=== PATIENT | female | born 1940 | race Caucasian/White ===

== ENCOUNTER 2016-03-08 14:50 | Inpatient (IN) ==
[2016-03-08] MEDS ORDERED: Vancomycin 1,000 MG in D5% in Water 250 ML IVPB ONE (15:57)
--- NOTE | 2016-03-08 16:32 | Emergency Department Note ---
START Narrative - START START: I examined this patient and my medical decision-making was reviewed with the CHANNEL LIP WETTER/PA/Advanced Practice Nurse/Resident Physician. I agree with the documented findings, disposition and treatment plan as described except to the extent set forth below. ED attending note: Patient seen with emergency medicine resident Dr. Pizano. Please see a copy of his note for details of the H&P, evaluation, management and disposition of this patient. We independently had [id number] contact with the patient Briefly: 75-year-old patient advanced peripheral vascular disease, had multiple toe amputations on the left foot including the great toe and second third toes. Has been appears to be cellulitis swelling and pain of the foot. Lab work and imaging are pending. We will exclude the possibility of osteomyelitis. Disposition pending. Patient stable.
[2016-03-08 16:37] LABS: Basophils # 0.1 K/mcL (0.0-0.2); Basophils % 0.6 %; Eosinophils # 0.2 K/mcL (0.0-0.6); Eosinophils % 1.8 %; Hematocrit 35.5 % (35.3-44.9); Hemoglobin 10.8 g/dL (11.5-15.4); Immature Granulocytes % 0.6 % (0-4); Lymphocytes # 1.1 K/mcL (0.6-4.6); Lymphocytes % 7.8 %; Mean Corpuscular HGB Conc 30.4 g/dL (31.6-35.5); Mean Corpuscular Hemoglobin 24.9 pg (28.0-33.3); Mean Corpuscular Volume 81.8 fL (83.0-100.0); Mean Platelet Volume 9.8 fL (9.4-12.4); Monocytes % 7.6 %; Neutrophils # 11.1 K/mcL (1.6-8.9); Platelet Count 415 K/mcL (140-400); Red Blood Count 4.34 M/mcL (3.82-4.97); Red Cell Distribution Width 16.6 % (11.5-14.5); Segmented Neutrophils % 81.6 %
[2016-03-08 16:45] LABS: INR 3.6; Prothrombin Time 40.2 Seconds (9.4-12.1)
[2016-03-08 16:49] LABS: Calcium 9.6 mg/dL (8.6-10.8); Potassium 4.2 mEq/L (3.5-4.5)
[2016-03-08] MEDS ORDERED: 0.9 % Sodium Chloride 1,000 ML IV ONE (17:36)
--- NOTE | 2016-03-08 17:54 | Emergency Department Note ---
Disposition Clinical Impression: Cellulitis Qualifiers: Site of cellulitis: extremity Site of cellulitis of extremity: lower extremity Laterality: left Qualified Code(s): L03.116 - Cellulitis of left lower limb Osteomyelitis Qualifiers: Osteomyelitis location: foot Laterality: left Chronicity: acute Qualified Code( s): M86.172 - Other acute osteomyelitis, left ankle and foot Disposition: Admitted As Inpatient Condition: Good Referrals: Hermes Page DO [Primary Care Provider] - Forms: ED Satisfaction Letter Time of Disposition: 18:26 Extremity Problem HPI - General Chief complaint: ED Extremity Problem,Nontraumatic Stated complaint: L foot blister/wound Time Seen by Provider: 03/08/16 15:36 Source: patient Limitations: no limitations Nursing Notes Reviewed: Yes Vital Signs Reviewed: Yes - History of Present Illness HPI Narrative: Patient presents with personal vehicle to be evaluated for left lower extremity swelling redness and drainage. She had a blister on insulin but that ruptured a day or 2 ago. She denies any fevers or chills nausea vomiting diarrhea. No other issues according to her. She is just concerned because she completed a course of treatment for sinusitis the left foot and wanted to have it evaluated. She is cared for by Dr. Mendez at this facility [facility] Subjective Complaint: extremity pain Injury Location: left, lower extremity Pain Scale: 0 Quality: aching Radiation: distal Improves with: nothing Worsens with: nothing Associated symptoms: Reports: swelling, redness Context: history of peripheral vascular disease - Related Data Home Medications Medication Instructions Recorded Confirmed Amlodipine [Norvasc] 5 mg PO DAILY 06/25/15 03/02/16 Clopidogrel [Plavix] 75 mg PO DAILY 06/25/15 03/02/16 Furosemide [Lasix] 40 mg PO BID 06/25/15 03/02/16 Hydrocodone/Acetaminophen [Vicodin 1 each PO Q6H PRN 06/25/15 03/02/16 Es 7.5-300 mg Tablet] Isosorbide DInitrate [Isochron] 30 mg PO QDPC 06/25/15 03/02/16 LORazepam [Lorazepam] 0.5 mg PO BID PRN 06/25/15 03/02/16 Levothyroxine [Synthroid] 175 mcg PO 0630 06/25/15 03/02/16 Meclizine [Antivert] 25 mg PO Q8H PRN MDD nauea 06/25/15 03/02/16 Metoprolol Tartrate [Lopressor] 50 mg PO BID 06/25/15 03/02/16 Mirtazapine [Remeron] 15 mg PO HS PRN 06/25/15 03/02/16 Multivit-Min/FA/Lycopen/Lutein [A 1 each PO QDPC 06/25/15 03/02/16 Thru Z Select Multivit Tab] Omeprazole [PriLOSEC] 20 mg PO DAILY 06/25/15 03/02/16 Paricalcitol [Zemplar] 1 mcg PO DAILY 06/25/15 03/02/16 TraMADol [Ultram] 50 mg PO Q6H PRN 06/25/15 03/02/16 Fluconazole [Diflucan] 150 mg PO DAILY 03/02/16 03/02/16 Sulfamethoxazole/Trimeth SS 1 each PO BID 03/02/16 03/02/16 [Bactrim] Previous Rx's Medication Instructions Recorded Acetaminophen [Tylenol] 650 mg PO Q6HR PRN #0 tablet 06/28/15 Docusate [Colace] 100 mg PO BID PRN #0 capsule 06/28/15 MOM Conc [MILK OF MAGNESIA conc] 10 ml PO DAILY PRN #0 ud.liq 06/28/15 Simvastatin [Zocor] 20 mg PO HS tablet 06/28/15 Warfarin [Coumadin] 3 mg PO 1800 #30 tablet 07/03/15 Oxycodone HCl/Acetaminophen 1 - 2 each PO Q6H PRN #24 tablet 07/06/15 [Percocet 5-325 mg Tablet] CloNIDine HCl 0.1 mg PO BID #60 tablet 07/16/15 Insulin NPH/REG 70/30 (HUMAN) 28 unit SQ BIDAC #2 vial 07/16/15 [Humulin 70/30 Vial] Zinc Sulfate 220 mg PO DAILY #30 capsule 07/16/15 Allergies Allergy/AdvReac Type Severity Reaction Status Date / Time codeine Allergy Hives Verified 03/02/16 10:31 Penicillins [PCN] Allergy Hives Verified 03/02/16 10:31 All systems ED: reviewed and negative except as stated. Constitutional: Denies: fever, chills Cardiovascular: Denies: chest pain, palpitations Respiratory: Denies: cough, dyspnea, wheezes, hemoptysis Gastrointestinal: Denies: abdominal pain, nausea, vomiting Genitourinary: Denies: frequency Musculoskeletal: Denies: back pain, neck pain Neurological: Denies: headache Past Medical History - Past Medical History Attestation: Yes The following information was validated with the patient. Source: patient Medical history: Reports: arthritis, asthma, DVT, diabetes, hyperlipidemia, hypertension, myocardial infarction, peripheral artery disease, other Surgical history: Reports: carotid endarterectomy, cholecystectomy, orthopedic, other, other (She has had amputation of the left big toe.) Psychiatric history: Reports: anxiety, depression - Social History Smoking Status: Former smoker Smokeless Tobacco Status: No Alcohol use: Reports: none Drug use: Reports: none Physical Exam - General Limitations: no limitations General appearance: alert, in no apparent distress - Head Head exam: atraumatic, normocephalic, normal inspection - Eye Eye exam: Present: normal appearance, PERRL, EOMI - Respiratory Respiratory exam: Present: normal lung sounds bilaterally - Cardiovascular Cardiovascular exam: Present: regular rate, normal rhythm, normal heart sounds - Extremities Exam Extremities exam: Present: normal inspection, full ROM. Absent: tenderness, pedal edema - Neurological Exam Neurological exam: Present: alert, oriented X3, CN II-XII intact. Absent: normal gait (Patient is wheelchair bound) - Psychiatric Psychiatric exam: Present: normal affect, normal mood - Skin Skin exam: Present: warm, dry, intact, normal color Course Course Narrative: Patient seen and examined the time of arrival. See history of present illness. 75-year-old female presents for personal vehicle for evaluation of redness swelling and blister to the left foot. She was seen by her voice network engineer several weeks ago and has been on antibiotics for the last several days for cellulitis and infection. She has no blood clots in the left lower extremity. Presents here today with a large blister that ruptured on the medial aspect of her left foot. There is redness swelling and warmth to the foot radiating all the way up to the proximal tibia. There is no crepitus to the skin and evaluation. Vital signs are stable she is afebrile. Right lower extremity does have drainage from the catheter no signs of cellulitis or infection. Patient has tenderness over the dorsum of the foot and she has difficulty with movement of the toes. Showed he has what appears to be in a dictation of the great toe of the left foot secondary to diabetes. Patient is concerning for diabetic foot related infection and osteomyelitis based on exam and presentation. Basic labs ESR first dose IV antibiotics as well as imaging ordered on initial triage. Patient stable a syncopal event. Disposition pending workup and treatment course - Reevaluation(s) Reevaluation #1: Patient found to have mild elevated white blood cell count and ESR greater than 130. Patient is a x-ray of the foot that shows what appears to be bony deterioration of the calcaneus and medial malleolus. CT imaging warranted at this time. Patient started on IV vancomycin. She at this point was discussed with the on-call voice network engineer Dr. thompson. He recommended admission to the hospital for further evaluation by podiatry. Rest of her laboratory workup including anemia and elevated creatinine appear to be within baseline limits at this point. Patient will be discussed with the hospitalist for admission process and what appears to be osteomyelitis and cellulitis of left lower extremity. Patient stable form to this plan. IV antibiotics provided this time. Time: 18:25 Reevaluation #2: Patient discussed with the hospitalist Dr. land. Recommended Zosyn for IV treatment of osteomyelitis. Patient stable a significant bed. Patient will be admitted to hospitals for definitive management. Other recommendations at this time. Time: 18:50 Vital Signs Temperature 97.7 F 03/08/16 14:51 Pulse Rate 64 03/08/16 14:51 Respiratory Rate 16 03/08/16 14:51 Blood Pressure 153/59 03/08/16 14:51 O2 Sat by Pulse Oximetry 100 03/08/16 14:51 Temperature 97.7 F 03/08/16 14:51 Pulse Rate 65 03/08/16 16:48 Respiratory Rate 17 03/08/16 16:48 Blood Pressure 151/59 03/08/16 16:48 O2 Sat by Pulse Oximetry 100 03/08/16 16:48 Oxygen Delivery Oxygen Delivery Room Air Extremity Problem, Nontraumati - MDM Narrative Medical decision making narrative: Synovitis, osteomyelitis - Medical Records Medical records reviewed: Yes I reviewed the patient's medical records. - Lab Data Lab results reviewed: Yes I reviewed the patient's lab results. Result diagrams: 03/08/16 16:25 03/08/16 16:25 Lab Results 03/08/16 03/08/16 03/08/16 Range/Units 16:25 16:25 16:25 WBC 13.5 H (4.3-11.1) K/mcL RBC 4.34 (3.82-4.97) M/mcL Hgb 10.8 L (11.5-15.4) g/dL Hct 35.5 (35.3-44.9) % MCV 81.8 L (83.0-100.0) fL MCH 24.9 L (28.0-33.3) pg MCHC 30.4 L (31.6-35.5) g/dL RDW 16.6 H (11.5-14.5) % Plt Count 415 H (140-400) K/mcL MPV 9.8 (9.4-12.4) fL Immature Gran % 0.6 (0-4) % Seg Neutrophils % 81.6 % Lymphocytes % 7.8 % Monocytes % 7.6 % Eosinophils % 1.8 % Basophils % 0.6 % Neutrophils # 11.1 H (1.6-8.9) K/mcL Lymphocytes # 1.1 (0.6-4.6) K/mcL Monocytes # 1.0 (0.0-1.3) K/mcL Eosinophils # 0.2 (0.0-0.6) K/mcL Basophils # 0.1 (0.0-0.2) K/mcL ESR >= 130 H (0-15) mm/hr PT (9.4-12.1) Seconds INR Sodium 137 (136-145) mEq/L Potassium 4.2 (3.5-4.5) mEq/L Chloride 97 L (98-109) mEq/L Carbon Dioxide 27 (19-29) mEq/L BUN 33 H (7-20) mg/dL Creatinine 2.44 H (0.57-1.11) mg/dL Est GFR ( Amer) 23 L (> 60) Est GFR (Non-Af Amer) 19 L (> 60) BUN/Creatinine Ratio 14 (6-26) Glucose 58 L (70-99) mg/dL Calculated Osmolality 289 (280-300) Calcium 9.6 (8.6-10.8) mg/dL 03/08/16 Range/Units 16:25 WBC (4.3-11.1) K/mcL RBC (3.82-4.97) M/mcL Hgb (11.5-15.4) g/dL Hct (35.3-44.9) % MCV (83.0-100.0) fL MCH (28.0-33.3) pg MCHC (31.6-35.5) g/dL RDW (11.5-14.5) % Plt Count (140-400) K/mcL MPV (9.4-12.4) fL Immature Gran % (0-4) % Seg Neutrophils % % Lymphocytes % % Monocytes % % Eosinophils % % Basophils % % Neutrophils # (1.6-8.9) K/mcL Lymphocytes # (0.6-4.6) K/mcL Monocytes # (0.0-1.3) K/mcL Eosinophils # (0.0-0.6) K/mcL Basophils # (0.0-0.2) K/mcL ESR (0-15) mm/hr PT 40.2 H (9.4-12.1) Seconds INR 3.6 Sodium (136-145) mEq/L Potassium (3.5-4.5) mEq/L Chloride (98-109) mEq/L Carbon Dioxide (19-29) mEq/L BUN (7-20) mg/dL Creatinine (0.57-1.11) mg/dL Est GFR ( Amer) (> 60) Est GFR (Non-Af Amer) (> 60) BUN/Creatinine Ratio (6-26) Glucose (70-99) mg/dL Calculated Osmolality (280-300) Calcium (8.6-10.8) mg/dL - Radiology Data Radiology results reviewed: Yes I reviewed the patient's radiology results. X-rays consistent with deterioration of the bony anatomy of the left foot. CT imaging pending
[2016-03-08] MEDS ORDERED: Piperacillin/Tazobactam 3.375 GM in D5% in Water (Mini-Bag+) 100 ML IVPB ONE (18:48)
[2016-03-08] MEDS ORDERED: Cefepime HCl 1,000 MG in D5% in Water (Mini-Bag+) 100 ML IVPB ONE (19:23)
--- NOTE | 2016-03-08 21:01 | Internal Med History&Physical ---
<FedericoKiesha Rodriguez Uma - Last Filed: 03/09/16 05:39> Date of Encounter: 03/08/16 Time of Encounter: 20:00 Assessment and Plan (1) Diabetic ulcer of left heel Current visit: No Status: Acute Concern for osteomyelitis WBC elevated CT not suggestive of osteomyelitis, 5th phalanx with soft tissue defect with diffuse fat stranding Cefipime, Zosyn and Vanc given in ED Will begin Vanc and Levoquin Podiatry consult-Dr. Marshall or Dr. Mendez to see patient in am Continue to follow blood cultures (2) Peripheral vascular disease Current visit: Yes Status: Chronic Arterial doppler to assess vascular disease Patient with history of vascular stent to left popliteal (3) Hypertension Current visit: No Status: Chronic Continue home medication as verified on 03/02/16 Patient unable to verify home medications Unable to contact Will verify home medications in am Qualifiers: Hypertension type: essential hypertension Qualified Code(s): I10 - Essential (primary) hypertension (4) CKD (chronic kidney disease) stage 4, GFR 15-29 ml/min Current visit: No Status: Chronic Renal function currently at baseline Continue to follow Abx per renal dosing by pharmacy (5) Femoral vein thrombosis, 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 Patient continues with coumadin clinic US doppler to left lower extremity INR supratherapuetic at 3.6 Will hold coumadin x1 Serial INR (6) DM2 (diabetes mellitus, type 2) Current visit: No Status: Chronic Continue home medication-Humalin 70/30 28u SQ BID Low-dose correction ACHS Patient unable to verify home medications Unable to contact Will verify home medications in am Qualifiers: Diabetes mellitus complication status: with kidney complications Diabetes mellitus complication detail: with chronic kidney disease Diabetes mellitus termite treater helper insulin use: unspecified termite treater helper insulin use status Chronic kidney disease stage: stage 4 (severe) Qualified Code(s): E11.22 - Type 2 diabetes mellitus with diabetic chronic kidney disease; N18.4 - Chronic kidney disease, stage 4 (severe) (7) CHF (congestive heart failure) Current visit: Yes Status: Acute Not an acute exacerbation Continue home medication as verified in ED 03/02/16 Qualifiers: Congestive heart failure type: unspecified congestive heart failure type Congestive heart failure chronicity: unspecified congestive heart failure chronicity Qualified Code(s): I50.9 - Heart failure, unspecified (8) Hypothyroidism Current visit: No Status: Chronic Continue home levothyroxine Patient unable to verify home medications Unable to contact Will verify home medications in am Qualifiers: Hypothyroidism type: unspecified Qualified Code(s): E03.9 - Hypothyroidism , unspecified Internal Medicine - H&P: HPI Chief complaint: wound on left foot Admitted From: Emergency Dept Plans for Post Hospital Care: Home History of present illness: Ms. Olivia is a 75 year old female who presents with multiple soft tissue wounds to left foot. Most concerning is a large wound located on the medial left heel. Patient states that a few days ago, her home health nurse was dressing the chronic wounds on her feet and noticed that a blister had burst open on the medial left heel. She states that wound was draining onto her socks. Patient admits to painful redness and swelling in the left foot and leg. She rates this pain as 8/10. Patient presented to the ED 6 days ago (03/02/16) for the left heel wound. Dr. Mendez, was contact by ED and recommended that the blister be cleaned and dressed with Adaptic and a bulky dressing. Patient also has a wound on the lateral left foot near the 5th toe, a wound on top of left second toe, a wound on the top of the left third toe, and a wound on the posterior right leg. She states that she has had multiple episodes of cellulitis. She also has had a DVT in left extremity, which caused her to be placed on coumadin. She presented to the ED after urging of staff at coumadin clinic today. Admits headache. Denies dizziness, fever, chills. Past Med Surg Social Fam HX - Past Medical History Medical history: arthritis, asthma, DVT, diabetes, hyperlipidemia, hypertension , myocardial infarction, peripheral artery disease, other Psychiatric history: anxiety, depression - Past Surgical History Surgical History: carotid endarterectomy, cholecystectomy, orthopedic, other, other (She has had amputation of the left big toe.) - Social History Smoking Status: Former smoker Smokeless Tobacco Status: No Alcohol use: none Drug use: none - Family History Mother Family Member Ethnicity: Non- Living Status: Hx Family Cardiac Disorders: No Hx Family Respiratory Disorders: No Hx Family Cancer: Yes Hx Family GI Disorders: No Hx Family Endocrine Disorder: No Hx Family Neuromuscular Disorders: No Hx Family Neurologic Disorders: No Hx Family HEENT Disorders: No Hx Family Autoimmune Disorders: No Internal Medicine - H&P: Meds Amlodipine [Norvasc] 5 mg PO DAILY 06/25/15 [History] Furosemide [Lasix] 40 mg PO BID 06/25/15 [History] Hydrocodone/Acetaminophen [Vicodin Es 7.5-300 mg Tablet] 1 each PO Q6H PRN 06/24 [History] Isosorbide DInitrate [Isochron] 30 mg PO QDPC 06/25/15 [History] LORazepam [Lorazepam] 0.5 mg PO BID PRN 06/25/15 [History] Levothyroxine [Synthroid] 175 mcg PO 0630 06/25/15 [History] Meclizine [Antivert] 25 mg PO Q8H PRN MDD nauea 06/25/15 [History] Metoprolol Tartrate [Lopressor] 50 mg PO BID 06/25/15 [History] Mirtazapine [Remeron] 15 mg PO HS PRN 06/25/15 [History] Multivit-Min/FA/Lycopen/Lutein [A Thru Z Select Multivit Tab] 1 each PO QDPC [History] Omeprazole [PriLOSEC] 20 mg PO DAILY 06/25/15 [History] Paricalcitol [Zemplar] 1 mcg PO DAILY 06/25/15 [History] TraMADol [Ultram] 50 mg PO Q6H PRN 06/25/15 [History] Docusate [Colace] 100 mg PO BID PRN #0 capsule 06/28/15 [Rx] MOM Conc [MILK OF MAGNESIA conc] 10 ml PO DAILY PRN #0 ud.liq 06/28/15 [Rx] Warfarin [Coumadin] 3 mg PO 1800 #30 tablet 07/03/15 [Rx] Oxycodone HCl/Acetaminophen [Percocet 5-325 mg Tablet] 1 - 2 each PO Q6H PRN # 24 tablet 07/06/15 [Rx] Insulin NPH/REG 70/30 (HUMAN) [Humulin 70/30 Vial] 28 unit SQ BIDAC #2 vial 10/22 [Rx] Fluconazole [Diflucan] 150 mg PO DAILY 03/02/16 [History] Sulfamethoxazole/Trimeth SS [Bactrim] 1 each PO BID 03/02/16 [History] Amlodipine [Norvasc] 5 mg PO DAILY 03/09/16 [History] Becaplermin [Regranex] 0.01 gm TP BID 03/09/16 [History] Benzonatate [Tessalon] 100 mg PO TID PRN 03/09/16 [History] Gabapentin [Neurontin] 100 mg PO HS 03/09/16 [History] LORazepam [Ativan] 0.5 mg PO BID PRN 03/09/16 [History] Lisinopril [Zestril] 20 mg PO DAILY 03/09/16 [History] Nystatin Cream [Mycostatin Cream] 1 appl TP BID 03/09/16 [History] Nystatin POWDER [Nystop] 1 appl TP BID 03/09/16 [History] Sulfamethoxazole/Trimeth DS [Bactrim DS] 1 each PO BID 03/09/16 [History] Tramadol HCl [Ultram] 50 mg PO Q6HR PRN 03/09/16 [History] Allergies codeine Allergy (Verified 03/02/16 10:31) Hives Penicillins [PCN] Allergy (Verified 03/02/16 10:31) Hives All Systems PM: A 10-system review of systems was performed and is negative for pertinent findings except as documented above in the HPI. 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 Erythema is associated with pain.), new lesions, non-healing lesions, skin ulcer - Psychiatric Psychiatric: anxiety - Constitutional Vitals: Temp Pulse Resp BP Pulse Ox 97.7 F 69 16 161/72 99 03/08/16 14:51 03/08/16 19:48 03/08/16 19:48 03/08/16 19:48 03/08/16 19:48 General appearance: Present: A&O X 3, pleasant, obese, answers questions appropriately - Head Head exam: Present: atraumatic, normal inspection, normocephalic - ENT Additional comments: Posterior periauricular area with silvery scale - Neck Neck exam general surgery: Present: full ROM Additional comments: Face and neck with coarse black and silver hairs to chin, upper lip, cheeks - Respiratory Respiratory exam: Present: decreased breath sounds, CTAB. Absent: rales, wheezes - Cardiovascular Cardiovascular exam: Present: RRR, +S1, +S2 - GI/Abdominal GI/Abdominal exam: Present: diminished bowel sounds (difficult to appreciate due to protuberant nature of abdomen) Additional comments: obese, non-distended - Additional comments: Inguinal folds with white areas of crusting and surrounding erythema - Extremities Exam Additional comments: Left lower extremity, ankle, and foot with 1+ edema, erythema and warmth to mid- calf, tenderness to palpation. Left posterior medial malleolus with [id number] open ulcer draining serosanguinous fluid. Left lateral 5th phalanx with 1 cm ulcer. Left 2nd distal phalanx and Left 3rd distal phalanx with erythematous draining areas of denuded skin. S/p amputation of left great toe. DP 1+ bilaterally with doppler. TP left unable to appreciate due to ulcer located at TP. Right lower extremity with [id number] ulcer with pink borders with surrounding desquamation. No warmth, erythema, or swelling. DP right 1+ with doppler. TP right 1+ with doppler. Bilateral lower extremities with thickened, leathery skin with thick brown flakes. - Psychiatric Psychiatric exam: Present: normal affect, normal mood Internal Med - H&P Results - Labs CBC & Chem 7: 03/08/16 16:25 03/08/16 16:25 - Attending Attestation I examined this patient and my medical decision-making was reviewed with the COLD MILL SUPERVISOR/PA/Advanced Practice Nurse/Resident Physician. I agree with the documented findings, disposition and treatment plan as described except to the extent set forth below. <Winnie Hart - Last Filed: 03/09/16 10:46> Date of Encounter: 03/08/16 Time of Encounter: 21:30 Internal Medicine - H&P: HPI History of present illness: Ms. Olivia is a 75 year old female All Systems PM: A 10-system review of systems was performed and is negative for pertinent findings except as documented above in the HPI. - Constitutional Vitals: Temp Pulse Resp BP Pulse Ox 98.3 F 65 16 121/70 90 L 03/09/16 07:27 03/09/16 07:27 03/09/16 07:27 03/09/16 07:27 03/09/16 07:27 Internal Med - H&P Results - Labs CBC & Chem 7: 03/09/16 05:12 03/09/16 05:12 Labs: Short CBC 03/09/16 Range/Units 05:12 WBC 10.6 (4.3-11.1) K/mcL Hgb 9.8 L (11.5-15.4) g/dL Hct 32.4 L (35.3-44.9) % Plt Count 370 (140-400) K/mcL Neutrophils # 8.1 (1.6-8.9) K/mcL BMP 03/09/16 05:12 Sodium 138 Potassium 4.3 Chloride 99 Carbon Dioxide 27 BUN 29 H Creatinine 2.22 H Glucose 60 L Calcium 9.0 - Attending Attestation Patient documented to have PCN allergy however no adverse reaction reported after receiving Zosyn in the ER. Podiatry to follow. Alter abx therapy depending on culture results.
[2016-03-08] MEDS ORDERED: *HR* LORazepam 0.5 MG TABLET PO PRN (21:40)
[2016-03-08] MEDS ORDERED: Mirtazapine 15 MG TABLET PO PRN (21:40)
[2016-03-08] MEDS ORDERED: Dextrose Gel 15 GM PO PRN ×2 (21:58)
[2016-03-08] MEDS ORDERED: *HR* Dextrose 50 % in Water (Syg) 50 ML SYRINGE IVP PRN (21:58)
[2016-03-08] MEDS ORDERED: D5% in Water 1,000 ML IV PRN (21:58)
[2016-03-08] MEDS: Insulin LISPRO 300 UNITS/3 ML VIAL SQ SCH (22:10)
[2016-03-08] MEDS: Insulin NPH/REG 70/30 100 UNIT/ML (x5UNIT) SQ SCH (22:11)
[2016-03-08] MEDS: traMADol 50 MG TABLET PO PRN (22:20)
[2016-03-09] MEDS: traMADol 50 MG TABLET PO PRN ×2 (04:55→18:29)
[2016-03-09 05:54] LABS: Basophils # 0.1 K/mcL (0.0-0.2); Basophils % 0.8 %; Eosinophils # 0.3 K/mcL (0.0-0.6); Eosinophils % 2.5 %; Hematocrit 32.4 % (35.3-44.9); Hemoglobin 9.8 g/dL (11.5-15.4); Immature Granulocytes % 0.6 % (0-4); Lymphocytes # 1.2 K/mcL (0.6-4.6); Lymphocytes % 11.7 %; Mean Corpuscular HGB Conc 30.2 g/dL (31.6-35.5); Mean Corpuscular Hemoglobin 24.9 pg (28.0-33.3); Mean Corpuscular Volume 82.4 fL (83.0-100.0); Mean Platelet Volume 9.9 fL (9.4-12.4); Monocytes # 0.9 K/mcL (0.0-1.3); Monocytes % 8.4 %; Neutrophils # 8.1 K/mcL (1.6-8.9); Platelet Count 370 K/mcL (140-400); Red Blood Count 3.93 M/mcL (3.82-4.97); Red Cell Distribution Width 16.7 % (11.5-14.5)
[2016-03-09 05:58] LABS: INR 3.4; Prothrombin Time 37.9 Seconds (9.4-12.1)
[2016-03-09] MEDS ORDERED: Vancomycin 1,000 MG in D5% in Water 250 ML IVPB SCH (06:00)
[2016-03-09] MEDS ORDERED: Levofloxacin 750 MG/150 ML 750 MG/150 ML BAG IVPB ONE (06:00)
[2016-03-09 06:21] LABS: Potassium 4.3 mEq/L (3.5-4.5)
[2016-03-09] MEDS ORDERED: Furosemide 40 MG TABLET PO SCH (08:00)
[2016-03-09] MEDS ORDERED: Aminoglycoside Consult 1 EACH MC ONE (08:28)
[2016-03-09] MEDS ORDERED: Levofloxacin 750 MG/150 ML 750 MG/150 ML BAG IVPB SCH (09:00)
[2016-03-09] MEDS ORDERED: Nystatin Cream 15 GM TUBE TP SCH (09:00)
[2016-03-09] MEDS: Insulin LISPRO 300 UNITS/3 ML VIAL SQ SCH ×3 (09:01→17:13)
[2016-03-09] MEDS: Insulin NPH/REG 70/30 100 UNIT/ML (x5UNIT) SQ SCH (09:02)
[2016-03-09] MEDS: Zinc Sulfate 220 MG CAPSULE PO SCH (09:20)
[2016-03-09] MEDS: amLODIPine 5 MG TABLET PO SCH (09:20)
[2016-03-09] MEDS: Desitin (Zinc Oxide) 56 GM TUBE TP SCH ×2 (09:21→21:09)
[2016-03-09] MEDS: Isosorbide MONOnitrate (24 HR) 30 MG TAB.ER.24H PO SCH (09:21)
[2016-03-09] MEDS: Multivit/Ca/Min/Fe/FA 1 TAB TABLET PO SCH (09:21)
[2016-03-09] MEDS ORDERED: Vancomycin 1,000 MG in D5% in Water 250 ML IVPB ONE (10:00)
--- NOTE | 2016-03-09 11:33 | Internal Med Progress Note ---
<Dimitri Napier - Last Filed: 03/09/16 18:15> Date of Encounter: 03/09/16 Time of Encounter: 11:33 - Assessment and plan (1) Cellulitis of left lower extremity Current Visit: No Status: Acute Assessment and plan: Lymphedema vs cellulitis, she told me she has this pain and slight edema/skin changes for last three yrs and no significant change recently, plus she was on bactrim as outpt for cellulitis, no purulent, no SIRS, will switch from vanco/ levaquin to doxycycline, could be venous stasis, she is diabetic and hx of peripheral vascular disease, will f/u in AM. 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 (3) CKD (chronic kidney disease) stage 4, GFR 15-29 ml/min Current Visit: Yes Status: Acute Assessment and plan: Somewhat worse than baseline, will stop vanco/levaquin, hold lasix po BID, recheck in AM. (4) Hypothyroidism Current Visit: Yes Status: Acute Assessment and plan: Con't synthroid. Qualifiers: Qualified Code(s): E03.9 - Hypothyroidism, unspecified (5) Diabetic ulcer of both feet Current Visit: Yes Status: Acute Assessment and plan: Podietry consulted, appreciated their bedside debridement, will follow their wound care instructions and f/u as outpt. Qualifiers: Qualified Code(s): E11.621 - Type 2 diabetes mellitus with foot ulcer; L97.519 - Non-pressure chronic ulcer of other part of right foot with unspecified severity; L97.529 - Non-pressure chronic ulcer of other part of left foot with unspecified severity (6) DVT prophylaxis Current Visit: Yes Status: Acute Assessment and plan: Supratherapeutic INR. - Subjective Interval history: Pt seen and examined, she states that her left leg has been painful since three yrs ago and the appearance of skin has not changed much since then, weeping from wound in left foot has stopped. - Constitutional Vitals: Temp Pulse Resp BP Pulse Ox 98.1 F 64 18 114/50 89 L 03/09/16 11:09 03/09/16 11:09 03/09/16 11:09 03/09/16 11:09 03/09/16 11:09 General appearance: Present: cooperative, A&O X 3, obese, answers questions appropriately - Head Head exam: Present: atraumatic, normocephalic - Eye Eye exam: Present: PERRL, conjuntiva pink, sclera anicteric Pupils: Present: PERRL - Neck Neck exam general surgery: Present: supple, trachea midline. Absent: lymphadenopathy - Respiratory Respiratory exam: Present: CTAB. Absent: accessory muscle use, rales, rhonchi, wheezes - Cardiovascular Cardiovascular exam: Present: RRR, +S1, +S2. Absent: diastolic murmur, gallop, rubs, systolic murmur - GI/Abdominal GI/Abdominal exam: Present: normal bowel sounds, soft, no peritoneal signs. Absent: distended, tenderness - Extremities Exam Extremities exam: Present: tenderness (to palpation of left foot), warm, radial pulses palpable and symetrical. Absent: calf tenderness, cyanotic, pedal edema Additional comments: multiple dressing on both feet for wounds and ulcers - Neurological Exam Neurological exam: Present: CN II-XII intact, oriented X3, no focal deficits. Absent: pronater drift, facial droop, speech deficit - Skin Skin exam: Present: dry, intact Internal Medicine: Result - Labs CBC & Chem 7: 03/09/16 05:12 03/09/16 05:12 Labs: Short CBC 03/09/16 Range/Units 05:12 WBC 10.6 (4.3-11.1) K/mcL Hgb 9.8 L (11.5-15.4) g/dL Hct 32.4 L (35.3-44.9) % Plt Count 370 (140-400) K/mcL Neutrophils # 8.1 (1.6-8.9) K/mcL BMP 03/09/16 05:12 Sodium 138 Potassium 4.3 Chloride 99 Carbon Dioxide 27 BUN 29 H Creatinine 2.22 H Glucose 60 L Calcium 9.0 - ABG Interpretation ABG results: PT/INR, D-dimer PT 37.9 Seconds (9.4-12.1) H 03/09/16 05:12 Consult Discharge Plan - Plan Referrals: Hermes Page DO [Primary Care Provider] - <Puneet Sims - Last Filed: 03/09/16 19:05> Date of Encounter: 03/09/16 - Constitutional Vitals: Temp Pulse Resp BP Pulse Ox 98.8 F 64 16 135/64 94 L 03/09/16 16:01 03/09/16 16:01 03/09/16 16:01 03/09/16 16:01 03/09/16 16:01 Internal Medicine: Result - Labs CBC & Chem 7: 03/09/16 05:12 03/09/16 05:12 Labs: Short CBC 03/09/16 Range/Units 05:12 WBC 10.6 (4.3-11.1) K/mcL Hgb 9.8 L (11.5-15.4) g/dL Hct 32.4 L (35.3-44.9) % Plt Count 370 (140-400) K/mcL Neutrophils # 8.1 (1.6-8.9) K/mcL BMP 03/09/16 05:12 Sodium 138 Potassium 4.3 Chloride 99 Carbon Dioxide 27 BUN 29 H Creatinine 2.22 H Glucose 60 L Calcium 9.0 - ABG Interpretation ABG results: PT/INR, D-dimer PT 37.9 Seconds (9.4-12.1) H 03/09/16 05:12 - Attending Attestation I examined this patient and my medical decision-making was reviewed with the PIPE CLEANER/PA/Advanced Practice Nurse/Resident Physician. I agree with the documented findings, disposition and treatment plan as described except to the extent set forth below. Switch to doxy. Monitor coags.
[2016-03-09] MEDS: Doxycycline 100 MG in 0.9 % Sodium Chloride Mini Bag 100 ML IVPB SCH ×2 (12:26→18:30)
--- NOTE | 2016-03-09 14:57 | Podiatry Consult Note ---
Date of Encounter: 03/09/16 Time of Encounter: 11:30 Assessment and Plan (1) Cellulitis of left lower extremity Current visit: No Status: Acute Xray and CT scan complete- negative for osteomyelitis or abscess formation Clinical picture concurrent with CT appearance Continue current antibiotic therapy per internal med for treatment of cellulitis (2) Diabetic ulcer of left heel Current visit: No Status: Inactive Diabetic ulcers assessed at bedside Wounds cleansed with saline Debridement of all loose macerated tissue and sloughing skin surrounding wound to medial aspect of left foot Patient tolerated well Cleansed wounds with saline Serous drainage to medial foot wound- Maxsorb applied, 4x4 Adaptic to lateral foot wound and 4x4 Kerlex and coban to surround 4x4 and kerlex applied to right venous ulcer Mepilex previous to right heel for protection- to remain No need for I&D at this time Continue to treat medically for cellulitis Please elevate and float heels off of bed for protection Will order prevalon boots If not done will complete urine culture- was question of possible UTI at patients last wound clinic visit due to reports of AMS Will follow up after discharge in wound care. Will ordered bilateral LE arterial waveforms to assess blood flow due to decreased palpable pulses History of Present Illness HPI: Ms. Olivia is a 75 year old female who has been consulted to podiatry services per internal medicine. Patient is seen per Dr. Mendez in wound care clinic. She is treated for multiple non healing diabetic wounds and venous ulceration. Patient was seen in ED on 03/02 for newly erupted blister to medial aspect of right foot. Patient was discharged and to follow up in wound care. She was brought back to ED on 03/08 with cellulitis like symptoms and admitted thereafter. Patient states that blister appeared about 3 days before she came to ED the first time. States she is unsure if she injured the area prior to the blister. Patient states area is painful, dull ache in nature 5/10 at rest. Patient denies any fevers, chills, n/v, flu like symptoms or calf pain. Patient denies any drainage or odor but states her home health nurse takes care of the dressings. Past Med Surg Social Fam HX - Past Medical History Medical history: arthritis, asthma, DVT, diabetes, hyperlipidemia, hypertension , myocardial infarction, peripheral artery disease, other Psychiatric history: anxiety, depression - Past Surgical History Surgical History: carotid endarterectomy, cholecystectomy, orthopedic, other, other (She has had amputation of the left big toe.) - Social History Smoking Status: Former smoker Smokeless Tobacco Status: No Alcohol use: none Drug use: none - Family History Mother Family Member Ethnicity: Non- Living Status: Hx Family Cardiac Disorders: No Hx Family Respiratory Disorders: No Hx Family Cancer: Yes Hx Family GI Disorders: No Hx Family Endocrine Disorder: No Hx Family Neuromuscular Disorders: No Hx Family Neurologic Disorders: No Hx Family HEENT Disorders: No Hx Family Autoimmune Disorders: No Medications and Allergies Furosemide [Lasix] 40 mg PO BID 06/25/15 [History] Isosorbide DInitrate [Isochron] 30 mg PO DAILY 06/25/15 [History] LORazepam [Lorazepam] 0.5 mg PO BID PRN 06/25/15 [History] Metoprolol Tartrate [Lopressor] 50 mg PO BID 06/25/15 [History] Mirtazapine [Remeron] 15 mg PO HS PRN 06/25/15 [History] Multivit-Min/FA/Lycopen/Lutein [A Thru Z Select Multivit Tab] 1 tab PO DAILY [History] Omeprazole [PriLOSEC] 20 mg PO DAILY 06/25/15 [History] Paricalcitol [Zemplar] 1 mcg PO DAILY 06/25/15 [History] Oxycodone HCl/Acetaminophen [Percocet 5-325 mg Tablet] 1 - 2 each PO Q6H PRN # 24 tablet 07/06/15 [Rx] Fluconazole [Diflucan] 150 mg PO DAILY 03/02/16 [History] Amlodipine [Norvasc] 5 mg PO DAILY 03/09/16 [History] Becaplermin [Regranex] 0.01 gm TP BID 03/09/16 [History] Gabapentin [Neurontin] 100 - 200 mg PO HS 03/09/16 [History] Insulin NPH Hum/Reg Insulin Hm [Humulin 70/30 Kwikpen] 25 unit SQ HS 03/09/16 [ History] Insulin NPH Hum/Reg Insulin Hm [Humulin 70/30 Kwikpen] 50 unit SQ QAM 03/09/16 [ History] Levothyroxine Sodium [Levoxyl] 200 mcg PO DAILY 03/09/16 [History] Lisinopril [Zestril] 20 mg PO DAILY 03/09/16 [History] Nystatin Cream [Mycostatin Cream] 1 appl TP BID 03/09/16 [History] Nystatin POWDER [Nystop] 1 appl TP BID 03/09/16 [History] Tramadol HCl [Ultram] 50 - 100 mg PO TID PRN 03/09/16 [History] Warfarin [Coumadin] 1.5 mg PO WETH 03/09/16 [History] Allergies codeine Allergy (Verified 03/02/16 10:31) Hives Penicillins [PCN] Allergy (Verified 03/02/16 10:31) Hives All Systems Reviewed: A 10-system review of systems was performed and is negative for pertinent findings except as documented above in the HPI. Physical Exam - Constitutional Vitals: Temp Pulse Resp BP Pulse Ox 98.1 F 64 18 114/50 89 L 03/09/16 11:09 03/09/16 11:09 03/09/16 11:09 03/09/16 11:09 03/09/16 11:09 Exam: General Examination: CONSTITUTIONAL: Alert, oriented, in no acute distress, non-toxic. Poor historian. Unclear of history of current wound, stated she came in for blister but is unsure of where the blister is located or how it started. EXTREMITIES: CFT 3 seconds all toes. Edema +2 stasis dermatitis noted to BLE and pedal pulses only faintly palpable. Skin temperature warm toes to tibia. SKIN: Skin with decreased turgor, decreased subcutaneous tissue, skin thin and shiny with trophic changes associated with comorbidities as described in history.. NEUROLOGIC: Grossly diminished sensation to touch. Loss of protective sensation Wounds: Venous stasis wound posterior right le.8x2.3x0.1 appears to be healing without issue- skin viable, no slough, drainage or necrotic tissue Left foot medial border: open wound [id number] with macerated skin surrounding wound measuring in total 6.5cm x 7cm Debridement of macerated skin and slough, wound measuring [id number] 1.7cmx1.7cm area of eschar noted to center surrounded by healthy viable tissue. Slight amount of serous drainage noted. No areas of purulent drainage. No tunneling, sinus tracts or undermining. No appearance of abscess. No odor. Mild warmth. No fluctuance. Pain with palpation Left foot distal aspect toe #2 1.2cmx1.2cm- healing viable tissue. No drainage or warmth Left foot lateral border: [id number] in depth, appears to be healing and unchanged. Dry. No areas of drainage. no warmth. No odor. No sinus tracts, tunneling or undermining. No pain with palpation Results - Labs Result Diagrams: 03/09/16 05:12 03/10/16 04:43 Labs: Abnormal lab results Hgb 9.8 g/dL (11.5-15.4) L 03/09/16 05:12 Hct 32.4 % (35.3-44.9) L 03/09/16 05:12 MCV 82.4 fL (83.0-100.0) L 03/09/16 05:12 MCH 24.9 pg (28.0-33.3) L 03/09/16 05:12 MCHC 30.2 g/dL (31.6-35.5) L 03/09/16 05:12 RDW 16.7 % (11.5-14.5) H 03/09/16 05:12 ESR >= 130 mm/hr (0-15) H 03/08/16 16:25 PT 37.9 Seconds (9.4-12.1) H 03/09/16 05:12 BUN 29 mg/dL (7-20) H 03/09/16 05:12 Creatinine 2.22 mg/dL (0.57-1.11) H 03/09/16 05:12 Est GFR ( Amer) 26 (> 60) L 03/09/16 05:12 Est GFR (Non-Af Amer) 22 (> 60) L 03/09/16 05:12 Glucose 60 mg/dL (70-99) L 03/09/16 05:12 POC Glucose 146 (58-89) H 03/08/16 21:05 H & H 03/09/16 Range/Units 05:12 Hgb 9.8 L (11.5-15.4) g/dL Hct 32.4 L (35.3-44.9) % All other labs normal. Consult Discharge Plan - Plan Referrals: Hermes Page DO [Primary Care Provider] -
[2016-03-09] MEDS: Nystatin Cream 15 GM TUBE TP SCH (21:10)
[2016-03-10] MEDS: traMADol 50 MG TABLET PO PRN ×3 (01:10→18:19)
[2016-03-10 05:05] LABS: Prothrombin Time 33.2 Seconds (9.4-12.1)
[2016-03-10 05:18] LABS: Calcium 8.9 mg/dL (8.6-10.8); Potassium 4.6 mEq/L (3.5-4.5)
[2016-03-10] MEDS: Doxycycline 100 MG in 0.9 % Sodium Chloride Mini Bag 100 ML IVPB SCH ×2 (06:16→18:16)
[2016-03-10] MEDS: Insulin LISPRO 300 UNITS/3 ML VIAL SQ SCH ×3 (10:46→18:15)
[2016-03-10] MEDS: Zinc Sulfate 220 MG CAPSULE PO SCH (10:53)
[2016-03-10] MEDS: Desitin (Zinc Oxide) 56 GM TUBE TP SCH (10:53)
[2016-03-10] MEDS: amLODIPine 5 MG TABLET PO SCH (10:53)
[2016-03-10] MEDS: Isosorbide MONOnitrate (24 HR) 30 MG TAB.ER.24H PO SCH (10:53)
[2016-03-10] MEDS: Nystatin Cream 15 GM TUBE TP SCH (10:53)
[2016-03-10] MEDS: Multivit/Ca/Min/Fe/FA 1 TAB TABLET PO SCH (10:53)
--- NOTE | 2016-03-10 11:26 | Discharge Summary ---
<Dimitri Napier - Last Filed: 03/10/16 15:40> Date of Encounter: 03/10/16 Time of Encounter: 11:25 - Discharge Diagnosis (1) Cellulitis of left lower extremity Priority: Primary Status: Acute (2) Supratherapeutic INR Priority: Secondary Status: Acute (3) CKD (chronic kidney disease) stage 4, GFR 15-29 ml/min Priority: Secondary Status: Acute (4) Hypothyroidism Priority: Secondary Status: Acute Qualifiers: Qualified Code(s): E03.9 - Hypothyroidism, unspecified (5) Diabetic ulcer of both feet Priority: Secondary Status: Acute Qualifiers: Qualified Code(s): E11.621 - Type 2 diabetes mellitus with foot ulcer; L97.519 - Non-pressure chronic ulcer of other part of right foot with unspecified severity; L97.529 - Non-pressure chronic ulcer of other part of left foot with unspecified severity (6) DVT prophylaxis Priority: Secondary Status: Acute - Discharge Medications Prescriptions: Doxycycline 100 mg PO BID 5 Days LORazepam [Lorazepam] 0.5 mg PO BID PRN #10 tablet PRN Reason: Anxiety Levothyroxine [Synthroid] 175 mcg PO 0630 #5 tablet Simvastatin [Zocor] 20 mg PO HS #5 tablet Tramadol HCl [Ultram] 50 - 100 mg PO TID PRN #15 tablet PRN Reason: Pain Home Medications: Furosemide [Lasix] 40 mg PO BID 06/25/15 [History] Isosorbide DInitrate [Isochron] 30 mg PO DAILY 06/25/15 [History] Metoprolol Tartrate [Lopressor] 50 mg PO BID 06/25/15 [History] Mirtazapine [Remeron] 15 mg PO HS PRN 06/25/15 [History] Multivit-Min/FA/Lycopen/Lutein [A Thru Z Select Multivit Tab] 1 tab PO DAILY [History] Omeprazole [PriLOSEC] 20 mg PO DAILY 06/25/15 [History] Paricalcitol [Zemplar] 1 mcg PO DAILY 06/25/15 [History] Amlodipine [Norvasc] 5 mg PO DAILY 03/09/16 [History] Becaplermin [Regranex] 0.01 gm TP BID 03/09/16 [History] Gabapentin [Neurontin] 100 - 200 mg PO HS 03/09/16 [History] Insulin NPH Hum/Reg Insulin Hm [Humulin 70/30 Kwikpen] 25 unit SQ HS 03/09/16 [ History] Insulin NPH Hum/Reg Insulin Hm [Humulin 70/30 Kwikpen] 50 unit SQ QAM 03/09/16 [ History] Levothyroxine Sodium [Levoxyl] 200 mcg PO DAILY 03/09/16 [History] Lisinopril [Zestril] 20 mg PO DAILY 03/09/16 [History] Nystatin Cream [Mycostatin Cream] 1 appl TP BID 03/09/16 [History] Nystatin POWDER [Nystop] 1 appl TP BID 03/09/16 [History] Warfarin [Coumadin] 1.5 mg PO WETH 03/09/16 [History] Doxycycline 100 mg PO BID 5 Days 03/10/16 [Rx] LORazepam [Lorazepam] 0.5 mg PO BID PRN #10 tablet 03/10/16 [Rx] Levothyroxine [Synthroid] 175 mcg PO 0630 #5 tablet 03/10/16 [Rx] Simvastatin [Zocor] 20 mg PO HS #5 tablet 03/10/16 [Rx] Tramadol HCl [Ultram] 50 - 100 mg PO TID PRN #15 tablet 03/10/16 [Rx] Allergies/Adverse Reactions: Allergies codeine Allergy (Verified 03/02/16 10:31) Hives Penicillins [PCN] Allergy (Verified 03/02/16 10:31) Hives Procedures/tests Complete & Pending: Procedures Performed prior 72 hours Category Date Time Status EV ankle brachial index Stat Y 03/10/16 15:46 Completed Date of admission: 03/08/16 23:29 Primary care physician: Matheus Nagy Consults: 03/09/16 09:11 Consult to Occupational Therapy [CONS] Routine Comment: Evaluate, develop and implement POC Consult to Physical Therapy [CONS] Routine Comment: Evaluate, develop and implement POC 03/09/16 11:02 Consult to Wound Care [CONS] Routine Reason for Consult: multile wounds in left foot and right Call Completed: No Discharging clinician: Dimitri Napier Anticipated date of discharge: 03/10/16 - Patient Status Disposition: Home Health Service Condition: Fair Functional capacity at discharge: uses cane/walker (fall precaution, up with assistance) Overall status at discharge: patient is progressing back to baseline - Discharge Instructions Follow Up With: Hermes Page DO [Primary Care Provider] - (F/u in a week for hospital d/ c f/u) Patricio Olsen MD [Partnered Physician] - (Please set up an appointment to see vascular surgery for recent SRAVANTHI study showing severe arterial disease b/l) - Diet and Activity Activity: as per physical therapy, resume usual activities as tolerated Diet: diabetic diet, low fat, low cholesterol, low salt diet Hospital course: Ms. Olivia is a 75 year old female with hx of DM II who came to the ER with cc of left foot's diabetic wounds/ulcers blister broke open and it was weeping, admitted for cellulitis of left foot and multiple wounds, podiatry was consulted , bedtime debridement and cleansing was done by podiatry team, initially she was on levaquin IV, she states that she has chronic pain in her left foot, questionable lymphedema vs cellulitis, her leukocytosis improved, medically stable therefore she will be d/c to home today, pt refused to go to rehab but instead, she would like to have pt/ot coming at home as home health. SRAVANTHI was done and it showed severe arterial disease b/l, pt will see vascular surgery team as outpt. - Time Spent with Patient Total time spent providing and/or coordinating discharge services: - Constitutional Vitals: Temp Pulse Resp BP Pulse Ox 98.4 F 67 14 167/71 95 03/10/16 09:03 03/10/16 09:03 03/10/16 09:03 03/10/16 09:03 03/10/16 09:03 General appearance: Present: cooperative, A&O X 3, obese, answers questions appropriately - Head Head exam: Present: atraumatic, normocephalic - Eye Eye exam: Present: PERRL, conjuntiva pink, sclera anicteric Pupils: Present: PERRL - Neck Neck exam general surgery: Present: supple, trachea midline. Absent: lymphadenopathy - Respiratory Respiratory exam: Present: CTAB. Absent: accessory muscle use, rales, rhonchi, wheezes - Cardiovascular Cardiovascular exam: Present: RRR, +S1, +S2. Absent: diastolic murmur, gallop, rubs, systolic murmur - GI/Abdominal GI/Abdominal exam: Present: normal bowel sounds, soft, no peritoneal signs. Absent: distended, tenderness - Extremities Exam Extremities exam: Present: tenderness (left foot wounds, dressing on both feet) , warm, radial pulses palpable and symetrical. Absent: calf tenderness, cyanotic, pedal edema - Neurological Exam Neurological exam: Present: CN II-XII intact, oriented X3, no focal deficits. Absent: pronater drift, facial droop, speech deficit - Skin Skin exam: Present: dry, intact <Puneet Sims R - Last Filed: 03/10/16 16:39> Date of Encounter: 03/10/16 Procedures/tests Complete & Pending: Procedures Performed prior 72 hours Category Date Time Status EV ankle brachial index Stat Y 03/10/16 15:46 Completed Date of admission: 03/08/16 23:29 Primary care physician: Matheus Nagy Consults: 03/09/16 09:11 Consult to Occupational Therapy [CONS] Routine Comment: Evaluate, develop and implement POC Consult to Physical Therapy [CONS] Routine Comment: Evaluate, develop and implement POC 03/09/16 11:02 Consult to Wound Care [CONS] Routine Reason for Consult: multile wounds in left foot and right Call Completed: No Hospital course: Ms. Olivia is a 75 year old female - Time Spent with Patient Total time spent providing and/or coordinating discharge services: - Constitutional Vitals: Temp Pulse Resp BP Pulse Ox 98.1 F 56 14 134/68 93 L 03/10/16 15:40 03/10/16 15:40 03/10/16 15:40 03/10/16 15:40 03/10/16 15:40 - Attending Attestation I examined this patient and my medical decision-making was reviewed with the Resident Physician, Dr. Dimitri Napier. I agree with the documented findings, disposition and treatment plan as described except to the extent set forth below. Patient stable for discharge, follow up with vascular surgery as outpatient for PVD.
--- NOTE | 2016-03-10 15:16 | Podiatry Progress Note ---
Date of Encounter: 03/10/16 Time of Encounter: 12:00 - Assessment and Plan (1) Cellulitis of left lower extremity Current Visit: No Status: Acute Xray and CT scan complete- negative for osteomyelitis or abscess formation Clinical picture concurrent with CT appearance Continue current antibiotic therapy per internal med for treatment of cellulitis - Discharge with antibiotics per internal medicine recommendations (2) Diabetic ulcer of left heel Current Visit: No Status: Inactive Continue Maxsorb , 4x4 kerlex to medial wound Adaptic to lateral foot wound and 4x4 Kerlex and coban to surround Continue to treat medically for cellulitis Ok to discharge with outpatient vascular follow up for severe disease reported in prelim of SRAVANTHI PT/OT to evaluate for ECF placement Protective weight bearing with walker Please elevate and float heels off of bed for protection Will order prevalon boots Will follow up after discharge in wound care. - 1 week - please make appointment Send with post op shoe at discharge Subjective Interval history: Patient resting comfortably at this time. Dressings intact to LLE. Patient awaiting decision to ECF placement. PT/OT to evaluate today. Patient denies any fevers, chills, n/v, flu like symptoms or calf pain. Pain 5/10 to LLE. Nurse denies any changes to LLE wound overnight. Internal medicine at bedside, discussed plan. Objective - Vital Signs Vital Signs: Vital Signs Temp Pulse Resp BP Pulse Ox 03/10/16 12:10 98.1 F 62 12 152/62 93 L 03/10/16 09:03 98.4 F 67 14 167/71 95 03/10/16 04:18 98.4 F 60 16 130/68 96 03/10/16 00:03 98.6 F 57 16 136/68 93 L 03/09/16 20:09 98.8 F 67 16 124/61 93 L 03/09/16 16:01 98.8 F 64 16 135/64 94 L Intake and Output 03/09/16 03/10/16 03/10/16 23:59 07:59 15:59 Intake Total 220 / 220 340 / 340 Output Total 0 / 0 Balance 220 / 220 340 / 340 Intake: IV Fluids 100 / 100 100 / 100 Doxycycline 100 MG In 0.9 100 / 100 100 / 100 % Sodium Chloride (Mini- Bag +) 100 ML @ 100 mls/ hr IVPB Q12HR [facility] Rx#: [id number] Oral 120 / 120 240 / 240 Output: Urine 0 / 0 Other: Meal Dinner Breakfast Percent of Meal Consumed 50% 25% # Voids 1 1 Blood Glucose* 158 190 - Exam Exam: General Examination: CONSTITUTIONAL: Alert, oriented, in no acute distress, non-toxic. EXTREMITIES: CFT 3 seconds all toes. Edema +2 and pedal pulses faint SKIN: Skin with decreased turgor, decreased subcutaneous tissue, skin thin and shiny with trophic changes associated with comorbidities as described in history.. NEUROLOGIC: Loss of sensation to moderate touch LLE wound- Dressing intact- no changes reported per nurse. Mild erythema and edema remains- unchanged from 03/09 assessment - Lab Result Diagrams: 03/09/16 05:12 03/10/16 04:43 Labs: Abnormal lab results Hgb 9.8 g/dL (11.5-15.4) L 03/09/16 05:12 Hct 32.4 % (35.3-44.9) L 03/09/16 05:12 MCV 82.4 fL (83.0-100.0) L 03/09/16 05:12 MCH 24.9 pg (28.0-33.3) L 03/09/16 05:12 MCHC 30.2 g/dL (31.6-35.5) L 03/09/16 05:12 RDW 16.7 % (11.5-14.5) H 03/09/16 05:12 ESR >= 130 mm/hr (0-15) H 03/08/16 16:25 PT 33.2 Seconds (9.4-12.1) H 03/10/16 04:43 Sodium 135 mEq/L (136-145) L 03/10/16 04:43 Potassium 4.6 mEq/L (3.5-4.5) H 03/10/16 04:43 Chloride 97 mEq/L (98-109) L 03/10/16 04:43 BUN 30 mg/dL (7-20) H 03/10/16 04:43 Creatinine 2.42 mg/dL (0.57-1.11) H 03/10/16 04:43 Est GFR ( Amer) 24 (> 60) L 03/10/16 04:43 Est GFR (Non-Af Amer) 19 (> 60) L 03/10/16 04:43 Glucose 132 mg/dL (70-99) H 03/10/16 04:43 POC Glucose 190 (58-89) H 03/10/16 12:05 Consult Discharge Plan - Plan Referrals: Hermes Page DO [Primary Care Provider] - Prescriptions: Doxycycline 100 mg PO BID 5 Days LORazepam [Lorazepam] 0.5 mg PO BID PRN #10 tablet PRN Reason: Anxiety Levothyroxine [Synthroid] 175 mcg PO 0630 #5 tablet Simvastatin [Zocor] 20 mg PO HS #5 tablet Tramadol HCl [Ultram] 50 - 100 mg PO TID PRN #15 tablet PRN Reason: Pain
[2016-03-10 15:42] VITALS: BP 134/68
--- NOTE | 2016-03-10 15:56 | Physician Discharge Referral ---
Home Health/Hosp Referral Info Transfer to: Home Health Attending Provider: Dr. Sims Provider in Charge Post Discharge: PCP - Diagnosis (1) Cellulitis of left lower extremity Priority: Primary Status: Acute (2) Supratherapeutic INR Status: Acute (3) CKD (chronic kidney disease) stage 4, GFR 15-29 ml/min Status: Acute (4) Hypothyroidism Status: Acute (5) Diabetic ulcer of both feet Status: Acute (6) DVT prophylaxis Status: Acute - Respiratory Orders Oxygen / L per min (2) Smoking Cessation: Smoking cessation has been advised. For more information, call the [employer] Quit Line at 5-587-TTZJ-NOW. - Dressing/Wound Care Type of Dressing/Treatments w/Frequency: Cleansed wounds with saline Serous drainage to medial foot wound- Maxsorb applied, 4x4 Adaptic to lateral foot wound and 4x4 Kerlex and coban to surround 4x4 and kerlex applied to right venous ulcer Mepilex previous to right heel for protection - Diet/Nutrition Diet/Nutrition Orders: Renal, Cardiac - Activity Activity Orders: Walker (fall precaution, up with assistance) - Services Needed Following services are medically necessary services: Nursing, Home Health Aide, Physical Therapy, Occupational Therapy - Transfer Medications Prescriptions: Doxycycline 100 mg PO BID 5 Days LORazepam [Lorazepam] 0.5 mg PO BID PRN #10 tablet PRN Reason: Anxiety Levothyroxine [Synthroid] 175 mcg PO 0630 #5 tablet Simvastatin [Zocor] 20 mg PO HS #5 tablet Tramadol HCl [Ultram] 50 - 100 mg PO TID PRN #15 tablet PRN Reason: Pain Home Medications: Furosemide [Lasix] 40 mg PO BID 06/25/15 [History] Isosorbide DInitrate [Isochron] 30 mg PO DAILY 06/25/15 [History] Metoprolol Tartrate [Lopressor] 50 mg PO BID 06/25/15 [History] Mirtazapine [Remeron] 15 mg PO HS PRN 06/25/15 [History] Multivit-Min/FA/Lycopen/Lutein [A Thru Z Select Multivit Tab] 1 tab PO DAILY [History] Omeprazole [PriLOSEC] 20 mg PO DAILY 06/25/15 [History] Paricalcitol [Zemplar] 1 mcg PO DAILY 06/25/15 [History] Amlodipine [Norvasc] 5 mg PO DAILY 03/09/16 [History] Becaplermin [Regranex] 0.01 gm TP BID 03/09/16 [History] Gabapentin [Neurontin] 100 - 200 mg PO HS 03/09/16 [History] Insulin NPH Hum/Reg Insulin Hm [Humulin 70/30 Kwikpen] 25 unit SQ HS 03/09/16 [ History] Insulin NPH Hum/Reg Insulin Hm [Humulin 70/30 Kwikpen] 50 unit SQ QAM 03/09/16 [ History] Levothyroxine Sodium [Levoxyl] 200 mcg PO DAILY 03/09/16 [History] Lisinopril [Zestril] 20 mg PO DAILY 03/09/16 [History] Nystatin Cream [Mycostatin Cream] 1 appl TP BID 03/09/16 [History] Nystatin POWDER [Nystop] 1 appl TP BID 03/09/16 [History] Warfarin [Coumadin] 1.5 mg PO WETH 03/09/16 [History] Doxycycline 100 mg PO BID 5 Days 03/10/16 [Rx] LORazepam [Lorazepam] 0.5 mg PO BID PRN #10 tablet 03/10/16 [Rx] Levothyroxine [Synthroid] 175 mcg PO 0630 #5 tablet 03/10/16 [Rx] Simvastatin [Zocor] 20 mg PO HS #5 tablet 03/10/16 [Rx] Tramadol HCl [Ultram] 50 - 100 mg PO TID PRN #15 tablet 03/10/16 [Rx] Allergies/Adverse Reactions: Allergies codeine Allergy (Verified 03/02/16 10:31) Hives Penicillins [PCN] Allergy (Verified 03/02/16 10:31) Hives Certification: Further, I certify that my clinical findings support that this patient is homebound (i.e. absences from home require considerable and taxing effort and are for medical reasons or yazidism services or infrequently or short duration when for other reasons) because: she is having difficulty getting in/out of vehicle. Homebound Reason: Leaving home requires considerable and taxing effort due to condition Attestation: My signature below is to certify that this patient is under my care and that I, or nurse practitioner, or a physician's assistant baseball coach working with me, has a face-to -face encounter with this patient.
[2016-03-10] MEDS ORDERED: FLU VACC QS2016-17 36MOS UP/PF 0.5 ML SYRINGE IM ONE (17:29)
[2016-03-10] MEDS ORDERED: Warfarin perPT PO PRN (18:00)
[2016-03-10] MEDS ORDERED: *HR* Warfarin 3 MG TABLET PO ONE (18:00)
[2016-03-11] MEDS ORDERED: Levofloxacin 500 MG/100 ML 500 MG/100 ML BAG IVPB SCH (06:00)
--- NOTE | 2016-03-11 07:22 | Venous Imaging Report ---
LE Venous Duplex Patient Name:An Olivia Order Number:[id number] Procedure Date:03/09/2016 Date:1Age:75 yrs Gender:Female Location:[facility] Room #: 3A25 Spider Assembler:Renee Britt Referring MD:Kiesha Caballero DO relationship advisor:None Reading MD:eDacon Solorzano MD Primary Indications:History DVT LE LT, swelling Secondary Indications: Risk Factors Yes/No Anticoagulants Yes Hx of DVT Yes Impressions: Left lower extremity: normal superficial and deep exam. Findings Venous Duplex Results: Right: Venous imaging of the lower extremity reveals full patency and normal vessel compressibility of the right common femoral. Doppler signals in the evaluated veins were normal. Left: Venous imaging of the lower extremity reveals full patency and normal vessel compressibility of the left distal iliac, left common femoral, left superficial femoral, left popliteal, left posterior tibial, left peroneal, left great saphenous and left lesser saphenous. Doppler signals in the evaluated veins were normal. Lower Extremity Venous Duplex Side Vein Compress Spontaneous Flow Augment Diameter (cm) Depth (cm) Left Distal Iliac Normal Yes Phasic Yes Left Common Femoral Normal Yes Phasic Yes Left Superficial Femoral Normal Yes Phasic Yes Left Popliteal Normal Yes Phasic Yes Left Posterior Tibial Normal Yes Phasic Yes Left Peroneal Normal Yes Phasic Yes Left Great Saphenous Normal Yes Phasic Yes Left Lesser Saphenous Normal Yes Phasic Yes Right Common Femoral Normal Yes Phasic Yes Updated by Deacon Solorzano MD on 03/11/2016 7:17:16 AM electronically signed on 03/11/2016 7:17:27 AM with status of Final
--- NOTE | 2016-03-12 12:42 | Arterial Study Report ---
LE Arterial Physiologic Study Patient Name:An Olivia Order Number:[id number] Procedure Date:03/10/2016 Date:1940ge:75 yrs Gender:Female Lt BP:161 / mmHg Rt.BP:163 / mmHgHeart Rate: Location:[facility] Room #: 3A25 Programmer:Phan Head, RDLAURA Referring MD:Vanesa [place] [employer] CLERK strainer tender:Hermes Page DO Reading MD:Deacon Solorzano MD Primary Indications:Diminished pulses, bilateral ulcers Risk Factors Yes/No Hypertension Yes Diabetes Yes Hypercholesterolemia Yes Anticoagulants Yes Impressions: Bilateral severe disease by Index and waveform Recommendations: After imaging the patient returned to their room. Pt unable to withstand more cuff pressure d/t pain tolerance. Findings LE Arterial Physiologic Exam: Segmental Pressures: Right: The right posterior tibial pressure is 69 mmHg with an index of 0.42. Left: The left dorsalis pedis pressure is 53 mmHg with an index of 0.33. PVR: Right: The PVR waveforms are severely diminished in the right ankle. Left: The PVR waveforms are severely diminished in the left ankle. Prior Study: No prior study available for comparison. Segmental Pressures Side Location Pressure Index Result Right Posterior Tibial 69 0.42 Right Dorsalis Pedis noncompressible Left Posterior Tibial noncompressible Left Dorsalis Pedis 53 0.33 Ankle Brachial Index Right Systolic Diastolic SRAVANTHI Brachial 163 0.42 Posterior Tibial 69 0.42 Left Systolic Diastolic SRAVANTHI Brachial 161 0.33 Dorsalis Pedis 53 0.33 Updated by Deacon Solorzano MD on 03/12/2016 12:36:52 PM with Status of Final electronically signed on 03/12/2016 12:37:03 PM with status of Final
== END 2016-03-10 21:00 | disposition home health service (06) | DRG 603 ==
LOC: EMEROO 14:50 → 3ANU 14:50
PROVIDERS: ADMIT Internal Medicine; ATTEND Internal Medicine

== ENCOUNTER 2016-04-19 22:10 | Inpatient (IN) ==
[2016-04-20] MEDS ORDERED: Nitroglycerin 0.4 MG TAB.SUBL SL PRN ×2 (00:15→00:33)
[2016-04-20] MEDS ORDERED: Naloxone 0.4 MG/ML INJ IVP PRN (00:15)
[2016-04-20] MEDS ORDERED: *HR* Metoprolol 5 MG/5 ML VIAL IVP PRN (00:15)
[2016-04-20] MEDS ORDERED: 0.9 % Sodium Chloride 1,000 ML IVC SCH ×2 (00:15→04:21)
[2016-04-20] MEDS ORDERED: *HR* Heparin 5,000 UNIT/ML VIAL IVP ONE (00:26)
[2016-04-20] MEDS ORDERED: *HR* Heparin 5,000 UNIT/ML VIAL IVP PRN ×2 (00:26)
[2016-04-20] MEDS ORDERED: Heparin 25,000 UNIT/500 ML D5W 25,000 UNIT/500 ML MLS IVC SCH (00:30)
[2016-04-20] MEDS ORDERED: traMADol 50 MG TABLET PO PRN (00:33)
[2016-04-20 01:49] LABS: INR 2.7; Prothrombin Time 30.2 Seconds (9.4-12.1)
[2016-04-20 01:53] LABS: Basophils # 0.1 K/mcL (0.0-0.2); Basophils % 0.6 %; Eosinophils % 0.3 %; Hematocrit 35.4 % (35.3-44.9); Hemoglobin 10.3 g/dL (11.5-15.4); Immature Granulocytes % 0.4 % (0-4); Lymphocytes # 0.4 K/mcL (0.6-4.6); Mean Corpuscular HGB Conc 29.1 g/dL (31.6-35.5); Mean Corpuscular Hemoglobin 24.3 pg (28.0-33.3); Mean Corpuscular Volume 83.5 fL (83.0-100.0); Mean Platelet Volume 11.2 fL (9.4-12.4); Monocytes # 0.6 K/mcL (0.0-1.3); Monocytes % 8.1 %; Neutrophils # 6.8 K/mcL (1.6-8.9); Platelet Count 137 K/mcL (140-400); Red Blood Count 4.24 M/mcL (3.82-4.97); Red Cell Distribution Width 20.5 % (11.5-14.5); Segmented Neutrophils % 85.6 %
[2016-04-20 02:01] LABS: Albumin 2.1 g/dL (3.5-5.0); Albumin/Globulin Ratio 0.5 (1.1-2.2); Bilirubin,Total 0.7 mg/dL (0.2-1.2); Calcium 8.9 mg/dL (8.6-10.8); Chol/HDL Ratio 3.4 (0-4.9); Globulin 3.9 g/dL (2.4-3.5); Magnesium 1.5 mg/dL (1.6-2.6); Phosphorous 3.8 mg/dL (2.3-4.7); Potassium 3.9 mEq/L (3.5-4.5)
[2016-04-20 02:19] LABS: Hemoglobin A1C 6.2 %
[2016-04-20 02:40] LABS: Thyroid Stimulating Hormone 2.463 mcIU/mL (0.350-4.840)
[2016-04-20 03:08] LABS: Activated Partial Thrombo Time 245.2 Seconds (26.0-36.0)
[2016-04-20 03:12] LABS: Heparin anti-factor XA UFH 0.61 IU/mL (0.30-0.70)
[2016-04-20] MEDS ORDERED: D5% in Water 1,000 ML IV PRN (04:16)
[2016-04-20] MEDS ORDERED: *HR* Dextrose 50 % in Water (Syg) 50 ML SYRINGE IVP PRN (04:16)
[2016-04-20] MEDS ORDERED: Dextrose Gel 15 GM PO PRN ×2 (04:16)
[2016-04-20] MEDS ORDERED: Magnesium Sulfate 2 GM in D5% in Water 100 ML IVPB ONE (04:21)
--- NOTE | 2016-04-20 04:37 | Internal Med History&Physical ---
Date of Encounter: 04/20/16 Time of Encounter: 01:00 Assessment and Plan (1) Toxic metabolic encephalopathy Status: Acute . (2) Delirium due to conditions classified elsewhere Status: Acute . (3) UTI (urinary tract infection), bacterial Status: Acute . (4) Cellulitis of both lower extremities Status: Acute . (5) Diabetic foot ulcer associated with type 2 diabetes mellitus, with fat layer exposed Status: Chronic . Qualifiers: Diabetic foot ulcer location: unspecified part of foot Laterality: left Qualified Code(s): E11.621 - Type 2 diabetes mellitus with foot ulcer; L97.522 - Non-pressure chronic ulcer of other part of left foot with fat layer exposed (6) Diabetic foot infection Status: Chronic . (7) Microcytic hypochromic anemia Status: Chronic . (8) Non-ST elevation myocardial infarction (NSTEMI) due to mismatch of myocardial oxygen supply and demand Status: Acute . (9) Ischemic cardiomyopathy Status: Chronic . (10) Acute on chronic respiratory failure with hypoxia and hypercapnia Status: Acute . (11) Demand ischemia of myocardium Status: Chronic . (12) Ischemia due to increased oxygen demand Status: Chronic . (13) Elevated troponin I measurement Status: Chronic . (14) Diabetic nephropathy with proteinuria Status: Chronic . (15) CKD (chronic kidney disease) stage 4, GFR 15-29 ml/min Status: Chronic . (16) Congestive heart failure Status: Chronic . Qualifiers: Congestive heart failure type: combined Congestive heart failure chronicity : acute on chronic Qualified Code(s): I50.43 - Acute on chronic combined systolic (congestive) and diastolic (congestive) heart failure (17) DM2 (diabetes mellitus, type 2) Status: Chronic . Qualifiers: Diabetes mellitus complication status: with kidney complications Diabetes mellitus complication detail: with chronic kidney disease Diabetes mellitus skilled nursing insulin use: without skilled nursing use Chronic kidney disease stage: stage 3 (moderate) Qualified Code(s): E11.22 - Type 2 diabetes mellitus with diabetic chronic kidney disease; N18.3 - Chronic kidney disease, stage 3 ( moderate) (18) Hyperlipidemia Status: Chronic . Qualifiers: Hyperlipidemia type: unspecified Qualified Code(s): E78.5 - Hyperlipidemia , unspecified (19) Hypertension Status: Chronic . Qualifiers: Hypertension type: unspecified secondary hypertension Qualified Code(s): I15.9 - Secondary hypertension, unspecified; I15 - Secondary hypertension (20) Hypothyroidism Status: Chronic . Qualifiers: Hypothyroidism type: unspecified Qualified Code(s): E03.9 - Hypothyroidism , unspecified (21) Peripheral vascular disease Status: Chronic . (22) Acute metabolic encephalopathy due to hypoglycemia Status: Acute . Internal Medicine - H&P: HPI Chief complaint: Confusion. Lethargy. Admitted From: Hospital [facility] Plans for Post Hospital Care: Home History of present illness: Ms. Olivia is a 75 year old female [place] resident with history significant of hypertension, dyslipidemia, GERD, CKD III, type II DM, DM nephropathy with proteinuria, DM periph neuropathy, h/o LLE DVT (chr warfarin tx), DM foot infection/ulceration, CAD/AMIx2, PAD/L-CEA/LLE fem art stent, osteoarthritis, osteoporosis, morbid obesity/deconditioning, former smoker The patient was visited and interviewed and examined. The patient was received as a hospital transfer to [facility] from [facility] ED by EMS services from longterm with a complaint of acute alteration in mental status associated with spiking fever, confusion and lethargy with precipitous decline in patient's completion of activityies of daily living dependently. Patient found prior to transfer present UTI and demand ischemia myocardium with associated non-ST elevation myocardial infarction. Metabolic electrolyte derangements were also associated symptoms were described as waxing and waning in severity. Associated with fever or generalized weakness and foul-smelling urine. There was no report from the longterm of any knowledge chest pain of her lower respiratory complaints chills sweats headache and loss of appetite abdominal pain nausea vomiting diarrhea urinary incontinence witnessed seizure or syncope or focal neurologic deficit. Findings in the ED: Temperature 99.9 pulse 65 respirations 16 BP 138/42 O2 saturation 99% arterial blood gas pH 7.45 PCO2 52 PO2 107 bicarbonate 35.9 O2 saturation 99% 2 L per nasal cannula. APTT 40.1. Urinalysis large protein and trace ketones moderate blood and moderate bilirubin and small esterase. 15 RBC. 50 WBC. Few squamous epithelial cells. Many bacteria. Few yeast. WBC 7.5 hemoglobin 10.6. Platelets 152,000. Differential normal. PT 28.4 INR 2.6. Ammonia 28. Lactic acid 1.1. Metabolic panel noted BUN 26 creatinine 2.11. GFR 23. Glucose 39. Osmolality 301. Troponin 2.25. Hepatic function satisfactory. Albumin 2.3 total 6.1. TSH 3.17. Lipase 7. BNP 2871. Digoxin 1.6. Chest x-ray demonstrated small bilateral pleural effusions. Mild pulmonary vascular congestion. No pneumothorax. Cardiomediastinal silhouette stable. No acute osseous abnormalities. Cumulative laboratory and radiographic database was reviewed, considered and discussed. Pertinent ancillary medical records including ECW and PCI documentation was reviewed and considered. Given the patient's presenting concerns, past medical history, clinical findings and symptoms, she is admitted at this time will undergo further evaluation and disposition. Orders were written as per the computerized physician enrobing machine corder system.......................................................................... .................... Consultative opinions will be sought as clinical circumstances justify. Pain management needs will be addressed. Laboratory and radiographic data base will be updated as appropriate. Studies include: Cultures blood urine sputum, CPK, prolactin, pt/inr, aptt, cardiac injury panel, BNP,ammonia, metabolic and hematologic panel, magnesium, phosphorus, ionized calcium, thyroid panel, lipid profile, A1c, C-peptide, CRP, sed rate, respiratory infection profile, respiratory virus panel, UA, UDS, blood gas, lactic acid, serologies, etc. Precautions: Aspiration, fall, delirium protocol/surveillance initiated. Telemetry with continuous hemodynamic monitoring and pulse oximetry initiated. Orthostatic vital signs. Empiric antibioticcoverage: Intravenous vancomycin and Invanz pending culture data. Special studies: CT chest, CT head, CT b/l LEs, chest x-ray, telemetry, EKG, echocardiogram. Pulmonary toilet: Incentive spirometry, aerosol bronchodilator, mucolytic, antitussive, supplemental oxygen. Corticosteroid therapyPRN. CPAP/BiPAP supplemental oxygen deliveryPRN. Aerosol Mucomyst therapyPRN. Fluid and electrolyte repletion efforts will proceed. Careful attention to fluid balance and renal recovery will be emphasized. Avoidance of nephrotoxic exposure and adverse drug drug interaction in the setting of impaired renal function will be monitored closely. Acute coronary syndrome protocol/surveillance initiated. Aspirin, statin, beta cely. PRN nitrates, morphine. Supplemental oxygen. JODEE inhibitor/ARB w/ held due to LINDA. Reinstate when status permits. Intravenous heparin drip (low dose) ACS protocol. Acute heart failure protocol/surveillance initiated. DVT and PUD prophylaxis initiated: PPI therapy, intermittent pneumatic cuffs. Early ambulation will be encouraged. Immunization updates recommended. Influenza and pneumococcal vaccinations as part of ongoing preventative healthcare recommendations strongly recommended. Smoking cessation counseling will be addressed patient's status permits. . Patient is reported to be a former smoker. Advanced care directive discussion will be addressed. Patient does possess any declared healthcare restrictions at this time. Cardiovascular risk appraisal and cardiovascular risk reduction efforts will be emphasized. Physical /occupational therapy may be asked to evaluate patient's functional capacity and progress mobility if her circumstances justify. Sliding scale insulin coverage, ADA dietary restraint and schedule an as-needed basis fingerstick glucose assessments were initiated. Nutrition/diabetes education counseling may be considered as circumstances justify. Outpatient medication schedules will be reviewed, confirmed and facilitated as appropriate. Reconciliation of home treatments including adjustments, substitutions and reintroduction into the treatment regimen as necessary maintenance therapies for chronic pre-existing medical conditions. Plan of care has been reviewed and discussed in with the patient's attending staff. Questions addressed. Hospital course dictated by clinical findings, treatment response and potential consultative interventions. Patient is at risk for further acute clinical declineand morbidity due to her advanced age, presenting chief complaints and comorbid conditions. Condition is serious. Prognosis is guarded. CODE STATUS is reported as full. Past Med Surg Social Fam HX - Past Medical History Medical history: arthritis (Cervical spine osteomyelitis 2010. Chronic low back pain. Amputation left great toe. Left lateral foot diabetic ulcer.), asthma, cardiomyopathy (LVEF A-35% 2011 echo. Mild MR. Grade 1 diastolic dysfunction.), CHF, COPD, coronary artery disease (Heart catheterization 2010 demonstrated mild LMCA disease 15% stenosis LAD 60% stenosis in midportion 60-70 % stenosis and proximal to mid left circumflex. Proximal RCA occluded. Collaterals from first obtuse marginal to the distal right posterolateral artery. LVEF 45-50%.), DVT (Left leg DVT. Chronic Coumadin therapy.), diabetes (Right eye blindness.), GERD, GI bleed (hemorrhoids.), hyperlipidemia, hypertension, myocardial infarction (x2), osteoporosis, peripheral artery disease (Left carotid artery endarterectomy. Left leg femoral artery stent.), renal disease, thyroid disease, venous stasis, other (Psoriatic arthritis. Psoriasis. Diabetic peripheral neuropathy.) Psychiatric history: anxiety, depression - Past Surgical History Surgical History: carotid endarterectomy, cataract (Bilateral cataracts.), cholecystectomy, orthopedic, other, other (Left great toe amputation 2009.), vascular surgery, LE stent (s) - Social History Smoking Status: Former smoker Packs per day: 1ppd x44yrs Smokeless Tobacco Status: No Alcohol use: none Drug use: none Occupational status: retired Current living situation: With Family Activity Level: Mostly sedentary Recent Out of Country Travel Within the Last 8 Weeks: No Exposure or Possible Exposure to Illness During Travel: No - Family History Son Adopted: [place]: MELBA Age: 32 Family Member Ethnicity: Non- Living Status: Age at : 32 Cause of : CHF Hx Family Cardiac Disorders: Yes Hx Family Respiratory Disorders: No Hx Family Cancer: Yes (MOTHER, GRANDDAUGHTERS X 2) Hx Family GI Disorders: No Hx Family Genitourinary Disorders: Yes Hx Family Endocrine Disorder: Yes Hx Family Musculoskeletal Disorders: No Hx Family Neuromuscular Disorders: No Hx Family Neurologic Disorders: No Hx Family HEENT Disorders: No Hx Family Autoimmune Disorders: Yes Hx Family Reproductive Disorders: No Hx Family Psychosocial Disorders: Yes Hx Family Medical Disorders: Yes Mother Family Member Ethnicity: Non- Living Status: Hx Family Cardiac Disorders: No Hx Family Respiratory Disorders: No Hx Family Cancer: Yes Hx Family GI Disorders: No Hx Family Endocrine Disorder: No Hx Family Neuromuscular Disorders: No Hx Family Neurologic Disorders: No Hx Family HEENT Disorders: No Hx Family Autoimmune Disorders: No Internal Medicine - H&P: Meds Furosemide [Lasix] 40 mg PO BID 06/25/15 [History] Metoprolol Tartrate [Lopressor] 50 mg PO BID 06/25/15 [History] Multivit-Min/FA/Lycopen/Lutein [A Thru Z Select Multivit Tab] 1 tab PO DAILY [History] Omeprazole [PriLOSEC] 20 mg PO DAILY 06/25/15 [History] Paricalcitol [Zemplar] 1 mcg PO DAILY 06/25/15 [History] Amlodipine [Norvasc] 5 mg PO DAILY 03/09/16 [History] Gabapentin [Neurontin] 100 mg PO HS 03/09/16 [History] Insulin NPH Hum/Reg Insulin Hm [Humulin 70/30 Kwikpen] 28 unit SQ HS 03/09/16 [ History] Insulin NPH Hum/Reg Insulin Hm [Humulin 70/30 Kwikpen] 30 unit SQ QAM 03/09/16 [ History] Levothyroxine Sodium [Levoxyl] 200 mcg PO DAILY 03/09/16 [History] Warfarin [Coumadin] 1.5 mg PO QPM 03/09/16 [History] Mirtazapine [Remeron] 15 mg PO HS 03/30/16 [History] HYDROcodone/Acet 5/325 mg [Zuni 5-325 mg] 1 tab PO Q8H PRN 04/01/16 [History] Digoxin [Lanoxin] 0.125 mg PO DAILY #30 tablet 04/02/16 [Rx] Isosorbide MONOnitrate (24 HR) [Imdur] 60 mg PO DAILY #30 tab.er.24h 04/02/16 [ Rx] Acetaminophen [Tylenol] 650 mg PO Q6HR PRN #0 tablet 04/29/16 [Rx] Docusate [Colace] 100 mg PO BID PRN #0 capsule 04/29/16 [Rx] Insulin LISPRO [HumaLOG] 0 units SQ HS vial 04/29/16 [Rx] Insulin LISPRO [HumaLOG] 0 units SQ TIDAC vial 04/29/16 [Rx] LORazepam [Ativan] 0.5 mg PO Q4HR PRN #10 tablet 04/29/16 [Rx] LORazepam [Lorazepam] 0.5 mg PO BID PRN #10 tablet 04/29/16 [Rx] OxyCODONE Oral Soln [OxyCODONE ORAL SOLN] 5 mg PO Q3H PRN #1 mls 04/29/16 [Rx] Quetiapine Fumarate [Seroquel] 12.5 mg PO HS tablet 04/29/16 [Rx] Allergies codeine Allergy (Verified 03/02/16 10:31) Hives Penicillins [PCN] Allergy (Verified 03/02/16 10:31) Hives ROS unobtainable: due to mental status All Systems PM: A 10-system review of systems was performed and is negative for pertinent findings except as documented above in the HPI. Patient presents status unknown historian of current circumstances of events due to her current illness and associated delirium. Details collected from the medical records, staff elicited the comments and ER/EMS triage. - Constitutional Constitutional: as per HPI - EENT Eyes: as per HPI Ears: as per HPI Nose, mouth and throat: as per HPI - Cardiovascular Cardiovascular ROS IM: as per HPI - Respiratory Respiratory: as per HPI - Gastrointestinal Gastrointestinal: as per HPI - Genitourinary Genitourinary: as per HPI - Musculoskeletal Musculoskeletal ROS IM: as per HPI - Integumentary Integumentary IM: as per HPI - Neurological Neurological ROS: as per HPI - Psychiatric Psychiatric: as per HPI - Endocrine Endocrine IM: as per HPI - Hematologic/Lymphatic Hematologic/Lymphatic: as per HPI - Allergic/Immunologic Allergic/Immunologic: as per HPI - Constitutional Vitals: Temp Pulse Resp BP Pulse Ox 97.8 F 77 19 177/69 100 04/20/16 03:49 04/20/16 03:49 04/20/16 03:49 04/20/16 03:49 04/20/16 03:49 General appearance: Present: A&O X 0, disheveled, morbidly obese. Absent: cooperative, answers questions appropriately Exam: Lethargic. Stuporous. Arousable only to noxious stimuli. - Head Head exam: Present: atraumatic, normocephalic - Eye Eye exam: Present: EOMI, PERRL, conjuntiva pink, sclera anicteric Pupils: Present: normal accommodation, PERRL - ENT ENT exam: Present: mucous membranes dry, normal external ear exam, normal oropharynx - Neck Neck exam general surgery: Present: full ROM, supple, trachea midline. Absent: lymphadenopathy - Respiratory Respiratory exam: Present: decreased breath sounds, CTAB, rales. Absent: accessory muscle use, rhonchi, wheezes - Cardiovascular Cardiovascular exam: Present: distant heart sounds, RRR, +S1, +S2. Absent: diastolic murmur, gallop, rubs, systolic murmur - GI/Abdominal GI/Abdominal exam: Present: diminished bowel sounds, distended, soft, no peritoneal signs. Absent: tenderness - Extremities Exam Extremities exam: Present: tenderness (Tenderness of both lower extremities), warm, radial pulses palpable and symetrical. Absent: calf tenderness, cyanotic , pedal edema - Expanded Lower Extremities Exam Lower Leg exam: Present: erythema, swelling, tenderness Ankle exam: Present: swelling, tenderness. Absent: normal inspection Foot/Toe exam: Present: amputation, deformity, erythema, swelling, tenderness Gait: Present: not tested/not observed - Neurological Exam Neurological exam: Present: alert, altered, CN II-XII intact, motor sensory deficit, oriented X3. Absent: pronater drift, facial droop, speech deficit - Psychiatric Psychiatric exam: Present: flat affect - Skin Skin exam: Present: abrasion, dry, erythema, excoriation, intact, rash, warm - Expanded Skin Exam Distribution of rash: Present: RLE, LLE Description of rash: Present: crusting, erythematous, macular, purpura, swelling , tenderness Internal Med - H&P Results - Labs CBC & Chem 7: 04/29/16 04:40 04/29/16 04:40 Labs: Short CBC 04/20/16 Range/Units 01:31 WBC 8.0 (4.3-11.1) K/mcL Hgb 10.3 L (11.5-15.4) g/dL Hct 35.4 (35.3-44.9) % Plt Count 137 L (140-400) K/mcL Neutrophils # 6.8 (1.6-8.9) K/mcL BMP 04/20/16 01:31 Sodium 143 Potassium 3.9 Chloride 103 Carbon Dioxide 32 H BUN 27 H Creatinine 2.24 H Glucose 95 Calcium 8.9 Cardiac Enzymes 04/20/16 Range/Units 01:31 Troponin I 2.24 H* (0-0.03) ng/mL Liver Function 04/20/16 Range/Units 01:31 Total Bilirubin 0.7 (0.2-1.2) mg/dL AST 23 (5-34) Units/L ALT 12 (0-55) Units/L Alkaline Phosphatase 101 (38-126) Units/L Albumin 2.1 L (3.5-5.0) g/dL Vital Signs Temp Pulse Resp BP Pulse Ox 04/20/16 03:49 97.8 F 77 19 177/69 100 04/20/16 00:02 98.8 F 53 16 125/60 93 L 04/19/16 23:58 97 Intake and Output 04/19/16 04/19/16 04/20/16 15:59 23:59 07:59 Intake Total 80 / 80 Balance 80 / 80 Intake: IV Fluids 80 / 80 Heparin 25,000 UNIT/500 80 / 80 ML D5W 25,000 unit In 500 ml @ 11.6 UNIT/KG/HR 19. 889 mls/hr IVC .Q24H ENE Rx#:[id number] Other: Weight 85.729 kg Patient Weight 04/20/16 23:59 Weight 85.729 kg Allergies codeine Allergy (Verified 03/02/16 10:31) Hives Penicillins [PCN] Allergy (Verified 03/02/16 10:31) Hives - Impressions ITS Impressions Head CT 04/20/16 03:48 IMPRESSION: No acute intracranial abnormality. D/ / Mike Fox MD / Mike Fox MD Interpreting Provider: Mike Fox MD Abnormal lab results Hgb 10.3 g/dL (11.5-15.4) L 04/20/16 01:31 MCH 24.3 pg (28.0-33.3) L 04/20/16 01:31 MCHC 29.1 g/dL (31.6-35.5) L 04/20/16 01:31 RDW 20.5 % (11.5-14.5) H 04/20/16 01:31 Plt Count 137 K/mcL (140-400) L 04/20/16 01:31 Lymphocytes # 0.4 K/mcL (0.6-4.6) L 04/20/16 01:31 PT 30.2 Seconds (9.4-12.1) H 04/20/16 01:31 APTT 245.2 Seconds (26.0-36.0) H* D 04/20/16 02:34 Carbon Dioxide 32 mEq/L (19-29) H 04/20/16 01:31 BUN 27 mg/dL (7-20) H 04/20/16 01:31 Creatinine 2.24 mg/dL (0.57-1.11) H 04/20/16 01:31 Est GFR ( Amer) 26 (> 60) L 04/20/16 01:31 Est GFR (Non-Af Amer) 21 (> 60) L 04/20/16 01:31 Hemoglobin A1c 6.2 % (-5.6) H 04/20/16 01:31 Calculated Osmolality 301 (280-300) H 04/20/16 01:31 Magnesium 1.5 mg/dL (1.6-2.6) L 04/20/16 01:31 Troponin I 2.24 ng/mL (0-0.03) H* 04/20/16 01:31 B-Natriuretic Peptide 2623 pg/mL (0-100) H 04/20/16 01:31 Albumin 2.1 g/dL (3.5-5.0) L 04/20/16 01:31 Globulin 3.9 g/dL (2.4-3.5) H 04/20/16 01:31 Albumin/Globulin Ratio 0.5 (1.1-2.2) L 04/20/16 01:31 HDL Cholesterol 31 mg/dL (40-59) L 04/20/16 01:31 Laboratory Last Values WBC 8.0 K/mcL (4.3-11.1) 04/20/16 01:31 RBC 4.24 M/mcL (3.82-4.97) 04/20/16 01:31 Hgb 10.3 g/dL (11.5-15.4) L 04/20/16 01:31 Hct 35.4 % (35.3-44.9) 04/20/16 01:31 MCV 83.5 fL (83.0-100.0) 04/20/16 01:31 MCH 24.3 pg (28.0-33.3) L 04/20/16 01:31 MCHC 29.1 g/dL (31.6-35.5) L 04/20/16 01:31 RDW 20.5 % (11.5-14.5) H 04/20/16 01:31 Plt Count 137 K/mcL (140-400) L 04/20/16 01:31 MPV 11.2 fL (9.4-12.4) 04/20/16 01:31 Immature Gran % 0.4 % (0-4) 04/20/16 01:31 Seg Neutrophils % 85.6 % 04/20/16 01:31 Lymphocytes % 5.0 % 04/20/16 01:31 Monocytes % 8.1 % 04/20/16 01:31 Eosinophils % 0.3 % 04/20/16 01:31 Basophils % 0.6 % 04/20/16 01:31 Neutrophils # 6.8 K/mcL (1.6-8.9) 04/20/16 01:31 Lymphocytes # 0.4 K/mcL (0.6-4.6) L 04/20/16 01:31 Monocytes # 0.6 K/mcL (0.0-1.3) 04/20/16 01:31 Eosinophils # 0.0 K/mcL (0.0-0.6) 04/20/16 01:31 Basophils # 0.1 K/mcL (0.0-0.2) 04/20/16 01:31 PT 30.2 Seconds (9.4-12.1) H 04/20/16 01:31 INR 2.7 04/20/16 01:31 APTT 245.2 Seconds (26.0-36.0) H* D 04/20/16 02:34 Heparin Anti-Xa, Unfract 0.61 IU/mL (0.30-0.70) 04/20/16 02:34 Sodium 143 mEq/L (136-145) 04/20/16 01:31 Potassium 3.9 mEq/L (3.5-4.5) 04/20/16 01:31 Chloride 103 mEq/L (98-109) 04/20/16 01:31 Carbon Dioxide 32 mEq/L (19-29) H 04/20/16 01:31 BUN 27 mg/dL (7-20) H 04/20/16 01:31 Creatinine 2.24 mg/dL (0.57-1.11) H 04/20/16 01:31 Est GFR ( Amer) 26 (> 60) L 04/20/16 01:31 Est GFR (Non-Af Amer) 21 (> 60) L 04/20/16 01:31 BUN/Creatinine Ratio 12 (6-26) 04/20/16 01:31 Glucose 95 mg/dL (70-99) 04/20/16 01:31 Est Mean Plasma Glucose 131 mg/dl 04/20/16 01:31 Hemoglobin A1c 6.2 % (-5.6) H 04/20/16 01:31 Calculated Osmolality 301 (280-300) H 04/20/16 01:31 Calcium 8.9 mg/dL (8.6-10.8) 04/20/16 01:31 Phosphorus 3.8 mg/dL (2.3-4.7) 04/20/16 01:31 Magnesium 1.5 mg/dL (1.6-2.6) L 04/20/16 01:31 Total Bilirubin 0.7 mg/dL (0.2-1.2) 04/20/16 01:31 AST 23 Units/L (5-34) 04/20/16 01:31 ALT 12 Units/L (0-55) 04/20/16 01:31 Alkaline Phosphatase 101 Units/L (38-126) 04/20/16 01:31 Troponin I 2.24 ng/mL (0-0.03) H* 04/20/16 01:31 B-Natriuretic Peptide 2623 pg/mL (0-100) H 04/20/16 01:31 Serum Total Protein 6.0 g/dL (6.0-8.3) 04/20/16 01:31 Albumin 2.1 g/dL (3.5-5.0) L 04/20/16 01:31 Globulin 3.9 g/dL (2.4-3.5) H 04/20/16 01:31 Albumin/Globulin Ratio 0.5 (1.1-2.2) L 04/20/16 01:31 Triglycerides 81 mg/dL (< 150) 04/20/16 01:31 Cholesterol 105 mg/dL (< 200) 04/20/16 01:31 LDL Cholesterol, Calc 58 mg/dL (0-99) 04/20/16 01:31 VLDL Cholesterol, Calc 16 mg/dL (< 31) 04/20/16 01:31 HDL Cholesterol 31 mg/dL (40-59) L 04/20/16 01:31 Cholesterol/HDL Ratio 3.4 (0-4.9) 04/20/16 01:31 TSH 2.463 mcIU/mL (0.350-4.840) 04/20/16 01:31 - Attending Attestation Allergies codeine Allergy (Verified 03/02/16 10:31) Hives Penicillins [PCN] Allergy (Verified 03/02/16 10:31) Hives Home Medications Medication Instructions Recorded Confirmed Type Furosemide [Lasix] 40 mg PO BID 06/25/15 04/20/16 History Metoprolol Tartrate [Lopressor] 50 mg PO BID 06/25/15 04/20/16 History Multivit-Min/FA/Lycopen/Lutein [A 1 tab PO DAILY 06/25/15 04/20/16 History Thru Z Select Multivit Tab] Omeprazole [PriLOSEC] 20 mg PO DAILY 06/25/15 04/20/16 History Paricalcitol [Zemplar] 1 mcg PO DAILY 06/25/15 04/20/16 History Amlodipine [Norvasc] 5 mg PO DAILY 03/09/16 04/20/16 History Gabapentin [Neurontin] 100 mg PO HS 03/09/16 04/20/16 History Insulin NPH Hum/Reg Insulin Hm 28 unit SQ HS 03/09/16 04/20/16 History [Humulin 70/30 Kwikpen] Insulin NPH Hum/Reg Insulin Hm 30 unit SQ QA 03/09/16 04/20/16 History [Humulin 70/30 Kwikpen] Levothyroxine Sodium [Levoxyl] 200 mcg PO DAILY 03/09/16 04/20/16 History Warfarin [Coumadin] 1.5 mg PO QPM 03/09/16 04/20/16 History Mirtazapine [Remeron] 15 mg PO HS 03/30/16 04/20/16 History HYDROcodone/Acet 5/325 mg [Zuni 1 tab PO Q8H PRN 04/01/16 04/20/16 History 5-325 mg] Prescriptions Medication Instructions Recorded Type Acetaminophen [Tylenol] 650 mg PO Q6HR PRN #0 tablet 04/29/16 Rx Docusate [Colace] 100 mg PO BID PRN #0 capsule 04/29/16 Rx Insulin LISPRO [HumaLOG] 0 units SQ HS vial 04/29/16 Rx Insulin LISPRO [HumaLOG] 0 units SQ TIDAC vial 04/29/16 Rx LORazepam [Ativan] 0.5 mg PO Q4HR PRN #10 tablet 04/29/16 Rx LORazepam [Lorazepam] 0.5 mg PO BID PRN #10 tablet 04/29/16 Rx OxyCODONE Oral Soln [OxyCODONE 5 mg PO Q3H PRN #1 mls 04/29/16 Rx ORAL SOLN] Quetiapine Fumarate [Seroquel] 12.5 mg PO HS tablet 04/29/16 Rx Medications Discontinued Medications Acetaminophen (Tylenol) 650 mg PO Q6HR PRN PRN Reason: Mild Pain (1-3) Stop: 10/20/16 00:16 Last Admin: 04/22/16 08:23 Dose: 650 mg Re-Assess: [facility] Pain Assessment Document 04/22/16 09:08 LJS (Rec: 04/22/16 09:18 [id number]) Patient's Stated Pain Level Pain Intensity 0 Acetaminophen (Tylenol 650mg Supp) 650 mg RC Q6HR PRN PRN Reason: Fever Stop: 10/21/16 06:41 Last Admin: 04/21/16 10:14 Dose: 650 mg Acetaminophen (Tylenol) 650 mg PO Q6HR PRN PRN Reason: Mild Pain (1-3) Stop: 10/20/16 00:16 Acetaminophen (Tylenol 650mg Supp) 650 mg RC Q6HR PRN PRN Reason: Fever Stop: 10/21/16 06:41 Albuterol Sulfate (Proventil Neb) 2.5 mg IH ONCE ONE PRN Reason: Protocol Stop: 04/24/16 08:02 Last Admin: 04/24/16 08:43 Dose: Not Given Non-Admin Reason: Not In Room Amlodipine Besylate (Norvasc) 5 mg PO DAILY ENE PRN Reason: Protocol Stop: 10/20/16 09:01 Last Admin: 04/23/16 07:42 Dose: 5 mg Amlodipine Besylate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 Freq: Status: Active Document 04/28/16 11:30 MDS (Rec: 04/28/16 11:31 MDS [id number]) Missed Visit Reason Missed Visit Reason In Dialysis Preliminary Draft Until Electronically Signed by Supervising Therapist Initialized on 04/28/16 11:31 - END OF NOTE 04/28/16 09:27 Nurse Note by Stacey Wilson All Lab Results (24 Hours) 04/26/16 04/27/16 04/27/16 Range/Units 11:00 06:59 10:15 WBC (4.3-11.1) K/mcL RBC (3.82-4.97) M/mcL Hgb (11.5-15.4) g/dL Hct (35.3-44.9) % MCV (83.0-100.0) fL MCH (28.0-33.3) pg MCHC (31.6-35.5) g/dL RDW (11.5-14.5) % Plt Count (140-400) K/mcL MPV (9.4-12.4) fL Immature Gran % (0-4) % Seg Neutrophils % % Lymphocytes % % Monocytes % % Eosinophils % % Basophils % % Neutrophils # (1.6-8.9) K/mcL Lymphocytes # (0.6-4.6) K/mcL Monocytes # (0.0-1.3) K/mcL Eosinophils # (0.0-0.6) K/mcL Basophils # (0.0-0.2) K/mcL PT (9.4-12.1) Seconds INR Sodium (136-145) mEq/L Potassium (3.5-4.5) mEq/L Chloride (98-109) mEq/L Carbon Dioxide (19-29) mEq/L BUN (7-20) mg/dL Creatinine (0.57-1.11) mg/dL Est GFR ( Amer) (> 60) Est GFR (Non-Af Amer) (> 60) BUN/Creatinine Ratio (6-26) Glucose (70-99) mg/dL POC Glucose 119 H (58-89) Calculated Osmolality (280-300) Calcium (8.6-10.8) mg/dL Complement C3 67 L (88-201) mg/dL Complement C4 20 (10-40) mg/dL Hep Bs Antigen Nonreactive (Nonreactive) Hep Bs Antibody 0.34 mIU/mL 04/27/16 04/27/16 04/27/16 Range/Units 11:20 17:02 21:14 WBC (4.3-11.1) K/mcL RBC (3.82-4.97) M/mcL Hgb (11.5-15.4) g/dL Hct (35.3-44.9) % MCV (83.0-100.0) fL MCH (28.0-33.3) pg MCHC (31.6-35.5) g/dL RDW (11.5-14.5) % Plt Count (140-400) K/mcL MPV (9.4-12.4) fL Immature Gran % (0-4) % Seg Neutrophils % % Lymphocytes % % Monocytes % % Eosinophils % % Basophils % % Neutrophils # (1.6-8.9) K/mcL Lymphocytes # (0.6-4.6) K/mcL Monocytes # (0.0-1.3) K/mcL Eosinophils # (0.0-0.6) K/mcL Basophils # (0.0-0.2) K/mcL PT (9.4-12.1) Seconds INR Sodium (136-145) mEq/L Potassium (3.5-4.5) mEq/L Chloride (98-109) mEq/L Carbon Dioxide (19-29) mEq/L BUN (7-20) mg/dL Creatinine (0.57-1.11) mg/dL Est GFR ( Amer) (> 60) Est GFR (Non-Af Amer) (> 60) BUN/Creatinine Ratio (6-26) Glucose (70-99) mg/dL POC Glucose 123 H 100 H 102 H (58-89) Calculated Osmolality (280-300) Calcium (8.6-10.8) mg/dL Complement C3 (88-201) mg/dL Complement C4 (10-40) mg/dL Hep Bs Antigen (Nonreactive) Hep Bs Antibody mIU/mL 04/28/16 04/28/16 04/28/16 Range/Units 05:00 05:00 05:00 WBC 5.0 (4.3-11.1) K/mcL RBC 3.51 L (3.82-4.97) M/mcL Hgb 8.4 L (11.5-15.4) g/dL Hct 27.9 L (35.3-44.9) % MCV 79.5 L (83.0-100.0) fL MCH 23.9 L (28.0-33.3) pg MCHC 30.1 L (31.6-35.5) g/dL RDW 19.0 H (11.5-14.5) % Plt Count 174 (140-400) K/mcL MPV 12.1 (9.4-12.4) fL Immature Gran % 1.8 (0-4) % Seg Neutrophils % 70.2 % Lymphocytes % 17.3 % Monocytes % 8.5 % Eosinophils % 2.0 % Basophils % 0.2 % Neutrophils # 3.5 (1.6-8.9) K/mcL Lymphocytes # 0.9 (0.6-4.6) K/mcL Monocytes # 0.4 (0.0-1.3) K/mcL Eosinophils # 0.1 (0.0-0.6) K/mcL Basophils # 0.0 (0.0-0.2) K/mcL PT 20.7 H (9.4-12.1) Seconds INR 1.9 Sodium 140 (136-145) mEq/L Potassium 3.7 (3.5-4.5) mEq/L Chloride 106 (98-109) mEq/L Carbon Dioxide 26 (19-29) mEq/L BUN 34 H D (7-20) mg/dL Creatinine 2.55 H (0.57-1.11) mg/dL Est GFR ( Amer) 22 L (> 60) Est GFR (Non-Af Amer) 18 L (> 60) BUN/Creatinine Ratio 13 (6-26) Glucose 95 (70-99) mg/dL POC Glucose (58-89) Calculated Osmolality 297 (280-300) Calcium 7.6 L (8.6-10.8) mg/dL Complement C3 (88-201) mg/dL Complement C4 (10-40) mg/dL Hep Bs Antigen (Nonreactive) Hep Bs Antibody mIU/mL Initialized on 04/28/16 09:27 - END OF NOTE 04/28/16 09:01 Nurse Note by Kiesha Atkins Patient to dialysis this morning. On 2A monitor and Genie in tele room notified. Initialized on 04/28/16 09:01 - END OF NOTE 04/28/16 08:19 Transport Report by Merari Larios Date: 04/28/16 Transport Method: Portable codeine Allergy (Verified 03/02/16 10:31) Hives Penicillins [PCN] Allergy (Verified 03/02/16 10:31) Hives Resuscitation Status Oxygen: Nasal Cannula 0 Mental Status: Alert Fall Risk: Isolation: Nurse Required for Transport: No ___ Yes Limb Restrictions: No ___ Yes Behavioral issue/Risk for Elopement: No ___ Yes Telemetry Room Notification: Destination: MRI XRAY STRESS ULTRASOUND CT DIALYSIS ENDO OTHER: Depart Time: Nurse: Transporter: Arrive Time: Received by: ___ Return Time: Nurse: Transporter: ] Initialized on 04/28/16 08:19 - END OF NOTE 04/27/16 14:17 Nurse Note by Praful Chisholm Notified IR about placement and per IR and Dr Ball cvc is in place and can be used Initialized on 04/27/16 14:17 - END OF NOTE 04/27/16 13:57 Transport Report by Jason Hannon Date: 04/27/16 Transport Method: Portable codeine Allergy (Verified 03/02/16 10:31) Hives Penicillins [PCN] Allergy (Verified 03/02/16 10:31) Hives Resuscitation Status 04/27/16 IR cvc insert non tunnel [IR] Routine Mode Of Transportation: Portable Reason For Exam: PERM Order Doctor: Trina Lobo IR us guide needle place [IR] Routine Mode Of Transportation: Portable Reason For Exam: PERM Order Doctor: Trina Lobo Oxygen: Nasal Cannula 1 Mental Status: Agitation/Confusion Fall Risk: Isolation: Nurse Required for Transport: No ___ Yes Limb Restrictions: No ___ Yes Behavioral issue/Risk for Elopement: No ___ Yes Telemetry Room Notification: Destination: MRI XRAY STRESS ULTRASOUND CT DIALYSIS ENDO OTHER: Depart Time: Nurse: Transporter: Arrive Time: Received by: ___ Return Time: Nurse: Transporter: ] Initialized on 04/27/16 13:57 - END OF NOTE 04/27/16 12:44 PT Evaluation by Suzette Kingsley (Please sign and return this section for non-electronic signatures) I have reviewed, and agree with, the below stated plan of care: Referring Provider Signature/Printed Name Date Assessment PT evaluation is completed this date. Pt demonstrate the need for skilled PT to address the followinga areas: bed mobility- let-right roll, supine to sit transfers,AROM,strength of LEs and trunk and sensatization of the left residual limb PT Treatment Diagnosis Other abnormalities of gait and mobility Rehab Potential Fair Planned Interventions Therapeutic Exercise,Therapeutic Activity,Gait Training,Neuromuscular Reeducation Physical Therapy STG's Pt to be (I) in Left residual limb densentization Physical Therapy LTG's Pt to score a 12 on the AM-PAc demonstratine improved safe functional mobility. PT Treatment Frequency Once a Day, Mon-Fri Duration of Treatment 10 Estimated PT Needs at SNF/ECF Discharge Pt. will perform all bed max x 2 left right roll mobility Pt. will perform all transfers max x 2 supine to sit Pt. will demonstrate fair- trunk control for to EOB mobility static/dynamic balance Pt. will participate in of 15 minutes continuous activity Pt. will perform therapeutic Verbal/Tactile Cues exercise Physical Therapy PT Acute Eval Start: 04/27/16 11: 32 Freq: Status: Active Document 04/27/16 12:32 RLM (Rec: 04/27/16 12:44 RLM [id number]) Inpatient Rehab Intake History Date of Admission 04/21/16 Chief Complaint s/p AKA PMH/Surgical History Relevant to Rehab CHF, HTN, hyperlipidemia, arrhythmia, cardio myopathy, asthma, dementia, CRD stage IV , DM, GERD, microcytosis, constipation, toxic metabolic encephalopathy, delirium, UTI, diabetic foot infection, ischemic cardiomyopathy, acute respiratory failure, elevated troponin, demand ischemic mycardian, CAD, anemia, acute renal tackie, Medical Diagnosis Diagnosis Peripheral vascular disease, unspecified Reason for Referral/Orders PT evaluation Safety/Limitations History of falls in past 6 months No History Home/PLOF History Provided By Patient Lives With: Spouse Number of Floors (Floors) 1 Are there handrails? Ramp Entry Bathing Environment Tub/Shower Current DME Power Wheelchair/Scooter Sliding Board Shower Chair Prior Level Of Function Patient required assistance for bathing, LE dressing. Has HH 7 days a week, 4 hours per day to assist with cleaning, cooking, laundry. Prior Mobility Level Patient transfers independently but has been non -ambulatory for years Driving Patient does not drives uses [employer] for transportation. Patient/Family Goal Patient unsure of discharge plans considering rehab. Pain Assessment Pain Present Pain Present Reports Pain Pain Left Knee Radiation Location also arm and leg, pain seemed generalized and hyperactive. Intensity 10 Scale Used Numeric (1 - 10) Left Upper Arm Pain Description Acute Tender With Movement Functional Mobility Assessment Endurance Activity Tolerance Poor Additional Info Additional Information Pt over reactive does not want the left residual limb touched, refuses all bed movement this date 2/2 to fear of potential pain. Pt will not allow therapist to move pt off the right hip to assess the mobility, Pt will not allow movement of the left LE this date Gait/Stairs Deviation Assess. General Ambulation Ability Total Assistance Stairs Stair Comment coccyx Gross Strength/ROM Upper Extremity Gross UE Strength Impaired Gross UE ROM Impaired UE ROM/Strength Detail defer UEs to OT UE shoulder AROM to approximately 70 degrees bilatrally. Elbow flexion and extension with full AROM. Lower Extremity Gross LE Strength Impaired LE ROM/Strength Detail LLE pt will not allow assessment RLE foot and knee 50% decline in AROM, right hip cannot be assess as te pt will not allow mobility in the bed - RLE strength 2+ Torso/Spine Torso/Spine Detail PT unable to assess 2/2 to pt not willing to move Edema/Skin Integrity Skin Integrity Comment left residual limb incision, right foot dressed in bandages Gross Sensorimotor Sensory Sensation Response to Kinesthesia ( Impaired Movement) Stimulus Coordination Gross Coordination RUE Impaired LUE Impaired RLE Impaired LLE Impaired Fine Motor Coordination RLE Impaired Coordination Assessment General Gross Coordination RUE Impaired LUE Impaired RLE Impaired LLE Impaired Cognition/Visual Assessment Alertness/Orientation Level of Alertness Alert Patient Orientation Person Name Date of Awareness/Safety Mental Status Alert & Oriented Safety Awareness Patient is Unaware of Their Safety Patient Is Unaware of Others Safety Patient Is Unaware of Situations Around Them Patient Is Unaware of Safety Issues Attention to Task Unable to Make Plans Unable to Organize Plans Unable to Remember Details Visual Visual Acuity Impaired R Vision Comment Minimal vision in right eye Auditory Hearing Ability Normal Comprehension Ability to Follow Directions Follows One Step Needs Directions Repeated Comprehension Ability Mild Impairment Expression/Communication Patient Behavior Appropriate Cooperative Anxious Fearful Speech Pattern Clear Appropriate Rehab Education Education Provided Education Topic ADLs Bed Mobility Teaching Recipient Patient Teaching Method Verbal Response to Teaching Reinforcement needed Education Provided: Details Pt educating this patient on the need to move andthe need for densensatization of the LLE Acute Care PT POC Stroke Is patient being assessed for No rehabilitation for diagnosis of stroke? Summary AM-PAC PT Basic Mobility Raw Score 5 AM-PAC CMS 0-100% Impaired Score 100 Problems/Impairments/Functional Decreased Functional Endurance Limitation Decreased ADL's/IADL's Decreased Safety/Judgement/ Cognition Decreased Functional Mobility/ Transfers Decreased ROM Decreased Strength Assessment PT evaluation is completed this date. Pt demonstrate the need for skilled PT to address the followinga areas: bed mobility- let-right roll, supine to sit transfers,AROM, strength of LEs and trunk and sensatization of the left residual limb Rehab Potential Fair Disposition at end of Eval/Treatment In bed Lines intact Call light/phone within reach Tray table within reach All needs met Plan of Care PT Treatment Diagnosis Other abnormalities of gait and mobility Additional PT Treatment Diagnosis/ R53.1 Clarification R27.8 Planned Interventions Therapeutic Exercise Therapeutic Activity Gait Training Neuromuscular Reeducation PT Treatment Frequency Once a Day, Mon-Fri Duration of Treatment 10 Goals Determined With Patient/Family Yes Estimated PT Needs at Discharge SNF/ECF Functional Mobility Goals Pt. will perform all bed mobility with__ max x 2 left right roll ___to increase functional indendence. Pt. will perform all transfers with max x 2 supine to sit to increase safe functional mobility and independence. Pt. will demonstrate static/dynamic fair- trunk control for to EOB balance during all functional activities mobility allowing increased safety awareness. ROM/Strength/Endurance Goals Pt. will participate in of 15 minutes continuous activity allowing increased endurance while completing ADLs improving quality of life. Education Goals Pt. will perform therapeutic exercise Verbal/Tactile Cues with to improve functional ROM, strength, and endurance during all functional activities. Additional Goals Physical Therapy STG's Pt to be (I) in Left residual limb densentization Physical Therapy LTG's Pt to score a 12 on the AM-PAc demonstratine improved safe functional mobility. Supervising Therapist Supervising Therapist Suzette Kingsley Eval and Re-Eval Charges G-Code Evaluation Time Evaluation Time: Minutes with Patient 30 Complexity Eval/Re-eval Physical Therapy Evaluation Low Yes Complexity Documentation Complete PT Charges/Documentation Finished? Yes Last Visit Is patient being discharged from PT No today? Business Needs Please Select All That Apply To Today's G-godes Documented Visit Financial Class MCR Secondary Payer Y PT G-code Therapy Billing Start: 04/27/16 11: 32 Freq: Status: Active Document 04/27/16 12:32 [facility] (Rec: 04/27/16 12:44 [facility] [id number]) PT G-codes G-Code Required G-code Required For This Visit No Current G-code Status PT Current Status Body Position PT Current Status Modifier At least 100% impaired, limited or restricted Goal G-code Status PT Goal Status Body Position PT Goal Status Modifer At least 60% but less than 80% impaired, limited or restricted Preliminary Draft Until Electronically Signed by Supervising Therapist Initialized on 04/27/16 12:44 - END OF NOTE 04/27/16 10:59 OT Evaluation by Lisette Ashton (Please sign and return this section for non-electronic signatures) I have reviewed, and agree with, the below stated plan of care: Referring Provider Signature/Printed Name Date OT Treatment Diagnosis Muscle weakness (generalized) Assessment Patient has above deficits that warrant OT treatment at this time. Patient self-limiting with pain a limiting factor as well. Patient also requires further placement to maximize functional status and return to prior functioning level. Rehab Potential Fair Planned OT Interventions Therapeutic Exercise,Therapeutic Activity,Self Care/Home Management OT Treatment Frequency Once a Day, Mon-Fri OT Duration of Treatment hospitalization Estimated OT Needs at SNF/ECF Discharge Occupational Therapy STG's 1. Patient will perform basic ADLs for grooming with set-up assistance. 2. Patient will tolerate UE ROM and activity tolerance times 10 minutes. Patient will participate Moderate Assistance Patient will improve [facility] Patient will improve impaired 20-30 Degrees UE Patient will improve Bilateral UE strength by 1/2 grade Patient will complete 10-15 min with breaks Occupational Therapy OT Acute Eval Start: 04/27/16 10: 30 Freq: Status: Active Document 04/27/16 10:30 LLN (Rec: 04/27/16 10:58 LLN [id number]) Inpatient Rehab Intake History Date of Admission 04/21/16 Chief Complaint s/p AKA PMH/Surgical History Relevant to Rehab CHF, HTN, hyperlipidemia, arrhythmia, cardio myopathy, asthma, dementia, CRD stage IV , DM, GERD, microcytosis, constipation, toxic metabolic encephalopathy, delirium, UTI, diabetic foot infection, ischemic cardiomyopathy, acute respiratory failure, elevated troponin, demand ischemic mycardian, CAD, anemia, acute renal tackie, Medical Diagnosis Diagnosis Peripheral vascular disease, unspecified Reason for Referral/Orders OT evaluation Safety/Limitations History of falls in past 6 months No History Home/PLOF History Provided By Patient Lives With: Spouse Number of Floors (Floors) 1 Are there handrails? Ramp Entry Bathing Environment Tub/Shower Current DME Power Wheelchair/Scooter Sliding Board Shower Chair Prior Level Of Function Patient required assistance for bathing, LE dressing. Has HH 7 days a week, 4 hours per day to assist with cleaning, cooking, laundry. Prior Mobility Level Patient transfers independently but has been non -ambulatory for years Driving Patient does not drives uses [employer] for transportation. Patient/Family Goal Patient unsure of discharge plans considering rehab. Pain Assessment Pain Present Pain Present Reports Pain Pain Left Knee Radiation Location also arm and leg, pain seemed generalized and hyperactive. Intensity 10 Scale Used Numeric (1 - 10) Functional Mobility Assessment Endurance Activity Tolerance Poor Additional Info Additional Information Attempted to move patient edge of bed which she had agreed to then screamed in pain with minimal movement. Patient reported fear of moving and needing more time. At this point changed to in bed evaluation to initiate treatment. ADL Assessment Grooming Grooming Ability Maximum Assistance Upper Body Dressing Upper Body Dressing Ability Total Assistance Lower Body Dressing Lower Body Dressing Ability Total Assistance Bathing Washing/Drying Upper Body Ability Maximum Assistance Washing/Drying Lower Extremities Ability Total Assistance Eating Eating (Feeding) Ability Independent Functional Activity Tolerance Activity Tolerance Poor Comment ADL's Patient very sensitive to movement with increased pain response and difficulty with tolerance. Gross Strength/ROM Upper Extremity Gross UE Strength Impaired Gross UE ROM Impaired UE ROM/Strength Detail UE shoulder AROM to approximately 70 degrees bilatrally. Elbow flexion and extension with full AROM. Lower Extremity Gross LE Strength Other (See Detail) Gross LE ROM Other (See Detail) LE ROM/Strength Detail see pT evaluation Gross Sensorimotor Sensory Gross Sensation RUE Impaired RLE Impaired LLE Impaired Sensation Assessment Summary Comments Hypersensitive pain response generalized with touch and movement Coordination Gross Coordination RUE Impaired LUE Impaired Fine Motor Coordination No Deficit Noted Cognition/Visual Assessment Awareness/Safety Mental Status Alert & Oriented Visual Visual Acuity Impaired R Vision Comment Minimal vision in right eye Auditory Hearing Ability Normal Comprehension Ability to Follow Directions Follows One Step Needs Directions Repeated Comprehension Ability Mild Impairment Expression/Communication Patient Behavior Appropriate Cooperative Speech Pattern Clear Appropriate Rehab Education Education Provided Education Topic ADLs Bed Mobility Teaching Recipient Patient Teaching Method Verbal Response to Teaching Verbalize understanding Acute OT POC Stroke Is patient being assessed for No rehabilitation for diagnosis of stroke? Summary AM-PAC OT Inpatient Daily Activity Raw 11 Score AM-PAC CMS 0-100% Impaired Score 70 Problems/Impairments/Functional Decreased Functional Endurance Limitation Decreased ADL's/IADL's Decreased Safety/Judgement/ Cognition Decreased Functional Mobility/ Transfers Decreased ROM Decreased Strength Assessment Patient has above deficits that warrant OT treatment at this time. Patient self- limiting with pain a limiting factor as well. Patient also requires further placement to maximize functional status and return to prior functioning level. Rehab Potential Fair Disposition at end of Eval/Treatment In bed Lines intact Call light/phone within reach Tray table within reach All needs met Plan of Care OT Treatment Diagnosis Muscle weakness (generalized) Planned OT Interventions Therapeutic Exercise Therapeutic Activity Self Care/Home Management OT Treatment Frequency Once a Day, Mon-Fri OT Duration of Treatment hospitalization Estimated OT Needs at Discharge SNF/ECF OT Estimated DME Needs at D/C None ADL/Outcome Goals Patient will participate in ADLs of Moderate Assistance various media (dressing,bathing) with___ __ to improve ADL I/participation by hospital discharge. Patient will improve functional outcome AMPAC score on by noted improvement of score (increase or decrease as measured on tool by 2 points) within short term hospitalization stay. Strength/ROM/Endurance Goals Patient will improve impaired UE ROM by 20-30 Degrees to improve ADL performance/ participation by hospital discharge. Patient will improve strength by 1 Bilateral UE /2 grade to improve ADL participation & independence by short term hospial stay. Patient will complete of paced 10-15 min with breaks therapeutic exercise to improve functional stamina as needed for daily routine & ADLs by hosptial discharge. Additional Goals Occupational Therapy STG's 1. Patient will perform basic ADLs for grooming with set-up assistance. 2. Patient will tolerate UE ROM and activity tolerance times 10 minutes. Supervising Therapist Supervising Therapist Lisette Ashton Eval and Re-Eval Charges G-Code Evaluation Time Evaluation Time: Minutes with Patient 30 Complexity Eval/Re-eval Occupational Therapy Evaluation Low Yes Complexity Documentation Complete OT Charges/Documentation Finished? Yes Last Visit Is patient being discharged from OT No today? Business Needs Financial Class MCR Secondary Payer Y OT G-code Therapy Billing Start: 04/27/16 10: 30 Freq: Status: Active Document 04/27/16 10:58 CHASIDY (Rec: 04/27/16 10:59 CHASIDY [id number]) OT G-codes G-Code Required G-code Required For This Visit No Current G-code Status OT Current Status Self Care OT Current Status Modifier At least 60% but less than 80% impaired, limited or restricted Goal G-code Status OT Goal Status Self Care OT Goal Status Modifier At least 60% but less than 80% impaired, limited or restricted Preliminary Draft Until Electronically Signed by Supervising Therapist Initialized on 04/27/16 10:59 - END OF NOTE 04/27/16 04:37 Nurse Note by Denis Birmingham Patient taken to ultrasound at approximately 2125. At approximately 2140 received call from Ultrasound stating that patient was yelling and screaming and refusing to allow ultrasound to be completed. Advised repeat at a latter time when patient would possibly be more compliant. Throughout night patient has been non compliant and yelling and screaming at time. Initialized on 04/27/16 04:37 - END OF NOTE 04/27/16 03:37 Nurse Note by Renee Shrestha pt. refused to me turned Initialized on 04/27/16 03:37 - END OF NOTE 04/26/16 22:38 Nurse Note by Renee Shrestha pt. refused to be turned Initialized on 04/26/16 22:38 - END OF NOTE 04/26/16 21:25 Transport Report by Modesta Crani Date: 04/26/16 Transport Method: Portable codeine Allergy (Verified 03/02/16 10:31) Hives Penicillins [PCN] Allergy (Verified 03/02/16 10:31) Hives Resuscitation Status 04/26/16 21:45 US retroperitoneal comp [US] Routine Comment: Mode Of Transportation: Portable Reason For Exam: LINDA Order Doctor: John Cheng Exam Performed At:: [facility] Additional Notes/Special Instructions: PREP TO ISABEL LANDEROS. PT ISN'T VERY ALERT AND ORIENTED. Oxygen: Nasal Cannula 1 Mental Status: Agitation/Confusion Fall Risk: Isolation: Nurse Required for Transport: No ___ Yes Limb Restrictions: No ___ Yes Behavioral issue/Risk for Elopement: No ___ Yes Telemetry Room Notification: Destination: MRI XRAY STRESS ULTRASOUND CT DIALYSIS ENDO OTHER: Depart Time: Nurse: Transporter: Arrive Time: Received by: ___ Return Time: Nurse: Transporter: ] Initialized on 04/26/16 21:25 - END OF NOTE 04/26/16 16:18 Nurse Note by Maribell Mera, salvage determiner for [facility], visited patient at the bedside. Acknoweldged that Dirk has been working with re: return to [place]. Ric here to get clinical update on patient. This nurse stated that patient has had AKA without complications, but is having increased confusion and decreased urine output. Discharge not anticipated today or tomorrow. Initialized on 04/26/16 16:18 - END OF NOTE 04/26/16 14:47 Nurse Note by Maribell Mera Spoke to Dr. Claire. Notified of Dr. Cheng plan for possible dialysis tomorrow. Per Dr. Claire, OK to keep IV fluid running at ml/hr. Please call if patient has any difficulty breathing or signs of fluid overload. Initialized on 04/26/16 14:47 - END OF NOTE 04/26/16 12:29 Nurse Note by Maribell Mera Addendum entered by Maribell Mera RN 04/26/16 12:44: VOCERA page sent to Dr. Cheng to notify him of conversation. Physician confirmed receipt and understanding that spouse will need to be called for consent, if needed. Original Note: This nurse placed phone call to Wauconda Corwin, patient's spouse, at phone number in chart. Spouse states that he is unable to travel to the hospital due to his own health, but states he is always available at phone number [phone]. States he last spoke to a physician on Monday morning and discussed "taking the leg off." This nurse updated spouse that An's kidneys are having trouble, she is getting weak and confused, and that she has been refusing to eat or drink. Spouse verbalized understanding. This nurse stated that kidney doctors have been in to see patient and that they think she may need dialysis. Spouse stated that he would be interested in discussing dialysis as a therapy for An. Initialized on 04/26/16 12:29 - END OF NOTE 04/26/16 12:26 Nurse Note by Kandis Bee Reviewed and agree with charting by SN Diamond. Student to correct charting on Left femoral pulse. Kandis Bee RN [facility] Initialized on 04/26/16 12:26 - END OF NOTE 04/26/16 12:08 Nurse Note by Maribell Mera Received call from Simon Johansen, who states she is the patient's sister. Simon did not have the FIND code, and stated she called nurse's station because she tried to call the patient and she did not answer. This nurse approached An in the room and asked if she would like sister's call transferred into the room. "I don't care" was the patient's response, but she would not cooperate to hold the phone or allow the phone to be held to her ear. Obtained Simon's phone number: [phone]. Will attempt to assist the patient calling sister if she wishes. Initialized on 04/26/16 12:08 - END OF NOTE 04/26/16 10:48 Social Work Note by Frank Jerome Continued follow-up. TC with Dirk at [facility] to update him on pts. medical status. Inquired and was informed that pt. doesn't have a DPOA. At this time, discharge date is unknown. Initialized on 04/26/16 10:48 - END OF NOTE 04/25/16 12:39 Transport Report by Evelyn Wheeler Date: 04/25/16 Transport Method: Portable codeine Allergy (Verified 03/02/16 10:31) Hives Penicillins [PCN] Allergy (Verified 03/02/16 10:31) Hives Resuscitation Status 04/25/16 16:00 Retroperitoneal Ultrasound - Complete [US retroperitoneal comp] [US] Routine Comment: Mode Of Transportation: Portable Reason For Exam: Oliguria, worsening renal failure Order Doctor: Trina Lobo Exam Performed At:: [facility] Additional Notes/Special Instructions: prep given, transport aware Oxygen: Nasal Cannula 1 Mental Status: Agitation/Confusion Fall Risk: Isolation: Nurse Required for Transport: No ___ Yes Limb Restrictions: No ___ Yes Behavioral issue/Risk for Elopement: No ___ Yes Telemetry Room Notification: Destination: MRI XRAY STRESS ULTRASOUND CT DIALYSIS ENDO OTHER: Depart Time: Nurse: Transporter: Arrive Time: Received by: ___ Return Time: Nurse: Transporter: ] Initialized on 04/25/16 12:39 - END OF NOTE 04/25/16 09:27 [employer] by Gi Torres Received consult for diabetes education. Pt being discharged to [facility], education not appropriate at this time. Initialized on 04/25/16 09:27 - END OF NOTE 04/24/16 10:05 Phase I Recovery Note by Sandra Barbosa Addendum entered by Sandra Barbosa 04/24/16 10:15: 1014-Dr. Beauchamp at bedside, pt continues to deny pain, pt meets criteria for transfer to . Original Note: 04/24/16 0948-pt arrives to pacu at this time on ra. 8l via sfm applied per Dr. Beauchamp. airway patent, respirations spontaneous and unlabored. sats rise from 90% to 98% . report received from Dr. Beauchamp. 0954-pt shakes no when asked if in pain. pt also denies nausea. lcta, pt noted to have productive cough with thick yellow secretions suctioned. 1007-pt resting, vss. o2 wean to 2l via n/c, sats 95%. Initialized on 04/24/16 10:05 - END OF NOTE 04/24/16 09:31 Operative Note by Jani Hector A Patient had hope catheter before coming to the operating room. Initialized on 04/24/16 09:31 - END OF NOTE 04/24/16 07:14 Transport Report by Yarely Mario Date: 04/24/16 Transport Method: Portable codeine Allergy (Verified 03/02/16 10:31) Hives Penicillins [PCN] Allergy (Verified 03/02/16 10:31) Hives Resuscitation Status 04/21/16 07:00 ECG 12 lead ECG [ECG] Routine Mode Of Transportation: Stretcher Reason For Exam: Myocardial Infarction Exam Performed At:: [facility] Oxygen: Nasal Cannula 1.5 Mental Status: Agitation/Confusion Fall Risk: Isolation: Nurse Required for Transport: No ___ Yes Limb Restrictions: No ___ Yes Behavioral issue/Risk for Elopement: No ___ Yes Telemetry Room Notification: Destination: MRI XRAY STRESS ULTRASOUND CT DIALYSIS ENDO OTHER: Depart Time: Nurse: Transporter: Arrive Time: Received by: ___ Return Time: Nurse: Transporter: ] Initialized on 04/24/16 07:14 - END OF NOTE 04/23/16 16:13 Nurse Note by Megan Solano This RN paged Dr. Romero about urine output only being 150 cc at this time. Initialized on 04/23/16 16:13 - END OF NOTE 04/23/16 08:20 Nurse Note by Megan Solano This RN tried to administer medications, pt put meds in mouth with water and spit them out at this RN. This RN asked why pt did that and she stated "because I'm bored". Initialized on 04/23/16 08:20 - END OF NOTE 04/22/16 15:41 Pastoral Care Note by Jalen Miller This rn unit manager attempted a follow up visit from a pastoral care consult but patient was sleeping at the time of visit. Initialized on 04/22/16 15:41 - END OF NOTE 04/22/16 10:37 Social Work Note by Frank Jerome Addendum entered by Frank Jerome 04/22/16 11:03: Received a tc from Dirk at [facility] regarding discharge date. Informed at this time, SW has not been informed if pt. will be ready for discharge today or over the weekend. Informed pts. actual admission date is . Per Dirk, if pt. has a three night qualifying stay, she can return under her skilled Medicare benefit. If pt. is discharged before the , she will return under her Medicaid benefit. Original Note: Received a tc from JJ Mejía inquiring about discharge. Informed that SW is unsure of discharge date. Met with pt. who presents A&O, but still yells out alot. Discussed fact [facility] is holding her bed for her. Informed she will continue rehab at the facility. Pt. asked if she could go now. When SW responded she would have to check with the physician, she responded "why are you even telling me about it." Pt. is to return to [facility] upon discharge. Initialized on 04/22/16 10:37 - END OF NOTE 04/21/16 16:15 Wound Care by Stacey Mendiola Wound Care Received a referral to see patient regarding bilateral diabetic foot ulcers. The patient was here in March and followed by Podiatry - Vanesa Colorado CNP. The staff is instructed to get a referral for podiatry at this time. The wounds are as follows: 1] L. medial malleolus - 7cm x 3.5cm black eschar - at 12 o'clock there is an opening in the eschar with dark red purulent drainage, and a tendon is visible in the base of the wound. The ankle is edematous with erythema. 2] L. lateral heel - 2cm x 2.5cm intact blood blister 3] R. medial heel - superficial ruptured blister 2.7cm x 2cm - dry without drainage. The staff nurses are instructed to cleanse with HCG soap - cover wounds with adaptic gauze - pad with 4x4s - wrap with kerlix until seen by Podiatry or Vascular Surgery. The L. medial malleolus with need surgical intervention of some type. Will follow with you and assist as needed. Initialized on 04/21/16 16:15 - END OF NOTE 04/21/16 10:22 Nurse Note by Sheeba Vivar Spoke to granddaughterJazmín re: pt. current health status. Family reports that pt. youngest son Wauconda Corwin . obtained POA healthcare at a prior hospitalization. ISABEL Mejia. Initialized on 04/21/16 10:22 - END OF NOTE 04/21/16 10:16 Social Work Note by Frank Jerome Addendum entered by Frank Jerome 04/21/16 14:51: Received a return call from Alfonzo with [employer]. She states she has spoke with [employer] who states they can place services back in the home, but it won' t be what pt. is use to having. At the beginning of next week, [employer] states they will be able to manage the staffing pt. requires. It's possible pts. hours will increase to five hours daily as a split shift. Original Note: Continued follow-up. Received a return call from Suzette ([id number]) PASSIZZY MILLER. Informed her that pt. keeps stating she is returning home. Per Suzette, if pt. returns home, they need as much notice as possible d/t she is unsure if [facility] will continue to provide services in the home. Suzette also states that they have a Risk Agreement. If pt. goes home and doesn't follow agreement , she will loose her [employer] services. SW informed by pts. primary nurse-Sheeba that pts. son-Jonathan Olivia Josefina is DPOA and will be in later to see pt. Informed SW would like to meet with the son at that time. Initialized on 04/21/16 10:16 - END OF NOTE 04/21/16 06:51 Nurse Note by Taylor Stevens Patients oxygen sat down to 86% refusing to wear oxygen. Initialized on 04/21/16 06:51 - END OF NOTE 04/21/16 06:36 Nurse Note by Taylor Stevens Patient refusing to take PO tylenol for temp of 100.9. Repeated attempts made. Initialized on 04/21/16 06:36 - END OF NOTE 04/20/16 12:34 (created 04/20/16 12:52) Nurse Note by Sheeba Vivar Pt. out of room for ECHO. S.Ivvar. RN Initialized on 04/20/16 12:52 - END OF NOTE 04/20/16 11:46 Clinical Case Mgmt by Cielo Mosley Clinical Case Mgmt Does The Patient Have A Yes: at [facility] Physician That They See Regularly Patient Referred To [id number] No Does The PT Have Any Trouble No Getting To Their Appointment Are There Any Meds The PT Has No Trouble Getting Filled Monthly Home Environment [facility] Support Services [employer] Is The Patient Appropriate For Yes Case Management Is The Patient Appropriate For Yes Social Work Consult Referrals Made Yes Is The PT Appropriate For No Navigation Or Payer Case Mgmt Patient is from [facility]. I called to confirm that patient has a bed hold there. Patient states she does not want to return there. I spoke with the patient that is was not in her best interest to return home at this time. She still stated that she wanted to go home . I spoke with Suzette at [phone]. This is her passport cm. She stated that she could put her passport services at risk if she were to return home. She stated that this patient is very non-compliant with her medical care. She states that there is a spouse but he does not help her. She was receiving 4 hrs of aid service a day from [employer]. She did have a nurse coming for dressing changes but [facility] dropped her from [facility]. Initialized on 04/20/16 11:46 - END OF NOTE 04/20/16 11:30 Pastoral Care Note by Jalen Miller This rn unit manager responded to a pastoral care consult on the patient but she was asleep. [employer] Commerce Developer will make another attempt to visit patient. Initialized on 04/20/16 11:30 - END OF NOTE 04/20/16 07:07 Nurse Note by Taylor Stevens. Patient arrived to [facility] accompanied with 2A staff. Vital signs stable. Initialized on 04/20/16 07:07 - END OF NOTE 04/20/16 06:56 Transport Report by Jason Hannon Date: 04/20/16 Transport Method: Stretcher codeine Allergy (Verified 03/02/16 10:31) Hives Penicillins [PCN] Allergy (Verified 03/02/16 10:31) Hives Resuscitation Status 04/20/16 00:15 ECG 12 lead ECG [ECG] Stat Mode Of Transportation: Stretcher Reason For Exam: Myocardial Infarction Exam Performed At:: [facility] EV echocardiogram Routine Mode Of Transportation: Stretcher Reason For Exam: ACS Exam Performed At:: [facility] 04/21/16 07:00 ECG 12 lead ECG [ECG] Routine Mode Of Transportation: Stretcher Reason For Exam: Myocardial Infarction Exam Performed At:: [facility] Oxygen: Nasal Cannula 2 Mental Status: Fall Risk: Isolation: Nurse Required for Transport: No ___ Yes Limb Restrictions: No ___ Yes Behavioral issue/Risk for Elopement: No ___ Yes Telemetry Room Notification: Destination: MRI XRAY STRESS ULTRASOUND CT DIALYSIS ENDO OTHER: Depart Time: Nurse: Transporter: Arrive Time: Received by: ___ Return Time: Nurse: Transporter: ] Initialized on 04/20/16 06:56 - END OF NOTE 04/20/16 06:50 (created 04/20/16 06:52) Nurse Note by Gianna Chavez REPORT TO HAILY HALL ON 2N THEN PT. TRANSFERRED TO 2N-01 WITHOUT INCIDENT. Initialized on 04/20/16 06:52 - END OF NOTE 04/20/16 04:25 (created 04/20/16 08:11) Nurse Note by Gianna Chavez PT. RETURNED TO ROOM FROM CT WITHOUT INCIDENT. Initialized on 04/20/16 08:11 - END OF NOTE 04/20/16 04:05 (created 04/20/16 08:10) Nurse Note by Gianna Chavez PT. TO CT FOR CT HEAD X 2 STAFF ON MONITOR AND O2 AT 2LPM/NC. Initialized on 04/20/16 08:10 - END OF NOTE 04/19/16 23:45 (created 04/20/16 06:48) Nurse Note by Gianna Chavez PT. ADMITTED TO 2A-42 FROM [facility] WITHOUT INCIDENT. PT. WITH HEPARIN GTT INFUSING AT 22.6 TO 20 G IV TO RIGHT HAND. Initialized on 04/20/16 06:48 - END OF NOTE Orders 04/20/16 00:15 Cardiac monitoring [RC] .ONCE Continuous pulse oximetry [RC] .ONCE Comment: Oxygen via nasal cannula Nasal Cannula 2 lpm Comment: Peripheral IV [RC] CONT Placement to Observation Routine Physician Instructions: Reason for Visit: NSETMI; AMS;UTI; LINDA Is VTE Prophylaxis Indicated?: Yes Vital Signs Assessment [RC] Q4H Consult to Cardiac Rehabilitation-Phase1 [CONS] Routine Comment: Reason for Consult: AMI Call Completed: Yes Consult to Pastoral Services [CONS] Routine Comment: JÚNIOR REQUESTED Consult to B[employer] Broach Operator [CONS] Routine Reason for SW Consult: POA 0.9 % Sodium Chloride 1,000 ml IVC 50 mls/hr Acetaminophen [Tylenol] 650 mg PO Q6HR PRN Docusate [Colace] 100 mg PO BID PRN Ketorolac [Toradol] 30 mg IVP Q6HR PRN Metoprolol [Lopressor] 5 mg IVP Q6HR PRN Naloxone [Narcan] 0.4 mg IVP Q2MIN PRN Nitroglycerin 0.4 mg SL Q5MIN PRN OxyCODONE Immed Rel [Roxicodone] 5 mg PO Q6HR PRN EV echocardiogram Routine Mode Of Transportation: Stretcher Reason For Exam: ACS Exam Performed At:: [facility] with Assist Daily Comment: Physician Instructions: 04/20/16 00:16 Bed rest [RC] .CONT Physician Instructions: Bed rest w/bedside commode [RC] .PRN RT has an order or consult [RC] NOW 04/20/16 00:17 Cardiac Monitoring Med/Surg [RC] .CONT Telemetry Reason: ACS/CP Continuous pulse oximetry [RC] CONT Comment: Measure intake and output [RC] QSHIFT Measure weight [RC] DAILY Oxygen via nasal cannula Nasal Cannula 2 lpm Comment: Titrate O2 to main O2 sat greater than: 92% 04/20/16 00:22 12 lead ECG assessment [RC] NOW 04/20/16 00:26 Assess for bleeding [RC] .PER UNIT PROTOCOL Assess neurologic status [RC] q4h Communication order [RC] .PRN Comment: Communication order [RC] CONT Comment: Notify provider [RC] .PRN Physician Instructions: Heparin 2,000 unit IVP Q6H PRN Heparin 4,000 unit IVP ONCE ONE Heparin 4,000 unit IVP Q6HR PRN 04/20/16 00:30 Heparin 25,000 UNIT/500 ML D5W 25,000 unit in 500 ml IVC 11.6 unit/kg/hr 04/20/16 00:33 LORazepam [Ativan] 0.5 mg PO BID PRN How will this medication be supplied?: Pharmacy to Subsitute Nitroglycerin 0.4 mg SL QDPC PRN TraMADol [Ultram] 50 mg PO QID PRN 04/20/16 01:31 Activated Partial Thrombo Time [COAG] AM 0400 Comment: Specimen: Send someone from the department to collect B-Type Natriuretic Peptide AM 0400 Comment: Specimen: Send someone from the department to collect Complete Blood Count [HEME] AM 0400 Comment: Specimen: Send someone from the department to collect Comprehensive Metabolic Panel AM 0400 Comment: Specimen: Send someone from the department to collect Hgb A1C AM 0400 Comment: Specimen: Send someone from the department to collect Lipid Panel AM 0400 Comment: Specimen: Send someone from the department to collect Magnesium AM 0400 Comment: Specimen: Send someone from the department to collect Phosphorous AM 0400 Comment: Specimen: Send someone from the department to collect Prothrombin Time INR [COAG] AM 0400 Comment: Specimen: Send someone from the department to collect Thyroid Stimulating Hormone AM 0400 Comment: Specimen: Send someone from the department to collect Troponin I Q6H Comment: Specimen: Send someone from the department to collect 04/20/16 02:34 Activated Partial Thrombo Time [COAG] Routine Heparin anti-factor XA UFH [COAG] Routine 04/20/16 02:35 POC Glucometer Test [POC] Routine 04/20/16 03:48 CT head/brain wo con [CT] Stat Mode Of Transportation: Stretcher Reason For Exam: acute headache, lethargy on A/C Order Doctor: Brian Mckenna Exam Performed At:: [facility] Allergic to Contrast: No 04/20/16 04:10 Transfer Patient [RC] ONCE Patient Transfer: Telemetry Specific Unit: 2NORTH 04/20/16 04:16 Glucose, blood poc measurement [RC] .Q6 Hypoglycemia Treatment Orders [RC] .once Notify provider [RC] once Physician Instructions: Consult to [employer] [CONS] Routine Comment: D5% in Water [Dextrose 5%] 1,000 ml IV CONT Dextrose 50 % in Water (Syg) [Dextrose 50% (Syg)] 25 ml IVP AD PRN Dextrose Gel [Gluctose] 15 gm PO ONCE PRN Dextrose Gel [Gluctose] 30 gm PO ONCE PRN Glucagon, Human Recombinant [GlucaGen] 1 mg IM ONCE PRN 04/20/16 04:21 0.9 % Sodium Chloride 1,000 ml IVC 125 mls/hr Magnesium Sulfate 2 gm D5% in Water [Dextrose 5%] 100 ml IVPB ONCE 04/20/16 04:58 Vancomycin [Vancocin] 0 each IVPB RPHPROT PRN 04/20/16 05:00 Vancomycin [Vancocin (wt based)] 1,250 mg D5% in Water [Dextrose 5%] 250 ml IVPB RPHPROT 04/20/16 05:30 Vancomycin [Vancocin] 1,250 mg D5% in Water [Dextrose 5%] 250 ml IVPB ONCE 04/20/16 06:00 Insulin LISPRO [HumaLOG] See Protocol SQ Q6HR 04/20/16 07:07 POC Glucometer Test [POC] Routine 04/20/16 08:48 Communication order [RC] ONCE Comment: IV Invasive line management [RC] q4h May use line for blood draws [RC] .PRN Signed consent on chart [RC] .ONCE Surgical preparation, skin ant [RC] .ONCE Consult to Invasive Line Access Team [CONS] Routine Reason for Consult: Power glide insertion Line Type: EPIV PICC line indications: Limited vascular access Time Notified: 08:48 Call Completed: Yes Lidocaine -MPF 1% [Xylocaine-MPF 1% Ampule] 5 ml INFILT ONCE ONE 04/20/16 09:00 Amlodipine [Norvasc] 5 mg PO DAILY Aspirin 81 mg PO DAILY Digoxin [Lanoxin] 0.125 mg PO DAILY Ertapenem [INVanz] 1,000 mg 0.9 % Sodium Chloride Mini Bag [0.9 % Sodium Chloride (Mini-Bag +)] 100 ml IVPB DAILY Insulin NPH/REG 70/30 [HumuLIN 70/30 VIAL] 30 unit SQ QAM How will this medication be supplied?: Pharmacy to Subsitute Isosorbide MONOnitrate (24 HR) [Imdur] 60 mg PO DAILY Lactobacillus [Culturelle] 1 each PO BID Levothyroxine [Synthroid] 200 mcg PO DAILY How will this medication be supplied?: Pharmacy to Subsitute Metoprolol [Lopressor] 50 mg PO BID Nystatin POWDER [Nystop] 1 appl TP BID Omeprazole [PriLOSEC] 20 mg PO DAILY Pantoprazole [Protonix] 40 mg IVP DAILY Paricalcitol [Zemplar] 1 mcg PO DAILY 04/20/16 09:20 Consult to Cardiology [CONS] Routine Comment: Consulting Provider: Cardiology Saundra Reason for Consult: NSTEMI Call Completed: Yes 04/20/16 09:50 Activated Partial Thrombo Time [COAG] Routine C-Reactive Protein Routine Comment: Specimen: Send someone from the department to collect Culture,Blood [BC] Routine Comment: TRUNG Source: Peripheral Venipuncture Quantity: 2 Specimen: Send someone from the department to collect Specimen Description: D-Dimer [COAG] AM 0400 Comment: Specimen: Send someone from the department to collect Fibrinogen [COAG] AM 0400 Comment: Specimen: Send someone from the department to collect Heparin anti-factor XA UFH [COAG] Routine Lactic Acid ([facility] Only) AM 0400 Comment: Specimen: Send someone from the department to collect Thyroid Stimulating Hormone Routine Comment: Specimen: Send someone from the department to collect Triiodothyronine (T3) Free Routine Comment: Specimen: Send someone from the department to collect Troponin I Q6H Comment: Specimen: Send someone from the department to collect VBG [Venous Blood Gas] AM 0400 Comment: Specimen: Send someone from the department to collect sed rate [Erythrocyte Sedimentation Rate] [HEME] Routine Comment: Specimen: Send someone from the department to collect 04/20/16 10:06 EPIV Insertion [RC] .ONCE Powerglide indications: Limited vascular access IV Invasive line management [RC] QSHIFT May use line for blood draws [RC] .PRN Signed consent on chart [RC] .ONCE Surgical preparation, skin ant [RC] .ONCE Consult to Invasive Line Access Team [CONS] Routine Reason for Consult: limited vascular access Line Type: EPIV 04/20/16 10:17 Ertapenem [INVanz] 500 mg 0.9 % Sodium Chloride 100 ml IVPB DAILY 04/20/16 11:00 Urinalysis reflex Microscopic [URIN] AM 0400 Comment: Specimen: Send someone from the department to collect Source of specimen:: Not Supplied 04/20/16 12:30 Drug Screen, Urine [UCHEM] Routine Comment: Specimen: Has been collected 04/20/16 17:30 Lactic Acid ([facility] Only) Routine Comment: Specimen: Send someone from the department to collect Troponin I Routine Comment: Specimen: Send someone from the department to collect Vancomycin,Random Timed Comment: Specimen: Send someone from the department to collect 04/20/16 18:00 Meropenem [Merrem] 500 mg 0.9 % Sodium Chloride Mini Bag [0.9 % Sodium Chloride (Mini-Bag +)] 100 ml IVPB Q12HR Warfarin [Coumadin] 0.5 mg PO DAILY@1800 Warfarin perPT [Coumadin perPT] 1 each PO DAILY@1800 PRN 04/20/16 18:37 Glucose, blood poc measurement [RC] ACHS 04/20/16 18:45 Insulin LISPRO [HumaLOG] See Protocol SQ TIDAC 04/20/16 18:47 Vancomycin [Vancocin] 1,250 mg D5% in Water [Dextrose 5%] 250 ml IVPB ONCE 04/20/16 19:47 POC Glucometer Test [POC] Routine 04/20/16 21:00 Insulin LISPRO [HumaLOG] See Protocol SQ HS Insulin NPH/REG 70/30 [HumuLIN 70/30 VIAL] 28 unit SQ HS How will this medication be supplied?: Pharmacy to Subsitute Rosuvastatin [Crestor] 20 mg PO HS 04/20/16 Dinner Cardiac Diet Diet Modifications: Diabetic Diet Diet Modifications: 04/21/16 00:15 Up with Assist Daily Comment: Physician Instructions: 04/21/16 04:30 Activated Partial Thrombo Time [COAG] 0400 Comment: Specimen: Send someone from the department to collect Complete Blood Count [HEME] AM 0400 Comment: Specimen: Send someone from the department to collect Comprehensive Metabolic Panel AM 0400 Comment: Specimen: Send someone from the department to collect Prothrombin Time INR [COAG] 0400 Comment: Specimen: Send someone from the department to collect 04/21/16 05:38 Furosemide [Lasix] 40 mg IVP ONCE ONE 04/21/16 06:00 Heparin 5,000 unit SQ Q12HCO 04/21/16 06:10 XR chest 1V portable [XR] Stat Mode Of Transportation: Portable Reason For Exam: SOB and elevated temp Order Doctor: Britton Reveles Exam Performed At:: [facility] 04/21/16 06:40 Acetaminophen [Tylenol 650mg SUPP] 650 mg RC Q6HR PRN 04/21/16 07:17 POC Glucometer Test [POC] Routine 04/21/16 09:00 Ertapenem [INVanz] 500 mg 0.9 % Sodium Chloride 100 ml IVPB DAILY 04/21/16 11:12 Admit as Inpatient Routine Estimated Total Length of Stay (Days): 3 Plans for Post Hospital Care: Transfer SNF Inpatient Status Required: Unresolved acute problem Explain each choice below Explain Concerns: NSTEMI, sepsis Potential Adverse Outcome: Cardiac Perfusion Is VTE Prophylaxis Indicated?: Yes Reason Mechanical Device Not Applied: Contraindicated POC Glucometer Test [POC] Routine 04/21/16 11:13 Consult to Wound Care [CONS] Routine Reason for Consult: Right foot with multiple ulcers , stasis dermatitis; Stacey Mendiola requested consult to see patient's wounds again Call Completed: No 04/21/16 11:30 Complete Blood Count w/o Diff [HEME] AM 0400 Comment: Specimen: Send someone from the department to collect Culture,Blood [BC] Routine Comment: TRUNG Source: Peripheral Venipuncture Quantity: 2 Specimen: Send someone from the department to collect Specimen Description: 04/21/16 15:46 POC Glucometer Test [POC] Routine 04/21/16 16:00 MetroNIDAZOLE 500 MG/100 ML [Flagyl 500 MG/100 ML] 500 mg in 100 ml IVPB Q8HR 04/21/16 17:00 XR foot 2V LT [XR] Routine Mode Of Transportation: Portable Reason For Exam: Left heel ulcer Order Doctor: Trina Lobo Exam Performed At:: [facility] 04/21/16 17:19 Consult to Podiatry [CONS] Routine Consulting Provider: [facility] Reason for Consult: Left heel diabetic foot ulcer Call Completed: Yes 04/21/16 18:00 Cefepime HCl [Maxipime] 1,000 mg D5% in Water (Mini-Bag+) [Dextrose 5% ( Minibag+) 100 ML] 100 ml IVPB Q12HR 04/21/16 20:00 Vancomycin [Vancocin] 1,250 mg D5% in Water [Dextrose 5%] 250 ml IVPB Q24H 04/21/16 21:15 POC Glucometer Test [POC] Routine 04/22/16 00:15 Up with Assist Daily Comment: Physician Instructions: 04/22/16 06:20 Activated Partial Thrombo Time [COAG] 0400 Comment: Specimen: Send someone from the department to collect Complete Blood Count [HEME] AM 0400 Comment: Specimen: Send someone from the department to collect Erythrocyte Sedimentation Rate [HEME] AM 0400 Comment: Specimen: Send someone from the department to collect Prothrombin Time INR [COAG] 0400 Comment: Specimen: Send someone from the department to collect 04/22/16 07:19 POC Glucometer Test [POC] Routine 04/22/16 11:19 POC Glucometer Test [POC] Routine 04/22/16 13:00 Levofloxacin 500 MG/100 ML [Levaquin 500mg/100mL] 500 mg in 100 ml IVPB Q48H 04/22/16 13:20 Basic Metabolic Panel AM 0400 Comment: Specimen: Send someone from the department to collect C-Reactive Protein Routine 04/22/16 15:10 POC Glucometer Test [POC] Routine 04/22/16 17:17 Wound Care [RC] daily Physician Instructions: Daily dressing changes Misc. Order2 Stat Order: Please obtain and place bolivar boots bilaterally to elevate ankles and heels off of bed 04/22/16 17:24 Consult to Vascular Surgery [CONS] DAILY Consulting Provider: Vascular Surgery [facility] Reason for Consult: abnormal SRAVANTHI Right: The right posterior tibial pressure is 69 mmHg with an index of 0.42. Left: The left dorsalis pedis pressure is 53 mmHg with an index of 0.33. PVR: Right: The PVR waveforms are severely diminished in the right ankle. Left: The PVR waveforms are severely diminished in the left ankle. Call Completed: Yes 04/22/16 18:15 Vancomycin,Trough Timed Comment: Please obtain prior to 04/22 2000 vanco dose Specimen: Send someone from the department to collect 04/22/16 21:27 POC Glucometer Test [POC] Routine 04/23/16 04:32 Activated Partial Thrombo Time [COAG] 0400 Comment: Specimen: Send someone from the department to collect Blood Urea Nitrogen (BUN) Stat Comment: OK TO USE BLOOD FROM AM LAB DRAW IF AVAILABLE Specimen: Send someone from the department to collect Creatinine Stat Comment: OK TO USE BLOOD FROM AM LAB DRAW IF AVAILABLE Specimen: Send someone from the department to collect Prothrombin Time INR [COAG] 0400 Comment: Specimen: Send someone from the department to collect 04/23/16 05:44 Complete Blood Count w/o Diff [HEME] AM 0400 Comment: Specimen: Send someone from the department to collect 04/23/16 07:45 POC Glucometer Test [POC] Routine 04/23/16 08:04 Aminoglycoside Consult [Kinetic, Aminoglycoside] 1 each .STK-MED ONE 04/23/16 11:30 Consult to Physician [CONS] Routine Consulting Provider: Deacon Solorzano Reason for Consult: VASCULAR Time Notified: 11:31 Call Completed: Yes 04/23/16 11:42 POC Glucometer Test [POC] Routine 04/23/16 16:15 D5% in 0.45% NACL [D5% And 0.45% Nacl 1000 Ml Bag] 1,000 ml IVC 60 mls/hr 04/23/16 16:16 D5% in 0.45% NACL [D5% And 0.45% Nacl 1000 Ml Bag] 1,000 ml IVC As Directed 04/23/16 16:28 POC Glucometer Test [POC] Routine 04/23/16 19:55 POC Glucometer Test [POC] Routine 04/23/16 21:00 Quetiapine Fumarate [SEROquel] 12.5 mg PO HS 04/24/16 03:47 CBC [Complete Blood Count] [HEME] AM 0400 Comment: Specimen: Send someone from the department to collect 04/24/16 07:30 0.9 % Sodium Chloride 500 ml .ROUTE As Directed 04/24/16 07:40 POC Glucometer Test [POC] Routine 04/24/16 07:53 Lidocaine -MPF 2% [Xylocaine-MPF 2%] 2 ml .ROUTE .STK-MED ONE Ondansetron [Zofran] 4 mg .ROUTE .STK-MED ONE Rocuronium [place] [Zemuron] 50 mg .ROUTE .STK-MED ONE Succinylcholine [Quelicin] 200 mg IVP .STK-MED ONE 04/24/16 07:54 Etomidate [Amidate] 40 mg IVP .STK-MED ONE 04/24/16 07:59 FentaNYL (PF) 100 mcg .ROUTE .STK-MED ONE 04/24/16 08:00 FentaNYL (PF) 100 mcg .ROUTE .STK-MED ONE 04/24/16 08:01 Continuous pulse oximetry [RC] .ONCE Comment: Discharge from PACU when crite [RC] PROTOCOL Oxygen via nasal cannula Nasal Cannula 2 lpm Comment: Titrate O2 to main O2 sat greater than: 94% RT has an order or consult [RC] NOW Albuterol Neb [Proventil Neb] 2.5 mg IH ONCE ONE HYDROmorphone (PF) [Dilaudid] 0.5 mg IVP Q5MIN PRN OPTION # __ (1-5): 1 MAX DOSE ____(MG): 2 Metoprolol [Lopressor] 5 mg IVP Q5MIN PRN OPTION # __ (1-5): 1 MAX DOSE ____(MG): 10 Ondansetron [Zofran] 4 mg IVP ONCE ONE Promethazine [Phenergan] 6.25 mg IVP Q5MIN PRN 04/24/16 08:16 EPHEDrine 50 mg .ROUTE .STK-MED ONE Phenylephrine 10 mg .ROUTE .STK-MED ONE 04/24/16 08:25 Clindamycin 900 MG/50 ML [Cleocin 900 MG/50 ML] 900 mg in 50 ml IVPB As Directed 04/24/16 08:30 Clindamycin 600 MG/50 ML [Cleocin 600 MG/50 ML] 600 mg in 50 ml IVPB As Directed 04/24/16 09:05 Surgical Pathology [PTH] Routine Comment: Department: Surgical Pathology Specimen: Has been collected Specimen placed in fixative?: No DATE HOMA:: 04/24/16 PRE-OP DIAGNOSIS:: ischemic left leg POST-OP DIAGNOSIS:: same SPECIMEN & SITE: 1: left above knee amputation 04/24/16 09:23 Transfer Order [TRANSFER] Routine Comment: Patient Transfer: Telemetry 04/24/16 09:40 Neostigmine Methylsulfate 3 mg .ROUTE .STK-MED ONE 04/24/16 09:50 0.9 % Sodium Chloride 500 ml .ROUTE As Directed 04/24/16 10:00 POC Glucometer Test [POC] Routine 04/24/16 10:32 POC Glucometer Test [POC] Routine 04/24/16 10:33 Acetaminophen [Tylenol 650mg SUPP] 650 mg RC Q6HR PRN Acetaminophen [Tylenol] 650 mg PO Q6HR PRN D5% in 0.45% NACL [D5% And 0.45% Nacl 1000 Ml Bag] 1,000 ml IVC 60 mls/hr D5% in Water [Dextrose 5%] 1,000 ml IV CONT Dextrose 50 % in Water (Syg) [Dextrose 50% (Syg)] 25 ml IVP AD PRN Dextrose Gel [Gluctose] 15 gm PO ONCE PRN Dextrose Gel [Gluctose] 30 gm PO ONCE PRN Docusate [Colace] 100 mg PO BID PRN Glucagon, Human Recombinant [GlucaGen] 1 mg IM ONCE PRN HYDROmorphone (PF) [Dilaudid] 0.5 mg IVP Q5MIN PRN OPTION # __ (1-5): 1 MAX DOSE ____(MG): 2 LORazepam [Ativan] 0.5 mg PO BID PRN How will this medication be supplied?: Pharmacy to Subsitute Metoprolol [Lopressor] 5 mg IVP Q5MIN PRN OPTION # __ (1-5): 1 MAX DOSE ____(MG): 10 Metoprolol [Lopressor] 5 mg IVP Q6HR PRN Naloxone [Narcan] 0.4 mg IVP Q2MIN PRN Nitroglycerin 0.4 mg SL Q5MIN PRN Ondansetron [Zofran] 4 mg IVP ONCE ONE OxyCODONE Immed Rel [Roxicodone] 5 mg PO Q6HR PRN Promethazine [Phenergan] 6.25 mg IVP Q5MIN PRN Warfarin perPT [Coumadin perPT] 1 each PO DAILY@1800 PRN 04/24/16 10:56 Morphine [Morphine Sulfate] 4 mg IVP Q4HR PRN OxyCODONE/APAP 5/325 [Percocet 5/325] 1 each PO Q6HR PRN 04/24/16 11:30 Insulin LISPRO [HumaLOG] See Protocol SQ TIDAC 04/24/16 12:00 PT/INR [Prothrombin Time INR] [COAG] Stat Comment: Specimen: Send someone from the department to collect 04/24/16 13:00 Levofloxacin 500 MG/100 ML [Levaquin 500mg/100mL] 500 mg in 100 ml IVPB Q48H 04/24/16 16:00 MetroNIDAZOLE 500 MG/100 ML [Flagyl 500 MG/100 ML] 500 mg in 100 ml IVPB Q8HR 04/24/16 16:06 POC Glucometer Test [POC] Routine 04/24/16 20:28 POC Glucometer Test [POC] Routine 04/24/16 21:00 Insulin LISPRO [HumaLOG] See Protocol SQ HS Lactobacillus [Culturelle] 1 each PO BID Metoprolol [Lopressor] 50 mg PO BID Nystatin POWDER [Nystop] 1 appl TP BID Quetiapine Fumarate [SEROquel] 12.5 mg PO HS Rosuvastatin [Crestor] 20 mg PO HS 04/24/16 Lunch Diabetic Diet Diet Modifications: 04/25/16 04:21 BMP [Basic Metabolic Panel] AM 0400 Comment: Specimen: Send someone from the department to collect Complete Blood Count [HEME] AM 0400 Comment: Specimen: Send someone from the department to collect Hepatic Panel Routine PT/INR [Prothrombin Time INR] [COAG] AM 0400 Comment: Specimen: Send someone from the department to collect 04/25/16 07:10 POC Glucometer Test [POC] Routine 04/25/16 09:00 Amlodipine [Norvasc] 5 mg PO DAILY Aspirin 81 mg PO DAILY Isosorbide MONOnitrate (24 HR) [Imdur] 60 mg PO DAILY Levothyroxine [Synthroid] 200 mcg PO DAILY How will this medication be supplied?: Pharmacy to Subsitute Pantoprazole [Protonix] 40 mg IVP DAILY Paricalcitol [Zemplar] 1 mcg PO DAILY 04/25/16 11:37 POC Glucometer Test [POC] Routine 04/25/16 12:05 PT/INR [Prothrombin Time INR] [COAG] Routine Comment: Specimen: Send someone from the department to collect 04/25/16 12:35 Phytonadione [AquaMephyton] 2.5 mg SQ ONCE ONE 04/25/16 15:59 POC Glucometer Test [POC] Routine 04/25/16 20:00 POC Glucometer Test [POC] Routine 04/26/16 04:05 BMP [Basic Metabolic Panel] AM 0400 Comment: Specimen: Send someone from the department to collect PT/INR [Prothrombin Time INR] [COAG] AM 0400 Comment: Specimen: Send someone from the department to collect 04/26/16 07:26 POC Glucometer Test [POC] Routine 04/26/16 08:10 Consult to Nephrology [CONS] Stat Consulting Provider: Kidney [facility]ra/SANDRA/DEYSI/PRANAY Reason for Consult: LINDA, possible ATN with minimal urine output Call Completed: No 04/26/16 08:30 BMP [Basic Metabolic Panel] Stat Comment: Specimen: Send someone from the department to collect BNP [B-Type Natriuretic Peptide] Routine Comment: Specimen: Send someone from the department to collect Complete Blood Count [HEME] Stat Comment: Specimen: Send someone from the department to collect 04/26/16 09:15 UA w. reflex microscopic [Urinalysis reflex Microscopic] [URIN] Routine Comment: Specimen: Has been collected Urine Protein Creat Ratio [place] [UCHEM] Routine Comment: Specimen: Has been collected 04/26/16 09:20 D5% in 0.45% NACL [D5% And 0.45% Nacl 1000 Ml Bag] 1,000 ml IVC 100 mls/hr 04/26/16 11:00 Complement Component 3 Routine Comment: Specimen: Send someone from the department to collect Complement Component 4 Routine Comment: Specimen: Send someone from the department to collect 04/26/16 11:05 Consult to Occupational Therapy [CONS] Routine Comment: Evaluate, develop and implement POC Consult to Physical Therapy [CONS] Routine Comment: Evaluate, develop and implement POC 04/26/16 11:10 POC Glucometer Test [POC] Routine 04/26/16 15:21 Furosemide [Lasix] 40 mg 0.9 % Sodium Chloride 50 ml IVPB ONCE 04/26/16 16:03 POC Glucometer Test [POC] Routine 04/26/16 16:39 HYDROmorphone (PF) [Dilaudid] 0.5 mg IVP Q6HR PRN 04/26/16 19:59 POC Glucometer Test [POC] Routine 04/26/16 21:00 Furosemide [Lasix] 40 mg 0.9 % Sodium Chloride 50 ml IVPB BID 04/27/16 IR cvc insert non tunnel [IR] Routine Mode Of Transportation: Portable Reason For Exam: PERM Order Doctor: Trina Lobo IR us guide needle place [IR] Routine Mode Of Transportation: Portable Reason For Exam: PERM Order Doctor: Trina Lobo 04/27/16 04:18 VICTOR MANUEL IgG TATO rflx IFA AM 0400 Comment: Specimen: Send someone from the department to collect Albumin AM 0400 Comment: Specimen: Send someone from the department to collect BMP [Basic Metabolic Panel] AM 0400 Comment: Specimen: Send someone from the department to collect Creatine Kinase AM 0400 Comment: Specimen: Send someone from the department to collect Immunoelectrophoresis AM 0400 Comment: Specimen: Send someone from the department to collect Ionized Calcium AM 0400 Comment: Specimen: Send someone from the department to collect [place] Lambda Qnt FLC w Ratio AM 0400 Comment: Specimen: Send someone from the department to collect Magnesium AM 0400 Comment: Specimen: Send someone from the department to collect PT/INR [Prothrombin Time INR] [COAG] AM 0400 Comment: Specimen: Send someone from the department to collect Phosphorous AM 0400 Comment: Specimen: Send someone from the department to collect Uric Acid AM 0400 Comment: Specimen: Send someone from the department to collect 04/27/16 06:59 POC Glucometer Test [POC] Routine 04/27/16 07:55 CBC [Complete Blood Count] [HEME] Stat Comment: Specimen: Send someone from the department to collect 04/27/16 08:16 Consult to Interventional Radiology [CONS] Routine Consulting Provider: Radiology Interventional Cols Reason for Consult: Please evaluate for placement of a temporary HD catheter for HD initation in the LINDA setting. Call Completed: Yes 04/27/16 08:17 Hemodialysis Blood Flow Rate Routine Hemodialysis Blood Flow Rate (ml/min): 250 04/27/16 08:30 Dialysis Bath Order ONCE Comment: Bath: Potassium (mEq/L): 3 Bath: Calcium(mEq/L): 2.5 Bath: Sodium(mEq/L): 138 Bath: Bicarb (mEq/L): 35 Dialysis Ultrafiltration ONCE Ultrafiltration: Kgs off: 1.5 Hemodialysis Access for Treatment ONCE Hemodialysis Access for Treatment: Temp Dialysis Cath Fem Hemodialysis Heparinization ONCE Hemodialysis No Heparin: Yes Hemodialysis SBP/MAP ONCE Hemodialysis Keep SBP Greater Than: 90 Consult to Dialysis [CONS] ONCE Decrease UF Rate ONCE Comment: Dialysate Flow Rate ONCE Comment: Dialysate Flow Rate(mL/min): 400 Dialysate Temp ONCE Comment: DialysateTemp: 36 C Dialyzer ONCE Comment: Dialyzer: Hi-flux F180 Hemodialysis ONCE Comment: Hemodialysis for (hours): 2 04/27/16 08:38 Consult to Cardiology [CONS] Routine Comment: Consulting Provider: Cardiology [place] Reason for Consult: acute decomepnsated heart failure, anuria. Call Completed: No 04/27/16 09:27 0.9 % Sodium Chloride 2,000 ml .ROUTE As Directed 04/27/16 10:15 Hepatitis B Surface Antibody Stat Comment: Specimen: Send someone from the department to collect Hepatitis B Surface Antigen Stat Comment: Specimen: Send someone from the department to collect 04/27/16 11:20 POC Glucometer Test [POC] Routine 04/27/16 13:10 Heparin LOCK 500 unit .ROUTE .STK-MED ONE 04/27/16 13:12 Heparin 5,000 unit .ROUTE .STK-MED ONE 04/27/16 13:20 XR chest 1V portable [XR] Stat Mode Of Transportation: Portable Reason For Exam: line placement Order Doctor: Lianet Ball Exam Performed At:: [facility] 04/27/16 13:21 Central Line Cleared for Use [RC] NOW 04/27/16 17:00 Furosemide [Lasix] 40 mg IVP BIDDIURETIC 04/27/16 17:02 POC Glucometer Test [POC] Routine 04/27/16 21:14 POC Glucometer Test [POC] Routine 04/28/16 05:00 Basic Metabolic Panel AM 0400 Comment: Specimen: Send someone from the department to collect CBC [Complete Blood Count] [HEME] AM 0400 Comment: Specimen: Send someone from the department to collect PT/INR [Prothrombin Time INR] [COAG] AM 0400 Comment: Specimen: Send someone from the department to collect 04/28/16 07:49 POC Glucometer Test [POC] Routine 04/28/16 08:08 Hemodialysis Blood Flow Rate Routine Hemodialysis Blood Flow Rate (ml/min): 300 0.9 % Sodium Chloride 250 ml IVC 937.5 mls/hr Fistula Needle Insertion Routine 04/28/16 08:15 Dialysis Bath Order ONCE Comment: Bath: Potassium (mEq/L): 3 Bath: Calcium(mEq/L): 2.5 Bath: Sodium(mEq/L): 138 Bath: Bicarb (mEq/L): 35 Dialysis Ultrafiltration ONCE Ultrafiltration: Kgs off: 1.5 Hemodialysis Access for Treatment ONCE Hemodialysis Access for Treatment: Temp Dialysis Cath Fem Hemodialysis Heparinization ONCE Hemodialysis No Heparin: Yes Hemodialysis SBP/MAP ONCE Hemodialysis Keep SBP Greater Than: 90 Consult to Dialysis [CONS] ONCE Decrease UF Rate ONCE Comment: Dialysate Flow Rate ONCE Comment: Dialysate Flow Rate(mL/min): 500 Dialysate Temp ONCE Comment: DialysateTemp: 36 C Dialyzer ONCE Comment: Dialyzer: Hi-flux F180 Hemodialysis ONCE Comment: Hemodialysis for (hours): 2.5 04/28/16 09:00 Metoprolol XL (24 HR) Succ [Toprol XL] 100 mg PO DAILY 04/28/16 12:33 POC Glucometer Test [POC] Routine 04/28/16 16:59 POC Glucometer Test [POC] Routine 04/28/16 18:00 Warfarin [Coumadin] 1 mg PO 1800 ONE 04/28/16 20:32 POC Glucometer Test [POC] Routine 04/29/16 04:40 Albumin AM 0400 Comment: Specimen: Send someone from the department to collect Basic Metabolic Panel AM 0400 Comment: Specimen: Send someone from the department to collect Complete Blood Count [HEME] AM 0400 Comment: Specimen: Send someone from the department to collect PT/INR [Prothrombin Time INR] [COAG] AM 0400 Comment: Specimen: Send someone from the department to collect Phosphorous AM 0400 Comment: Specimen: Send someone from the department to collect 04/29/16 07:12 POC Glucometer Test [POC] Routine 04/29/16 08:21 Consult to Palliative Care [CONS] Routine Comment: Consulting Provider: Palliative Care [place] 04/29/16 08:24 CXR, portable [XR chest 1V portable] [XR] Routine Mode Of Transportation: Portable Reason For Exam: f/u Order Doctor: Cecy Claire Exam Performed At:: [facility] 04/29/16 11:24 POC Glucometer Test [POC] Routine 04/29/16 13:15 Anti-DNA DS, IgG with reflex Routine Comment: Specimen: Send someone from the department to collect GBM IgG by IFA and Mult Bead Routine Comment: Specimen: Send someone from the department to collect MPO/PR3 (ANCA) Antibodies Routine Comment: Specimen: Send someone from the department to collect 04/29/16 14:34 DNR [Resuscitation Status: Active] [RES] Routine Comment: Resuscitation Status: DNR-Comfort Care 04/29/16 15:22 Discharge Order [DISCHARGE] Routine Comment: 04/29/16 16:00 Heparin 5,000 unit SQ Q8HR 04/29/16 18:00 Warfarin [Coumadin] 1 mg PO 1800 ONE Vital Signs Temp Pulse Resp BP Pulse Ox 04/29/16 11:00 98.4 F 85 16 136/51 95 04/29/16 07:00 87 04/29/16 06:56 97.7 F 88 15 126/55 97 04/29/16 04:31 97.5 F L 89 16 130/58 91 L 04/29/16 03:20 87 04/29/16 01:16 98.0 F 93 20 130/58 91 L 04/29/16 00:40 85 04/28/16 19:57 98.0 F 81 20 136/65 96 04/28/16 16:51 98.1 F 81 18 129/56 94 L 04/28/16 15:53 82 04/28/16 12:35 97.4 F L 84 18 122/54 93 L 04/28/16 12:26 98.1 F 18 130/20 04/28/16 12:00 76 04/28/16 11:35 108/68 04/28/16 11:20 134/57 04/28/16 11:05 124/51 04/28/16 10:50 118/55 04/28/16 10:35 117/42 04/28/16 10:20 103/58 04/28/16 10:05 106/50 04/28/16 09:50 133/79 04/28/16 09:35 126/52 04/28/16 09:20 135/59 04/28/16 09:05 97.1 F L 22 145/62 04/28/16 08:00 69 04/28/16 07:35 97.9 F 64 20 129/66 90 L 04/28/16 05:11 97.4 F L 79 20 139/64 91 L 04/28/16 04:10 70 04/28/16 00:39 98.0 F 63 18 115/44 100 04/28/16 00:10 73 04/27/16 21:08 97.8 F 74 16 124/81 98 04/27/16 19:45 74 04/27/16 17:05 97.5 F L 74 18 108/66 94 L 04/27/16 12:08 97.5 F L 55 16 99/53 100 04/27/16 10:27 66 100 04/27/16 07:45 73 93 L 04/27/16 06:49 97.8 F 73 18 145/56 96 04/27/16 03:32 98.6 F 68 17 146/55 100 04/26/16 23:47 98.8 F 74 16 136/67 100 04/26/16 19:53 98.6 F 63 17 119/61 97 04/26/16 16:00 99.0 F 53 18 110/52 98 04/26/16 14:59 57 95 04/26/16 11:23 98.9 F 48 20 113/53 99 04/26/16 07:41 99 F 62 20 127/54 92 L 04/26/16 03:18 99.1 F 67 20 136/59 90 L 04/25/16 23:22 99.4 F 68 14 156/68 98 04/25/16 19:52 100.5 F H 78 20 153/59 96 04/25/16 15:26 100.1 F H 78 20 94/32 95 04/25/16 11:34 101.5 F H 67 16 109/58 94 L 04/25/16 07:04 98.2 F 78 18 107/61 94 L 04/25/16 03:58 98.1 F 75 20 122/42 99 04/24/16 23:57 97.7 F 72 18 120/66 99 04/24/16 20:26 98.0 F 70 16 95/52 100 04/24/16 16:03 97.6 F 64 16 119/49 100 04/24/16 15:28 68 04/24/16 10:44 62 04/24/16 10:31 97.9 F 62 18 131/61 92 L 04/24/16 10:18 98.9 F 64 20 140/55 94 L 04/24/16 10:08 70 14 143/50 94 L 17 09:58 68 16 144/58 97 04/24/16 09:48 99.2 F 62 16 138/60 98 04/24/16 03:24 99.6 F 74 24 127/65 100 17 23:54 100.0 F H 69 20 147/53 100 17 18:43 99.7 F H 81 16 148/61 96 1817 16:26 98.5 F 79 18 155/61 96 04/23/17 15:45 71 17 11:39 100.1 F H 71 16 162/60 92 L 04/23/16 11:15 71 17 07:42 98.2 F 66 18 117/63 97 17 07:30 66 04/23/16 04:25 98.2 F 72 18 134/54 96 04/22/16 23:42 99.0 F 70 18 144/94 96 04/22/16 23:08 98.8 F 67 20 136/57 97 04/22/17 19:04 98.4 F 79 20 144/67 98 17 15:21 55 04/22/16 15:09 98.3 F 60 16 137/36 99 17 11:45 94 04/22/16 11:19 98.7 F 94 14 95/44 99 04/22/16 10:43 77 04/22/16 07:20 100.1 F H 97 16 163/57 92 L 17 04:21 98.6 F 88 18 179/75 93 L 17 03:45 91 17/17 00:00 73 04/21/17 23:53 98.4 F 71 16 174/77 97 16/17 20:00 73 16/17 19:15 97.8 F 65 16 153/60 96 16/17 16:00 98.6 F 67 16 153/60 95 16/17 15:00 98.6 F 67 16 153/60 95 16/17 11:30 99.3 F 70 15 144/50 93 L 04/21/16 11:08 99.3 F 70 15 144/50 93 L 04/21/16 10:00 102.5 F H 62 16 148/53 100 04/21/16 07:30 100.8 F H 69 16 148/53 89 L 04/21/16 07:13 69 16 04/21/16 06:37 100.8 F H 148/53 89 L 04/20/16 23:10 98.6 F 81 22 147/60 99 04/20/16 19:38 101.9 F H 97 18 143/48 98 04/20/16 16:00 99.1 F 92 16 146/61 100 04/20/16 07:30 98.2 F 79 18 166/55 100 04/20/16 06:53 98.2 F 79 18 166/55 100 04/20/16 03:49 97.8 F 77 19 177/69 100 04/20/16 00:02 98.8 F 53 16 125/60 93 L 04/19/16 23:58 97 Laboratory Results 04/20/16 04/20/16 04/20/16 Range/Units 01:31 01:31 01:31 WBC 8.0 (4.3-11.1) K/mcL RBC 4.24 (3.82-4.97) M/mcL Hgb 10.3 L (11.5-15.4) g/dL Hct 35.4 (35.3-44.9) % MCV 83.5 (83.0-100.0) fL MCH 24.3 L (28.0-33.3) pg MCHC 29.1 L (31.6-35.5) g/dL RDW 20.5 H (11.5-14.5) % Plt Count 137 L (140-400) K/mcL MPV 11.2 (9.4-12.4) fL Immature Gran % 0.4 (0-4) % Seg Neutrophils % 85.6 % Band Neutrophils % (0-4) % Lymphocytes % 5.0 % Monocytes % 8.1 % Eosinophils % 0.3 % Basophils % 0.6 % Neutrophils # 6.8 (1.6-8.9) K/mcL Lymphocytes # 0.4 L (0.6-4.6) K/mcL Monocytes # 0.6 (0.0-1.3) K/mcL Eosinophils # 0.0 (0.0-0.6) K/mcL Basophils # 0.1 (0.0-0.2) K/mcL Reactive Lymphocytes (Not Present) Platelet Estimate (Normal) Immature Plt Fraction (1.1-6.1) % Polychromasia (Not Present) Poikilocytosis (Not Present) Anisocytosis (Not Present) Microcytosis (Not Present) Macrocytosis (Not Present) Ovalocytes (Not Present) ESR (0-15) mm/hr PT 30.2 H (9.4-12.1) Seconds INR 2.7 APTT TNP Fibrinogen (169-393) mg/dL D-Dimer (0-500) ng/mLFEU Heparin Anti-Xa, Unfract (0.30-0.70) IU/mL VBG pH (7.32-7.42) pH Units VBG pCO2 (41-51) mmHg VBG pO2 (25-40) mmHg VBG HCO3 (21-27) mEq/L Sodium (136-145) mEq/L Potassium (3.5-4.5) mEq/L Chloride (98-109) mEq/L Carbon Dioxide (19-29) mEq/L BUN (7-20) mg/dL Creatinine (0.57-1.11) mg/dL Est GFR ( Amer) (> 60) Est GFR (Non-Af Amer) (> 60) BUN/Creatinine Ratio (6-26) Glucose (70-99) mg/dL POC Glucose (58-89) Est Mean Plasma Glucose mg/dl Hemoglobin A1c ( - 5.6) % Calculated Osmolality (280-300) Lactic Acid (0.5-2.2) mmol/L Uric Acid (2.6-6.0) mg/dL Calcium (8.6-10.8) mg/dL Ionized Calcium (1.15-1.35) mmol/L Phosphorus (2.3-4.7) mg/dL Magnesium (1.6-2.6) mg/dL Total Bilirubin (0.2-1.2) mg/dL Direct Bilirubin (0.0-0.5) mg/dL Indirect Bilirubin (0.0-1.2) mg/dL AST (5-34) Units/L ALT (0-55) Units/L Alkaline Phosphatase (38-126) Units/L Creatine Kinase (29-168) Units/L Troponin I 2.24 H* (0-0.03) ng/mL C-Reactive Protein (Less than 5) mg/L B-Natriuretic Peptide (0-100) pg/mL Prot Electrophor EER Serum Total Protein (6.0-8.3) g/dL Total Protein (PEP) (6.00-8.30) g/dL Albumin (3.5-5.0) g/dL Albumin (PEP) (3.75-5.01) g/dL Globulin (2.4-3.5) g/dL Albumin/Globulin Ratio (1.1-2.2) Mxvdo-7-Towjzaevp (0.19-0.46) g/dL Yxptr-4-Ohvorflul (0.48-1.05) g/dL Beta Globulins (0.48-1.10) g/dL Gamma Globulins (0.62-1.51) g/dL PEP Interpretation Triglycerides (< 150) mg/dL Cholesterol (< 200) mg/dL LDL Cholesterol, Calc (0-99) mg/dL VLDL Cholesterol, Calc (< 31) mg/dL HDL Cholesterol (40-59) mg/dL Cholesterol/HDL Ratio (0-4.9) TSH (0.350-4.840) mcIU/mL Free T3 (1.71-3.71) pg/mL Serum Immunofix Reflex Urine Color (Yellow) Urine Clarity (Clear) Urine pH (5.0-8.0) pH Units Ur Specific [place] (1.010-1.025) Urine Protein (Neg-Trace) mg/dL Urine Glucose (UA) (Normal) mg/dL Urine Ketones (Negative) mg/dL Urine Blood (Negative) Urine Nitrite (Negative) Urine Bilirubin (Negative) Urine Urobilinogen (Normal) mg/dL Ur Leukocyte Esterase (Negative) Urine Microscopic RBC (0-3) per hpf Urine Microscopic WBC (0-3) per hpf Ur Squamous Epith Cells (None-Few) per lpf Urine Bacteria (None-Few) per hpf Hyaline Casts (None-Few) per lpf Urine Yeast (None Seen) per hpf Urine Creatinine mg/dL Protein/Creatinin Ratio (0-0.20) mg/mg Urine Total Protein (1-14) mg/dL Vancomycin Trough (10-20) mcg/mL Random Vancomycin mcg/mL Urine Opiates Screen (Pvpiol=674) ng/mL Ur Barbiturates Screen (Chrfyk=443) ng/mL Ur Phencyclidine Scrn (Cutoff=25) ng/mL Ur Amphetamines Screen (Gjlopi=6801) ng/mL U Benzodiazepines Scrn (Uvkxxk=705) ng/mL Urine Cocaine Screen (Cutoff= 300) ng/mL U Marijuana (THC) Screen (Cutoff = 50) ng/mL IgG (768-1632) mg/dL IgA (68-408) mg/dL IgM (35-263) mg/dL VICTOR MANUEL Screen (None Detected) VICTOR MANUEL Titer (<1:40) Myeloperoxidase Ab (0-19) AU/mL Anti-ds DNA IgG Ab (None Detected) Glomerular Base Mem IgG (0-19) AU/mL Glomer Base Mem IgG IFA (Negative) Serine Protease 3 Ab (0-19) AU/mL Complement C3 (88-201) mg/dL Complement C4 (10-40) mg/dL Free Trego LC, Quant (0.33-1.94) mg/dL Free Lambda LC, Quant (0.57-2.63) mg/dL Free Trego/Lambda Ratio (0.26-1.65) Hep Bs Antigen (Nonreactive) Hep Bs Antibody mIU/mL Specimen Rejected 04/20/16 04/20/16 04/20/16 Range/Units 01:31 01:31 01:31 WBC (4.3-11.1) K/mcL RBC (3.82-4.97) M/mcL Hgb (11.5-15.4) g/dL Hct (35.3-44.9) % MCV (83.0-100.0) fL MCH (28.0-33.3) pg MCHC (31.6-35.5) g/dL RDW (11.5-14.5) % Plt Count (140-400) K/mcL MPV (9.4-12.4) fL Immature Gran % (0-4) % Seg Neutrophils % % Band Neutrophils % (0-4) % Lymphocytes % % Monocytes % % Eosinophils % % Basophils % % Neutrophils # (1.6-8.9) K/mcL Lymphocytes # (0.6-4.6) K/mcL Monocytes # (0.0-1.3) K/mcL Eosinophils # (0.0-0.6) K/mcL Basophils # (0.0-0.2) K/mcL Reactive Lymphocytes (Not Present) Platelet Estimate (Normal) Immature Plt Fraction (1.1-6.1) % Polychromasia (Not Present) Poikilocytosis (Not Present) Anisocytosis (Not Present) Microcytosis (Not Present) Macrocytosis (Not Present) Ovalocytes (Not Present) ESR (0-15) mm/hr PT (9.4-12.1) Seconds INR APTT Fibrinogen (169-393) mg/dL D-Dimer (0-500) ng/mLFEU Heparin Anti-Xa, Unfract (0.30-0.70) IU/mL VBG pH (7.32-7.42) pH Units VBG pCO2 (41-51) mmHg VBG pO2 (25-40) mmHg VBG HCO3 (21-27) mEq/L Sodium 143 (136-145) mEq/L Potassium 3.9 (3.5-4.5) mEq/L Chloride 103 (98-109) mEq/L Carbon Dioxide 32 H (19-29) mEq/L BUN 27 H (7-20) mg/dL Creatinine 2.24 H (0.57-1.11) mg/dL Est GFR ( Amer) 26 L (> 60) Est GFR (Non-Af Amer) 21 L (> 60) BUN/Creatinine Ratio 12 (6-26) Glucose 95 (70-99) mg/dL POC Glucose (58-89) Est Mean Plasma Glucose 131 mg/dl Hemoglobin A1c 6.2 H ( - 5.6) % Calculated Osmolality 301 H (280-300) Lactic Acid (0.5-2.2) mmol/L Uric Acid (2.6-6.0) mg/dL Calcium 8.9 (8.6-10.8) mg/dL Ionized Calcium (1.15-1.35) mmol/L Phosphorus 3.8 (2.3-4.7) mg/dL Magnesium 1.5 L (1.6-2.6) mg/dL Total Bilirubin 0.7 (0.2-1.2) mg/dL Direct Bilirubin (0.0-0.5) mg/dL Indirect Bilirubin (0.0-1.2) mg/dL AST 23 (5-34) Units/L ALT 12 (0-55) Units/L Alkaline Phosphatase 101 (38-126) Units/L Creatine Kinase (29-168) Units/L Troponin I (0-0.03) ng/mL C-Reactive Protein (Less than 5) mg/L B-Natriuretic Peptide 2623 H (0-100) pg/mL Prot Electrophor EER Serum Total Protein 6.0 (6.0-8.3) g/dL Total Protein (PEP) (6.00-8.30) g/dL Albumin 2.1 L (3.5-5.0) g/dL Albumin (PEP) (3.75-5.01) g/dL Globulin 3.9 H (2.4-3.5) g/dL Albumin/Globulin Ratio 0.5 L (1.1-2.2) Rclnz-1-Sutkunipx (0.19-0.46) g/dL Msmxy-8-Wxailuzrp (0.48-1.05) g/dL Beta Globulins (0.48-1.10) g/dL Gamma Globulins (0.62-1.51) g/dL PEP Interpretation Triglycerides 81 (< 150) mg/dL Cholesterol 105 (< 200) mg/dL LDL Cholesterol, Calc 58 (0-99) mg/dL VLDL Cholesterol, Calc 16 (< 31) mg/dL HDL Cholesterol 31 L (40-59) mg/dL Cholesterol/HDL Ratio 3.4 (0-4.9) TSH 2.463 (0.350-4.840) mcIU/mL Free T3 (1.71-3.71) pg/mL Serum Immunofix Reflex Urine Color (Yellow) Urine Clarity (Clear) Urine pH (5.0-8.0) pH Units Ur Specific [place] (1.010-1.025) Urine Protein (Neg-Trace) mg/dL Urine Glucose (UA) (Normal) mg/dL Urine Ketones (Negative) mg/dL Urine Blood (Negative) Urine Nitrite (Negative) Urine Bilirubin (Negative) Urine Urobilinogen (Normal) mg/dL Ur Leukocyte Esterase (Negative) Urine Microscopic RBC (0-3) per hpf Urine Microscopic WBC (0-3) per hpf Ur Squamous Epith Cells (None-Few) per lpf Urine Bacteria (None-Few) per hpf Hyaline Casts (None-Few) per lpf Urine Yeast (None Seen) per hpf Urine Creatinine mg/dL Protein/Creatinin Ratio (0-0.20) mg/mg Urine Total Protein (1-14) mg/dL Vancomycin Trough (10-20) mcg/mL Random Vancomycin mcg/mL Urine Opiates Screen (Cecvtx=714) ng/mL Ur Barbiturates Screen (Uxhjxk=293) ng/mL Ur Phencyclidine Scrn (Cutoff=25) ng/mL Ur Amphetamines Screen (Bmmfgw=5417) ng/mL U Benzodiazepines Scrn (Fplbrh=708) ng/mL Urine Cocaine Screen (Cutoff= 300) ng/mL U Marijuana (THC) Screen (Cutoff = 50) ng/mL IgG (768-1632) mg/dL IgA (68-408) mg/dL IgM (35-263) mg/dL VICTOR MANUEL Screen (None Detected) VICTOR MANUEL Titer (<1:40) Myeloperoxidase Ab (0-19) AU/mL Anti-ds DNA IgG Ab (None Detected) Glomerular Base Mem IgG (0-19) AU/mL Glomer Base Mem IgG IFA (Negative) Serine Protease 3 Ab (0-19) AU/mL Complement C3 (88-201) mg/dL Complement C4 (10-40) mg/dL Free Trego LC, Quant (0.33-1.94) mg/dL Free Lambda LC, Quant (0.57-2.63) mg/dL Free Trego/Lambda Ratio (0.26-1.65) Hep Bs Antigen (Nonreactive) Hep Bs Antibody mIU/mL Specimen Rejected 04/20/16 04/20/16 04/20/16 Range/Units 02:34 02:35 07:07 WBC (4.3-11.1) K/mcL RBC (3.82-4.97) M/mcL Hgb (11.5-15.4) g/dL Hct (35.3-44.9) % MCV (83.0-100.0) fL MCH (28.0-33.3) pg MCHC (31.6-35.5) g/dL RDW (11.5-14.5) % Plt Count (140-400) K/mcL MPV (9.4-12.4) fL Immature Gran % (0-4) % Seg Neutrophils % % Band Neutrophils % (0-4) % Lymphocytes % % Monocytes % % Eosinophils % % Basophils % % Neutrophils # (1.6-8.9) K/mcL Lymphocytes # (0.6-4.6) K/mcL Monocytes # (0.0-1.3) K/mcL Eosinophils # (0.0-0.6) K/mcL Basophils # (0.0-0.2) K/mcL Reactive Lymphocytes (Not Present) Platelet Estimate (Normal) Immature Plt Fraction (1.1-6.1) % Polychromasia (Not Present) Poikilocytosis (Not Present) Anisocytosis (Not Present) Microcytosis (Not Present) Macrocytosis (Not Present) Ovalocytes (Not Present) ESR (0-15) mm/hr PT (9.4-12.1) Seconds INR APTT 245.2 H* D Fibrinogen (169-393) mg/dL D-Dimer (0-500) ng/mLFEU Heparin Anti-Xa, Unfract 0.61 (0.30-0.70) IU/mL VBG pH (7.32-7.42) pH Units VBG pCO2 (41-51) mmHg VBG pO2 (25-40) mmHg VBG HCO3 (21-27) mEq/L Sodium (136-145) mEq/L Potassium (3.5-4.5) mEq/L Chloride (98-109) mEq/L Carbon Dioxide (19-29) mEq/L BUN (7-20) mg/dL Creatinine (0.57-1.11) mg/dL Est GFR ( Amer) (> 60) Est GFR (Non-Af Amer) (> 60) BUN/Creatinine Ratio (6-26) Glucose (70-99) mg/dL POC Glucose 96 H 148 H (58-89) Est Mean Plasma Glucose mg/dl Hemoglobin A1c ( - 5.6) % Calculated Osmolality (280-300) Lactic Acid (0.5-2.2) mmol/L Uric Acid (2.6-6.0) mg/dL Calcium (8.6-10.8) mg/dL Ionized Calcium (1.15-1.35) mmol/L Phosphorus (2.3-4.7) mg/dL Magnesium (1.6-2.6) mg/dL Total Bilirubin (0.2-1.2) mg/dL Direct Bilirubin (0.0-0.5) mg/dL Indirect Bilirubin (0.0-1.2) mg/dL AST (5-34) Units/L ALT (0-55) Units/L Alkaline Phosphatase (38-126) Units/L Creatine Kinase (29-168) Units/L Troponin I (0-0.03) ng/mL C-Reactive Protein (Less than 5) mg/L B-Natriuretic Peptide (0-100) pg/mL Prot Electrophor EER Serum Total Protein (6.0-8.3) g/dL Total Protein (PEP) (6.00-8.30) g/dL Albumin (3.5-5.0) g/dL Albumin (PEP) (3.75-5.01) g/dL Globulin (2.4-3.5) g/dL Albumin/Globulin Ratio (1.1-2.2) Nztpr-0-Dsjidyrdf (0.19-0.46) g/dL Wpnsm-0-Gapazigen (0.48-1.05) g/dL Beta Globulins (0.48-1.10) g/dL Gamma Globulins (0.62-1.51) g/dL PEP Interpretation Triglycerides (< 150) mg/dL Cholesterol (< 200) mg/dL LDL Cholesterol, Calc (0-99) mg/dL VLDL Cholesterol, Calc (< 31) mg/dL HDL Cholesterol (40-59) mg/dL Cholesterol/HDL Ratio (0-4.9) TSH (0.350-4.840) mcIU/mL Free T3 (1.71-3.71) pg/mL Serum Immunofix Reflex Urine Color (Yellow) Urine Clarity (Clear) Urine pH (5.0-8.0) pH Units Ur Specific [place] (1.010-1.025) Urine Protein (Neg-Trace) mg/dL Urine Glucose (UA) (Normal) mg/dL Urine Ketones (Negative) mg/dL Urine Blood (Negative) Urine Nitrite (Negative) Urine Bilirubin (Negative) Urine Urobilinogen (Normal) mg/dL Ur Leukocyte Esterase (Negative) Urine Microscopic RBC (0-3) per hpf Urine Microscopic WBC (0-3) per hpf Ur Squamous Epith Cells (None-Few) per lpf Urine Bacteria (None-Few) per hpf Hyaline Casts (None-Few) per lpf Urine Yeast (None Seen) per hpf Urine Creatinine mg/dL Protein/Creatinin Ratio (0-0.20) mg/mg Urine Total Protein (1-14) mg/dL Vancomycin Trough (10-20) mcg/mL Random Vancomycin mcg/mL Urine Opiates Screen (Sykbrv=013) ng/mL Ur Barbiturates Screen (Jshbky=262) ng/mL Ur Phencyclidine Scrn (Cutoff=25) ng/mL Ur Amphetamines Screen (Zghvow=1678) ng/mL U Benzodiazepines Scrn (Jvhcld=361) ng/mL Urine Cocaine Screen (Cutoff= 300) ng/mL U Marijuana (THC) Screen (Cutoff = 50) ng/mL IgG (768-1632) mg/dL IgA (68-408) mg/dL IgM (35-263) mg/dL VICTOR MANUEL Screen (None Detected) VICTOR MANUEL Titer (<1:40) Myeloperoxidase Ab (0-19) AU/mL Anti-ds DNA IgG Ab (None Detected) Glomerular Base Mem IgG (0-19) AU/mL Glomer Base Mem IgG IFA (Negative) Serine Protease 3 Ab (0-19) AU/mL Complement C3 (88-201) mg/dL Complement C4 (10-40) mg/dL Free Trego LC, Quant (0.33-1.94) mg/dL Free Lambda LC, Quant (0.57-2.63) mg/dL Free Trego/Lambda Ratio (0.26-1.65) Hep Bs Antigen (Nonreactive) Hep Bs Antibody mIU/mL Specimen Rejected 04/20/16 04/20/16 04/20/16 Range/Units 09:50 09:50 09:50 WBC (4.3-11.1) K/mcL RBC (3.82-4.97) M/mcL Hgb (11.5-15.4) g/dL Hct (35.3-44.9) % MCV (83.0-100.0) fL MCH (28.0-33.3) pg MCHC (31.6-35.5) g/dL RDW (11.5-14.5) % Plt Count (140-400) K/mcL MPV (9.4-12.4) fL Immature Gran % (0-4) % Seg Neutrophils % % Band Neutrophils % (0-4) % Lymphocytes % % Monocytes % % Eosinophils % % Basophils % % Neutrophils # (1.6-8.9) K/mcL Lymphocytes # (0.6-4.6) K/mcL Monocytes # (0.0-1.3) K/mcL Eosinophils # (0.0-0.6) K/mcL Basophils # (0.0-0.2) K/mcL Reactive Lymphocytes (Not Present) Platelet Estimate (Normal) Immature Plt Fraction (1.1-6.1) % Polychromasia (Not Present) Poikilocytosis (Not Present) Anisocytosis (Not Present) Microcytosis (Not Present) Macrocytosis (Not Present) Ovalocytes (Not Present) ESR (0-15) mm/hr PT (9.4-12.1) Seconds INR APTT 123.8 H* Fibrinogen 537 H (169-393) mg/dL D-Dimer 723 H (0-500) ng/mLFEU Heparin Anti-Xa, Unfract TNP (0.30-0.70) IU/mL VBG pH (7.32-7.42) pH Units VBG pCO2 (41-51) mmHg VBG pO2 (25-40) mmHg VBG HCO3 (21-27) mEq/L Sodium (136-145) mEq/L Potassium (3.5-4.5) mEq/L Chloride (98-109) mEq/L Carbon Dioxide (19-29) mEq/L BUN (7-20) mg/dL Creatinine (0.57-1.11) mg/dL Est GFR ( Amer) (> 60) Est GFR (Non-Af Amer) (> 60) BUN/Creatinine Ratio (6-26) Glucose (70-99) mg/dL POC Glucose (58-89) Est Mean Plasma Glucose mg/dl Hemoglobin A1c ( - 5.6) % Calculated Osmolality (280-300) Lactic Acid 1.0 (0.5-2.2) mmol/L Uric Acid (2.6-6.0) mg/dL Calcium (8.6-10.8) mg/dL Ionized Calcium (1.15-1.35) mmol/L Phosphorus (2.3-4.7) mg/dL Magnesium (1.6-2.6) mg/dL Total Bilirubin (0.2-1.2) mg/dL Direct Bilirubin (0.0-0.5) mg/dL Indirect Bilirubin (0.0-1.2) mg/dL AST (5-34) Units/L ALT (0-55) Units/L Alkaline Phosphatase (38-126) Units/L Creatine Kinase (29-168) Units/L Troponin I 1.20 H* (0-0.03) ng/mL C-Reactive Protein (Less than 5) mg/L B-Natriuretic Peptide (0-100) pg/mL Prot Electrophor EER Serum Total Protein (6.0-8.3) g/dL Total Protein (PEP) (6.00-8.30) g/dL Albumin (3.5-5.0) g/dL Albumin (PEP) (3.75-5.01) g/dL Globulin (2.4-3.5) g/dL Albumin/Globulin Ratio (1.1-2.2) Lppoi-0-Bklbeptvz (0.19-0.46) g/dL Qotqq-7-Uwgdozzoz (0.48-1.05) g/dL Beta Globulins (0.48-1.10) g/dL Gamma Globulins (0.62-1.51) g/dL PEP Interpretation Triglycerides (< 150) mg/dL Cholesterol (< 200) mg/dL LDL Cholesterol, Calc (0-99) mg/dL VLDL Cholesterol, Calc (< 31) mg/dL HDL Cholesterol (40-59) mg/dL Cholesterol/HDL Ratio (0-4.9) TSH (0.350-4.840) mcIU/mL Free T3 (1.71-3.71) pg/mL Serum Immunofix Reflex Urine Color (Yellow) Urine Clarity (Clear) Urine pH (5.0-8.0) pH Units Ur Specific [place] (1.010-1.025) Urine Protein (Neg-Trace) mg/dL Urine Glucose (UA) (Normal) mg/dL Urine Ketones (Negative) mg/dL Urine Blood (Negative) Urine Nitrite (Negative) Urine Bilirubin (Negative) Urine Urobilinogen (Normal) mg/dL Ur Leukocyte Esterase (Negative) Urine Microscopic RBC (0-3) per hpf Urine Microscopic WBC (0-3) per hpf Ur Squamous Epith Cells (None-Few) per lpf Urine Bacteria (None-Few) per hpf Hyaline Casts (None-Few) per lpf Urine Yeast (None Seen) per hpf Urine Creatinine mg/dL Protein/Creatinin Ratio (0-0.20) mg/mg Urine Total Protein (1-14) mg/dL Vancomycin Trough (10-20) mcg/mL Random Vancomycin mcg/mL Urine Opiates Screen (Rqcnko=645) ng/mL Ur Barbiturates Screen (Lnhhuc=034) ng/mL Ur Phencyclidine Scrn (Cutoff=25) ng/mL Ur Amphetamines Screen (Fxrcuc=5794) ng/mL U Benzodiazepines Scrn (Ldiiaa=916) ng/mL Urine Cocaine Screen (Cutoff= 300) ng/mL U Marijuana (THC) Screen (Cutoff = 50) ng/mL IgG (768-1632) mg/dL IgA (68-408) mg/dL IgM (35-263) mg/dL VICTOR MANUEL Screen (None Detected) VICTOR MANUEL Titer (<1:40) Myeloperoxidase Ab (0-19) AU/mL Anti-ds DNA IgG Ab (None Detected) Glomerular Base Mem IgG (0-19) AU/mL Glomer Base Mem IgG IFA (Negative) Serine Protease 3 Ab (0-19) AU/mL Complement C3 (88-201) mg/dL Complement C4 (10-40) mg/dL Free Trego LC, Quant (0.33-1.94) mg/dL Free Lambda LC, Quant (0.57-2.63) mg/dL Free Trego/Lambda Ratio (0.26-1.65) Hep Bs Antigen (Nonreactive) Hep Bs Antibody mIU/mL Specimen Rejected 04/20/16 04/20/16 04/20/16 Range/Units 09:50 09:50 09:50 WBC (4.3-11.1) K/mcL RBC (3.82-4.97) M/mcL Hgb (11.5-15.4) g/dL Hct (35.3-44.9) % MCV (83.0-100.0) fL MCH (28.0-33.3) pg MCHC (31.6-35.5) g/dL RDW (11.5-14.5) % Plt Count (140-400) K/mcL MPV (9.4-12.4) fL Immature Gran % (0-4) % Seg Neutrophils % % Band Neutrophils % (0-4) % Lymphocytes % % Monocytes % % Eosinophils % % Basophils % % Neutrophils # (1.6-8.9) K/mcL Lymphocytes # (0.6-4.6) K/mcL Monocytes # (0.0-1.3) K/mcL Eosinophils # (0.0-0.6) K/mcL Basophils # (0.0-0.2) K/mcL Reactive Lymphocytes (Not Present) Platelet Estimate (Normal) Immature Plt Fraction (1.1-6.1) % Polychromasia (Not Present) Poikilocytosis (Not Present) Anisocytosis (Not Present) Microcytosis (Not Present) Macrocytosis (Not Present) Ovalocytes (Not Present) ESR 83 H (0-15) mm/hr PT (9.4-12.1) Seconds INR APTT Fibrinogen (169-393) mg/dL D-Dimer (0-500) ng/mLFEU Heparin Anti-Xa, Unfract (0.30-0.70) IU/mL VBG pH 7.43 H (7.32-7.42) pH Units VBG pCO2 54 H (41-51) mmHg VBG pO2 46 H (25-40) mmHg VBG HCO3 35.8 H (21-27) mEq/L Sodium (136-145) mEq/L Potassium (3.5-4.5) mEq/L Chloride (98-109) mEq/L Carbon Dioxide (19-29) mEq/L BUN (7-20) mg/dL Creatinine (0.57-1.11) mg/dL Est GFR ( Amer) (> 60) Est GFR (Non-Af Amer) (> 60) BUN/Creatinine Ratio (6-26) Glucose (70-99) mg/dL POC Glucose (58-89) Est Mean Plasma Glucose mg/dl Hemoglobin A1c ( - 5.6) % Calculated Osmolality (280-300) Lactic Acid (0.5-2.2) mmol/L Uric Acid (2.6-6.0) mg/dL Calcium (8.6-10.8) mg/dL Ionized Calcium (1.15-1.35) mmol/L Phosphorus (2.3-4.7) mg/dL Magnesium (1.6-2.6) mg/dL Total Bilirubin (0.2-1.2) mg/dL Direct Bilirubin (0.0-0.5) mg/dL Indirect Bilirubin (0.0-1.2) mg/dL AST (5-34) Units/L ALT (0-55) Units/L Alkaline Phosphatase (38-126) Units/L Creatine Kinase (29-168) Units/L Troponin I (0-0.03) ng/mL C-Reactive Protein 91 H (Less than 5) mg/L B-Natriuretic Peptide (0-100) pg/mL Prot Electrophor EER Serum Total Protein (6.0-8.3) g/dL Total Protein (PEP) (6.00-8.30) g/dL Albumin (3.5-5.0) g/dL Albumin (PEP) (3.75-5.01) g/dL Globulin (2.4-3.5) g/dL Albumin/Globulin Ratio (1.1-2.2) Mtjju-5-Bpdcufxdt (0.19-0.46) g/dL Prqmh-0-Ecfverfvo (0.48-1.05) g/dL Beta Globulins (0.48-1.10) g/dL Gamma Globulins (0.62-1.51) g/dL PEP Interpretation Triglycerides (< 150) mg/dL Cholesterol (< 200) mg/dL LDL Cholesterol, Calc (0-99) mg/dL VLDL Cholesterol, Calc (< 31) mg/dL HDL Cholesterol (40-59) mg/dL Cholesterol/HDL Ratio (0-4.9) TSH (0.350-4.840) mcIU/mL Free T3 (1.71-3.71) pg/mL Serum Immunofix Reflex Urine Color (Yellow) Urine Clarity (Clear) Urine pH (5.0-8.0) pH Units Ur Specific [place] (1.010-1.025) Urine Protein (Neg-Trace) mg/dL Urine Glucose (UA) (Normal) mg/dL Urine Ketones (Negative) mg/dL Urine Blood (Negative) Urine Nitrite (Negative) Urine Bilirubin (Negative) Urine Urobilinogen (Normal) mg/dL Ur Leukocyte Esterase (Negative) Urine Microscopic RBC (0-3) per hpf Urine Microscopic WBC (0-3) per hpf Ur Squamous Epith Cells (None-Few) per lpf Urine Bacteria (None-Few) per hpf Hyaline Casts (None-Few) per lpf Urine Yeast (None Seen) per hpf Urine Creatinine mg/dL Protein/Creatinin Ratio (0-0.20) mg/mg Urine Total Protein (1-14) mg/dL Vancomycin Trough (10-20) mcg/mL Random Vancomycin mcg/mL Urine Opiates Screen (Tnmvla=524) ng/mL Ur Barbiturates Screen (Oasiid=950) ng/mL Ur Phencyclidine Scrn (Cutoff=25) ng/mL Ur Amphetamines Screen (Lndllb=1392) ng/mL U Benzodiazepines Scrn (Gzvlog=424) ng/mL Urine Cocaine Screen (Cutoff= 300) ng/mL U Marijuana (THC) Screen (Cutoff = 50) ng/mL IgG (768-1632) mg/dL IgA (68-408) mg/dL IgM (35-263) mg/dL VICTOR MANUEL Screen (None Detected) VICTOR MANUEL Titer (<1:40) Myeloperoxidase Ab (0-19) AU/mL Anti-ds DNA IgG Ab (None Detected) Glomerular Base Mem IgG (0-19) AU/mL Glomer Base Mem IgG IFA (Negative) Serine Protease 3 Ab (0-19) AU/mL Complement C3 (88-201) mg/dL Complement C4 (10-40) mg/dL Free Trego LC, Quant (0.33-1.94) mg/dL Free Lambda LC, Quant (0.57-2.63) mg/dL Free Trego/Lambda Ratio (0.26-1.65) Hep Bs Antigen (Nonreactive) Hep Bs Antibody mIU/mL Specimen Rejected 04/20/16 04/20/16 04/20/16 Range/Units 09:50 11:00 12:30 WBC (4.3-11.1) K/mcL RBC (3.82-4.97) M/mcL Hgb (11.5-15.4) g/dL Hct (35.3-44.9) % MCV (83.0-100.0) fL MCH (28.0-33.3) pg MCHC (31.6-35.5) g/dL RDW (11.5-14.5) % Plt Count (140-400) K/mcL MPV (9.4-12.4) fL Immature Gran % (0-4) % Seg Neutrophils % % Band Neutrophils % (0-4) % Lymphocytes % % Monocytes % % Eosinophils % % Basophils % % Neutrophils # (1.6-8.9) K/mcL Lymphocytes # (0.6-4.6) K/mcL Monocytes # (0.0-1.3) K/mcL Eosinophils # (0.0-0.6) K/mcL Basophils # (0.0-0.2) K/mcL Reactive Lymphocytes (Not Present) Platelet Estimate (Normal) Immature Plt Fraction (1.1-6.1) % Polychromasia (Not Present) Poikilocytosis (Not Present) Anisocytosis (Not Present) Microcytosis (Not Present) Macrocytosis (Not Present) Ovalocytes (Not Present) ESR (0-15) mm/hr PT (9.4-12.1) Seconds INR APTT Fibrinogen (169-393) mg/dL D-Dimer (0-500) ng/mLFEU Heparin Anti-Xa, Unfract (0.30-0.70) IU/mL VBG pH (7.32-7.42) pH Units VBG pCO2 (41-51) mmHg VBG pO2 (25-40) mmHg VBG HCO3 (21-27) mEq/L Sodium (136-145) mEq/L Potassium (3.5-4.5) mEq/L Chloride (98-109) mEq/L Carbon Dioxide (19-29) mEq/L BUN (7-20) mg/dL Creatinine (0.57-1.11) mg/dL Est GFR ( Amer) (> 60) Est GFR (Non-Af Amer) (> 60) BUN/Creatinine Ratio (6-26) Glucose (70-99) mg/dL POC Glucose (58-89) Est Mean Plasma Glucose mg/dl Hemoglobin A1c ( - 5.6) % Calculated Osmolality (280-300) Lactic Acid (0.5-2.2) mmol/L Uric Acid (2.6-6.0) mg/dL Calcium (8.6-10.8) mg/dL Ionized Calcium (1.15-1.35) mmol/L Phosphorus (2.3-4.7) mg/dL Magnesium (1.6-2.6) mg/dL Total Bilirubin (0.2-1.2) mg/dL Direct Bilirubin (0.0-0.5) mg/dL Indirect Bilirubin (0.0-1.2) mg/dL AST (5-34) Units/L ALT (0-55) Units/L Alkaline Phosphatase (38-126) Units/L Creatine Kinase (29-168) Units/L Troponin I (0-0.03) ng/mL C-Reactive Protein (Less than 5) mg/L B-Natriuretic Peptide (0-100) pg/mL Prot Electrophor EER Serum Total Protein (6.0-8.3) g/dL Total Protein (PEP) (6.00-8.30) g/dL Albumin (3.5-5.0) g/dL Albumin (PEP) (3.75-5.01) g/dL Globulin (2.4-3.5) g/dL Albumin/Globulin Ratio (1.1-2.2) Omeph-5-Kollnqucc (0.19-0.46) g/dL Sjbtn-4-Dytfjolfw (0.48-1.05) g/dL Beta Globulins (0.48-1.10) g/dL Gamma Globulins (0.62-1.51) g/dL PEP Interpretation Triglycerides (< 150) mg/dL Cholesterol (< 200) mg/dL LDL Cholesterol, Calc (0-99) mg/dL VLDL Cholesterol, Calc (< 31) mg/dL HDL Cholesterol (40-59) mg/dL Cholesterol/HDL Ratio (0-4.9) TSH 1.594 (0.350-4.840) mcIU/mL Free T3 1.38 L (1.71-3.71) pg/mL Serum Immunofix Reflex Urine Color Yellow (Yellow) Urine Clarity Clear (Clear) Urine pH 6.0 (5.0-8.0) pH Units Ur Specific [place] 1.018 (1.010-1.025) Urine Protein 100 H (Neg-Trace) mg/dL Urine Glucose (UA) Normal (Normal) mg/dL Urine Ketones Negative (Negative) mg/dL Urine Blood Small H (Negative) Urine Nitrite Negative (Negative) Urine Bilirubin Negative (Negative) Urine Urobilinogen Normal (Normal) mg/dL Ur Leukocyte Esterase Trace H (Negative) Urine Microscopic RBC 3-5 H (0-3) per hpf Urine Microscopic WBC 5-15 H (0-3) per hpf Ur Squamous Epith Cells Few (None-Few) per lpf Urine Bacteria Few (None-Few) per hpf Hyaline Casts Many H (None-Few) per lpf Urine Yeast (None Seen) per hpf Urine Creatinine mg/dL Protein/Creatinin Ratio (0-0.20) mg/mg Urine Total Protein (1-14) mg/dL Vancomycin Trough (10-20) mcg/mL Random Vancomycin mcg/mL Urine Opiates Screen Positive H (Uiulal=896) ng/mL Ur Barbiturates Screen Negative (Jprdti=753) ng/mL Ur Phencyclidine Scrn Negative (Cutoff=25) ng/mL Ur Amphetamines Screen Negative (Dhlueh=3465) ng/mL U Benzodiazepines Scrn Negative (Lhmpxo=818) ng/mL Urine Cocaine Screen Negative (Cutoff= 300) ng/mL U Marijuana (THC) Screen Negative (Cutoff = 50) ng/mL IgG (768-1632) mg/dL IgA (68-408) mg/dL IgM (35-263) mg/dL VICTOR MANUEL Screen (None Detected) VICTOR MANUEL Titer (<1:40) Myeloperoxidase Ab (0-19) AU/mL Anti-ds DNA IgG Ab (None Detected) Glomerular Base Mem IgG (0-19) AU/mL Glomer Base Mem IgG IFA (Negative) Serine Protease 3 Ab (0-19) AU/mL Complement C3 (88-201) mg/dL Complement C4 (10-40) mg/dL Free [place] LC, Quant (0.33-1.94) mg/dL Free Lambda LC, Quant (0.57-2.63) mg/dL Free Trego/Lambda Ratio (0.26-1.65) Hep Bs Antigen (Nonreactive) Hep Bs Antibody mIU/mL Specimen Rejected 04/20/16 04/20/16 04/20/16 Range/Units 17:30 17:30 17:30 WBC (4.3-11.1) K/mcL RBC (3.82-4.97) M/mcL Hgb (11.5-15.4) g/dL Hct (35.3-44.9) % MCV (83.0-100.0) fL MCH (28.0-33.3) pg MCHC (31.6-35.5) g/dL RDW (11.5-14.5) % Plt Count (140-400) K/mcL MPV (9.4-12.4) fL Immature Gran % (0-4) % Seg Neutrophils % % Band Neutrophils % (0-4) % Lymphocytes % % Monocytes % % Eosinophils % % Basophils % % Neutrophils # (1.6-8.9) K/mcL Lymphocytes # (0.6-4.6) K/mcL Monocytes # (0.0-1.3) K/mcL Eosinophils # (0.0-0.6) K/mcL Basophils # (0.0-0.2) K/mcL Reactive Lymphocytes (Not Present) Platelet Estimate (Normal) Immature Plt Fraction (1.1-6.1) % Polychromasia (Not Present) Poikilocytosis (Not Present) Anisocytosis (Not Present) Microcytosis (Not Present) Macrocytosis (Not Present) Ovalocytes (Not Present) ESR (0-15) mm/hr PT (9.4-12.1) Seconds INR APTT Fibrinogen (169-393) mg/dL D-Dimer (0-500) ng/mLFEU Heparin Anti-Xa, Unfract (0.30-0.70) IU/mL VBG pH (7.32-7.42) pH Units VBG pCO2 (41-51) mmHg VBG pO2 (25-40) mmHg VBG HCO3 (21-27) mEq/L Sodium (136-145) mEq/L Potassium (3.5-4.5) mEq/L Chloride (98-109) mEq/L Carbon Dioxide (19-29) mEq/L BUN (7-20) mg/dL Creatinine (0.57-1.11) mg/dL Est GFR ( Amer) (> 60) Est GFR (Non-Af Amer) (> 60) BUN/Creatinine Ratio (6-26) Glucose (70-99) mg/dL POC Glucose (58-89) Est Mean Plasma Glucose mg/dl Hemoglobin A1c ( - 5.6) % Calculated Osmolality (280-300) Lactic Acid 1.4 (0.5-2.2) mmol/L Uric Acid (2.6-6.0) mg/dL Calcium (8.6-10.8) mg/dL Ionized Calcium (1.15-1.35) mmol/L Phosphorus (2.3-4.7) mg/dL Magnesium (1.6-2.6) mg/dL Total Bilirubin (0.2-1.2) mg/dL Direct Bilirubin (0.0-0.5) mg/dL Indirect Bilirubin (0.0-1.2) mg/dL AST (5-34) Units/L ALT (0-55) Units/L Alkaline Phosphatase (38-126) Units/L Creatine Kinase (29-168) Units/L Troponin I 0.69 H* (0-0.03) ng/mL C-Reactive Protein (Less than 5) mg/L B-Natriuretic Peptide (0-100) pg/mL Prot Electrophor EER Serum Total Protein (6.0-8.3) g/dL Total Protein (PEP) (6.00-8.30) g/dL Albumin (3.5-5.0) g/dL Albumin (PEP) (3.75-5.01) g/dL Globulin (2.4-3.5) g/dL Albumin/Globulin Ratio (1.1-2.2) Lhqpj-4-Pnkgbygqw (0.19-0.46) g/dL Lxxop-5-Okjrenodp (0.48-1.05) g/dL Beta Globulins (0.48-1.10) g/dL Gamma Globulins (0.62-1.51) g/dL PEP Interpretation Triglycerides (< 150) mg/dL Cholesterol (< 200) mg/dL LDL Cholesterol, Calc (0-99) mg/dL VLDL Cholesterol, Calc (< 31) mg/dL HDL Cholesterol (40-59) mg/dL Cholesterol/HDL Ratio (0-4.9) TSH (0.350-4.840) mcIU/mL Free T3 (1.71-3.71) pg/mL Serum Immunofix Reflex Urine Color (Yellow) Urine Clarity (Clear) Urine pH (5.0-8.0) pH Units Ur Specific [place] (1.010-1.025) Urine Protein (Neg-Trace) mg/dL Urine Glucose (UA) (Normal) mg/dL Urine Ketones (Negative) mg/dL Urine Blood (Negative) Urine Nitrite (Negative) Urine Bilirubin (Negative) Urine Urobilinogen (Normal) mg/dL Ur Leukocyte Esterase (Negative) Urine Microscopic RBC (0-3) per hpf Urine Microscopic WBC (0-3) per hpf Ur Squamous Epith Cells (None-Few) per lpf Urine Bacteria (None-Few) per hpf Hyaline Casts (None-Few) per lpf Urine Yeast (None Seen) per hpf Urine Creatinine mg/dL Protein/Creatinin Ratio (0-0.20) mg/mg Urine Total Protein (1-14) mg/dL Vancomycin Trough (10-20) mcg/mL Random Vancomycin 4.2 mcg/mL Urine Opiates Screen (Axljtr=418) ng/mL Ur Barbiturates Screen (Hlmyoz=200) ng/mL Ur Phencyclidine Scrn (Cutoff=25) ng/mL Ur Amphetamines Screen (Gxtovr=4759) ng/mL U Benzodiazepines Scrn (Ffesfg=061) ng/mL Urine Cocaine Screen (Cutoff= 300) ng/mL U Marijuana (THC) Screen (Cutoff = 50) ng/mL IgG (768-1632) mg/dL IgA (68-408) mg/dL IgM (35-263) mg/dL VICTOR MANUEL Screen (None Detected) VICTOR MANUEL Titer (<1:40) Myeloperoxidase Ab (0-19) AU/mL Anti-ds DNA IgG Ab (None Detected) Glomerular Base Mem IgG (0-19) AU/mL Glomer Base Mem IgG IFA (Negative) Serine Protease 3 Ab (0-19) AU/mL Complement C3 (88-201) mg/dL Complement C4 (10-40) mg/dL Free Trego LC, Quant (0.33-1.94) mg/dL Free Lambda LC, Quant (0.57-2.63) mg/dL Free Trego/Lambda Ratio (0.26-1.65) Hep Bs Antigen (Nonreactive) Hep Bs Antibody mIU/mL Specimen Rejected 04/20/16 04/21/16 04/21/16 Range/Units 19:47 04:30 04:30 WBC 7.1 (4.3-11.1) K/mcL RBC 4.41 (3.82-4.97) M/mcL Hgb 10.6 L (11.5-15.4) g/dL Hct 36.1 (35.3-44.9) % MCV 81.9 L (83.0-100.0) fL MCH 24.0 L (28.0-33.3) pg MCHC 29.4 L (31.6-35.5) g/dL RDW 20.2 H (11.5-14.5) % Plt Count 155 (140-400) K/mcL MPV 11.4 (9.4-12.4) fL Immature Gran % 0.4 (0-4) % Seg Neutrophils % 82.1 % Band Neutrophils % (0-4) % Lymphocytes % 5.7 % Monocytes % 10.8 % Eosinophils % 0.6 % Basophils % 0.4 % Neutrophils # 5.8 (1.6-8.9) K/mcL Lymphocytes # 0.4 L (0.6-4.6) K/mcL Monocytes # 0.8 (0.0-1.3) K/mcL Eosinophils # 0.0 (0.0-0.6) K/mcL Basophils # 0.0 (0.0-0.2) K/mcL Reactive Lymphocytes (Not Present) Platelet Estimate (Normal) Immature Plt Fraction (1.1-6.1) % Polychromasia (Not Present) Poikilocytosis (Not Present) Anisocytosis (Not Present) Microcytosis (Not Present) Macrocytosis (Not Present) Ovalocytes (Not Present) ESR (0-15) mm/hr PT 37.6 H (9.4-12.1) Seconds INR 3.4 APTT 40.0 H D Fibrinogen (169-393) mg/dL D-Dimer (0-500) ng/mLFEU Heparin Anti-Xa, Unfract (0.30-0.70) IU/mL VBG pH (7.32-7.42) pH Units VBG pCO2 (41-51) mmHg VBG pO2 (25-40) mmHg VBG HCO3 (21-27) mEq/L Sodium (136-145) mEq/L Potassium (3.5-4.5) mEq/L Chloride (98-109) mEq/L Carbon Dioxide (19-29) mEq/L BUN (7-20) mg/dL Creatinine (0.57-1.11) mg/dL Est GFR ( Amer) (> 60) Est GFR (Non-Af Amer) (> 60) BUN/Creatinine Ratio (6-26) Glucose (70-99) mg/dL POC Glucose 149 H (58-89) Est Mean Plasma Glucose mg/dl Hemoglobin A1c ( - 5.6) % Calculated Osmolality (280-300) Lactic Acid (0.5-2.2) mmol/L Uric Acid (2.6-6.0) mg/dL Calcium (8.6-10.8) mg/dL Ionized Calcium (1.15-1.35) mmol/L Phosphorus (2.3-4.7) mg/dL Magnesium (1.6-2.6) mg/dL Total Bilirubin (0.2-1.2) mg/dL Direct Bilirubin (0.0-0.5) mg/dL Indirect Bilirubin (0.0-1.2) mg/dL AST (5-34) Units/L ALT (0-55) Units/L Alkaline Phosphatase (38-126) Units/L Creatine Kinase (29-168) Units/L Troponin I (0-0.03) ng/mL C-Reactive Protein (Less than 5) mg/L B-Natriuretic Peptide (0-100) pg/mL Prot Electrophor EER Serum Total Protein (6.0-8.3) g/dL Total Protein (PEP) (6.00-8.30) g/dL Albumin (3.5-5.0) g/dL Albumin (PEP) (3.75-5.01) g/dL Globulin (2.4-3.5) g/dL Albumin/Globulin Ratio (1.1-2.2) Qsury-7-Cblpwyqex (0.19-0.46) g/dL Oapxr-3-Hyugypggr (0.48-1.05) g/dL Beta Globulins (0.48-1.10) g/dL Gamma Globulins (0.62-1.51) g/dL PEP Interpretation Triglycerides (< 150) mg/dL Cholesterol (< 200) mg/dL LDL Cholesterol, Calc (0-99) mg/dL VLDL Cholesterol, Calc (< 31) mg/dL HDL Cholesterol (40-59) mg/dL Cholesterol/HDL Ratio (0-4.9) TSH (0.350-4.840) mcIU/mL Free T3 (1.71-3.71) pg/mL Serum Immunofix Reflex Urine Color (Yellow) Urine Clarity (Clear) Urine pH (5.0-8.0) pH Units Ur Specific [place] (1.010-1.025) Urine Protein (Neg-Trace) mg/dL Urine Glucose (UA) (Normal) mg/dL Urine Ketones (Negative) mg/dL Urine Blood (Negative) Urine Nitrite (Negative) Urine Bilirubin (Negative) Urine Urobilinogen (Normal) mg/dL Ur Leukocyte Esterase (Negative) Urine Microscopic RBC (0-3) per hpf Urine Microscopic WBC (0-3) per hpf Ur Squamous Epith Cells (None-Few) per lpf Urine Bacteria (None-Few) per hpf Hyaline Casts (None-Few) per lpf Urine Yeast (None Seen) per hpf Urine Creatinine mg/dL Protein/Creatinin Ratio (0-0.20) mg/mg Urine Total Protein (1-14) mg/dL Vancomycin Trough (10-20) mcg/mL Random Vancomycin mcg/mL Urine Opiates Screen (Gtizxw=977) ng/mL Ur Barbiturates Screen (Jsnwrh=148) ng/mL Ur Phencyclidine Scrn (Cutoff=25) ng/mL Ur Amphetamines Screen (Elpacu=7189) ng/mL U Benzodiazepines Scrn (Irpyrt=813) ng/mL Urine Cocaine Screen (Cutoff= 300) ng/mL U Marijuana (THC) Screen (Cutoff = 50) ng/mL IgG (768-1632) mg/dL IgA (68-408) mg/dL IgM (35-263) mg/dL VICTOR MANUEL Screen (None Detected) VICTOR MANUEL Titer (<1:40) Myeloperoxidase Ab (0-19) AU/mL Anti-ds DNA IgG Ab (None Detected) Glomerular Base Mem IgG (0-19) AU/mL Glomer Base Mem IgG IFA (Negative) Serine Protease 3 Ab (0-19) AU/mL Complement C3 (88-201) mg/dL Complement C4 (10-40) mg/dL Free Trego LC, Quant (0.33-1.94) mg/dL Free Lambda LC, Quant (0.57-2.63) mg/dL Free Trego/Lambda Ratio (0.26-1.65) Hep Bs Antigen (Nonreactive) Hep Bs Antibody mIU/mL Specimen Rejected 04/21/16 04/21/16 04/21/16 Range/Units 04:30 07:17 11:12 WBC (4.3-11.1) K/mcL RBC (3.82-4.97) M/mcL Hgb (11.5-15.4) g/dL Hct (35.3-44.9) % MCV (83.0-100.0) fL MCH (28.0-33.3) pg MCHC (31.6-35.5) g/dL RDW (11.5-14.5) % Plt Count (140-400) K/mcL MPV (9.4-12.4) fL Immature Gran % (0-4) % Seg Neutrophils % % Band Neutrophils % (0-4) % Lymphocytes % % Monocytes % % Eosinophils % % Basophils % % Neutrophils # (1.6-8.9) K/mcL Lymphocytes # (0.6-4.6) K/mcL Monocytes # (0.0-1.3) K/mcL Eosinophils # (0.0-0.6) K/mcL Basophils # (0.0-0.2) K/mcL Reactive Lymphocytes (Not Present) Platelet Estimate (Normal) Immature Plt Fraction (1.1-6.1) % Polychromasia (Not Present) Poikilocytosis (Not Present) Anisocytosis (Not Present) Microcytosis (Not Present) Macrocytosis (Not Present) Ovalocytes (Not Present) ESR (0-15) mm/hr PT (9.4-12.1) Seconds INR APTT Fibrinogen (169-393) mg/dL D-Dimer (0-500) ng/mLFEU Heparin Anti-Xa, Unfract (0.30-0.70) IU/mL VBG pH (7.32-7.42) pH Units VBG pCO2 (41-51) mmHg VBG pO2 (25-40) mmHg VBG HCO3 (21-27) mEq/L Sodium 143 (136-145) mEq/L Potassium 4.2 (3.5-4.5) mEq/L Chloride 104 (98-109) mEq/L Carbon Dioxide 29 (19-29) mEq/L BUN 27 H (7-20) mg/dL Creatinine 1.88 H (0.57-1.11) mg/dL Est GFR ( Amer) 32 L (> 60) Est GFR (Non-Af Amer) 26 L (> 60) BUN/Creatinine Ratio 14 (6-26) Glucose 116 H (70-99) mg/dL POC Glucose 117 H 126 H (58-89) Est Mean Plasma Glucose mg/dl Hemoglobin A1c ( - 5.6) % Calculated Osmolality 302 H (280-300) Lactic Acid (0.5-2.2) mmol/L Uric Acid (2.6-6.0) mg/dL Calcium 8.3 L (8.6-10.8) mg/dL Ionized Calcium (1.15-1.35) mmol/L Phosphorus (2.3-4.7) mg/dL Magnesium (1.6-2.6) mg/dL Total Bilirubin 0.6 (0.2-1.2) mg/dL Direct Bilirubin (0.0-0.5) mg/dL Indirect Bilirubin (0.0-1.2) mg/dL AST 32 (5-34) Units/L ALT 14 (0-55) Units/L Alkaline Phosphatase 106 (38-126) Units/L Creatine Kinase (29-168) Units/L Troponin I (0-0.03) ng/mL C-Reactive Protein (Less than 5) mg/L B-Natriuretic Peptide (0-100) pg/mL Prot Electrophor EER Serum Total Protein 6.1 (6.0-8.3) g/dL Total Protein (PEP) (6.00-8.30) g/dL Albumin 2.1 L (3.5-5.0) g/dL Albumin (PEP) (3.75-5.01) g/dL Globulin 4.0 H (2.4-3.5) g/dL Albumin/Globulin Ratio 0.5 L (1.1-2.2) Bmdmy-9-Ppwfxltzi (0.19-0.46) g/dL Xdghu-2-Gojzrwhrt (0.48-1.05) g/dL Beta Globulins (0.48-1.10) g/dL Gamma Globulins (0.62-1.51) g/dL PEP Interpretation Triglycerides (< 150) mg/dL Cholesterol (< 200) mg/dL LDL Cholesterol, Calc (0-99) mg/dL VLDL Cholesterol, Calc (< 31) mg/dL HDL Cholesterol (40-59) mg/dL Cholesterol/HDL Ratio (0-4.9) TSH (0.350-4.840) mcIU/mL Free T3 (1.71-3.71) pg/mL Serum Immunofix Reflex Urine Color (Yellow) Urine Clarity (Clear) Urine pH (5.0-8.0) pH Units Ur Specific [place] (1.010-1.025) Urine Protein (Neg-Trace) mg/dL Urine Glucose (UA) (Normal) mg/dL Urine Ketones (Negative) mg/dL Urine Blood (Negative) Urine Nitrite (Negative) Urine Bilirubin (Negative) Urine Urobilinogen (Normal) mg/dL Ur Leukocyte Esterase (Negative) Urine Microscopic RBC (0-3) per hpf Urine Microscopic WBC (0-3) per hpf Ur Squamous Epith Cells (None-Few) per lpf Urine Bacteria (None-Few) per hpf Hyaline Casts (None-Few) per lpf Urine Yeast (None Seen) per hpf Urine Creatinine mg/dL Protein/Creatinin Ratio (0-0.20) mg/mg Urine Total Protein (1-14) mg/dL Vancomycin Trough (10-20) mcg/mL Random Vancomycin mcg/mL Urine Opiates Screen (Crvwuh=204) ng/mL Ur Barbiturates Screen (Pnsdye=181) ng/mL Ur Phencyclidine Scrn (Cutoff=25) ng/mL Ur Amphetamines Screen (Adaisu=3913) ng/mL U Benzodiazepines Scrn (Sjlkod=097) ng/mL Urine Cocaine Screen (Cutoff= 300) ng/mL U Marijuana (THC) Screen (Cutoff = 50) ng/mL IgG (768-1632) mg/dL IgA (68-408) mg/dL IgM (35-263) mg/dL VICTOR MANUEL Screen (None Detected) VICTOR MANUEL Titer (<1:40) Myeloperoxidase Ab (0-19) AU/mL Anti-ds DNA IgG Ab (None Detected) Glomerular Base Mem IgG (0-19) AU/mL Glomer Base Mem IgG IFA (Negative) Serine Protease 3 Ab (0-19) AU/mL Complement C3 (88-201) mg/dL Complement C4 (10-40) mg/dL Free Trego LC, Quant (0.33-1.94) mg/dL Free Lambda LC, Quant (0.57-2.63) mg/dL Free Trego/Lambda Ratio (0.26-1.65) Hep Bs Antigen (Nonreactive) Hep Bs Antibody mIU/mL Specimen Rejected 04/21/16 04/21/16 04/21/16 Range/Units 11:30 15:46 21:15 WBC 5.6 (4.3-11.1) K/mcL RBC 4.08 (3.82-4.97) M/mcL Hgb 9.8 L (11.5-15.4) g/dL Hct 33.3 L (35.3-44.9) % MCV 81.6 L (83.0-100.0) fL MCH 24.0 L (28.0-33.3) pg MCHC 29.4 L (31.6-35.5) g/dL RDW 20.3 H (11.5-14.5) % Plt Count 142 (140-400) K/mcL MPV 11.1 (9.4-12.4) fL Immature Gran % (0-4) % Seg Neutrophils % % Band Neutrophils % (0-4) % Lymphocytes % % Monocytes % % Eosinophils % % Basophils % % Neutrophils # (1.6-8.9) K/mcL Lymphocytes # (0.6-4.6) K/mcL Monocytes # (0.0-1.3) K/mcL Eosinophils # (0.0-0.6) K/mcL Basophils # (0.0-0.2) K/mcL Reactive Lymphocytes (Not Present) Platelet Estimate (Normal) Immature Plt Fraction (1.1-6.1) % Polychromasia (Not Present) Poikilocytosis (Not Present) Anisocytosis (Not Present) Microcytosis (Not Present) Macrocytosis (Not Present) Ovalocytes (Not Present) ESR (0-15) mm/hr PT (9.4-12.1) Seconds INR APTT Fibrinogen (169-393) mg/dL D-Dimer (0-500) ng/mLFEU Heparin Anti-Xa, Unfract (0.30-0.70) IU/mL VBG pH (7.32-7.42) pH Units VBG pCO2 (41-51) mmHg VBG pO2 (25-40) mmHg VBG HCO3 (21-27) mEq/L Sodium (136-145) mEq/L Potassium (3.5-4.5) mEq/L Chloride (98-109) mEq/L Carbon Dioxide (19-29) mEq/L BUN (7-20) mg/dL Creatinine (0.57-1.11) mg/dL Est GFR ( Amer) (> 60) Est GFR (Non-Af Amer) (> 60) BUN/Creatinine Ratio (6-26) Glucose (70-99) mg/dL POC Glucose 134 H 140 H (58-89) Est Mean Plasma Glucose mg/dl Hemoglobin A1c ( - 5.6) % Calculated Osmolality (280-300) Lactic Acid (0.5-2.2) mmol/L Uric Acid (2.6-6.0) mg/dL Calcium (8.6-10.8) mg/dL Ionized Calcium (1.15-1.35) mmol/L Phosphorus (2.3-4.7) mg/dL Magnesium (1.6-2.6) mg/dL Total Bilirubin (0.2-1.2) mg/dL Direct Bilirubin (0.0-0.5) mg/dL Indirect Bilirubin (0.0-1.2) mg/dL AST (5-34) Units/L ALT (0-55) Units/L Alkaline Phosphatase (38-126) Units/L Creatine Kinase (29-168) Units/L Troponin I (0-0.03) ng/mL C-Reactive Protein (Less than 5) mg/L B-Natriuretic Peptide (0-100) pg/mL Prot Electrophor EER Serum Total Protein (6.0-8.3) g/dL Total Protein (PEP) (6.00-8.30) g/dL Albumin (3.5-5.0) g/dL Albumin (PEP) (3.75-5.01) g/dL Globulin (2.4-3.5) g/dL Albumin/Globulin Ratio (1.1-2.2) Ufrwn-4-Vtrhhgmsu (0.19-0.46) g/dL Kthkb-3-Jmhgqomtb (0.48-1.05) g/dL Beta Globulins (0.48-1.10) g/dL Gamma Globulins (0.62-1.51) g/dL PEP Interpretation Triglycerides (< 150) mg/dL Cholesterol (< 200) mg/dL LDL Cholesterol, Calc (0-99) mg/dL VLDL Cholesterol, Calc (< 31) mg/dL HDL Cholesterol (40-59) mg/dL Cholesterol/HDL Ratio (0-4.9) TSH (0.350-4.840) mcIU/mL Free T3 (1.71-3.71) pg/mL Serum Immunofix Reflex Urine Color (Yellow) Urine Clarity (Clear) Urine pH (5.0-8.0) pH Units Ur Specific [place] (1.010-1.025) Urine Protein (Neg-Trace) mg/dL Urine Glucose (UA) (Normal) mg/dL Urine Ketones (Negative) mg/dL Urine Blood (Negative) Urine Nitrite (Negative) Urine Bilirubin (Negative) Urine Urobilinogen (Normal) mg/dL Ur Leukocyte Esterase (Negative) Urine Microscopic RBC (0-3) per hpf Urine Microscopic WBC (0-3) per hpf Ur Squamous Epith Cells (None-Few) per lpf Urine Bacteria (None-Few) per hpf Hyaline Casts (None-Few) per lpf Urine Yeast (None Seen) per hpf Urine Creatinine mg/dL Protein/Creatinin Ratio (0-0.20) mg/mg Urine Total Protein (1-14) mg/dL Vancomycin Trough (10-20) mcg/mL Random Vancomycin mcg/mL Urine Opiates Screen (Pzpkgz=554) ng/mL Ur Barbiturates Screen (Jelqwc=254) ng/mL Ur Phencyclidine Scrn (Cutoff=25) ng/mL Ur Amphetamines Screen (Cjmcyx=6055) ng/mL U Benzodiazepines Scrn (Dkaqcb=309) ng/mL Urine Cocaine Screen (Cutoff= 300) ng/mL U Marijuana (THC) Screen (Cutoff = 50) ng/mL IgG (768-1632) mg/dL IgA (68-408) mg/dL IgM (35-263) mg/dL VICTOR MANUEL Screen (None Detected) VICTOR MANUEL Titer (<1:40) Myeloperoxidase Ab (0-19) AU/mL Anti-ds DNA IgG Ab (None Detected) Glomerular Base Mem IgG (0-19) AU/mL Glomer Base Mem IgG IFA (Negative) Serine Protease 3 Ab (0-19) AU/mL Complement C3 (88-201) mg/dL Complement C4 (10-40) mg/dL Free Trego LC, Quant (0.33-1.94) mg/dL Free Lambda LC, Quant (0.57-2.63) mg/dL Free Trego/Lambda Ratio (0.26-1.65) Hep Bs Antigen (Nonreactive) Hep Bs Antibody mIU/mL Specimen Rejected 04/22/16 04/22/16 04/22/16 Range/Units 06:20 06:20 06:20 WBC 4.0 L (4.3-11.1) K/mcL RBC 4.32 (3.82-4.97) M/mcL Hgb 10.5 L (11.5-15.4) g/dL Hct 35.7 (35.3-44.9) % MCV 82.6 L (83.0-100.0) fL MCH 24.3 L (28.0-33.3) pg MCHC 29.4 L (31.6-35.5) g/dL RDW 19.9 H (11.5-14.5) % Plt Count 126 L (140-400) K/mcL MPV 11.4 (9.4-12.4) fL Immature Gran % 0.3 (0-4) % Seg Neutrophils % 76.9 % Band Neutrophils % (0-4) % Lymphocytes % 8.8 % Monocytes % 11.9 % Eosinophils % 1.8 % Basophils % 0.3 % Neutrophils # 3.1 (1.6-8.9) K/mcL Lymphocytes # 0.4 L (0.6-4.6) K/mcL Monocytes # 0.5 (0.0-1.3) K/mcL Eosinophils # 0.1 (0.0-0.6) K/mcL Basophils # 0.0 (0.0-0.2) K/mcL Reactive Lymphocytes (Not Present) Platelet Estimate Decreased L (Normal) Immature Plt Fraction 7.8 H (1.1-6.1) % Polychromasia (Not Present) Poikilocytosis (Not Present) Anisocytosis (Not Present) Microcytosis (Not Present) Macrocytosis (Not Present) Ovalocytes (Not Present) ESR 84 H (0-15) mm/hr PT 33.2 H (9.4-12.1) Seconds INR 3.0 APTT 43.5 H Fibrinogen (169-393) mg/dL D-Dimer (0-500) ng/mLFEU Heparin Anti-Xa, Unfract (0.30-0.70) IU/mL VBG pH (7.32-7.42) pH Units VBG pCO2 (41-51) mmHg VBG pO2 (25-40) mmHg VBG HCO3 (21-27) mEq/L Sodium (136-145) mEq/L Potassium (3.5-4.5) mEq/L Chloride (98-109) mEq/L Carbon Dioxide (19-29) mEq/L BUN (7-20) mg/dL Creatinine (0.57-1.11) mg/dL Est GFR ( Amer) (> 60) Est GFR (Non-Af Amer) (> 60) BUN/Creatinine Ratio (6-26) Glucose (70-99) mg/dL POC Glucose (58-89) Est Mean Plasma Glucose mg/dl Hemoglobin A1c ( - 5.6) % Calculated Osmolality (280-300) Lactic Acid (0.5-2.2) mmol/L Uric Acid (2.6-6.0) mg/dL Calcium (8.6-10.8) mg/dL Ionized Calcium (1.15-1.35) mmol/L Phosphorus (2.3-4.7) mg/dL Magnesium (1.6-2.6) mg/dL Total Bilirubin (0.2-1.2) mg/dL Direct Bilirubin (0.0-0.5) mg/dL Indirect Bilirubin (0.0-1.2) mg/dL AST (5-34) Units/L ALT (0-55) Units/L Alkaline Phosphatase (38-126) Units/L Creatine Kinase (29-168) Units/L Troponin I (0-0.03) ng/mL C-Reactive Protein (Less than 5) mg/L B-Natriuretic Peptide (0-100) pg/mL Prot Electrophor EER Serum Total Protein (6.0-8.3) g/dL Total Protein (PEP) (6.00-8.30) g/dL Albumin (3.5-5.0) g/dL Albumin (PEP) (3.75-5.01) g/dL Globulin (2.4-3.5) g/dL Albumin/Globulin Ratio (1.1-2.2) Mxjlt-2-Jyzxbhvts (0.19-0.46) g/dL Tfgil-2-Vcsgwyuvu (0.48-1.05) g/dL Beta Globulins (0.48-1.10) g/dL Gamma Globulins (0.62-1.51) g/dL PEP Interpretation Triglycerides (< 150) mg/dL Cholesterol (< 200) mg/dL LDL Cholesterol, Calc (0-99) mg/dL VLDL Cholesterol, Calc (< 31) mg/dL HDL Cholesterol (40-59) mg/dL Cholesterol/HDL Ratio (0-4.9) TSH (0.350-4.840) mcIU/mL Free T3 (1.71-3.71) pg/mL Serum Immunofix Reflex Urine Color (Yellow) Urine Clarity (Clear) Urine pH (5.0-8.0) pH Units Ur Specific [place] (1.010-1.025) Urine Protein (Neg-Trace) mg/dL Urine Glucose (UA) (Normal) mg/dL Urine Ketones (Negative) mg/dL Urine Blood (Negative) Urine Nitrite (Negative) Urine Bilirubin (Negative) Urine Urobilinogen (Normal) mg/dL Ur Leukocyte Esterase (Negative) Urine Microscopic RBC (0-3) per hpf Urine Microscopic WBC (0-3) per hpf Ur Squamous Epith Cells (None-Few) per lpf Urine Bacteria (None-Few) per hpf Hyaline Casts (None-Few) per lpf Urine Yeast (None Seen) per hpf Urine Creatinine mg/dL Protein/Creatinin Ratio (0-0.20) mg/mg Urine Total Protein (1-14) mg/dL Vancomycin Trough (10-20) mcg/mL Random Vancomycin mcg/mL Urine Opiates Screen (Nobong=568) ng/mL Ur Barbiturates Screen (Rrjcaa=859) ng/mL Ur Phencyclidine Scrn (Cutoff=25) ng/mL Ur Amphetamines Screen (Rzseai=1679) ng/mL U Benzodiazepines Scrn (Mnoluo=067) ng/mL Urine Cocaine Screen (Cutoff= 300) ng/mL U Marijuana (THC) Screen (Cutoff = 50) ng/mL IgG (768-1632) mg/dL IgA (68-408) mg/dL IgM (35-263) mg/dL VICTOR MANUEL Screen (None Detected) VICTOR MANUEL Titer (<1:40) Myeloperoxidase Ab (0-19) AU/mL Anti-ds DNA IgG Ab (None Detected) Glomerular Base Mem IgG (0-19) AU/mL Glomer Base Mem IgG IFA (Negative) Serine Protease 3 Ab (0-19) AU/mL Complement C3 (88-201) mg/dL Complement C4 (10-40) mg/dL Free Trego LC, Quant (0.33-1.94) mg/dL Free Lambda LC, Quant (0.57-2.63) mg/dL Free Trego/Lambda Ratio (0.26-1.65) Hep Bs Antigen (Nonreactive) Hep Bs Antibody mIU/mL Specimen Rejected 04/22/16 04/22/16 04/22/16 Range/Units 06:20 07:19 11:19 WBC (4.3-11.1) K/mcL RBC (3.82-4.97) M/mcL Hgb (11.5-15.4) g/dL Hct (35.3-44.9) % MCV (83.0-100.0) fL MCH (28.0-33.3) pg MCHC (31.6-35.5) g/dL RDW (11.5-14.5) % Plt Count (140-400) K/mcL MPV (9.4-12.4) fL Immature Gran % (0-4) % Seg Neutrophils % % Band Neutrophils % (0-4) % Lymphocytes % % Monocytes % % Eosinophils % % Basophils % % Neutrophils # (1.6-8.9) K/mcL Lymphocytes # (0.6-4.6) K/mcL Monocytes # (0.0-1.3) K/mcL Eosinophils # (0.0-0.6) K/mcL Basophils # (0.0-0.2) K/mcL Reactive Lymphocytes (Not Present) Platelet Estimate (Normal) Immature Plt Fraction (1.1-6.1) % Polychromasia (Not Present) Poikilocytosis (Not Present) Anisocytosis (Not Present) Microcytosis (Not Present) Macrocytosis (Not Present) Ovalocytes (Not Present) ESR (0-15) mm/hr PT (9.4-12.1) Seconds INR APTT Fibrinogen (169-393) mg/dL D-Dimer (0-500) ng/mLFEU Heparin Anti-Xa, Unfract (0.30-0.70) IU/mL VBG pH (7.32-7.42) pH Units VBG pCO2 (41-51) mmHg VBG pO2 (25-40) mmHg VBG HCO3 (21-27) mEq/L Sodium (136-145) mEq/L Potassium (3.5-4.5) mEq/L Chloride (98-109) mEq/L Carbon Dioxide (19-29) mEq/L BUN (7-20) mg/dL Creatinine (0.57-1.11) mg/dL Est GFR ( Amer) (> 60) Est GFR (Non-Af Amer) (> 60) BUN/Creatinine Ratio (6-26) Glucose (70-99) mg/dL POC Glucose 173 H 100 H (58-89) Est Mean Plasma Glucose mg/dl Hemoglobin A1c ( - 5.6) % Calculated Osmolality (280-300) Lactic Acid (0.5-2.2) mmol/L Uric Acid (2.6-6.0) mg/dL Calcium (8.6-10.8) mg/dL Ionized Calcium (1.15-1.35) mmol/L Phosphorus (2.3-4.7) mg/dL Magnesium (1.6-2.6) mg/dL Total Bilirubin (0.2-1.2) mg/dL Direct Bilirubin (0.0-0.5) mg/dL Indirect Bilirubin (0.0-1.2) mg/dL AST (5-34) Units/L ALT (0-55) Units/L Alkaline Phosphatase (38-126) Units/L Creatine Kinase (29-168) Units/L Troponin I (0-0.03) ng/mL C-Reactive Protein (Less than 5) mg/L B-Natriuretic Peptide (0-100) pg/mL Prot Electrophor EER Serum Total Protein (6.0-8.3) g/dL Total Protein (PEP) (6.00-8.30) g/dL Albumin (3.5-5.0) g/dL Albumin (PEP) (3.75-5.01) g/dL Globulin (2.4-3.5) g/dL Albumin/Globulin Ratio (1.1-2.2) Ycekw-8-Kirlqkwsw (0.19-0.46) g/dL Bjkff-9-Ruogkkwwp (0.48-1.05) g/dL Beta Globulins (0.48-1.10) g/dL Gamma Globulins (0.62-1.51) g/dL PEP Interpretation Triglycerides (< 150) mg/dL Cholesterol (< 200) mg/dL LDL Cholesterol, Calc (0-99) mg/dL VLDL Cholesterol, Calc (< 31) mg/dL HDL Cholesterol (40-59) mg/dL Cholesterol/HDL Ratio (0-4.9) TSH (0.350-4.840) mcIU/mL Free T3 (1.71-3.71) pg/mL Serum Immunofix Reflex Urine Color (Yellow) Urine Clarity (Clear) Urine pH (5.0-8.0) pH Units Ur Specific [place] (1.010-1.025) Urine Protein (Neg-Trace) mg/dL Urine Glucose (UA) (Normal) mg/dL Urine Ketones (Negative) mg/dL Urine Blood (Negative) Urine Nitrite (Negative) Urine Bilirubin (Negative) Urine Urobilinogen (Normal) mg/dL Ur Leukocyte Esterase (Negative) Urine Microscopic RBC (0-3) per hpf Urine Microscopic WBC (0-3) per hpf Ur Squamous Epith Cells (None-Few) per lpf Urine Bacteria (None-Few) per hpf Hyaline Casts (None-Few) per lpf Urine Yeast (None Seen) per hpf Urine Creatinine mg/dL Protein/Creatinin Ratio (0-0.20) mg/mg Urine Total Protein (1-14) mg/dL Vancomycin Trough (10-20) mcg/mL Random Vancomycin mcg/mL Urine Opiates Screen (Nugdxq=928) ng/mL Ur Barbiturates Screen (Pbaniu=675) ng/mL Ur Phencyclidine Scrn (Cutoff=25) ng/mL Ur Amphetamines Screen (Lxlruh=3902) ng/mL U Benzodiazepines Scrn (Eeflny=713) ng/mL Urine Cocaine Screen (Cutoff= 300) ng/mL U Marijuana (THC) Screen (Cutoff = 50) ng/mL IgG (768-1632) mg/dL IgA (68-408) mg/dL IgM (35-263) mg/dL VICTOR MANUEL Screen (None Detected) VICTOR MANUEL Titer (<1:40) Myeloperoxidase Ab (0-19) AU/mL Anti-ds DNA IgG Ab (None Detected) Glomerular Base Mem IgG (0-19) AU/mL Glomer Base Mem IgG IFA (Negative) Serine Protease 3 Ab (0-19) AU/mL Complement C3 (88-201) mg/dL Complement C4 (10-40) mg/dL Free Trego LC, Quant (0.33-1.94) mg/dL Free Lambda LC, Quant (0.57-2.63) mg/dL Free Trego/Lambda Ratio (0.26-1.65) Hep Bs Antigen (Nonreactive) Hep Bs Antibody mIU/mL Specimen Rejected Hemolyzed 04/22/16 04/22/16 04/22/16 Range/Units 12:18 13:20 15:10 WBC (4.3-11.1) K/mcL RBC (3.82-4.97) M/mcL Hgb (11.5-15.4) g/dL Hct (35.3-44.9) % MCV (83.0-100.0) fL MCH (28.0-33.3) pg MCHC (31.6-35.5) g/dL RDW (11.5-14.5) % Plt Count (140-400) K/mcL MPV (9.4-12.4) fL Immature Gran % (0-4) % Seg Neutrophils % % Band Neutrophils % (0-4) % Lymphocytes % % Monocytes % % Eosinophils % % Basophils % % Neutrophils # (1.6-8.9) K/mcL Lymphocytes # (0.6-4.6) K/mcL Monocytes # (0.0-1.3) K/mcL Eosinophils # (0.0-0.6) K/mcL Basophils # (0.0-0.2) K/mcL Reactive Lymphocytes (Not Present) Platelet Estimate (Normal) Immature Plt Fraction (1.1-6.1) % Polychromasia (Not Present) Poikilocytosis (Not Present) Anisocytosis (Not Present) Microcytosis (Not Present) Macrocytosis (Not Present) Ovalocytes (Not Present) ESR (0-15) mm/hr PT (9.4-12.1) Seconds INR APTT Fibrinogen (169-393) mg/dL D-Dimer (0-500) ng/mLFEU Heparin Anti-Xa, Unfract (0.30-0.70) IU/mL VBG pH (7.32-7.42) pH Units VBG pCO2 (41-51) mmHg VBG pO2 (25-40) mmHg VBG HCO3 (21-27) mEq/L Sodium 144 (136-145) mEq/L Potassium 3.4 L (3.5-4.5) mEq/L Chloride 107 (98-109) mEq/L Carbon Dioxide 31 H (19-29) mEq/L BUN 31 H (7-20) mg/dL Creatinine 1.96 H (0.57-1.11) mg/dL Est GFR ( Amer) 30 L (> 60) Est GFR (Non-Af Amer) 25 L (> 60) BUN/Creatinine Ratio 16 (6-26) Glucose 94 (70-99) mg/dL POC Glucose 127 H (58-89) Est Mean Plasma Glucose mg/dl Hemoglobin A1c ( - 5.6) % Calculated Osmolality 304 H (280-300) Lactic Acid (0.5-2.2) mmol/L Uric Acid (2.6-6.0) mg/dL Calcium 8.3 L (8.6-10.8) mg/dL Ionized Calcium (1.15-1.35) mmol/L Phosphorus (2.3-4.7) mg/dL Magnesium (1.6-2.6) mg/dL Total Bilirubin (0.2-1.2) mg/dL Direct Bilirubin (0.0-0.5) mg/dL Indirect Bilirubin (0.0-1.2) mg/dL AST (5-34) Units/L ALT (0-55) Units/L Alkaline Phosphatase (38-126) Units/L Creatine Kinase (29-168) Units/L Troponin I (0-0.03) ng/mL C-Reactive Protein 90 H (Less than 5) mg/L B-Natriuretic Peptide (0-100) pg/mL Prot Electrophor EER Serum Total Protein (6.0-8.3) g/dL Total Protein (PEP) (6.00-8.30) g/dL Albumin (3.5-5.0) g/dL Albumin (PEP) (3.75-5.01) g/dL Globulin (2.4-3.5) g/dL Albumin/Globulin Ratio (1.1-2.2) Zevhx-0-Pkputzvgv (0.19-0.46) g/dL Duyro-5-Hgnkubwhi (0.48-1.05) g/dL Beta Globulins (0.48-1.10) g/dL Gamma Globulins (0.62-1.51) g/dL PEP Interpretation Triglycerides (< 150) mg/dL Cholesterol (< 200) mg/dL LDL Cholesterol, Calc (0-99) mg/dL VLDL Cholesterol, Calc (< 31) mg/dL HDL Cholesterol (40-59) mg/dL Cholesterol/HDL Ratio (0-4.9) TSH (0.350-4.840) mcIU/mL Free T3 (1.71-3.71) pg/mL Serum Immunofix Reflex Urine Color (Yellow) Urine Clarity (Clear) Urine pH (5.0-8.0) pH Units Ur Specific [place] (1.010-1.025) Urine Protein (Neg-Trace) mg/dL Urine Glucose (UA) (Normal) mg/dL Urine Ketones (Negative) mg/dL Urine Blood (Negative) Urine Nitrite (Negative) Urine Bilirubin (Negative) Urine Urobilinogen (Normal) mg/dL Ur Leukocyte Esterase (Negative) Urine Microscopic RBC (0-3) per hpf Urine Microscopic WBC (0-3) per hpf Ur Squamous Epith Cells (None-Few) per lpf Urine Bacteria (None-Few) per hpf Hyaline Casts (None-Few) per lpf Urine Yeast (None Seen) per hpf Urine Creatinine mg/dL Protein/Creatinin Ratio (0-0.20) mg/mg Urine Total Protein (1-14) mg/dL Vancomycin Trough (10-20) mcg/mL Random Vancomycin mcg/mL Urine Opiates Screen (Lrlawz=509) ng/mL Ur Barbiturates Screen (Tkrzcc=508) ng/mL Ur Phencyclidine Scrn (Cutoff=25) ng/mL Ur Amphetamines Screen (Tbpska=3762) ng/mL U Benzodiazepines Scrn (Mlyphm=473) ng/mL Urine Cocaine Screen (Cutoff= 300) ng/mL U Marijuana (THC) Screen (Cutoff = 50) ng/mL IgG (768-1632) mg/dL IgA (68-408) mg/dL IgM (35-263) mg/dL VICTOR MANUEL Screen (None Detected) VICTOR MANUEL Titer (<1:40) Myeloperoxidase Ab (0-19) AU/mL Anti-ds DNA IgG Ab (None Detected) Glomerular Base Mem IgG (0-19) AU/mL Glomer Base Mem IgG IFA (Negative) Serine Protease 3 Ab (0-19) AU/mL Complement C3 (88-201) mg/dL Complement C4 (10-40) mg/dL Free Trego LC, Quant (0.33-1.94) mg/dL Free Lambda LC, Quant (0.57-2.63) mg/dL Free Trego/Lambda Ratio (0.26-1.65) Hep Bs Antigen (Nonreactive) Hep Bs Antibody mIU/mL Specimen Rejected Hemolyzed 04/22/16 04/22/16 04/23/16 Range/Units 18:15 21:27 04:32 WBC (4.3-11.1) K/mcL RBC (3.82-4.97) M/mcL Hgb (11.5-15.4) g/dL Hct (35.3-44.9) % MCV (83.0-100.0) fL MCH (28.0-33.3) pg MCHC (31.6-35.5) g/dL RDW (11.5-14.5) % Plt Count (140-400) K/mcL MPV (9.4-12.4) fL Immature Gran % (0-4) % Seg Neutrophils % % Band Neutrophils % (0-4) % Lymphocytes % % Monocytes % % Eosinophils % % Basophils % % Neutrophils # (1.6-8.9) K/mcL Lymphocytes # (0.6-4.6) K/mcL Monocytes # (0.0-1.3) K/mcL Eosinophils # (0.0-0.6) K/mcL Basophils # (0.0-0.2) K/mcL Reactive Lymphocytes (Not Present) Platelet Estimate (Normal) Immature Plt Fraction (1.1-6.1) % Polychromasia (Not Present) Poikilocytosis (Not Present) Anisocytosis (Not Present) Microcytosis (Not Present) Macrocytosis (Not Present) Ovalocytes (Not Present) ESR (0-15) mm/hr PT 35.6 H (9.4-12.1) Seconds INR 3.2 APTT 43.3 H Fibrinogen (169-393) mg/dL D-Dimer (0-500) ng/mLFEU Heparin Anti-Xa, Unfract (0.30-0.70) IU/mL VBG pH (7.32-7.42) pH Units VBG pCO2 (41-51) mmHg VBG pO2 (25-40) mmHg VBG HCO3 (21-27) mEq/L Sodium (136-145) mEq/L Potassium (3.5-4.5) mEq/L Chloride (98-109) mEq/L Carbon Dioxide (19-29) mEq/L BUN (7-20) mg/dL Creatinine (0.57-1.11) mg/dL Est GFR ( Amer) (> 60) Est GFR (Non-Af Amer) (> 60) BUN/Creatinine Ratio (6-26) Glucose (70-99) mg/dL POC Glucose 99 H (58-89) Est Mean Plasma Glucose mg/dl Hemoglobin A1c ( - 5.6) % Calculated Osmolality (280-300) Lactic Acid (0.5-2.2) mmol/L Uric Acid (2.6-6.0) mg/dL Calcium (8.6-10.8) mg/dL Ionized Calcium (1.15-1.35) mmol/L Phosphorus (2.3-4.7) mg/dL Magnesium (1.6-2.6) mg/dL Total Bilirubin (0.2-1.2) mg/dL Direct Bilirubin (0.0-0.5) mg/dL Indirect Bilirubin (0.0-1.2) mg/dL AST (5-34) Units/L ALT (0-55) Units/L Alkaline Phosphatase (38-126) Units/L Creatine Kinase (29-168) Units/L Troponin I (0-0.03) ng/mL C-Reactive Protein (Less than 5) mg/L B-Natriuretic Peptide (0-100) pg/mL Prot Electrophor EER Serum Total Protein (6.0-8.3) g/dL Total Protein (PEP) (6.00-8.30) g/dL Albumin (3.5-5.0) g/dL Albumin (PEP) (3.75-5.01) g/dL Globulin (2.4-3.5) g/dL Albumin/Globulin Ratio (1.1-2.2) Bytfl-1-Rawydbhiu (0.19-0.46) g/dL Itvcf-3-Kpwpflmec (0.48-1.05) g/dL Beta Globulins (0.48-1.10) g/dL Gamma Globulins (0.62-1.51) g/dL PEP Interpretation Triglycerides (< 150) mg/dL Cholesterol (< 200) mg/dL LDL Cholesterol, Calc (0-99) mg/dL VLDL Cholesterol, Calc (< 31) mg/dL HDL Cholesterol (40-59) mg/dL Cholesterol/HDL Ratio (0-4.9) TSH (0.350-4.840) mcIU/mL Free T3 (1.71-3.71) pg/mL Serum Immunofix Reflex Urine Color (Yellow) Urine Clarity (Clear) Urine pH (5.0-8.0) pH Units Ur Specific [place] (1.010-1.025) Urine Protein (Neg-Trace) mg/dL Urine Glucose (UA) (Normal) mg/dL Urine Ketones (Negative) mg/dL Urine Blood (Negative) Urine Nitrite (Negative) Urine Bilirubin (Negative) Urine Urobilinogen (Normal) mg/dL Ur Leukocyte Esterase (Negative) Urine Microscopic RBC (0-3) per hpf Urine Microscopic WBC (0-3) per hpf Ur Squamous Epith Cells (None-Few) per lpf Urine Bacteria (None-Few) per hpf Hyaline Casts (None-Few) per lpf Urine Yeast (None Seen) per hpf Urine Creatinine mg/dL Protein/Creatinin Ratio (0-0.20) mg/mg Urine Total Protein (1-14) mg/dL Vancomycin Trough 19.6 (10-20) mcg/mL Random Vancomycin mcg/mL Urine Opiates Screen (Prlabt=727) ng/mL Ur Barbiturates Screen (Bofhoq=126) ng/mL Ur Phencyclidine Scrn (Cutoff=25) ng/mL Ur Amphetamines Screen (Ymqaec=8380) ng/mL U Benzodiazepines Scrn (Hchwve=443) ng/mL Urine Cocaine Screen (Cutoff= 300) ng/mL U Marijuana (THC) Screen (Cutoff = 50) ng/mL IgG (768-1632) mg/dL IgA (68-408) mg/dL IgM (35-263) mg/dL VICTOR MANUEL Screen (None Detected) VICTOR MANUEL Titer (<1:40) Myeloperoxidase Ab (0-19) AU/mL Anti-ds DNA IgG Ab (None Detected) Glomerular Base Mem IgG (0-19) AU/mL Glomer Base Mem IgG IFA (Negative) Serine Protease 3 Ab (0-19) AU/mL Complement C3 (88-201) mg/dL Complement C4 (10-40) mg/dL Free Trego LC, Quant (0.33-1.94) mg/dL Free Lambda LC, Quant (0.57-2.63) mg/dL Free Trego/Lambda Ratio (0.26-1.65) Hep Bs Antigen (Nonreactive) Hep Bs Antibody mIU/mL Specimen Rejected 04/23/16 04/23/16 04/23/16 Range/Units 04:32 05:44 07:45 WBC 3.1 L (4.3-11.1) K/mcL RBC 3.68 L (3.82-4.97) M/mcL Hgb 9.0 L D (11.5-15.4) g/dL Hct 30.2 L (35.3-44.9) % MCV 82.1 L (83.0-100.0) fL MCH 24.5 L (28.0-33.3) pg MCHC 29.8 L (31.6-35.5) g/dL RDW 19.4 H (11.5-14.5) % Plt Count 121 L (140-400) K/mcL MPV 12.3 (9.4-12.4) fL Immature Gran % (0-4) % Seg Neutrophils % % Band Neutrophils % (0-4) % Lymphocytes % % Monocytes % % Eosinophils % % Basophils % % Neutrophils # (1.6-8.9) K/mcL Lymphocytes # (0.6-4.6) K/mcL Monocytes # (0.0-1.3) K/mcL Eosinophils # (0.0-0.6) K/mcL Basophils # (0.0-0.2) K/mcL Reactive Lymphocytes (Not Present) Platelet Estimate (Normal) Immature Plt Fraction (1.1-6.1) % Polychromasia (Not Present) Poikilocytosis (Not Present) Anisocytosis (Not Present) Microcytosis (Not Present) Macrocytosis (Not Present) Ovalocytes (Not Present) ESR (0-15) mm/hr PT (9.4-12.1) Seconds INR APTT Fibrinogen (169-393) mg/dL D-Dimer (0-500) ng/mLFEU Heparin Anti-Xa, Unfract (0.30-0.70) IU/mL VBG pH (7.32-7.42) pH Units VBG pCO2 (41-51) mmHg VBG pO2 (25-40) mmHg VBG HCO3 (21-27) mEq/L Sodium (136-145) mEq/L Potassium (3.5-4.5) mEq/L Chloride (98-109) mEq/L Carbon Dioxide (19-29) mEq/L BUN 34 H (7-20) mg/dL Creatinine 2.03 H (0.57-1.11) mg/dL Est GFR ( Amer) 29 L (> 60) Est GFR (Non-Af Amer) 24 L (> 60) BUN/Creatinine Ratio 17 (6-26) Glucose (70-99) mg/dL POC Glucose 93 H (58-89) Est Mean Plasma Glucose mg/dl Hemoglobin A1c ( - 5.6) % Calculated Osmolality (280-300) Lactic Acid (0.5-2.2) mmol/L Uric Acid (2.6-6.0) mg/dL Calcium (8.6-10.8) mg/dL Ionized Calcium (1.15-1.35) mmol/L Phosphorus (2.3-4.7) mg/dL Magnesium (1.6-2.6) mg/dL Total Bilirubin (0.2-1.2) mg/dL Direct Bilirubin (0.0-0.5) mg/dL Indirect Bilirubin (0.0-1.2) mg/dL AST (5-34) Units/L ALT (0-55) Units/L Alkaline Phosphatase (38-126) Units/L Creatine Kinase (29-168) Units/L Troponin I (0-0.03) ng/mL C-Reactive Protein (Less than 5) mg/L B-Natriuretic Peptide (0-100) pg/mL Prot Electrophor EER Serum Total Protein (6.0-8.3) g/dL Total Protein (PEP) (6.00-8.30) g/dL Albumin (3.5-5.0) g/dL Albumin (PEP) (3.75-5.01) g/dL Globulin (2.4-3.5) g/dL Albumin/Globulin Ratio (1.1-2.2) Atusx-4-Kbqkvvtsh (0.19-0.46) g/dL Favio-4-Nkngeqfgu (0.48-1.05) g/dL Beta Globulins (0.48-1.10) g/dL Gamma Globulins (0.62-1.51) g/dL PEP Interpretation Triglycerides (< 150) mg/dL Cholesterol (< 200) mg/dL LDL Cholesterol, Calc (0-99) mg/dL VLDL Cholesterol, Calc (< 31) mg/dL HDL Cholesterol (40-59) mg/dL Cholesterol/HDL Ratio (0-4.9) TSH (0.350-4.840) mcIU/mL Free T3 (1.71-3.71) pg/mL Serum Immunofix Reflex Urine Color (Yellow) Urine Clarity (Clear) Urine pH (5.0-8.0) pH Units Ur Specific [place] (1.010-1.025) Urine Protein (Neg-Trace) mg/dL Urine Glucose (UA) (Normal) mg/dL Urine Ketones (Negative) mg/dL Urine Blood (Negative) Urine Nitrite (Negative) Urine Bilirubin (Negative) Urine Urobilinogen (Normal) mg/dL Ur Leukocyte Esterase (Negative) Urine Microscopic RBC (0-3) per hpf Urine Microscopic WBC (0-3) per hpf Ur Squamous Epith Cells (None-Few) per lpf Urine Bacteria (None-Few) per hpf Hyaline Casts (None-Few) per lpf Urine Yeast (None Seen) per hpf Urine Creatinine mg/dL Protein/Creatinin Ratio (0-0.20) mg/mg Urine Total Protein (1-14) mg/dL Vancomycin Trough (10-20) mcg/mL Random Vancomycin mcg/mL Urine Opiates Screen (Wewbij=724) ng/mL Ur Barbiturates Screen (Xbuxtk=144) ng/mL Ur Phencyclidine Scrn (Cutoff=25) ng/mL Ur Amphetamines Screen (Ybqicv=3259) ng/mL U Benzodiazepines Scrn (Ffaocw=375) ng/mL Urine Cocaine Screen (Cutoff= 300) ng/mL U Marijuana (THC) Screen (Cutoff = 50) ng/mL IgG (768-1632) mg/dL IgA (68-408) mg/dL IgM (35-263) mg/dL VICTOR MANUEL Screen (None Detected) VICTOR MANUEL Titer (<1:40) Myeloperoxidase Ab (0-19) AU/mL Anti-ds DNA IgG Ab (None Detected) Glomerular Base Mem IgG (0-19) AU/mL Glomer Base Mem IgG IFA (Negative) Serine Protease 3 Ab (0-19) AU/mL Complement C3 (88-201) mg/dL Complement C4 (10-40) mg/dL Free Trego LC, Quant (0.33-1.94) mg/dL Free Lambda LC, Quant (0.57-2.63) mg/dL Free Trego/Lambda Ratio (0.26-1.65) Hep Bs Antigen (Nonreactive) Hep Bs Antibody mIU/mL Specimen Rejected 04/23/16 04/23/16 04/23/16 Range/Units 11:42 16:28 19:55 WBC (4.3-11.1) K/mcL RBC (3.82-4.97) M/mcL Hgb (11.5-15.4) g/dL Hct (35.3-44.9) % MCV (83.0-100.0) fL MCH (28.0-33.3) pg MCHC (31.6-35.5) g/dL RDW (11.5-14.5) % Plt Count (140-400) K/mcL MPV (9.4-12.4) fL Immature Gran % (0-4) % Seg Neutrophils % % Band Neutrophils % (0-4) % Lymphocytes % % Monocytes % % Eosinophils % % Basophils % % Neutrophils # (1.6-8.9) K/mcL Lymphocytes # (0.6-4.6) K/mcL Monocytes # (0.0-1.3) K/mcL Eosinophils # (0.0-0.6) K/mcL Basophils # (0.0-0.2) K/mcL Reactive Lymphocytes (Not Present) Platelet Estimate (Normal) Immature Plt Fraction (1.1-6.1) % Polychromasia (Not Present) Poikilocytosis (Not Present) Anisocytosis (Not Present) Microcytosis (Not Present) Macrocytosis (Not Present) Ovalocytes (Not Present) ESR (0-15) mm/hr PT (9.4-12.1) Seconds INR APTT Fibrinogen (169-393) mg/dL D-Dimer (0-500) ng/mLFEU Heparin Anti-Xa, Unfract (0.30-0.70) IU/mL VBG pH (7.32-7.42) pH Units VBG pCO2 (41-51) mmHg VBG pO2 (25-40) mmHg VBG HCO3 (21-27) mEq/L Sodium (136-145) mEq/L Potassium (3.5-4.5) mEq/L Chloride (98-109) mEq/L Carbon Dioxide (19-29) mEq/L BUN (7-20) mg/dL Creatinine (0.57-1.11) mg/dL Est GFR ( Amer) (> 60) Est GFR (Non-Af Amer) (> 60) BUN/Creatinine Ratio (6-26) Glucose (70-99) mg/dL POC Glucose 84 95 H 114 H (58-89) Est Mean Plasma Glucose mg/dl Hemoglobin A1c ( - 5.6) % Calculated Osmolality (280-300) Lactic Acid (0.5-2.2) mmol/L Uric Acid (2.6-6.0) mg/dL Calcium (8.6-10.8) mg/dL Ionized Calcium (1.15-1.35) mmol/L Phosphorus (2.3-4.7) mg/dL Magnesium (1.6-2.6) mg/dL Total Bilirubin (0.2-1.2) mg/dL Direct Bilirubin (0.0-0.5) mg/dL Indirect Bilirubin (0.0-1.2) mg/dL AST (5-34) Units/L ALT (0-55) Units/L Alkaline Phosphatase (38-126) Units/L Creatine Kinase (29-168) Units/L Troponin I (0-0.03) ng/mL C-Reactive Protein (Less than 5) mg/L B-Natriuretic Peptide (0-100) pg/mL Prot Electrophor EER Serum Total Protein (6.0-8.3) g/dL Total Protein (PEP) (6.00-8.30) g/dL Albumin (3.5-5.0) g/dL Albumin (PEP) (3.75-5.01) g/dL Globulin (2.4-3.5) g/dL Albumin/Globulin Ratio (1.1-2.2) Gsaym-4-Edwpxsryz (0.19-0.46) g/dL Ctehb-6-Rfpxirezl (0.48-1.05) g/dL Beta Globulins (0.48-1.10) g/dL Gamma Globulins (0.62-1.51) g/dL PEP Interpretation Triglycerides (< 150) mg/dL Cholesterol (< 200) mg/dL LDL Cholesterol, Calc (0-99) mg/dL VLDL Cholesterol, Calc (< 31) mg/dL HDL Cholesterol (40-59) mg/dL Cholesterol/HDL Ratio (0-4.9) TSH (0.350-4.840) mcIU/mL Free T3 (1.71-3.71) pg/mL Serum Immunofix Reflex Urine Color (Yellow) Urine Clarity (Clear) Urine pH (5.0-8.0) pH Units Ur Specific [place] (1.010-1.025) Urine Protein (Neg-Trace) mg/dL Urine Glucose (UA) (Normal) mg/dL Urine Ketones (Negative) mg/dL Urine Blood (Negative) Urine Nitrite (Negative) Urine Bilirubin (Negative) Urine Urobilinogen (Normal) mg/dL Ur Leukocyte Esterase (Negative) Urine Microscopic RBC (0-3) per hpf Urine Microscopic WBC (0-3) per hpf Ur Squamous Epith Cells (None-Few) per lpf Urine Bacteria (None-Few) per hpf Hyaline Casts (None-Few) per lpf Urine Yeast (None Seen) per hpf Urine Creatinine mg/dL Protein/Creatinin Ratio (0-0.20) mg/mg Urine Total Protein (1-14) mg/dL Vancomycin Trough (10-20) mcg/mL Random Vancomycin mcg/mL Urine Opiates Screen (Gpqixd=172) ng/mL Ur Barbiturates Screen (Mvqxia=698) ng/mL Ur Phencyclidine Scrn (Cutoff=25) ng/mL Ur Amphetamines Screen (Bapqti=8505) ng/mL U Benzodiazepines Scrn (Ltehys=052) ng/mL Urine Cocaine Screen (Cutoff= 300) ng/mL U Marijuana (THC) Screen (Cutoff = 50) ng/mL IgG (768-1632) mg/dL IgA (68-408) mg/dL IgM (35-263) mg/dL VICTOR MANUEL Screen (None Detected) VICTOR MANUEL Titer (<1:40) Myeloperoxidase Ab (0-19) AU/mL Anti-ds DNA IgG Ab (None Detected) Glomerular Base Mem IgG (0-19) AU/mL Glomer Base Mem IgG IFA (Negative) Serine Protease 3 Ab (0-19) AU/mL Complement C3 (88-201) mg/dL Complement C4 (10-40) mg/dL Free Trego LC, Quant (0.33-1.94) mg/dL Free Lambda LC, Quant (0.57-2.63) mg/dL Free Trego/Lambda Ratio (0.26-1.65) Hep Bs Antigen (Nonreactive) Hep Bs Antibody mIU/mL Specimen Rejected 04/24/16 04/24/16 04/24/16 Range/Units 03:47 07:40 10:00 WBC 3.9 L (4.3-11.1) K/mcL RBC 3.66 L (3.82-4.97) M/mcL Hgb 9.0 L (11.5-15.4) g/dL Hct 29.9 L (35.3-44.9) % MCV 81.7 L (83.0-100.0) fL MCH 24.6 L (28.0-33.3) pg MCHC 30.1 L (31.6-35.5) g/dL RDW 19.7 H (11.5-14.5) % Plt Count 117 L (140-400) K/mcL MPV 12.5 H (9.4-12.4) fL Immature Gran % 0.8 (0-4) % Seg Neutrophils % 69.6 % Band Neutrophils % (0-4) % Lymphocytes % 19.0 % Monocytes % 10.3 % Eosinophils % 0.3 % Basophils % 0.0 % Neutrophils # 2.7 (1.6-8.9) K/mcL Lymphocytes # 0.7 (0.6-4.6) K/mcL Monocytes # 0.4 (0.0-1.3) K/mcL Eosinophils # 0.0 (0.0-0.6) K/mcL Basophils # 0.0 (0.0-0.2) K/mcL Reactive Lymphocytes (Not Present) Platelet Estimate Slight Decrease L (Normal) Immature Plt Fraction (1.1-6.1) % Polychromasia (Not Present) Poikilocytosis (Not Present) Anisocytosis 1+ A (Not Present) Microcytosis (Not Present) Macrocytosis (Not Present) Ovalocytes 1+ A (Not Present) ESR (0-15) mm/hr PT (9.4-12.1) Seconds INR APTT Fibrinogen (169-393) mg/dL D-Dimer (0-500) ng/mLFEU Heparin Anti-Xa, Unfract (0.30-0.70) IU/mL VBG pH (7.32-7.42) pH Units VBG pCO2 (41-51) mmHg VBG pO2 (25-40) mmHg VBG HCO3 (21-27) mEq/L Sodium (136-145) mEq/L Potassium (3.5-4.5) mEq/L Chloride (98-109) mEq/L Carbon Dioxide (19-29) mEq/L BUN (7-20) mg/dL Creatinine (0.57-1.11) mg/dL Est GFR ( Amer) (> 60) Est GFR (Non-Af Amer) (> 60) BUN/Creatinine Ratio (6-26) Glucose (70-99) mg/dL POC Glucose 112 H 128 H (58-89) Est Mean Plasma Glucose mg/dl Hemoglobin A1c ( - 5.6) % Calculated Osmolality (280-300) Lactic Acid (0.5-2.2) mmol/L Uric Acid (2.6-6.0) mg/dL Calcium (8.6-10.8) mg/dL Ionized Calcium (1.15-1.35) mmol/L Phosphorus (2.3-4.7) mg/dL Magnesium (1.6-2.6) mg/dL Total Bilirubin (0.2-1.2) mg/dL Direct Bilirubin (0.0-0.5) mg/dL Indirect Bilirubin (0.0-1.2) mg/dL AST (5-34) Units/L ALT (0-55) Units/L Alkaline Phosphatase (38-126) Units/L Creatine Kinase (29-168) Units/L Troponin I (0-0.03) ng/mL C-Reactive Protein (Less than 5) mg/L B-Natriuretic Peptide (0-100) pg/mL Prot Electrophor EER Serum Total Protein (6.0-8.3) g/dL Total Protein (PEP) (6.00-8.30) g/dL Albumin (3.5-5.0) g/dL Albumin (PEP) (3.75-5.01) g/dL Globulin (2.4-3.5) g/dL Albumin/Globulin Ratio (1.1-2.2) Rjehf-0-Gutvgryzy (0.19-0.46) g/dL Nmmqm-4-Pjozsnxmg (0.48-1.05) g/dL Beta Globulins (0.48-1.10) g/dL Gamma Globulins (0.62-1.51) g/dL PEP Interpretation Triglycerides (< 150) mg/dL Cholesterol (< 200) mg/dL LDL Cholesterol, Calc (0-99) mg/dL VLDL Cholesterol, Calc (< 31) mg/dL HDL Cholesterol (40-59) mg/dL Cholesterol/HDL Ratio (0-4.9) TSH (0.350-4.840) mcIU/mL Free T3 (1.71-3.71) pg/mL Serum Immunofix Reflex Urine Color (Yellow) Urine Clarity (Clear) Urine pH (5.0-8.0) pH Units Ur Specific [place] (1.010-1.025) Urine Protein (Neg-Trace) mg/dL Urine Glucose (UA) (Normal) mg/dL Urine Ketones (Negative) mg/dL Urine Blood (Negative) Urine Nitrite (Negative) Urine Bilirubin (Negative) Urine Urobilinogen (Normal) mg/dL Ur Leukocyte Esterase (Negative) Urine Microscopic RBC (0-3) per hpf Urine Microscopic WBC (0-3) per hpf Ur Squamous Epith Cells (None-Few) per lpf Urine Bacteria (None-Few) per hpf Hyaline Casts (None-Few) per lpf Urine Yeast (None Seen) per hpf Urine Creatinine mg/dL Protein/Creatinin Ratio (0-0.20) mg/mg Urine Total Protein (1-14) mg/dL Vancomycin Trough (10-20) mcg/mL Random Vancomycin mcg/mL Urine Opiates Screen (Qaoftk=502) ng/mL Ur Barbiturates Screen (Wcfnmv=994) ng/mL Ur Phencyclidine Scrn (Cutoff=25) ng/mL Ur Amphetamines Screen (Fsgtwx=9693) ng/mL U Benzodiazepines Scrn (Zgrcyc=774) ng/mL Urine Cocaine Screen (Cutoff= 300) ng/mL U Marijuana (THC) Screen (Cutoff = 50) ng/mL IgG (768-1632) mg/dL IgA (68-408) mg/dL IgM (35-263) mg/dL VICTOR MANUEL Screen (None Detected) VICTOR MANUEL Titer (<1:40) Myeloperoxidase Ab (0-19) AU/mL Anti-ds DNA IgG Ab (None Detected) Glomerular Base Mem IgG (0-19) AU/mL Glomer Base Mem IgG IFA (Negative) Serine Protease 3 Ab (0-19) AU/mL Complement C3 (88-201) mg/dL Complement C4 (10-40) mg/dL Free Trego LC, Quant (0.33-1.94) mg/dL Free Lambda LC, Quant (0.57-2.63) mg/dL Free Trego/Lambda Ratio (0.26-1.65) Hep Bs Antigen (Nonreactive) Hep Bs Antibody mIU/mL Specimen Rejected 04/24/16 04/24/16 04/24/16 Range/Units 10:32 12:00 16:06 WBC (4.3-11.1) K/mcL RBC (3.82-4.97) M/mcL Hgb (11.5-15.4) g/dL Hct (35.3-44.9) % MCV (83.0-100.0) fL MCH (28.0-33.3) pg MCHC (31.6-35.5) g/dL RDW (11.5-14.5) % Plt Count (140-400) K/mcL MPV (9.4-12.4) fL Immature Gran % (0-4) % Seg Neutrophils % % Band Neutrophils % (0-4) % Lymphocytes % % Monocytes % % Eosinophils % % Basophils % % Neutrophils # (1.6-8.9) K/mcL Lymphocytes # (0.6-4.6) K/mcL Monocytes # (0.0-1.3) K/mcL Eosinophils # (0.0-0.6) K/mcL Basophils # (0.0-0.2) K/mcL Reactive Lymphocytes (Not Present) Platelet Estimate (Normal) Immature Plt Fraction (1.1-6.1) % Polychromasia (Not Present) Poikilocytosis (Not Present) Anisocytosis (Not Present) Microcytosis (Not Present) Macrocytosis (Not Present) Ovalocytes (Not Present) ESR (0-15) mm/hr PT 36.2 H (9.4-12.1) Seconds INR 3.2 APTT Fibrinogen (169-393) mg/dL D-Dimer (0-500) ng/mLFEU Heparin Anti-Xa, Unfract (0.30-0.70) IU/mL VBG pH (7.32-7.42) pH Units VBG pCO2 (41-51) mmHg VBG pO2 (25-40) mmHg VBG HCO3 (21-27) mEq/L Sodium (136-145) mEq/L Potassium (3.5-4.5) mEq/L Chloride (98-109) mEq/L Carbon Dioxide (19-29) mEq/L BUN (7-20) mg/dL Creatinine (0.57-1.11) mg/dL Est GFR ( Amer) (> 60) Est GFR (Non-Af Amer) (> 60) BUN/Creatinine Ratio (6-26) Glucose (70-99) mg/dL POC Glucose 138 H 178 H (58-89) Est Mean Plasma Glucose mg/dl Hemoglobin A1c ( - 5.6) % Calculated Osmolality (280-300) Lactic Acid (0.5-2.2) mmol/L Uric Acid (2.6-6.0) mg/dL Calcium (8.6-10.8) mg/dL Ionized Calcium (1.15-1.35) mmol/L Phosphorus (2.3-4.7) mg/dL Magnesium (1.6-2.6) mg/dL Total Bilirubin (0.2-1.2) mg/dL Direct Bilirubin (0.0-0.5) mg/dL Indirect Bilirubin (0.0-1.2) mg/dL AST (5-34) Units/L ALT (0-55) Units/L Alkaline Phosphatase (38-126) Units/L Creatine Kinase (29-168) Units/L Troponin I (0-0.03) ng/mL C-Reactive Protein (Less than 5) mg/L B-Natriuretic Peptide (0-100) pg/mL Prot Electrophor EER Serum Total Protein (6.0-8.3) g/dL Total Protein (PEP) (6.00-8.30) g/dL Albumin (3.5-5.0) g/dL Albumin (PEP) (3.75-5.01) g/dL Globulin (2.4-3.5) g/dL Albumin/Globulin Ratio (1.1-2.2) Pcqvt-0-Opsomzjix (0.19-0.46) g/dL Nwlym-0-Otauwcouo (0.48-1.05) g/dL Beta Globulins (0.48-1.10) g/dL Gamma Globulins (0.62-1.51) g/dL PEP Interpretation Triglycerides (< 150) mg/dL Cholesterol (< 200) mg/dL LDL Cholesterol, Calc (0-99) mg/dL VLDL Cholesterol, Calc (< 31) mg/dL HDL Cholesterol (40-59) mg/dL Cholesterol/HDL Ratio (0-4.9) TSH (0.350-4.840) mcIU/mL Free T3 (1.71-3.71) pg/mL Serum Immunofix Reflex Urine Color (Yellow) Urine Clarity (Clear) Urine pH (5.0-8.0) pH Units Ur Specific [place] (1.010-1.025) Urine Protein (Neg-Trace) mg/dL Urine Glucose (UA) (Normal) mg/dL Urine Ketones (Negative) mg/dL Urine Blood (Negative) Urine Nitrite (Negative) Urine Bilirubin (Negative) Urine Urobilinogen (Normal) mg/dL Ur Leukocyte Esterase (Negative) Urine Microscopic RBC (0-3) per hpf Urine Microscopic WBC (0-3) per hpf Ur Squamous Epith Cells (None-Few) per lpf Urine Bacteria (None-Few) per hpf Hyaline Casts (None-Few) per lpf Urine Yeast (None Seen) per hpf Urine Creatinine mg/dL Protein/Creatinin Ratio (0-0.20) mg/mg Urine Total Protein (1-14) mg/dL Vancomycin Trough (10-20) mcg/mL Random Vancomycin mcg/mL Urine Opiates Screen (Jrhiru=070) ng/mL Ur Barbiturates Screen (Mlmwjk=734) ng/mL Ur Phencyclidine Scrn (Cutoff=25) ng/mL Ur Amphetamines Screen (Poulyw=3667) ng/mL U Benzodiazepines Scrn (Jhopov=782) ng/mL Urine Cocaine Screen (Cutoff= 300) ng/mL U Marijuana (THC) Screen (Cutoff = 50) ng/mL IgG (768-1632) mg/dL IgA (68-408) mg/dL IgM (35-263) mg/dL VICTOR MANUEL Screen (None Detected) VICTOR MANUEL Titer (<1:40) Myeloperoxidase Ab (0-19) AU/mL Anti-ds DNA IgG Ab (None Detected) Glomerular Base Mem IgG (0-19) AU/mL Glomer Base Mem IgG IFA (Negative) Serine Protease 3 Ab (0-19) AU/mL Complement C3 (88-201) mg/dL Complement C4 (10-40) mg/dL Free Trego LC, Quant (0.33-1.94) mg/dL Free Lambda LC, Quant (0.57-2.63) mg/dL Free Trego/Lambda Ratio (0.26-1.65) Hep Bs Antigen (Nonreactive) Hep Bs Antibody mIU/mL Specimen Rejected 04/24/16 04/25/16 04/25/16 Range/Units 20:28 04:21 04:21 WBC 4.3 (4.3-11.1) K/mcL RBC 3.43 L (3.82-4.97) M/mcL Hgb 8.3 L (11.5-15.4) g/dL Hct 28.2 L (35.3-44.9) % MCV 82.2 L (83.0-100.0) fL MCH 24.2 L (28.0-33.3) pg MCHC 29.4 L (31.6-35.5) g/dL RDW 19.4 H (11.5-14.5) % Plt Count 112 L (140-400) K/mcL MPV 12.2 (9.4-12.4) fL Immature Gran % (0-4) % Seg Neutrophils % 66.0 % Band Neutrophils % 6.0 H (0-4) % Lymphocytes % 20.0 % Monocytes % 8.0 % Eosinophils % % Basophils % % Neutrophils # 3.1 (1.6-8.9) K/mcL Lymphocytes # 0.9 (0.6-4.6) K/mcL Monocytes # 0.3 (0.0-1.3) K/mcL Eosinophils # (0.0-0.6) K/mcL Basophils # (0.0-0.2) K/mcL Reactive Lymphocytes (Not Present) Platelet Estimate Slight Decrease L (Normal) Immature Plt Fraction (1.1-6.1) % Polychromasia (Not Present) Poikilocytosis (Not Present) Anisocytosis (Not Present) Microcytosis (Not Present) Macrocytosis (Not Present) Ovalocytes (Not Present) ESR (0-15) mm/hr PT 52.0 H* (9.4-12.1) Seconds INR 4.6 H* APTT Fibrinogen (169-393) mg/dL D-Dimer (0-500) ng/mLFEU Heparin Anti-Xa, Unfract (0.30-0.70) IU/mL VBG pH (7.32-7.42) pH Units VBG pCO2 (41-51) mmHg VBG pO2 (25-40) mmHg VBG HCO3 (21-27) mEq/L Sodium (136-145) mEq/L Potassium (3.5-4.5) mEq/L Chloride (98-109) mEq/L Carbon Dioxide (19-29) mEq/L BUN (7-20) mg/dL Creatinine (0.57-1.11) mg/dL Est GFR ( Amer) (> 60) Est GFR (Non-Af Amer) (> 60) BUN/Creatinine Ratio (6-26) Glucose (70-99) mg/dL POC Glucose 134 H (58-89) Est Mean Plasma Glucose mg/dl Hemoglobin A1c ( - 5.6) % Calculated Osmolality (280-300) Lactic Acid (0.5-2.2) mmol/L Uric Acid (2.6-6.0) mg/dL Calcium (8.6-10.8) mg/dL Ionized Calcium (1.15-1.35) mmol/L Phosphorus (2.3-4.7) mg/dL Magnesium (1.6-2.6) mg/dL Total Bilirubin (0.2-1.2) mg/dL Direct Bilirubin (0.0-0.5) mg/dL Indirect Bilirubin (0.0-1.2) mg/dL AST (5-34) Units/L ALT (0-55) Units/L Alkaline Phosphatase (38-126) Units/L Creatine Kinase (29-168) Units/L Troponin I (0-0.03) ng/mL C-Reactive Protein (Less than 5) mg/L B-Natriuretic Peptide (0-100) pg/mL Prot Electrophor EER Serum Total Protein (6.0-8.3) g/dL Total Protein (PEP) (6.00-8.30) g/dL Albumin (3.5-5.0) g/dL Albumin (PEP) (3.75-5.01) g/dL Globulin (2.4-3.5) g/dL Albumin/Globulin Ratio (1.1-2.2) Gzynl-7-Xzmitcirp (0.19-0.46) g/dL Yxqka-3-Fvdyiviku (0.48-1.05) g/dL Beta Globulins (0.48-1.10) g/dL Gamma Globulins (0.62-1.51) g/dL PEP Interpretation Triglycerides (< 150) mg/dL Cholesterol (< 200) mg/dL LDL Cholesterol, Calc (0-99) mg/dL VLDL Cholesterol, Calc (< 31) mg/dL HDL Cholesterol (40-59) mg/dL Cholesterol/HDL Ratio (0-4.9) TSH (0.350-4.840) mcIU/mL Free T3 (1.71-3.71) pg/mL Serum Immunofix Reflex Urine Color (Yellow) Urine Clarity (Clear) Urine pH (5.0-8.0) pH Units Ur Specific [place] (1.010-1.025) Urine Protein (Neg-Trace) mg/dL Urine Glucose (UA) (Normal) mg/dL Urine Ketones (Negative) mg/dL Urine Blood (Negative) Urine Nitrite (Negative) Urine Bilirubin (Negative) Urine Urobilinogen (Normal) mg/dL Ur Leukocyte Esterase (Negative) Urine Microscopic RBC (0-3) per hpf Urine Microscopic WBC (0-3) per hpf Ur Squamous Epith Cells (None-Few) per lpf Urine Bacteria (None-Few) per hpf Hyaline Casts (None-Few) per lpf Urine Yeast (None Seen) per hpf Urine Creatinine mg/dL Protein/Creatinin Ratio (0-0.20) mg/mg Urine Total Protein (1-14) mg/dL Vancomycin Trough (10-20) mcg/mL Random Vancomycin mcg/mL Urine Opiates Screen (Pjecgu=963) ng/mL Ur Barbiturates Screen (Jysmaj=330) ng/mL Ur Phencyclidine Scrn (Cutoff=25) ng/mL Ur Amphetamines Screen (Oyssbp=7539) ng/mL U Benzodiazepines Scrn (Ihkway=979) ng/mL Urine Cocaine Screen (Cutoff= 300) ng/mL U Marijuana (THC) Screen (Cutoff = 50) ng/mL IgG (768-1632) mg/dL IgA (68-408) mg/dL IgM (35-263) mg/dL VICTOR MANUEL Screen (None Detected) VICTOR MANUEL Titer (<1:40) Myeloperoxidase Ab (0-19) AU/mL Anti-ds DNA IgG Ab (None Detected) Glomerular Base Mem IgG (0-19) AU/mL Glomer Base Mem IgG IFA (Negative) Serine Protease 3 Ab (0-19) AU/mL Complement C3 (88-201) mg/dL Complement C4 (10-40) mg/dL Free Trego LC, Quant (0.33-1.94) mg/dL Free Lambda LC, Quant (0.57-2.63) mg/dL Free Trego/Lambda Ratio (0.26-1.65) Hep Bs Antigen (Nonreactive) Hep Bs Antibody mIU/mL Specimen Rejected 04/25/16 04/25/16 04/25/16 Range/Units 04:21 07:10 11:37 WBC (4.3-11.1) K/mcL RBC (3.82-4.97) M/mcL Hgb (11.5-15.4) g/dL Hct (35.3-44.9) % MCV (83.0-100.0) fL MCH (28.0-33.3) pg MCHC (31.6-35.5) g/dL RDW (11.5-14.5) % Plt Count (140-400) K/mcL MPV (9.4-12.4) fL Immature Gran % (0-4) % Seg Neutrophils % % Band Neutrophils % (0-4) % Lymphocytes % % Monocytes % % Eosinophils % % Basophils % % Neutrophils # (1.6-8.9) K/mcL Lymphocytes # (0.6-4.6) K/mcL Monocytes # (0.0-1.3) K/mcL Eosinophils # (0.0-0.6) K/mcL Basophils # (0.0-0.2) K/mcL Reactive Lymphocytes (Not Present) Platelet Estimate (Normal) Immature Plt Fraction (1.1-6.1) % Polychromasia (Not Present) Poikilocytosis (Not Present) Anisocytosis (Not Present) Microcytosis (Not Present) Macrocytosis (Not Present) Ovalocytes (Not Present) ESR (0-15) mm/hr PT (9.4-12.1) Seconds INR APTT Fibrinogen (169-393) mg/dL D-Dimer (0-500) ng/mLFEU Heparin Anti-Xa, Unfract (0.30-0.70) IU/mL VBG pH (7.32-7.42) pH Units VBG pCO2 (41-51) mmHg VBG pO2 (25-40) mmHg VBG HCO3 (21-27) mEq/L Sodium 142 (136-145) mEq/L Potassium 3.7 (3.5-4.5) mEq/L Chloride 108 (98-109) mEq/L Carbon Dioxide 26 (19-29) mEq/L BUN 40 H (7-20) mg/dL Creatinine 2.53 H (0.57-1.11) mg/dL Est GFR ( Amer) 22 L (> 60) Est GFR (Non-Af Amer) 19 L (> 60) BUN/Creatinine Ratio 16 (6-26) Glucose 121 H (70-99) mg/dL POC Glucose 114 H 161 H (58-89) Est Mean Plasma Glucose mg/dl Hemoglobin A1c ( - 5.6) % Calculated Osmolality 305 H (280-300) Lactic Acid (0.5-2.2) mmol/L Uric Acid (2.6-6.0) mg/dL Calcium 7.2 L (8.6-10.8) mg/dL Ionized Calcium (1.15-1.35) mmol/L Phosphorus (2.3-4.7) mg/dL Magnesium (1.6-2.6) mg/dL Total Bilirubin 0.3 (0.2-1.2) mg/dL Direct Bilirubin 0.2 (0.0-0.5) mg/dL Indirect Bilirubin 0.1 (0.0-1.2) mg/dL AST 39 H (5-34) Units/L ALT 12 (0-55) Units/L Alkaline Phosphatase 71 (38-126) Units/L Creatine Kinase (29-168) Units/L Troponin I (0-0.03) ng/mL C-Reactive Protein (Less than 5) mg/L B-Natriuretic Peptide (0-100) pg/mL Prot Electrophor EER Serum Total Protein 4.7 L (6.0-8.3) g/dL Total Protein (PEP) (6.00-8.30) g/dL Albumin 1.5 L (3.5-5.0) g/dL Albumin (PEP) (3.75-5.01) g/dL Globulin 3.2 (2.4-3.5) g/dL Albumin/Globulin Ratio 0.5 L (1.1-2.2) Lxdtj-0-Dkrdrfhip (0.19-0.46) g/dL Oagvl-1-Ggvgkvozc (0.48-1.05) g/dL Beta Globulins (0.48-1.10) g/dL Gamma Globulins (0.62-1.51) g/dL PEP Interpretation Triglycerides (< 150) mg/dL Cholesterol (< 200) mg/dL LDL Cholesterol, Calc (0-99) mg/dL VLDL Cholesterol, Calc (< 31) mg/dL HDL Cholesterol (40-59) mg/dL Cholesterol/HDL Ratio (0-4.9) TSH (0.350-4.840) mcIU/mL Free T3 (1.71-3.71) pg/mL Serum Immunofix Reflex Urine Color (Yellow) Urine Clarity (Clear) Urine pH (5.0-8.0) pH Units Ur Specific [place] (1.010-1.025) Urine Protein (Neg-Trace) mg/dL Urine Glucose (UA) (Normal) mg/dL Urine Ketones (Negative) mg/dL Urine Blood (Negative) Urine Nitrite (Negative) Urine Bilirubin (Negative) Urine Urobilinogen (Normal) mg/dL Ur Leukocyte Esterase (Negative) Urine Microscopic RBC (0-3) per hpf Urine Microscopic WBC (0-3) per hpf Ur Squamous Epith Cells (None-Few) per lpf Urine Bacteria (None-Few) per hpf Hyaline Casts (None-Few) per lpf Urine Yeast (None Seen) per hpf Urine Creatinine mg/dL Protein/Creatinin Ratio (0-0.20) mg/mg Urine Total Protein (1-14) mg/dL Vancomycin Trough (10-20) mcg/mL Random Vancomycin mcg/mL Urine Opiates Screen (Gpdtap=575) ng/mL Ur Barbiturates Screen (Ncbfsj=611) ng/mL Ur Phencyclidine Scrn (Cutoff=25) ng/mL Ur Amphetamines Screen (Pcgabf=4152) ng/mL U Benzodiazepines Scrn (Njviav=433) ng/mL Urine Cocaine Screen (Cutoff= 300) ng/mL U Marijuana (THC) Screen (Cutoff = 50) ng/mL IgG (768-1632) mg/dL IgA (68-408) mg/dL IgM (35-263) mg/dL VICTOR MANUEL Screen (None Detected) VICTOR MANUEL Titer (<1:40) Myeloperoxidase Ab (0-19) AU/mL Anti-ds DNA IgG Ab (None Detected) Glomerular Base Mem IgG (0-19) AU/mL Glomer Base Mem IgG IFA (Negative) Serine Protease 3 Ab (0-19) AU/mL Complement C3 (88-201) mg/dL Complement C4 (10-40) mg/dL Free Trego LC, Quant (0.33-1.94) mg/dL Free Lambda LC, Quant (0.57-2.63) mg/dL Free Trego/Lambda Ratio (0.26-1.65) Hep Bs Antigen (Nonreactive) Hep Bs Antibody mIU/mL Specimen Rejected 04/25/16 04/25/16 04/25/16 Range/Units 12:05 15:59 20:00 WBC (4.3-11.1) K/mcL RBC (3.82-4.97) M/mcL Hgb (11.5-15.4) g/dL Hct (35.3-44.9) % MCV (83.0-100.0) fL MCH (28.0-33.3) pg MCHC (31.6-35.5) g/dL RDW (11.5-14.5) % Plt Count (140-400) K/mcL MPV (9.4-12.4) fL Immature Gran % (0-4) % Seg Neutrophils % % Band Neutrophils % (0-4) % Lymphocytes % % Monocytes % % Eosinophils % % Basophils % % Neutrophils # (1.6-8.9) K/mcL Lymphocytes # (0.6-4.6) K/mcL Monocytes # (0.0-1.3) K/mcL Eosinophils # (0.0-0.6) K/mcL Basophils # (0.0-0.2) K/mcL Reactive Lymphocytes (Not Present) Platelet Estimate (Normal) Immature Plt Fraction (1.1-6.1) % Polychromasia (Not Present) Poikilocytosis (Not Present) Anisocytosis (Not Present) Microcytosis (Not Present) Macrocytosis (Not Present) Ovalocytes (Not Present) ESR (0-15) mm/hr PT 57.2 H* (9.4-12.1) Seconds INR 5.0 H* APTT Fibrinogen (169-393) mg/dL D-Dimer (0-500) ng/mLFEU Heparin Anti-Xa, Unfract (0.30-0.70) IU/mL VBG pH (7.32-7.42) pH Units VBG pCO2 (41-51) mmHg VBG pO2 (25-40) mmHg VBG HCO3 (21-27) mEq/L Sodium (136-145) mEq/L Potassium (3.5-4.5) mEq/L Chloride (98-109) mEq/L Carbon Dioxide (19-29) mEq/L BUN (7-20) mg/dL Creatinine (0.57-1.11) mg/dL Est GFR ( Amer) (> 60) Est GFR (Non-Af Amer) (> 60) BUN/Creatinine Ratio (6-26) Glucose (70-99) mg/dL POC Glucose 194 H 182 H (58-89) Est Mean Plasma Glucose mg/dl Hemoglobin A1c ( - 5.6) % Calculated Osmolality (280-300) Lactic Acid (0.5-2.2) mmol/L Uric Acid (2.6-6.0) mg/dL Calcium (8.6-10.8) mg/dL Ionized Calcium (1.15-1.35) mmol/L Phosphorus (2.3-4.7) mg/dL Magnesium (1.6-2.6) mg/dL Total Bilirubin (0.2-1.2) mg/dL Direct Bilirubin (0.0-0.5) mg/dL Indirect Bilirubin (0.0-1.2) mg/dL AST (5-34) Units/L ALT (0-55) Units/L Alkaline Phosphatase (38-126) Units/L Creatine Kinase (29-168) Units/L Troponin I (0-0.03) ng/mL C-Reactive Protein (Less than 5) mg/L B-Natriuretic Peptide (0-100) pg/mL Prot Electrophor EER Serum Total Protein (6.0-8.3) g/dL Total Protein (PEP) (6.00-8.30) g/dL Albumin (3.5-5.0) g/dL Albumin (PEP) (3.75-5.01) g/dL Globulin (2.4-3.5) g/dL Albumin/Globulin Ratio (1.1-2.2) Bscoh-1-Nfkqapywt (0.19-0.46) g/dL Ymqju-2-Fhbuyvqhk (0.48-1.05) g/dL Beta Globulins (0.48-1.10) g/dL Gamma Globulins (0.62-1.51) g/dL PEP Interpretation Triglycerides (< 150) mg/dL Cholesterol (< 200) mg/dL LDL Cholesterol, Calc (0-99) mg/dL VLDL Cholesterol, Calc (< 31) mg/dL HDL Cholesterol (40-59) mg/dL Cholesterol/HDL Ratio (0-4.9) TSH (0.350-4.840) mcIU/mL Free T3 (1.71-3.71) pg/mL Serum Immunofix Reflex Urine Color (Yellow) Urine Clarity (Clear) Urine pH (5.0-8.0) pH Units Ur Specific [place] (1.010-1.025) Urine Protein (Neg-Trace) mg/dL Urine Glucose (UA) (Normal) mg/dL Urine Ketones (Negative) mg/dL Urine Blood (Negative) Urine Nitrite (Negative) Urine Bilirubin (Negative) Urine Urobilinogen (Normal) mg/dL Ur Leukocyte Esterase (Negative) Urine Microscopic RBC (0-3) per hpf Urine Microscopic WBC (0-3) per hpf Ur Squamous Epith Cells (None-Few) per lpf Urine Bacteria (None-Few) per hpf Hyaline Casts (None-Few) per lpf Urine Yeast (None Seen) per hpf Urine Creatinine mg/dL Protein/Creatinin Ratio (0-0.20) mg/mg Urine Total Protein (1-14) mg/dL Vancomycin Trough (10-20) mcg/mL Random Vancomycin mcg/mL Urine Opiates Screen (Ufuxsq=060) ng/mL Ur Barbiturates Screen (Prrsdh=236) ng/mL Ur Phencyclidine Scrn (Cutoff=25) ng/mL Ur Amphetamines Screen (Qmtgqa=0913) ng/mL U Benzodiazepines Scrn (Bhhsmg=254) ng/mL Urine Cocaine Screen (Cutoff= 300) ng/mL U Marijuana (THC) Screen (Cutoff = 50) ng/mL IgG (768-1632) mg/dL IgA (68-408) mg/dL IgM (35-263) mg/dL VICTOR MANUEL Screen (None Detected) VICTOR MANUEL Titer (<1:40) Myeloperoxidase Ab (0-19) AU/mL Anti-ds DNA IgG Ab (None Detected) Glomerular Base Mem IgG (0-19) AU/mL Glomer Base Mem IgG IFA (Negative) Serine Protease 3 Ab (0-19) AU/mL Complement C3 (88-201) mg/dL Complement C4 (10-40) mg/dL Free Trego LC, Quant (0.33-1.94) mg/dL Free Lambda LC, Quant (0.57-2.63) mg/dL Free Trego/Lambda Ratio (0.26-1.65) Hep Bs Antigen (Nonreactive) Hep Bs Antibody mIU/mL Specimen Rejected 04/26/16 04/26/16 04/26/16 Range/Units 04:05 04:05 07:26 WBC (4.3-11.1) K/mcL RBC (3.82-4.97) M/mcL Hgb (11.5-15.4) g/dL Hct (35.3-44.9) % MCV (83.0-100.0) fL MCH (28.0-33.3) pg MCHC (31.6-35.5) g/dL RDW (11.5-14.5) % Plt Count (140-400) K/mcL MPV (9.4-12.4) fL Immature Gran % (0-4) % Seg Neutrophils % % Band Neutrophils % (0-4) % Lymphocytes % % Monocytes % % Eosinophils % % Basophils % % Neutrophils # (1.6-8.9) K/mcL Lymphocytes # (0.6-4.6) K/mcL Monocytes # (0.0-1.3) K/mcL Eosinophils # (0.0-0.6) K/mcL Basophils # (0.0-0.2) K/mcL Reactive Lymphocytes (Not Present) Platelet Estimate (Normal) Immature Plt Fraction (1.1-6.1) % Polychromasia (Not Present) Poikilocytosis (Not Present) Anisocytosis (Not Present) Microcytosis (Not Present) Macrocytosis (Not Present) Ovalocytes (Not Present) ESR (0-15) mm/hr PT 48.8 H* (9.4-12.1) Seconds INR 4.3 APTT Fibrinogen (169-393) mg/dL D-Dimer (0-500) ng/mLFEU Heparin Anti-Xa, Unfract (0.30-0.70) IU/mL VBG pH (7.32-7.42) pH Units VBG pCO2 (41-51) mmHg VBG pO2 (25-40) mmHg VBG HCO3 (21-27) mEq/L Sodium 139 (136-145) mEq/L Potassium 3.7 (3.5-4.5) mEq/L Chloride 107 (98-109) mEq/L Carbon Dioxide 27 (19-29) mEq/L BUN 43 H (7-20) mg/dL Creatinine 2.93 H (0.57-1.11) mg/dL Est GFR ( Amer) 19 L (> 60) Est GFR (Non-Af Amer) 16 L (> 60) BUN/Creatinine Ratio 15 (6-26) Glucose 178 H (70-99) mg/dL POC Glucose 152 H (58-89) Est Mean Plasma Glucose mg/dl Hemoglobin A1c ( - 5.6) % Calculated Osmolality 303 H (280-300) Lactic Acid (0.5-2.2) mmol/L Uric Acid (2.6-6.0) mg/dL Calcium 7.6 L (8.6-10.8) mg/dL Ionized Calcium (1.15-1.35) mmol/L Phosphorus (2.3-4.7) mg/dL Magnesium (1.6-2.6) mg/dL Total Bilirubin (0.2-1.2) mg/dL Direct Bilirubin (0.0-0.5) mg/dL Indirect Bilirubin (0.0-1.2) mg/dL AST (5-34) Units/L ALT (0-55) Units/L Alkaline Phosphatase (38-126) Units/L Creatine Kinase (29-168) Units/L Troponin I (0-0.03) ng/mL C-Reactive Protein (Less than 5) mg/L B-Natriuretic Peptide (0-100) pg/mL Prot Electrophor EER Serum Total Protein (6.0-8.3) g/dL Total Protein (PEP) (6.00-8.30) g/dL Albumin (3.5-5.0) g/dL Albumin (PEP) (3.75-5.01) g/dL Globulin (2.4-3.5) g/dL Albumin/Globulin Ratio (1.1-2.2) Gmnnw-3-Xwqhdkmhf (0.19-0.46) g/dL Rolbl-9-Ayvmsapgp (0.48-1.05) g/dL Beta Globulins (0.48-1.10) g/dL Gamma Globulins (0.62-1.51) g/dL PEP Interpretation Triglycerides (< 150) mg/dL Cholesterol (< 200) mg/dL LDL Cholesterol, Calc (0-99) mg/dL VLDL Cholesterol, Calc (< 31) mg/dL HDL Cholesterol (40-59) mg/dL Cholesterol/HDL Ratio (0-4.9) TSH (0.350-4.840) mcIU/mL Free T3 (1.71-3.71) pg/mL Serum Immunofix Reflex Urine Color (Yellow) Urine Clarity (Clear) Urine pH (5.0-8.0) pH Units Ur Specific [place] (1.010-1.025) Urine Protein (Neg-Trace) mg/dL Urine Glucose (UA) (Normal) mg/dL Urine Ketones (Negative) mg/dL Urine Blood (Negative) Urine Nitrite (Negative) Urine Bilirubin (Negative) Urine Urobilinogen (Normal) mg/dL Ur Leukocyte Esterase (Negative) Urine Microscopic RBC (0-3) per hpf Urine Microscopic WBC (0-3) per hpf Ur Squamous Epith Cells (None-Few) per lpf Urine Bacteria (None-Few) per hpf Hyaline Casts (None-Few) per lpf Urine Yeast (None Seen) per hpf Urine Creatinine mg/dL Protein/Creatinin Ratio (0-0.20) mg/mg Urine Total Protein (1-14) mg/dL Vancomycin Trough (10-20) mcg/mL Random Vancomycin mcg/mL Urine Opiates Screen (Tegger=203) ng/mL Ur Barbiturates Screen (Cileuo=794) ng/mL Ur Phencyclidine Scrn (Cutoff=25) ng/mL Ur Amphetamines Screen (Wvgjsb=2611) ng/mL U Benzodiazepines Scrn (Ohqytw=241) ng/mL Urine Cocaine Screen (Cutoff= 300) ng/mL U Marijuana (THC) Screen (Cutoff = 50) ng/mL IgG (768-1632) mg/dL IgA (68-408) mg/dL IgM (35-263) mg/dL VICTOR MANUEL Screen (None Detected) VICTOR MANUEL Titer (<1:40) Myeloperoxidase Ab (0-19) AU/mL Anti-ds DNA IgG Ab (None Detected) Glomerular Base Mem IgG (0-19) AU/mL Glomer Base Mem IgG IFA (Negative) Serine Protease 3 Ab (0-19) AU/mL Complement C3 (88-201) mg/dL Complement C4 (10-40) mg/dL Free Trego LC, Quant (0.33-1.94) mg/dL Free Lambda LC, Quant (0.57-2.63) mg/dL Free Trego/Lambda Ratio (0.26-1.65) Hep Bs Antigen (Nonreactive) Hep Bs Antibody mIU/mL Specimen Rejected 04/26/16 04/26/16 04/26/16 Range/Units 08:30 08:30 08:30 WBC 5.0 (4.3-11.1) K/mcL RBC 3.46 L (3.82-4.97) M/mcL Hgb 8.2 L (11.5-15.4) g/dL Hct 27.9 L (35.3-44.9) % MCV 80.6 L (83.0-100.0) fL MCH 23.7 L (28.0-33.3) pg MCHC 29.4 L (31.6-35.5) g/dL RDW 19.1 H (11.5-14.5) % Plt Count 127 L (140-400) K/mcL MPV 11.7 (9.4-12.4) fL Immature Gran % 1.0 (0-4) % Seg Neutrophils % 74.2 % Band Neutrophils % (0-4) % Lymphocytes % 15.6 % Monocytes % 9.0 % Eosinophils % 0.2 % Basophils % 0.0 % Neutrophils # 3.7 (1.6-8.9) K/mcL Lymphocytes # 0.8 (0.6-4.6) K/mcL Monocytes # 0.5 (0.0-1.3) K/mcL Eosinophils # 0.0 (0.0-0.6) K/mcL Basophils # 0.0 (0.0-0.2) K/mcL Reactive Lymphocytes Present A (Not Present) Platelet Estimate Decreased L (Normal) Immature Plt Fraction (1.1-6.1) % Polychromasia (Not Present) Poikilocytosis (Not Present) Anisocytosis 2+ A (Not Present) Microcytosis Present A (Not Present) Macrocytosis (Not Present) Ovalocytes (Not Present) ESR (0-15) mm/hr PT (9.4-12.1) Seconds INR APTT Fibrinogen (169-393) mg/dL D-Dimer (0-500) ng/mLFEU Heparin Anti-Xa, Unfract (0.30-0.70) IU/mL VBG pH (7.32-7.42) pH Units VBG pCO2 (41-51) mmHg VBG pO2 (25-40) mmHg VBG HCO3 (21-27) mEq/L Sodium 140 (136-145) mEq/L Potassium 3.8 (3.5-4.5) mEq/L Chloride 108 (98-109) mEq/L Carbon Dioxide 25 (19-29) mEq/L BUN 43 H (7-20) mg/dL Creatinine 2.99 H (0.57-1.11) mg/dL Est GFR ( Amer) 19 L (> 60) Est GFR (Non-Af Amer) 15 L (> 60) BUN/Creatinine Ratio 14 (6-26) Glucose 181 H (70-99) mg/dL POC Glucose (58-89) Est Mean Plasma Glucose mg/dl Hemoglobin A1c ( - 5.6) % Calculated Osmolality 305 H (280-300) Lactic Acid (0.5-2.2) mmol/L Uric Acid (2.6-6.0) mg/dL Calcium 7.3 L (8.6-10.8) mg/dL Ionized Calcium (1.15-1.35) mmol/L Phosphorus (2.3-4.7) mg/dL Magnesium (1.6-2.6) mg/dL Total Bilirubin (0.2-1.2) mg/dL Direct Bilirubin (0.0-0.5) mg/dL Indirect Bilirubin (0.0-1.2) mg/dL AST (5-34) Units/L ALT (0-55) Units/L Alkaline Phosphatase (38-126) Units/L Creatine Kinase (29-168) Units/L Troponin I (0-0.03) ng/mL C-Reactive Protein (Less than 5) mg/L B-Natriuretic Peptide 1159 H (0-100) pg/mL Prot Electrophor EER Serum Total Protein (6.0-8.3) g/dL Total Protein (PEP) (6.00-8.30) g/dL Albumin (3.5-5.0) g/dL Albumin (PEP) (3.75-5.01) g/dL Globulin (2.4-3.5) g/dL Albumin/Globulin Ratio (1.1-2.2) Sznsk-6-Ewerehqpf (0.19-0.46) g/dL Uikyj-8-Sviidmgyc (0.48-1.05) g/dL Beta Globulins (0.48-1.10) g/dL Gamma Globulins (0.62-1.51) g/dL PEP Interpretation Triglycerides (< 150) mg/dL Cholesterol (< 200) mg/dL LDL Cholesterol, Calc (0-99) mg/dL VLDL Cholesterol, Calc (< 31) mg/dL HDL Cholesterol (40-59) mg/dL Cholesterol/HDL Ratio (0-4.9) TSH (0.350-4.840) mcIU/mL Free T3 (1.71-3.71) pg/mL Serum Immunofix Reflex Urine Color (Yellow) Urine Clarity (Clear) Urine pH (5.0-8.0) pH Units Ur Specific [place] (1.010-1.025) Urine Protein (Neg-Trace) mg/dL Urine Glucose (UA) (Normal) mg/dL Urine Ketones (Negative) mg/dL Urine Blood (Negative) Urine Nitrite (Negative) Urine Bilirubin (Negative) Urine Urobilinogen (Normal) mg/dL Ur Leukocyte Esterase (Negative) Urine Microscopic RBC (0-3) per hpf Urine Microscopic WBC (0-3) per hpf Ur Squamous Epith Cells (None-Few) per lpf Urine Bacteria (None-Few) per hpf Hyaline Casts (None-Few) per lpf Urine Yeast (None Seen) per hpf Urine Creatinine mg/dL Protein/Creatinin Ratio (0-0.20) mg/mg Urine Total Protein (1-14) mg/dL Vancomycin Trough (10-20) mcg/mL Random Vancomycin mcg/mL Urine Opiates Screen (Uvmaec=915) ng/mL Ur Barbiturates Screen (Aritlr=355) ng/mL Ur Phencyclidine Scrn (Cutoff=25) ng/mL Ur Amphetamines Screen (Qypmff=2635) ng/mL U Benzodiazepines Scrn (Sotmwk=787) ng/mL Urine Cocaine Screen (Cutoff= 300) ng/mL U Marijuana (THC) Screen (Cutoff = 50) ng/mL IgG (768-1632) mg/dL IgA (68-408) mg/dL IgM (35-263) mg/dL VICTOR MANUEL Screen (None Detected) VICTOR MANUEL Titer (<1:40) Myeloperoxidase Ab (0-19) AU/mL Anti-ds DNA IgG Ab (None Detected) Glomerular Base Mem IgG (0-19) AU/mL Glomer Base Mem IgG IFA (Negative) Serine Protease 3 Ab (0-19) AU/mL Complement C3 (88-201) mg/dL Complement C4 (10-40) mg/dL Free Trego LC, Quant (0.33-1.94) mg/dL Free Lambda LC, Quant (0.57-2.63) mg/dL Free Trego/Lambda Ratio (0.26-1.65) Hep Bs Antigen (Nonreactive) Hep Bs Antibody mIU/mL Specimen Rejected 04/26/16 04/26/16 04/26/16 Range/Units 09:15 09:15 11:00 WBC (4.3-11.1) K/mcL RBC (3.82-4.97) M/mcL Hgb (11.5-15.4) g/dL Hct (35.3-44.9) % MCV (83.0-100.0) fL MCH (28.0-33.3) pg MCHC (31.6-35.5) g/dL RDW (11.5-14.5) % Plt Count (140-400) K/mcL MPV (9.4-12.4) fL Immature Gran % (0-4) % Seg Neutrophils % % Band Neutrophils % (0-4) % Lymphocytes % % Monocytes % % Eosinophils % % Basophils % % Neutrophils # (1.6-8.9) K/mcL Lymphocytes # (0.6-4.6) K/mcL Monocytes # (0.0-1.3) K/mcL Eosinophils # (0.0-0.6) K/mcL Basophils # (0.0-0.2) K/mcL Reactive Lymphocytes (Not Present) Platelet Estimate (Normal) Immature Plt Fraction (1.1-6.1) % Polychromasia (Not Present) Poikilocytosis (Not Present) Anisocytosis (Not Present) Microcytosis (Not Present) Macrocytosis (Not Present) Ovalocytes (Not Present) ESR (0-15) mm/hr PT (9.4-12.1) Seconds INR APTT Fibrinogen (169-393) mg/dL D-Dimer (0-500) ng/mLFEU Heparin Anti-Xa, Unfract (0.30-0.70) IU/mL VBG pH (7.32-7.42) pH Units VBG pCO2 (41-51) mmHg VBG pO2 (25-40) mmHg VBG HCO3 (21-27) mEq/L Sodium (136-145) mEq/L Potassium (3.5-4.5) mEq/L Chloride (98-109) mEq/L Carbon Dioxide (19-29) mEq/L BUN (7-20) mg/dL Creatinine (0.57-1.11) mg/dL Est GFR ( Amer) (> 60) Est GFR (Non-Af Amer) (> 60) BUN/Creatinine Ratio (6-26) Glucose (70-99) mg/dL POC Glucose (58-89) Est Mean Plasma Glucose mg/dl Hemoglobin A1c ( - 5.6) % Calculated Osmolality (280-300) Lactic Acid (0.5-2.2) mmol/L Uric Acid (2.6-6.0) mg/dL Calcium (8.6-10.8) mg/dL Ionized Calcium (1.15-1.35) mmol/L Phosphorus (2.3-4.7) mg/dL Magnesium (1.6-2.6) mg/dL Total Bilirubin (0.2-1.2) mg/dL Direct Bilirubin (0.0-0.5) mg/dL Indirect Bilirubin (0.0-1.2) mg/dL AST (5-34) Units/L ALT (0-55) Units/L Alkaline Phosphatase (38-126) Units/L Creatine Kinase (29-168) Units/L Troponin I (0-0.03) ng/mL C-Reactive Protein (Less than 5) mg/L B-Natriuretic Peptide (0-100) pg/mL Prot Electrophor EER Serum Total Protein (6.0-8.3) g/dL Total Protein (PEP) (6.00-8.30) g/dL Albumin (3.5-5.0) g/dL Albumin (PEP) (3.75-5.01) g/dL Globulin (2.4-3.5) g/dL Albumin/Globulin Ratio (1.1-2.2) Ywwgn-8-Ugrixpynq (0.19-0.46) g/dL Jsega-4-Klzaokcqx (0.48-1.05) g/dL Beta Globulins (0.48-1.10) g/dL Gamma Globulins (0.62-1.51) g/dL PEP Interpretation Triglycerides (< 150) mg/dL Cholesterol (< 200) mg/dL LDL Cholesterol, Calc (0-99) mg/dL VLDL Cholesterol, Calc (< 31) mg/dL HDL Cholesterol (40-59) mg/dL Cholesterol/HDL Ratio (0-4.9) TSH (0.350-4.840) mcIU/mL Free T3 (1.71-3.71) pg/mL Serum Immunofix Reflex Urine Color Red A (Yellow) Urine Clarity Cloudy A (Clear) Urine pH 5.0 (5.0-8.0) pH Units Ur Specific [place] 1.026 H (1.010-1.025) Urine Protein >=300 H (Neg-Trace) mg/dL Urine Glucose (UA) Normal (Normal) mg/dL Urine Ketones Trace H (Negative) mg/dL Urine Blood Small H (Negative) Urine Nitrite Positive A (Negative) Urine Bilirubin Small H (Negative) Urine Urobilinogen Normal (Normal) mg/dL Ur Leukocyte Esterase Moderate H (Negative) Urine Microscopic RBC 5-15 H (0-3) per hpf Urine Microscopic WBC 50-100 H (0-3) per hpf Ur Squamous Epith Cells Many H (None-Few) per lpf Urine Bacteria None Seen (None-Few) per hpf Hyaline Casts (None-Few) per lpf Urine Yeast Many H (None Seen) per hpf Urine Creatinine 247 mg/dL Protein/Creatinin Ratio 0.79 H (0-0.20) mg/mg Urine Total Protein 195 H (1-14) mg/dL Vancomycin Trough (10-20) mcg/mL Random Vancomycin mcg/mL Urine Opiates Screen (Pxjtbm=754) ng/mL Ur Barbiturates Screen (Umsfpa=443) ng/mL Ur Phencyclidine Scrn (Cutoff=25) ng/mL Ur Amphetamines Screen (Vinxlf=0198) ng/mL U Benzodiazepines Scrn (Ccpyfd=802) ng/mL Urine Cocaine Screen (Cutoff= 300) ng/mL U Marijuana (THC) Screen (Cutoff = 50) ng/mL IgG (768-1632) mg/dL IgA (68-408) mg/dL IgM (35-263) mg/dL VICTOR MANUEL Screen (None Detected) VICTOR MANUEL Titer (<1:40) Myeloperoxidase Ab (0-19) AU/mL Anti-ds DNA IgG Ab (None Detected) Glomerular Base Mem IgG (0-19) AU/mL Glomer Base Mem IgG IFA (Negative) Serine Protease 3 Ab (0-19) AU/mL Complement C3 67 L (88-201) mg/dL Complement C4 20 (10-40) mg/dL Free Trego LC, Quant (0.33-1.94) mg/dL Free Lambda LC, Quant (0.57-2.63) mg/dL Free Trego/Lambda Ratio (0.26-1.65) Hep Bs Antigen (Nonreactive) Hep Bs Antibody mIU/mL Specimen Rejected 04/26/16 04/26/16 04/26/16 Range/Units 11:10 16:03 19:59 WBC (4.3-11.1) K/mcL RBC (3.82-4.97) M/mcL Hgb (11.5-15.4) g/dL Hct (35.3-44.9) % MCV (83.0-100.0) fL MCH (28.0-33.3) pg MCHC (31.6-35.5) g/dL RDW (11.5-14.5) % Plt Count (140-400) K/mcL MPV (9.4-12.4) fL Immature Gran % (0-4) % Seg Neutrophils % % Band Neutrophils % (0-4) % Lymphocytes % % Monocytes % % Eosinophils % % Basophils % % Neutrophils # (1.6-8.9) K/mcL Lymphocytes # (0.6-4.6) K/mcL Monocytes # (0.0-1.3) K/mcL Eosinophils # (0.0-0.6) K/mcL Basophils # (0.0-0.2) K/mcL Reactive Lymphocytes (Not Present) Platelet Estimate (Normal) Immature Plt Fraction (1.1-6.1) % Polychromasia (Not Present) Poikilocytosis (Not Present) Anisocytosis (Not Present) Microcytosis (Not Present) Macrocytosis (Not Present) Ovalocytes (Not Present) ESR (0-15) mm/hr PT (9.4-12.1) Seconds INR APTT Fibrinogen (169-393) mg/dL D-Dimer (0-500) ng/mLFEU Heparin Anti-Xa, Unfract (0.30-0.70) IU/mL VBG pH (7.32-7.42) pH Units VBG pCO2 (41-51) mmHg VBG pO2 (25-40) mmHg VBG HCO3 (21-27) mEq/L Sodium (136-145) mEq/L Potassium (3.5-4.5) mEq/L Chloride (98-109) mEq/L Carbon Dioxide (19-29) mEq/L BUN (7-20) mg/dL Creatinine (0.57-1.11) mg/dL Est GFR ( Amer) (> 60) Est GFR (Non-Af Amer) (> 60) BUN/Creatinine Ratio (6-26) Glucose (70-99) mg/dL POC Glucose 168 H 159 H 144 H (58-89) Est Mean Plasma Glucose mg/dl Hemoglobin A1c ( - 5.6) % Calculated Osmolality (280-300) Lactic Acid (0.5-2.2) mmol/L Uric Acid (2.6-6.0) mg/dL Calcium (8.6-10.8) mg/dL Ionized Calcium (1.15-1.35) mmol/L Phosphorus (2.3-4.7) mg/dL Magnesium (1.6-2.6) mg/dL Total Bilirubin (0.2-1.2) mg/dL Direct Bilirubin (0.0-0.5) mg/dL Indirect Bilirubin (0.0-1.2) mg/dL AST (5-34) Units/L ALT (0-55) Units/L Alkaline Phosphatase (38-126) Units/L Creatine Kinase (29-168) Units/L Troponin I (0-0.03) ng/mL C-Reactive Protein (Less than 5) mg/L B-Natriuretic Peptide (0-100) pg/mL Prot Electrophor EER Serum Total Protein (6.0-8.3) g/dL Total Protein (PEP) (6.00-8.30) g/dL Albumin (3.5-5.0) g/dL Albumin (PEP) (3.75-5.01) g/dL Globulin (2.4-3.5) g/dL Albumin/Globulin Ratio (1.1-2.2) Rgiux-2-Poldbkebf (0.19-0.46) g/dL Jvejx-8-Plfmfakmq (0.48-1.05) g/dL Beta Globulins (0.48-1.10) g/dL Gamma Globulins (0.62-1.51) g/dL PEP Interpretation Triglycerides (< 150) mg/dL Cholesterol (< 200) mg/dL LDL Cholesterol, Calc (0-99) mg/dL VLDL Cholesterol, Calc (< 31) mg/dL HDL Cholesterol (40-59) mg/dL Cholesterol/HDL Ratio (0-4.9) TSH (0.350-4.840) mcIU/mL Free T3 (1.71-3.71) pg/mL Serum Immunofix Reflex Urine Color (Yellow) Urine Clarity (Clear) Urine pH (5.0-8.0) pH Units Ur Specific [place] (1.010-1.025) Urine Protein (Neg-Trace) mg/dL Urine Glucose (UA) (Normal) mg/dL Urine Ketones (Negative) mg/dL Urine Blood (Negative) Urine Nitrite (Negative) Urine Bilirubin (Negative) Urine Urobilinogen (Normal) mg/dL Ur Leukocyte Esterase (Negative) Urine Microscopic RBC (0-3) per hpf Urine Microscopic WBC (0-3) per hpf Ur Squamous Epith Cells (None-Few) per lpf Urine Bacteria (None-Few) per hpf Hyaline Casts (None-Few) per lpf Urine Yeast (None Seen) per hpf Urine Creatinine mg/dL Protein/Creatinin Ratio (0-0.20) mg/mg Urine Total Protein (1-14) mg/dL Vancomycin Trough (10-20) mcg/mL Random Vancomycin mcg/mL Urine Opiates Screen (Swljie=982) ng/mL Ur Barbiturates Screen (Jiyrbc=666) ng/mL Ur Phencyclidine Scrn (Cutoff=25) ng/mL Ur Amphetamines Screen (Tnvnnz=0272) ng/mL U Benzodiazepines Scrn (Kzxygt=395) ng/mL Urine Cocaine Screen (Cutoff= 300) ng/mL U Marijuana (THC) Screen (Cutoff = 50) ng/mL IgG (768-1632) mg/dL IgA (68-408) mg/dL IgM (35-263) mg/dL VICTOR MANUEL Screen (None Detected) VICTOR MANUEL Titer (<1:40) Myeloperoxidase Ab (0-19) AU/mL Anti-ds DNA IgG Ab (None Detected) Glomerular Base Mem IgG (0-19) AU/mL Glomer Base Mem IgG IFA (Negative) Serine Protease 3 Ab (0-19) AU/mL Complement C3 (88-201) mg/dL Complement C4 (10-40) mg/dL Free Trego LC, Quant (0.33-1.94) mg/dL Free Lambda LC, Quant (0.57-2.63) mg/dL Free Trego/Lambda Ratio (0.26-1.65) Hep Bs Antigen (Nonreactive) Hep Bs Antibody mIU/mL Specimen Rejected 04/27/16 04/27/16 04/27/16 Range/Units 04:18 04:18 04:18 WBC (4.3-11.1) K/mcL RBC (3.82-4.97) M/mcL Hgb (11.5-15.4) g/dL Hct (35.3-44.9) % MCV (83.0-100.0) fL MCH (28.0-33.3) pg MCHC (31.6-35.5) g/dL RDW (11.5-14.5) % Plt Count (140-400) K/mcL MPV (9.4-12.4) fL Immature Gran % (0-4) % Seg Neutrophils % % Band Neutrophils % (0-4) % Lymphocytes % % Monocytes % % Eosinophils % % Basophils % % Neutrophils # (1.6-8.9) K/mcL Lymphocytes # (0.6-4.6) K/mcL Monocytes # (0.0-1.3) K/mcL Eosinophils # (0.0-0.6) K/mcL Basophils # (0.0-0.2) K/mcL Reactive Lymphocytes (Not Present) Platelet Estimate (Normal) Immature Plt Fraction (1.1-6.1) % Polychromasia (Not Present) Poikilocytosis (Not Present) Anisocytosis (Not Present) Microcytosis (Not Present) Macrocytosis (Not Present) Ovalocytes (Not Present) ESR (0-15) mm/hr PT 27.2 H (9.4-12.1) Seconds INR 2.5 APTT Fibrinogen (169-393) mg/dL D-Dimer (0-500) ng/mLFEU Heparin Anti-Xa, Unfract (0.30-0.70) IU/mL VBG pH (7.32-7.42) pH Units VBG pCO2 (41-51) mmHg VBG pO2 (25-40) mmHg VBG HCO3 (21-27) mEq/L Sodium 141 (136-145) mEq/L Potassium 4.2 (3.5-4.5) mEq/L Chloride 107 (98-109) mEq/L Carbon Dioxide 26 (19-29) mEq/L BUN 49 H (7-20) mg/dL Creatinine 3.39 H (0.57-1.11) mg/dL Est GFR ( Amer) 16 L (> 60) Est GFR (Non-Af Amer) 13 L (> 60) BUN/Creatinine Ratio 14 (6-26) Glucose 148 H (70-99) mg/dL POC Glucose (58-89) Est Mean Plasma Glucose mg/dl Hemoglobin A1c ( - 5.6) % Calculated Osmolality 308 H (280-300) Lactic Acid (0.5-2.2) mmol/L Uric Acid 15.1 H (2.6-6.0) mg/dL Calcium 8.3 L (8.6-10.8) mg/dL Ionized Calcium 1.17 (1.15-1.35) mmol/L Phosphorus 3.9 (2.3-4.7) mg/dL Magnesium 1.8 (1.6-2.6) mg/dL Total Bilirubin (0.2-1.2) mg/dL Direct Bilirubin (0.0-0.5) mg/dL Indirect Bilirubin (0.0-1.2) mg/dL AST (5-34) Units/L ALT (0-55) Units/L Alkaline Phosphatase (38-126) Units/L Creatine Kinase 538 H (29-168) Units/L Troponin I (0-0.03) ng/mL C-Reactive Protein (Less than 5) mg/L B-Natriuretic Peptide (0-100) pg/mL Prot Electrophor EER SEE NOTE Serum Total Protein (6.0-8.3) g/dL Total Protein (PEP) 5.10 L (6.00-8.30) g/dL Albumin 1.6 L (3.5-5.0) g/dL Albumin (PEP) 1.94 L (3.75-5.01) g/dL Globulin (2.4-3.5) g/dL Albumin/Globulin Ratio (1.1-2.2) Olzpi-8-Lnturixsv 0.57 H (0.19-0.46) g/dL Iawkf-2-Vudbtklim 0.75 (0.48-1.05) g/dL Beta Globulins 0.56 (0.48-1.10) g/dL Gamma Globulins 1.28 (0.62-1.51) g/dL PEP Interpretation SEE NOTE Triglycerides (< 150) mg/dL Cholesterol (< 200) mg/dL LDL Cholesterol, Calc (0-99) mg/dL VLDL Cholesterol, Calc (< 31) mg/dL HDL Cholesterol (40-59) mg/dL Cholesterol/HDL Ratio (0-4.9) TSH (0.350-4.840) mcIU/mL Free T3 (1.71-3.71) pg/mL Serum Immunofix Reflex JAYME Done Urine Color (Yellow) Urine Clarity (Clear) Urine pH (5.0-8.0) pH Units Ur Specific [place] (1.010-1.025) Urine Protein (Neg-Trace) mg/dL Urine Glucose (UA) (Normal) mg/dL Urine Ketones (Negative) mg/dL Urine Blood (Negative) Urine Nitrite (Negative) Urine Bilirubin (Negative) Urine Urobilinogen (Normal) mg/dL Ur Leukocyte Esterase (Negative) Urine Microscopic RBC (0-3) per hpf Urine Microscopic WBC (0-3) per hpf Ur Squamous Epith Cells (None-Few) per lpf Urine Bacteria (None-Few) per hpf Hyaline Casts (None-Few) per lpf Urine Yeast (None Seen) per hpf Urine Creatinine mg/dL Protein/Creatinin Ratio (0-0.20) mg/mg Urine Total Protein (1-14) mg/dL Vancomycin Trough (10-20) mcg/mL Random Vancomycin mcg/mL Urine Opiates Screen (Pceveh=123) ng/mL Ur Barbiturates Screen (Sfjegv=883) ng/mL Ur Phencyclidine Scrn (Cutoff=25) ng/mL Ur Amphetamines Screen (Dtzeai=0856) ng/mL U Benzodiazepines Scrn (Rthdbc=580) ng/mL Urine Cocaine Screen (Cutoff= 300) ng/mL U Marijuana (THC) Screen (Cutoff = 50) ng/mL IgG 1100 (768-1632) mg/dL IgA 324 (68-408) mg/dL IgM 153 (35-263) mg/dL VICTOR MANUEL Screen (None Detected) VICTOR MANUEL Titer (<1:40) Myeloperoxidase Ab (0-19) AU/mL Anti-ds DNA IgG Ab (None Detected) Glomerular Base Mem IgG (0-19) AU/mL Glomer Base Mem IgG IFA (Negative) Serine Protease 3 Ab (0-19) AU/mL Complement C3 (88-201) mg/dL Complement C4 (10-40) mg/dL Free Trego LC, Quant (0.33-1.94) mg/dL Free Lambda LC, Quant (0.57-2.63) mg/dL Free Trego/Lambda Ratio (0.26-1.65) Hep Bs Antigen (Nonreactive) Hep Bs Antibody mIU/mL Specimen Rejected 04/27/16 04/27/16 04/27/16 Range/Units 04:18 06:59 07:55 WBC 5.2 (4.3-11.1) K/mcL RBC 3.47 L (3.82-4.97) M/mcL Hgb 8.5 L (11.5-15.4) g/dL Hct 27.5 L (35.3-44.9) % MCV 79.3 L (83.0-100.0) fL MCH 24.5 L (28.0-33.3) pg MCHC 30.9 L (31.6-35.5) g/dL RDW 19.1 H (11.5-14.5) % Plt Count 147 (140-400) K/mcL MPV 12.3 (9.4-12.4) fL Immature Gran % 1.5 (0-4) % Seg Neutrophils % 74.2 % Band Neutrophils % (0-4) % Lymphocytes % 15.6 % Monocytes % 7.9 % Eosinophils % 0.6 % Basophils % 0.2 % Neutrophils # 3.9 (1.6-8.9) K/mcL Lymphocytes # 0.8 (0.6-4.6) K/mcL Monocytes # 0.4 (0.0-1.3) K/mcL Eosinophils # 0.0 (0.0-0.6) K/mcL Basophils # 0.0 (0.0-0.2) K/mcL Reactive Lymphocytes (Not Present) Platelet Estimate (Normal) Immature Plt Fraction (1.1-6.1) % Polychromasia (Not Present) Poikilocytosis (Not Present) Anisocytosis (Not Present) Microcytosis (Not Present) Macrocytosis (Not Present) Ovalocytes (Not Present) ESR (0-15) mm/hr PT (9.4-12.1) Seconds INR APTT Fibrinogen (169-393) mg/dL D-Dimer (0-500) ng/mLFEU Heparin Anti-Xa, Unfract (0.30-0.70) IU/mL VBG pH (7.32-7.42) pH Units VBG pCO2 (41-51) mmHg VBG pO2 (25-40) mmHg VBG HCO3 (21-27) mEq/L Sodium (136-145) mEq/L Potassium (3.5-4.5) mEq/L Chloride (98-109) mEq/L Carbon Dioxide (19-29) mEq/L BUN (7-20) mg/dL Creatinine (0.57-1.11) mg/dL Est GFR ( Amer) (> 60) Est GFR (Non-Af Amer) (> 60) BUN/Creatinine Ratio (6-26) Glucose (70-99) mg/dL POC Glucose 119 H (58-89) Est Mean Plasma Glucose mg/dl Hemoglobin A1c ( - 5.6) % Calculated Osmolality (280-300) Lactic Acid (0.5-2.2) mmol/L Uric Acid (2.6-6.0) mg/dL Calcium (8.6-10.8) mg/dL Ionized Calcium (1.15-1.35) mmol/L Phosphorus (2.3-4.7) mg/dL Magnesium (1.6-2.6) mg/dL Total Bilirubin (0.2-1.2) mg/dL Direct Bilirubin (0.0-0.5) mg/dL Indirect Bilirubin (0.0-1.2) mg/dL AST (5-34) Units/L ALT (0-55) Units/L Alkaline Phosphatase (38-126) Units/L Creatine Kinase (29-168) Units/L Troponin I (0-0.03) ng/mL C-Reactive Protein (Less than 5) mg/L B-Natriuretic Peptide (0-100) pg/mL Prot Electrophor EER Serum Total Protein (6.0-8.3) g/dL Total Protein (PEP) (6.00-8.30) g/dL Albumin (3.5-5.0) g/dL Albumin (PEP) (3.75-5.01) g/dL Globulin (2.4-3.5) g/dL Albumin/Globulin Ratio (1.1-2.2) Ehuyn-9-Odbozuhwe (0.19-0.46) g/dL Vwdpr-9-Vhkpfukie (0.48-1.05) g/dL Beta Globulins (0.48-1.10) g/dL Gamma Globulins (0.62-1.51) g/dL PEP Interpretation Triglycerides (< 150) mg/dL Cholesterol (< 200) mg/dL LDL Cholesterol, Calc (0-99) mg/dL VLDL Cholesterol, Calc (< 31) mg/dL HDL Cholesterol (40-59) mg/dL Cholesterol/HDL Ratio (0-4.9) TSH (0.350-4.840) mcIU/mL Free T3 (1.71-3.71) pg/mL Serum Immunofix Reflex Urine Color (Yellow) Urine Clarity (Clear) Urine pH (5.0-8.0) pH Units Ur Specific [place] (1.010-1.025) Urine Protein (Neg-Trace) mg/dL Urine Glucose (UA) (Normal) mg/dL Urine Ketones (Negative) mg/dL Urine Blood (Negative) Urine Nitrite (Negative) Urine Bilirubin (Negative) Urine Urobilinogen (Normal) mg/dL Ur Leukocyte Esterase (Negative) Urine Microscopic RBC (0-3) per hpf Urine Microscopic WBC (0-3) per hpf Ur Squamous Epith Cells (None-Few) per lpf Urine Bacteria (None-Few) per hpf Hyaline Casts (None-Few) per lpf Urine Yeast (None Seen) per hpf Urine Creatinine mg/dL Protein/Creatinin Ratio (0-0.20) mg/mg Urine Total Protein (1-14) mg/dL Vancomycin Trough (10-20) mcg/mL Random Vancomycin mcg/mL Urine Opiates Screen (Xalqez=038) ng/mL Ur Barbiturates Screen (Hzsdoj=525) ng/mL Ur Phencyclidine Scrn (Cutoff=25) ng/mL Ur Amphetamines Screen (Ldjmnk=2718) ng/mL U Benzodiazepines Scrn (Zqmcgu=913) ng/mL Urine Cocaine Screen (Cutoff= 300) ng/mL U Marijuana (THC) Screen (Cutoff = 50) ng/mL IgG (768-1632) mg/dL IgA (68-408) mg/dL IgM (35-263) mg/dL VICTOR MANUEL Screen DETECTED A (None Detected) VICTOR MANUEL Titer <1:40 (<1:40) Myeloperoxidase Ab (0-19) AU/mL Anti-ds DNA IgG Ab (None Detected) Glomerular Base Mem IgG (0-19) AU/mL Glomer Base Mem IgG IFA (Negative) Serine Protease 3 Ab (0-19) AU/mL Complement C3 (88-201) mg/dL Complement C4 (10-40) mg/dL Free Trego LC, Quant 21.10 H (0.33-1.94) mg/dL Free Lambda LC, Quant 11.00 H (0.57-2.63) mg/dL Free Trego/Lambda Ratio 1.92 H (0.26-1.65) Hep Bs Antigen (Nonreactive) Hep Bs Antibody mIU/mL Specimen Rejected 03/22/17 03/22/17 03/22/17 Range/Units 10:15 11:20 17:02 WBC (4.3-11.1) K/mcL RBC (3.82-4.97) M/mcL Hgb (11.5-15.4) g/dL Hct (35.3-44.9) % MCV (83.0-100.0) fL MCH (28.0-33.3) pg MCHC (31.6-35.5) g/dL RDW (11.5-14.5) % Plt Count (140-400) K/mcL MPV (9.4-12.4) fL Immature Gran % (0-4) % Seg Neutrophils % % Band Neutrophils % (0-4) % Lymphocytes % % Monocytes % % Eosinophils % % Basophils % % Neutrophils # (1.6-8.9) K/mcL Lymphocytes # (0.6-4.6) K/mcL Monocytes # (0.0-1.3) K/mcL Eosinophils # (0.0-0.6) K/mcL Basophils # (0.0-0.2) K/mcL Reactive Lymphocytes (Not Present) Platelet Estimate (Normal) Immature Plt Fraction (1.1-6.1) % Polychromasia (Not Present) Poikilocytosis (Not Present) Anisocytosis (Not Present) Microcytosis (Not Present) Macrocytosis (Not Present) Ovalocytes (Not Present) ESR (0-15) mm/hr PT (9.4-12.1) Seconds INR APTT Fibrinogen (169-393) mg/dL D-Dimer (0-500) ng/mLFEU Heparin Anti-Xa, Unfract (0.30-0.70) IU/mL VBG pH (7.32-7.42) pH Units VBG pCO2 (41-51) mmHg VBG pO2 (25-40) mmHg VBG HCO3 (21-27) mEq/L Sodium (136-145) mEq/L Potassium (3.5-4.5) mEq/L Chloride (98-109) mEq/L Carbon Dioxide (19-29) mEq/L BUN (7-20) mg/dL Creatinine (0.57-1.11) mg/dL Est GFR ( Amer) (> 60) Est GFR (Non-Af Amer) (> 60) BUN/Creatinine Ratio (6-26) Glucose (70-99) mg/dL POC Glucose 123 H 100 H (58-89) Est Mean Plasma Glucose mg/dl Hemoglobin A1c ( - 5.6) % Calculated Osmolality (280-300) Lactic Acid (0.5-2.2) mmol/L Uric Acid (2.6-6.0) mg/dL Calcium (8.6-10.8) mg/dL Ionized Calcium (1.15-1.35) mmol/L Phosphorus (2.3-4.7) mg/dL Magnesium (1.6-2.6) mg/dL Total Bilirubin (0.2-1.2) mg/dL Direct Bilirubin (0.0-0.5) mg/dL Indirect Bilirubin (0.0-1.2) mg/dL AST (5-34) Units/L ALT (0-55) Units/L Alkaline Phosphatase (38-126) Units/L Creatine Kinase (29-168) Units/L Troponin I (0-0.03) ng/mL C-Reactive Protein (Less than 5) mg/L B-Natriuretic Peptide (0-100) pg/mL Prot Electrophor EER Serum Total Protein (6.0-8.3) g/dL Total Protein (PEP) (6.00-8.30) g/dL Albumin (3.5-5.0) g/dL Albumin (PEP) (3.75-5.01) g/dL Globulin (2.4-3.5) g/dL Albumin/Globulin Ratio (1.1-2.2) Dwnjw-5-Otbjuuhoj (0.19-0.46) g/dL Ckclb-4-Yrlusdecq (0.48-1.05) g/dL Beta Globulins (0.48-1.10) g/dL Gamma Globulins (0.62-1.51) g/dL PEP Interpretation Triglycerides (< 150) mg/dL Cholesterol (< 200) mg/dL LDL Cholesterol, Calc (0-99) mg/dL VLDL Cholesterol, Calc (< 31) mg/dL HDL Cholesterol (40-59) mg/dL Cholesterol/HDL Ratio (0-4.9) TSH (0.350-4.840) mcIU/mL Free T3 (1.71-3.71) pg/mL Serum Immunofix Reflex Urine Color (Yellow) Urine Clarity (Clear) Urine pH (5.0-8.0) pH Units Ur Specific [place] (1.010-1.025) Urine Protein (Neg-Trace) mg/dL Urine Glucose (UA) (Normal) mg/dL Urine Ketones (Negative) mg/dL Urine Blood (Negative) Urine Nitrite (Negative) Urine Bilirubin (Negative) Urine Urobilinogen (Normal) mg/dL Ur Leukocyte Esterase (Negative) Urine Microscopic RBC (0-3) per hpf Urine Microscopic WBC (0-3) per hpf Ur Squamous Epith Cells (None-Few) per lpf Urine Bacteria (None-Few) per hpf Hyaline Casts (None-Few) per lpf Urine Yeast (None Seen) per hpf Urine Creatinine mg/dL Protein/Creatinin Ratio (0-0.20) mg/mg Urine Total Protein (1-14) mg/dL Vancomycin Trough (10-20) mcg/mL Random Vancomycin mcg/mL Urine Opiates Screen (Kzottr=586) ng/mL Ur Barbiturates Screen (Qrqdjy=938) ng/mL Ur Phencyclidine Scrn (Cutoff=25) ng/mL Ur Amphetamines Screen (Nptooi=4692) ng/mL U Benzodiazepines Scrn (Ljcijk=571) ng/mL Urine Cocaine Screen (Cutoff= 300) ng/mL U Marijuana (THC) Screen (Cutoff = 50) ng/mL IgG (768-1632) mg/dL IgA (68-408) mg/dL IgM (35-263) mg/dL VICTOR MANUEL Screen (None Detected) VICTOR MANUEL Titer (<1:40) Myeloperoxidase Ab (0-19) AU/mL Anti-ds DNA IgG Ab (None Detected) Glomerular Base Mem IgG (0-19) AU/mL Glomer Base Mem IgG IFA (Negative) Serine Protease 3 Ab (0-19) AU/mL Complement C3 (88-201) mg/dL Complement C4 (10-40) mg/dL Free Trego LC, Quant (0.33-1.94) mg/dL Free Lambda LC, Quant (0.57-2.63) mg/dL Free Trego/Lambda Ratio (0.26-1.65) Hep Bs Antigen Nonreactive (Nonreactive) Hep Bs Antibody 0.34 mIU/mL Specimen Rejected 04/27/16 04/28/16 04/28/16 Range/Units 21:14 05:00 05:00 WBC 5.0 (4.3-11.1) K/mcL RBC 3.51 L (3.82-4.97) M/mcL Hgb 8.4 L (11.5-15.4) g/dL Hct 27.9 L (35.3-44.9) % MCV 79.5 L (83.0-100.0) fL MCH 23.9 L (28.0-33.3) pg MCHC 30.1 L (31.6-35.5) g/dL RDW 19.0 H (11.5-14.5) % Plt Count 174 (140-400) K/mcL MPV 12.1 (9.4-12.4) fL Immature Gran % 1.8 (0-4) % Seg Neutrophils % 70.2 % Band Neutrophils % (0-4) % Lymphocytes % 17.3 % Monocytes % 8.5 % Eosinophils % 2.0 % Basophils % 0.2 % Neutrophils # 3.5 (1.6-8.9) K/mcL Lymphocytes # 0.9 (0.6-4.6) K/mcL Monocytes # 0.4 (0.0-1.3) K/mcL Eosinophils # 0.1 (0.0-0.6) K/mcL Basophils # 0.0 (0.0-0.2) K/mcL Reactive Lymphocytes (Not Present) Platelet Estimate (Normal) Immature Plt Fraction (1.1-6.1) % Polychromasia (Not Present) Poikilocytosis (Not Present) Anisocytosis (Not Present) Microcytosis (Not Present) Macrocytosis (Not Present) Ovalocytes (Not Present) ESR (0-15) mm/hr PT 20.7 H (9.4-12.1) Seconds INR 1.9 APTT Fibrinogen (169-393) mg/dL D-Dimer (0-500) ng/mLFEU Heparin Anti-Xa, Unfract (0.30-0.70) IU/mL VBG pH (7.32-7.42) pH Units VBG pCO2 (41-51) mmHg VBG pO2 (25-40) mmHg VBG HCO3 (21-27) mEq/L Sodium (136-145) mEq/L Potassium (3.5-4.5) mEq/L Chloride (98-109) mEq/L Carbon Dioxide (19-29) mEq/L BUN (7-20) mg/dL Creatinine (0.57-1.11) mg/dL Est GFR ( Amer) (> 60) Est GFR (Non-Af Amer) (> 60) BUN/Creatinine Ratio (6-26) Glucose (70-99) mg/dL POC Glucose 102 H (58-89) Est Mean Plasma Glucose mg/dl Hemoglobin A1c ( - 5.6) % Calculated Osmolality (280-300) Lactic Acid (0.5-2.2) mmol/L Uric Acid (2.6-6.0) mg/dL Calcium (8.6-10.8) mg/dL Ionized Calcium (1.15-1.35) mmol/L Phosphorus (2.3-4.7) mg/dL Magnesium (1.6-2.6) mg/dL Total Bilirubin (0.2-1.2) mg/dL Direct Bilirubin (0.0-0.5) mg/dL Indirect Bilirubin (0.0-1.2) mg/dL AST (5-34) Units/L ALT (0-55) Units/L Alkaline Phosphatase (38-126) Units/L Creatine Kinase (29-168) Units/L Troponin I (0-0.03) ng/mL C-Reactive Protein (Less than 5) mg/L B-Natriuretic Peptide (0-100) pg/mL Prot Electrophor EER Serum Total Protein (6.0-8.3) g/dL Total Protein (PEP) (6.00-8.30) g/dL Albumin (3.5-5.0) g/dL Albumin (PEP) (3.75-5.01) g/dL Globulin (2.4-3.5) g/dL Albumin/Globulin Ratio (1.1-2.2) Esxaz-0-Btvignorf (0.19-0.46) g/dL Ozfrx-4-Jlvvsphvf (0.48-1.05) g/dL Beta Globulins (0.48-1.10) g/dL Gamma Globulins (0.62-1.51) g/dL PEP Interpretation Triglycerides (< 150) mg/dL Cholesterol (< 200) mg/dL LDL Cholesterol, Calc (0-99) mg/dL VLDL Cholesterol, Calc (< 31) mg/dL HDL Cholesterol (40-59) mg/dL Cholesterol/HDL Ratio (0-4.9) TSH (0.350-4.840) mcIU/mL Free T3 (1.71-3.71) pg/mL Serum Immunofix Reflex Urine Color (Yellow) Urine Clarity (Clear) Urine pH (5.0-8.0) pH Units Ur Specific [place] (1.010-1.025) Urine Protein (Neg-Trace) mg/dL Urine Glucose (UA) (Normal) mg/dL Urine Ketones (Negative) mg/dL Urine Blood (Negative) Urine Nitrite (Negative) Urine Bilirubin (Negative) Urine Urobilinogen (Normal) mg/dL Ur Leukocyte Esterase (Negative) Urine Microscopic RBC (0-3) per hpf Urine Microscopic WBC (0-3) per hpf Ur Squamous Epith Cells (None-Few) per lpf Urine Bacteria (None-Few) per hpf Hyaline Casts (None-Few) per lpf Urine Yeast (None Seen) per hpf Urine Creatinine mg/dL Protein/Creatinin Ratio (0-0.20) mg/mg Urine Total Protein (1-14) mg/dL Vancomycin Trough (10-20) mcg/mL Random Vancomycin mcg/mL Urine Opiates Screen (Jrckwa=165) ng/mL Ur Barbiturates Screen (Bhkcik=446) ng/mL Ur Phencyclidine Scrn (Cutoff=25) ng/mL Ur Amphetamines Screen (Ryuasq=9189) ng/mL U Benzodiazepines Scrn (Ryrwkw=489) ng/mL Urine Cocaine Screen (Cutoff= 300) ng/mL U Marijuana (THC) Screen (Cutoff = 50) ng/mL IgG (768-1632) mg/dL IgA (68-408) mg/dL IgM (35-263) mg/dL VICTOR MANUEL Screen (None Detected) VICTOR MANUEL Titer (<1:40) Myeloperoxidase Ab (0-19) AU/mL Anti-ds DNA IgG Ab (None Detected) Glomerular Base Mem IgG (0-19) AU/mL Glomer Base Mem IgG IFA (Negative) Serine Protease 3 Ab (0-19) AU/mL Complement C3 (88-201) mg/dL Complement C4 (10-40) mg/dL Free Trego LC, Quant (0.33-1.94) mg/dL Free Lambda LC, Quant (0.57-2.63) mg/dL Free Trego/Lambda Ratio (0.26-1.65) Hep Bs Antigen (Nonreactive) Hep Bs Antibody mIU/mL Specimen Rejected 04/28/16 04/28/16 04/28/16 Range/Units 05:00 07:49 12:33 WBC (4.3-11.1) K/mcL RBC (3.82-4.97) M/mcL Hgb (11.5-15.4) g/dL Hct (35.3-44.9) % MCV (83.0-100.0) fL MCH (28.0-33.3) pg MCHC (31.6-35.5) g/dL RDW (11.5-14.5) % Plt Count (140-400) K/mcL MPV (9.4-12.4) fL Immature Gran % (0-4) % Seg Neutrophils % % Band Neutrophils % (0-4) % Lymphocytes % % Monocytes % % Eosinophils % % Basophils % % Neutrophils # (1.6-8.9) K/mcL Lymphocytes # (0.6-4.6) K/mcL Monocytes # (0.0-1.3) K/mcL Eosinophils # (0.0-0.6) K/mcL Basophils # (0.0-0.2) K/mcL Reactive Lymphocytes (Not Present) Platelet Estimate (Normal) Immature Plt Fraction (1.1-6.1) % Polychromasia (Not Present) Poikilocytosis (Not Present) Anisocytosis (Not Present) Microcytosis (Not Present) Macrocytosis (Not Present) Ovalocytes (Not Present) ESR (0-15) mm/hr PT (9.4-12.1) Seconds INR APTT Fibrinogen (169-393) mg/dL D-Dimer (0-500) ng/mLFEU Heparin Anti-Xa, Unfract (0.30-0.70) IU/mL VBG pH (7.32-7.42) pH Units VBG pCO2 (41-51) mmHg VBG pO2 (25-40) mmHg VBG HCO3 (21-27) mEq/L Sodium 140 (136-145) mEq/L Potassium 3.7 (3.5-4.5) mEq/L Chloride 106 (98-109) mEq/L Carbon Dioxide 26 (19-29) mEq/L BUN 34 H D (7-20) mg/dL Creatinine 2.55 H (0.57-1.11) mg/dL Est GFR ( Amer) 22 L (> 60) Est GFR (Non-Af Amer) 18 L (> 60) BUN/Creatinine Ratio 13 (6-26) Glucose 95 (70-99) mg/dL POC Glucose 91 H 104 H (58-89) Est Mean Plasma Glucose mg/dl Hemoglobin A1c ( - 5.6) % Calculated Osmolality 297 (280-300) Lactic Acid (0.5-2.2) mmol/L Uric Acid (2.6-6.0) mg/dL Calcium 7.6 L (8.6-10.8) mg/dL Ionized Calcium (1.15-1.35) mmol/L Phosphorus (2.3-4.7) mg/dL Magnesium (1.6-2.6) mg/dL Total Bilirubin (0.2-1.2) mg/dL Direct Bilirubin (0.0-0.5) mg/dL Indirect Bilirubin (0.0-1.2) mg/dL AST (5-34) Units/L ALT (0-55) Units/L Alkaline Phosphatase (38-126) Units/L Creatine Kinase (29-168) Units/L Troponin I (0-0.03) ng/mL C-Reactive Protein (Less than 5) mg/L B-Natriuretic Peptide (0-100) pg/mL Prot Electrophor EER Serum Total Protein (6.0-8.3) g/dL Total Protein (PEP) (6.00-8.30) g/dL Albumin (3.5-5.0) g/dL Albumin (PEP) (3.75-5.01) g/dL Globulin (2.4-3.5) g/dL Albumin/Globulin Ratio (1.1-2.2) Ucqza-3-Bmvhnibah (0.19-0.46) g/dL Fhbmq-9-Hklebiswf (0.48-1.05) g/dL Beta Globulins (0.48-1.10) g/dL Gamma Globulins (0.62-1.51) g/dL PEP Interpretation Triglycerides (< 150) mg/dL Cholesterol (< 200) mg/dL LDL Cholesterol, Calc (0-99) mg/dL VLDL Cholesterol, Calc (< 31) mg/dL HDL Cholesterol (40-59) mg/dL Cholesterol/HDL Ratio (0-4.9) TSH (0.350-4.840) mcIU/mL Free T3 (1.71-3.71) pg/mL Serum Immunofix Reflex Urine Color (Yellow) Urine Clarity (Clear) Urine pH (5.0-8.0) pH Units Ur Specific [place] (1.010-1.025) Urine Protein (Neg-Trace) mg/dL Urine Glucose (UA) (Normal) mg/dL Urine Ketones (Negative) mg/dL Urine Blood (Negative) Urine Nitrite (Negative) Urine Bilirubin (Negative) Urine Urobilinogen (Normal) mg/dL Ur Leukocyte Esterase (Negative) Urine Microscopic RBC (0-3) per hpf Urine Microscopic WBC (0-3) per hpf Ur Squamous Epith Cells (None-Few) per lpf Urine Bacteria (None-Few) per hpf Hyaline Casts (None-Few) per lpf Urine Yeast (None Seen) per hpf Urine Creatinine mg/dL Protein/Creatinin Ratio (0-0.20) mg/mg Urine Total Protein (1-14) mg/dL Vancomycin Trough (10-20) mcg/mL Random Vancomycin mcg/mL Urine Opiates Screen (Trkjer=936) ng/mL Ur Barbiturates Screen (Sjexue=320) ng/mL Ur Phencyclidine Scrn (Cutoff=25) ng/mL Ur Amphetamines Screen (Ykvmsm=5472) ng/mL U Benzodiazepines Scrn (Fbreef=298) ng/mL Urine Cocaine Screen (Cutoff= 300) ng/mL U Marijuana (THC) Screen (Cutoff = 50) ng/mL IgG (768-1632) mg/dL IgA (68-408) mg/dL IgM (35-263) mg/dL VICTOR MANUEL Screen (None Detected) VICTOR MANUEL Titer (<1:40) Myeloperoxidase Ab (0-19) AU/mL Anti-ds DNA IgG Ab (None Detected) Glomerular Base Mem IgG (0-19) AU/mL Glomer Base Mem IgG IFA (Negative) Serine Protease 3 Ab (0-19) AU/mL Complement C3 (88-201) mg/dL Complement C4 (10-40) mg/dL Free Trego LC, Quant (0.33-1.94) mg/dL Free Lambda LC, Quant (0.57-2.63) mg/dL Free Trego/Lambda Ratio (0.26-1.65) Hep Bs Antigen (Nonreactive) Hep Bs Antibody mIU/mL Specimen Rejected 04/28/16 04/28/16 04/29/16 Range/Units 16:59 20:32 04:40 WBC 7.5 (4.3-11.1) K/mcL RBC 3.85 (3.82-4.97) M/mcL Hgb 9.1 L (11.5-15.4) g/dL Hct 31.5 L (35.3-44.9) % MCV 81.8 L (83.0-100.0) fL MCH 23.6 L (28.0-33.3) pg MCHC 28.9 L (31.6-35.5) g/dL RDW 19.9 H (11.5-14.5) % Plt Count 164 (140-400) K/mcL MPV 12.0 (9.4-12.4) fL Immature Gran % 1.5 (0-4) % Seg Neutrophils % 77.9 % Band Neutrophils % (0-4) % Lymphocytes % 11.3 % Monocytes % 7.7 % Eosinophils % 1.5 % Basophils % 0.1 % Neutrophils # 5.8 (1.6-8.9) K/mcL Lymphocytes # 0.9 (0.6-4.6) K/mcL Monocytes # 0.6 (0.0-1.3) K/mcL Eosinophils # 0.1 (0.0-0.6) K/mcL Basophils # 0.0 (0.0-0.2) K/mcL Reactive Lymphocytes (Not Present) Platelet Estimate Normal (Normal) Immature Plt Fraction 8.8 H (1.1-6.1) % Polychromasia 1+ A (Not Present) Poikilocytosis 1+ A (Not Present) Anisocytosis 1+ A (Not Present) Microcytosis Present A (Not Present) Macrocytosis Present A (Not Present) Ovalocytes (Not Present) ESR (0-15) mm/hr PT (9.4-12.1) Seconds INR APTT Fibrinogen (169-393) mg/dL D-Dimer (0-500) ng/mLFEU Heparin Anti-Xa, Unfract (0.30-0.70) IU/mL VBG pH (7.32-7.42) pH Units VBG pCO2 (41-51) mmHg VBG pO2 (25-40) mmHg VBG HCO3 (21-27) mEq/L Sodium (136-145) mEq/L Potassium (3.5-4.5) mEq/L Chloride (98-109) mEq/L Carbon Dioxide (19-29) mEq/L BUN (7-20) mg/dL Creatinine (0.57-1.11) mg/dL Est GFR ( Amer) (> 60) Est GFR (Non-Af Amer) (> 60) BUN/Creatinine Ratio (6-26) Glucose (70-99) mg/dL POC Glucose 80 81 (58-89) Est Mean Plasma Glucose mg/dl Hemoglobin A1c ( - 5.6) % Calculated Osmolality (280-300) Lactic Acid (0.5-2.2) mmol/L Uric Acid (2.6-6.0) mg/dL Calcium (8.6-10.8) mg/dL Ionized Calcium (1.15-1.35) mmol/L Phosphorus (2.3-4.7) mg/dL Magnesium (1.6-2.6) mg/dL Total Bilirubin (0.2-1.2) mg/dL Direct Bilirubin (0.0-0.5) mg/dL Indirect Bilirubin (0.0-1.2) mg/dL AST (5-34) Units/L ALT (0-55) Units/L Alkaline Phosphatase (38-126) Units/L Creatine Kinase (29-168) Units/L Troponin I (0-0.03) ng/mL C-Reactive Protein (Less than 5) mg/L B-Natriuretic Peptide (0-100) pg/mL Prot Electrophor EER Serum Total Protein (6.0-8.3) g/dL Total Protein (PEP) (6.00-8.30) g/dL Albumin (3.5-5.0) g/dL Albumin (PEP) (3.75-5.01) g/dL Globulin (2.4-3.5) g/dL Albumin/Globulin Ratio (1.1-2.2) Voftr-0-Gadihqtsb (0.19-0.46) g/dL Hschy-7-Pefdwfwhk (0.48-1.05) g/dL Beta Globulins (0.48-1.10) g/dL Gamma Globulins (0.62-1.51) g/dL PEP Interpretation Triglycerides (< 150) mg/dL Cholesterol (< 200) mg/dL LDL Cholesterol, Calc (0-99) mg/dL VLDL Cholesterol, Calc (< 31) mg/dL HDL Cholesterol (40-59) mg/dL Cholesterol/HDL Ratio (0-4.9) TSH (0.350-4.840) mcIU/mL Free T3 (1.71-3.71) pg/mL Serum Immunofix Reflex Urine Color (Yellow) Urine Clarity (Clear) Urine pH (5.0-8.0) pH Units Ur Specific [place] (1.010-1.025) Urine Protein (Neg-Trace) mg/dL Urine Glucose (UA) (Normal) mg/dL Urine Ketones (Negative) mg/dL Urine Blood (Negative) Urine Nitrite (Negative) Urine Bilirubin (Negative) Urine Urobilinogen (Normal) mg/dL Ur Leukocyte Esterase (Negative) Urine Microscopic RBC (0-3) per hpf Urine Microscopic WBC (0-3) per hpf Ur Squamous Epith Cells (None-Few) per lpf Urine Bacteria (None-Few) per hpf Hyaline Casts (None-Few) per lpf Urine Yeast (None Seen) per hpf Urine Creatinine mg/dL Protein/Creatinin Ratio (0-0.20) mg/mg Urine Total Protein (1-14) mg/dL Vancomycin Trough (10-20) mcg/mL Random Vancomycin mcg/mL Urine Opiates Screen (Qkeknr=713) ng/mL Ur Barbiturates Screen (Jvyjqx=196) ng/mL Ur Phencyclidine Scrn (Cutoff=25) ng/mL Ur Amphetamines Screen (Bnjqhw=0043) ng/mL U Benzodiazepines Scrn (Wouwdy=022) ng/mL Urine Cocaine Screen (Cutoff= 300) ng/mL U Marijuana (THC) Screen (Cutoff = 50) ng/mL IgG (768-1632) mg/dL IgA (68-408) mg/dL IgM (35-263) mg/dL VICTOR MANUEL Screen (None Detected) VICTOR MANUEL Titer (<1:40) Myeloperoxidase Ab (0-19) AU/mL Anti-ds DNA IgG Ab (None Detected) Glomerular Base Mem IgG (0-19) AU/mL Glomer Base Mem IgG IFA (Negative) Serine Protease 3 Ab (0-19) AU/mL Complement C3 (88-201) mg/dL Complement C4 (10-40) mg/dL Free Trego LC, Quant (0.33-1.94) mg/dL Free Lambda LC, Quant (0.57-2.63) mg/dL Free Trego/Lambda Ratio (0.26-1.65) Hep Bs Antigen (Nonreactive) Hep Bs Antibody mIU/mL Specimen Rejected 04/29/16 04/29/16 04/29/16 Range/Units 04:40 04:40 07:12 WBC (4.3-11.1) K/mcL RBC (3.82-4.97) M/mcL Hgb (11.5-15.4) g/dL Hct (35.3-44.9) % MCV (83.0-100.0) fL MCH (28.0-33.3) pg MCHC (31.6-35.5) g/dL RDW (11.5-14.5) % Plt Count (140-400) K/mcL MPV (9.4-12.4) fL Immature Gran % (0-4) % Seg Neutrophils % % Band Neutrophils % (0-4) % Lymphocytes % % Monocytes % % Eosinophils % % Basophils % % Neutrophils # (1.6-8.9) K/mcL Lymphocytes # (0.6-4.6) K/mcL Monocytes # (0.0-1.3) K/mcL Eosinophils # (0.0-0.6) K/mcL Basophils # (0.0-0.2) K/mcL Reactive Lymphocytes (Not Present) Platelet Estimate (Normal) Immature Plt Fraction (1.1-6.1) % Polychromasia (Not Present) Poikilocytosis (Not Present) Anisocytosis (Not Present) Microcytosis (Not Present) Macrocytosis (Not Present) Ovalocytes (Not Present) ESR (0-15) mm/hr PT 15.5 H (9.4-12.1) Seconds INR 1.4 APTT Fibrinogen (169-393) mg/dL D-Dimer (0-500) ng/mLFEU Heparin Anti-Xa, Unfract (0.30-0.70) IU/mL VBG pH (7.32-7.42) pH Units VBG pCO2 (41-51) mmHg VBG pO2 (25-40) mmHg VBG HCO3 (21-27) mEq/L Sodium 141 (136-145) mEq/L Potassium 3.8 (3.5-4.5) mEq/L Chloride 106 (98-109) mEq/L Carbon Dioxide 26 (19-29) mEq/L BUN 19 D (7-20) mg/dL Creatinine 2.27 H (0.57-1.11) mg/dL Est GFR ( Amer) 25 L (> 60) Est GFR (Non-Af Amer) 21 L (> 60) BUN/Creatinine Ratio 8 (6-26) Glucose 102 H (70-99) mg/dL POC Glucose 106 H (58-89) Est Mean Plasma Glucose mg/dl Hemoglobin A1c ( - 5.6) % Calculated Osmolality 294 (280-300) Lactic Acid (0.5-2.2) mmol/L Uric Acid (2.6-6.0) mg/dL Calcium 8.0 L (8.6-10.8) mg/dL Ionized Calcium (1.15-1.35) mmol/L Phosphorus 3.2 (2.3-4.7) mg/dL Magnesium (1.6-2.6) mg/dL Total Bilirubin (0.2-1.2) mg/dL Direct Bilirubin (0.0-0.5) mg/dL Indirect Bilirubin (0.0-1.2) mg/dL AST (5-34) Units/L ALT (0-55) Units/L Alkaline Phosphatase (38-126) Units/L Creatine Kinase (29-168) Units/L Troponin I (0-0.03) ng/mL C-Reactive Protein (Less than 5) mg/L B-Natriuretic Peptide (0-100) pg/mL Prot Electrophor EER Serum Total Protein (6.0-8.3) g/dL Total Protein (PEP) (6.00-8.30) g/dL Albumin 1.7 L (3.5-5.0) g/dL Albumin (PEP) (3.75-5.01) g/dL Globulin (2.4-3.5) g/dL Albumin/Globulin Ratio (1.1-2.2) Gdikr-6-Pnnanuopv (0.19-0.46) g/dL Kpykf-9-Wzocaxujh (0.48-1.05) g/dL Beta Globulins (0.48-1.10) g/dL Gamma Globulins (0.62-1.51) g/dL PEP Interpretation Triglycerides (< 150) mg/dL Cholesterol (< 200) mg/dL LDL Cholesterol, Calc (0-99) mg/dL VLDL Cholesterol, Calc (< 31) mg/dL HDL Cholesterol (40-59) mg/dL Cholesterol/HDL Ratio (0-4.9) TSH (0.350-4.840) mcIU/mL Free T3 (1.71-3.71) pg/mL Serum Immunofix Reflex Urine Color (Yellow) Urine Clarity (Clear) Urine pH (5.0-8.0) pH Units Ur Specific [place] (1.010-1.025) Urine Protein (Neg-Trace) mg/dL Urine Glucose (UA) (Normal) mg/dL Urine Ketones (Negative) mg/dL Urine Blood (Negative) Urine Nitrite (Negative) Urine Bilirubin (Negative) Urine Urobilinogen (Normal) mg/dL Ur Leukocyte Esterase (Negative) Urine Microscopic RBC (0-3) per hpf Urine Microscopic WBC (0-3) per hpf Ur Squamous Epith Cells (None-Few) per lpf Urine Bacteria (None-Few) per hpf Hyaline Casts (None-Few) per lpf Urine Yeast (None Seen) per hpf Urine Creatinine mg/dL Protein/Creatinin Ratio (0-0.20) mg/mg Urine Total Protein (1-14) mg/dL Vancomycin Trough (10-20) mcg/mL Random Vancomycin mcg/mL Urine Opiates Screen (Ipdqok=285) ng/mL Ur Barbiturates Screen (Gaehsw=247) ng/mL Ur Phencyclidine Scrn (Cutoff=25) ng/mL Ur Amphetamines Screen (Ezvlnb=0933) ng/mL U Benzodiazepines Scrn (Yucmha=204) ng/mL Urine Cocaine Screen (Cutoff= 300) ng/mL U Marijuana (THC) Screen (Cutoff = 50) ng/mL IgG (768-1632) mg/dL IgA (68-408) mg/dL IgM (35-263) mg/dL VICTOR MANUEL Screen (None Detected) VICTOR MANUEL Titer (<1:40) Myeloperoxidase Ab (0-19) AU/mL Anti-ds DNA IgG Ab (None Detected) Glomerular Base Mem IgG (0-19) AU/mL Glomer Base Mem IgG IFA (Negative) Serine Protease 3 Ab (0-19) AU/mL Complement C3 (88-201) mg/dL Complement C4 (10-40) mg/dL Free Trego LC, Quant (0.33-1.94) mg/dL Free Lambda LC, Quant (0.57-2.63) mg/dL Free Trego/Lambda Ratio (0.26-1.65) Hep Bs Antigen (Nonreactive) Hep Bs Antibody mIU/mL Specimen Rejected 04/29/16 04/29/16 Range/Units 11:24 13:15 WBC (4.3-11.1) K/mcL RBC (3.82-4.97) M/mcL Hgb (11.5-15.4) g/dL Hct (35.3-44.9) % MCV (83.0-100.0) fL MCH (28.0-33.3) pg MCHC (31.6-35.5) g/dL RDW (11.5-14.5) % Plt Count (140-400) K/mcL MPV (9.4-12.4) fL Immature Gran % (0-4) % Seg Neutrophils % % Band Neutrophils % (0-4) % Lymphocytes % % Monocytes % % Eosinophils % % Basophils % % Neutrophils # (1.6-8.9) K/mcL Lymphocytes # (0.6-4.6) K/mcL Monocytes # (0.0-1.3) K/mcL Eosinophils # (0.0-0.6) K/mcL Basophils # (0.0-0.2) K/mcL Reactive Lymphocytes (Not Present) Platelet Estimate (Normal) Immature Plt Fraction (1.1-6.1) % Polychromasia (Not Present) Poikilocytosis (Not Present) Anisocytosis (Not Present) Microcytosis (Not Present) Macrocytosis (Not Present) Ovalocytes (Not Present) ESR (0-15) mm/hr PT (9.4-12.1) Seconds INR APTT Fibrinogen (169-393) mg/dL D-Dimer (0-500) ng/mLFEU Heparin Anti-Xa, Unfract (0.30-0.70) IU/mL VBG pH (7.32-7.42) pH Units VBG pCO2 (41-51) mmHg VBG pO2 (25-40) mmHg VBG HCO3 (21-27) mEq/L Sodium (136-145) mEq/L Potassium (3.5-4.5) mEq/L Chloride (98-109) mEq/L Carbon Dioxide (19-29) mEq/L BUN (7-20) mg/dL Creatinine (0.57-1.11) mg/dL Est GFR ( Amer) (> 60) Est GFR (Non-Af Amer) (> 60) BUN/Creatinine Ratio (6-26) Glucose (70-99) mg/dL POC Glucose 103 H (58-89) Est Mean Plasma Glucose mg/dl Hemoglobin A1c ( - 5.6) % Calculated Osmolality (280-300) Lactic Acid (0.5-2.2) mmol/L Uric Acid (2.6-6.0) mg/dL Calcium (8.6-10.8) mg/dL Ionized Calcium (1.15-1.35) mmol/L Phosphorus (2.3-4.7) mg/dL Magnesium (1.6-2.6) mg/dL Total Bilirubin (0.2-1.2) mg/dL Direct Bilirubin (0.0-0.5) mg/dL Indirect Bilirubin (0.0-1.2) mg/dL AST (5-34) Units/L ALT (0-55) Units/L Alkaline Phosphatase (38-126) Units/L Creatine Kinase (29-168) Units/L Troponin I (0-0.03) ng/mL C-Reactive Protein (Less than 5) mg/L B-Natriuretic Peptide (0-100) pg/mL Prot Electrophor EER Serum Total Protein (6.0-8.3) g/dL Total Protein (PEP) (6.00-8.30) g/dL Albumin (3.5-5.0) g/dL Albumin (PEP) (3.75-5.01) g/dL Globulin (2.4-3.5) g/dL Albumin/Globulin Ratio (1.1-2.2) Xfwrz-0-Fgbcjjgem (0.19-0.46) g/dL Hqluu-3-Vdceeouav (0.48-1.05) g/dL Beta Globulins (0.48-1.10) g/dL Gamma Globulins (0.62-1.51) g/dL PEP Interpretation Triglycerides (< 150) mg/dL Cholesterol (< 200) mg/dL LDL Cholesterol, Calc (0-99) mg/dL VLDL Cholesterol, Calc (< 31) mg/dL HDL Cholesterol (40-59) mg/dL Cholesterol/HDL Ratio (0-4.9) TSH (0.350-4.840) mcIU/mL Free T3 (1.71-3.71) pg/mL Serum Immunofix Reflex Urine Color (Yellow) Urine Clarity (Clear) Urine pH (5.0-8.0) pH Units Ur Specific [place] (1.010-1.025) Urine Protein (Neg-Trace) mg/dL Urine Glucose (UA) (Normal) mg/dL Urine Ketones (Negative) mg/dL Urine Blood (Negative) Urine Nitrite (Negative) Urine Bilirubin (Negative) Urine Urobilinogen (Normal) mg/dL Ur Leukocyte Esterase (Negative) Urine Microscopic RBC (0-3) per hpf Urine Microscopic WBC (0-3) per hpf Ur Squamous Epith Cells (None-Few) per lpf Urine Bacteria (None-Few) per hpf Hyaline Casts (None-Few) per lpf Urine Yeast (None Seen) per hpf Urine Creatinine mg/dL Protein/Creatinin Ratio (0-0.20) mg/mg Urine Total Protein (1-14) mg/dL Vancomycin Trough (10-20) mcg/mL Random Vancomycin mcg/mL Urine Opiates Screen (Bknkdq=038) ng/mL Ur Barbiturates Screen (Toecmc=540) ng/mL Ur Phencyclidine Scrn (Cutoff=25) ng/mL Ur Amphetamines Screen (Kcoysk=7043) ng/mL U Benzodiazepines Scrn (Dodmme=705) ng/mL Urine Cocaine Screen (Cutoff= 300) ng/mL U Marijuana (THC) Screen (Cutoff = 50) ng/mL IgG (768-1632) mg/dL IgA (68-408) mg/dL IgM (35-263) mg/dL VICTOR MANUEL Screen (None Detected) VICTOR MANUEL Titer (<1:40) Myeloperoxidase Ab 0 (0-19) AU/mL Anti-ds DNA IgG Ab NONE DETECTED (None Detected) Glomerular Base Mem IgG 0 (0-19) AU/mL Glomer Base Mem IgG IFA NEGATIVE (Negative) Serine Protease 3 Ab 2 (0-19) AU/mL Complement C3 (88-201) mg/dL Complement C4 (10-40) mg/dL Free Trego LC, Quant (0.33-1.94) mg/dL Free Lambda LC, Quant (0.57-2.63) mg/dL Free Trego/Lambda Ratio (0.26-1.65) Hep Bs Antigen (Nonreactive) Hep Bs Antibody mIU/mL Specimen Rejected Assessments/Treatments Assess neurologic status Start: 04/20/16 00: 26 Freq: q4h Status: Complete Document 04/20/16 07:30 [id number] (Rec: 04/20/16 10:58 [id number]) Neurological Assessment Eye Opening Spontaneous Motor Localizes to Pain Verbal Oriented Coma Scale Total 14 Neurologic Status Alert Patient Orientation Person Place Arousable To Name Speech Pattern Normal rate Normal rhythm Normal tone Coherent Patient Behavior Cooperative Fatigued Suspicious Mood Description Anxious Bilateral Pupil Reaction Reactive Pupil Size (mm) 2 Pupil [place] Equal Scleral Edema No Sensory Vision impaired All Four Limbs Strength Severe Weakness Road Gang Supervisor Strength Equal Bilat Weak Push/Pull Left Greater Than Right Bilat Weak Numbness/Tingling No Facial Symmetry Symmetrical Blink Present Cough/Gag Normal Neurological Comment: Pt. A&O x2, tongue midline without deviation. Document 04/20/16 16:00 [id number] (Rec: 04/20/16 18:33 [id number]) Neurological Assessment Eye Opening Spontaneous Motor Localizes to Pain Verbal Oriented Coma Scale Total 14 Neurologic Status Agitation/Confusion Patient Orientation Person Place Arousable To Name Speech Pattern Normal rate Normal rhythm Normal tone Coherent Rambling Patient Behavior Cooperative Anxious Fatigued Suspicious Mood Description Angry Anxious Bilateral Pupil Reaction Reactive Pupil Size (mm) 2 Pupil [place] Equal Scleral Edema No Sensory Vision impaired All Four Limbs Strength Severe Weakness Road Gang Supervisor Strength Equal Bilat Weak Push/Pull Left Greater Than Right Bilat Weak Numbness/Tingling No Facial Symmetry Symmetrical Blink Present Cough/Gag Normal Neurological Comment: Pt. A&O x2, tongue midline without deviation. Document 04/20/16 19:30 DIMPLE (Rec: 04/20/16 21:07 [id number]) Neurological Assessment Eye Opening Spontaneous Motor Obeys Commands Verbal Oriented Coma Scale Total 15 Neurologic Status Alert Patient Orientation Person Place Time Arousable To Name Speech Pattern Normal rate Normal rhythm Normal tone Appropriate Patient Behavior Suspicious Resistive to Care Mood Description Suspicious Bilateral Pupil Reaction Reactive Pupil Size (mm) 2 Pupil [place] Equal Scleral Edema No All Four Limbs Strength Mild Weakness Road Gang Supervisor Strength Equal Push/Pull Equal Numbness/Tingling No Facial Symmetry Symmetrical Document 04/20/16 23:05 DIMPLE (Rec: 04/20/16 23:18 DIMPLE [facility] [id number]) Neurological Assessment Eye Opening Spontaneous Motor Obeys Commands Verbal Confused Coma Scale Total 14 Neurologic Status Alert Patient Orientation Person Place Time Speech Pattern Normal rate Normal rhythm Normal tone Inappropriate to situation Patient Behavior Suspicious Resistive to Care Mood Description Suspicious Bilateral Pupil Reaction Reactive Pupil Size (mm) 2 Pupil [place] Equal Scleral Edema No All Four Limbs Strength Mild Weakness Road Gang Supervisor Strength Equal Push/Pull Equal Numbness/Tingling No Facial Symmetry Symmetrical Document 04/21/16 07:30 [id number] (Rec: 04/21/16 07:50 [id number]) Neurological Assessment Eye Opening Spontaneous Motor Obeys Commands Verbal Oriented Coma Scale Total 15 Neurologic Status Alert Patient Orientation Person Place Arousable To Name Speech Pattern Normal rate Normal rhythm Normal tone Coherent Patient Behavior Aggressive Uncooperative Suspicious Resistive to Care Mood Description Fearful Suspicious Anxious Bilateral Pupil Reaction Reactive Pupil Size (mm) 2 Pupil [place] Equal Scleral Edema No Sensory Vision impaired All Four Limbs Strength Mild Weakness Road Gang Supervisor Strength Equal Push/Pull Equal Right Greater Than Left Numbness/Tingling No Facial Symmetry Symmetrical Blink Present Cough/Gag Normal Neurological Comment: Pt. A&O x2, tongue midline without deviation. 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 Document 04/21/16 11:30 [id number] (Rec: 04/21/16 14:03 [id number]) Neurological Assessment Eye Opening To Voice Motor Obeys Commands Verbal Oriented Coma Scale Total 14 Neurologic Status Responds to voice Patient Orientation Person Place Arousable To Name Speech Pattern Normal rate Normal rhythm Normal tone Coherent Patient Behavior Aggressive Uncooperative Suspicious Resistive to Care Mood Description Fearful Suspicious Anxious Bilateral Pupil Reaction Reactive Pupil Size (mm) 2 Pupil [place] Equal Sensory Vision impaired All Four Limbs Strength Mild Weakness Road Gang Supervisor Strength Equal Push/Pull Equal Right Greater Than Left Numbness/Tingling No Facial Symmetry Symmetrical Blink Present Cough/Gag Normal Neurological Comment: Pt. A&O x2, tongue midline without deviation. 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 Document 04/21/16 16:00 [id number] (Rec: 04/21/16 17:40 [id number]) Neurological Assessment Eye Opening Spontaneous Motor Obeys Commands Verbal Oriented Coma Scale Total 15 Neurologic Status Responds to voice Patient Orientation Person Place Arousable To Name Speech Pattern Normal rate Normal rhythm Normal tone Coherent Patient Behavior Aggressive Uncooperative Guarded Suspicious Belligerent Resistive to Care Mood Description Fearful Suspicious Anxious Bilateral Pupil Reaction Reactive Pupil Size (mm) 2 Pupil [place] Equal Sensory Vision impaired All Four Limbs Strength Mild Weakness Road Gang Supervisor Strength Equal Push/Pull Equal Right Greater Than Left Numbness/Tingling No Facial Symmetry Symmetrical Blink Present Cough/Gag Normal Neurological Comment: Pt. A&O x2, tongue midline without deviation. 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 Document 04/22/16 08:00 S (Rec: 04/22/16 10:42 [id number]) Neurological Assessment Eye Opening Spontaneous Motor Obeys Commands Verbal Oriented Coma Scale Total 15 Neurologic Status Responds to voice Patient Orientation Person Place Arousable To Name Speech Pattern Normal rate Normal rhythm Normal tone Coherent Patient Behavior Aggressive Uncooperative Guarded Suspicious Belligerent Resistive to Care Mood Description Fearful Suspicious Anxious Bilateral Pupil Reaction Reactive Pupil Size (mm) 2 Pupil [place] Equal Sensory Vision impaired All Four Limbs Strength Mild Weakness Road Gang Supervisor Strength Equal Push/Pull Equal Right Greater Than Left Numbness/Tingling No Facial Symmetry Symmetrical Document 04/22/16 11:45 [facility] (Rec: 04/22/16 12:32 [id number]) Neurological Assessment Eye Opening Spontaneous Motor Obeys Commands Verbal Oriented Coma Scale Total 15 Neurologic Status Responds to voice Patient Orientation Person Place Arousable To Name Speech Pattern Normal rate Normal rhythm Normal tone Coherent Patient Behavior Aggressive Uncooperative Guarded Suspicious Belligerent Resistive to Care Mood Description Fearful Suspicious Anxious Bilateral Pupil Reaction Reactive Pupil Size (mm) 2 Pupil [place] Equal All Four Limbs Strength Mild Weakness Road Gang Supervisor Strength Equal Push/Pull Equal Right Greater Than Left Numbness/Tingling No Facial Symmetry Symmetrical Document 04/22/16 15:21 LJS (Rec: 04/22/16 15:25 [id number]) Neurological Assessment Eye Opening Spontaneous Motor Obeys Commands Verbal Oriented Coma Scale Total 15 Neurologic Status Responds to voice Patient Orientation Person Place Arousable To Name Speech Pattern Normal rate Normal rhythm Normal tone Coherent Patient Behavior Anxious Restless Resistive to Care Mood Description Calm Fearful Suspicious Bilateral Pupil Reaction Reactive Pupil Size (mm) 2 Pupil [place] Equal Sensory Vision impaired All Four Limbs Strength Mild Weakness Road Gang Supervisor Strength Equal Push/Pull Equal Right Greater Than Left Numbness/Tingling No Facial Symmetry Symmetrical Bed rest Start: 04/20/16 00: 16 Freq: .CONT Status: Discharge Document 04/26/16 10:00 KMS (Rec: 04/26/16 12:58 [id number] [id number]) Document 04/27/16 07:45 KMS (Rec: 04/27/16 20:41 [id number]) Cardiac Pulmonary Rehab Consult Start: 04/21/16 15: 19 Freq: Status: Discharge Document 04/21/16 15:19 KST (Rec: 04/21/16 15:20 KST [id number]) Cardiac/Pulmonary Consult Cardiac Rehab Diagnosis [place] Phase One Consult No Phase 2 Education Recieved No Recieved Brochure No Comment Non-eligible for cardiac rehab , residing in [facility] at present Cardiac monitoring Start: 04/20/16 00: 15 Freq: .ONCE Status: Discharge Document 04/24/16 11:01 [id number] (Rec: 04/24/16 11:02 [id number]) Cardiac Monitoring Monitor Number [id number] Strip placed in Chart Yes History Reviewed Yes Memory Cleared Yes Alarms/Limits HR Alarm 120/50 SBP Alarm 160/90 SPO2 Alarm 100/90 Heart Rate 60 EKG Method Telemetry Rhythm Sinus Arrhythmia RI Interval 0.16 QRS Interval 0.13 QT Interval 0.34 Central Line Cleared for Use Start: 04/27/16 13: 21 Freq: NOW Status: Discharge Document 04/27/16 17:00 KMS (Rec: 04/27/16 21:00 KMS [id number]) Central Line Insertion Checklist Start: 04/27/16 13: 46 Freq: Status: Discharge Document 04/27/16 13:46 [facility] (Rec: 04/27/16 13:46 [facility] [id number]) Central Line Insertion Checklist Central Line Insertion elective Central Line Anatomical Insertion Site right internal jugular vein Central Line Insertion Location inpatient unit Catheter Type temporary dialysis catheter Time Out verify patient name and date of timeout performed per policy wali and assess the site assemble equipment and verify supplies perform hand hygiene Prep the Procedure Site apply chloraprep to the skin using a back and forth scrubbing motion apply chloraprep for 30 seconds (upper body), 1-2 min (femoral sites) allow prep to dry drape the patient with a full body drape During the Procedure clinician is wearing sterile gloves, cap, mask,& gown during insertion sterile field and sterile technique are maintained patient's face is covered with drape or mask and wearing a cap everyone in room is wearing a mask After the Procedure guidewire removed and visualized sterile technique is used to apply the dressing dressing is dated order radiographic imaging if necessary patient provided with education on central line infection prevention Name of Clinician Inserting Central Line Clinician Assisting/Completing Checklist barbieunt RN/ [facility] RT Date 04/27/16 Time 13:30 Critical Care Flow Sheet Start: 04/20/16 06: 53 Freq: Q2H Status: Discharge Document 04/20/16 06:53 MAB (Rec: 04/20/16 07:08 MAB [id number]) Vital Signs (Critical Care) Temperature (97.6 F-99.6 F) 98.2 F Temperature Source Oral Pulse Rate 79 Respiratory Rate 18 Pulse Oximetry (95-100) 100 Oxygen Delivery Nasal Cannula Blood Pressure 166/55 Source Automatic Cuff Blood Glucose Assessment Blood Glucose* 148 [address]ing Turn Q 2HR No Patient Position Back Document 04/20/16 07:30 [id number] (Rec: 04/20/16 10:58 [id number]) Vital Signs (Critical Care) Temperature (97.6 F-99.6 F) 98.2 F Temperature Source Oral Pulse Rate 79 Rhythm Sinus Rhythm Right Radial 2+ Left Radial 2+ Right Dorsalis Pedis 1+ Left Dorsalis Pedis Unable to Assess Right Posterior Tibialis 1+ Left Posterior Tibialis Unable to Assess Respiratory Rate 18 Pulse Oximetry (95-100) 100 Oxygen Delivery Nasal Cannula Oxygen Flow Rate (Liters) 2 FiO2: 28 Blood Pressure 166/55 Source Automatic Cuff Neuro Status *Recalled from last Responds to voice documented assessment MEWS Score 2 Blood Glucose Assessment Blood Glucose* 148 Hypoglycemia Symptoms None Hyperglycemia Symptoms None Rounding Hourly Rounding Checked for Patient Positioning Patient Personal Items Placed Within Reach Checked Patient Pain Level Patient Awake Bedrest No Turn Q 2HR Yes Patient Position Right Side Positioning Aides Pillows Head of Bed Position (degrees) 40 Safety Call Light Within Reach Bed Position Low Bed Exit Alarm Fall Precautions Phone Within Reach Bed Brake On Side Rails Up X3 ICU Vent/BIPAP/CPAP Oral Care HOB Degrees 40 [place] Coma Scale Eye Opening To Voice Motor Localizes to Pain Verbal Oriented Coma Scale Total 13 Bilateral Pupil Reaction Reactive Pupil Size (mm) 2 Pupil [place] Equal Document 04/20/16 16:00 [id number] (Rec: 04/20/16 18:33 [id number]) Vital Signs (Critical Care) Temperature (97.6 F-99.6 F) 99.1 F Temperature Source Oral Pulse Rate 92 Rhythm Sinus Rhythm First Degree Block Right Radial 2+ Left Radial 2+ Right Dorsalis Pedis 1+ Left Dorsalis Pedis Unable to Assess Right Posterior Tibialis 1+ Left Posterior Tibialis Unable to Assess Respiratory Rate 16 Pulse Oximetry (95-100) 100 Oxygen Delivery Room Air FiO2: 21 Blood Pressure 146/61 Blood Pressure Mean (mm Hg) 109 Source Automatic Cuff Neuro Status *Recalled from last Responds to voice documented assessment MEWS Score 2 Blood Glucose Assessment Hypoglycemia Symptoms None Hyperglycemia Symptoms None Rounding Hourly Rounding Checked for Patient Positioning Patient Personal Items Placed Within Reach Checked Patient Pain Level Hourly Rounding Completed Yes Patient Awake Bedrest No Turn Q 2HR Yes Patient Position Right Side Positioning Aides Pillows Head of Bed Position (degrees) 40 Safety Call Light Within Reach Bed Position Low Bed Exit Alarm Fall Precautions Phone Within Reach Bed Brake On Side Rails Up X2 ICU Vent/BIPAP/CPAP Oral Care FIO2 Vent/BIPAP/CPAP (%) 28 HOB Degrees 40 [place] Coma Scale Eye Opening Spontaneous Motor Localizes to Pain Verbal Oriented Coma Scale Total 14 Bilateral Pupil Reaction Reactive Pupil Size (mm) 2 Pupil [place] Equal Document 04/20/16 19:30 DIMPLE (Rec: 04/20/16 21:07 DIMPLE [id number]) Blood Glucose Assessment Hypoglycemia Symptoms None Hyperglycemia Symptoms None Pain Assessment Pain Present Reports No Pain Rounding Hourly Rounding Checked for Patient Positioning Patient Personal Items Placed Within Reach Checked Patient Pain Level Hourly Rounding Completed Yes Patient Awake Bedrest Yes Turn Q 2HR Yes Patient Position Right Side Positioning Aides Pillows Specialty Bed In Use Yes Equipment in Use Specialty Bed Safety Call Light Within Reach Bed Position Low Fall Precautions Phone Within Reach Bed Brake On Side Rails Up X2 [place] Coma Scale Eye Opening Spontaneous Motor Obeys Commands Verbal Oriented Coma Scale Total 15 Document 04/20/16 19:38 JNG (Rec: 04/20/16 19:48 JNG [id number]) Vital Signs (Critical Care) Temperature (97.6 F-99.6 F) 101.9 F H Temperature Source Oral Pulse Rate 97 Respiratory Rate 18 Pulse Oximetry (95-100) 98 Oxygen Delivery Room Air Oxygen Flow Rate (Liters) 0 Blood Pressure 143/48 Source Automatic Cuff Blood Glucose Assessment Blood Glucose* 149 Rounding Hourly Rounding Checked for Patient Positioning Patient Helped to Bathroom or Assisted with Bedpan or Urinal Patient Personal Items Placed Within Reach Hourly Rounding Completed Yes Patient Awake Bedrest Yes Turn Q 2HR Yes Patient Position Right Side Positioning Aides Pillows Specialty Bed In Use Yes Equipment in Use Specialty Bed Safety Call Light Within Reach Bed Position Low Bed Exit Alarm Fall Precautions Phone Within Reach Bed Brake On Side Rails Up X2 Document 04/20/16 21:52 JN (Rec: 04/20/16 21:53 JN [id number]) Rounding Hourly Rounding Checked for Patient Positioning Patient Helped to Bathroom or Assisted with Bedpan or Urinal Patient Personal Items Placed Within Reach Hourly Rounding Completed Yes Patient Resting With Eyes Closed Comment RN in room. Bedrest Yes Turn Q 2HR Yes Patient Position Back Positioning Aides Pillows Specialty Bed In Use Yes Equipment in Use Specialty Bed Safety Call Light Within Reach Bed Position Low Fall Precautions Phone Within Reach Bed Brake On Side Rails Up X2 Document 04/20/16 23:05 DIMPLE (Rec: 04/20/16 23:18 DIMPLE [id number]) Blood Glucose Assessment Hypoglycemia Symptoms None Hyperglycemia Symptoms None Pain Assessment Pain Present Reports No Pain Rounding Hourly Rounding Checked for Patient Positioning Patient Personal Items Placed Within Reach Checked Patient Pain Level Hourly Rounding Completed Yes Patient Awake Bedrest Yes Turn Q 2HR Yes Patient Position Back Positioning Aides Pillows Specialty Bed In Use Yes Equipment in Use Specialty Bed Safety Call Light Within Reach Bed Position Low Bed Exit Alarm Fall Precautions Phone Within Reach Bed Brake On Side Rails Up X3 [place] Coma Scale Eye Opening Spontaneous Motor Obeys Commands Verbal Oriented Coma Scale Total 15 Document 04/20/16 23:10 JNG (Rec: 04/20/16 23:14 JNG [id number]) Vital Signs (Critical Care) Temperature (97.6 F-99.6 F) 98.6 F Temperature Source Oral Pulse Rate 81 Respiratory Rate 22 Pulse Oximetry (95-100) 99 Oxygen Delivery Room Air Oxygen Flow Rate (Liters) 0 Blood Pressure 147/60 Source Automatic Cuff Rounding Hourly Rounding Checked for Patient Positioning Patient Helped to Bathroom or Assisted with Bedpan or Urinal Patient Personal Items Placed Within Reach Hourly Rounding Completed Yes Patient Resting With Eyes Closed Comment pt. is coughing. Bath Type Full Bed Bath Bathing Ability Total Assistance 2 Person Assist Linen Change Complete Bedrest Yes Turn Q 2HR Yes Patient Position Back Specialty Bed In Use Yes Equipment in Use Specialty Bed Safety Call Light Within Reach Bed Position Low Fall Precautions Phone Within Reach Bed Brake On Side Rails Up X3 Document 04/21/16 06:00 DIMPLE (Rec: 04/21/16 06:09 DIMPLE [id number]) Blood Glucose Assessment Hypoglycemia Symptoms None Hyperglycemia Symptoms None Pain Assessment Pain Present Reports No Pain Rounding Hourly Rounding Checked for Patient Positioning Patient Personal Items Placed Within Reach Checked Patient Pain Level Hourly Rounding Completed Yes Patient Sleeping Bedrest Yes Turn Q 2HR Yes Patient Position Right Side Positioning Aides Pillows Specialty Bed In Use Yes Equipment in Use Specialty Bed Safety Call Light Within Reach Bed Position Low Fall Precautions Phone Within Reach Bed Brake On Side Rails Up X2 Document 04/21/16 06:37 DIMPLE (Rec: 04/21/16 06:40 DIMPLE [id number]) Vital Signs (Critical Care) Temperature (97.6 F-99.6 F) 100.8 F H Temperature Source Oral Pulse Oximetry (95-100) 89 L Oxygen Delivery Room Air Blood Pressure 148/53 Rounding Hourly Rounding Checked for Patient Positioning Patient Personal Items Placed Within Reach Checked Patient Pain Level Turn Q 2HR Yes Patient Position Right Side Positioning Aides Pillows Specialty Bed In Use Yes Safety Call Light Within Reach Bed Position Low Fall Precautions Phone Within Reach Bed Brake On Side Rails Up X2 Document 04/21/16 07:13 MAB (Rec: 04/21/16 07:19 MAB [id number]) Vital Signs (Critical Care) Pulse Rate 69 Respiratory Rate 16 Blood Glucose Assessment Blood Glucose* 117 Rounding Turn Q 2HR Yes Patient Position Right Side Positioning Aides Pillows Specialty Bed In Use Yes Document 04/21/16 07:30 [id number] (Rec: 04/21/16 07:50 [id number]) Vital Signs (Critical Care) Temperature (97.6 F-99.6 F) 100.8 F H Temperature Source Oral Pulse Rate 69 Rhythm Sinus Rhythm Right Radial 2+ Left Radial 2+ Right Dorsalis Pedis 1+ Left Dorsalis Pedis Unable to Assess Right Posterior Tibialis 1+ Left Posterior Tibialis Unable to Assess Respiratory Rate 16 Pulse Oximetry (95-100) 89 L Oxygen Delivery Room Air FiO2: 21 Blood Pressure 148/53 Neuro Status *Recalled from last Alert documented assessment MEWS Score 4 Blood Glucose Assessment Blood Glucose* 117 Hypoglycemia Symptoms None Hyperglycemia Symptoms None Rounding Hourly Rounding Checked for Patient Positioning Patient Personal Items Placed Within Reach Checked Patient Pain Level Hourly Rounding Completed Yes Patient Sleeping Bedrest Yes Turn Q 2HR Yes Patient Position Right Side Positioning Aides Pillows Head of Bed Position (degrees) 35 Safety Call Light Within Reach Bed Position Low Bed Exit Alarm Fall Precautions Phone Within Reach Bed Brake On Side Rails Up X2 ICU Vent/BIPAP/CPAP Oral Care HOB Degrees 35 [place] Coma Scale Eye Opening To Voice Motor Obeys Commands Verbal Oriented Coma Scale Total 14 Bilateral Pupil Reaction Reactive Pupil Size (mm) 2 Pupil [place] Equal Document 04/21/16 10:00 [id number] (Rec: 04/21/16 10:22 [id number]) Vital Signs (Critical Care) Temperature (97.6 F-99.6 F) 102.5 F H Temperature Source Oral Pulse Rate 62 Rhythm Sinus Rhythm Right Radial 2+ Left Radial 2+ Right Dorsalis Pedis 1+ Left Dorsalis Pedis Unable to Assess Right Posterior Tibialis 1+ Left Posterior Tibialis Unable to Assess Respiratory Rate 16 Pulse Oximetry (95-100) 100 Oxygen Delivery Room Air Oxygen Flow Rate (Liters) 2 FiO2: 28 Blood Pressure 148/53 Neuro Status *Recalled from last Alert documented assessment MEWS Score 3 Rounding Turn Q 2HR Yes Patient Position Left Side ICU Vent/BIPAP/CPAP Oral Care FIO2 Vent/BIPAP/CPAP (%) 21 HOB Degrees 35 [place] Coma Scale Eye Opening To Voice Motor Obeys Commands Verbal Oriented Coma Scale Total 14 Bilateral Pupil Reaction Reactive Pupil Size (mm) 2 Pupil [place] Equal Document 04/21/16 11:08 MAB (Rec: 04/21/16 11:13 MAB [id number]) Vital Signs (Critical Care) Temperature (97.6 F-99.6 F) 99.3 F Temperature Source Oral Pulse Rate 70 Respiratory Rate 15 Pulse Oximetry (95-100) 93 L Oxygen Delivery Room Air Oxygen Flow Rate (Liters) 2 Blood Pressure 144/50 Source Automatic Cuff Blood Glucose Assessment Blood Glucose* 126 Rounding Turn Q 2HR Yes Patient Position Right Side Positioning Aides Pillows Document 04/21/16 11:30 [id number] (Rec: 04/21/16 14:03 [id number]) Vital Signs (Critical Care) Temperature (97.6 F-99.6 F) 99.3 F Temperature Source Oral Pulse Rate 70 Rhythm Sinus Rhythm Right Radial 2+ Left Radial 2+ Right Dorsalis Pedis Unable to Assess Left Dorsalis Pedis Weak Right Posterior Tibialis Unable to Assess Left Posterior Tibialis Weak Respiratory Rate 15 Pulse Oximetry (95-100) 93 L Oxygen Delivery Room Air FiO2: 21 Blood Pressure 144/50 Source Automatic Cuff Neuro Status *Recalled from last Alert documented assessment MEWS Score 1 Blood Glucose Assessment Blood Glucose* 126 Hypoglycemia Symptoms None Hyperglycemia Symptoms None Rounding Hourly Rounding Checked for Patient Positioning Patient Helped to Bathroom or Assisted with Bedpan or Urinal Patient Personal Items Placed Within Reach Checked Patient Pain Level Patient Resting With Eyes Closed Bedrest Yes Turn Q 2HR Yes Patient Position Left Side Positioning Aides Pillows Head of Bed Position (degrees) 40 Safety Call Light Within Reach Bed Position Low Bed Exit Alarm Fall Precautions Phone Within Reach Bed Brake On Side Rails Up X2 ICU Vent/BIPAP/CPAP Oral Care FIO2 Vent/BIPAP/CPAP (%) 21 HOB Degrees 40 [place] Coma Scale Eye Opening To Voice Motor Obeys Commands Verbal Oriented Coma Scale Total 14 Bilateral Pupil Reaction Reactive Pupil Size (mm) 2 Pupil [place] Equal Document 04/21/16 15:00 MAB (Rec: 04/21/16 15:47 MAB [id number]) Vital Signs (Critical Care) Temperature (97.6 F-99.6 F) 98.6 F Temperature Source Oral Pulse Rate 67 Respiratory Rate 16 Pulse Oximetry (95-100) 95 Oxygen Delivery Room Air Blood Pressure 153/60 Source Automatic Cuff Blood Glucose Assessment Blood Glucose* 134 Rounding Turn Q 2HR Yes Patient Position Back Positioning Aides Pillows Document 04/21/16 16:00 [id number] (Rec: 04/21/16 17:40 [id number]) Vital Signs (Critical Care) Temperature (97.6 F-99.6 F) 98.6 F Temperature Source Oral Pulse Rate 67 Rhythm Sinus Rhythm Right Radial 2+ Left Radial 2+ Respiratory Rate 16 Pulse Oximetry (95-100) 95 Oxygen Delivery Room Air FiO2: 21 Blood Pressure 153/60 Source Automatic Cuff Neuro Status *Recalled from last Responds to voice documented assessment MEWS Score 2 Blood Glucose Assessment Blood Glucose* 116 Hypoglycemia Symptoms None Hyperglycemia Symptoms None Rounding Hourly Rounding Checked for Patient Positioning Patient Personal Items Placed Within Reach Checked Patient Pain Level Hourly Rounding Completed Yes Patient Awake Bedrest No Turn Q 2HR Yes Patient Position Right Side Positioning Aides Pillows Head of Bed Position (degrees) 35 Safety Call Light Within Reach Bed Position Low Bed Exit Alarm Fall Precautions Phone Within Reach Bed Brake On Side Rails Up X3 ICU Vent/BIPAP/CPAP Oral Care FIO2 Vent/BIPAP/CPAP (%) 21 HOB Degrees 35 [place] Coma Scale Eye Opening Spontaneous Motor Obeys Commands Verbal Oriented Coma Scale Total 15 Bilateral Pupil Reaction Reactive Pupil Size (mm) 2 Pupil [place] Equal Document 04/21/16 19:15 TNM (Rec: 04/21/16 19:17 [facility] [id number]) Vital Signs (Critical Care) Temperature (97.6 F-99.6 F) 97.8 F Temperature Source Oral Pulse Rate 65 Respiratory Rate 16 Pulse Oximetry (95-100) 96 Oxygen Delivery Room Air Blood Pressure 153/60 Source Automatic Cuff Rounding Hourly Rounding Checked for Patient Positioning Patient Personal Items Placed Within Reach Hourly Rounding Completed Yes Patient Awake Bedrest Yes Turn Q 2HR Yes Patient Position Left Side Positioning Aides Pillows Safety Call Light Within Reach Bed Position Low Fall Precautions Phone Within Reach Bed Brake On Side Rails Up X3 Document 04/21/16 21:15 TNM (Rec: 04/21/16 23:33 TNM [id number]) Blood Glucose Assessment Blood Glucose* 140 Action Taken RN will be notified. Rounding Bedrest Yes Turn Q 2HR Yes Patient Position Back Document 04/21/16 23:53 TNM (Rec: 04/21/16 23:58 TNM [id number]) Vital Signs (Critical Care) Temperature (97.6 F-99.6 F) 98.4 F Temperature Source Oral Pulse Rate 71 Respiratory Rate 16 Pulse Oximetry (95-100) 97 Oxygen Delivery Nasal Cannula Blood Pressure 174/77 Source Automatic Cuff Rounding Hourly Rounding Checked for Patient Positioning Patient Personal Items Placed Within Reach Hourly Rounding Completed Yes Patient Sleeping Bedrest Yes Turn Q 2HR Yes Patient Position Right Side Positioning Aides Pillows Specialty Bed In Use Yes Equipment in Use Specialty Bed Safety Call Light Within Reach Bed Position Low Bed Exit Alarm Fall Precautions Phone Within Reach Bed Brake On Side Rails Up X3 Document 04/22/16 00:20 TNM (Rec: 04/22/16 00:21 TNM [id number]) Rounding Bath Type Partial Bed Bath Bathing Ability Maximum Assistance 2 Person Assist [place] Care Completed By Staff Linen Change Partial Turn Q 2HR Yes Patient Position Right Side Positioning Aides Pillows Equipment in Use Specialty Bed Document 04/22/16 01:20 SGB (Rec: 04/22/16 15:14 SGB [id number]) Rounding Hourly Rounding Checked for Patient Positioning Patient Personal Items Placed Within Reach Hourly Rounding Completed Yes Patient Awake Bedrest Yes Turn Q 2HR Yes Patient Position Back Safety Call Light Within Reach Bed Position Low Bed Exit Alarm Fall Precautions Phone Within Reach Bed Brake On Side Rails Up X3 Document 04/22/16 04:21 TNM (Rec: 04/22/16 04:28 TNM [id number]) Vital Signs (Critical Care) Temperature (97.6 F-99.6 F) 98.6 F Temperature Source Oral Pulse Rate 88 Respiratory Rate 18 Pulse Oximetry (95-100) 93 L Oxygen Delivery Room Air Blood Pressure 179/75 Source Automatic Cuff Weight Assessment Weight 86 kg Weight Measurement Method Built in Bedscale Rounding Hourly Rounding Checked for Patient Positioning Patient Personal Items Placed Within Reach Hourly Rounding Completed Yes Patient Awake Bedrest Yes Turn Q 2HR Yes Patient Position Back Specialty Bed In Use Yes Equipment in Use Specialty Bed Safety Call Light Within Reach Bed Position Low Bed Exit Alarm Fall Precautions Phone Within Reach Bed Brake On Side Rails Up X3 Document 04/22/16 07:20 SGB (Rec: 04/22/16 07:23 SGB [id number]) Vital Signs (Critical Care) Temperature (97.6 F-99.6 F) 100.1 F H Temperature Source Oral Pulse Rate 97 Respiratory Rate 16 Pulse Oximetry (95-100) 92 L Oxygen Delivery Room Air Blood Pressure 163/57 Source Automatic Cuff Blood Glucose Assessment Blood Glucose* 173 Rounding Hourly Rounding Checked for Patient Positioning Patient Personal Items Placed Within Reach Hourly Rounding Completed Yes Patient Sleeping Bedrest Yes Turn Q 2HR Yes Patient Position Right Side Safety Call Light Within Reach Bed Position Low Bed Exit Alarm Fall Precautions Phone Within Reach Bed Brake On Side Rails Up X3 Document 04/22/16 08:00 LJS (Rec: 04/22/16 10:42 LJS [id number]) Pain Assessment Pain Present Reports Pain Head Pain Intensity 6 Description Ache Scale Used Numeric (1 - 10) Pain Intervention Medication Rounding Hourly Rounding Checked for Patient Positioning Patient Helped to Bathroom or Assisted with Bedpan or Urinal Patient Personal Items Placed Within Reach Checked Patient Pain Level Hourly Rounding Completed Yes Patient Awake Bedrest Yes Turn Q 2HR Yes Patient Position Right Side Equipment in Use Specialty Bed Safety Call Light Within Reach Bed Position Low Bed Exit Alarm Fall Precautions Phone Within Reach Bed Brake On Side Rails Up X2 [place] Coma Scale Eye Opening Spontaneous Motor Obeys Commands Verbal Oriented Coma Scale Total 15 Bilateral Pupil Reaction Reactive Pupil Size (mm) 2 Pupil [place] Equal Document 04/22/16 09:20 SGB (Rec: 04/22/16 11:45 SGB [id number]) Rounding Hourly Rounding Checked for Patient Positioning Patient Personal Items Placed Within Reach Hourly Rounding Completed Yes Patient Awake Bedrest Yes Turn Q 2HR Yes Patient Position Back Safety Call Light Within Reach Bed Position Low Bed Exit Alarm Fall Precautions Phone Within Reach Bed Brake On Side Rails Up X3 Document 04/22/16 11:19 SGB (Rec: 04/22/16 11:26 SGB [id number]) Vital Signs (Critical Care) Temperature (97.6 F-99.6 F) 98.7 F Temperature Source Oral Pulse Rate 94 Respiratory Rate 14 Pulse Oximetry (95-100) 99 Oxygen Delivery Nasal Cannula Oxygen Flow Rate (Liters) 1.5 Blood Pressure 95/44 Source Automatic Cuff Blood Glucose Assessment Blood Glucose* 100 Rounding Hourly Rounding Checked for Patient Positioning Patient Personal Items Placed Within Reach Hourly Rounding Completed Yes Patient Awake Bath Type Full Bed Bath Bathing Ability Maximum Assistance 2 Person Assist [place] Care Completed By Staff Linen Change Complete Bedrest Yes Turn Q 2HR Yes Patient Position Right Side Safety Call Light Within Reach Bed Position Low Bed Exit Alarm Fall Precautions Phone Within Reach Bed Brake On Side Rails Up X3 Document 04/22/16 11:45 LJS (Rec: 04/22/16 12:32 LJS [id number]) Pain Assessment Pain Present Reports No Pain Rounding Hourly Rounding Checked for Patient Positioning Patient Helped to Bathroom or Assisted with Bedpan or Urinal Patient Personal Items Placed Within Reach Checked Patient Pain Level Hourly Rounding Completed Yes Patient Awake Bedrest Yes Turn Q 2HR Yes Patient Position Right Side Equipment in Use Specialty Bed Safety Call Light Within Reach Bed Position Low Bed Exit Alarm Fall Precautions Phone Within Reach Bed Brake On Side Rails Up X2 [place] Coma Scale Eye Opening Spontaneous Motor Obeys Commands Verbal Oriented Coma Scale Total 15 Bilateral Pupil Reaction Reactive Pupil Size (mm) 2 Pupil [place] Equal Document 04/22/16 15:09 SGB (Rec: 04/22/16 15:13 SGB [id number]) Vital Signs (Critical Care) Temperature (97.6 F-99.6 F) 98.3 F Temperature Source Oral Pulse Rate 60 Respiratory Rate 16 Pulse Oximetry (95-100) 99 Oxygen Delivery Nasal Cannula Blood Pressure 137/36 Source Automatic Cuff Blood Glucose Assessment Blood Glucose* 127 Rounding Hourly Rounding Checked for Patient Positioning Patient Helped to Bathroom or Assisted with Bedpan or Urinal Patient Personal Items Placed Within Reach Hourly Rounding Completed Yes Patient Awake Bedrest Yes Turn Q 2HR Yes Patient Position Left Side Safety Call Light Within Reach Bed Position Low Bed Exit Alarm Fall Precautions Phone Within Reach Bed Brake On Side Rails Up X3 Document 04/22/16 17:15 LJS (Rec: 04/22/16 17:15 LJS [id number]) Rounding Hourly Rounding Checked for Patient Positioning Patient Helped to Bathroom or Assisted with Bedpan or Urinal Patient Personal Items Placed Within Reach Checked Patient Pain Level Hourly Rounding Completed Yes Patient Awake Bedrest Yes Turn Q 2HR Yes Patient Position Right Side Safety Call Light Within Reach Bed Position Low Bed Exit Alarm Fall Precautions Phone Within Reach Bed Brake On Side Rails Up X2 Document 04/22/16 19:04 JNG (Rec: 04/22/16 19:12 JNG [id number]) Vital Signs (Critical Care) Temperature (97.6 F-99.6 F) 98.4 F Temperature Source Oral Pulse Rate 79 Respiratory Rate 20 Pulse Oximetry (95-100) 98 Oxygen Delivery Nasal Cannula Oxygen Flow Rate (Liters) 1.5 Blood Pressure 144/67 Source Automatic Cuff Rounding Hourly Rounding Checked for Patient Positioning Patient Helped to Bathroom or Assisted with Bedpan or Urinal Patient Personal Items Placed Within Reach Hourly Rounding Completed Yes Patient Awake Comment pt. refused turning and heel boot Bedrest Yes Turn Q 2HR Yes Patient Position Right Side Equipment in Use Specialty Bed Safety Call Light Within Reach Bed Position Low Bed Exit Alarm Fall Precautions Phone Within Reach Bed Brake On Side Rails Up X3 Document 04/22/16 19:54 JCL (Rec: 04/22/16 22:12 JCL [id number]) Pain Assessment Pain Present Reports No Pain Rounding Hourly Rounding Checked for Patient Positioning Patient Personal Items Placed Within Reach Checked Patient Pain Level Hourly Rounding Completed Yes Patient Awake Comment Patient resting in bed, no destress noted. States no needs. Bedrest Yes Turn Q 2HR Yes Patient Position Right Side Safety Call Light Within Reach Bed Position Low Bed Exit Alarm Fall Precautions Phone Within Reach Bed Brake On Side Rails Up X2 Document 04/22/16 20:20 JCL (Rec: 04/22/16 22:11 JCL [id number]) Rounding Hourly Rounding Checked for Patient Positioning Patient Personal Items Placed Within Reach Checked Patient Pain Level Hourly Rounding Completed Yes Patient Awake Comment Patient awakened for assessment. States no wants or needs at this time. Bedrest Yes Turn Q 2HR Yes Patient Position Right Side Specialty Bed In Use Patient refuses turn at this time. Safety Call Light Within Reach Bed Position Low Bed Exit Alarm Fall Precautions Phone Within Reach Bed Brake On Side Rails Up X2 [place] Coma Scale Eye Opening Spontaneous Motor Obeys Commands Verbal Confused Coma Scale Total 14 Document 04/22/16 21:25 JNG (Rec: 04/22/16 21:29 JNG [id number]) Blood Glucose Assessment Blood Glucose* 99 Rounding Hourly Rounding Checked for Patient Positioning Patient Helped to Bathroom or Assisted with Bedpan or Urinal Patient Personal Items Placed Within Reach Hourly Rounding Completed Yes Patient Awake Bedrest Yes Turn Q 2HR Yes Patient Position Left Side Equipment in Use Specialty Bed Safety Call Light Within Reach Bed Position Low Bed Exit Alarm Fall Precautions Phone Within Reach Bed Brake On Side Rails Up X3 Document 04/22/16 21:32 JCL (Rec: 04/22/16 22:13 JCL [id number]) Pain Assessment Pain Present Reports No Pain Rounding Hourly Rounding Checked for Patient Positioning Patient Personal Items Placed Within Reach Checked Patient Pain Level Hourly Rounding Completed Yes Patient Awake Comment Patient reports no needs at this time. Bedrest Yes Turn Q 2HR Yes Patient Position Left Side Specialty Bed In Use Patient turned and adjusted in bed. Safety Call Light Within Reach Bed Position Low Bed Exit Alarm Fall Precautions Phone Within Reach Bed Brake On Side Rails Up X2 Document 04/22/16 23:08 JN (Rec: 04/22/16 23:13 JN [id number]) Vital Signs (Critical Care) Temperature (97.6 F-99.6 F) 98.8 F Temperature Source Oral Pulse Rate 67 Respiratory Rate 20 Pulse Oximetry (95-100) 97 Oxygen Delivery Nasal Cannula Blood Pressure 136/57 Source Automatic Cuff Rounding Hourly Rounding Checked for Patient Positioning Patient Helped to Bathroom or Assisted with Bedpan or Urinal Patient Personal Items Placed Within Reach Hourly Rounding Completed Yes Patient Resting With Eyes Closed Comment pt. refuses turning at this time. Bedrest Yes Turn Q 2HR Yes Patient Position Left Side Specialty Bed In Use Yes Equipment in Use Specialty Bed Safety Call Light Within Reach Bed Position Low Bed Exit Alarm Fall Precautions Phone Within Reach Bed Brake On Side Rails Up X3 Document 04/22/16 23:42 JCL (Rec: 04/23/16 01:40 JCL [id number]) Vital Signs (Critical Care) Temperature (97.6 F-99.6 F) 99.0 F Temperature Source Oral Pulse Rate 70 Rhythm Sinus Rhythm First Degree Block Respiratory Rate 18 Pulse Oximetry (95-100) 96 Oxygen Delivery Room Air Blood Pressure 144/94 Blood Pressure Mean (mm Hg) 100 Source Automatic Cuff Neuro Status *Recalled from last Agitation/Confusion documented assessment MEWS Score 2 Rounding Hourly Rounding Checked for Patient Positioning Patient Personal Items Placed Within Reach Checked Patient Pain Level Hourly Rounding Completed Yes Patient Awake Comment Patient awakened for assessment. Bedrest Yes Turn Q 2HR Yes Patient Position Left Side Specialty Bed In Use Patient refused to be turned. Equipment in Use Specialty Bed Safety Call Light Within Reach Bed Position Low Bed Exit Alarm Fall Precautions Phone Within Reach Bed Brake On Side Rails Up X3 [place] Coma Scale Eye Opening Spontaneous Motor Obeys Commands Verbal Confused Coma Scale Total 14 Document 04/23/16 04:25 JCL (Rec: 04/23/16 05:00 [id number] [id number]) Vital Signs (Critical Care) Temperature (97.6 F-99.6 F) 98.2 F Temperature Source Oral Pulse Rate 72 Rhythm Sinus Rhythm First Degree Block PAC Respiratory Rate 18 Pulse Oximetry (95-100) 96 Oxygen Delivery Nasal Cannula Oxygen Flow Rate (Liters) 1.5 Blood Pressure 134/54 Blood Pressure Mean (mm Hg) 85 Source Automatic Cuff Neuro Status *Recalled from last Agitation/Confusion documented assessment MEWS Score 2 Weight Assessment Weight 85.1 kg Weight Measurement Method Built in [facility] Pain Assessment Pain Present Reports No Pain Rounding Hourly Rounding Checked for Patient Positioning Patient Personal Items Placed Within Reach Checked Patient Pain Level Hourly Rounding Completed Yes Patient Awake Comment Patient in bed. No signs of destress noted. Bedrest Yes Turn Q 2HR Yes Patient Position Right Side Specialty Bed In Use Patient refused turn. Equipment in Use Specialty Bed Safety Call Light Within Reach Bed Position Low Bed Exit Alarm Fall Precautions Phone Within Reach Bed Brake On Side Rails Up X2 [place] Coma Scale Eye Opening Spontaneous Motor Obeys Commands Verbal Confused Coma Scale Total 14 Document 04/23/16 06:35 JCL (Rec: 04/23/16 06:41 JCL [id number]) Pain Assessment Pain Present Reports No Pain Rounding Hourly Rounding Checked for Patient Positioning Patient Personal Items Placed Within Reach Checked Patient Pain Level Hourly Rounding Completed Yes Patient Awake Comment Patient awakened for lead change. Bedrest Yes Turn Q 2HR Yes Patient Position Left Side Specialty Bed In Use Patient turned and adjusted in bed. Safety Call Light Within Reach Bed Position Low Bed Exit Alarm Fall Precautions Phone Within Reach Bed Brake On Side Rails Up X3 Document 04/23/16 07:30 [facility] (Rec: 04/23/16 09:49 [facility] [id number]) Blood Glucose Assessment Hypoglycemia Symptoms None Pain Assessment Pain Present Reports No Pain Rounding Hourly Rounding Checked for Patient Positioning Patient Helped to Bathroom or Assisted with Bedpan or Urinal Patient Personal Items Placed Within Reach Checked Patient Pain Level Hourly Rounding Completed Yes Patient Awake Bedrest Yes Turn Q 2HR Yes Patient Position Right Side Positioning Aides Pillows Specialty Bed In Use Yes Equipment in Use Specialty Bed Safety Call Light Within Reach Bed Position Low Bed Exit Alarm Fall Precautions Phone Within Reach Bed Brake On Side Rails Up X2 [place] Coma Scale Eye Opening Spontaneous Motor Obeys Commands Verbal Confused Coma Scale Total 14 Left Pupil Reaction Reactive Pupil Size (mm) 2 Pupil [place] Equal Document 04/23/16 07:42 [id number] (Rec: 04/23/16 07:47 [id number]) Vital Signs (Critical Care) Temperature (97.6 F-99.6 F) 98.2 F Temperature Source Oral Pulse Rate 66 Respiratory Rate 18 Pulse Oximetry (95-100) 97 Oxygen Delivery Nasal Cannula Blood Pressure 117/63 Source Automatic Cuff Blood Glucose Assessment Blood Glucose* 93 Action Taken on board/informed rn Rounding Turn Q 2HR Yes Patient Position Right Side Document 04/23/16 11:15 LJS (Rec: 04/23/16 12:30 [id number] Pain Assessment Pain Present Reports Pain Posterior Pain Intensity 10 Description Ache Scale Used Numeric (1 - 10) Pain Intervention Medication Rounding Hourly Rounding Checked for Patient Positioning Patient Helped to Bathroom or Assisted with Bedpan or Urinal Patient Personal Items Placed Within Reach Checked Patient Pain Level Hourly Rounding Completed Yes Patient Awake Turn Q 2HR Yes Patient Position Left Side Positioning Aides Pillows Equipment in Use Specialty Bed Safety Call Light Within Reach Bed Position Low Bed Exit Alarm Fall Precautions Phone Within Reach Bed Brake On Side Rails Up X2 [place] Coma Scale Eye Opening Spontaneous Motor Obeys Commands Verbal Confused Coma Scale Total 14 Left Pupil Reaction Reactive Pupil Size (mm) 2 Pupil [place] Equal Right Pupil Reaction Unreactive Pupil Size (mm) 2 Pupil [place] Equal Document 04/23/16 11:39 [id number] (Rec: 04/23/16 11:43 [id number]) Vital Signs (Critical Care) Temperature (97.6 F-99.6 F) 100.1 F H Temperature Source Oral Pulse Rate 71 Respiratory Rate 16 Pulse Oximetry (95-100) 92 L Oxygen Delivery Nasal Cannula Blood Pressure 162/60 Source Automatic Cuff Blood Glucose Assessment Blood Glucose* 84 Action Taken on board/informed rn Rounding Turn Q 2HR Yes Patient Position Left Side Document 04/23/16 13:00 S (Rec: 04/23/16 15:45 [id number] Pain Assessment Pain Present Reports No Pain Rounding Hourly Rounding Checked for Patient Positioning Patient Helped to Bathroom or Assisted with Bedpan or Urinal Patient Personal Items Placed Within Reach Checked Patient Pain Level Hourly Rounding Completed Yes Patient Awake Turn Q 2HR Yes Patient Position Right Side Equipment in Use Specialty Bed Safety Call Light Within Reach Bed Position Low Bed Exit Alarm Fall Precautions Phone Within Reach Bed Brake On Side Rails Up X2 Document 04/23/16 15:45 [facility] (Rec: 04/23/16 15:51 [id number]) Pain Assessment Pain Present Reports Pain Bilateral Heels Pain Intensity 6 Description Ache Pain Intervention Position Rounding Hourly Rounding Checked for Patient Positioning Patient Helped to Bathroom or Assisted with Bedpan or Urinal Patient Personal Items Placed Within Reach Checked Patient Pain Level Hourly Rounding Completed Yes Patient Awake Bedrest Yes Turn Q 2HR Yes Patient Position Left Side Equipment in Use Specialty Bed Safety Call Light Within Reach Bed Position Low Bed Exit Alarm Fall Precautions Phone Within Reach Bed Brake On Side Rails Up X2 [place] Coma Scale Eye Opening Spontaneous Motor Obeys Commands Verbal Confused Coma Scale Total 14 Left Pupil Reaction Reactive Pupil Size (mm) 2 Pupil [place] Equal Right Pupil Reaction Unreactive Pupil Size (mm) 2 Pupil [place] Equal Document 04/23/16 16:26 [id number] (Rec: 04/23/16 16:30 [id number]) Vital Signs (Critical Care) Temperature (97.6 F-99.6 F) 98.5 F Temperature Source Oral Pulse Rate 79 Respiratory Rate 18 Pulse Oximetry (95-100) 96 Oxygen Delivery Nasal Cannula Blood Pressure 155/61 Source Automatic Cuff Blood Glucose Assessment Blood Glucose* 95 Action Taken on board/informed rn Rounding Turn Q 2HR Yes Patient Position Back Document 04/23/16 18:43 BJS (Rec: 04/23/16 18:49 BJS [id number]) Vital Signs (Critical Care) Temperature (97.6 F-99.6 F) 99.7 F H Temperature Source Oral Pulse Rate 81 Respiratory Rate 16 Pulse Oximetry (95-100) 96 Oxygen Delivery Nasal Cannula Oxygen Flow Rate (Liters) 1.5 Blood Pressure 148/61 Source Automatic Cuff Rounding Hourly Rounding Checked for Patient Positioning Patient Personal Items Placed Within Reach Hourly Rounding Completed Yes Patient Awake Bedrest Yes Turn Q 2HR Yes Patient Position Right Side Equipment in Use Specialty Bed Safety Call Light Within Reach Bed Position Low Bed Exit Alarm Fall Precautions Phone Within Reach Bed Brake On Side Rails Up X3 Document 04/23/16 19:48 JCL (Rec: 04/23/16 21:11 JCL [id number]) Rounding Hourly Rounding Checked for Patient Positioning Patient Personal Items Placed Within Reach Checked Patient Pain Level Hourly Rounding Completed Yes Patient Awake Comment Patient resting in bed. States no needs at this time. Bedrest Yes Turn Q 2HR Yes Patient Position Right Side Equipment in Use Specialty Bed Safety Call Light Within Reach Bed Position Low Bed Exit Alarm Fall Precautions Phone Within Reach Bed Brake On Side Rails Up X2 [place] Coma Scale Eye Opening Spontaneous Motor Obeys Commands Verbal Confused Coma Scale Total 14 Left Pupil Reaction Reactive Pupil Size (mm) 2 Pupil [place] Equal Right Pupil Reaction Unreactive Pupil Size (mm) 2 Pupil [place] Equal Document 04/23/16 19:54 BJS (Rec: 04/23/16 19:57 BJS [id number]) Blood Glucose Assessment Blood Glucose* 114 Action Taken RN notified, board updated Rounding Hourly Rounding Checked for Patient Positioning Patient Personal Items Placed Within Reach Hourly Rounding Completed Yes Patient Awake Bedrest Yes Turn Q 2HR Yes Patient Position Right Side Equipment in Use Specialty Bed Safety Call Light Within Reach Bed Position Low Bed Exit Alarm Fall Precautions Phone Within Reach Bed Brake On Side Rails Up X3 Document 04/23/16 21:22 JCL (Rec: 04/23/16 21:34 JCL [id number]) Pain Assessment Pain Present Reports No Pain Rounding Hourly Rounding Checked for Patient Positioning Patient Personal Items Placed Within Reach Checked Patient Pain Level Hourly Rounding Completed Yes Patient Awake Comment Patient lying in bed. Assissted with phone call. Bedrest Yes Turn Q 2HR Yes Patient Position Right Side Positioning Aides Pillows Specialty Bed In Use Patient refused turn. Equipment in Use Suction at Bedside Safety Call Light Within Reach Bed Position Low Bed Exit Alarm Fall Precautions Phone Within Reach Bed Brake On Side Rails Up X2 Document 04/23/16 22:31 JNV (Rec: 04/23/16 22:32 JNV [id number]) Rounding Hourly Rounding Checked for Patient Positioning Patient Personal Items Placed Within Reach Hourly Rounding Completed Yes Patient Resting With Eyes Closed Bedrest Yes Turn Q 2HR Yes Patient Position Right Side Positioning Aides Pillows Equipment in Use Suction at Bedside Safety Call Light Within Reach Bed Exit Alarm Fall Precautions Phone Within Reach Bed Brake On Side Rails Up X2 Document 04/23/16 23:54 JCL (Rec: 04/24/16 00:49 JCL [id number]) Vital Signs (Critical Care) Temperature (97.6 F-99.6 F) 100.0 F H Temperature Source Oral Pulse Rate 69 Rhythm Sinus Rhythm First Degree Block Bundle Branch Block Respiratory Rate 20 Pulse Oximetry (95-100) 100 Oxygen Delivery Nasal Cannula Oxygen Flow Rate (Liters) 1.5 Blood Pressure 147/53 Blood Pressure Mean (mm Hg) 96 Source Automatic Cuff Neuro Status *Recalled from last Agitation/Confusion documented assessment MEWS Score 2 Rounding Hourly Rounding Checked for Patient Positioning Patient Personal Items Placed Within Reach Checked Patient Pain Level Hourly Rounding Completed Yes Patient Awake Comment Patient awakened for assessment Bedrest Yes Turn Q 2HR Yes Patient Position Left Side Positioning Aides Pillows Specialty Bed In Use Patient turned and adjusted in bed. Equipment in Use Specialty Bed Safety Call Light Within Reach Bed Position Low Bed Exit Alarm Fall Precautions Phone Within Reach Bed Brake On Side Rails Up X3 [place] Coma Scale Eye Opening Spontaneous Motor Obeys Commands Verbal Confused Coma Scale Total 14 Document 04/24/16 01:22 JNV (Rec: 04/24/16 01:22 JNV [id number]) Rounding Hourly Rounding Checked for Patient Positioning Patient Personal Items Placed Within Reach Hourly Rounding Completed Yes Patient Awake Bedrest Yes Turn Q 2HR Yes Patient Position Right Side Positioning Aides Pillows Specialty Bed In Use patient turned Equipment in Use Specialty Bed Safety Call Light Within Reach Bed Position Low Bed Exit Alarm Fall Precautions Phone Within Reach Bed Brake On Side Rails Up X3 Document 04/24/16 03:24 JNV (Rec: 04/24/16 03:31 JNV [id number]) Vital Signs (Critical Care) Temperature (97.6 F-99.6 F) 99.6 F Temperature Source Oral Pulse Rate 74 Respiratory Rate 24 Pulse Oximetry (95-100) 100 Oxygen Delivery Nasal Cannula Oxygen Flow Rate (Liters) 1.5 Blood Pressure 127/65 Source Automatic Cuff Weight Assessment Weight 85.5 kg Weight Measurement Method Built in [facility] Rounding Hourly Rounding Checked for Patient Positioning Patient Personal Items Placed Within Reach Hourly Rounding Completed Yes Patient Awake Bedrest Yes Turn Q 2HR No Patient Position Right Side Positioning Aides Pillows Specialty Bed In Use patient refused to turn right now Equipment in Use Specialty Bed Safety Call Light Within Reach Bed Position Low Bed Exit Alarm Fall Precautions Phone Within Reach Bed Brake On Side Rails Up X2 Document 04/24/16 03:37 JCL (Rec: 04/24/16 04:57 JCL [id number]) Rounding Hourly Rounding Checked for Patient Positioning Patient Personal Items Placed Within Reach Checked Patient Pain Level Hourly Rounding Completed Yes Patient Awake Comment Patient awakened for assessment. [facility] Completed By Staff Oral Care Lip Moisturizer Gums Brushed Tongue Cleaned Mouth Swabbed Bedrest Yes Turn Q 2HR Yes Patient Position Right Side Positioning Aides Pillows Specialty Bed In Use Patient refused turn at this time. Equipment in Use Specialty Bed Safety Call Light Within Reach Bed Position Low Bed Exit Alarm Fall Precautions Phone Within Reach Bed Brake On Side Rails Up X2 ICU Vent/BIPAP/CPAP Oral Care Mouth Swabbed Yes Document 04/24/16 06:28 JCL (Rec: 04/24/16 06:30 JCL [id number]) Pain Assessment Pain Present Allowed to Sleep Rounding Hourly Rounding Checked for Patient Positioning Patient Personal Items Placed Within Reach Hourly Rounding Completed Yes Patient Sleeping Comment Patient resting with eyes closed. No signs of destress noted. Bedrest Yes Turn Q 2HR Yes Patient Position Right Side Safety Call Light Within Reach Bed Position Low Bed Exit Alarm Fall Precautions Phone Within Reach Bed Brake On Side Rails Up X2 Document 04/24/16 10:31 [id number] (Rec: 04/24/16 10:33 [id number]) Vital Signs (Critical Care) Temperature (97.6 F-99.6 F) 97.9 F Temperature Source Oral Pulse Rate 62 Respiratory Rate 18 Pulse Oximetry (95-100) 92 L Oxygen Delivery Nasal Cannula Blood Pressure 131/61 Source Automatic Cuff Blood Glucose Assessment Blood Glucose* 138 Action Taken on board/informed rn Rounding Turn Q 2HR Yes Patient Position Left Side Document 04/24/16 12:00 [id number] (Rec: 04/24/16 12:06 [id number]) Pain Assessment Pain Present Allowed to Sleep Rounding Hourly Rounding Checked for Patient Positioning Patient Personal Items Placed Within Reach Checked Patient Pain Level Hourly Rounding Completed Yes Patient Awake Bedrest Yes Turn Q 2HR Yes Patient Position Left Side Equipment in Use Specialty Bed Safety Call Light Within Reach Bed Position Low Bed Exit Alarm Fall Precautions Phone Within Reach Bed Brake On Side Rails Up X2 Document 04/24/16 13:05 [id number] (Rec: 04/24/16 13:06 RKS [id number]) Pain Assessment Pain Present Reports Pain Posterior Pain Intensity 3 Description Ache Scale Used Numeric (1 - 10) Pain Intervention Position Rounding Hourly Rounding Checked for Patient Positioning Patient Personal Items Placed Within Reach Checked Patient Pain Level Hourly Rounding Completed Yes Patient Awake Bedrest No Turn Q 2HR No Patient Position Right Side Safety Call Light Within Reach Bed Position Low Fall Precautions Phone Within Reach Bed Brake On Side Rails Up X2 [place] Coma Scale Eye Opening Spontaneous Motor Obeys Commands Verbal Confused Coma Scale Total 14 Document 04/24/16 15:28 [facility] (Rec: 04/24/16 15:35 [id number] Rounding Hourly Rounding Checked for Patient Positioning Patient Personal Items Placed Within Reach Checked Patient Pain Level Hourly Rounding Completed Yes Patient Awake Bedrest No Turn Q 2HR No Patient Position Back Safety Call Light Within Reach Bed Position Low Fall Precautions Phone Within Reach Bed Brake On Side Rails Up X2 [place] Coma Scale Eye Opening Spontaneous Motor Obeys Commands Verbal Oriented Coma Scale Total 15 Document 04/24/16 16:03 [id number] (Rec: 04/24/16 16:07 [id number]) Vital Signs (Critical Care) Temperature (97.6 F-99.6 F) 97.6 F Temperature Source Axillary Pulse Rate 64 Respiratory Rate 16 Pulse Oximetry (95-100) 100 Oxygen Delivery Nasal Cannula Blood Pressure 119/49 Source Automatic Cuff Blood Glucose Assessment Blood Glucose* 178 Action Taken on board/informed rn Rounding Turn Q 2HR Yes Patient Position Right Side Document 04/24/16 17:17 [facility] (Rec: 04/24/16 17:18 [id number] Pain Assessment Pain Present Reports Pain Left Knee Pain Intensity 3 Description Ache Scale Used Numeric (1 - 10) Pain Intervention Position Rounding Hourly Rounding Checked for Patient Positioning Patient Personal Items Placed Within Reach Checked Patient Pain Level Hourly Rounding Completed Yes Patient Awake Bedrest No Turn Q 2HR No Patient Position Back Safety Call Light Within Reach Bed Position Low Fall Precautions Phone Within Reach Bed Brake On Side Rails Up X2 [place] Coma Scale Eye Opening Spontaneous Motor Obeys Commands Verbal Oriented Coma Scale Total 15 Document 04/24/16 19:36 JCL (Rec: 04/24/16 21:43 JCL [id number]) Rounding Hourly Rounding Checked for Patient Positioning Patient Personal Items Placed Within Reach Checked Patient Pain Level Hourly Rounding Completed Yes Patient Awake Comment Patient resting in bed. Patient refused turned. Bedrest Yes Turn Q 2HR Yes Patient Position Right Side Specialty Bed In Use Patient refused turn at this time. Safety Call Light Within Reach Bed Position Low Bed Exit Alarm Fall Precautions Phone Within Reach Bed Brake On Side Rails Up X2 [place] Coma Scale Eye Opening Spontaneous Motor Obeys Commands Verbal Oriented Coma Scale Total 15 Left Pupil Reaction Reactive Pupil Size (mm) 2 Pupil [place] Equal Right Pupil Reaction Unreactive Pupil Size (mm) 2 Pupil [place] Equal Document 04/24/16 20:26 JNV (Rec: 04/24/16 20:29 JNV [id number]) Vital Signs (Critical Care) Temperature (97.6 F-99.6 F) 98.0 F Temperature Source Oral Pulse Rate 70 Respiratory Rate 16 Pulse Oximetry (95-100) 100 Oxygen Delivery Nasal Cannula Blood Pressure 95/52 Source Automatic Cuff Blood Glucose Assessment Blood Glucose* 134 Rounding Hourly Rounding Checked for Patient Positioning Patient Personal Items Placed Within Reach Hourly Rounding Completed Yes Patient Awake Bedrest No Turn Q 2HR No Patient Position Right Side Safety Call Light Within Reach Bed Position Low Fall Precautions Phone Within Reach Bed Brake On Side Rails Up X2 Document 04/24/16 21:20 JCL (Rec: 04/24/16 21:44 JCL [id number]) Pain Assessment Pain Present Allowed to Sleep Rounding Hourly Rounding Checked for Patient Positioning Patient Personal Items Placed Within Reach Hourly Rounding Completed Yes Patient Sleeping Bedrest Yes Turn Q 2HR Yes Patient Position Right Side Safety Call Light Within Reach Bed Position Low Bed Exit Alarm Fall Precautions Phone Within Reach Bed Brake On Side Rails Up X2 Document 04/24/16 22:11 JNV (Rec: 04/24/16 22:12 JNV [id number]) Rounding Hourly Rounding Checked for Patient Positioning Patient Personal Items Placed Within Reach Hourly Rounding Completed Yes Patient Resting With Eyes Closed Comment adjusted patient, comfortable om right side Bedrest Yes Turn Q 2HR Yes Patient Position Right Side Safety Call Light Within Reach Bed Position Low Fall Precautions Phone Within Reach Bed Brake On Side Rails Up X2 Document 04/24/16 23:57 JCL (Rec: 04/25/16 01:00 JCL [id number]) Vital Signs (Critical Care) Temperature (97.6 F-99.6 F) 97.7 F Temperature Source Oral Pulse Rate 72 Rhythm Sinus Rhythm First Degree Block Right Radial 2+ Left Radial 2+ Right Dorsalis Pedis Doppler Left Dorsalis Pedis Amputated Right Posterior Tibialis Doppler Left Posterior Tibialis Amputated Respiratory Rate 18 Pulse Oximetry (95-100) 99 Oxygen Delivery Nasal Cannula Oxygen Flow Rate (Liters) 2 Blood Pressure 120/66 Blood Pressure Mean (mm Hg) 94 Source Automatic Cuff Neuro Status *Recalled from last Agitation/Confusion documented assessment MEWS Score 2 Rounding Hourly Rounding Checked for Patient Positioning Patient Personal Items Placed Within Reach Checked Patient Pain Level Hourly Rounding Completed Yes Patient Awake Comment Patient lying in bed. Patient states no further needs at this time. Bedrest Yes Turn Q 2HR Yes Patient Position Left Side Specialty Bed In Use Patient turned and adjusted in bed. Equipment in Use Specialty Bed Safety Call Light Within Reach Bed Position Low Bed Exit Alarm Fall Precautions Phone Within Reach Bed Brake On Side Rails Up X2 [place] Coma Scale Eye Opening Spontaneous Motor Obeys Commands Verbal Confused Coma Scale Total 14 Document 04/25/16 02:19 JNV (Rec: 04/25/16 02:20 JNV [id number]) Rounding Hourly Rounding Checked for Patient Positioning Patient Personal Items Placed Within Reach Hourly Rounding Completed Yes Patient Awake Bedrest Yes Turn Q 2HR Yes Patient Position Left Side Specialty Bed In Use patient refused to turn at this time Equipment in Use Specialty Bed Safety Call Light Within Reach Bed Position Low Fall Precautions Phone Within Reach Bed Brake On Side Rails Up X2 Document 04/25/16 03:58 JNV (Rec: 04/25/16 04:03 [id number] [id number]) Vital Signs (Critical Care) Temperature (97.6 F-99.6 F) 98.1 F Temperature Source Oral Pulse Rate 75 Respiratory Rate 20 Pulse Oximetry (95-100) 99 Oxygen Delivery Nasal Cannula Oxygen Flow Rate (Liters) 1 Blood Pressure 122/42 Source Automatic Cuff Weight Assessment Weight 84.5 kg Weight Measurement Method Built in [facility] Rounding Hourly Rounding Checked for Patient Positioning Patient Personal Items Placed Within Reach Hourly Rounding Completed Yes Patient Resting With Eyes Closed Bedrest Yes Turn Q 2HR Yes Patient Position Right Side Equipment in Use Specialty Bed Safety Call Light Within Reach Bed Position Low Fall Precautions Phone Within Reach Bed Brake On Side Rails Up X2 Document 04/25/16 03:57 JCL (Rec: 04/25/16 05:42 JCL [id number]) Rounding Hourly Rounding Checked for Patient Positioning Patient Personal Items Placed Within Reach Checked Patient Pain Level Hourly Rounding Completed Yes Patient Awake Comment Patient awakened for assessment. Bedrest Yes Turn Q 2HR Yes Patient Position Right Side Specialty Bed In Use Patient refused turn. Safety Call Light Within Reach Bed Position Low Bed Exit Alarm Fall Precautions Phone Within Reach Bed Brake On Side Rails Up X2 [place] Coma Scale Eye Opening Spontaneous Motor Obeys Commands Verbal Confused Coma Scale Total 14 Document 04/25/16 06:37 JCL (Rec: 04/25/16 06:39 JCL [id number]) Pain Assessment Pain Present Allowed to Sleep Rounding Hourly Rounding Checked for Patient Positioning Patient Personal Items Placed Within Reach Hourly Rounding Completed Yes Patient Sleeping Comment No signs of destress noted. Bedrest Yes Turn Q 2HR Yes Patient Position Right Side Safety Call Light Within Reach Bed Position Low Bed Exit Alarm Fall Precautions Phone Within Reach Bed Brake On Side Rails Up X2 Document 04/25/16 07:04 [id number] (Rec: 04/25/16 07:10 [id number]) Vital Signs (Critical Care) Temperature (97.6 F-99.6 F) 98.2 F Temperature Source Oral Pulse Rate 78 Respiratory Rate 18 Pulse Oximetry (95-100) 94 L Oxygen Delivery Nasal Cannula Blood Pressure 107/61 Source Automatic Cuff Blood Glucose Assessment Blood Glucose* 114 Action Taken on board/infomed rn Rounding Turn Q 2HR Yes Patient Position Right Side Document 04/25/16 10:35 JOYCE (Rec: 04/25/16 11:59 JOYCE [id number]) Blood Glucose Assessment Hypoglycemia Symptoms None Hyperglycemia Symptoms None Rounding Hourly Rounding Checked for Patient Positioning Patient Helped to Bathroom or Assisted with Bedpan or Urinal Patient Personal Items Placed Within Reach Checked Patient Pain Level Hourly Rounding Completed Yes Patient Awake Comment Patient denies need to use bedpan Bedrest Yes Turn Q 2HR Yes Patient Position Right Side Positioning Aides Pillows Specialty Bed In Use Yes Equipment in Use Heel Suspension Boot Safety Call Light Within Reach Bed Position Low Bed Exit Alarm Fall Precautions Phone Within Reach Bed Brake On Side Rails Up X2 Document 04/25/16 11:34 [id number] (Rec: 04/25/16 11:39 [id number]) Vital Signs (Critical Care) Temperature (97.6 F-99.6 F) 101.5 F H Temperature Source Axillary Pulse Rate 67 Respiratory Rate 16 Pulse Oximetry (95-100) 94 L Oxygen Delivery Nasal Cannula Blood Pressure 109/58 Source Automatic Cuff Blood Glucose Assessment Blood Glucose* 161 Action Taken on board/informed rn Rounding Turn Q 2HR Yes Patient Position Right Side Document 04/25/16 12:15 JOYCE (Rec: 04/25/16 13:39 JOYCE [id number]) Blood Glucose Assessment Hypoglycemia Symptoms None Hyperglycemia Symptoms None Pain Assessment Pain Present Reports No Pain Rounding Bedrest Yes Turn Q 2HR Yes Patient Position Right Side Positioning Aides Pillows Specialty Bed In Use Yes Equipment in Use Heel Suspension Boot Safety Call Light Within Reach Bed Position Low Bed Exit Alarm Fall Precautions Phone Within Reach Bed Brake On Side Rails Up X3 Document 04/25/16 14:30 JOYCE (Rec: 04/25/16 17:50 JOYCE [id number]) Blood Glucose Assessment Hypoglycemia Symptoms None Hyperglycemia Symptoms None Pain Assessment Pain Present Reports No Pain Rounding Hourly Rounding Checked for Patient Positioning Patient Helped to Bathroom or Assisted with Bedpan or Urinal Patient Personal Items Placed Within Reach Checked Patient Pain Level Hourly Rounding Completed Yes Patient Awake Comment Patient denies need to use restroom Bedrest Yes Turn Q 2HR Yes Patient Position Right Side Positioning Aides Pillows Specialty Bed In Use Yes Head of Bed Position (degrees) 30 Equipment in Use Heel Suspension Boot Safety Call Light Within Reach Bed Position Low Bed Exit Alarm Fall Precautions Phone Within Reach Bed Brake On Side Rails Up X3 Document 04/25/16 15:26 KMS (Rec: 04/25/16 19:25 KMS [id number]) Vital Signs (Critical Care) Temperature (97.6 F-99.6 F) 100.1 F H Temperature Source Axillary Pulse Rate 78 Respiratory Rate 20 Pulse Oximetry (95-100) 95 Oxygen Delivery Method Nasal Cannula Oxygen Flow Rate (Liters) 1 Blood Pressure 94/32 Source Automatic Cuff Rounding Hourly Rounding Checked for Patient Positioning Patient Personal Items Placed Within Reach Hourly Rounding Completed Yes Patient Awake Bedrest Yes Turn Q 2HR Yes Patient Position Back Positioning Aides Pillows Specialty Bed In Use Yes Equipment in Use Heel Suspension Boot Specialty Bed Safety Call Light Within Reach Bed Position Low Phone Within Reach Bed Brake On Side Rails Up X3 [place] Coma Scale Eye Opening Spontaneous Motor Obeys Commands Verbal Confused Coma Scale Total 14 Document 04/25/16 16:35 JOYCE (Rec: 04/25/16 18:16 JOYCE [id number]) Blood Glucose Assessment Hypoglycemia Symptoms None Hyperglycemia Symptoms None Pain Assessment Pain Present Reports No Pain Rounding Hourly Rounding Checked for Patient Positioning Patient Helped to Bathroom or Assisted with Bedpan or Urinal Patient Personal Items Placed Within Reach Checked Patient Pain Level Hourly Rounding Completed Yes Patient Awake Comment Patient denies need to use restroom Bedrest Yes Turn Q 2HR Yes Patient Position Back Positioning Aides Pillows Specialty Bed In Use Yes Head of Bed Position (degrees) 30 Equipment in Use Heel Suspension Boot Safety Call Light Within Reach Bed Position Low Bed Exit Alarm Fall Precautions Phone Within Reach Bed Brake On Side Rails Up X3 Document 04/25/16 18:29 JOYCE (Rec: 04/25/16 18:34 JOYCE [id number]) Blood Glucose Assessment Hypoglycemia Symptoms None Hyperglycemia Symptoms None Pain Assessment Pain Present Reports No Pain Rounding Hourly Rounding Checked for Patient Positioning Patient Personal Items Placed Within Reach Checked Patient Pain Level Hourly Rounding Completed Yes Patient Awake Comment Patient denies need to use restroom at this time Bedrest Yes Turn Q 2HR Yes Patient Position Back Positioning Aides Pillows Specialty Bed In Use Yes Head of Bed Position (degrees) 30 Equipment in Use Heel Suspension Boot Safety Call Light Within Reach Bed Position Low Bed Exit Alarm Fall Precautions Phone Within Reach Bed Brake On Side Rails Up X3 Document 04/25/16 19:44 JCL (Rec: 04/25/16 21:21 JCL [id number]) Pain Assessment Pain Present Reports Pain Left Knee Pain Intensity 8 Description Burning Ache Scale Used Numeric (1 - 10) Pain Intervention Medication Comment Patient given IV pain medication per request as ordered. Rounding Hourly Rounding Checked for Patient Positioning Patient Personal Items Placed Within Reach Checked Patient Pain Level Hourly Rounding Completed Yes Patient Awake Comment Patient lying in bed. No signs of destress noted. Oral Care Antiseptic Oral Rinse Lip Moisturizer Gums Brushed Tongue Cleaned Mouth Swabbed Oral Care Assist Total Dependent Bedrest Yes Turn Q 2HR Yes Patient Position Right Side Specialty Bed In Use Patient refused to be turned or repotioned. Safety Call Light Within Reach Bed Position Low Bed Exit Alarm Fall Precautions Phone Within Reach Bed Brake On Side Rails Up X3 ICU Vent/BIPAP/CPAP Oral Care Mouth Swabbed Yes [place] Coma Scale Eye Opening Spontaneous Motor Obeys Commands Verbal Confused Coma Scale Total 14 Left Pupil Reaction Reactive Pupil Size (mm) 2 Pupil [place] Equal Right Pupil Reaction Unreactive Pupil Size (mm) 2 Pupil [place] Equal Document 04/25/16 19:52 JNG (Rec: 04/25/16 20:00 [facility] [id number]) Vital Signs (Critical Care) Temperature (97.6 F-99.6 F) 100.5 F H Temperature Source Oral Pulse Rate 78 Respiratory Rate 20 Pulse Oximetry (95-100) 96 Oxygen Delivery Method Nasal Cannula Oxygen Flow Rate (Liters) 1 Blood Pressure 153/59 Source Automatic Cuff Blood Glucose Assessment Blood Glucose* 182 Rounding Hourly Rounding Checked for Patient Positioning Patient Helped to Bathroom or Assisted with Bedpan or Urinal Patient Personal Items Placed Within Reach Hourly Rounding Completed Yes Patient Awake Comment RN in room. PT denies turning and heel susp. boot. Bedrest Yes Turn Q 2HR Yes Patient Position Back Positioning Aides Pillows Specialty Bed In Use Yes Head of Bed Position (degrees) 30 Safety Call Light Within Reach Bed Position Low Bed Exit Alarm Fall Precautions Phone Within Reach Bed Brake On Side Rails Up X3 Document 04/25/16 21:40 JC (Rec: 04/25/16 21:54 JCL [id number]) Pain Assessment Pain Present Allowed to Sleep Rounding Hourly Rounding Checked for Patient Positioning Patient Personal Items Placed Within Reach Checked Patient Pain Level Hourly Rounding Completed Yes Patient Sleeping Comment Patient resting with eyes closed. No signs of destress noted. Bedrest Yes Turn Q 2HR Yes Patient Position Right Side Safety Call Light Within Reach Bed Position Low Bed Exit Alarm Fall Precautions Phone Within Reach Bed Brake On Side Rails Up X3 Document 04/25/16 21:57 [facility] (Rec: 04/25/16 22:01 [facility] [id number]) Rounding Hourly Rounding Checked for Patient Positioning Patient Helped to Bathroom or Assisted with Bedpan or Urinal Patient Personal Items Placed Within Reach Hourly Rounding Completed Yes Patient Awake Bedrest Yes Turn Q 2HR Yes Patient Position Left Side Positioning Aides Pillows Specialty Bed In Use Yes Equipment in Use Specialty Bed Safety Call Light Within Reach Bed Position Low Bed Exit Alarm Fall Precautions Phone Within Reach Bed Brake On Side Rails Up X3 Document 04/25/16 23:22 JN (Rec: 04/25/16 23:25 [facility] [id number]) Vital Signs (Critical Care) Temperature (97.6 F-99.6 F) 99.4 F Temperature Source Axillary Pulse Rate 68 Respiratory Rate 14 Pulse Oximetry (95-100) 98 Oxygen Delivery Method Nasal Cannula Oxygen Flow Rate (Liters) 1.5 Blood Pressure 156/68 Source Automatic Cuff Rounding Hourly Rounding Checked for Patient Positioning Patient Helped to Bathroom or Assisted with Bedpan or Urinal Patient Personal Items Placed Within Reach Hourly Rounding Completed Yes Patient Awake Bedrest Yes Turn Q 2HR Yes Patient Position Left Side Positioning Aides Pillows Specialty Bed In Use Yes Equipment in Use Specialty Bed Safety Call Light Within Reach Bed Position Low Bed Exit Alarm Fall Precautions Phone Within Reach Bed Brake On Side Rails Up X3 Document 04/25/16 23:45 JCL (Rec: 04/26/16 00:28 JCL [id number]) Pain Assessment Pain Present Reports Pain Left Knee Pain Intensity 10 Description Burning Ache Scale Used Numeric (1 - 10) Pain Intervention Medication Comment Patietn refused to be turned. Rounding Hourly Rounding Checked for Patient Positioning Patient Personal Items Placed Within Reach Checked Patient Pain Level Hourly Rounding Completed Yes Patient Awake Comment Patient in bed complaning of pain. Pain medications given. Bedrest Yes Turn Q 2HR Yes Patient Position Left Side Specialty Bed In Use Patient refuses to be turned. Safety Call Light Within Reach Bed Position Low Bed Exit Alarm Fall Precautions Phone Within Reach Bed Brake On Side Rails Up X3 [place] Coma Scale Eye Opening Spontaneous Motor Obeys Commands Verbal Confused Coma Scale Total 14 Document 04/26/16 03:18 JNG (Rec: 04/26/16 03:23 JNG [id number]) Vital Signs (Critical Care) Temperature (97.6 F-99.6 F) 99.1 F Temperature Source Axillary Pulse Rate 67 Respiratory Rate 20 Pulse Oximetry (95-100) 90 L Oxygen Delivery Method Nasal Cannula Oxygen Flow Rate (Liters) 1.5 Blood Pressure 136/59 Source Automatic Cuff Weight Assessment Weight 85 kg Weight Measurement Method Built in Bedscale Rounding Hourly Rounding Checked for Patient Positioning Patient Helped to Bathroom or Assisted with Bedpan or Urinal Patient Personal Items Placed Within Reach Hourly Rounding Completed Yes Patient Awake Bedrest Yes Turn Q 2HR Yes Patient Position Back Equipment in Use Specialty Bed Safety Call Light Within Reach Bed Position Low Bed Exit Alarm Fall Precautions Phone Within Reach Bed Brake On Side Rails Up X3 Document 04/26/16 03:47 JCL (Rec: 04/26/16 05:02 JCL [id number]) Pain Assessment Pain Present Reports No Pain Rounding Hourly Rounding Checked for Patient Positioning Patient Personal Items Placed Within Reach Checked Patient Pain Level Hourly Rounding Completed Yes Patient Awake Comment Patient awakened for assessment. Bedrest Yes Turn Q 2HR Yes Patient Position Back Safety Call Light Within Reach Bed Position Low Bed Exit Alarm Fall Precautions Phone Within Reach Bed Brake On Side Rails Up X2 [place] Coma Scale Eye Opening Spontaneous Motor Obeys Commands Verbal Confused Coma Scale Total 14 Document 04/26/16 06:22 JC (Rec: 04/26/16 06:24 [id number] Pain Assessment Pain Present Reports Pain Left Knee Pain Intensity 10 Description Burning Ache Scale Used Numeric (1 - 10) Pain Intervention Medication Rounding Hourly Rounding Checked for Patient Positioning Patient Personal Items Placed Within Reach Checked Patient Pain Level Hourly Rounding Completed Yes Patient Awake Comment Patient confused lying in bed screaming. Pain medication given. Bedrest Yes Turn Q 2HR Yes Patient Position Back Safety Call Light Within Reach Bed Position Low Bed Exit Alarm Fall Precautions Phone Within Reach Bed Brake On Side Rails Up X3 Document 04/26/16 10:13 JOYCE (Rec: 04/26/16 13:23 JOYCE [id number]) Blood Glucose Assessment Hypoglycemia Symptoms None Hyperglycemia Symptoms None Pain Assessment Pain Present Reports Pain Rounding Hourly Rounding Checked for Patient Positioning Patient Helped to Bathroom or Assisted with Bedpan or Urinal Patient Personal Items Placed Within Reach Checked Patient Pain Level Hourly Rounding Completed Yes Patient Resting With Eyes Closed Comment Patient denies need to use restroom Bedrest Yes Turn Q 2HR Yes Patient Position Back Positioning Aides Pillows Specialty Bed In Use Yes Head of Bed Position (degrees) 30 Safety Call Light Within Reach Bed Position Low Bed Exit Alarm Fall Precautions Phone Within Reach Bed Brake On Side Rails Up X3 Document 04/26/16 07:10 JOYCE (Rec: 04/26/16 13:53 JOYCE [id number]) Blood Glucose Assessment Hypoglycemia Symptoms None Hyperglycemia Symptoms None Pain Assessment Pain Present Reports No Pain Rounding Hourly Rounding Checked for Patient Positioning Patient Personal Items Placed Within Reach Checked Patient Pain Level Hourly Rounding Completed Yes Patient Sleeping Bedrest Yes Turn Q 2HR Yes Patient Position Back Positioning Aides Pillows Specialty Bed In Use Yes Head of Bed Position (degrees) 30 Safety Call Light Within Reach Bed Position Low Bed Exit Alarm Fall Precautions Phone Within Reach Bed Brake On Side Rails Up X3 Document 04/26/16 07:41 AMG (Rec: 04/26/16 07:42 AMG [id number]) Vital Signs (Critical Care) Temperature (97.6 F-99.6 F) 99 F Temperature Source Oral Pulse Rate 62 Respiratory Rate 20 Pulse Oximetry (95-100) 92 L Oxygen Delivery Method Nasal Cannula Blood Pressure 127/54 Blood Pressure Mean (mm Hg) 75 Blood Glucose Assessment Blood Glucose* 152 Rounding Hourly Rounding Checked for Patient Positioning Patient Personal Items Placed Within Reach Hourly Rounding Completed Yes Patient Sleeping Bedrest Yes Turn Q 2HR Yes Patient Position Back Document 04/26/16 08:33 KMS (Rec: 04/26/16 08:34 KMS [id number]) Vital Signs (Critical Care) Oxygen Delivery Method Nasal Cannula Oxygen Flow Rate (Liters) 1.5 Pain Assessment Pain Present Allowed to Sleep Rounding Hourly Rounding Checked for Patient Positioning Patient Personal Items Placed Within Reach Hourly Rounding Completed Yes Patient Sleeping Comment sleeping peacefully Bedrest Yes Turn Q 2HR Yes Patient Position Back Equipment in Use Specialty Bed Safety Call Light Within Reach Bed Position Low Bed Exit Alarm Fall Precautions Phone Within Reach Bed Brake On Side Rails Up X3 Document 04/26/16 11:23 AMG (Rec: 04/26/16 11:25 AMG [id number]) Vital Signs (Critical Care) Temperature (97.6 F-99.6 F) 98.9 F Temperature Source Axillary Pulse Rate 48 Respiratory Rate 20 Pulse Oximetry (95-100) 99 Oxygen Delivery Method Nasal Cannula Oxygen Flow Rate (Liters) 1 Blood Pressure 113/53 Blood Pressure Mean (mm Hg) 52 Source Automatic Cuff Blood Glucose Assessment Blood Glucose* 168 Rounding Bedrest Yes Turn Q 2HR Yes Patient Position Right Side Safety Call Light Within Reach Bed Position Low Bed Exit Alarm Fall Precautions Phone Within Reach Side Rails Up X2 Document 04/26/16 12:10 JOYCE (Rec: 04/26/16 13:31 JOYCE [id number]) Blood Glucose Assessment Hypoglycemia Symptoms None Hyperglycemia Symptoms None Pain Assessment Pain Present Reports No Pain Rounding Hourly Rounding Checked for Patient Positioning Patient Helped to Bathroom or Assisted with Bedpan or Urinal Patient Personal Items Placed Within Reach Checked Patient Pain Level Hourly Rounding Completed Yes Patient Resting With Eyes Closed Comment patient denies need to use restroom Bedrest Yes Turn Q 2HR Yes Patient Position Right Side Positioning Aides Pillows Specialty Bed In Use Yes Safety Call Light Within Reach Bed Position Low Bed Exit Alarm Fall Precautions Phone Within Reach Bed Brake On Side Rails Up X3 Document 04/26/16 14:59 KMS (Rec: 04/26/16 15:01 KMS [id number]) Vital Signs (Critical Care) Pulse Rate 57 Pulse Oximetry (95-100) 95 Oxygen Delivery Method Nasal Cannula Oxygen Flow Rate (Liters) 1 Pain Assessment Pain Present Reports No Pain Rounding Hourly Rounding Checked for Patient Positioning Patient Personal Items Placed Within Reach Checked Patient Pain Level Hourly Rounding Completed Yes Patient Awake Comment Patient calling out, denies need for pain medication Bedrest Yes Turn Q 2HR Yes Patient Position Back Positioning Aides Pillows Specialty Bed In Use Yes Head of Bed Position (degrees) 45 Equipment in Use Specialty Bed Safety Call Light Within Reach Bed Position Low Bed Exit Alarm Fall Precautions Phone Within Reach Bed Brake On Side Rails Up X3 [place] Coma Scale Eye Opening Spontaneous Motor Obeys Commands Verbal Confused Coma Scale Total 14 Document 04/26/16 16:00 [id number] (Rec: 04/26/16 16:04 [id number]) Vital Signs (Critical Care) Temperature (97.6 F-99.6 F) 99.0 F Temperature Source Axillary Pulse Rate 53 Respiratory Rate 18 Pulse Oximetry (95-100) 98 Oxygen Delivery Method Nasal Cannula Blood Pressure 110/52 Blood Glucose Assessment Blood Glucose* 159 Rounding Hourly Rounding Checked for Patient Positioning Patient Personal Items Placed Within Reach Hourly Rounding Completed Yes Patient Sleeping Turn Q 2HR Yes Patient Position Right Side Document 04/26/16 18:30 JOYCE (Rec: 04/26/16 18:34 JOYCE [id number]) Blood Glucose Assessment Hypoglycemia Symptoms None Hyperglycemia Symptoms None Pain Assessment Pain Present Reports No Pain Rounding Hourly Rounding Checked for Patient Positioning Patient Personal Items Placed Within Reach Checked Patient Pain Level Hourly Rounding Completed Yes Patient Sleeping Bedrest Yes Turn Q 2HR Yes Patient Position Back Positioning Aides Pillows Specialty Bed In Use Yes Safety Call Light Within Reach Bed Position Low Bed Exit Alarm Fall Precautions Phone Within Reach Bed Brake On Side Rails Up X3 Document 04/26/16 19:36 JCL (Rec: 04/26/16 23:24 JCL [id number]) Rounding Hourly Rounding Checked for Patient Positioning Patient Personal Items Placed Within Reach Checked Patient Pain Level Hourly Rounding Completed Yes Patient Awake Comment Patient refused to respond to pain scale. Patient refusing all Medications. Bedrest Yes Turn Q 2HR Yes Patient Position Back Safety Call Light Within Reach Bed Position Low Bed Exit Alarm Fall Precautions Phone Within Reach Bed Brake On Side Rails Up X3 [place] Coma Scale Eye Opening Spontaneous Motor Obeys Commands Verbal Confused Coma Scale Total 14 Left Pupil Reaction Reactive Pupil Size (mm) 2 Pupil [place] Equal Right Pupil Reaction Unreactive Pupil Size (mm) 2 Pupil [place] Equal Document 04/26/16 19:53 ANJ (Rec: 04/26/16 20:00 ANJ [id number]) Vital Signs (Critical Care) Temperature (97.6 F-99.6 F) 98.6 F Temperature Source Oral Pulse Rate 63 Respiratory Rate 17 Pulse Oximetry (95-100) 97 Oxygen Delivery Method Nasal Cannula Oxygen Flow Rate (Liters) 1 Blood Pressure 119/61 Source Automatic Cuff Blood Glucose Assessment Blood Glucose* 144 Action Taken will notify nurse Rounding Hourly Rounding Checked for Patient Positioning Patient Personal Items Placed Within Reach Hourly Rounding Completed Yes Patient Sleeping Bedrest Yes Turn Q 2HR Yes Patient Position Back Specialty Bed In Use Yes Equipment in Use Specialty Bed Safety Call Light Within Reach Bed Position Low Bed Exit Alarm Fall Precautions Phone Within Reach Bed Brake On Side Rails Up X3 Document 04/26/16 21:15 JCL (Rec: 04/26/16 23:26 JCL [id number]) Pain Assessment Pain Present Allowed to Sleep Rounding Hourly Rounding Checked for Patient Positioning Patient Personal Items Placed Within Reach Hourly Rounding Completed Yes Patient Awake Comment Patient resting in bed, ocational yelling out. Bedrest Yes Turn Q 2HR Yes Patient Position Back Safety Call Light Within Reach Bed Position Low Bed Exit Alarm Fall Precautions Phone Within Reach Bed Brake On Side Rails Up X3 Document 04/26/16 22:00 ANJ (Rec: 04/26/16 22:39 ANJ [id number]) Rounding Hourly Rounding Checked for Patient Positioning Patient Personal Items Placed Within Reach Hourly Rounding Completed Yes Patient Sleeping Bedrest Yes Turn Q 2HR Yes Patient Position Back Equipment in Use Specialty Bed Safety Call Light Within Reach Bed Position Low Bed Exit Alarm Fall Precautions Phone Within Reach Bed Brake On Side Rails Up X3 04/26/16 22:38 Nurse Note by Renee Shrestha pt. refused to be turned Initialized on 04/26/16 22:38 - END OF NOTE Document 04/26/16 23:44 JCL (Rec: 04/27/16 01:46 JCL [id number]) Pain Assessment Pain Present Unable to Respond Groin Description of Site Patient unable to state pain. Pt. confused. Patient yelling out and crying. Pain Intervention Medication Comment IV pain medication given. Rounding Hourly Rounding Checked for Patient Positioning Patient Personal Items Placed Within Reach Checked Patient Pain Level Hourly Rounding Completed Yes Patient Awake Comment Patient lying in bed resting with eyes closed at time, yelling out at times Bedrest Yes Turn Q 2HR Yes Patient Position Right Side Specialty Bed In Use Patient turned and adjusted in bed. Safety Call Light Within Reach Bed Position Low Bed Exit Alarm Fall Precautions Phone Within Reach Bed Brake On Side Rails Up X3 [place] Coma Scale Eye Opening Spontaneous Motor Obeys Commands Verbal Confused Coma Scale Total 14 Document 04/26/16 23:47 ANJ (Rec: 04/26/16 23:54 ANJ [id number]) Vital Signs (Critical Care) Temperature (97.6 F-99.6 F) 98.8 F Temperature Source Axillary Pulse Rate 74 Respiratory Rate 16 Pulse Oximetry (95-100) 100 Oxygen Delivery Method Nasal Cannula Oxygen Flow Rate (Liters) 1 Blood Pressure 136/67 Source Automatic Cuff Rounding Hourly Rounding Checked for Patient Positioning Patient Personal Items Placed Within Reach Hourly Rounding Completed Yes Patient Awake Bedrest Yes Turn Q 2HR Yes Patient Position Right Side Positioning Aides Pillows Specialty Bed In Use Yes Equipment in Use Heel Suspension Boot Specialty Bed Safety Call Light Within Reach Bed Position Low Bed Exit Alarm Fall Precautions Phone Within Reach Bed Brake On Side Rails Up X3 Document 04/27/16 01:39 ANJ (Rec: 04/27/16 01:40 ANJ [id number]) Rounding Bedrest Yes Turn Q 2HR Yes Patient Position Right Side Positioning Aides Pillows Specialty Bed In Use Yes Equipment in Use Heel Suspension Boot Specialty Bed Document 04/27/16 03:32 ANJ (Rec: 04/27/16 03:47 ANJ [id number]) Vital Signs (Critical Care) Temperature (97.6 F-99.6 F) 98.6 F Temperature Source Axillary Pulse Rate 68 Respiratory Rate 17 Pulse Oximetry (95-100) 100 Oxygen Delivery Method Nasal Cannula Oxygen Flow Rate (Liters) 0.5 Blood Pressure 146/55 Source Automatic Cuff Weight Assessment Weight 86 kg Weight Measurement Method Built in Bedscale Rounding Hourly Rounding Checked for Patient Positioning Patient Personal Items Placed Within Reach Hourly Rounding Completed Yes Patient Awake Bedrest Yes Turn Q 2HR Yes Patient Position Right Side Positioning Aides Pillows Specialty Bed In Use Yes Equipment in Use Heel Suspension Boot Specialty Bed Safety Call Light Within Reach Bed Position Low Bed Exit Alarm Fall Precautions Phone Within Reach Bed Brake On Side Rails Up X3 04/27/16 03:37 Nurse Note by Renee Shrestha pt. refused to me turned Initialized on 04/27/16 03:37 - END OF NOTE Document 04/27/16 04:16 JCL (Rec: 04/27/16 05:32 JCL [id number]) Pain Assessment Pain Present Reports No Pain Rounding Hourly Rounding Checked for Patient Positioning Patient Personal Items Placed Within Reach Checked Patient Pain Level Hourly Rounding Completed Yes Patient Awake Comment Pt confused. Yelling durring assessment. Resting qutely when alone in room. Bedrest Yes Turn Q 2HR Yes Patient Position Back Specialty Bed In Use Refusing turns. combative if RN attempts to turn. Safety Call Light Within Reach Bed Position Low Bed Exit Alarm Fall Precautions Phone Within Reach Bed Brake On Side Rails Up X3 [place] Coma Scale Eye Opening Spontaneous Motor Obeys Commands Verbal Confused Coma Scale Total 14 Document 04/27/16 06:49 APF (Rec: 04/27/16 07:00 APF [id number]) Vital Signs (Critical Care) Temperature (97.6 F-99.6 F) 97.8 F Temperature Source Oral Pulse Rate 73 Respiratory Rate 18 Pulse Oximetry (95-100) 96 Oxygen Delivery Method Nasal Cannula Oxygen Flow Rate (Liters) 1 Blood Pressure 145/56 Source Automatic Cuff Blood Glucose Assessment Blood Glucose* 119 Rounding Hourly Rounding Checked for Patient Positioning Patient Personal Items Placed Within Reach Hourly Rounding Completed Yes Patient Awake Bedrest Yes Turn Q 2HR Yes Patient Position Back Positioning Aides Pillows Specialty Bed In Use Yes Equipment in Use Specialty Bed Safety Call Light Within Reach Bed Position Low Bed Exit Alarm Fall Precautions Phone Within Reach Bed Brake On Side Rails Up X3 Document 04/27/16 07:45 KMS (Rec: 04/27/16 07:49 KMS [id number]) Vital Signs (Critical Care) Pulse Rate 73 Rhythm Sinus Rhythm First Degree Block Pulse Oximetry (95-100) 93 L Oxygen Delivery Method Nasal Cannula Oxygen Flow Rate (Liters) 1 Pain Assessment Pain Present Reports No Pain Rounding Hourly Rounding Checked for Patient Positioning Patient Personal Items Placed Within Reach Checked Patient Pain Level Hourly Rounding Completed Yes Patient Awake Bedrest Yes Turn Q 2HR Yes Patient Position Right Side Positioning Aides Pillows Specialty Bed In Use Yes Equipment in Use Heel Suspension Boot Specialty Bed Safety Call Light Within Reach Bed Position Low Bed Exit Alarm Fall Precautions Bed Brake On Side Rails Up X3 [place] Coma Scale Eye Opening Spontaneous Motor Obeys Commands Verbal Confused Coma Scale Total 14 Left Pupil Reaction Brisk Pupil Size (mm) 3 Pupil [place] Equal Right Pupil Reaction Brisk Pupil Size (mm) 3 Pupil [place] Equal Document 04/27/16 07:45 KMS (Rec: 04/27/16 20:41 KMS [id number]) Rounding Turn Q 2HR No Patient Position Right Side Equipment in Use Heel Suspension Boot Specialty Bed Document 04/27/16 10:27 KMS (Rec: 04/27/16 10:28 KMS [id number]) Vital Signs (Critical Care) Pulse Rate 66 Rhythm Sinus Rhythm First Degree Block Pulse Oximetry (95-100) 100 Oxygen Delivery Method Nasal Cannula Oxygen Flow Rate (Liters) 1 Pain Assessment Pain Present Reports No Pain Rounding Hourly Rounding Checked for Patient Positioning Patient Personal Items Placed Within Reach Checked Patient Pain Level Hourly Rounding Completed Yes Patient Awake Bedrest Yes Turn Q 2HR Yes Patient Position Back Positioning Aides Pillows Specialty Bed In Use Yes Equipment in Use Heel Suspension Boot Specialty Bed Safety Call Light Within Reach Bed Position Low Bed Exit Alarm Fall Precautions Phone Within Reach Bed Brake On Side Rails Up X3 [place] Coma Scale Eye Opening Spontaneous Motor Obeys Commands Verbal Confused Coma Scale Total 14 Document 04/27/16 11:20 MAB (Rec: 04/27/16 11:21 MAB [id number]) Blood Glucose Assessment Blood Glucose* 123 Rounding Turn Q 2HR Yes Patient Position Back Positioning Aides Pillows Document 04/27/16 12:08 KMS (Rec: 04/27/16 12:13 KMS [id number]) Vital Signs (Critical Care) Temperature (97.6 F-99.6 F) 97.5 F L Temperature Source Oral Pulse Rate 55 Rhythm Sinus Rhythm Sinus Bradycardia First Degree Block Respiratory Rate 16 Pulse Oximetry (95-100) 100 Oxygen Delivery Method Nasal Cannula Oxygen Flow Rate (Liters) 1 Blood Pressure 99/53 Source Automatic Cuff Pain Assessment Pain Present Reports Pain Rounding Hourly Rounding Checked for Patient Positioning Patient Personal Items Placed Within Reach Checked Patient Pain Level Hourly Rounding Completed Yes Patient Awake Bedrest Yes Turn Q 2HR Yes Patient Position Right Side Positioning Aides Pillows Specialty Bed In Use Yes Equipment in Use Heel Suspension Boot Specialty Bed Safety Call Light Within Reach Bed Position Low Fall Precautions Phone Within Reach Bed Brake On Side Rails Up X3 [place] Coma Scale Eye Opening Spontaneous Motor Obeys Commands Verbal Confused Coma Scale Total 14 Left Pupil Reaction Brisk Pupil Size (mm) 3 Pupil [place] Equal Right Pupil Reaction Brisk Pupil Size (mm) 3 Pupil [place] Equal Document 04/27/16 14:29 KMS (Rec: 04/27/16 14:30 KMS [id number]) Rounding Hourly Rounding Checked for Patient Positioning Patient Personal Items Placed Within Reach Checked Patient Pain Level Hourly Rounding Completed Yes Patient Out of Room Comment Patient is in dialysis at this time Turn Q 2HR Yes Patient Position Back Document 04/27/16 15:44 APF (Rec: 04/27/16 15:45 APF [id number]) Rounding Hourly Rounding Completed Yes Patient Out of Room Comment patient is out of room for testing Document 04/27/16 17:05 KMS (Rec: 04/27/16 17:10 KMS [id number]) Vital Signs (Critical Care) Temperature (97.6 F-99.6 F) 97.5 F L Temperature Source Axillary Pulse Rate 74 Respiratory Rate 18 Pulse Oximetry (95-100) 94 L Oxygen Delivery Method Room Air Blood Pressure 108/66 Source Automatic Cuff Blood Glucose Assessment Blood Glucose* 100 Pain Assessment Pain Present Reports No Pain Rounding Hourly Rounding Checked for Patient Positioning Patient Personal Items Placed Within Reach Checked Patient Pain Level Hourly Rounding Completed Yes Patient Awake Comment set up for dinner upon return from dialysis Bedrest Yes Turn Q 2HR Yes Patient Position Back Equipment in Use Heel Suspension Boot Specialty Bed Safety Call Light Within Reach Bed Position Low Fall Precautions Phone Within Reach Bed Brake On Side Rails Up X3 [place] Coma Scale Eye Opening Spontaneous Motor Obeys Commands Verbal Confused Coma Scale Total 14 Left Pupil Reaction Brisk Pupil Size (mm) 3 Pupil [place] Equal Right Pupil Reaction Brisk Pupil Size (mm) 3 Pupil [place] Equal Document 04/27/16 19:45 KORIN (Rec: 04/27/16 21:14 Tiffany [id number]) Blood Glucose Assessment Hypoglycemia Symptoms None Pain Assessment Pain Present Reports Pain Groin Pain Intensity 0 Scale Used Numeric (1 - 10) Left Knee Pain Intensity 10 Description Phantom Scale Used Numeric (1 - 10) Description of Site bandage present to left aka stump Pain Intervention Position Distraction Reduced Environmental Stimuli Darkened Room Posterior Pain Intensity 8 Description Ache With Movement Scale Used Numeric (1 - 10) Pain Intervention Position Distraction Reduced Environmental Stimuli Darkened Room Bilateral Heels Pain Intensity 10 Description Phantom Scale Used Numeric (1 - 10) Left Upper Arm Pain Intensity 0 Head Pain Intensity 0 Rounding Hourly Rounding Checked for Patient Positioning Patient Personal Items Placed Within Reach Checked Patient Pain Level Hourly Rounding Completed Yes Patient Awake Bedrest Yes Turn Q 2HR Yes Patient Position Right Side Positioning Aides Pillows Specialty Bed In Use Yes Equipment in Use Specialty Bed Safety Call Light Within Reach Bed Position Low Fall Precautions Phone Within Reach Bed Brake On Side Rails Up X3 ICU Vent/BIPAP/CPAP Oral Care FIO2 Vent/BIPAP/CPAP (%) 21 HOB Degrees 35 Mouth Swabbed Yes [place] Coma Scale Eye Opening Spontaneous Motor Obeys Commands Verbal Confused Coma Scale Total 14 Left Pupil Reaction Brisk Pupil Size (mm) 3 Pupil [place] Equal Right Pupil Reaction Brisk Pupil Size (mm) 3 Pupil [place] Equal Document 04/27/16 21:08 ALYCE (Rec: 04/27/16 21:15 [facility] [id number]) Vital Signs (Critical Care) Temperature (97.6 F-99.6 F) 97.8 F Temperature Source Axillary Pulse Rate 74 Respiratory Rate 16 Pulse Oximetry (95-100) 98 Oxygen Delivery Method Room Air Oxygen Flow Rate (Liters) 0 Blood Pressure 124/81 Source Automatic Cuff Blood Glucose Assessment Blood Glucose* 102 Rounding Hourly Rounding Checked for Patient Positioning Patient Helped to Bathroom or Assisted with Bedpan or Urinal Patient Personal Items Placed Within Reach Hourly Rounding Completed Yes Patient Awake Comment pt. refused turning. Bedrest Yes Turn Q 2HR Yes Patient Position Right Side Specialty Bed In Use Yes Head of Bed Position (degrees) 45 Equipment in Use Heel Suspension Boot Specialty Bed Safety Call Light Within Reach Bed Position Low Bed Exit Alarm Fall Precautions Phone Within Reach Bed Brake On Side Rails Up X3 Document 04/27/16 22:09 LY (Rec: 04/27/16 22:11 LY [id number]) Rounding Hourly Rounding Checked for Patient Positioning Patient Helped to Bathroom or Assisted with Bedpan or Urinal Patient Personal Items Placed Within Reach Hourly Rounding Completed Yes Patient Awake Comment pt. allowed to rest. Bedrest Yes Turn Q 2HR Yes Patient Position Right Side Specialty Bed In Use Yes Head of Bed Position (degrees) 45 Equipment in Use Heel Suspension Boot Specialty Bed Safety Call Light Within Reach Bed Position Low Bed Exit Alarm Fall Precautions Phone Within Reach Bed Brake On Side Rails Up X3 Document 04/28/16 00:10 KORIN (Rec: 04/28/16 02:31 KORIN [id number]) Blood Glucose Assessment Hypoglycemia Symptoms None Pain Assessment Pain Present Reports Pain Left Knee Pain Intensity 10 Description Phantom Scale Used Numeric (1 - 10) Pain Intervention Provider Notified Position Distraction Reduced Environmental Stimuli Darkened Room Rounding Hourly Rounding Checked for Patient Positioning Patient Personal Items Placed Within Reach Checked Patient Pain Level Hourly Rounding Completed Yes Patient Awake Bedrest Yes Turn Q 2HR Yes Patient Position Left Side Specialty Bed In Use Yes Head of Bed Position (degrees) 35 Equipment in Use Heel Suspension Boot Specialty Bed Safety Call Light Within Reach Bed Position Low Bed Exit Alarm Fall Precautions Phone Within Reach Bed Brake On Side Rails Up X3 ICU Vent/BIPAP/CPAP Oral Care HOB Degrees 35 Mouth Swabbed Yes [place] Coma Scale Eye Opening Spontaneous Motor Obeys Commands Verbal Confused Coma Scale Total 14 Left Pupil Reaction Brisk Pupil Size (mm) 3 Pupil [place] Equal Right Pupil Reaction Brisk Pupil Size (mm) 3 Pupil [place] Equal Document 04/28/16 00:39 LY (Rec: 04/28/16 00:43 LY [id number]) Vital Signs (Critical Care) Temperature (97.6 F-99.6 F) 98.0 F Temperature Source Axillary Pulse Rate 63 Respiratory Rate 18 Pulse Oximetry (95-100) 100 Oxygen Delivery Method Room Air Oxygen Flow Rate (Liters) 0 Blood Pressure 115/44 Source Automatic Cuff Rounding Hourly Rounding Checked for Patient Positioning Patient Helped to Bathroom or Assisted with Bedpan or Urinal Patient Personal Items Placed Within Reach Hourly Rounding Completed Yes Patient Awake Bedrest Yes Turn Q 2HR Yes Patient Position Left Side Specialty Bed In Use Yes Head of Bed Position (degrees) 45 Equipment in Use Heel Suspension Boot Specialty Bed Safety Call Light Within Reach Bed Position Low Bed Exit Alarm Fall Precautions Phone Within Reach Bed Brake On Side Rails Up X3 Document 04/28/16 02:22 JNG (Rec: 04/28/16 02:23 JNG [id number]) Rounding Hourly Rounding Checked for Patient Positioning Patient Helped to Bathroom or Assisted with Bedpan or Urinal Patient Personal Items Placed Within Reach Hourly Rounding Completed Yes Patient Resting With Eyes Closed Bedrest Yes Turn Q 2HR Yes Patient Position Left Side Specialty Bed In Use Yes Equipment in Use Heel Suspension Boot Specialty Bed Safety Call Light Within Reach Bed Position Low Bed Exit Alarm Fall Precautions Phone Within Reach Bed Brake On Side Rails Up X3 Document 04/28/16 05:11 JNG (Rec: 04/28/16 05:19 JNG [id number]) Vital Signs (Critical Care) Temperature (97.6 F-99.6 F) 97.4 F L Temperature Source Oral Pulse Rate 79 Respiratory Rate 20 Pulse Oximetry (95-100) 91 L Oxygen Delivery Method Room Air Oxygen Flow Rate (Liters) 0 Blood Pressure 139/64 Source Automatic Cuff Weight Assessment Weight 85.4 kg Weight Measurement Method Built in Bedscale Rounding Hourly Rounding Checked for Patient Positioning Patient Helped to Bathroom or Assisted with Bedpan or Urinal Patient Personal Items Placed Within Reach Hourly Rounding Completed Yes Patient Awake Oral Care Oral Cavity Moisturizer Lip Moisturizer Mouth Swabbed Bedrest Yes Turn Q 2HR Yes Patient Position Back Specialty Bed In Use Yes Equipment in Use Heel Suspension Boot Specialty Bed Safety Call Light Within Reach Bed Position Low Bed Exit Alarm Fall Precautions Phone Within Reach Bed Brake On Side Rails Up X3 Document 04/28/16 07:35 APF (Rec: 04/28/16 07:50 APF [id number]) Vital Signs (Critical Care) Temperature (97.6 F-99.6 F) 97.9 F Temperature Source Oral Pulse Rate 64 Respiratory Rate 20 Pulse Oximetry (95-100) 90 L Oxygen Delivery Method Room Air Blood Pressure 129/66 Source Automatic Cuff Blood Glucose Assessment Blood Glucose* 91 Rounding Hourly Rounding Checked for Patient Positioning Patient Personal Items Placed Within Reach Hourly Rounding Completed Yes Patient Sleeping Bedrest Yes Turn Q 2HR Yes Patient Position Left Side Specialty Bed In Use Yes Equipment in Use Heel Suspension Boot Specialty Bed Safety Call Light Within Reach Bed Position Low Bed Exit Alarm Fall Precautions Phone Within Reach Bed Brake On Side Rails Up X3 Document 04/28/16 08:00 JNG(2) (Rec: 04/28/16 08:58 JNG(2) [id number]) Pain Assessment Pain Present Reports No Pain Rounding Hourly Rounding Checked for Patient Positioning Patient Personal Items Placed Within Reach Checked Patient Pain Level Hourly Rounding Completed Yes Patient Awake Bedrest Yes Turn Q 2HR Yes Patient Position Back Head of Bed Position (degrees) 30 Equipment in Use Specialty Bed Heelbows Safety Call Light Within Reach Bed Position Low Bed Exit Alarm Fall Precautions Phone Within Reach Bed Brake On Side Rails Up X3 [place] Coma Scale Eye Opening Spontaneous Motor Localizes to Pain Verbal Confused Coma Scale Total 13 Left Pupil Reaction Brisk Pupil Size (mm) 3 Pupil [place] Equal Right Pupil Reaction Brisk Pupil Size (mm) 3 Pupil [place] Equal Document 04/28/16 09:35 APF (Rec: 04/28/16 11:45 APF [id number]) Rounding Patient Out of Room Comment Away for dialysis Document 04/28/16 11:46 APF (Rec: 04/28/16 11:46 APF [id number]) Rounding Patient Out of Room Comment Away for dialysis Document 04/28/16 12:03 JNG(2) (Rec: 04/28/16 12:06 JNG(2) [id number]) Rounding Hourly Rounding Checked for Patient Positioning Patient Personal Items Placed Within Reach Checked Patient Pain Level Hourly Rounding Completed Yes Patient Resting With Eyes Closed Bedrest Yes Turn Q 2HR Yes Patient Position Back Head of Bed Position (degrees) 30 Equipment in Use Specialty Bed Safety Call Light Within Reach Bed Position Low Bed Exit Alarm Fall Precautions Phone Within Reach Bed Brake On Side Rails Up X3 [place] Coma Scale Eye Opening Spontaneous Motor Obeys Commands Verbal Confused Coma Scale Total 14 Left Pupil Reaction Brisk Pupil Size (mm) 3 Pupil [place] Equal Right Pupil Reaction Brisk Pupil Size (mm) 3 Pupil [place] Equal Document 04/28/16 12:35 JNG(2) (Rec: 04/28/16 12:36 JNG(2) [id number]) Vital Signs (Critical Care) Temperature (97.6 F-99.6 F) 97.4 F L Temperature Source Axillary Pulse Rate 84 Respiratory Rate 18 Pulse Oximetry (95-100) 93 L Oxygen Delivery Method Room Air Blood Pressure 122/54 Neuro Status *Recalled from last Agitation/Confusion documented assessment MEWS Score 2 Blood Glucose Assessment Blood Glucose* 104 Pain Assessment Pain Present Reports No Pain Rounding Hourly Rounding Checked for Patient Positioning Patient Personal Items Placed Within Reach Checked Patient Pain Level Hourly Rounding Completed Yes Patient Awake Bedrest Yes Turn Q 2HR Yes Patient Position Left Side Positioning Aides Pillows Head of Bed Position (degrees) 30 Equipment in Use Specialty Bed Safety Call Light Within Reach Bed Position Low Bed Exit Alarm Fall Precautions Phone Within Reach Bed Brake On Side Rails Up X2 Document 04/28/16 14:00 JNG(2) (Rec: 04/28/16 15:00 JNG(2) [id number]) Pain Assessment Pain Present Reports No Pain Rounding Hourly Rounding Checked for Patient Positioning Patient Personal Items Placed Within Reach Checked Patient Pain Level Hourly Rounding Completed Yes Patient Awake Bedrest Yes Turn Q 2HR Yes Patient Position Back Head of Bed Position (degrees) 30 Equipment in Use Specialty Bed Safety Call Light Within Reach Bed Position Low Bed Exit Alarm Fall Precautions Phone Within Reach Bed Brake On Side Rails Up X3 Document 04/28/16 15:53 JNG(2) (Rec: 04/28/16 15:57 JNG(2) [id number]) Pain Assessment Pain Present Reports No Pain Rounding Hourly Rounding Checked for Patient Positioning Patient Personal Items Placed Within Reach Checked Patient Pain Level Hourly Rounding Completed Yes Patient Resting With Eyes Closed Bedrest Yes Turn Q 2HR Yes Patient Position Back Head of Bed Position (degrees) 30 Equipment in Use Specialty Bed Safety Call Light Within Reach Bed Position Low Bed Exit Alarm Fall Precautions Phone Within Reach Bed Brake On Side Rails Up X2 [place] Coma Scale Eye Opening Spontaneous Motor Obeys Commands Verbal Confused Coma Scale Total 14 Left Pupil Reaction Brisk Pupil Size (mm) 3 Pupil [place] Equal Right Pupil Reaction Brisk Pupil Size (mm) 3 Pupil [place] Equal Document 04/28/16 16:51 APF (Rec: 04/28/16 17:00 APF [id number]) Vital Signs (Critical Care) Temperature (97.6 F-99.6 F) 98.1 F Temperature Source Axillary Pulse Rate 81 Respiratory Rate 18 Pulse Oximetry (95-100) 94 L Oxygen Delivery Method Room Air Blood Pressure 129/56 Source Automatic Cuff Blood Glucose Assessment Blood Glucose* 80 Rounding Hourly Rounding Checked for Patient Positioning Patient Personal Items Placed Within Reach Hourly Rounding Completed Yes Patient Sleeping Bedrest Yes Turn Q 2HR Yes Patient Position Left Side Positioning Aides Pillows Equipment in Use Specialty Bed Safety Call Light Within Reach Bed Position Low Bed Exit Alarm Fall Precautions Phone Within Reach Bed Brake On Side Rails Up X3 Document 04/28/16 18:00 JNG(2) (Rec: 04/28/16 18:05 JNG(2) [id number]) Pain Assessment Pain Present Reports No Pain Rounding Hourly Rounding Checked for Patient Positioning Patient Personal Items Placed Within Reach Checked Patient Pain Level Hourly Rounding Completed Yes Patient Sleeping Bedrest Yes Turn Q 2HR Yes Patient Position Left Side Positioning Aides Pillows Head of Bed Position (degrees) 30 Equipment in Use Specialty Bed Safety Call Light Within Reach Bed Position Low Fall Precautions Phone Within Reach Bed Brake On Side Rails Up X2 Document 04/28/16 19:57 JKB (Rec: 04/28/16 20:22 JKB [id number]) Vital Signs (Critical Care) Temperature (97.6 F-99.6 F) 98.0 F Temperature Source Axillary Pulse Rate 77 Rhythm Sinus Rhythm First Degree Block Respiratory Rate 20 Pulse Oximetry (95-100) 96 Oxygen Delivery Method Room Air Blood Pressure 136/65 Source Automatic Cuff Pain Assessment Pain Present Reports Pain Groin Pain Intensity 0 Left Knee Pain Intensity 10 Description Phantom Scale Used Numeric (1 - 10) Pain Intervention Medication Position Distraction Reduced Environmental Stimuli Darkened Room Posterior Pain Intensity 10 Description Burning Ache Scale Used Numeric (1 - 10) Pain Intervention Medication Position Distraction Reduced Environmental Stimuli Darkened Room Bilateral Heels Pain Intensity 0 Rounding Hourly Rounding Checked for Patient Positioning Patient Personal Items Placed Within Reach Checked Patient Pain Level Hourly Rounding Completed Yes Patient Awake Bedrest Yes Turn Q 2HR Yes Patient Position Back Positioning Aides Pillows Head of Bed Position (degrees) 40 Equipment in Use Specialty Bed Safety Call Light Within Reach Bed Position Low Bed Exit Alarm Fall Precautions Phone Within Reach Bed Brake On Side Rails Up X3 [place] Coma Scale Eye Opening Spontaneous Motor Obeys Commands Verbal Confused Coma Scale Total 14 Left Pupil Reaction Brisk Pupil Size (mm) 3 Pupil [place] Equal Right Pupil Reaction Brisk Pupil Size (mm) 3 Pupil [place] Equal Document 04/28/16 20:33 JNV (Rec: 04/28/16 20:34 JNV [id number]) Blood Glucose Assessment Blood Glucose* 81 Rounding Hourly Rounding Checked for Patient Positioning Patient Personal Items Placed Within Reach Hourly Rounding Completed Yes Patient Awake Bedrest Yes Turn Q 2HR Yes Patient Position Back Positioning Aides Pillows Equipment in Use Specialty Bed Safety Call Light Within Reach Bed Position Low Fall Precautions Phone Within Reach Bed Brake On Side Rails Up X3 Document 04/28/16 22:00 JNV (Rec: 04/28/16 22:02 JNV [id number]) Rounding Hourly Rounding Checked for Patient Positioning Patient Personal Items Placed Within Reach Hourly Rounding Completed Yes Patient Awake Comment patient refused to be turned Bedrest Yes Turn Q 2HR Yes Patient Position Back Positioning Aides Pillows Equipment in Use Specialty Bed Safety Call Light Within Reach Bed Position Low Fall Precautions Phone Within Reach Bed Brake On Side Rails Up X2 Document 04/29/16 01:16 JNV (Rec: 04/29/16 01:19 JNV [id number]) Vital Signs (Critical Care) Temperature (97.6 F-99.6 F) 98.0 F Temperature Source Axillary Pulse Rate 93 Respiratory Rate 20 Pulse Oximetry (95-100) 91 L Oxygen Delivery Method Room Air Blood Pressure 130/58 Source Automatic Cuff Rounding Hourly Rounding Checked for Patient Positioning Patient Personal Items Placed Within Reach Hourly Rounding Completed Yes Patient Awake Comment patient refused to turn Bedrest Yes Turn Q 2HR Yes Patient Position Sitting up in Bed Positioning Aides Pillows Equipment in Use Specialty Bed Safety Call Light Within Reach Bed Position Low Fall Precautions Phone Within Reach Bed Brake On Side Rails Up X2 Document 04/29/16 04:31 JDC (Rec: 04/29/16 04:36 JDC [id number]) Vital Signs (Critical Care) Temperature (97.6 F-99.6 F) 97.5 F L Temperature Source Axillary Pulse Rate 89 Respiratory Rate 16 Pulse Oximetry (95-100) 91 L Oxygen Delivery Method Nasal Cannula Oxygen Flow Rate (Liters) 2.5 Blood Pressure 130/58 Source Automatic Cuff Weight Assessment Weight 84.5 kg Weight Measurement Method Built in Bedscale Rounding Hourly Rounding Checked for Patient Positioning Patient Personal Items Placed Within Reach Hourly Rounding Completed Yes Patient Awake Comment Pt refusing turns. Bedrest Yes Turn Q 2HR Yes Patient Position Sitting up in Bed Positioning Aides Pillows Head of Bed Position (degrees) 35 Equipment in Use Heel Suspension Boot Specialty Bed Safety Call Light Within Reach Bed Position Low Fall Precautions Phone Within Reach Bed Brake On Side Rails Up X3 Document 04/29/16 06:56 MAB (Rec: 04/29/16 07:14 MAB [id number]) Vital Signs (Critical Care) Temperature (97.6 F-99.6 F) 97.7 F Temperature Source Oral Pulse Rate 88 Respiratory Rate 15 Pulse Oximetry (95-100) 97 Oxygen Delivery Method Nasal Cannula Oxygen Flow Rate (Liters) 2.5 Blood Pressure 126/55 Source Automatic Cuff Blood Glucose Assessment Blood Glucose* 106 Rounding Turn Q 2HR Yes Patient Position Sitting up in Bed Positioning Aides Pillows Document 04/29/16 07:00 JNG(2) (Rec: 04/29/16 08:59 JNG(2) [id number]) Rounding Hourly Rounding Checked for Patient Positioning Patient Personal Items Placed Within Reach Checked Patient Pain Level Hourly Rounding Completed Yes Patient Awake Bedrest Yes Turn Q 2HR Yes Patient Position Right Side Positioning Aides Pillows Head of Bed Position (degrees) 45 Equipment in Use Specialty Bed Safety Call Light Within Reach Bed Position Low Bed Exit Alarm Fall Precautions Phone Within Reach Bed Brake On Side Rails Up X3 [place] Coma Scale Eye Opening Spontaneous Motor Obeys Commands Verbal Confused Coma Scale Total 14 Left Pupil Reaction Brisk Pupil Size (mm) 3 Pupil [place] Equal Right Pupil Reaction Brisk Pupil Size (mm) 3 Pupil [place] Equal Document 04/29/16 09:00 JNG(2) (Rec: 04/29/16 09:48 JNG(2) [id number]) Pain Assessment Pain Present Reports No Pain Rounding Hourly Rounding Checked for Patient Positioning Patient Personal Items Placed Within Reach Checked Patient Pain Level Hourly Rounding Completed Yes Patient Awake Bedrest Yes Turn Q 2HR Yes Patient Position Back Head of Bed Position (degrees) 30 Equipment in Use Specialty Bed Safety Call Light Within Reach Bed Position Low Bed Exit Alarm Fall Precautions Phone Within Reach Bed Brake On Side Rails Up X3 Document 04/29/16 11:00 MAB (Rec: 04/29/16 11:24 MAB [id number]) Vital Signs (Critical Care) Temperature (97.6 F-99.6 F) 98.4 F Temperature Source Oral Pulse Rate 87 Respiratory Rate 16 Pulse Oximetry (95-100) 95 Oxygen Delivery Method Nasal Cannula Oxygen Flow Rate (Liters) 2.5 Blood Pressure 136/51 Source Automatic Cuff Blood Glucose Assessment Blood Glucose* 103 Rounding Turn Q 2HR Yes Patient Position Back Document 04/29/16 11:00 JNG(2) (Rec: 04/29/16 12:40 JNG(2) [id number]) Rounding Hourly Rounding Checked for Patient Positioning Patient Personal Items Placed Within Reach Checked Patient Pain Level Hourly Rounding Completed Yes Patient Resting With Eyes Closed Bedrest Yes Turn Q 2HR Yes Patient Position Left Side Positioning Aides Pillows Head of Bed Position (degrees) 30 Equipment in Use Specialty Bed Safety Call Light Within Reach Bed Position Low Bed Exit Alarm Fall Precautions Phone Within Reach Bed Brake On Side Rails Up X3 [place] Coma Scale Eye Opening Spontaneous Motor Obeys Commands Verbal Confused Coma Scale Total 14 Left Pupil Reaction Brisk Pupil Size (mm) 3 Pupil [place] Equal Right Pupil Reaction Brisk Pupil Size (mm) 3 Pupil [place] Equal Document 04/29/16 13:00 JNG(2) (Rec: 04/29/16 14:14 JNG(2) [id number]) Pain Assessment Pain Present Reports No Pain Rounding Hourly Rounding Checked for Patient Positioning Patient Personal Items Placed Within Reach Checked Patient Pain Level Hourly Rounding Completed Yes Patient Resting With Eyes Closed Bedrest Yes Turn Q 2HR Yes Patient Position Back Positioning Aides Pillows Head of Bed Position (degrees) 30 Equipment in Use Specialty Bed Safety Call Light Within Reach Bed Position Low Bed Exit Alarm Fall Precautions Phone Within Reach Bed Brake On Side Rails Up X3 Critical Value Reporting Start: 04/19/16 23: 58 Freq: .PRN Status: Discharge Document 04/20/16 07:58 KORIN (Rec: 04/20/16 08:17 KORIN [id number]) Critical Values Reporting Test(s) and Results PTT 245.6 AFTER REPEAT Time Results Received 03:06 Lab Results Repeated Back Yes Provider Notified Yes Time Provider Contacted 03:[address] MCKENNA Time Provider Responded 03:40 Number of Attempts to Reach Provider 1 New Orders Received Yes: CT HEAD Document 04/20/16 08:16 KORIN (Rec: 04/20/16 08:17 KORIN [id number]) Critical Values Reporting Test(s) and Results TROPONIN 2.24 Time Results Received 02:21 Lab Results Repeated Back Yes Provider Notified Yes Time Provider Contacted 03:[address] MCKENNA Time Provider Responded 03:40 Number of Attempts to Reach Provider 1 New Orders Received Yes Document 04/20/16 10:35 [id number] (Rec: 04/20/16 12:42 [id number]) Critical Values Reporting Test(s) and Results Trop-1.20 Time Results Received 10:35 Lab Results Repeated Back Yes: Cecilia Provider Notified Yes Time Provider Contacted 11:[address] Quintero Time Provider Responded 11:19 Number of Attempts to Reach Provider 1 New Orders Received No Document 04/25/16 05:15 WKB (Rec: 04/25/16 05:16 WKB [id number]) Critical Values Reporting Test(s) and Results PT 52, INR 4.6 Time Results Received 05:15 Lab Results Repeated Back Yes Provider Notified notified primary RN Denis Document 04/25/16 05:47 JCL (Rec: 04/25/16 05:48 JCL [id number]) Critical Values Reporting Test(s) and Results PT 52, INR 4.6 Time Results Received 05:15 Lab Results Repeated Back Yes Provider Notified Yes Time Provider Contacted 05:[address] Reveles Time Provider Responded 05:30 Number of Attempts to Reach Provider 1 New Orders Received Yes Document 04/25/16 12:30 JOYCE (Rec: 04/25/16 12:34 JOYCE [id number]) Critical Values Reporting Test(s) and Results INR Time Results Received 12:31 Lab Results Repeated Back Yes Provider Notified Yes Time Provider Contacted 12:31 Provider Name Yamil Time Provider Responded 12:31 Number of Attempts to Reach Provider 1 New Orders Received Yes: liver function labs, vitamin K 2.5mg sub-Q Document 04/26/16 04:50 JCL (Rec: 04/26/16 05:03 JCL [id number]) Critical Values Reporting Test(s) and Results PT 48.8 Time Results Received 04:28 Lab Results Repeated Back Yes Provider Notified Yes Time Provider Contacted 04:[address] Mckenna Time Provider Responded 04:55 Number of Attempts to Reach Provider 1 New Orders Received No Spectroscopist Nutrition Assessment Start: 04/28/16 14: 50 Freq: Status: Discharge Document 04/28/16 14:56 LA (Rec: 04/28/16 15:03 LA [email or web address]) Nutritional Assessment - Spectroscopist Subjective Data: 75 YOF admit with NSTEMI and acute on chronic renal failure started on HD. Pt with multiple comorbidities including AMS, DM, AKA. [place]. She is not oriented, she has been refusing all foods, has intakes of 0% for 7 days now, poor foot wound healing, edema , and muscle wasting noted. Unsure of skilled nursing plan, I think she is appropriate for palliative. Meds: lasix, abx, synthyroid, SSI ACHS, Culturelle Labs: Cr-2.55, GFR-22, Gluc- 104, Albumin-1.6 [place] Body Weight 115 Weight During Past 3 Months Has Decreased Amount of Weight Increase/Decrease 20# x 1 mon? some must be d/t During Past 3 Months fluid Weight Change Unintentional Comment Ht: 5'3" Wt: 188# Diet ADA Adequate Intake Prior to Admission No Change in Appetite Eating Less Than Usual Feeding Ability Total Assistance Activity Level Sedentary Skin Problem Amputation Calories Needed to Maintain Weight 1568 kcal/day (30kcal/kg IBW) Estimated Protein Needs 94g/day (1.8g/kg IBW) Estimated Fluid Needs 1500 ml/day Initial assessment face to face time Severe protein calorie with patient (mins) malnutrition Nutrition Problem PES Statement related to inadequate caloric intake/ AMS as evidenced by edema, severe muscle wasting, with inadequate nutrition for > 7 days Nutrition Intervention: Meals and Snacks Coordination of Care Comment 1. Continue ADA diet, at this point supplements aren't going to help because the patient is so alerted that she is refusing everything. 2. Depending on the code status and goals of care, I would recommend a temp NGT for nutrition at this time. The patient will not heal nor suceed at maintaining protein stores with dialysis with no PO nutrition. Nutrition Monitoring: Energy Intake Electrolyte and Renal Profile Protein Profile Glucose Profile Comment f/u 04/29- check on plan of care 04/28/16 15:02 Nutrition Note by Jana Vega 1. Continue ADA diet, at this point supplements aren't going to help because the patient is so alerted that she is refusing everything. 2. Depending on the code status and goals of care, I would recommend a temp NGT for nutrition at this time. The patient will not heal nor suceed at maintaining protein stores with dialysis with no PO nutrition. NO PO INTAKE X 7 DAYS Initialized on 04/28/16 15:02 - END OF NOTE Document 04/29/16 13:15 MJH (Rec: 04/29/16 13:27 MJH [id number]) Nutritional Assessment - Spectroscopist Subjective Data: f/u: Palliative care on board. SW working with family; stated he wants pt to be comfortable. Visited pt twice and she was unable to wake up today. Nephro feels pt would not be a good candidate for Chronic HD. Palliative discussing options about hospice. Per chart review, pt has be declining nutritionally , spitting food out and chronic wt loss. Labs and meds reviewed. [place] Body Weight 115 Weight During Past 3 Months Has Decreased Amount of Weight Increase/Decrease 20# x 1 mon? some must be d/t During Past 3 Months fluid Weight Change Unintentional Comment Ht: 5'3" Wt: 188# Diet ADA Adequate Intake Prior to Admission No Change in Appetite Eating Less Than Usual Feeding Ability Total Assistance Activity Level Sedentary Skin Problem Amputation Calories Needed to Maintain Weight 1568 kcal/day (30kcal/kg IBW) Estimated Protein Needs 94g/day (1.8g/kg IBW) Estimated Fluid Needs 1500 ml/day Initial assessment face to face time Severe protein calorie with patient (mins) malnutrition Nutrition Problem PES Statement related to inadequate caloric intake/ AMS as evidenced by edema, severe muscle wasting, with inadequate nutrition for > 7 days Nutrition Intervention: Coordination of Care Comment 1. Palliative care no board; Pt likley to enter hospice and code status change once able to talk with . 2. D/w team temp NGT- Will, depend upon families wishes. Pt is X9 days w/o adequate nutrition. Will be difficult for NGT d/t pt AMS, high aspiration risk. Nutrition Monitoring: Energy Intake Comment f/u 05/02 Goals of Care Discharge Assessment Start: 04/19/16 23: 29 Freq: Status: Discharge Document 04/29/16 15:59 JNG(2) (Rec: 04/29/16 16:07 JNG(2) [id number]) Discharge Assessment Discharge Disposition Hospice Accompanied By Ambulance Personnel Belongings sent with patient Yes Summary of Care Provided Yes Patient was provided information on Yes accessing patient portal Level Of Consciousness Inappropriate Disoriented Eating (Feeding) Ability Total Assistance Bathing Ability Total Assistance Upper Body Dressing Ability Total Assistance Lower Body Dressing Ability Total Assistance Ambulation Ability Total Assistance 3 or More Person Assist Toileting Ability Total Assistance Bowel Incontinent Bladder Incontinent Has Patient Been in Isolation During No Hospital Stay Isolation [place] Doctor's Appointment Made Yes Patient Education Given No: sent in D/C packet Discharge Instructions Address Activity Diet Weight Measures Medications Symptoms Worsening Follow Up Labs Problems Patient instructed regarding new No: In discharge packet medications and to provide the list to their Primary Care Provider Was patient discharged on Warfarin for No confirmed VTE diagnosis? Was patient discharged with diagnosis of No ischemic or hemmorrhagic stroke? Flu Vaccine Given No Reason Flu Vaccine Not Given Previously Received Current Flu Season Vaccine administration documented on No EMAR Nursing Summary Patient admitted with NSTEMI, AMS, and UTI. Patient is allergic to PCN and codeine. Code status is a DNRCC. Patient is returning for hospice care. Patient is alert to name only and frequently calls out. Patient will have a dressing to her right neck from temporary HD line removal . Patient also had a left AKA will in the hospital. Patient' s right foot has several wounds as well. PMH: CHF, DM, CKD stage 3, DVTs, a-fib, HLD, HTN, [place], osteoporosis, PAD. Discharge Assessment From OR Start: 04/24/16 08: 34 Freq: Status: Discharge Document 04/24/16 09:30 GENOVEVA (Rec: 04/24/16 09:31 GENOVEVA [facility]) Discharge Assessment From OR Level of Consciousness at Discharge From Under Care of Anesthesia OR Bovie Pad Removed Yes EKG Pads No Pad Site Reaction no Pressure Areas Checked? Yes Tubes/Drains Secured? Yes Circulation Checked? No Prep Solution Removed Post Op? No Tolerated Procedure With No Apparent Yes Injury? EPIV (Powerglide Insertion) Start: 04/20/16 10: 06 Freq: .ONCE Status: Discharge Document 04/20/16 10:07 MWW (Rec: 04/20/16 10:09 MWW [id number]) EPIV Insertion PICC Team EPIV Charge* Yes EPIV Insertion Checklist Prep the EPIV Site apply chloraprep to the skin using a back and forth scrubbing motion apply chloraprep for 30 seconds allow prep to dry During the Procedure clinician is wearing sterile gloves during insertion sterile field and sterile technique are maintained After the Procedure guidewire removed and visualized sterile technique is used to apply the dressing dressing is dated patient provided with education on EPIV infection prevention Name of Clinician Inserting EPIV scotty hallprompt care rn Assisting/Completing Checklist thomas hall Date 04/20/16 Time 10:08 Environmental safety management Start: 04/20/16 21: 07 Freq: Q12H Status: Discharge Document 04/27/16 12:08 KMS (Rec: 04/27/16 20:46 KMS [id number]) Document 04/27/16 17:00 KMS (Rec: 04/27/16 21:00 KMS [id number]) Document 04/28/16 08:00 JNG(2) (Rec: 04/28/16 08:58 JNG(2) [id number]) Document 04/28/16 21:05 JKB (Rec: 04/29/16 06:15 JKB 2NC7) Document 04/29/16 07:00 JNG(2) (Rec: 04/29/16 08:59 JNG(2) [id number]) Fall Precautions Acute Start: 04/19/16 23: 58 Freq: Q12H Status: Discharge Document 04/19/16 23:58 JKB (Rec: 04/20/16 00:20 JKB [id number]) [facility] Fall Risk Assessment Tool High Fall Risk-Implement High Fall Risk History of more than one fall interventions per protocol within 6 months before admission Fall Risk Category High Risk Fall Risk Interventions Low Risk Interventions Bed in lowest position Top side rails up x 2 Secure brake on bed Use properly fitting non-skid footwear Call light and frequently needed objects within reach Encourage patients/families to call for assistance when needed Fall education including risk assessment, injury risk and routine/ Inspect environment for safety and communication risk Supervise and assist with toileting/ADLs as needed Document 04/20/16 07:30 [id number] (Rec: 04/20/16 10:58 [id number]) [facility] Fall Risk Assessment Tool High Fall Risk-Implement High Fall Risk History of more than one fall interventions per protocol within 6 months before admission Fall Risk Category High Risk Fall Risk Interventions Low Risk Interventions Bed in lowest position Top side rails up x 2 Secure brake on bed Use properly fitting non-skid footwear Call light and frequently needed objects within reach Encourage patients/families to call for assistance when needed Fall education including risk assessment, injury risk and routine/ Inspect environment for safety and communication risk Supervise and assist with toileting/ADLs as needed Moderate Risk Interventions Institue fall-risk tooklit ( yellow flag, yellow non-skid socks and High Risk Interventions Activate bed/chair exit Document 04/20/16 19:30 DIMPLE (Rec: 04/20/16 21:07 DIMPLE [id number]) [facility] Fall Risk Assessment Tool Age 70-79 years (2 points) Fall History No falls within last 6 months (0 points) Elimination, Bowel, and Urine N/A (0 pts) Medications: Includes LEARNING TECHNOLOGIST/opiates, On 2 or more high fall risk antivulsants, ant-hypertensives, drugs (5 points) diuretics, hypnotics, Patient Care Equipment: Any equipment Two present (2 points) that tethers patient (e.g. IV infusions, chest tube, indwelling Mobility Requires assistance or supervision for transfer/ ambulation (2 points) Unsteady gait (2 points) Cognition Altered awareness of immediate physical environment (1 point ) Impulsive (2 points) Lack of understanding of physical/cognitive limitations (4 points) Total Fall Risk Score 20 Fall Risk Category High Risk (Greater than 13) Fall Risk Interventions Low Risk Interventions Bed in lowest position Top side rails up x 2 Secure brake on bed Use properly fitting non-skid footwear Call light and frequently needed objects within reach Encourage patients/families to call for assistance when needed Fall education including risk assessment, injury risk and routine/ Inspect environment for safety and communication risk Supervise and assist with toileting/ADLs as needed Moderate Risk Interventions Institue fall-risk tooklit ( yellow flag, yellow non-skid socks and High Risk Interventions Activate bed/chair exit Move patient to room with best visual access Document 04/21/16 07:30 [id number] (Rec: 04/21/16 07:50 [id number]) [facility] Fall Risk Assessment Tool High Fall Risk-Implement High Fall Risk History of more than one fall interventions per protocol within 6 months before admission Fall Risk Category High Risk Fall Risk Interventions Low Risk Interventions Bed in lowest position Top side rails up x 2 Secure brake on bed Use properly fitting non-skid footwear Call light and frequently needed objects within reach Encourage patients/families to call for assistance when needed Fall education including risk assessment, injury risk and routine/ Inspect environment for safety and communication risk Supervise and assist with toileting/ADLs as needed Moderate Risk Interventions Institue fall-risk tooklit ( yellow flag, yellow non-skid socks and High Risk Interventions Activate bed/chair exit Move patient to room with best visual access Document 04/21/16 20:00 KORIN (Rec: 04/21/16 20:17 JNEYMAR [id number]) Replaced By [facility] Fall Risk Assessment Tool High Fall Risk-Implement High Fall Risk History of more than one fall interventions per protocol within 6 months before admission Fall Risk Category High Risk Fall Risk Interventions Low Risk Interventions Bed in lowest position Top side rails up x 2 Secure brake on bed Use properly fitting non-skid footwear Call light and frequently needed objects within reach Encourage patients/families to call for assistance when needed Fall education including risk assessment, injury risk and routine/ Inspect environment for safety and communication risk Supervise and assist with toileting/ADLs as needed Moderate Risk Interventions Institue fall-risk tooklit ( yellow flag, yellow non-skid socks and High Risk Interventions Activate bed/chair exit Move patient to room with best visual access Document 04/22/16 08:00 KEVINS (Rec: 04/22/16 10:42 LJS [id number]) Replaced By [facility] Fall Risk Assessment Tool High Fall Risk-Implement High Fall Risk History of more than one fall interventions per protocol within 6 months before admission Fall Risk Category High Risk Fall Risk Interventions Low Risk Interventions Bed in lowest position Top side rails up x 2 Secure brake on bed Use properly fitting non-skid footwear Call light and frequently needed objects within reach Encourage patients/families to call for assistance when needed Fall education including risk assessment, injury risk and routine/ Inspect environment for safety and communication risk Supervise and assist with toileting/ADLs as needed Moderate Risk Interventions Institue fall-risk tooklit ( yellow flag, yellow non-skid socks and High Risk Interventions Activate bed/chair exit Move patient to room with best visual access Document 04/22/16 20:20 JCL (Rec: 04/22/16 22:11 JCL [id number]) Replaced By [facility] Fall Risk Assessment Tool High Fall Risk-Implement High Fall Risk History of more than one fall interventions per protocol within 6 months before admission Fall Risk Category High Risk Fall Risk Interventions Low Risk Interventions Bed in lowest position Top side rails up x 2 Secure brake on bed Use properly fitting non-skid footwear Call light and frequently needed objects within reach Encourage patients/families to call for assistance when needed Fall education including risk assessment, injury risk and routine/ Inspect environment for safety and communication risk Supervise and assist with toileting/ADLs as needed Moderate Risk Interventions Institue fall-risk tooklit ( yellow flag, yellow non-skid socks and Frequent reorientation for confused patients High Risk Interventions Remain with patient while toileting Activate bed/chair exit Move patient to room with best visual access Document 04/23/16 07:30 LJS (Rec: 04/23/16 09:49 LJS [id number]) [facility] Fall Risk Assessment Tool High Fall Risk-Implement High Fall Risk History of more than one fall interventions per protocol within 6 months before admission Fall Risk Category High Risk Fall Risk Interventions Low Risk Interventions Bed in lowest position Top side rails up x 2 Secure brake on bed Use properly fitting non-skid footwear Call light and frequently needed objects within reach Encourage patients/families to call for assistance when needed Fall education including risk assessment, injury risk and routine/ Inspect environment for safety and communication risk Supervise and assist with toileting/ADLs as needed Moderate Risk Interventions Institue fall-risk tooklit ( yellow flag, yellow non-skid socks and Frequent reorientation for confused patients High Risk Interventions Remain with patient while toileting Activate bed/chair exit Move patient to room with best visual access Document 04/23/16 19:48 JCL (Rec: 04/23/16 21:11 JCL [id number]) [facility] Fall Risk Assessment Tool High Fall Risk-Implement High Fall Risk History of more than one fall interventions per protocol within 6 months before admission Fall Risk Category High Risk Fall Risk Interventions Low Risk Interventions Bed in lowest position Top side rails up x 2 Secure brake on bed Use properly fitting non-skid footwear Call light and frequently needed objects within reach Encourage patients/families to call for assistance when needed Fall education including risk assessment, injury risk and routine/ Inspect environment for safety and communication risk Supervise and assist with toileting/ADLs as needed Moderate Risk Interventions Institue fall-risk tooklit ( yellow flag, yellow non-skid socks and Frequent reorientation for confused patients High Risk Interventions Remain with patient while toileting Activate bed/chair exit Move patient to room with best visual access Document 04/24/16 10:40 [id number] (Rec: 04/24/16 10:41 [id number]) Replaced By [facility] Fall Risk Assessment Tool High Fall Risk-Implement High Fall Risk History of more than one fall interventions per protocol within 6 months before admission Fall Risk Category High Risk Fall Risk Interventions Low Risk Interventions Bed in lowest position Top side rails up x 2 Secure brake on bed Use properly fitting non-skid footwear Call light and frequently needed objects within reach Encourage patients/families to call for assistance when needed Fall education including risk assessment, injury risk and routine/ Inspect environment for safety and communication risk Supervise and assist with toileting/ADLs as needed Moderate Risk Interventions Institue fall-risk tooklit ( yellow flag, yellow non-skid socks and Frequent reorientation for confused patients High Risk Interventions Remain with patient while toileting Activate bed/chair exit Move patient to room with best visual access Obtain pharmacy consult for review of medications Obtain PT consult, if pat Document 04/24/16 19:36 JCL (Rec: 04/24/16 21:43 JCL [id number]) Replaced By [facility] Fall Risk Assessment Tool High Fall Risk-Implement High Fall Risk History of more than one fall interventions per protocol within 6 months before admission Fall Risk Category High Risk Fall Risk Interventions Low Risk Interventions Bed in lowest position Top side rails up x 2 Secure brake on bed Use properly fitting non-skid footwear Call light and frequently needed objects within reach Encourage patients/families to call for assistance when needed Fall education including risk assessment, injury risk and routine/ Inspect environment for safety and communication risk Supervise and assist with toileting/ADLs as needed Moderate Risk Interventions Institue fall-risk tooklit ( yellow flag, yellow non-skid socks and Frequent reorientation for confused patients High Risk Interventions Remain with patient while toileting Activate bed/chair exit Obtain PT consult, if pat Document 04/25/16 10:35 JOYCE (Rec: 04/25/16 11:59 JOYCE [id number]) Replaced By [facility] Fall Risk Assessment Tool High Fall Risk-Implement High Fall Risk History of more than one fall interventions per protocol within 6 months before admission Fall Risk Category High Risk Fall Risk Interventions Low Risk Interventions Bed in lowest position Top side rails up x 2 Secure brake on bed Use properly fitting non-skid footwear Call light and frequently needed objects within reach Encourage patients/families to call for assistance when needed Fall education including risk assessment, injury risk and routine/ Inspect environment for safety and communication risk Supervise and assist with toileting/ADLs as needed Moderate Risk Interventions Institue fall-risk tooklit ( yellow flag, yellow non-skid socks and Frequent reorientation for confused patients High Risk Interventions Activate bed/chair exit Move patient to room with best visual access Document 04/25/16 19:44 JCL (Rec: 04/25/16 21:21 JCL [id number]) Replaced By [facility] Fall Risk Assessment Tool High Fall Risk-Implement High Fall Risk History of more than one fall interventions per protocol within 6 months before admission Fall Risk Category High Risk Fall Risk Interventions Low Risk Interventions Bed in lowest position Top side rails up x 2 Secure brake on bed Use properly fitting non-skid footwear Call light and frequently needed objects within reach Encourage patients/families to call for assistance when needed Fall education including risk assessment, injury risk and routine/ Inspect environment for safety and communication risk Supervise and assist with toileting/ADLs as needed Moderate Risk Interventions Institue fall-risk tooklit ( yellow flag, yellow non-skid socks and Frequent reorientation for confused patients High Risk Interventions Activate bed/chair exit Move patient to room with best visual access Document 04/26/16 07:00 JOYCE (Rec: 04/26/16 13:23 JOYCE [id number]) Replaced By [facility] Calderon Fall Risk Assessment Tool High Fall Risk-Implement High Fall Risk History of more than one fall interventions per protocol within 6 months before admission Fall Risk Category High Risk Fall Risk Interventions Low Risk Interventions Bed in lowest position Top side rails up x 2 Secure brake on bed Use properly fitting non-skid footwear Call light and frequently needed objects within reach Encourage patients/families to call for assistance when needed Fall education including risk assessment, injury risk and routine/ Inspect environment for safety and communication risk Supervise and assist with toileting/ADLs as needed Moderate Risk Interventions Institue fall-risk tooklit ( yellow flag, yellow non-skid socks and Frequent reorientation for confused patients High Risk Interventions Activate bed/chair exit Move patient to room with best visual access Document 04/26/16 19:36 JCL (Rec: 04/26/16 23:24 JCL [id number]) [facility] Fall Risk Assessment Tool High Fall Risk-Implement High Fall Risk History of more than one fall interventions per protocol within 6 months before admission Fall Risk Category High Risk Fall Risk Interventions Low Risk Interventions Bed in lowest position Top side rails up x 2 Secure brake on bed Use properly fitting non-skid footwear Call light and frequently needed objects within reach Encourage patients/families to call for assistance when needed Fall education including risk assessment, injury risk and routine/ Inspect environment for safety and communication risk Supervise and assist with toileting/ADLs as needed Moderate Risk Interventions Institue fall-risk tooklit ( yellow flag, yellow non-skid socks and Frequent reorientation for confused patients High Risk Interventions Activate bed/chair exit Move patient to room with best visual access Document 04/27/16 07:45 KMS (Rec: 04/27/16 20:41 KMS [id number]) Replaced By [facility] Fall Risk Assessment Tool Age 70-79 years (2 points) Fall History No falls within last 6 months (0 points) Elimination, Bowel, and Urine N/A (0 pts) Medications: Includes LEARNING TECHNOLOGIST/opiates, On 2 or more high fall risk antivulsants, ant-hypertensives, drugs (5 points) diuretics, hypnotics, Patient Care Equipment: Any equipment One present (1 point) that tethers patient (e.g. IV infusions, chest tube, indwelling Mobility N/A (0 points) Cognition Impulsive (2 points) Lack of understanding of physical/cognitive limitations (4 points) Total Fall Risk Score 14 Fall Risk Category High Risk (Greater than 13) Fall Risk Interventions Low Risk Interventions Bed in lowest position Top side rails up x 2 Secure brake on bed Use properly fitting non-skid footwear Call light and frequently needed objects within reach Encourage patients/families to call for assistance when needed Fall education including risk assessment, injury risk and routine/ Inspect environment for safety and communication risk Supervise and assist with toileting/ADLs as needed Moderate Risk Interventions Institue fall-risk tooklit ( yellow flag, yellow non-skid socks and Frequent reorientation for confused patients High Risk Interventions Remain with patient while toileting Activate bed/chair exit Move patient to room with best visual access Obtain PT consult, if pat Document 04/28/16 08:00 JNG(2) (Rec: 04/28/16 08:58 JNG(2) [id number]) [facility] Fall Risk Assessment Tool High Fall Risk-Implement High Fall Risk History of more than one fall interventions per protocol within 6 months before admission Fall Risk Category High Risk Fall Risk Interventions Low Risk Interventions Bed in lowest position Top side rails up x 2 Secure brake on bed Use properly fitting non-skid footwear Call light and frequently needed objects within reach Encourage patients/families to call for assistance when needed Fall education including risk assessment, injury risk and routine/ Inspect environment for safety and communication risk Supervise and assist with toileting/ADLs as needed Moderate Risk Interventions Institue fall-risk tooklit ( yellow flag, yellow non-skid socks and Frequent reorientation for confused patients High Risk Interventions Remain with patient while toileting Activate bed/chair exit Move patient to room with best visual access Obtain PT consult, if pat Document 04/28/16 21:05 KORIN (Rec: 04/29/16 06:15 [id number] [id number]) [facility] Fall Risk Assessment Tool High Fall Risk-Implement High Fall Risk History of more than one fall interventions per protocol within 6 months before admission Fall Risk Category High Risk Fall Risk Interventions Low Risk Interventions Bed in lowest position Top side rails up x 2 Secure brake on bed Use properly fitting non-skid footwear Call light and frequently needed objects within reach Encourage patients/families to call for assistance when needed Fall education including risk assessment, injury risk and routine/ Inspect environment for safety and communication risk Supervise and assist with toileting/ADLs as needed Moderate Risk Interventions Institue fall-risk tooklit ( yellow flag, yellow non-skid socks and Frequent reorientation for confused patients High Risk Interventions Remain with patient while toileting Activate bed/chair exit Move patient to room with best visual access Obtain PT consult, if pat Document 04/29/16 07:00 JNG(2) (Rec: 04/29/16 08:59 JNG(2) [id number]) [facility] Fall Risk Assessment Tool High Fall Risk-Implement High Fall Risk History of more than one fall interventions per protocol within 6 months before admission Fall Risk Category High Risk Fall Risk Interventions Low Risk Interventions Bed in lowest position Top side rails up x 2 Secure brake on bed Use properly fitting non-skid footwear Call light and frequently needed objects within reach Encourage patients/families to call for assistance when needed Fall education including risk assessment, injury risk and routine/ Inspect environment for safety and communication risk Supervise and assist with toileting/ADLs as needed Moderate Risk Interventions Institue fall-risk tooklit ( yellow flag, yellow non-skid socks and Frequent reorientation for confused patients High Risk Interventions Remain with patient while toileting Activate bed/chair exit Move patient to room with best visual access Obtain PT consult, if pat Flu Vaccine Screen Start: 04/19/16 23: 29 Freq: Status: Discharge Document 04/29/16 15:59 JNG(2) (Rec: 04/29/16 16:07 JNG(2) [id number]) Flu Vaccine Screen Influenza vaccine indications 6 months of age or older Resident of a longterm or chronic care facility Chronic heart or lung disease (including asthma) Kidney disease Flu Vaccine Contraindications Previously Received Current Flu Season Vaccine Information Sheet Given(Version Yes 09/12/2014) Patient meets criteria for vaccination No and consents to receive it Glucose, blood point of care measurement Start: 04/20/16 07: 08 Freq: Status: Discharge Document 04/25/16 15:57 [id number] (Rec: 04/25/16 15:59 [id number]) Blood Glucose Assessment Blood Glucose* 194 Action Taken on board/informed rn Glucose, blood point of care measurement Start: 04/20/16 18: 37 Freq: ACHS Status: Complete Document 04/27/16 06:49 APF (Rec: 04/27/16 07:00 APF [id number]) Hemodialysis Initial Assessment Start: 04/27/16 08: 21 Freq: Status: Discharge Document 04/28/16 09:00 KA (Rec: 04/28/16 10:01 KA [id number]) Hemodialysis Initial Assessment Time out Yes [facility] Consent Verified Yes Catheter Access right IJ Flow good Notified if Access Problem N/A Graft/Fistula Access N/A Notified if Access Problem N/A Lung Sounds wheezing Lung Sound Location RLL LLL RUL [facility] Cough N/A Respirations easy Oxygen Delivery Method Room Air Cardiac regular left arm Edema Type Non-Pitting Skin Temperature Warm Skin Moisture Dry Skin Color/Appearance [place] Patient Orientation Person LOC confused Abdomen Description Soft Non-Tender Bowel Sounds Active Groin Pain Interventions None Left Knee Pain Interventions None Mobility bed Patient information Treatment Type Acute Treatment Location acute room First Treatment Ever? No Isolation [place] Blood Consent Varified N/A HBsAg Date Drawn 04/27/16 HBsAg Result negative HBsAb Date Drawn 04/27/16 HBsAb Result susceptable <10 BUN see Creatinine nn Diet Diabetic Renal Report Received From Kiesha Nieves RN Time Report Recieved 08:50 04/28/16 09:27 Nurse Note by Stacey Wilson All Lab Results (24 Hours) 04/26/16 04/27/16 04/27/16 Range/Units 11:00 06:59 10:15 WBC (4.3-11.1) K/mcL RBC (3.82-4.97) M/mcL Hgb (11.5-15.4) g/dL Hct (35.3-44.9) % MCV (83.0-100.0) fL MCH (28.0-33.3) pg MCHC (31.6-35.5) g/dL RDW (11.5-14.5) % Plt Count (140-400) K/mcL MPV (9.4-12.4) fL Immature Gran % (0-4) % Seg Neutrophils % % Lymphocytes % % Monocytes % % Eosinophils % % Basophils % % Neutrophils # (1.6-8.9) K/mcL Lymphocytes # (0.6-4.6) K/mcL Monocytes # (0.0-1.3) K/mcL Eosinophils # (0.0-0.6) K/mcL Basophils # (0.0-0.2) K/mcL PT (9.4-12.1) Seconds INR Sodium (136-145) mEq/L Potassium (3.5-4.5) mEq/L Chloride (98-109) mEq/L Carbon Dioxide (19-29) mEq/L BUN (7-20) mg/dL Creatinine (0.57-1.11) mg/dL Est GFR ( Amer) (> 60) Est GFR (Non-Af Amer) (> 60) BUN/Creatinine Ratio (6-26) Glucose (70-99) mg/dL POC Glucose 119 H (58-89) Calculated Osmolality (280-300) Calcium (8.6-10.8) mg/dL Complement C3 67 L (88-201) mg/dL Complement C4 20 (10-40) mg/dL Hep Bs Antigen Nonreactive (Nonreactive) Hep Bs Antibody 0.34 mIU/mL 04/27/16 04/27/16 04/27/16 Range/Units 11:20 17:02 21:14 WBC (4.3-11.1) K/mcL RBC (3.82-4.97) M/mcL Hgb (11.5-15.4) g/dL Hct (35.3-44.9) % MCV (83.0-100.0) fL MCH (28.0-33.3) pg MCHC (31.6-35.5) g/dL RDW (11.5-14.5) % Plt Count (140-400) K/mcL MPV (9.4-12.4) fL Immature Gran % (0-4) % Seg Neutrophils % % Lymphocytes % % Monocytes % % Eosinophils % % Basophils % % Neutrophils # (1.6-8.9) K/mcL Lymphocytes # (0.6-4.6) K/mcL Monocytes # (0.0-1.3) K/mcL Eosinophils # (0.0-0.6) K/mcL Basophils # (0.0-0.2) K/mcL PT (9.4-12.1) Seconds INR Sodium (136-145) mEq/L Potassium (3.5-4.5) mEq/L Chloride (98-109) mEq/L Carbon Dioxide (19-29) mEq/L BUN (7-20) mg/dL Creatinine (0.57-1.11) mg/dL Est GFR ( Amer) (> 60) Est GFR (Non-Af Amer) (> 60) BUN/Creatinine Ratio (6-26) Glucose (70-99) mg/dL POC Glucose 123 H 100 H 102 H (58-89) Calculated Osmolality (280-300) Calcium (8.6-10.8) mg/dL Complement C3 (88-201) mg/dL Complement C4 (10-40) mg/dL Hep Bs Antigen (Nonreactive) Hep Bs Antibody mIU/mL 04/28/16 04/28/16 04/28/16 Range/Units 05:00 05:00 05:00 WBC 5.0 (4.3-11.1) K/mcL RBC 3.51 L (3.82-4.97) M/mcL Hgb 8.4 L (11.5-15.4) g/dL Hct 27.9 L (35.3-44.9) % MCV 79.5 L (83.0-100.0) fL MCH 23.9 L (28.0-33.3) pg MCHC 30.1 L (31.6-35.5) g/dL RDW 19.0 H (11.5-14.5) % Plt Count 174 (140-400) K/mcL MPV 12.1 (9.4-12.4) fL Immature Gran % 1.8 (0-4) % Seg Neutrophils % 70.2 % Lymphocytes % 17.3 % Monocytes % 8.5 % Eosinophils % 2.0 % Basophils % 0.2 % Neutrophils # 3.5 (1.6-8.9) K/mcL Lymphocytes # 0.9 (0.6-4.6) K/mcL Monocytes # 0.4 (0.0-1.3) K/mcL Eosinophils # 0.1 (0.0-0.6) K/mcL Basophils # 0.0 (0.0-0.2) K/mcL PT 20.7 H (9.4-12.1) Seconds INR 1.9 Sodium 140 (136-145) mEq/L Potassium 3.7 (3.5-4.5) mEq/L Chloride 106 (98-109) mEq/L Carbon Dioxide 26 (19-29) mEq/L BUN 34 H D (7-20) mg/dL Creatinine 2.55 H (0.57-1.11) mg/dL Est GFR ( Amer) 22 L (> 60) Est GFR (Non-Af Amer) 18 L (> 60) BUN/Creatinine Ratio 13 (6-26) Glucose 95 (70-99) mg/dL POC Glucose (58-89) Calculated Osmolality 297 (280-300) Calcium 7.6 L (8.6-10.8) mg/dL Complement C3 (88-201) mg/dL Complement C4 (10-40) mg/dL Hep Bs Antigen (Nonreactive) Hep Bs Antibody mIU/mL Initialized on 04/28/16 09:27 - END OF NOTE Hemodialysis Machine Safety Ch Machine Serial # [id number] Alarm Test pass RO Serial # [id number] Lot #'s: Dialyzer [id number] Tubing [id number] RO/Machine Log Complete Yes Extracorporeal Circuit Tested for Yes Integrity pH 7.4 Temp 36 Meter 14.4 HD Machine 15.3 0900 Total Chlorine 0.00 Dialysis Precautions all connections secured venous parameters set prime given saline line double clamped arterial parameters set air foam detector engaged Dialysis Education Education Topic access care S&S of infection fluid management potassium procedure albumin medications treatment options transplant diet other Recipient Patient Primary Caregiver Response Verbalize understanding Methods Discussion Education Provided: Details Incapacitated Nurse Protocol reviewed with Primary Care Nurse . Patient education given verbally , patient yells out for her mom , and for help does not verbalize understand , will become quite when spoken to. 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 Output, Urine Amount 100 Blood Pressure 130/20 Heart rate 83 Temperature (97.6 F-99.6 F) 98.1 F Respiratory Rate 18 Dialyzer Cleared good Blood Processed (L) 46.0 Catheter Locking Solution heparin Amount Art (mL) 1.4 Amount Yo (mL) 1.5 Skin Temperature Warm Skin Moisture Dry Skin Color/Appearance [place] Lung Sound Location [facility] L[facility] Lung Sounds wheezing Cardiac regular Rhythm on Pest Control Supervisor NSR left arm Edema Type Non-Pitting Groin Pain Interventions None Report Given to Kiesha Atkins RN Time Report Given 12:00 Hemodialysis settings/Flow Sheet Start: 04/27/16 08: 21 Freq: Status: Discharge Document 04/28/16 09:05 KA (Rec: 04/28/16 10:13 KA [id number]) Hemodialysis Flow Sheet Blood Pressure 156/59 Heart rate 85 Temperature (97.6 F-99.6 F) 97.1 F L Respiratory Rate 22 Treatment Initiation Hemodialysis initiated at this time ( Yes only answer this one time, per patient)* Treatment Initiation Note H2O alarm in place , hemoclips x's two in place , Tolerating without distress , patient is calling out for her mom, she calms when spoken to , Dr Cheng at bedside Blood Pressure 145/62 Heart rate 83 Blood Flow Rate 300 Dialysate Flow Rate (mL/Min) 500 Arterial Pressure -90 venous pressure 70 Transmembrane Pressure 60 Ultrafiltration Rate 850 Fluid Input 300 Fluid Removed (mL) 0 Transducer Check Yes Access in View Yes Intradialytic Monitoring treatment initiated , no distress noted Document 04/28/16 09:20 KA (Rec: 04/28/16 10:19 KA [id number]) Treatment Initiation Blood Pressure 135/59 Heart rate 86 Blood Flow Rate 300 Dialysate Flow Rate (mL/Min) 500 Arterial Pressure -100 venous pressure 70 Transmembrane Pressure 60 Ultrafiltration Rate 850 Fluid Input 300 Fluid Removed (mL) 216 Transducer Check Yes Access in View Yes Intradialytic Monitoring patient tolerating without distress , alert to her name and continues to call out for her mom , she is easily distracted by talking th her and reassurance Document 04/28/16 09:35 KA (Rec: 04/28/16 10:20 KA [id number]) Treatment Initiation Blood Pressure 126/52 Heart rate 75 Blood Flow Rate 300 Dialysate Flow Rate (mL/Min) 500 Arterial Pressure -100 venous pressure 70 Transmembrane Pressure 60 Ultrafiltration Rate 850 Fluid Input 300 Fluid Removed (mL) 402 Transducer Check Yes Access in View Yes Intradialytic Monitoring tolerating treatment without distress Document 04/28/16 09:50 KA (Rec: 04/28/16 10:22 KA [id number]) Treatment Initiation Blood Pressure 133/79 Heart rate 69 Blood Flow Rate 300 Dialysate Flow Rate (mL/Min) 500 Arterial Pressure -100 venous pressure 70 Transmembrane Pressure 60 Ultrafiltration Rate 850 Fluid Input 300 Fluid Removed (mL) 607 Transducer Check Yes Access in View Yes Intradialytic Monitoring tolerating treatment without distress Document 04/28/16 10:05 KA (Rec: 04/28/16 10:23 KA [id number]) Treatment Initiation Blood Pressure 106/50 Heart rate 67 Blood Flow Rate 300 Dialysate Flow Rate (mL/Min) 500 Arterial Pressure -100 venous pressure 70 Transmembrane Pressure 60 Ultrafiltration Rate 850 Fluid Input 300 Fluid Removed (mL) 822 Transducer Check Yes Access in View Yes Intradialytic Monitoring tolerating treatment without distress UF off for five minutes to apply BP cuff to lower arm and reevaluate . Dr Cheng is aware of holding until BP was reevaluated and BP was WNL for treatment to continue Document 04/28/16 10:20 KA (Rec: 04/28/16 10:45 KA [id number]) Treatment Initiation Blood Pressure 103/58 Heart rate 71 Blood Flow Rate 300 Dialysate Flow Rate (mL/Min) 500 Arterial Pressure -100 venous pressure 70 Transmembrane Pressure 60 Ultrafiltration Rate 850 Fluid Input 300 Fluid Removed (mL) 1036 Transducer Check Yes Access in View Yes Intradialytic Monitoring tolerating treatment without distress Document 04/28/16 10:35 KA (Rec: 04/28/16 10:53 KA [id number]) Treatment Initiation Blood Pressure 117/42 Heart rate 81 Blood Flow Rate 300 Dialysate Flow Rate (mL/Min) 500 Arterial Pressure -100 venous pressure 70 Transmembrane Pressure 60 Ultrafiltration Rate 850 Fluid Input 300 Fluid Removed (mL) 1236 Transducer Check Yes Access in View Yes Intradialytic Monitoring tolerating treatment without distress Document 04/28/16 10:50 KA (Rec: 04/28/16 11:16 KA [id number]) Treatment Initiation Blood Pressure 118/55 Heart rate 82 Blood Flow Rate 300 Dialysate Flow Rate (mL/Min) 500 Arterial Pressure -100 venous pressure 70 Transmembrane Pressure 60 Ultrafiltration Rate 850 Fluid Input 300 Fluid Removed (mL) 1454 Transducer Check Yes Access in View Yes Intradialytic Monitoring tolerating treatment without distress , she frequently yells out for her mom, she will answer to her name ,, she will states she is not sure where she is but wants her mom or he brother , she is comforted and redirected easily . Document 04/28/16 11:05 KA (Rec: 04/28/16 11:17 KA [id number]) Treatment Initiation Blood Pressure 124/51 Heart rate 82 Blood Flow Rate 300 Dialysate Flow Rate (mL/Min) 500 Arterial Pressure -100 venous pressure 70 Transmembrane Pressure 60 Ultrafiltration Rate 850 Fluid Input 300 Fluid Removed (mL) 1652 Transducer Check Yes Access in View Yes Intradialytic Monitoring tolerating treatment without distress Document 04/28/16 11:20 KA (Rec: 04/28/16 11:24 KA [id number]) Treatment Initiation Blood Pressure 134/57 Heart rate 71 Blood Flow Rate 300 Dialysate Flow Rate (mL/Min) 500 Arterial Pressure -100 venous pressure 70 Transmembrane Pressure 60 Ultrafiltration Rate 850 Fluid Input 300 Fluid Removed (mL) 1885 Transducer Check Yes Access in View Yes Intradialytic Monitoring tolerating treatment without distress Document 04/28/16 11:35 KA (Rec: 04/28/16 12:26 KA [id number]) Treatment Initiation Blood Pressure 108/68 Heart rate 62 Blood Flow Rate 300 Dialysate Flow Rate (mL/Min) 500 Arterial Pressure -100 venous pressure 70 Transmembrane Pressure 60 Ultrafiltration Rate 850 Fluid Input 300 Fluid Removed (mL) 2073 Transducer Check Yes Access in View Yes Intradialytic Monitoring tolerating treatment without distress , remains alert to her name , will answer questions although most answers are " I dont know " , Treatment completed , blood return to patient , access flushes and asperates without difficulty , dressing clean and dry . Hygiene activity Start: 04/19/16 23: 58 Freq: .PRN Status: Discharge Document 04/20/16 09:36 MAB (Rec: 04/20/16 09:36 MAB [id number]) Hygiene Bath Type Partial Bed Bath Bathing Ability Moderate Assistance [facility] Completed By Staff Document 04/23/16 20:59 BJS (Rec: 04/23/16 20:59 BJS [id number]) Hygiene Bath Type Full Bed Bath Bathing Ability 1 Person Assist [facility] Completed By Staff Document 04/26/16 16:05 [id number] (Rec: 04/26/16 16:05 [id number]) Hygiene Bath Type Full Bed Bath Bathing Ability 2 Person Assist [facility] Completed By Staff Linen Change Complete IV-Invasive Line Management Start: 04/19/16 23: 58 Freq: Q4H Status: Discharge Document 04/19/16 23:58 JKB (Rec: 04/20/16 00:25 JKB [id number]) IV/Invasive Line Assessment Right Hand Date of Insertion 04/19/16 Comment INSERTED BY EMS IV Catheter Type Peripheral IV Site Observation Patent Dressing Applied Transparent Dressing Dry/Intact Date Dressing Last Changed 04/19/16 Line Care Saline Flush Check Blood Return Document 04/20/16 06:00 JKB (Rec: 04/20/16 06:46 JKB [id number]) IV/Invasive Line Assessment Left Antecubital Date of Insertion 04/20/16 Time of Insertion 06:30 Insertion Attempts 1 Reason for Line Insertion/Rationale for Replace Lost Fluids Insertion Maintain Electrolyte Balance Provide Access for IV Medication(s) Provide Access for Emergency Line Insertion Patient Tolerance pt. yelling out Gauge (gauge) 20 IV Catheter Type Peripheral IV Site Observation Patent [place] Site Observation Intervention [place] IV Inserted Dressing Applied Transparent Dressing Dry/Intact Date Dressing Last Changed 04/20/16 Line Care Saline Flush Tubing Changed IV-Invasive Line Management Start: 04/20/16 08: 48 Freq: q4h Status: Discharge Document 04/20/16 07:30 [id number] (Rec: 04/20/16 10:58 [id number]) IV/Invasive Line Assessment Right Upper Arm Basilic Vein Date of Insertion 04/20/16 Time of Insertion 10:08 Insertion Attempts 1 Reason for Line Insertion/Rationale for Replace Lost Fluids Insertion Maintain Electrolyte Balance Provide Access for IV Medication(s) Provide Access for Blood Provide Access for Emergency Line Insertion Patient Tolerance Tolerated Well Gauge (gauge) 18 Number of Lumens 1 IV Catheter Type Extended Peripheral IV Site Observation Patent Site Observation Intervention [place] IV Inserted Inspected Line Dressing Applied Dry/Intact Date Dressing Last Changed 04/20/16 Line Care Saline Flush P-Locked Securement Device in Place Left Antecubital Date of Insertion 04/20/16 Time of Insertion 06:30 Insertion Attempts 1 Reason for Line Insertion/Rationale for Replace Lost Fluids Insertion Maintain Electrolyte Balance Provide Access for IV Medication(s) Provide Access for Emergency Line Insertion Patient Tolerance pt. yelling out Gauge (gauge) 20 IV Catheter Type Peripheral IV Site Observation Patent [place] Site Observation Intervention IV Removed by Provider Dressing Applied Transparent Dressing Dry/Intact Date Dressing Last Changed 04/20/16 Line Care Saline Flush Tubing Changed Right Hand Date of Insertion 04/19/16 Reason for Line Insertion/Rationale for Provide Access for IV Insertion Medication(s) Gauge (gauge) 20 IV Catheter Type Peripheral IV Site Observation Patent Dressing Applied Dry/Intact Date Dressing Last Changed 04/19/16 Line Care Saline Flush Date IV Line Discontinued 04/20/16 Time IV Line Discontinued 08:30 IV Line Discontinue Reason infiltrated Condition of IV Line Removed tip intact IV Line Removal Patient Tolerance Tolerated Well Sterile Dressing Applied IV removed/ tip intact Bleeding Controlled Education Completed Expresses Understanding Labs drawn from Line* Yes Document 04/20/16 16:00 [id number] (Rec: 04/20/16 18:33 [id number]) IV/Invasive Line Assessment Right Upper Arm Basilic Vein Date of Insertion 04/20/16 Time of Insertion 10:08 Insertion Attempts 1 Reason for Line Insertion/Rationale for Replace Lost Fluids Insertion Maintain Electrolyte Balance Provide Access for IV Medication(s) Provide Access for Blood Provide Access for Emergency Line Insertion Patient Tolerance Tolerated Well Gauge (gauge) 18 Number of Lumens 1 IV Catheter Type Extended Peripheral IV Site Observation Patent Site Observation Intervention [place] IV Inserted Inspected Line Dressing Applied Dry/Intact Date Dressing Last Changed 04/20/16 Line Care Saline Flush P-Locked Cap(s) Changed Securement Device in Place Check Blood Return Sutures in Place Right Hand Date of Insertion 04/19/16 Reason for Line Insertion/Rationale for Provide Access for IV Insertion Medication(s) Gauge (gauge) 20 IV Catheter Type Peripheral IV Site Observation Patent Dressing Applied Dry/Intact Date Dressing Last Changed 04/19/16 Line Care Saline Flush Date IV Line Discontinued 04/20/16 Time IV Line Discontinued 08:30 IV Line Discontinue Reason infiltrated Condition of IV Line Removed tip intact IV Line Removal Patient Tolerance Tolerated Well Sterile Dressing Applied IV removed/ tip intact Bleeding Controlled Education Completed Expresses Understanding Labs drawn from Line* Yes Document 04/20/16 19:30 DIMPLE (Rec: 04/20/16 21:07 [id number]) IV/Invasive Line Assessment Right Upper Arm Basilic Vein Date of Insertion 04/20/16 Time of Insertion 10:08 Insertion Attempts 1 Reason for Line Insertion/Rationale for Replace Lost Fluids Insertion Maintain Electrolyte Balance Provide Access for IV Medication(s) Provide Access for Blood Provide Access for Emergency Line Insertion Patient Tolerance Tolerated Well Gauge (gauge) 18 Number of Lumens 1 IV Catheter Type Extended Peripheral IV Site Observation Patent Site Observation Intervention Inspected Line Dressing Applied Dry/Intact Date Dressing Last Changed 04/20/16 Line Care Saline Flush P-Locked Cap(s) Changed Securement Device in Place Right Hand Date of Insertion 04/19/16 Reason for Line Insertion/Rationale for Provide Access for IV Insertion Medication(s) Gauge (gauge) 20 IV Catheter Type Peripheral IV Site Observation Patent Dressing Applied Dry/Intact Date Dressing Last Changed 04/19/16 Line Care Saline Flush P-Locked Document 04/20/16 23:05 DIMPLE (Rec: 04/20/16 23:18 [id number]) IV/Invasive Line Assessment Right Upper Arm Basilic Vein Date of Insertion 04/20/16 Time of Insertion 10:08 Insertion Attempts 1 Reason for Line Insertion/Rationale for Replace Lost Fluids Insertion Maintain Electrolyte Balance Provide Access for IV Medication(s) Provide Access for Blood Provide Access for Emergency Line Insertion Patient Tolerance Tolerated Well Gauge (gauge) 18 Number of Lumens 1 IV Catheter Type Extended Peripheral IV Site Observation Patent Site Observation Intervention Inspected Line Dressing Applied Dry/Intact Date Dressing Last Changed 04/20/16 Line Care Saline Flush P-Locked Cap(s) Changed Securement Device in Place Right Hand Date of Insertion 04/19/16 Reason for Line Insertion/Rationale for Provide Access for IV Insertion Medication(s) Gauge (gauge) 20 IV Catheter Type Peripheral IV Site Observation Patent Dressing Applied Dry/Intact Date Dressing Last Changed 04/19/16 Line Care Saline Flush P-Locked Document 04/21/16 07:30 [id number] (Rec: 04/21/16 07:50 [id number]) IV/Invasive Line Assessment Right Upper Arm Basilic Vein Date of Insertion 04/20/16 Time of Insertion 10:08 Insertion Attempts 1 Reason for Line Insertion/Rationale for Replace Lost Fluids Insertion Maintain Electrolyte Balance Provide Access for IV Medication(s) Provide Access for Blood Provide Access for Emergency Line Insertion Patient Tolerance Tolerated Well Gauge (gauge) 18 Number of Lumens 1 IV Catheter Type Extended Peripheral IV Site Observation Patent Dressing Applied Dry/Intact Date Dressing Last Changed 04/20/16 Line Care Saline Flush P-Locked Securement Device in Place Right Hand Date of Insertion 04/19/16 Reason for Line Insertion/Rationale for Provide Access for IV Insertion Medication(s) Gauge (gauge) 20 IV Catheter Type Peripheral IV Site Observation Patent Dressing Applied Dry/Intact Date Dressing Last Changed 04/19/16 Line Care Saline Flush P-Locked Date IV Line Discontinued 04/21/16 Time IV Line Discontinued 07:30 IV Line Discontinue Reason catheter displaced Condition of IV Line Removed tip intact IV Line Removal Patient Tolerance Tolerated Well Sterile Dressing Applied IV removed/ tip intact Bleeding Controlled Education Completed Expresses Understanding Labs drawn from Line* Yes Document 04/21/16 11:30 [id number] (Rec: 04/21/16 14:03 [id number]) IV/Invasive Line Assessment Right Upper Arm Basilic Vein Date of Insertion 04/20/16 Time of Insertion 10:08 Insertion Attempts 1 Reason for Line Insertion/Rationale for Replace Lost Fluids Insertion Maintain Electrolyte Balance Provide Access for IV Medication(s) Provide Access for Blood Provide Access for Emergency Line Insertion Patient Tolerance Tolerated Well Gauge (gauge) 18 Number of Lumens 1 IV Catheter Type Extended Peripheral IV Site Observation Patent Dressing Applied Dry/Intact Date Dressing Last Changed 04/20/16 Line Care Saline Flush P-Locked Cap(s) Changed Securement Device in Place Check Blood Return Date IV Line Discontinued 04/21/16 Time IV Line Discontinued 07:30 IV Line Discontinue Reason catheter displaced Condition of IV Line Removed tip intact IV Line Removal Patient Tolerance Tolerated Well Sterile Dressing Applied IV removed/ tip intact Bleeding Controlled Education Completed Expresses Understanding Labs drawn from Line* Yes Document 04/21/16 16:00 [id number] (Rec: 04/21/16 17:40 [id number]) IV/Invasive Line Assessment Right Upper Arm Basilic Vein Date of Insertion 04/20/16 Time of Insertion 10:08 Insertion Attempts 1 Reason for Line Insertion/Rationale for Replace Lost Fluids Insertion Maintain Electrolyte Balance Provide Access for IV Medication(s) Provide Access for Blood Provide Access for Emergency Line Insertion Patient Tolerance Tolerated Well Gauge (gauge) 18 Number of Lumens 1 IV Catheter Type Extended Peripheral IV Site Observation Patent Dressing Applied Dry/Intact Date Dressing Last Changed 04/20/16 Line Care Saline Flush Cap(s) Changed Securement Device in Place Date IV Line Discontinued 04/21/16 Time IV Line Discontinued 07:30 IV Line Discontinue Reason catheter displaced Condition of IV Line Removed tip intact IV Line Removal Patient Tolerance Tolerated Well Sterile Dressing Applied IV removed/ tip intact Bleeding Controlled Education Completed Expresses Understanding Labs drawn from Line* Yes Document 04/21/16 20:00 JKB (Rec: 04/21/16 20:14 [id number] [id number]) IV/Invasive Line Assessment Right Upper Arm Basilic Vein Date of Insertion 04/20/16 Time of Insertion 10:08 Insertion Attempts 1 Reason for Line Insertion/Rationale for Replace Lost Fluids Insertion Maintain Electrolyte Balance Provide Access for IV Medication(s) Provide Access for Blood Provide Access for Emergency Line Insertion Patient Tolerance Tolerated Well Gauge (gauge) 18 Number of Lumens 1 IV Catheter Type Extended Peripheral IV Site Observation Patent Dressing Applied Dry/Intact Date Dressing Last Changed 04/20/16 Line Care Saline Flush Cap(s) Changed Securement Device in Place Labs drawn from Line* Yes Document 04/22/16 00:00 JKB (Rec: 04/22/16 08:36 [id number]) IV/Invasive Line Assessment Right Upper Arm Basilic Vein Date of Insertion 04/20/16 Time of Insertion 10:08 Insertion Attempts 1 Reason for Line Insertion/Rationale for Replace Lost Fluids Insertion Maintain Electrolyte Balance Provide Access for IV Medication(s) Provide Access for Blood Provide Access for Emergency Line Insertion Patient Tolerance Tolerated Well Gauge (gauge) 18 Number of Lumens 1 IV Catheter Type Extended Peripheral IV Site Observation Patent Dressing Applied Dry/Intact Date Dressing Last Changed 04/20/16 Line Care Saline Flush Cap(s) Changed Securement Device in Place Document 04/22/16 03:45 JKB (Rec: 04/22/16 08:41 [id number]) IV/Invasive Line Assessment Right Upper Arm Basilic Vein Date of Insertion 04/20/16 Time of Insertion 10:08 Insertion Attempts 1 Reason for Line Insertion/Rationale for Replace Lost Fluids Insertion Maintain Electrolyte Balance Provide Access for IV Medication(s) Provide Access for Blood Provide Access for Emergency Line Insertion Patient Tolerance Tolerated Well Gauge (gauge) 18 Number of Lumens 1 IV Catheter Type Extended Peripheral IV Site Observation Patent Dressing Applied Dry/Intact Date Dressing Last Changed 04/20/16 Line Care Saline Flush Cap(s) Changed Securement Device in Place Labs drawn from Line* Yes Document 04/22/16 10:43 LJS (Rec: 04/22/16 11:00 [id number]) IV/Invasive Line Assessment Right Upper Arm Basilic Vein Date of Insertion 04/20/16 Time of Insertion 10:08 Insertion Attempts 1 Reason for Line Insertion/Rationale for Replace Lost Fluids Insertion Maintain Electrolyte Balance Provide Access for IV Medication(s) Provide Access for Blood Provide Access for Emergency Line Insertion Patient Tolerance Tolerated Well Gauge (gauge) 18 Number of Lumens 1 IV Catheter Type Extended Peripheral IV Site Observation Patent Dressing Applied Dry/Intact Date Dressing Last Changed 04/20/16 Line Care Saline Flush Cap(s) Changed Securement Device in Place Labs drawn from Line* No Document 04/22/16 11:45 LJS (Rec: 04/22/16 12:32 [id number]) IV/Invasive Line Assessment Right Upper Arm Basilic Vein Date of Insertion 04/20/16 Time of Insertion 10:08 Insertion Attempts 1 Reason for Line Insertion/Rationale for Replace Lost Fluids Insertion Maintain Electrolyte Balance Provide Access for IV Medication(s) Provide Access for Blood Provide Access for Emergency Line Insertion Patient Tolerance Tolerated Well Gauge (gauge) 18 Number of Lumens 1 IV Catheter Type Extended Peripheral IV Site Observation Patent Dressing Applied Dry/Intact Date Dressing Last Changed 04/20/16 Line Care Saline Flush Cap(s) Changed Securement Device in Place Labs drawn from Line* Yes Document 04/22/16 15:21 LJS (Rec: 04/22/16 15:25 [id number]) IV/Invasive Line Assessment Right Upper Arm Basilic Vein Date of Insertion 04/20/16 Time of Insertion 10:08 Insertion Attempts 1 Reason for Line Insertion/Rationale for Replace Lost Fluids Insertion Maintain Electrolyte Balance Provide Access for IV Medication(s) Provide Access for Blood Provide Access for Emergency Line Insertion Patient Tolerance Tolerated Well Gauge (gauge) 18 Number of Lumens 1 IV Catheter Type Extended Peripheral IV Site Observation Patent Dressing Applied Dry/Intact Date Dressing Last Changed 04/20/16 Line Care Saline Flush Cap(s) Changed Securement Device in Place Labs drawn from Line* No Document 04/22/16 20:20 JCL (Rec: 04/22/16 22:11 [id number] [id number]) IV/Invasive Line Assessment Right Upper Arm Basilic Vein Date of Insertion 04/20/16 Time of Insertion 10:08 Insertion Attempts 1 Reason for Line Insertion/Rationale for Replace Lost Fluids Insertion Maintain Electrolyte Balance Provide Access for IV Medication(s) Provide Access for Blood Provide Access for Emergency Line Insertion Patient Tolerance Tolerated Well Gauge (gauge) 18 Number of Lumens 1 IV Catheter Type Extended Peripheral IV Site Observation Patent Site Observation Intervention Inspected Line Dressing Applied Transparent Dressing Chlorhexidine Gluconate Impregnated Disc Dry/Intact Date Dressing Last Changed 04/20/16 Line Care Saline Flush P-Locked Securement Device in Place Labs drawn from Line* No Document 04/22/16 23:42 JCL (Rec: 04/23/16 01:40 [id number]) IV/Invasive Line Assessment Right Upper Arm Basilic Vein Date of Insertion 04/20/16 Time of Insertion 10:08 Insertion Attempts 1 Reason for Line Insertion/Rationale for Replace Lost Fluids Insertion Maintain Electrolyte Balance Provide Access for IV Medication(s) Provide Access for Blood Provide Access for Emergency Line Insertion Patient Tolerance Tolerated Well Gauge (gauge) 18 Number of Lumens 1 IV Catheter Type Extended Peripheral IV Site Observation Patent Site Observation Intervention Inspected Line Dressing Applied Transparent Dressing Chlorhexidine Gluconate Impregnated Disc Dry/Intact Date Dressing Last Changed 04/20/16 Line Care Saline Flush Securement Device in Place Check Blood Return Labs drawn from Line* No Document 04/23/16 04:25 JCL (Rec: 04/23/16 05:00 [id number]) IV/Invasive Line Assessment Right Upper Arm Basilic Vein Date of Insertion 04/20/16 Time of Insertion 10:08 Insertion Attempts 1 Reason for Line Insertion/Rationale for Replace Lost Fluids Insertion Maintain Electrolyte Balance Provide Access for IV Medication(s) Provide Access for Blood Provide Access for Emergency Line Insertion Patient Tolerance Tolerated Well Gauge (gauge) 18 Number of Lumens 1 IV Catheter Type Extended Peripheral IV Site Observation Patent Site Observation Intervention Inspected Line Dressing Applied Transparent Dressing Chlorhexidine Gluconate Impregnated Disc Dry/Intact Date Dressing Last Changed 04/20/16 Line Care Saline Flush P-Locked Securement Device in Place Check Blood Return Labs drawn from Line* Yes Document 04/23/16 07:30 [facility] (Rec: 04/23/16 09:49 [id number] IV/Invasive Line Assessment Right Upper Arm Basilic Vein Date of Insertion 04/20/16 Time of Insertion 10:08 Insertion Attempts 1 Reason for Line Insertion/Rationale for Replace Lost Fluids Insertion Maintain Electrolyte Balance Provide Access for IV Medication(s) Provide Access for Blood Provide Access for Emergency Line Insertion Patient Tolerance Tolerated Well Gauge (gauge) 18 Number of Lumens 1 IV Catheter Type Extended Peripheral IV Site Observation Patent Site Observation Intervention Inspected Line Dressing Applied Transparent Dressing Chlorhexidine Gluconate Impregnated Disc Dry/Intact Date Dressing Last Changed 04/20/16 Line Care Saline Flush P-Locked Securement Device in Place Check Blood Return Labs drawn from Line* No Document 04/23/16 11:15 [facility] (Rec: 04/23/16 12:30 [id number] IV/Invasive Line Assessment Right Upper Arm Basilic Vein Date of Insertion 04/20/16 Time of Insertion 10:08 Insertion Attempts 1 Reason for Line Insertion/Rationale for Replace Lost Fluids Insertion Maintain Electrolyte Balance Provide Access for IV Medication(s) Provide Access for Blood Provide Access for Emergency Line Insertion Patient Tolerance Tolerated Well Gauge (gauge) 18 Number of Lumens 1 IV Catheter Type Extended Peripheral IV Site Observation Patent Site Observation Intervention Inspected Line Dressing Applied Transparent Dressing Chlorhexidine Gluconate Impregnated Disc Dry/Intact Date Dressing Last Changed 04/20/16 Line Care Saline Flush P-Locked Securement Device in Place Check Blood Return Document 04/23/16 15:45 LJS (Rec: 04/23/16 15:51 [facility] [id number]) IV/Invasive Line Assessment Right Upper Arm Basilic Vein Date of Insertion 04/20/16 Time of Insertion 10:08 Insertion Attempts 1 Reason for Line Insertion/Rationale for Replace Lost Fluids Insertion Maintain Electrolyte Balance Provide Access for IV Medication(s) Provide Access for Blood Provide Access for Emergency Line Insertion Patient Tolerance Tolerated Well Gauge (gauge) 18 Number of Lumens 1 IV Catheter Type Extended Peripheral IV Site Observation Patent Site Observation Intervention Inspected Line Dressing Applied Transparent Dressing Chlorhexidine Gluconate Impregnated Disc Dry/Intact Date Dressing Last Changed 04/20/16 Line Care Saline Flush P-Locked Securement Device in Place Check Blood Return Document 04/23/16 19:48 JCL (Rec: 04/23/16 21:11 [id number] [id number]) IV/Invasive Line Assessment Right Upper Arm Basilic Vein Date of Insertion 04/20/16 Time of Insertion 10:08 Insertion Attempts 1 Reason for Line Insertion/Rationale for Replace Lost Fluids Insertion Maintain Electrolyte Balance Provide Access for IV Medication(s) Provide Access for Blood Provide Access for Emergency Line Insertion Patient Tolerance Tolerated Well Gauge (gauge) 18 Number of Lumens 1 IV Catheter Type Extended Peripheral IV Site Observation Patent Site Observation Intervention Inspected Line Dressing Applied Transparent Dressing Chlorhexidine Gluconate Impregnated Disc Dry/Intact Date Dressing Last Changed 04/20/16 Line Care Saline Flush Securement Device in Place Check Blood Return Condition of IV Line Removed . IV Line Removal Patient Tolerance Bleeding Controlled Education Completed Labs drawn from Line* No Document 04/23/16 23:54 JCL (Rec: 04/24/16 00:49 [id number]) IV/Invasive Line Assessment Right Upper Arm Basilic Vein Date of Insertion 04/20/16 Time of Insertion 10:08 Insertion Attempts 1 Reason for Line Insertion/Rationale for Replace Lost Fluids Insertion Maintain Electrolyte Balance Provide Access for IV Medication(s) Provide Access for Blood Provide Access for Emergency Line Insertion Patient Tolerance Tolerated Well Gauge (gauge) 18 Number of Lumens 1 IV Catheter Type Extended Peripheral IV Site Observation Patent Site Observation Intervention Inspected Line Dressing Applied Transparent Dressing Chlorhexidine Gluconate Impregnated Disc Dry/Intact Date Dressing Last Changed 04/20/16 Line Care Securement Device in Place Labs drawn from Line* No Document 04/24/16 03:37 JCL (Rec: 04/24/16 04:57 [id number] [id number]) IV/Invasive Line Assessment Right Upper Arm Basilic Vein Date of Insertion 04/20/16 Time of Insertion 10:08 Insertion Attempts 1 Reason for Line Insertion/Rationale for Replace Lost Fluids Insertion Maintain Electrolyte Balance Provide Access for IV Medication(s) Provide Access for Blood Provide Access for Emergency Line Insertion Patient Tolerance Tolerated Well Gauge (gauge) 18 Number of Lumens 1 IV Catheter Type Extended Peripheral IV Site Observation Patent Site Observation Intervention Inspected Line Dressing Applied Transparent Dressing Chlorhexidine Gluconate Impregnated Disc Dry/Intact Date Dressing Last Changed 04/20/16 Line Care Saline Flush Securement Device in Place Check Blood Return Condition of IV Line Removed . Labs drawn from Line* Yes Document 04/24/16 10:37 [id number] (Rec: 04/24/16 10:40 [id number]) IV/Invasive Line Assessment Right Upper Arm Basilic Vein Date of Insertion 04/20/16 Time of Insertion 10:08 Insertion Attempts 1 Reason for Line Insertion/Rationale for Replace Lost Fluids Insertion Maintain Electrolyte Balance Provide Access for IV Medication(s) Provide Access for Blood Provide Access for Emergency Line Insertion Patient Tolerance Tolerated Well Gauge (gauge) 18 Number of Lumens 1 IV Catheter Type Extended Peripheral IV Site Observation Patent Site Observation Intervention Inspected Line Dressing Applied Transparent Dressing Chlorhexidine Gluconate Impregnated Disc Dry/Intact Date Dressing Last Changed 04/20/16 Line Care Saline Flush Securement Device in Place Check Blood Return Condition of IV Line Removed . Labs drawn from Line* Yes Document 04/24/16 15:28 RKS (Rec: 04/24/16 15:35 RKS [id number]) IV/Invasive Line Assessment Right Upper Arm Basilic Vein Date of Insertion 04/20/16 Time of Insertion 10:08 Insertion Attempts 1 Reason for Line Insertion/Rationale for Replace Lost Fluids Insertion Maintain Electrolyte Balance Provide Access for IV Medication(s) Provide Access for Blood Provide Access for Emergency Line Insertion Patient Tolerance Tolerated Well Gauge (gauge) 18 Number of Lumens 1 IV Catheter Type Extended Peripheral IV Site Observation Patent Site Observation Intervention Inspected Line Dressing Applied Transparent Dressing Chlorhexidine Gluconate Impregnated Disc Dry/Intact Date Dressing Last Changed 04/20/16 Line Care Saline Flush Securement Device in Place Check Blood Return Condition of IV Line Removed . Labs drawn from Line* Yes Document 04/24/16 19:36 JCL (Rec: 04/24/16 21:43 [id number] [id number]) IV/Invasive Line Assessment Right Upper Arm Basilic Vein Date of Insertion 04/20/16 Time of Insertion 10:08 Insertion Attempts 1 Reason for Line Insertion/Rationale for Replace Lost Fluids Insertion Maintain Electrolyte Balance Provide Access for IV Medication(s) Provide Access for Blood Provide Access for Emergency Line Insertion Patient Tolerance Tolerated Well Gauge (gauge) 18 Number of Lumens 1 IV Catheter Type Extended Peripheral IV Site Observation Patent Site Observation Intervention Inspected Line Dressing Applied Transparent Dressing Chlorhexidine Gluconate Impregnated Disc Dry/Intact Date Dressing Last Changed 04/20/16 Line Care Saline Flush Securement Device in Place Check Blood Return Labs drawn from Line* No Document 04/24/16 23:57 JCL (Rec: 04/25/16 01:00 [id number] [id number]) IV/Invasive Line Assessment Right Upper Arm Basilic Vein Date of Insertion 04/20/16 Time of Insertion 10:08 Insertion Attempts 1 Reason for Line Insertion/Rationale for Replace Lost Fluids Insertion Maintain Electrolyte Balance Provide Access for IV Medication(s) Provide Access for Blood Provide Access for Emergency Line Insertion Patient Tolerance Tolerated Well Gauge (gauge) 18 Number of Lumens 1 IV Catheter Type Extended Peripheral IV Site Observation Patent Site Observation Intervention Inspected Line Dressing Applied Transparent Dressing Chlorhexidine Gluconate Impregnated Disc Dry/Intact Date Dressing Last Changed 04/20/16 Line Care Securement Device in Place Labs drawn from Line* No Document 04/25/16 03:57 JCL (Rec: 04/25/16 05:42 [id number] [id number]) IV/Invasive Line Assessment Right Upper Arm Basilic Vein Date of Insertion 04/20/16 Time of Insertion 10:08 Insertion Attempts 1 Reason for Line Insertion/Rationale for Replace Lost Fluids Insertion Maintain Electrolyte Balance Provide Access for IV Medication(s) Provide Access for Blood Provide Access for Emergency Line Insertion Patient Tolerance Tolerated Well Gauge (gauge) 18 Number of Lumens 1 IV Catheter Type Extended Peripheral IV Site Observation Patent Site Observation Intervention Inspected Line Dressing Applied Transparent Dressing Chlorhexidine Gluconate Impregnated Disc Dry/Intact Date Dressing Last Changed 04/20/16 Line Care Saline Flush Securement Device in Place Check Blood Return Condition of IV Line Removed . Labs drawn from Line* Yes Document 04/25/16 10:35 JOYCE (Rec: 04/25/16 11:59 JOYCE [id number]) IV/Invasive Line Assessment Right Upper Arm Basilic Vein Date of Insertion 04/20/16 Time of Insertion 10:08 Insertion Attempts 1 Reason for Line Insertion/Rationale for Replace Lost Fluids Insertion Maintain Electrolyte Balance Provide Access for IV Medication(s) Provide Access for Blood Provide Access for Emergency Line Insertion Patient Tolerance Tolerated Well Gauge (gauge) 18 Number of Lumens 1 IV Catheter Type Extended Peripheral IV Site Observation Patent Site Observation Intervention Inspected Line Dressing Applied Transparent Dressing Chlorhexidine Gluconate Impregnated Disc Dry/Intact Date Dressing Last Changed 04/20/16 Line Care Saline Flush Securement Device in Place Check Blood Return Labs drawn from Line* No Document 04/25/16 12:15 JOYCE (Rec: 04/25/16 13:39 JOYCE [id number]) IV/Invasive Line Assessment Right Upper Arm Basilic Vein Date of Insertion 04/20/16 Time of Insertion 10:08 Insertion Attempts 1 Reason for Line Insertion/Rationale for Replace Lost Fluids Insertion Maintain Electrolyte Balance Provide Access for IV Medication(s) Provide Access for Blood Provide Access for Emergency Line Insertion Patient Tolerance Tolerated Well Gauge (gauge) 18 Number of Lumens 1 IV Catheter Type Extended Peripheral IV Site Observation Patent Site Observation Intervention Inspected Line Dressing Applied Transparent Dressing Chlorhexidine Gluconate Impregnated Disc Dry/Intact Date Dressing Last Changed 04/20/16 Line Care Securement Device in Place Check Blood Return Labs drawn from Line* Yes Document 04/25/16 16:35 JOYCE (Rec: 04/25/16 18:16 JOYCE [id number]) IV/Invasive Line Assessment Right Upper Arm Basilic Vein Date of Insertion 04/20/16 Time of Insertion 10:08 Insertion Attempts 1 Reason for Line Insertion/Rationale for Replace Lost Fluids Insertion Maintain Electrolyte Balance Provide Access for IV Medication(s) Provide Access for Blood Provide Access for Emergency Line Insertion Patient Tolerance Tolerated Well Gauge (gauge) 18 Number of Lumens 1 IV Catheter Type Extended Peripheral IV Site Observation Patent Site Observation Intervention Inspected Line Dressing Applied Transparent Dressing Chlorhexidine Gluconate Impregnated Disc Dry/Intact Date Dressing Last Changed 04/20/16 Line Care Securement Device in Place Check Blood Return Labs drawn from Line* Yes Document 04/25/16 19:44 JCL (Rec: 04/25/16 21:21 [id number]) IV/Invasive Line Assessment Right Upper Arm Basilic Vein Date of Insertion 04/20/16 Time of Insertion 10:08 Insertion Attempts 1 Reason for Line Insertion/Rationale for Replace Lost Fluids Insertion Maintain Electrolyte Balance Provide Access for IV Medication(s) Provide Access for Blood Provide Access for Emergency Line Insertion Patient Tolerance Tolerated Well Gauge (gauge) 18 Number of Lumens 1 IV Catheter Type Extended Peripheral IV Site Observation Patent Site Observation Intervention Inspected Line Dressing Applied Transparent Dressing Chlorhexidine Gluconate Impregnated Disc Dry/Intact Date Dressing Last Changed 04/20/16 Line Care Saline Flush Securement Device in Place Check Blood Return Condition of IV Line Removed . Labs drawn from Line* No Document 04/25/16 23:45 JCL (Rec: 04/26/16 00:28 JCL [id number]) IV/Invasive Line Assessment Right Upper Arm Basilic Vein Date of Insertion 04/20/16 Time of Insertion 10:08 Insertion Attempts 1 Reason for Line Insertion/Rationale for Replace Lost Fluids Insertion Maintain Electrolyte Balance Provide Access for IV Medication(s) Provide Access for Blood Provide Access for Emergency Line Insertion Patient Tolerance Tolerated Well Gauge (gauge) 18 Number of Lumens 1 IV Catheter Type Extended Peripheral IV Site Observation Patent Site Observation Intervention Inspected Line Dressing Applied Transparent Dressing Chlorhexidine Gluconate Impregnated Disc Dry/Intact Date Dressing Last Changed 04/20/16 Line Care Securement Device in Place Labs drawn from Line* No Document 04/26/16 03:47 JCL (Rec: 04/26/16 05:02 JCL [id number]) IV/Invasive Line Assessment Right Upper Arm Basilic Vein Date of Insertion 04/20/16 Time of Insertion 10:08 Insertion Attempts 1 Reason for Line Insertion/Rationale for Replace Lost Fluids Insertion Maintain Electrolyte Balance Provide Access for IV Medication(s) Provide Access for Blood Provide Access for Emergency Line Insertion Patient Tolerance Tolerated Well Gauge (gauge) 18 Number of Lumens 1 IV Catheter Type Extended Peripheral IV Site Observation Patent Site Observation Intervention Inspected Line Dressing Applied Transparent Dressing Chlorhexidine Gluconate Impregnated Disc Dry/Intact Date Dressing Last Changed 04/20/16 Line Care Saline Flush Securement Device in Place Check Blood Return Labs drawn from Line* Yes Document 04/26/16 07:00 JOYCE (Rec: 04/26/16 13:23 JOYCE [id number]) IV/Invasive Line Assessment Right Upper Arm Basilic Vein Date of Insertion 04/20/16 Time of Insertion 10:08 Insertion Attempts 1 Reason for Line Insertion/Rationale for Replace Lost Fluids Insertion Maintain Electrolyte Balance Provide Access for IV Medication(s) Provide Access for Blood Provide Access for Emergency Comment NS at 60 ml/hr Line Insertion Patient Tolerance Tolerated Well Gauge (gauge) 18 Number of Lumens 1 IV Catheter Type Extended Peripheral IV Site Observation Patent Site Observation Intervention Inspected Line Dressing Applied Transparent Dressing Chlorhexidine Gluconate Impregnated Disc Dry/Intact Date Dressing Last Changed 04/20/16 Line Care Saline Flush Securement Device in Place Check Blood Return Labs drawn from Line* No Document 04/26/16 08:33 KMS (Rec: 04/26/16 08:34 KMS [id number]) IV/Invasive Line Assessment Right Upper Arm Basilic Vein Date of Insertion 04/20/16 Time of Insertion 10:08 Insertion Attempts 1 Reason for Line Insertion/Rationale for Replace Lost Fluids Insertion Maintain Electrolyte Balance Provide Access for IV Medication(s) Provide Access for Blood Provide Access for Emergency Comment NS at 60 ml/hr Line Insertion Patient Tolerance Tolerated Well Gauge (gauge) 18 Number of Lumens 1 IV Catheter Type Extended Peripheral IV Site Observation Patent Site Observation Intervention Inspected Line Dressing Applied Transparent Dressing Chlorhexidine Gluconate Impregnated Disc Dry/Intact Date Dressing Last Changed 04/20/16 Line Care Saline Flush Securement Device in Place Check Blood Return Labs drawn from Line* Yes Document 04/26/16 12:10 JOYCE (Rec: 04/26/16 13:31 JOYCE [id number]) IV/Invasive Line Assessment Right Upper Arm Basilic Vein Date of Insertion 04/20/16 Time of Insertion 10:08 Insertion Attempts 1 Reason for Line Insertion/Rationale for Replace Lost Fluids Insertion Maintain Electrolyte Balance Provide Access for IV Medication(s) Provide Access for Blood Provide Access for Emergency Line Insertion Patient Tolerance Tolerated Well Gauge (gauge) 18 Number of Lumens 1 IV Catheter Type Extended Peripheral IV Site Observation Patent Site Observation Intervention Inspected Line Dressing Applied Transparent Dressing Chlorhexidine Gluconate Impregnated Disc Dry/Intact Date Dressing Last Changed 04/20/16 Line Care Saline Flush Securement Device in Place Check Blood Return Labs drawn from Line* Yes Document 04/26/16 16:20 JOYCE (Rec: 04/26/16 18:29 JOYCE [id number]) IV/Invasive Line Assessment Right Upper Arm Basilic Vein Date of Insertion 04/20/16 Time of Insertion 10:08 Insertion Attempts 1 Reason for Line Insertion/Rationale for Replace Lost Fluids Insertion Maintain Electrolyte Balance Provide Access for IV Medication(s) Provide Access for Blood Provide Access for Emergency Line Insertion Patient Tolerance Tolerated Well Gauge (gauge) 18 Number of Lumens 1 IV Catheter Type Extended Peripheral IV Site Observation Patent Site Observation Intervention Inspected Line Dressing Applied Transparent Dressing Chlorhexidine Gluconate Impregnated Disc Dry/Intact Date Dressing Last Changed 04/20/16 Line Care Securement Device in Place Check Blood Return Labs drawn from Line* Yes Document 04/26/16 19:36 JCL (Rec: 04/26/16 23:24 JCL [id number]) IV/Invasive Line Assessment Right Upper Arm Basilic Vein Date of Insertion 04/20/16 Time of Insertion 10:08 Insertion Attempts 1 Reason for Line Insertion/Rationale for Replace Lost Fluids Insertion Maintain Electrolyte Balance Provide Access for IV Medication(s) Provide Access for Blood Provide Access for Emergency Line Insertion Patient Tolerance Tolerated Well Gauge (gauge) 18 Number of Lumens 1 IV Catheter Type Extended Peripheral IV Site Observation Patent Site Observation Intervention Inspected Line Dressing Applied Transparent Dressing Chlorhexidine Gluconate Impregnated Disc Dry/Intact Date Dressing Last Changed 04/20/16 Line Care Saline Flush P-Locked Securement Device in Place Check Blood Return Labs drawn from Line* No Document 04/26/16 23:44 JCL (Rec: 04/27/16 01:46 JCL [id number]) IV/Invasive Line Assessment Right Upper Arm Basilic Vein Date of Insertion 04/20/16 Time of Insertion 10:08 Insertion Attempts 1 Reason for Line Insertion/Rationale for Replace Lost Fluids Insertion Maintain Electrolyte Balance Provide Access for IV Medication(s) Provide Access for Blood Provide Access for Emergency Line Insertion Patient Tolerance Tolerated Well Gauge (gauge) 18 Number of Lumens 1 IV Catheter Type Extended Peripheral IV Site Observation Patent Site Observation Intervention Inspected Line Dressing Applied Transparent Dressing Chlorhexidine Gluconate Impregnated Disc Dry/Intact Date Dressing Last Changed 04/20/16 Line Care Saline Flush P-Locked Securement Device in Place Check Blood Return Labs drawn from Line* No Document 04/27/16 04:16 JCL (Rec: 04/27/16 05:32 JCL [id number]) IV/Invasive Line Assessment Right Upper Arm Basilic Vein Date of Insertion 04/20/16 Time of Insertion 10:08 Insertion Attempts 1 Reason for Line Insertion/Rationale for Replace Lost Fluids Insertion Maintain Electrolyte Balance Provide Access for IV Medication(s) Provide Access for Blood Provide Access for Emergency Line Insertion Patient Tolerance Tolerated Well Gauge (gauge) 18 Number of Lumens 1 IV Catheter Type Extended Peripheral IV Site Observation Patent Site Observation Intervention Inspected Line Dressing Applied Transparent Dressing Chlorhexidine Gluconate Impregnated Disc Dry/Intact Date Dressing Last Changed 04/20/16 Line Care Saline Flush P-Locked Securement Device in Place Check Blood Return Labs drawn from Line* Yes Document 04/27/16 07:45 KMS (Rec: 04/27/16 20:41 KMS [id number]) IV/Invasive Line Assessment Right Upper Arm Basilic Vein Date of Insertion 04/20/16 Time of Insertion 10:08 Insertion Attempts 1 Reason for Line Insertion/Rationale for Replace Lost Fluids Insertion Maintain Electrolyte Balance Provide Access for IV Medication(s) Provide Access for Blood Provide Access for Emergency Comment p-locked Line Insertion Patient Tolerance Tolerated Well Gauge (gauge) 18 Number of Lumens 1 IV Catheter Type Extended Peripheral IV Site Observation Patent Site Observation Intervention Inspected Line Dressing Applied Transparent Dressing Securement Device/Sutures Intact Chlorhexidine Gluconate Impregnated Disc Dry/Intact Date Dressing Last Changed 04/20/16 Line Care Saline Flush P-Locked Labs drawn from Line* No Document 04/27/16 08:00 KMS (Rec: 04/27/16 08:01 KMS [id number]) IV/Invasive Line Assessment Right Upper Arm Basilic Vein Date of Insertion 04/20/16 Time of Insertion 10:08 Insertion Attempts 1 Reason for Line Insertion/Rationale for Replace Lost Fluids Insertion Maintain Electrolyte Balance Provide Access for IV Medication(s) Provide Access for Blood Provide Access for Emergency Comment p-locked Line Insertion Patient Tolerance Tolerated Well Gauge (gauge) 18 Number of Lumens 1 IV Catheter Type Extended Peripheral IV Site Observation Patent Site Observation Intervention Inspected Line Dressing Applied Transparent Dressing Securement Device/Sutures Intact Chlorhexidine Gluconate Impregnated Disc Dry/Intact Date Dressing Last Changed 04/20/16 Line Care Saline Flush P-Locked Securement Device in Place Check Blood Return Labs drawn from Line* No Document 04/27/16 12:08 KMS (Rec: 04/27/16 20:46 KMS [id number]) IV/Invasive Line Assessment Right Upper Arm Basilic Vein Date of Insertion 04/20/16 Time of Insertion 10:08 Insertion Attempts 1 Reason for Line Insertion/Rationale for Replace Lost Fluids Insertion Maintain Electrolyte Balance Provide Access for IV Medication(s) Provide Access for Blood Provide Access for Emergency Comment p-locked Line Insertion Patient Tolerance Tolerated Well Gauge (gauge) 18 Number of Lumens 1 IV Catheter Type Extended Peripheral IV Site Observation Patent Site Observation Intervention Inspected Line Dressing Applied Transparent Dressing Securement Device/Sutures Intact Chlorhexidine Gluconate Impregnated Disc Dry/Intact Date Dressing Last Changed 04/20/16 Line Care Saline Flush P-Locked Securement Device in Place Check Blood Return Labs drawn from Line* Yes Document 04/27/16 17:00 KMS (Rec: 04/27/16 21:00 KMS [id number]) IV/Invasive Line Assessment Right Upper Arm Basilic Vein Date of Insertion 04/20/16 Time of Insertion 10:08 Insertion Attempts 1 Reason for Line Insertion/Rationale for Replace Lost Fluids Insertion Maintain Electrolyte Balance Provide Access for IV Medication(s) Provide Access for Blood Provide Access for Emergency Comment p-locked Line Insertion Patient Tolerance Tolerated Well Gauge (gauge) 18 Number of Lumens 1 IV Catheter Type Extended Peripheral IV Site Observation Patent Site Observation Intervention Inspected Line Dressing Applied Transparent Dressing Securement Device/Sutures Intact Chlorhexidine Gluconate Impregnated Disc Dry/Intact Date Dressing Last Changed 04/20/16 Line Care Saline Flush P-Locked Labs drawn from Line* No Document 04/27/16 19:45 JKB (Rec: 04/27/16 21:14 JKB [id number]) IV/Invasive Line Assessment Right Upper Arm Basilic Vein Date of Insertion 04/20/16 Time of Insertion 10:08 Insertion Attempts 1 Reason for Line Insertion/Rationale for Replace Lost Fluids Insertion Maintain Electrolyte Balance Provide Access for IV Medication(s) Provide Access for Blood Provide Access for Emergency Comment p-locked Line Insertion Patient Tolerance Tolerated Well Gauge (gauge) 18 Number of Lumens 1 IV Catheter Type Extended Peripheral IV Site Observation Patent Site Observation Intervention Inspected Line Dressing Applied Transparent Dressing Securement Device/Sutures Intact Chlorhexidine Gluconate Impregnated Disc Dry/Intact Date Dressing Last Changed 04/20/16 Line Care Saline Flush P-Locked Securement Device in Place Check Blood Return Labs drawn from Line* No Document 04/28/16 08:00 JNG(2) (Rec: 04/28/16 08:58 JNG(2) [id number]) IV/Invasive Line Assessment Right Upper Arm Basilic Vein Date of Insertion 04/20/16 Time of Insertion 10:08 Insertion Attempts 1 Reason for Line Insertion/Rationale for Replace Lost Fluids Insertion Maintain Electrolyte Balance Provide Access for IV Medication(s) Provide Access for Blood Provide Access for Emergency Comment p-locked Line Insertion Patient Tolerance Tolerated Well Gauge (gauge) 18 Number of Lumens 1 IV Catheter Type Extended Peripheral IV Site Observation Patent Site Observation Intervention Inspected Line Dressing Applied Transparent Dressing Securement Device/Sutures Intact Chlorhexidine Gluconate Impregnated Disc Dry/Intact Date Dressing Last Changed 04/20/16 Line Care Saline Flush P-Locked Securement Device in Place Check Blood Return Document 04/28/16 12:00 JNG(2) (Rec: 04/28/16 12:06 JNG(2) [id number]) IV/Invasive Line Assessment Right Upper Arm Basilic Vein Date of Insertion 04/20/16 Time of Insertion 10:08 Insertion Attempts 1 Reason for Line Insertion/Rationale for Replace Lost Fluids Insertion Maintain Electrolyte Balance Provide Access for IV Medication(s) Provide Access for Blood Provide Access for Emergency Comment p-locked Line Insertion Patient Tolerance Tolerated Well Gauge (gauge) 18 Number of Lumens 1 IV Catheter Type Extended Peripheral IV Site Observation Patent Site Observation Intervention Inspected Line Dressing Applied Transparent Dressing Securement Device/Sutures Intact Chlorhexidine Gluconate Impregnated Disc Dry/Intact Date Dressing Last Changed 04/20/16 Line Care Saline Flush P-Locked Securement Device in Place Check Blood Return Document 04/28/16 15:53 JNG(2) (Rec: 04/28/16 15:57 JNG(2) [id number]) IV/Invasive Line Assessment Right Upper Arm Basilic Vein Date of Insertion 04/20/16 Time of Insertion 10:08 Insertion Attempts 1 Reason for Line Insertion/Rationale for Replace Lost Fluids Insertion Maintain Electrolyte Balance Provide Access for IV Medication(s) Provide Access for Blood Provide Access for Emergency Comment p-locked Line Insertion Patient Tolerance Tolerated Well Gauge (gauge) 18 Number of Lumens 1 IV Catheter Type Extended Peripheral IV Site Observation Patent Site Observation Intervention Inspected Line Dressing Applied Transparent Dressing Securement Device/Sutures Intact Chlorhexidine Gluconate Impregnated Disc Dry/Intact Date Dressing Last Changed 04/20/16 Line Care Saline Flush P-Locked Securement Device in Place Check Blood Return Labs drawn from Line* No Document 04/28/16 19:57 JKB (Rec: 04/28/16 20:22 JKB [id number]) IV/Invasive Line Assessment Right Upper Arm Basilic Vein Date of Insertion 04/20/16 Time of Insertion 10:08 Insertion Attempts 1 Reason for Line Insertion/Rationale for Replace Lost Fluids Insertion Maintain Electrolyte Balance Provide Access for IV Medication(s) Provide Access for Blood Provide Access for Emergency Comment p-locked Gauge (gauge) 18 Number of Lumens 1 IV Catheter Type Extended Peripheral IV Site Observation Patent Site Observation Intervention Inspected Line Dressing Applied Transparent Dressing Securement Device/Sutures Intact Chlorhexidine Gluconate Impregnated Disc Dry/Intact Date Dressing Last Changed 04/20/16 Line Care Saline Flush P-Locked Securement Device in Place Check Blood Return Labs drawn from Line* No Document 04/29/16 00:40 JKB (Rec: 04/29/16 02:26 JKB [id number]) IV/Invasive Line Assessment Right Upper Arm Basilic Vein Date of Insertion 04/20/16 Time of Insertion 10:08 Insertion Attempts 1 Reason for Line Insertion/Rationale for Replace Lost Fluids Insertion Maintain Electrolyte Balance Provide Access for IV Medication(s) Provide Access for Blood Provide Access for Emergency Comment p-locked Gauge (gauge) 18 Number of Lumens 1 IV Catheter Type Extended Peripheral IV Site Observation Patent Site Observation Intervention Inspected Line Dressing Applied Transparent Dressing Securement Device/Sutures Intact Chlorhexidine Gluconate Impregnated Disc Dry/Intact Date Dressing Last Changed 04/20/16 Line Care Saline Flush P-Locked Securement Device in Place Check Blood Return Condition of IV Line Removed . Labs drawn from Line* No Document 04/29/16 03:20 JKB (Rec: 04/29/16 06:36 JKB [id number]) IV/Invasive Line Assessment Right Upper Arm Basilic Vein Date of Insertion 04/20/16 Time of Insertion 10:08 Insertion Attempts 1 Reason for Line Insertion/Rationale for Replace Lost Fluids Insertion Maintain Electrolyte Balance Provide Access for IV Medication(s) Provide Access for Blood Provide Access for Emergency Comment p-locked Gauge (gauge) 18 Number of Lumens 1 IV Catheter Type Extended Peripheral IV Site Observation Patent Site Observation Intervention Inspected Line Dressing Applied Transparent Dressing Securement Device/Sutures Intact Chlorhexidine Gluconate Impregnated Disc Dry/Intact Date Dressing Last Changed 04/20/16 Line Care Saline Flush P-Locked Securement Device in Place Check Blood Return Labs drawn from Line* No Document 04/29/16 07:00 JNG(2) (Rec: 04/29/16 08:59 JNG(2) [id number]) IV/Invasive Line Assessment Right Upper Arm Basilic Vein Date of Insertion 04/20/16 Time of Insertion 10:08 Insertion Attempts 1 Reason for Line Insertion/Rationale for Replace Lost Fluids Insertion Maintain Electrolyte Balance Provide Access for IV Medication(s) Provide Access for Blood Provide Access for Emergency Comment p-locked Gauge (gauge) 18 Number of Lumens 1 IV Catheter Type Extended Peripheral IV Site Observation Patent Site Observation Intervention Inspected Line Dressing Applied Transparent Dressing Securement Device/Sutures Intact Chlorhexidine Gluconate Impregnated Disc Dry/Intact Date Dressing Last Changed 04/20/16 Line Care Saline Flush P-Locked Securement Device in Place Check Blood Return Document 04/29/16 11:00 JNG(2) (Rec: 04/29/16 12:40 JNG(2) [id number]) IV/Invasive Line Assessment Right Upper Arm Basilic Vein Date of Insertion 04/20/16 Time of Insertion 10:08 Insertion Attempts 1 Reason for Line Insertion/Rationale for Replace Lost Fluids Insertion Maintain Electrolyte Balance Provide Access for IV Medication(s) Provide Access for Blood Provide Access for Emergency Comment p-locked Gauge (gauge) 18 Number of Lumens 1 IV Catheter Type Extended Peripheral IV Site Observation Patent Site Observation Intervention Inspected Line Dressing Applied Transparent Dressing Securement Device/Sutures Intact Chlorhexidine Gluconate Impregnated Disc Dry/Intact Date Dressing Last Changed 04/20/16 Line Care Saline Flush P-Locked Securement Device in Place Check Blood Return Labs drawn from Line* Yes IV-Invasive Line Management Start: 04/20/16 10: 06 Freq: QSHIFT Status: Complete Document 04/20/16 07:30 [id number] (Rec: 04/20/16 10:58 [id number]) Document 04/20/16 10:07 MWW (Rec: 04/20/16 10:09 MWW [id number]) IV/Invasive Line Assessment Right Upper Arm Basilic Vein Date of Insertion 04/20/16 Time of Insertion 10:08 Insertion Attempts 1 Reason for Line Insertion/Rationale for Replace Lost Fluids Insertion Maintain Electrolyte Balance Provide Access for IV Medication(s) Provide Access for Blood Provide Access for Emergency Line Insertion Patient Tolerance Tolerated Well Gauge (gauge) 18 Number of Lumens 1 IV Catheter Type Extended Peripheral IV Site Observation Patent Site Observation Intervention [place] IV Inserted Inspected Line Dressing Applied Window Dressing Transparent Dressing Securement Device/Sutures Intact Chlorhexidine Gluconate Impregnated Disc Dry/Intact Date Dressing Last Changed 04/20/16 Line Care Saline Flush P-Locked Securement Device in Place Check Blood Return Labs drawn from Line* Yes Initial Patient Assessment Start: 04/19/16 23: 58 Freq: .ONCE Status: Complete Document 04/19/16 23:59 KORIN (Rec: 04/20/16 00:15 KORIN [id number]) General Questions Date of Arrival on Unit 04/19/16 Time of Arrival on Unit 23:45 Admitted From Emergency Dept Chief Complaint altered mental status Onset of Chief Complaint 04/19/16 History Provided By Family Member Orientation To Call Light Bed Phone TV Bathroom ID Bracelet On Emergency Contact Name karissa spencer Relationship to Patient granddtr. Emergency Contact Phone Number [phone] Bands applied ID band Allergy band Patient Health Portal Patient was provided information on Yes accessing patient portal Patient Requests Portal Enrollment No Reason No Portal Enrollment Patient Declines Other Reason granddaughter declines Malnutrition Screening Tool (MST) Have You Recently Lost Weight Without No Trying Advance Directives Advance Directives No Advance Directives Information Provided Yes Advance Directives on File No Patient Rights Copy of Rights Given and Verbalizes Yes Understanding Incapacitated Patient Copy of Rights karissa spencer granddtr. 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 No Ability to Follow Directions Poor/Unable Able to Read Yes Able to Write Yes Communication Tools None Caregiver Communication Skills Unable To Follow Commands Impairment Learning Preferences Written Discussion Hearing Ability Normal Visual Assistive Devices None Pain Assessment Do You Have Any Ongoing (Chronic) Pain Yes Problems What treatment or medications are you norco, tramadol prn receiving for pain management Educated on Pain Scale Yes Past Medical History Medical history arthritis asthma DVT diabetes hyperlipidemia hypertension myocardial infarction peripheral artery disease Female Surgical History carotid endarterectomy cholecystectomy orthopedic, other other Psychiatric history anxiety depression Smoking Status Former smoker Smokeless Tobacco Status No Alcohol use none Drug use none Occupational status disabled Current living situation ECF Activity level Wheelchair bound Recent Out of Country Travel Within the No Last 8 Weeks Exposure or Possible Exposure to Illness No During Travel Additional social history RECENT MOVE TO [facility] FROM HOME APPROXIMATELY 2 WEEKS AGO PER [facility] REPORT. Family History-Meaningful Use Son Adopted [place] Age (years of age) 32 Race Ethnicity Non- Living Status Age at 32 Cause of CHF Hx Family Cardiac Disorders Yes Hx Family Respiratory Disorders No Hx Family Cancer Yes: MOTHER, GRANDDAUGHTERS X 2 Hx Family GI Disorders No Hx Family Genitourinary Disorders Yes Hx Family Endocrine Disorder Yes Hx Family Musculoskeletal Disorders No Hx Family Neuromuscular Disorders No Hx Family Neurologic Disorders No Hx Family HEENT Disorders No Hx Family Autoimmune Disorders Yes Hx Family Reproductive Disorders No Hx Family Psychosocial Disorders Yes Hx Family Medical Disorders Yes Spiritual Needs [facility] [employer]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 Beliefs That N/A Effect Care Customs or Cultural Practices That May N/A Affect Care Psychosocial Over Age 75 and Lives Alone or Over Age No 80 Potential Need for Follow-up Care (ECF, Yes Home Health, ECT) Developmentally Disabled or History of No Mental Health Problems Diagnosis with Hydroblaster Need or Yes Terminal Implications Responsible for Care of Others No Financial Concerns No Suspected Abuse or Neglect No Suicidal or Homicidal Ideation No Social Service Consult Needed Yes Functional Assessment Employment Status Disabled - physical Community Services Used Prior to Home Health Care Services Admission Eating (Feeding) Ability Maximum Assistance Bathing Ability Maximum Assistance 2 Person Assist Upper Body Dressing Ability Total Assistance Lower Body Dressing Ability Total Assistance Ambulation Ability Total Assistance Toileting Ability Total Assistance Bladder Incontinent Bowel Incontinent Normal Bowel Pattern UNKNOWN Intake and Output, Strict Start: 04/19/16 23: 58 Freq: Q8H Status: Discharge Document 04/20/16 07:30 [id number] (Rec: 04/20/16 10:58 [facility] [id number]) Intake and Output Intake, Oral Amount 0 Urine Color Dark Yellow Stool Size Smear Stool Consistency soft Stool Characteristics Normal for Patient Stool Color Brown Document 04/20/16 16:00 [id number] (Rec: 04/20/16 18:33 [id number]) Intake and Output Intake, Oral Amount 0 Catheter 650 Urine Color Yellow Brown Document 04/21/16 07:30 [id number] (Rec: 04/21/16 07:[id number]) Intake and Output Intake, Oral Amount 0 Catheter 0 Urine Color Bright Yellow Document 04/21/16 11:30 [id number] (Rec: 04/21/16 14:03 [id number]) Intake and Output Intake, Oral Amount 120 Document 04/21/16 16:00 [id number] (Rec: 04/21/16 17:[id number]) Intake and Output Intake, Oral Amount 0 Catheter 350 Urine Color Dark Yellow Stool Size Small Stool Consistency soft Stool Characteristics Normal for Patient Stool Color Brown Document 04/21/16 23:53 TNM (Rec: 04/21/16 23:58 TNM [id number]) Intake and Output Catheter 200 Urine Color Dark Yellow Document 04/22/16 08:00 LJS (Rec: 04/22/16 10:42 LJS [id number]) Intake and Output Intake, Oral Amount 0 Output, Urine Amount 0 Document 04/22/16 11:45 LJS (Rec: 04/22/16 12:32 LJS [id number]) Intake and Output Intake, Oral Amount 0 Document 04/22/16 15:22 [id number] (Rec: 04/22/16 15:23 [id number]) Intake and Output Intake, Oral Amount 120 Meal Lunch Percent of Meal Consumed 5% Oral Supplements* None Document 04/22/16 19:17 JNG (Rec: 04/22/16 19:18 JNG [id number]) Intake and Output Intake, Oral Amount 0 Catheter 225 Urine Color Dark Reene Document 04/22/16 20:20 JCL (Rec: 04/22/16 22:11 JCL [id number]) Intake and Output Intake, Oral Amount 300 Document 04/22/16 23:42 JCL (Rec: 04/23/16 01:40 JCL [id number]) Intake and Output Catheter 100 Urine Color Dark Yellow Document 04/23/16 09:16 LE (Rec: 04/23/16 09:16 LE [id number]) Intake and Output Intake, Oral Amount 0 Meal Breakfast Percent of Meal Consumed 0% Oral Supplements* None Document 04/23/16 13:36 LE (Rec: 04/23/16 13:36 LE [id number]) Intake and Output Intake, Oral Amount 0 Meal Lunch Percent of Meal Consumed 0% Oral Supplements* None Document 04/23/16 16:10 LJS (Rec: 04/23/16 16:10 LJS [id number]) Intake and Output Catheter 150 Document 04/23/16 17:55 LE (Rec: 04/23/16 17:55 LE [id number]) Intake and Output Intake, Oral Amount 0 Meal Dinner Percent of Meal Consumed 0% Oral Supplements* None Document 04/23/16 19:48 JCL (Rec: 04/23/16 21:11 JCL [id number]) Intake and Output Catheter 50 Urine Color Straw Document 04/23/16 23:54 JCL (Rec: 04/24/16 00:49 JCL [id number]) Intake and Output Intake, Oral Amount 350 Catheter 50 Urine Color Dark Yellow Document 04/24/16 03:24 JNV (Rec: 04/24/16 03:31 JNV [id number]) Intake and Output Catheter 20 Document 04/24/16 08:58 LE (Rec: 04/24/16 08:58 LE [id number]) Intake and Output Intake, Oral Amount 0 Meal Dinner Percent of Meal Consumed 0% Oral Supplements* None Document 04/24/16 13:34 LE (Rec: 04/24/16 13:35 LE [id number]) Intake and Output Intake, Oral Amount 0 Meal Lunch Percent of Meal Consumed 0% Oral Supplements* None Document 04/24/16 16:09 [id number] (Rec: 04/24/16 16:09 [id number]) Intake and Output Catheter 100 Document 04/24/16 17:52 [id number] (Rec: 04/24/16 17:53 [id number]) Intake and Output Intake, Oral Amount 0 Meal Dinner Percent of Meal Consumed 0% Oral Supplements* None Document 04/24/16 22:11 JNV (Rec: 04/24/16 22:12 JNV [id number]) Intake and Output Intake, Oral Amount 200 Catheter 50 Document 04/24/16 23:57 JCL (Rec: 04/25/16 01:02 JCL [id number]) Intake and Output Catheter 50 Urine Color Dark Yellow Document 04/25/16 03:58 JNV (Rec: 04/25/16 04:03 JNV [id number]) Intake and Output Catheter 50 Urine Color Dark Yellow Document 04/25/16 10:35 JOYCE (Rec: 04/25/16 11:59 JOYCE [id number]) Intake and Output Intake, Oral Amount 240 Percent of Meal Consumed 0% Oral Supplements* None Document 04/25/16 15:26 KMS (Rec: 04/25/16 19:25 KMS [id number]) Intake and Output Intake, Oral Amount 10 Meal Lunch Percent of Meal Consumed 0% Oral Supplements* None Document 04/25/16 19:25 KMS (Rec: 04/25/16 19:25 KMS [id number]) Intake and Output Meal Dinner Percent of Meal Consumed 0% Oral Supplements* None Document 04/25/16 20:03 JNG (Rec: 04/25/16 20:03 JNG [id number]) Intake and Output Intake, Oral Amount 0 Meal Dinner Percent of Meal Consumed 0% Oral Supplements* None Catheter 40 Urine Color Tea Colored Document 04/25/16 23:19 JNG (Rec: 04/25/16 23:22 JNG [id number]) Intake and Output Intake, Oral Amount 0 Catheter 20 Urine Color Dark Renee Document 04/26/16 03:18 JNG (Rec: 04/26/16 03:18 JNG [id number]) Intake and Output Intake, Oral Amount 0 Catheter 20 Urine Color Dark Renee Tea Colored Document 04/26/16 10:13 JOYCE (Rec: 04/26/16 13:23 JOYCE [id number]) Intake and Output Intake, Oral Amount 0 Percent of Meal Consumed 0% Oral Supplements* None Catheter 2 Document 04/26/16 14:59 KMS (Rec: 04/26/16 15:01 KMS [id number]) Intake and Output Meal Lunch Percent of Meal Consumed 0% Oral Supplements* None Document 04/26/16 19:36 JCL (Rec: 04/26/16 23:24 JCL [id number]) Intake and Output Intake, Oral Amount 0 Document 04/26/16 23:55 ANJ (Rec: 04/26/16 23:55 ANJ [id number]) Intake and Output Output, Urine Amount 50 Urine Color Dark Renee Document 04/27/16 03:32 ANJ (Rec: 04/27/16 03:47 ANJ [id number]) Intake and Output Output, Urine Amount 50 Urine Color Dark Renee Document 04/27/16 09:33 APF (Rec: 04/27/16 09:34 APF [id number]) Intake and Output Meal Breakfast Percent of Meal Consumed 0% Oral Supplements* None Document 04/28/16 00:43 JDH (Rec: 04/28/16 00:44 JDH [id number]) Intake and Output Output, Urine Amount 400 Urine Color Dark Yellow Document 04/28/16 09:26 APF (Rec: 04/28/16 09:27 APF [id number]) Intake and Output Meal Breakfast Percent of Meal Consumed 0% Oral Supplements* None Document 04/28/16 13:37 APF (Rec: 04/28/16 13:37 APF [id number]) Intake and Output Meal Lunch Percent of Meal Consumed 0% Oral Supplements* None Document 04/28/16 17:59 APF (Rec: 04/28/16 17:59 APF [id number]) Intake and Output Meal Dinner Percent of Meal Consumed 0% Oral Supplements* None Document 04/28/16 22:02 JNV (Rec: 04/28/16 22:02 JNV [id number]) Intake and Output Output, Urine Amount 100 Urine Color Tea Colored Document 04/29/16 04:31 JDC (Rec: 04/29/16 04:36 JDC [id number]) Intake and Output Catheter 25 Urine Color Tea Colored Document 04/29/16 09:13 MAB (Rec: 04/29/16 09:13 MAB [id number]) Intake and Output Intake, Oral Amount 0 Meal Breakfast Percent of Meal Consumed 0% Oral Supplements* None MAR Blood Glucose Start: 04/24/16 07: 45 Freq: Status: Discharge Document 04/24/16 07:45 CPF (Rec: 04/24/16 07:46 CPF [id number]) MAR Blood Glucose Blood Glucose* 112 May use line for blood draws Start: 04/20/16 08: 48 Freq: .PRN Status: Discharge Document 04/20/16 10:07 MWW (Rec: 04/20/16 10:09 MWW [id number]) May use line for blood draws Start: 04/20/16 10: 06 Freq: .PRN Status: Discharge Document 04/20/16 10:07 MWW (Rec: 04/20/16 10:09 MWW [id number]) Measure intake and output Start: 04/20/16 00: 17 Freq: QSHIFT Status: Complete Document 04/21/16 13:26 MAB (Rec: 04/21/16 13:26 MAB [id number]) Intake and Output Intake, Oral Amount 50 Meal Lunch Percent of Meal Consumed 5% Oral Supplements* None Document 04/21/16 15:14 MAB (Rec: 04/21/16 15:16 MAB [id number]) Intake and Output Intake, Oral Amount 0 Number of Bowel Movement Diapers (0-100) 1 Stool Size Moderate Stool Consistency loose Stool Color Brown Measure weight Start: 04/19/16 23: 58 Freq: Status: Discharge Document 04/20/16 00:01 DKH (Rec: 04/20/16 00:02 DKH [id number]) Height and Weight Height 1.6 m Weight 85.729 kg Weight Measurement Method Built in [facility] Body Mass Index (BMI) 33.46 BMI Classification Obese Obesity Class I Med Rec Tech Start: 04/20/16 11: 07 Freq: Status: Complete Document 04/20/16 11:07 MRB (Rec: 04/20/16 11:07 MRB [id number]) Pharmacy Med Rec Tech Home Medicatons Reconciled? Yes Was this to catch up from previous day Yes Does patient take 10 or more medications Yes ? Does patient request medication No education Do home meds include Coumadin, Xarelto, Yes Pradaxa, Eliquis Added Patient Preferred Pharmacy Yes Verified Allergies Yes Would Patient Like to use [facility] Patient Pharmacy Nursing Dx: Discomfort Start: 04/24/16 09: 53 Freq: Status: Complete Document 04/24/16 09:56 CPF (Rec: 04/24/16 09:57 [facility] Nursing Dx: Discomfort Explain cause of pain Yes Position for comfort Yes Medicate when indicated Yes Outcome Evaluation Met Nursing Dx:Impaired Gas Exchange Start: 04/24/16 09: 53 Freq: Status: Complete Document 04/24/16 09:56 CPF (Rec: 04/24/16 09:57 CPF [email or web address]) PACU Nursing Dx: Gas Exchange Administer oxygen as indicated Yes Position to maintain optimal ventilation Yes Encourage deep breathing exercises Yes Outcome Evaluation Met Nursing Dx:PACU Hypothermia Start: 04/24/16 09: 53 Freq: Status: Complete Document 04/24/16 09:56 CPF (Rec: 04/24/16 09:57 CPF [email or web address]) PACU Nursing Dx:Hypothermia Monitor patients temperature upon Yes arrival to PACU, after 30 mins., and upon discharge from PACU. Warm blankets will be used to warm Yes patient. Use milagros hugger for temperature less Yes than 96.8F Outcome Evaluation Met OP Nursing Dx: Injury Start: 04/24/16 08: 34 Freq: Status: Complete Document 04/24/16 08:34 GENOVEVA (Rec: 04/24/16 08:34 GENOVEVA [email or web address]) Op Nursing Dx:Injury ESU electrode appropriate size for Yes patient ESU electrode not placed over bony Yes prominences, metal implants, or tattoos ESU electrode placed on patient after Yes final positioning ESU electrode is free of pooling Yes solutions Outcome Evaluation Met Bony Prominences are padded Yes Arm boards are padded, positioned at Yes less than 90 degrees with palms facing up and fingers extended Palms in neutral position when at the Yes side of the body Shoulder lateral rotation and abduction Yes are kept at a minimum Extremities are prevented from dropping Yes below bed level Head placed in neutral position if not Yes limited by procedure or patient physical limitations There is adequate padding for saphenous, Yes sciatic and peroneal nerves especially when patient in lithotomy on lateral position. Outcome Evaluation Met OT Acute Daily Note Start: 04/27/16 10: 30 Freq: Status: Discharge Document 04/29/16 12:51 MDS (Rec: 04/29/16 12:55 MDS [id number]) General/Subjective Date of Admission 04/21/16 Referring Provider Trina Lobo OT Visit # 2 Diagnosis Peripheral vascular disease, unspecified OT Treatment Diagnosis Muscle weakness (generalized) Subjective Upon arrival pt was laying in bed. Pt very lethargic and needing tactile cues and mod verbal cues to wake up. Pt needing mod encouragement but agreed to participate in therapy in bed. Objective General Exercise Upper Extremity Shoulder Extension ROM Shoulder Flexion/Scaption ROM Shoulder Abduction ROM Elbow [place] Exercise Completed Bilateral Upper Extremity # Sets 2 Repetitions 10 Exercise Tolerance Poor Limitations Muscle Weakness Exercise Comment Pt needing AAROM for exercises . Rehab Education Education Topic Home Exercise Program Safety Awareness Teaching Recipient Patient Teaching Method Verbal Response to Teaching Reinforcement needed Assessment/Plan Assessment Pt very lethargic and needing max cues to stay on task. Progression Toward Goals Pt progressing slowly towards goals due to confusion and being lethargic Disposition at end of Eval/Treatment In bed Lines intact Call light/phone within reach Tray table within reach All needs met Plan Continue to increase I with adls and transfers while collaborating with OTR. Time Started 09:10 Time Ended 09:20 Total Treatment Time (Min) (min) 10 Timed Code Treatment Minutes (min) 10 Estimated OT Needs at Discharge SNF/ECF Charge Sheet Therapeutic Exercise 1 OT Charges/Documentation Finished? Yes Is patient being discharged from OT No today? OT Acute Eval Start: 04/27/16 10: 30 Freq: Status: Discharge Document 04/27/16 10:30 LLN (Rec: 04/27/16 10:58 LLN [id number]) Inpatient Rehab Intake Date of Admission 04/21/16 Chief Complaint s/p AKA PMH/Surgical History Relevant to Rehab CHF, HTN, hyperlipidemia, arrhythmia, cardio myopathy, asthma, dementia, CRD stage IV , DM, GERD, microcytosis, constipation, toxic metabolic encephalopathy, delirium, UTI, diabetic foot infection, ischemic cardiomyopathy, acute respiratory failure, elevated troponin, demand ischemic mycardian, CAD, anemia, acute renal tackie, Diagnosis Peripheral vascular disease, unspecified Reason for Referral/Orders OT evaluation History of falls in past 6 months No History History Provided By Patient Lives With: Spouse Number of Floors (Floors) 1 Are there handrails? Ramp Entry Bathing Environment Tub/Shower Current DME Power Wheelchair/Scooter Sliding Board Shower Chair Prior Level Of Function Patient required assistance for bathing, LE dressing. Has HH 7 days a week, 4 hours per day to assist with cleaning, cooking, laundry. Prior Mobility Level Patient transfers independently but has been non -ambulatory for years Driving Patient does not drives uses [employer] [facility] [employer] for transportation. Patient/Family Goal Patient unsure of discharge plans considering rehab. Pain Assessment Pain Present Reports Pain Left Knee Radiation Location also arm and leg, pain seemed generalized and hyperactive. Intensity 10 Scale Used Numeric (1 - 10) Functional Mobility Assessment Activity Tolerance Poor Additional Information Attempted to move patient edge of bed which she had agreed to then screamed in pain with minimal movement. Patient reported fear of moving and needing more time. At this point changed to in bed evaluation to initiate treatment. ADL Assessment Grooming Ability Maximum Assistance Upper Body Dressing Ability Total Assistance Lower Body Dressing Ability Total Assistance Washing/Drying Upper Body Ability Maximum Assistance Washing/Drying Lower Extremities Ability Total Assistance Eating (Feeding) Ability Independent Activity Tolerance Poor ADL's Patient very sensitive to movement with increased pain response and difficulty with tolerance. Gross Strength/ROM Gross UE Strength Impaired Gross UE ROM Impaired UE ROM/Strength Detail UE shoulder AROM to approximately 70 degrees bilatrally. Elbow flexion and extension with full AROM. Gross LE Strength Other (See Detail) Gross LE ROM Other (See Detail) LE ROM/Strength Detail see pT evaluation Gross Sensorimotor Gross Sensation RUE Impaired RLE Impaired LLE Impaired Sensation Assessment Summary Comments Hypersensitive pain response generalized with touch and movement Gross Coordination RUE Impaired LUE Impaired Fine Motor Coordination No Deficit Noted Cognition/Visual Assessment Mental Status Alert & Oriented Visual Acuity Impaired R Vision Comment Minimal vision in right eye Hearing Ability Normal Ability to Follow Directions Follows One Step Needs Directions Repeated Comprehension Ability Mild Impairment Patient Behavior Appropriate Cooperative Speech Pattern Clear Appropriate Rehab Education Education Topic ADLs Bed Mobility Teaching Recipient Patient Teaching Method Verbal Response to Teaching Verbalize understanding Acute OT POC Is patient being assessed for No rehabilitation for diagnosis of stroke? AM-PAC OT Inpatient Daily Activity Raw 11 Score AM-PAC CMS 0-100% Impaired Score 70 Problems/Impairments/Functional Decreased Functional Endurance Limitation Decreased ADL's/IADL's Decreased Safety/Judgement/ Cognition Decreased Functional Mobility/ Transfers Decreased ROM Decreased Strength Assessment Patient has above deficits that warrant OT treatment at this time. Patient self- limiting with pain a limiting factor as well. Patient also requires further placement to maximize functional status and return to prior functioning level. Rehab Potential Fair Disposition at end of Eval/Treatment In bed Lines intact Call light/phone within reach Tray table within reach All needs met OT Treatment Diagnosis Muscle weakness (generalized) Planned OT Interventions Therapeutic Exercise Therapeutic Activity Self Care/Home Management OT Treatment Frequency Once a Day, Mon-Fri OT Duration of Treatment hospitalization Estimated OT Needs at Discharge SNF/ECF OT Estimated DME Needs at D/C None Patient will participate in ADLs of Moderate Assistance various media (dressing,bathing) with___ __ to improve ADL I/participation by hospital discharge. Patient will improve functional outcome AMPAC score on by noted improvement of score (increase or decrease as measured on tool by 2 points) within short term hospitalization stay. Patient will improve impaired UE ROM by 20-30 Degrees to improve ADL performance/ participation by hospital discharge. Patient will improve strength by 1 Bilateral UE /2 grade to improve ADL participation & independence by short term hospial stay. Patient will complete of paced 10-15 min with breaks therapeutic exercise to improve functional stamina as needed for daily routine & ADLs by hosptial discharge. Occupational Therapy STG's 1. Patient will perform basic ADLs for grooming with set-up assistance. 2. Patient will tolerate UE ROM and activity tolerance times 10 minutes. Supervising Therapist Lisette Sommeral and Re-Eval Charges Evaluation Time: Minutes with Patient 30 Occupational Therapy Evaluation Low Yes Complexity OT Charges/Documentation Finished? Yes Is patient being discharged from OT No today? Financial Class MCR Secondary Payer Y OT G-code Therapy Billing Start: 04/27/16 10: 30 Freq: Status: Discharge Document 04/27/16 10:58 LLN (Rec: 04/27/16 10:59 LLN [id number]) OT G-codes G-code Required For This Visit No OT Current Status Self Care OT Current Status Modifier At least 60% but less than 80% impaired, limited or restricted OT Goal Status Self Care OT Goal Status Modifier At least 60% but less than 80% impaired, limited or restricted OT Missed Visit Start: 04/27/16 10: 30 Freq: Status: Discharge Document 04/28/16 11:30 MDS (Rec: 04/28/16 11:31 MDS [id number]) Missed Visit Missed Visit Reason In Dialysis Op Nursing Dx: Hypothermia Start: 04/24/16 08: 34 Freq: Status: Complete Document 04/24/16 08:34 GENOVEVA (Rec: 04/24/16 08:34 GENOVEVA [email or web address]) Op Nursing Dx: Hypothermia Patient temperature will be monitored. Yes Room temperature will be maintained Yes between 68-73 degrees. Warm blankets will be used to warm Yes patient. Milagros Hugger used when possible. Yes Warm IV fluids will be used. Yes Warm irrigation fluids will be used. Yes Skin exposure will be minimized. Yes Outcome Evaluation Met Op Nursing Dx:Infection Start: 04/24/16 08: 34 Freq: Status: Complete Document 04/24/16 08:34 GENOVEVA (Rec: 04/24/16 08:34 GNEOVEVA [email or web address]) Op Nursing Dx:Infection Has correct antibiotic prophylaxis been Yes given within last 60 mins? If hair removal required for procedure, Yes performed with clippers prior to OR Antiseptic agent applied to skin over Yes surgical site and surrounding area in a manner to minimize contamination, preserve skin integrity, and prevent tissue damage. Sterility will be maintained throughout Yes surgical procedure. Minimize traffic within the surgical Yes suite during procedure. Outcome Evaluation Met Operative Phase I Start: 04/24/16 09: 53 Freq: Status: Discharge Document 04/24/16 09:48 CPF (Rec: 04/24/16 09:56 CPF [email or web address]) PACU Intake Data PACU Intake Data Warm Blankets SR UP x 2 Home Medications Include Beta Cely Yes Date Beta Cely Last Taken 04/23/16 Time Beta Cely Last Taken 20:43 If yes, was beta cely taken/ Yes administered within 24 hours prior to making incision through PACU? Is anesthesia record complete with Yes correct date, antibiotic time and anesthesia start/end time? IV Site Documentation IV #1 IV access established prior to arrival Yes on the unit? IV Location fani Site Evaluation No problems noted Dressing Transparent-Polyurethane Comment powerglide Initial assessment 09:48 Document 04/24/16 10:04 CPF (Rec: 04/24/16 10:05 CPF [email or web address]) PACU Intake Data PACU Intake Data Waiting Room Called Family Updated No Time Updated 10:04 IV Site Documentation IV #1 IV access established prior to arrival Yes on the unit? IV Location fani Site Evaluation No problems noted Dressing Transparent-Polyurethane Comment powerglide Initial assessment 09:48 Reassessed 10:04 Oxygen administration Start: 04/19/16 23: 58 Freq: Q12H Status: Complete Document 04/19/16 23:58 JKB (Rec: 04/20/16 00:20 JKB [id number]) Oxygen O2 Sat by Pulse Oximetry (95-100) 97 Oxygen Delivery Method Nasal Cannula Oxygen Flow Rate (LPM) 1 PT Acute Eval Start: 04/27/16 11: 32 Freq: Status: Discharge Document 04/27/16 12:32 RLM (Rec: 04/27/16 12:44 RLM [id number]) Inpatient Rehab Intake Date of Admission 04/21/16 Chief Complaint s/p AKA PMH/Surgical History Relevant to Rehab CHF, HTN, hyperlipidemia, arrhythmia, cardio myopathy, asthma, dementia, CRD stage IV , DM, GERD, microcytosis, constipation, toxic metabolic encephalopathy, delirium, UTI, diabetic foot infection, ischemic cardiomyopathy, acute respiratory failure, elevated troponin, demand ischemic mycardian, CAD, anemia, acute renal tackie, Diagnosis Peripheral vascular disease, unspecified Reason for Referral/Orders PT evaluation History of falls in past 6 months No History History Provided By Patient Lives With: Spouse Number of Floors (Floors) 1 Are there handrails? Ramp Entry Bathing Environment Tub/Shower Current DME Power Wheelchair/Scooter Sliding Board Shower Chair Prior Level Of Function Patient required assistance for bathing, LE dressing. Has HH 7 days a week, 4 hours per day to assist with cleaning, cooking, laundry. Prior Mobility Level Patient transfers independently but has been non -ambulatory for years Driving Patient does not drives uses [employer] [facility] [employer] for transportation. Patient/Family Goal Patient unsure of discharge plans considering rehab. Pain Assessment Pain Present Reports Pain Left Knee Radiation Location also arm and leg, pain seemed generalized and hyperactive. Intensity 10 Scale Used Numeric (1 - 10) Left Upper Arm Pain Description Acute Tender With Movement Functional Mobility Assessment Activity Tolerance Poor Additional Information Pt over reactive does not want the left residual limb touched, refuses all bed movement this date 2/2 to fear of potential pain. Pt will not allow therapist to move pt off the right hip to assess the mobility, Pt will not allow movement of the left LE this date Gait/Stairs Deviation Assess. Ambulation Ability Total Assistance Stair Comment coccyx Gross Strength/ROM Gross UE Strength Impaired Gross UE ROM Impaired UE ROM/Strength Detail defer UEs to OT UE shoulder AROM to approximately 70 degrees bilatrally. Elbow flexion and extension with full AROM. Gross LE Strength Impaired LE ROM/Strength Detail LLE pt will not allow assessment RLE foot and knee 50% decline in AROM, right hip cannot be assess as te pt will not allow mobility in the bed - RLE strength 2+ Torso/Spine Detail PT unable to assess 2/2 to pt not willing to move Edema/Skin Integrity Comment left residual limb incision, right foot dressed in bandages Gross Sensorimotor Sensation Response to Kinesthesia ( Impaired Movement) Stimulus Gross Coordination RUE Impaired LUE Impaired RLE Impaired LLE Impaired Fine Motor Coordination RLE Impaired Coordination Assessment Gross Coordination RUE Impaired LUE Impaired RLE Impaired LLE Impaired Cognition/Visual Assessment Level of Alertness Alert Patient Orientation Person Name Date of Mental Status Alert & Oriented Safety Awareness Patient is Unaware of Their Safety Patient Is Unaware of Others Safety Patient Is Unaware of Situations Around Them Patient Is Unaware of Safety Issues Attention to Task Unable to Make Plans Unable to Organize Plans Unable to Remember Details Visual Acuity Impaired R Vision Comment Minimal vision in right eye Hearing Ability Normal Ability to Follow Directions Follows One Step Needs Directions Repeated Comprehension Ability Mild Impairment Patient Behavior Appropriate Cooperative Anxious Fearful Speech Pattern Clear Appropriate Rehab Education Education Topic ADLs Bed Mobility Teaching Recipient Patient Teaching Method Verbal Response to Teaching Reinforcement needed Education Provided: Details Pt educating this patient on the need to move andthe need for densensatization of the LLE Acute Care PT POC Is patient being assessed for No rehabilitation for diagnosis of stroke? AM-PAC PT Basic Mobility Raw Score 5 AM-PAC CMS 0-100% Impaired Score 100 Problems/Impairments/Functional Decreased Functional Endurance Limitation Decreased ADL's/IADL's Decreased Safety/Judgement/ Cognition Decreased Functional Mobility/ Transfers Decreased ROM Decreased Strength Assessment PT evaluation is completed this date. Pt demonstrate the need for skilled PT to address the followinga areas: bed mobility- let-right roll, supine to sit transfers,AROM, strength of LEs and trunk and sensatization of the left residual limb Rehab Potential Fair Disposition at end of Eval/Treatment In bed Lines intact Call light/phone within reach Tray table within reach All needs met PT Treatment Diagnosis Other abnormalities of gait and mobility Additional PT Treatment Diagnosis/ R53.1 Clarification R27.8 Planned Interventions Therapeutic Exercise Therapeutic Activity Gait Training Neuromuscular Reeducation PT Treatment Frequency Once a Day, Mon-Fri Duration of Treatment 10 Goals Determined With Patient/Family Yes Estimated PT Needs at Discharge SNF/ECF Pt. will perform all bed mobility with__ max x 2 left right roll ___to increase functional indendence. Pt. will perform all transfers with max x 2 supine to sit to increase safe functional mobility and independence. Pt. will demonstrate static/dynamic fair- trunk control for to EOB balance during all functional activities mobility allowing increased safety awareness. Pt. will participate in of 15 minutes continuous activity allowing increased endurance while completing ADLs improving quality of life. Pt. will perform therapeutic exercise Verbal/Tactile Cues with to improve functional ROM, strength, and endurance during all functional activities. Physical Therapy STG's Pt to be (I) in Left residual limb densentization Physical Therapy LTG's Pt to score a 12 on the AM-PAc demonstratine improved safe functional mobility. Supervising Therapist Suzette Kingsley Eval and Re-Eval Charges Evaluation Time: Minutes with Patient 30 Physical Therapy Evaluation Low Yes Complexity PT Charges/Documentation Finished? Yes Is patient being discharged from PT No today? Please Select All That Apply To Today's [place] Documented Visit Financial Class MCR Secondary Payer Y PT G-code Therapy Billing Start: 04/27/16 11: 32 Freq: Status: Discharge Document 04/27/16 12:32 RL (Rec: 04/27/16 12:44 [facility] [id number]) PT G-codes G-code Required For This Visit No PT Current Status Body Position PT Current Status Modifier At least 100% impaired, limited or restricted PT Goal Status Body Position PT Goal Status Modifer At least 60% but less than 80% impaired, limited or restricted PT Missed Visit Start: 04/27/16 11: 32 Freq: Status: Discharge Document 04/28/16 15:10 ADH (Rec: 04/28/16 15:11 ADH [id number]) Missed Visit Missed Visit Reason In Dialysis Comment Pt in dialysis this date. Document 04/29/16 14:04 MJB (Rec: 04/29/16 14:05 MJB [id number]) Missed Visit Missed Visit Reason Refused/Declined Comment any participate with therapy that would include touching the LE's. Pastoral Care Start: 04/20/16 11: 29 Freq: Status: Discharge Document 04/20/16 11:29 PLR (Rec: 04/20/16 11:30 PLR [id number]) Pastoral Care Referral Source Consult Pastoral Visit Type Attempted Visit Pastoral Care 04/20/16 11:30 Pastoral Care Note by Jalen Miller This rn unit manager responded to a pastoral care consult on the patient but she was asleep. [employer] Commerce Developer will make another attempt to visit patient. Initialized on 04/20/16 11:30 - END OF NOTE Document 04/22/16 15:40 PLR (Rec: 04/22/16 15:41 PLR [id number]) Pastoral Care Referral Source Consult Pastoral Visit Type Follow-up Pastoral Care 04/22/16 15:41 Pastoral Care Note by Jalen Miller This rn unit manager attempted a follow up visit from a pastoral care consult but patient was sleeping at the time of visit. Initialized on 04/22/16 15:41 - END OF NOTE Document 04/29/16 10:21 PLR (Rec: 04/29/16 10:22 PLR [id number]) Pastoral Care Referral Source Consult Pastoral Visit Type Attempted Visit Palliative Care 04/29/16 10:21 Pastoral Care Note by Jalen Miller This rn unit manager stopped by patient's room to visit to respond to a palliative care consult. However, she was asleep at the time of visit. 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 Initialized on 04/29/16 10:21 - END OF NOTE Post Op Vital Signs Start: 04/24/16 09: 53 Freq: Status: Complete Document 04/24/16 09:48 CPF (Rec: 04/24/16 09:56 CPF [facility]) Postoperative Vital Signs Alarm On/Audible Yes B/P Systolic 160 B/P Diastolic 100 Heart Rate 115/50 SaO2 100/90 Temperature (97.6 F-99.6 F) 99.2 F Temperature Source Temporal Artery Scan Pulse Rate 62 Respiratory Rate 16 Blood Pressure 138/60 O2 Sat by Pulse Oximetry (95-100) 98 Blood Glucose* 128 EKG sr with 1st degree av block Pain Scale 0 Comment pt nonverbal at thsi time Respiratory Effort Easy and Regular Auscultation of Lungs Clear Airway patent Oxygen Appliance Mask Oxygen Flow Rate (LPM) 8 Cough and Deep Breath Yes Position Head of Bed Elevated 30 Level of Consciousness Sleeping Arouses to Name Activity Sleeping Nausea and Vomiting Denies Lines Peripheral Dillan Activity Able to move four extremeties voluntarily upon command Dillan Respirations Able to deep breathe and cough freely Dillan Circulation Blood pressure and heart rate within 20% of preprocedure level Dillan Oxygen Saturation Needs oxygen to maintain saturations above 90% Dillan Consciousness Arousable on calling Dillan Total Score 8 Drains and Dressings #1 Drain Drain Type and Location hope Drainage Clear Urine #1 Dressing Type and Location left stump with kerlix and silk tape Dressing Dry and Intact Drainage None Document 04/24/16 09:58 CPF (Rec: 04/24/16 10:04 CPF [facility]) Postoperative Vital Signs Pulse Rate 68 Respiratory Rate 16 Blood Pressure 144/58 O2 Sat by Pulse Oximetry (95-100) 97 EKG sr with 1st degree av block Pain Scale 0 Comment shakes head no Respiratory Effort Easy and Regular Auscultation of Lungs Clear Airway patent Oxygen Appliance Mask Oxygen Flow Rate (LPM) 6 Cough and Deep Breath Yes Position Head of Bed Elevated 30 Level of Consciousness Arouses to Name Drowsy Activity Awake and Resting Nausea and Vomiting Denies Lines Peripheral Dillan Activity Able to move four extremeties voluntarily upon command Dillan Respirations Able to deep breathe and cough freely Dillan Circulation Blood pressure and heart rate within 20% of preprocedure level Dillan Oxygen Saturation Needs oxygen to maintain saturations above 90% Dillan Consciousness Arousable on calling Dillan Total Score 8 Drains and Dressings #1 Drain Drain Type and Location hope Drainage Clear Urine #1 Dressing Type and Location left stump with kerlix and silk tape Dressing Dry and Intact Drainage None Document 04/24/16 10:08 CPF (Rec: 04/24/16 10:09 CPF [id number]) Postoperative Vital Signs Pulse Rate 70 Respiratory Rate 14 Blood Pressure 143/50 O2 Sat by Pulse Oximetry (95-100) 94 L EKG sr with 1st degree av block Pain Scale 0 Respiratory Effort Easy and Regular Auscultation of Lungs Clear Airway patent Oxygen Appliance Nasal cannula Oxygen Flow Rate (LPM) 2 Cough and Deep Breath Yes Position Head of Bed Elevated 30 Level of Consciousness Arouses to Name Drowsy Activity Awake and Resting Nausea and Vomiting Denies Lines Peripheral Dillan Activity Able to move four extremeties voluntarily upon command Dillan Respirations Able to deep breathe and cough freely Dillan Circulation Blood pressure and heart rate within 20% of preprocedure level Dillan Oxygen Saturation Needs oxygen to maintain saturations above 90% Dillan Consciousness Arousable on calling Dillan Total Score 8 Drains and Dressings #1 Drain Drain Type and Location hope Drainage Clear Urine #1 Dressing Type and Location left stump with kerlix and silk tape Dressing Dry and Intact Drainage None Document 04/24/16 10:18 CPF (Rec: 04/24/16 10:18 CPF [id number]) Postoperative Vital Signs Temperature (97.6 F-99.6 F) 98.9 F Temperature Source Temporal Artery Scan Pulse Rate 64 Respiratory Rate 20 Blood Pressure 140/55 O2 Sat by Pulse Oximetry (95-100) 94 L EKG sr with 1st degree av block Pain Scale 0 Respiratory Effort Easy and Regular Auscultation of Lungs Clear Airway patent Oxygen Appliance Nasal cannula Oxygen Flow Rate (LPM) 2 Cough and Deep Breath Yes Position Head of Bed Elevated 30 Level of Consciousness Arouses to Name Drowsy Activity Awake and Resting Nausea and Vomiting Denies Lines Peripheral Dillan Activity Able to move four extremeties voluntarily upon command Dillan Respirations Able to deep breathe and cough freely Dillan Circulation Blood pressure and heart rate within 20% of preprocedure level Dillan Oxygen Saturation Needs oxygen to maintain saturations above 90% Dillan Consciousness Arousable on calling Dillan Total Score 8 Drains and Dressings #1 Drain Drain Type and Location hope Drainage Clear Urine #1 Dressing Type and Location left stump with kerlix and silk tape Dressing Dry and Intact Drainage None Preoperative Checklist Start: 04/24/16 06: 31 Freq: Status: Complete Document 04/24/16 06:32 JCL (Rec: 04/24/16 06:38 JCL [id number]) Preoperative Checklist Verified Documents Surgical Consent History and Physical List of Home Meds Results Verified ECG CBC Home Medications Include Beta Cely Yes Date Beta Cely Last Taken 04/23/16 Time Beta Cely Last Taken 20:43 Anesthesia notified if Beta Cely not Yes taken within 24 hours? Patient Checklist ID Bracelet Verified NPO after Midnight Allergies Verified/ Band on Patient Voided/Catheter Emptied IV Access Obtained Jewelry Removed Underclothes Removed Makeup/Nailpolish Off Loose or Broken Teeth Document 04/24/16 07:30 GENOVEVA (Rec: 04/24/16 09:13 GENOVEVA [email or web address]) Preoperative Checklist Verified Documents Surgical Consent Anesthesia Consent History and Physical H&P Update List of Home Meds Results Verified ECG CBC Home Medications Include Beta Cely Yes Date Beta Cely Last Taken 04/23/16 Time Beta Cely Last Taken 20:43 Anesthesia notified if Beta Cely not Yes taken within 24 hours? Patient Checklist ID Bracelet Verified NPO after Midnight Allergies Verified/ Band on Patient Voided/Catheter Emptied IV Access Obtained Jewelry Removed Underclothes Removed Makeup/Nailpolish Off Loose or Broken Teeth RT PRN/Refused/Not Available Start: 04/24/16 09: 07 Freq: Status: Discharge Document 04/24/16 08:43 HRF (Rec: 04/24/16 09:08 HRF [place] [id number]) PRN/Refused Not Available Yes Comment Patient away from room for procedure. Sepsis Screening Start: 04/19/16 23: 58 Freq: Q4H Status: Discharge Document 04/19/16 23:58 JKB (Rec: 04/20/16 00:25 [facility] [id number]) Sepsis Screening Sepsis Infection Criteria Present confirmed infection Sepsis SIRS Criteria none Sepsis Screen No Definite Risk Sepsis Action Taken no action required Document 04/20/16 07:30 [id number] (Rec: 04/20/16 10:58 [id number]) Sepsis Screening Sepsis Infection Criteria Present confirmed infection Sepsis SIRS Criteria none Sepsis Screen No Definite Risk Sepsis Action Taken no action required Document 04/20/16 16:00 [id number] (Rec: 04/20/16 18:33 [id number]) Sepsis Screening Sepsis Infection Criteria Present confirmed infection Sepsis SIRS Criteria HR > 90 bpm Sepsis Screen No Definite Risk Sepsis Action Taken no action required Document 04/20/16 19:30 DIMPLE (Rec: 04/20/16 21:07 DIMPLE [id number]) Sepsis Screening Sepsis Infection Criteria Present confirmed infection Sepsis SIRS Criteria HR > 90 bpm Sepsis Screen No Definite Risk Sepsis Action Taken no action required Document 04/20/16 23:05 DIMPLE (Rec: 04/20/16 23:18 DIMPLE [id number]) Sepsis Screening Sepsis Infection Criteria Present confirmed infection Sepsis SIRS Criteria none Sepsis Screen No Definite Risk Sepsis Action Taken no action required Document 04/21/16 07:30 [id number] (Rec: 04/21/16 07:50 [id number]) Sepsis Screening Sepsis Infection Criteria Present confirmed infection Sepsis SIRS Criteria temperature > 100.9 or < 96.8 F HR > 90 bpm Sepsis Organ Dysfunction Criteria none Present Sepsis Screen Sepsis Risk Sepsis Action Taken provider notified Sepsis Name of Provider Notified Trina Lobo Document 04/21/16 11:30 [id number] (Rec: 04/21/16 14:03 [id number]) Sepsis Screening Sepsis Infection Criteria Present confirmed infection Sepsis SIRS Criteria temperature > 100.9 or < 96.8 F Sepsis Organ Dysfunction Criteria none Present Sepsis Screen No Definite Risk Sepsis Action Taken no action required Sepsis Name of Provider Notified Trina Lobo Document 04/21/16 16:00 [id number] (Rec: 04/21/16 17:40 [id number]) Sepsis Screening Sepsis Infection Criteria Present confirmed infection Sepsis SIRS Criteria temperature > 100.9 or < 96.8 F Sepsis Screen No Definite Risk Sepsis Action Taken no action required Sepsis Name of Provider Notified Trina Torresuri Document 04/21/16 20:00 JKB (Rec: 04/21/16 20:14 JKB [id number]) Sepsis Screening Sepsis Infection Criteria Present confirmed infection Sepsis SIRS Criteria temperature > 100.9 or < 96.8 F Sepsis Screen No Definite Risk Sepsis Action Taken no action required Document 04/22/16 00:00 JKB (Rec: 04/22/16 08:36 JKB [id number]) Sepsis Screening Sepsis Infection Criteria Present confirmed infection Sepsis SIRS Criteria temperature > 100.9 or < 96.8 F Sepsis Screen No Definite Risk Sepsis Action Taken no action required Document 04/22/16 03:45 JKB (Rec: 04/22/16 08:41 JKB [id number]) Sepsis Screening Sepsis Infection Criteria Present confirmed infection Sepsis SIRS Criteria temperature > 100.9 or < 96.8 F Sepsis Screen No Definite Risk Sepsis Action Taken no action required Sepsis Name of Provider Notified Trina Lobo Document 04/22/16 10:43 LJS (Rec: 04/22/16 11:00 LJS [id number]) Sepsis Screening Sepsis Infection Criteria Present none Sepsis SIRS Criteria temperature > 100.9 or < 96.8 F Sepsis Screen No Definite Risk Sepsis Action Taken no action required Document 04/22/16 11:45 LJS (Rec: 04/22/16 12:32 LJS [id number]) Sepsis Screening Sepsis Infection Criteria Present none Sepsis SIRS Criteria none Sepsis Screen No Definite Risk Sepsis Action Taken no action required Document 04/22/16 15:21 LJS (Rec: 04/22/16 15:25 LJS [id number]) Sepsis Screening Sepsis Infection Criteria Present none Sepsis SIRS Criteria none Sepsis Screen No Definite Risk Sepsis Action Taken no action required Document 04/22/16 20:20 JCL (Rec: 04/22/16 22:11 JCL [id number]) Sepsis Screening Sepsis Infection Criteria Present none Sepsis SIRS Criteria none Sepsis Screen No Definite Risk Sepsis Action Taken no action required Document 04/22/16 23:42 JCL (Rec: 04/23/16 01:40 JCL [id number]) Sepsis Screening Sepsis Infection Criteria Present none Sepsis SIRS Criteria none Sepsis Screen No Definite Risk Sepsis Action Taken no action required Document 04/23/16 04:25 JCL (Rec: 04/23/16 05:00 JCL [id number]) Sepsis Screening Sepsis Infection Criteria Present none Sepsis SIRS Criteria none Sepsis Screen No Definite Risk Sepsis Action Taken no action required Document 04/23/16 07:30 LJS (Rec: 04/23/16 09:49 [id number] Sepsis Screening Sepsis Infection Criteria Present suspected infection Sepsis SIRS Criteria none Sepsis Screen No Definite Risk Sepsis Action Taken no action required Document 04/23/16 11:15 LJS (Rec: 04/23/16 12:30 LJ [id number]) Sepsis Screening Sepsis Infection Criteria Present suspected infection Sepsis SIRS Criteria temperature > 100.9 or < 96.8 F Sepsis Screen No Definite Risk Sepsis Action Taken no action required Sepsis Name of Provider Notified Trina Lobo Document 04/23/16 15:45 LJS (Rec: 04/23/16 15:51 LJS [id number]) Sepsis Screening Sepsis Infection Criteria Present suspected infection Sepsis SIRS Criteria temperature > 100.9 or < 96.8 F Sepsis Screen No Definite Risk Sepsis Action Taken no action required Document 04/23/16 19:48 JCL (Rec: 04/23/16 21:11 JCL [id number]) Sepsis Screening Sepsis Infection Criteria Present suspected infection Sepsis SIRS Criteria WBC > 12k or < 4k or bands > 10% Sepsis Screen No Definite Risk Sepsis Action Taken no action required Document 04/23/16 23:54 JCL (Rec: 04/24/16 00:49 JCL [id number]) Sepsis Screening Sepsis Infection Criteria Present suspected infection Sepsis SIRS Criteria WBC > 12k or < 4k or bands > 10% Sepsis Screen No Definite Risk Sepsis Action Taken no action required Document 04/24/16 03:37 JCL (Rec: 04/24/16 04:57 JCL [id number]) Sepsis Screening Sepsis Infection Criteria Present suspected infection Sepsis SIRS Criteria RR > 20 rpm WBC > 12k or < 4k or bands > 10% Sepsis Organ Dysfunction Criteria none Present Sepsis Screen Sepsis Risk Sepsis Action Taken prov prev notified Sepsis Name of Provider Notified Trina Lobo Document 04/24/16 10:43 [id number] (Rec: 04/24/16 10:43 [id number]) Sepsis Screening Sepsis Infection Criteria Present suspected infection Sepsis SIRS Criteria WBC > 12k or < 4k or bands > 10% Sepsis Organ Dysfunction Criteria none Present Sepsis Screen No Definite Risk Sepsis Action Taken no action required Document 04/24/16 15:28 RKS (Rec: 04/24/16 15:35 RKS [id number]) Sepsis Screening Sepsis Infection Criteria Present suspected infection Sepsis SIRS Criteria WBC > 12k or < 4k or bands > 10% Sepsis Screen No Definite Risk Sepsis Action Taken no action required Sepsis Name of Provider Notified Trina Lobo Document 04/24/16 19:36 JCL (Rec: 04/24/16 21:43 JCL [id number]) Sepsis Screening Sepsis Infection Criteria Present suspected infection Sepsis SIRS Criteria WBC > 12k or < 4k or bands > 10% Sepsis Screen No Definite Risk Sepsis Action Taken no action required Sepsis Name of Provider Notified Trina Lobo Document 04/24/16 23:57 JCL (Rec: 04/25/16 01:00 JCL [id number]) Sepsis Screening Sepsis Infection Criteria Present suspected infection Sepsis SIRS Criteria WBC > 12k or < 4k or bands > 10% Sepsis Screen No Definite Risk Sepsis Action Taken no action required Sepsis Name of Provider Notified Trina Lobo Document 04/25/16 03:57 JCL (Rec: 04/25/16 05:42 JCL [id number]) Sepsis Screening Sepsis Infection Criteria Present suspected infection Sepsis SIRS Criteria WBC > 12k or < 4k or bands > 10% Sepsis Screen No Definite Risk Sepsis Action Taken no action required Sepsis Name of Provider Notified Trina Lobo Document 04/25/16 10:35 JOYCE (Rec: 04/25/16 11:59 JOYCE [id number]) Sepsis Screening Sepsis Infection Criteria Present none Sepsis SIRS Criteria none Sepsis Screen No Definite Risk Sepsis Action Taken no action required Document 04/25/16 12:15 JOYCE (Rec: 04/25/16 13:39 JOYCE [id number]) Sepsis Screening Sepsis Infection Criteria Present none Sepsis SIRS Criteria none Sepsis Screen No Definite Risk Sepsis Action Taken no action required Sepsis Name of Provider Notified Trina Lobo Document 04/25/16 16:35 JOYCE (Rec: 04/25/16 18:16 JOYCE [id number]) Sepsis Screening Sepsis Infection Criteria Present none Sepsis SIRS Criteria none Sepsis Screen No Definite Risk Sepsis Action Taken no action required Sepsis Name of Provider Notified Trina Lobo Document 04/25/16 19:44 JCL (Rec: 04/25/16 21:21 JCL [id number]) Sepsis Screening Sepsis Infection Criteria Present suspected infection Sepsis SIRS Criteria none Sepsis Screen No Definite Risk Sepsis Action Taken no action required Sepsis Name of Provider Notified Trina Lobo Document 04/25/16 23:45 JCL (Rec: 04/26/16 00:28 JCL [id number]) Sepsis Screening Sepsis Infection Criteria Present suspected infection Sepsis SIRS Criteria none Sepsis Screen No Definite Risk Sepsis Action Taken no action required Document 04/26/16 03:47 JCL (Rec: 04/26/16 05:02 JCL [id number]) Sepsis Screening Sepsis Infection Criteria Present suspected infection Sepsis SIRS Criteria none Sepsis Screen No Definite Risk Sepsis Action Taken no action required Sepsis Name of Provider Notified Trina Lobo Document 04/26/16 07:00 JOYCE (Rec: 04/26/16 13:23 JOYCE [id number]) Sepsis Screening Sepsis Infection Criteria Present suspected infection Sepsis SIRS Criteria none Sepsis Screen No Definite Risk Sepsis Action Taken no action required Document 04/26/16 09:00 JOYCE (Rec: 04/26/16 13:23 JOYCE [id number]) Sepsis Screening Sepsis Infection Criteria Present none Sepsis SIRS Criteria none Sepsis Screen No Definite Risk Sepsis Action Taken no action required Document 04/26/16 12:10 JOYCE (Rec: 04/26/16 13:31 JOYCE [id number]) Sepsis Screening Sepsis Infection Criteria Present none Sepsis SIRS Criteria none Sepsis Screen No Definite Risk Sepsis Action Taken no action required Document 04/26/16 16:20 JOYCE (Rec: 04/26/16 18:29 JOYCE [id number]) Sepsis Screening Sepsis Infection Criteria Present none Sepsis SIRS Criteria none Sepsis Screen No Definite Risk Sepsis Action Taken no action required Sepsis Name of Provider Notified Trina Lobo Document 04/26/16 19:36 JCL (Rec: 04/26/16 23:24 JCL [id number]) Sepsis Screening Sepsis Infection Criteria Present suspected infection Sepsis SIRS Criteria none Sepsis Screen No Definite Risk Sepsis Action Taken no action required Document 04/26/16 23:44 JCL (Rec: 04/27/16 01:46 JCL [id number]) Sepsis Screening Sepsis Infection Criteria Present suspected infection Sepsis SIRS Criteria none Sepsis Screen No Definite Risk Sepsis Action Taken no action required Document 04/27/16 04:16 JCL (Rec: 04/27/16 05:32 JCL [id number]) Sepsis Screening Sepsis Infection Criteria Present suspected infection Sepsis SIRS Criteria none Sepsis Screen No Definite Risk Sepsis Action Taken no action required Document 04/27/16 07:45 KMS (Rec: 04/27/16 20:41 KMS [id number]) Sepsis Screening Sepsis Infection Criteria Present suspected infection Sepsis SIRS Criteria none Sepsis Screen No Definite Risk Sepsis Action Taken no action required Document 04/27/16 12:08 KMS (Rec: 04/27/16 20:46 KMS [id number]) Sepsis Screening Sepsis Infection Criteria Present suspected infection Sepsis SIRS Criteria none Sepsis Screen No Definite Risk Sepsis Action Taken no action required Document 04/27/16 17:00 KMS (Rec: 04/27/16 21:00 KM [id number]) Sepsis Screening Sepsis Infection Criteria Present suspected infection Sepsis SIRS Criteria none Sepsis Screen No Definite Risk Sepsis Action Taken no action required Document 04/27/16 19:45 JKB (Rec: 04/27/16 21:14 JKB [id number]) Sepsis Screening Sepsis Infection Criteria Present suspected infection Sepsis SIRS Criteria none Sepsis Screen No Definite Risk Sepsis Action Taken no action required Sepsis Name of Provider Notified Trina Lobo Document 04/28/16 00:10 JKB (Rec: 04/28/16 02:31 [id number]) Sepsis Screening Sepsis Infection Criteria Present suspected infection Sepsis SIRS Criteria none Sepsis Screen No Definite Risk Sepsis Action Taken no action required Sepsis Name of Provider Notified Trina Torresuri Document 04/28/16 04:10 JKB (Rec: 04/28/16 08:04 JKB [id number]) Sepsis Screening Sepsis Infection Criteria Present suspected infection Sepsis SIRS Criteria none Sepsis Screen No Definite Risk Sepsis Action Taken no action required Sepsis Name of Provider Notified Trina Lobo Document 04/28/16 08:00 JNG(2) (Rec: 04/28/16 08:58 JNG(2) [id number]) Sepsis Screening Sepsis Infection Criteria Present suspected infection Sepsis SIRS Criteria none Sepsis Screen No Definite Risk Sepsis Action Taken no action required Document 04/28/16 12:00 JNG(2) (Rec: 04/28/16 12:06 JNG(2) [id number]) Sepsis Screening Sepsis Infection Criteria Present suspected infection Sepsis SIRS Criteria none Sepsis Screen No Definite Risk Sepsis Action Taken no action required Document 04/28/16 15:53 JNG(2) (Rec: 04/28/16 15:57 JNG(2) [id number]) Sepsis Screening Sepsis Infection Criteria Present suspected infection Sepsis SIRS Criteria none Sepsis Screen No Definite Risk Sepsis Action Taken no action required Document 04/28/16 19:57 JKB (Rec: 04/28/16 20:22 JKB [id number]) Sepsis Screening Sepsis Infection Criteria Present suspected infection Sepsis SIRS Criteria none Sepsis Screen No Definite Risk Sepsis Action Taken no action required Sepsis Name of Provider Notified Trina Lobo Document 04/29/16 00:40 JKB (Rec: 04/29/16 02:26 JKB [id number]) Sepsis Screening Sepsis Infection Criteria Present suspected infection Sepsis SIRS Criteria none Sepsis Screen No Definite Risk Sepsis Action Taken no action required Document 04/29/16 03:20 JKB (Rec: 04/29/16 06:36 JKB [id number]) Sepsis Screening Sepsis Infection Criteria Present suspected infection Sepsis SIRS Criteria none Sepsis Screen No Definite Risk Sepsis Action Taken no action required Document 04/29/16 07:00 JNG(2) (Rec: 04/29/16 08:59 JNG(2) [id number]) Sepsis Screening Sepsis Infection Criteria Present suspected infection Sepsis SIRS Criteria none Sepsis Screen No Definite Risk Sepsis Action Taken no action required Document 04/29/16 11:00 JNG(2) (Rec: 04/29/16 12:40 JNG(2) [id number]) Sepsis Screening Sepsis Infection Criteria Present suspected infection Sepsis SIRS Criteria none Sepsis Screen No Definite Risk Sepsis Action Taken no action required Skin Risk Assessment Scale Start: 04/19/16 23: 58 Freq: Q12H Status: Discharge Document 04/19/16 23:58 JKB (Rec: 04/20/16 00:20 JKB [id number]) Skin Risk Assessment Scale Moisture Risk Occasionally Moist Sensory Perception Very Limited Activity Risk Bedfast Mobility Risk Very Limited Nutrition Risk Probably Inadequate Friction & Shear Risk Potential Problem Skin Risk Total Score (points) 12 Document 04/20/16 07:30 [id number] (Rec: 04/20/16 10:58 [id number]) Skin Risk Assessment Scale Moisture Risk Occasionally Moist Sensory Perception Very Limited Activity Risk Bedfast Mobility Risk Very Limited Nutrition Risk Probably Inadequate Friction & Shear Risk Potential Problem Skin Risk Total Score (points) 12 Document 04/20/16 19:30 DIMPLE (Rec: 04/20/16 21:07 DIMPLE [id number]) Skin Risk Assessment Scale Moisture Risk Occasionally Moist Sensory Perception Slightly Limited Activity Risk Chairfast Mobility Risk Very Limited Nutrition Risk Probably Inadequate Friction & Shear Risk Potential Problem Skin Risk Total Score (points) 14 Document 04/21/16 07:30 [id number] (Rec: 04/21/16 07:50 [id number]) Skin Risk Assessment Scale Moisture Risk Occasionally Moist Sensory Perception Slightly Limited Activity Risk Chairfast Mobility Risk Very Limited Nutrition Risk Probably Inadequate Friction & Shear Risk Potential Problem Skin Risk Total Score (points) 14 Document 04/21/16 20:00 JKB (Rec: 04/21/16 20:17 JKB [id number]) Skin Risk Assessment Scale Moisture Risk Occasionally Moist Sensory Perception Slightly Limited Activity Risk Chairfast Mobility Risk Very Limited Nutrition Risk Probably Inadequate Friction & Shear Risk Potential Problem Skin Risk Total Score (points) 14 Document 04/22/16 08:00 LJS (Rec: 04/22/16 10:42 LJS [id number]) Skin Risk Assessment Scale Moisture Risk Occasionally Moist Sensory Perception Slightly Limited Activity Risk Chairfast Mobility Risk Very Limited Nutrition Risk Probably Inadequate Friction & Shear Risk Potential Problem Skin Risk Total Score (points) 14 Document 04/22/16 20:20 JCL (Rec: 04/22/16 22:11 JCL [id number]) Skin Risk Assessment Scale Moisture Risk Occasionally Moist Sensory Perception Slightly Limited Activity Risk Chairfast Mobility Risk Very Limited Nutrition Risk Probably Inadequate Friction & Shear Risk No Apparent Problem Skin Risk Total Score (points) 15 Document 04/23/16 07:30 LJS (Rec: 04/23/16 09:49 LJS [id number]) Skin Risk Assessment Scale Moisture Risk Occasionally Moist Sensory Perception Slightly Limited Activity Risk Chairfast Mobility Risk Very Limited Nutrition Risk Probably Inadequate Friction & Shear Risk No Apparent Problem Skin Risk Total Score (points) 15 Document 04/23/16 19:48 JCL (Rec: 04/23/16 21:11 JCL [id number]) Skin Risk Assessment Scale Moisture Risk Occasionally Moist Sensory Perception Slightly Limited Activity Risk Bedfast Mobility Risk Very Limited Nutrition Risk Probably Inadequate Friction & Shear Risk No Apparent Problem Skin Risk Total Score (points) 14 Document 04/24/16 10:40 [id number] (Rec: 04/24/16 10:41 [id number]) Skin Risk Assessment Scale Moisture Risk Occasionally Moist Sensory Perception Very Limited Activity Risk Chairfast Mobility Risk Very Limited Nutrition Risk Adequate Friction & Shear Risk No Apparent Problem Skin Risk Total Score (points) 15 Document 04/24/16 19:36 JCL (Rec: 04/24/16 21:43 JCL [id number]) Skin Risk Assessment Scale Moisture Risk Occasionally Moist Sensory Perception Very Limited Activity Risk Chairfast Mobility Risk Very Limited Nutrition Risk Adequate Friction & Shear Risk No Apparent Problem Skin Risk Total Score (points) 15 Document 04/25/16 10:35 JOYCE (Rec: 04/25/16 11:59 JOYCE [id number]) Skin Risk Assessment Scale Moisture Risk Occasionally Moist Sensory Perception Very Limited Activity Risk Bedfast Mobility Risk Very Limited Nutrition Risk Adequate Friction & Shear Risk No Apparent Problem Skin Risk Total Score (points) 14 Document 04/25/16 19:44 JCL (Rec: 04/25/16 21:21 JCL [id number]) Skin Risk Assessment Scale Moisture Risk Occasionally Moist Sensory Perception Very Limited Activity Risk Bedfast Mobility Risk Very Limited Nutrition Risk Adequate Friction & Shear Risk No Apparent Problem Skin Risk Total Score (points) 14 Document 04/26/16 07:00 JOYCE (Rec: 04/26/16 13:23 JOYCE [id number]) Skin Risk Assessment Scale Moisture Risk Occasionally Moist Sensory Perception Very Limited Activity Risk Bedfast Mobility Risk Very Limited Nutrition Risk Adequate Friction & Shear Risk No Apparent Problem Skin Risk Total Score (points) 14 Document 04/26/16 19:36 JCL (Rec: 04/26/16 23:24 JCL [id number]) Skin Risk Assessment Scale Moisture Risk Occasionally Moist Sensory Perception Very Limited Activity Risk Bedfast Mobility Risk Very Limited Nutrition Risk Adequate Friction & Shear Risk No Apparent Problem Skin Risk Total Score (points) 14 Document 04/27/16 07:45 KMS (Rec: 04/27/16 20:41 KMS [id number]) Skin Risk Assessment Scale Moisture Risk Occasionally Moist Sensory Perception Very Limited Activity Risk Bedfast Mobility Risk Very Limited Nutrition Risk Probably Inadequate Friction & Shear Risk Potential Problem Skin Risk Total Score (points) 12 Document 04/28/16 08:00 JNG(2) (Rec: 04/28/16 08:58 JNG(2) [id number]) Skin Risk Assessment Scale Moisture Risk Occasionally Moist Sensory Perception Very Limited Activity Risk Bedfast Mobility Risk Very Limited Nutrition Risk Probably Inadequate Friction & Shear Risk Potential Problem Skin Risk Total Score (points) 12 Document 04/28/16 21:05 JKB (Rec: 04/29/16 06:15 JKB [id number]) Skin Risk Assessment Scale Moisture Risk Occasionally Moist Sensory Perception Very Limited Activity Risk Bedfast Mobility Risk Very Limited Nutrition Risk Probably Inadequate Friction & Shear Risk Potential Problem Skin Risk Total Score (points) 12 Document 04/29/16 07:00 JNG(2) (Rec: 04/29/16 08:59 JNG(2) [id number]) Skin Risk Assessment Scale Moisture Risk Occasionally Moist Sensory Perception Very Limited Activity Risk Bedfast Mobility Risk Very Limited Nutrition Risk Probably Inadequate Friction & Shear Risk Potential Problem Skin Risk Total Score (points) 12 Social Work Discharge Assessment Start: 05/02/16 07: 26 Freq: Status: Complete Document 05/02/16 07:26 MAS (Rec: 05/02/16 07:33 MAS [id number]) Social Work Discharge Assessment ECF/SNF Agency ECF-[facility] ECF Referral Type Return Reason For Choice Patient Pref Present [facility] Support Service Agency -[facility] Support Services Comment pt. discharged to [facility] under [facility] Outputs Start: 04/24/16 08: 34 Freq: Status: Complete Document 04/24/16 09:31 GENOVEVA (Rec: 04/24/16 09:31 GENOVEVA [id number]) Output Output, Estimated Blood Loss Amount 100 Surgical preparation, skin antisepsis Start: 04/20/16 08: 48 Freq: .ONCE Status: Complete Document 04/20/16 10:07 MWW (Rec: 04/20/16 10:09 MWW [id number]) Surgical preparation, skin antisepsis Start: 04/20/16 10: 06 Freq: .ONCE Status: Complete Document 04/20/16 10:07 MWW (Rec: 04/20/16 10:09 MWW [id number]) System Review Start: 04/19/16 23: 58 Freq: Q4H Status: Complete Document 04/20/16 00:10 JKB (Rec: 04/20/16 07:13 JKB [id number]) Pain Assessment Pain Present Reports No Pain Neurological Assessment Eye Opening To Voice Motor Localizes to Pain Verbal Oriented Coma Scale Total 13 Neurologic Status Responds to voice Patient Orientation Person Arousable To Name Tactile Stimulation Speech Pattern Appropriate Delayed Patient Behavior Cooperative Fatigued Mood Description Calm Bilateral Pupil Reaction Reactive Pupil Size (mm) 2 Pupil [place] Equal Scleral Edema No All Four Limbs Strength Severe Weakness Road Gang Supervisor Strength Bilat Weak Push/Pull Left Greater Than Right Bilat Weak Numbness/Tingling No Facial Symmetry Symmetrical Cardiovascular Assessment Signs and Symptoms Extreme Fatigue Slow Heart Rate Heart Sounds S1 & S2 Pulse Rhythm Regular Capillary Refill < 3 Seconds Circulatory Tenderness Description Left Arm Right Radial 2+ Left Radial 2+ Right Dorsalis Pedis 1+ Left Dorsalis Pedis Unable to Assess Right Posterior Tibialis 1+ Left Posterior Tibialis Unable to Assess Has Confirmed Diagnosis of DVT, PE or No VTE VTE Prophylaxis IV Treatment Platelet Monitoring Mechanical Prophylaxis No Reason Mechanical Device Not Applied Contraindicated Contraindication No VTE Prophylaxis Not indicated-Anticoagulated or INR therapeutic Cardiac Monitoring Heart Rate 59 Rhythm Sinus Bradycardia First Degree Block RI Interval 0.24 QRS Interval 0.17 QT Interval 0.38 Monitor Number [id number] Pest Control Supervisor Limits 100/50 Strip placed in Chart Yes Monitor History Reviewed Yes Memory Cleared Yes Respiratory Assessment Respiratory Symptoms None Effort Normal for Patient Spontaneous Non-Labored Depth Normal Chest Shape Normal All Lung [place] Clear Diminished Oxygen Delivery Method Nasal Cannula Oxygen Flow Rate (LPM) 1 Cough Description None Sputum Amount None Gastrointestinal Assessment Abdomen Description Soft Large Round Nausea/Vomiting Presence None All Four Quadrants Active Flatus Presence Present Genitourinary Assessment Genitourinary Symptoms None Urinary Incontinence Incontinence Total Voiding Method Indwelling Catheter Urine Appearance Clear Color Dark Renee Tea Colored Odor Normal Bladder Distention None Suprapubic Tenderness with Palpation No Comment: hope catheter placed at [facility] Integumentary Assessment Fingernail Color Yellow Nail Bed Appearance Pale Temperature Warm Moisture Dry Turgor Loose Color Normal All Pressure Points Assessed Yes Evidence of Incision/Wounds/Breakdown Yes: left foot dressing in place Mucous membranes moist, pink and intact Yes Oral Cavity Missing Teeth Musculoskeletal Assessment Musculoskeletal Symptoms Generalized Weakness Difficulty Walking Document 04/20/16 04:30 BANNER (Rec: 04/20/16 08:10 BANNER [id number]) Pain Assessment Pain Present Reports Pain Head Pain Intensity 10 Description Ache Scale Used Numeric (1 - 10) Pain Intervention Provider Notified Position Distraction Reduced Environmental Stimuli Darkened Room Comment PT. HAD CT COMPLETED Neurological Assessment Eye Opening To Voice Motor Localizes to Pain Verbal Oriented Coma Scale Total 13 Neurologic Status Responds to voice Patient Orientation Person Arousable To Name Speech Pattern Appropriate Delayed Patient Behavior Cooperative Fatigued Mood Description Anxious Bilateral Pupil Reaction Reactive Pupil Size (mm) 2 Pupil [place] Equal Scleral Edema No All Four Limbs Strength Severe Weakness Road Gang Supervisor Strength Bilat Weak Push/Pull Left Greater Than Right Bilat Weak Numbness/Tingling No Facial Symmetry Symmetrical Cardiovascular Assessment Signs and Symptoms Slow Heart Rate Heart Sounds S1 & S2 Pulse Rhythm Regular Capillary Refill < 3 Seconds Circulatory Tenderness Description Left Arm Right Radial 2+ Left Radial 2+ Right Dorsalis Pedis 1+ Left Dorsalis Pedis Unable to Assess Right Posterior Tibialis 1+ Left Posterior Tibialis Unable to Assess Has Confirmed Diagnosis of DVT, PE or No VTE VTE Prophylaxis IV Treatment Platelet Monitoring Mechanical Prophylaxis No Reason Mechanical Device Not Applied Contraindicated Contraindication No VTE Prophylaxis Not indicated-Anticoagulated or INR therapeutic Cardiac Monitoring Heart Rate 70 Rhythm Sinus Rhythm First Degree Block RI Interval 0.20 QRS Interval 0.12 QT Interval 0.34 Monitor Number [id number] Pest Control Supervisor Limits 100/50 Strip placed in Chart Yes Monitor History Reviewed Yes Memory Cleared Yes Respiratory Assessment Respiratory Symptoms None Effort Normal for Patient Spontaneous Non-Labored Depth Normal Chest Shape Normal All Lung [place] Clear Diminished Oxygen Delivery Method Nasal Cannula Oxygen Flow Rate (LPM) 2 Cough Description None Sputum Amount None Gastrointestinal Assessment Abdomen Description Soft Large Round Nausea/Vomiting Presence None All Four Quadrants Active Flatus Presence Present Genitourinary Assessment Genitourinary Symptoms None Urinary Incontinence Incontinence Total Voiding Method Indwelling Catheter Urine Appearance Clear Color Dark Renee Tea Colored Odor Normal Bladder Distention None Suprapubic Tenderness with Palpation No Comment: hope catheter placed at [place] [facility] Integumentary Assessment Fingernail Color Yellow Nail Bed Appearance Pale Temperature Warm Moisture Dry Turgor Loose Color Normal All Pressure Points Assessed Yes Evidence of Incision/Wounds/Breakdown Yes: left foot dressing in place Mucous membranes moist, pink and intact Yes Oral Cavity Missing Teeth Musculoskeletal Assessment Musculoskeletal Symptoms Generalized Weakness Difficulty Walking Document 04/20/16 07:30 [id number] (Rec: 04/20/16 10:58 [id number]) Pain Assessment Pain Present Reports Pain Left Upper Arm Pain Intensity 7 Description Ache Acute Tender With Movement Scale Used Numeric (1 - 10) Pain Intervention Medication Cardiovascular Assessment Signs and Symptoms Slow Heart Rate Heart Sounds S1 & S2 Pulse Rhythm Regular Jugular Vein Distention None Capillary Refill < 3 Seconds Circulatory Tenderness Description Left Arm Right Radial 2+ Left Radial 2+ Right Dorsalis Pedis 1+ Left Dorsalis Pedis Unable to Assess Right Posterior Tibialis 1+ Left Posterior Tibialis Unable to Assess Chest Pain Complaint No Has Confirmed Diagnosis of DVT, PE or No VTE VTE Prophylaxis IV Treatment Platelet Monitoring Mechanical Prophylaxis No Reason Mechanical Device Not Applied Contraindicated Contraindication No VTE Prophylaxis Not indicated-Anticoagulated or INR therapeutic Cardiac Monitoring Heart Rate 70 Monitoring Method Telemetry Rhythm Sinus Rhythm First Degree Block RI Interval 0.13 QRS Interval 0.07 QT Interval 0.35 Monitor Number [id number] Pest Control Supervisor Limits 100/50 Strip placed in Chart Yes Monitor History Reviewed Yes Memory Cleared Yes Respiratory Assessment Respiratory Symptoms None Effort Normal for Patient Spontaneous Non-Labored Depth Normal Respiratory Pattern Regular Chest Shape Normal Expansion Symmetrical All Lung [place] Clear Diminished Right Upper Lobe Diminished Right Middle Lobe Fine Crackles Right Lower Lobe Fine Crackles Left Upper Lobe Diminished Left Lower Lobe Coarse Crackles Right Upper Lobe Clear Diminished Right Middle Lobe Diminished Right Lower Lobe Fine Crackles Left Upper Lobe Diminished Left Lower Lobe Coarse Crackles Oxygen Delivery Method Nasal Cannula Oxygen Flow Rate (LPM) 2 FIO2 (%) (%) 28 Cough Description None Sputum Amount None Respiratory Comment: Encouraged pt. to cough and deep breathe. Gastrointestinal Assessment Abdomen Description Soft Large Round 3 or more loose stools, in less than 24 No hours Nausea/Vomiting Presence None All Four Quadrants Active Flatus Presence Present Genitourinary Assessment Genitourinary Symptoms None Urinary Incontinence Bladder Pattern Normal Incontinence Total Voiding Method Indwelling Catheter Urine Appearance Clear Color Dark Renee Tea Colored Odor Normal Bladder Distention None Suprapubic Tenderness with Palpation No Comment: Hope cath patent and draining . Integumentary Assessment Fingernail Color Yellow Nail Bed Appearance Pale Temperature Warm Moisture Dry Turgor Loose Color Normal All Pressure Points Assessed Yes Evidence of Incision/Wounds/Breakdown Yes: left foot dressing in place Mucous membranes moist, pink and intact Yes Oral Cavity Missing Teeth Integumentary Comment: Skin C/D. Musculoskeletal Assessment Musculoskeletal Symptoms Generalized Weakness Difficulty Walking Document 04/20/16 16:00 [id number] (Rec: 04/20/16 18:33 [id number]) Pain Assessment Pain Present Reports No Pain Cardiovascular Assessment Signs and Symptoms Slow Heart Rate Heart Sounds S1 & S2 Pulse Rhythm Regular Jugular Vein Distention None Capillary Refill < 3 Seconds Circulatory Tenderness Description Left Arm Right Radial 2+ Left Radial 2+ Right Dorsalis Pedis 1+ Left Dorsalis Pedis Unable to Assess Right Posterior Tibialis 1+ Left Posterior Tibialis Unable to Assess Chest Pain Complaint No Has Confirmed Diagnosis of DVT, PE or No VTE VTE Prophylaxis IV Treatment Platelet Monitoring Mechanical Prophylaxis No Reason Mechanical Device Not Applied Contraindicated Contraindication No VTE Prophylaxis Not indicated-Anticoagulated or INR therapeutic Cardiac Monitoring Heart Rate 94 Monitoring Method Telemetry Rhythm Sinus Rhythm First Degree Block RI Interval 0.09 QRS Interval 0.15 QT Interval 0.32 Monitor Number [id number] Pest Control Supervisor Limits 100/50 Strip placed in Chart Yes Monitor History Reviewed Yes Memory Cleared Yes Respiratory Assessment Respiratory Symptoms None Effort Normal for Patient Spontaneous Non-Labored Depth Normal Respiratory Pattern Regular Chest Shape Normal Expansion Symmetrical All Lung [place] Clear Diminished Right Upper Lobe Diminished Right Middle Lobe Diminished Right Lower Lobe Diminished Left Upper Lobe Diminished Left Lower Lobe Fine Crackles Right Upper Lobe Clear Diminished Right Middle Lobe Diminished Right Lower Lobe Diminished Left Upper Lobe Diminished Left Lower Lobe Fine Crackles Oxygen Delivery Method Room Air FIO2 (%) (%) 21 Cough Description None Sputum Amount None Respiratory Comment: Encouraged pt. to cough and deep breathe. Gastrointestinal Assessment Abdomen Description Soft Large Round 3 or more loose stools, in less than 24 No hours Nausea/Vomiting Presence None All Four Quadrants Active Flatus Presence Present Genitourinary Assessment Genitourinary Symptoms None Urinary Incontinence Bladder Pattern Normal Incontinence Total Voiding Method Indwelling Catheter Urine Appearance Clear Color Dark Yellow Odor Normal Bladder Distention None Suprapubic Tenderness with Palpation No Comment: Hope cath patent and draining . Integumentary Assessment Fingernail Condition Koilonychia Fungal Infection Fingernail Color Yellow Nail Bed Appearance Pale Temperature Warm Moisture Dry Turgor Loose Color Normal All Pressure Points Assessed Yes Evidence of Incision/Wounds/Breakdown Yes: left foot dressing in place Mucous membranes moist, pink and intact Yes Oral Cavity Missing Teeth Integumentary Comment: Skin C/D. Musculoskeletal Assessment Musculoskeletal Symptoms Generalized Weakness Difficulty Walking Document 04/20/16 19:30 DIMPLE (Rec: 04/20/16 21:07 DIMPLE [id number]) Cardiovascular Assessment Signs and Symptoms Slow Heart Rate Heart Sounds S1 & S2 Jugular Vein Distention None Right Radial 2+ Left Radial 2+ Right Dorsalis Pedis 1+ Left Dorsalis Pedis 1+ Has Confirmed Diagnosis of DVT, PE or No VTE VTE Prophylaxis IV Treatment Platelet Monitoring Mechanical Prophylaxis No Reason Mechanical Device Not Applied Contraindicated Contraindication No VTE Prophylaxis Not indicated-Anticoagulated or INR therapeutic Cardiac Monitoring Heart Rate 87 Monitoring Method Telemetry Rhythm Sinus Rhythm RI Interval 0.18 QRS Interval 0.11 QT Interval 0.36 Monitor Number [id number] Pest Control Supervisor Limits 100/50 Strip placed in Chart Yes Monitor History Reviewed Yes Memory Cleared Yes Respiratory Assessment Respiratory Symptoms None Effort Normal for Patient Spontaneous Non-Labored Depth Normal Respiratory Pattern Regular Chest Shape Normal Expansion Symmetrical All Lung [place] Clear Diminished Oxygen Delivery Method Room Air Cough Description Voluntary Non-Productive Cough Frequency Intermittent Sputum Amount None Gastrointestinal Assessment Abdomen Description Soft Non-Tender 3 or more loose stools, in less than 24 No hours Nausea/Vomiting Presence None All Four Quadrants Active Genitourinary Assessment Voiding Method Indwelling Catheter Urine Appearance Clear Color Bright Yellow Odor Normal Bladder Distention None Suprapubic Tenderness with Palpation No Integumentary Assessment Fingernail Color Yellow Nail Bed Appearance [place] Temperature Warm Moisture Dry Turgor Loose Color Normal All Pressure Points Assessed Yes Evidence of Incision/Wounds/Breakdown Yes: see wound record Mucous membranes moist, pink and intact Yes Oral Cavity Missing Teeth Musculoskeletal Assessment Musculoskeletal Symptoms Generalized Weakness System Review ICU/2N Start: 04/20/16 21: 07 Freq: Q4H Status: Discharge Document 04/20/16 23:05 DIMPLE (Rec: 04/20/16 23:20 DIMPLE [id number]) Pain Assessment Pain Present Reports No Pain Neurological Assessment Eye Opening Spontaneous Motor Obeys Commands Verbal Oriented Coma Scale Total 15 Neurologic Status Alert Patient Orientation Person Place Time Arousable To Name Speech Pattern Normal rate Normal rhythm Normal tone Inappropriate to situation Patient Behavior Suspicious Resistive to Care Mood Description Suspicious Bilateral Pupil Reaction Reactive Pupil Size (mm) 2 Pupil [place] Equal Scleral Edema No Cardiovascular Assessment Signs and Symptoms Slow Heart Rate Heart Sounds S1 & S2 Rhythm Regular Pulse Assessment Method Auscultation Mechanical Prophylaxis No Reason Mechanical Device Not Applied Contraindicated Contraindication No VTE Prophylaxis Not indicated-Anticoagulated or INR therapeutic Has Confirmed Diagnosis of DVT, PE or No VTE VTE Prophylaxis IV Treatment Platelet Monitoring Cardiac Monitoring Monitor Number [id number] Strip placed in Chart Yes Memory Cleared Yes Alarms/Limits HR Alarm 50/120 Heart Rate 82 EKG Method Telemetry Rhythm Sinus Rhythm RI Interval 0.14 QRS Interval 0.12 QT Interval 0.46 Respiratory Assessment Respiratory Symptoms None Effort Normal for Patient Spontaneous Non-Labored Depth Normal Respiratory Pattern Regular Chest Shape Normal Expansion Symmetrical All Lung [place] Clear Diminished Oxygen Delivery Method Room Air Cough Description None Sputum Amount None Gastrointestinal Assessment Abdomen Description Soft Non-Tender Nausea/Vomiting Presence None All Four Quadrants Active Genitourinary Assessment Voiding Method Indwelling Catheter Urine Appearance Clear Color Dark Yellow Odor Normal Bladder Distention None Suprapubic Tenderness with Palpation No Musculoskeletal Assessment Musculoskeletal Symptoms Generalized Weakness Document 04/21/16 07:30 [id number] (Rec: 04/21/16 07:50 [id number]) Pain Assessment Pain Present Reports Pain Bilateral Heels Pain Intensity 10 Description Chronic Tender With Movement Scale Used Numeric (1 - 10) Pain Intervention Medication Cardiovascular Assessment Signs and Symptoms Slow Heart Rate Heart Sounds S1 & S2 Pulse Rate 69 Rhythm Regular Pulse Assessment Method Auscultation Right Radial 2+ Left Radial 2+ Right Dorsalis Pedis 1+ Left Dorsalis Pedis Unable to Assess Right Posterior Tibialis 1+ Left Posterior Tibialis Unable to Assess Jugular Vein Distention None Capillary Refill < 3 Seconds Circulatory Tenderness Description Left Arm Chest Pain Complaint No Mechanical Prophylaxis No Reason Mechanical Device Not Applied Contraindicated Contraindication No VTE Prophylaxis Not indicated-Anticoagulated or INR therapeutic Has Confirmed Diagnosis of DVT, PE or No VTE VTE Prophylaxis IV Treatment Platelet Monitoring Cardiac Monitoring Monitor Number [id number] Strip placed in Chart Yes Memory Cleared Yes Alarms/Limits HR Alarm 50/120 Heart Rate 95 EKG Method Telemetry Rhythm Sinus Rhythm RI Interval 0.19 QRS Interval 0.10 QT Interval 0.33 Respiratory Assessment Respiratory Symptoms None Effort Normal for Patient Spontaneous Non-Labored Depth Shallow Respiratory Pattern Regular Chest Shape Normal Expansion Symmetrical All Lung [place] Clear Diminished Right Upper Lobe Diminished Right Middle Lobe Diminished Right Lower Lobe Diminished Left Upper Lobe Diminished Left Lower Lobe Fine Crackles Right Upper Lobe Clear Diminished Right Middle Lobe Diminished Right Lower Lobe Diminished Left Upper Lobe Diminished Left Lower Lobe Fine Crackles Oxygen Delivery Method Room Air FIO2 (%) (%) 21 Cough Description Non-Productive Moist None Cough Frequency Intermittent Sputum Amount None Comment: Encouraged cough and deep breathe to clear secretions. Pt. refusing to wear O2. Gastrointestinal Assessment Abdomen Description Soft Non-Tender 3 or more loose stools, in less than 24 No hours Nausea/Vomiting Presence None GI Comment: No c/s N/V voiced. All Four Quadrants Active Flatus Presence Present Genitourinary Assessment Genitourinary Symptoms Urinary Incontinence Bladder Pattern Normal Incontinence Total Voiding Method Indwelling Catheter Urine Appearance Clear Color Dark Yellow Odor Normal Bladder Distention None Suprapubic Tenderness with Palpation No Comment: Hope cath patent and draining . Integumentary Assessment Fingernail Condition Koilonychia Fungal Infection Fingernail Color Yellow Nail Bed Appearance [place] Temperature Warm Moisture Dry Turgor Loose Color Normal All Pressure Points Assessed Yes Evidence of Incision/Wounds/Breakdown Yes: see wound record Mucous membranes moist, pink and intact Yes Oral Cavity Missing Teeth Integumentary Comment: Skin C/D. Drsg noted to L heel . Musculoskeletal Assessment Musculoskeletal Symptoms Generalized Weakness Document 04/21/16 11:30 [id number] (Rec: 04/21/16 14:03 [id number]) Pain Assessment Pain Present Reports Pain Bilateral Heels Description Chronic Scale Used Mary Ellen (Faces) Pain Intervention Declined Cardiovascular Assessment Signs and Symptoms Slow Heart Rate Heart Sounds S1 & S2 Pulse Rate 70 Rhythm Regular Pulse Assessment Method Auscultation Right Radial 2+ Left Radial 2+ Right Dorsalis Pedis 1+ Left Dorsalis Pedis Unable to Assess Right Posterior Tibialis 1+ Left Posterior Tibialis Unable to Assess Jugular Vein Distention None Capillary Refill < 3 Seconds Circulatory Tenderness Description Left Arm Chest Pain Complaint No Mechanical Prophylaxis No Reason Mechanical Device Not Applied Contraindicated Has Confirmed Diagnosis of DVT, PE or No VTE VTE Prophylaxis IV Treatment Platelet Monitoring Cardiac Monitoring Monitor Number [id number] Strip placed in Chart Yes Memory Cleared Yes Alarms/Limits HR Alarm 50/120 Heart Rate 64 EKG Method Telemetry Rhythm Sinus Rhythm RI Interval 0.23 Respiratory Assessment Respiratory Symptoms None Effort Normal for Patient Spontaneous Non-Labored Depth Shallow Respiratory Pattern Regular Chest Shape Normal Expansion Symmetrical All Lung [place] Clear Diminished Right Upper Lobe Diminished Right Middle Lobe Diminished Right Lower Lobe Diminished Left Upper Lobe Diminished Left Lower Lobe Fine Crackles Right Upper Lobe Clear Diminished Right Middle Lobe Diminished Right Lower Lobe Diminished Left Upper Lobe Diminished Left Lower Lobe Fine Crackles Oxygen Delivery Method Room Air FIO2 (%) (%) 21 Cough Description Non-Productive Moist None Cough Frequency Intermittent Sputum Amount None Comment: Encouraged cough and deep breathe to clear secretions. Pt. refusing to wear O2. Gastrointestinal Assessment Abdomen Description Soft Non-Tender 3 or more loose stools, in less than 24 No hours Nausea/Vomiting Presence None GI Comment: No c/s N/V voiced. All Four Quadrants Active Flatus Presence Present Genitourinary Assessment Genitourinary Symptoms Urinary Incontinence Bladder Pattern Normal Incontinence Total Voiding Method Indwelling Catheter Urine Appearance Clear Color Dark Yellow Odor Normal Bladder Distention None Suprapubic Tenderness with Palpation No Comment: Hope cath patent and draining . Integumentary Assessment Fingernail Condition Koilonychia Fungal Infection Fingernail Color Yellow Nail Bed Appearance [place] Temperature Warm Moisture Dry Turgor Loose Color Normal All Pressure Points Assessed Yes Evidence of Incision/Wounds/Breakdown Yes: see wound record Mucous membranes moist, pink and intact Yes Oral Cavity Missing Teeth Integumentary Comment: Skin C/D. Drsg noted to L heel . Musculoskeletal Assessment Musculoskeletal Symptoms Generalized Weakness Document 04/21/16 16:00 [id number] (Rec: 04/21/16 17:40 [id number]) Pain Assessment Pain Present Reports Pain Bilateral Heels Description Sharp Chronic Tender Shooting With Movement Scale Used Mary Ellen (Faces) Pain Intervention Declined Cardiovascular Assessment Signs and Symptoms Slow Heart Rate Heart Sounds S1 & S2 Pulse Rate 67 Rhythm Regular Pulse Assessment Method Auscultation Right Radial 2+ Left Radial 2+ Right Dorsalis Pedis Unable to Assess Left Dorsalis Pedis Weak Right Posterior Tibialis Unable to Assess Left Posterior Tibialis Weak Jugular Vein Distention None Capillary Refill < 3 Seconds Circulatory Tenderness Description Left Arm Chest Pain Complaint No Mechanical Prophylaxis No Reason Mechanical Device Not Applied Contraindicated Cardiac Monitoring Monitor Number [id number] Strip placed in Chart Yes Memory Cleared Yes Alarms/Limits HR Alarm 50/120 EKG Method Telemetry Rhythm Sinus Rhythm Respiratory Assessment Respiratory Symptoms None Effort Normal for Patient Spontaneous Non-Labored Depth Normal Respiratory Pattern Regular Chest Shape Normal Expansion Symmetrical All Lung Ar[place] Clear Diminished Right Upper Lobe Diminished Right Middle Lobe Diminished Right Lower Lobe Diminished Left Upper Lobe Diminished Left Lower Lobe Fine Crackles Right Upper Lobe Clear Diminished Right Middle Lobe Diminished Right Lower Lobe Diminished Left Upper Lobe Diminished Left Lower Lobe Fine Crackles Oxygen Delivery Method Room Air FIO2 (%) (%) 21 Cough Description Non-Productive Moist None Cough Frequency Intermittent Sputum Amount None Comment: Encouraged cough and deep breathe to clear secretions. Pt. refusing to wear O2. Gastrointestinal Assessment Abdomen Description Soft Non-Tender 3 or more loose stools, in less than 24 No hours Nausea/Vomiting Presence None GI Comment: No c/s N/V voiced. All Four Quadrants Active Flatus Presence Present Genitourinary Assessment Genitourinary Symptoms Urinary Incontinence Bladder Pattern Normal Incontinence Total Voiding Method Indwelling Catheter Urine Appearance Clear Color Dark Yellow Odor Normal Bladder Distention None Suprapubic Tenderness with Palpation No Comment: Hope cath patent and draining . Integumentary Assessment Fingernail Condition Koilonychia Fungal Infection Fingernail Color Yellow Nail Bed Appearance [place] Temperature Warm Moisture Dry Turgor Loose Color Normal All Pressure Points Assessed Yes Evidence of Incision/Wounds/Breakdown Yes: see wound record Mucous membranes moist, pink and intact Yes Oral Cavity Missing Teeth Integumentary Comment: Skin C/D. Drsg noted to L heel . Musculoskeletal Assessment Musculoskeletal Symptoms Generalized Weakness Document 04/21/16 20:00 KORIN (Rec: 04/21/16 20:14 KORIN [id number]) Pain Assessment Pain Present Reports No Pain Neurological Assessment Eye Opening Spontaneous Motor Obeys Commands Verbal Oriented Coma Scale Total 15 Neurologic Status Responds to voice Patient Orientation Person Place Arousable To Name Speech Pattern Normal rate Normal rhythm Normal tone Coherent Patient Behavior Aggressive Uncooperative Guarded Suspicious Belligerent Resistive to Care Mood Description Fearful Suspicious Anxious Bilateral Pupil Reaction Reactive Pupil Size (mm) 2 Pupil [place] Equal Sensory Vision impaired All Four Limbs Strength Mild Weakness Road Gang Supervisor Strength Equal Push/Pull Equal Right Greater Than Left Numbness/Tingling No Facial Symmetry Symmetrical Blink Present Cough/Gag Normal Neurological Comment: Pt. A&O x2, tongue midline without deviation. 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 Cardiovascular Assessment Signs and Symptoms Irregular Heart Rhythm Arrhythmia on Telemetry Heart Sounds S1 & S2 Pulse Rate 73 Rhythm Irregular Pulse Assessment Method Auscultation Right Radial 2+ Left Radial 2+ Right Dorsalis Pedis Unable to Assess Left Dorsalis Pedis Weak Right Posterior Tibialis Unable to Assess Left Posterior Tibialis Weak Jugular Vein Distention None Capillary Refill < 3 Seconds Circulatory Tenderness Description Left Arm Chest Pain Complaint No Mechanical Prophylaxis No Reason Mechanical Device Not Applied Contraindicated Cardiac Monitoring Monitor Number [id number] Strip placed in Chart Yes History Reviewed Yes Memory Cleared No Alarms/Limits HR Alarm 50/100 Heart Rate 71 EKG Method Telemetry Rhythm Sinus Rhythm Respiratory Assessment Respiratory Symptoms None Effort Normal for Patient Spontaneous Non-Labored Depth Normal Respiratory Pattern Regular Chest Shape Normal Expansion Symmetrical All Lung [place] Clear Diminished Right Upper Lobe Diminished Right Middle Lobe Diminished Right Lower Lobe Diminished Left Upper Lobe Diminished Left Lower Lobe Fine Crackles Right Upper Lobe Clear Diminished Right Middle Lobe Diminished Right Lower Lobe Diminished Left Upper Lobe Diminished Left Lower Lobe Fine Crackles Oxygen Delivery Method Room Air Cough Description Non-Productive Moist None Cough Frequency Intermittent Sputum Amount None Gastrointestinal Assessment Abdomen Description Soft Non-Tender 3 or more loose stools, in less than 24 No hours Nausea/Vomiting Presence None All Four Quadrants Active Flatus Presence Present Genitourinary Assessment Genitourinary Symptoms Urinary Incontinence Bladder Pattern Normal Incontinence Total Voiding Method Indwelling Catheter Urine Appearance Clear Color Dark Yellow Odor Normal Bladder Distention None Suprapubic Tenderness with Palpation No Comment: Hope cath patent and draining . Integumentary Assessment Fingernail Condition Koilonychia Fungal Infection Fingernail Color Yellow Nail Bed Appearance [place] Temperature Warm Moisture Dry Turgor Loose Color Normal All Pressure Points Assessed Yes Evidence of Incision/Wounds/Breakdown Yes: see wound record Mucous membranes moist, pink and intact Yes Oral Cavity Missing Teeth Integumentary Comment: Skin C/D. Drsg noted to L heel . Musculoskeletal Assessment Musculoskeletal Symptoms Generalized Weakness Document 04/22/16 00:00 KORIN (Rec: 04/22/16 08:36 [id number]) Pain Assessment Pain Present Reports No Pain Neurological Assessment Eye Opening Spontaneous Motor Obeys Commands Verbal Oriented Coma Scale Total 15 Neurologic Status Responds to voice Patient Orientation Person Place Arousable To Name Speech Pattern Normal rate Normal rhythm Normal tone Coherent Patient Behavior Aggressive Uncooperative Guarded Suspicious Belligerent Resistive to Care Mood Description Fearful Suspicious Anxious Bilateral Pupil Reaction Reactive Pupil Size (mm) 2 Pupil [place] Equal Sensory Vision impaired All Four Limbs Strength Mild Weakness Road Gang Supervisor Strength Equal Push/Pull Equal Right Greater Than Left Numbness/Tingling No Facial Symmetry Symmetrical Blink Present Cough/Gag Normal Neurological Comment: Pt. A&O x2, tongue midline without deviation. 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 Cardiovascular Assessment Signs and Symptoms Irregular Heart Rhythm Arrhythmia on Telemetry Heart Sounds S1 & S2 Pulse Rate 73 Rhythm Irregular Pulse Assessment Method Auscultation Right Radial 2+ Left Radial 2+ Right Dorsalis Pedis Unable to Assess Left Dorsalis Pedis Weak Right Posterior Tibialis Unable to Assess Left Posterior Tibialis Weak Jugular Vein Distention None Capillary Refill < 3 Seconds Circulatory Tenderness Description Left Arm Chest Pain Complaint No Mechanical Prophylaxis No Reason Mechanical Device Not Applied Contraindicated Cardiac Monitoring Monitor Number [id number] Strip placed in Chart Yes History Reviewed Yes Memory Cleared No Alarms/Limits HR Alarm 50/100 Heart Rate 74 EKG Method Telemetry Rhythm Sinus Arrhythmia First Degree Block Unifocal PVC's RI Interval 0.29 QRS Interval 0.12 QT Interval 0.39 Respiratory Assessment Respiratory Symptoms None Effort Normal for Patient Spontaneous Non-Labored Depth Normal Respiratory Pattern Regular Chest Shape Normal Expansion Symmetrical All Lung [place] Clear Diminished Right Upper Lobe Diminished Right Middle Lobe Diminished Right Lower Lobe Diminished Left Upper Lobe Diminished Left Lower Lobe Fine Crackles Right Upper Lobe Clear Diminished Right Middle Lobe Diminished Right Lower Lobe Diminished Left Upper Lobe Diminished Left Lower Lobe Fine Crackles Oxygen Delivery Method Room Air Cough Description Non-Productive Moist None Cough Frequency Intermittent Sputum Amount None Comment: PT. REFUSING TO WEAR to wear O2. Gastrointestinal Assessment Abdomen Description Soft Non-Tender 3 or more loose stools, in less than 24 No hours Nausea/Vomiting Presence None GI Comment: No c/s N/V voiced. All Four Quadrants Active Flatus Presence Present Genitourinary Assessment Genitourinary Symptoms Urinary Incontinence Bladder Pattern Normal Incontinence Total Voiding Method Indwelling Catheter Urine Appearance Clear Color Dark Yellow Odor Normal Bladder Distention None Suprapubic Tenderness with Palpation No Comment: Hope cath patent and draining . Integumentary Assessment Fingernail Condition Koilonychia Fungal Infection Fingernail Color Yellow Nail Bed Appearance [place] Temperature Warm Moisture Dry Turgor Loose Color Normal All Pressure Points Assessed Yes Evidence of Incision/Wounds/Breakdown Yes: see wound record Mucous membranes moist, pink and intact Yes Oral Cavity Missing Teeth Integumentary Comment: Skin C/D. Drsg noted to L heel . Musculoskeletal Assessment Musculoskeletal Symptoms Generalized Weakness Document 04/22/16 03:45 JKB (Rec: 04/22/16 08:41 [id number]) Pain Assessment Pain Present Reports Pain Posterior Pain Intensity 10 Description Ache Scale Used Numeric (1 - 10) Pain Intervention Position Reduced Environmental Stimuli Darkened Room Bilateral Heels Pain Intensity 0 Neurological Assessment Eye Opening Spontaneous Motor Obeys Commands Verbal Oriented Coma Scale Total 15 Neurologic Status Responds to voice Patient Orientation Person Place Arousable To Name Speech Pattern Normal rate Normal rhythm Normal tone Coherent Patient Behavior Aggressive Uncooperative Guarded Suspicious Belligerent Resistive to Care Mood Description Fearful Suspicious Anxious Bilateral Pupil Reaction Reactive Pupil Size (mm) 2 Pupil [place] Equal Sensory Vision impaired All Four Limbs Strength Mild Weakness Road Gang Supervisor Strength Equal Push/Pull Equal Right Greater Than Left Numbness/Tingling No Facial Symmetry Symmetrical Blink Present Cough/Gag Normal Neurological Comment: Pt. A&O x2, tongue midline without deviation. 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 Cardiovascular Assessment Signs and Symptoms Irregular Heart Rhythm Arrhythmia on Telemetry Heart Sounds S1 & S2 Pulse Rate 91 Rhythm Irregular Pulse Assessment Method Auscultation Right Radial 2+ Left Radial 2+ Right Dorsalis Pedis Unable to Assess Left Dorsalis Pedis Weak Right Posterior Tibialis Unable to Assess Left Posterior Tibialis Weak Jugular Vein Distention None Capillary Refill < 3 Seconds Circulatory Tenderness Description Left Arm Chest Pain Complaint No Mechanical Prophylaxis No Reason Mechanical Device Not Applied Contraindicated Cardiac Monitoring Monitor Number [id number] Strip placed in Chart Yes History Reviewed Yes Memory Cleared No Alarms/Limits HR Alarm 50/100 Heart Rate 91 EKG Method Telemetry Rhythm Sinus Arrhythmia First Degree Block Unifocal PVC's RI Interval 0.25 QRS Interval 0.10 QT Interval 0.38 Respiratory Assessment Respiratory Symptoms None Effort Normal for Patient Spontaneous Non-Labored Depth Normal Respiratory Pattern Regular Chest Shape Normal Expansion Symmetrical All Lung [place] Clear Diminished Right Upper Lobe Diminished Right Middle Lobe Diminished Right Lower Lobe Diminished Left Upper Lobe Diminished Left Lower Lobe Fine Crackles Right Upper Lobe Clear Diminished Right Middle Lobe Diminished Right Lower Lobe Diminished Left Upper Lobe Diminished Left Lower Lobe Fine Crackles Oxygen Delivery Method Room Air Oxygen Flow Rate (LPM) 2 FIO2 (%) (%) 21 Cough Description Non-Productive Moist None Cough Frequency Intermittent Sputum Amount None Comment: PT. REFUSING TO WEAR to wear O2. Gastrointestinal Assessment Abdomen Description Soft Non-Tender 3 or more loose stools, in less than 24 No hours Nausea/Vomiting Presence None GI Comment: No c/s N/V voiced. All Four Quadrants Active Flatus Presence Present Genitourinary Assessment Genitourinary Symptoms Urinary Incontinence Bladder Pattern Normal Incontinence Total Voiding Method Indwelling Catheter Urine Appearance Clear Color Dark Yellow Odor Normal Bladder Distention None Suprapubic Tenderness with Palpation No Comment: Hope cath patent and draining . Integumentary Assessment Fingernail Condition Koilonychia Fungal Infection Fingernail Color Yellow Nail Bed Appearance [place] Temperature Warm Moisture Dry Turgor Loose Color Normal All Pressure Points Assessed Yes Evidence of Incision/Wounds/Breakdown Yes: see wound record Mucous membranes moist, pink and intact Yes Oral Cavity Missing Teeth Integumentary Comment: Skin C/D. Drsg noted to L heel . Musculoskeletal Assessment Musculoskeletal Symptoms Generalized Weakness Document 04/22/16 10:43 [facility] (Rec: 04/22/16 11:00 [facility] [id number]) Pain Assessment Pain Present Reports No Pain Neurological Assessment Eye Opening Spontaneous Motor Obeys Commands Verbal Oriented Coma Scale Total 15 Neurologic Status Responds to voice Patient Orientation Person Place Arousable To Name Speech Pattern Normal rate Normal rhythm Normal tone Coherent Patient Behavior Aggressive Uncooperative Guarded Suspicious Belligerent Resistive to Care Mood Description Fearful Suspicious Anxious Bilateral Pupil Reaction Reactive Pupil Size (mm) 2 Pupil [place] Equal Sensory Vision impaired All Four Limbs Strength Mild Weakness Road Gang Supervisor Strength Equal Push/Pull Equal Right Greater Than Left Numbness/Tingling No Facial Symmetry Symmetrical Cardiovascular Assessment Signs and Symptoms Irregular Heart Rhythm Arrhythmia on Telemetry Heart Sounds S1 & S2 Pulse Rate 77 Rhythm Irregular Pulse Assessment Method Auscultation Right Radial 2+ Left Radial 2+ Right Dorsalis Pedis Unable to Assess Left Dorsalis Pedis Weak Right Posterior Tibialis Unable to Assess Left Posterior Tibialis Weak Jugular Vein Distention None Capillary Refill < 3 Seconds Circulatory Tenderness Description Left Arm Mechanical Prophylaxis No Reason Mechanical Device Not Applied Contraindicated Cardiac Monitoring Monitor Number [id number] Strip placed in Chart Yes History Reviewed Yes Memory Cleared No Alarms/Limits HR Alarm 50/100 Heart Rate 77 EKG Method Telemetry Rhythm Atrial Fibrillation QRS Interval 0.11 QT Interval 0.47 Respiratory Assessment Respiratory Symptoms None Effort Normal for Patient Spontaneous Non-Labored Depth Normal Respiratory Pattern Regular Chest Shape Normal Expansion Symmetrical All Lung [place] Clear Diminished Oxygen Delivery Method Room Air Cough Description Non-Productive Moist None Cough Frequency Intermittent Sputum Amount None Gastrointestinal Assessment Abdomen Description Soft Non-Tender 3 or more loose stools, in less than 24 No hours Nausea/Vomiting Presence None All Four Quadrants Active Flatus Presence Present Genitourinary Assessment Genitourinary Symptoms Urinary Incontinence Bladder Pattern Normal Incontinence Total Voiding Method Indwelling Catheter Urine Appearance Clear Color Dark Yellow Odor Normal Bladder Distention None Suprapubic Tenderness with Palpation No Integumentary Assessment Fingernail Condition Koilonychia Fungal Infection Fingernail Color Yellow Nail Bed Appearance [place] Temperature Warm Moisture Dry Turgor Loose Color Normal All Pressure Points Assessed Yes Evidence of Incision/Wounds/Breakdown Yes: see wound record Mucous membranes moist, pink and intact Yes Oral Cavity Missing Teeth Musculoskeletal Assessment Musculoskeletal Symptoms Generalized Weakness Document 04/22/16 11:45 [facility] (Rec: 04/22/16 12:32 [facility] [id number]) Cardiovascular Assessment Signs and Symptoms Irregular Heart Rhythm Arrhythmia on Telemetry Heart Sounds S1 & S2 Pulse Rate 94 Rhythm Regular Pulse Assessment Method Auscultation Right Radial 2+ Left Radial 2+ Right Dorsalis Pedis Unable to Assess Left Dorsalis Pedis Weak Right Posterior Tibialis Unable to Assess Left Posterior Tibialis Weak Jugular Vein Distention None Capillary Refill < 3 Seconds Circulatory Tenderness Description Left Arm Mechanical Prophylaxis No Reason Mechanical Device Not Applied Contraindicated Cardiac Monitoring Monitor Number [id number] Strip placed in Chart Yes History Reviewed Yes Memory Cleared No Alarms/Limits HR Alarm 50/100 Heart Rate 55 EKG Method Telemetry Rhythm Sinus Rhythm First Degree Block RI Interval 0.33 QRS Interval 0.09 QT Interval 0.38 Respiratory Assessment Respiratory Symptoms None Effort Normal for Patient Spontaneous Non-Labored Depth Normal Respiratory Pattern Regular Chest Shape Normal Expansion Symmetrical All Lung [place] Clear Diminished Right Upper Lobe Diminished Right Middle Lobe Diminished Right Lower Lobe Diminished Left Upper Lobe Diminished Left Lower Lobe Fine Crackles Right Upper Lobe Clear Diminished Right Middle Lobe Diminished Right Lower Lobe Diminished Left Upper Lobe Diminished Left Lower Lobe Fine Crackles Oxygen Delivery Method Nasal Cannula Oxygen Flow Rate (LPM) 2 FIO2 (%) (%) 21 Cough Description Non-Productive Moist None Cough Frequency Intermittent Sputum Amount None Gastrointestinal Assessment Abdomen Description Soft Non-Tender 3 or more loose stools, in less than 24 No hours Nausea/Vomiting Presence None All Four Quadrants Active Flatus Presence Present Genitourinary Assessment Genitourinary Symptoms Urinary Incontinence Bladder Pattern Normal Incontinence Total Voiding Method Indwelling Catheter Urine Appearance Clear Color Dark Yellow Odor Normal Bladder Distention None Suprapubic Tenderness with Palpation No Integumentary Assessment Fingernail Condition Koilonychia Fungal Infection Fingernail Color Yellow Nail Bed Appearance [place] Temperature Warm Moisture Dry Turgor Loose Color Normal All Pressure Points Assessed Yes Evidence of Incision/Wounds/Breakdown Yes: see wound record Mucous membranes moist, pink and intact Yes Oral Cavity Missing Teeth Musculoskeletal Assessment Musculoskeletal Symptoms Generalized Weakness Document 04/22/16 15:21 [facility] (Rec: 04/22/16 15:25 [facility] [id number]) Pain Assessment Pain Present Reports No Pain Cardiovascular Assessment Signs and Symptoms Irregular Heart Rhythm Arrhythmia on Telemetry Heart Sounds S1 & S2 Pulse Rate 55 Rhythm Regular Pulse Assessment Method Auscultation Right Radial 2+ Left Radial 2+ Right Dorsalis Pedis Unable to Assess Left Dorsalis Pedis Weak Right Posterior Tibialis Unable to Assess Left Posterior Tibialis Weak Jugular Vein Distention None Capillary Refill < 3 Seconds Circulatory Tenderness Description Left Arm Mechanical Prophylaxis No Reason Mechanical Device Not Applied Contraindicated Cardiac Monitoring Monitor Number [id number] Strip placed in Chart Yes History Reviewed Yes Memory Cleared No Alarms/Limits HR Alarm 50/100 Heart Rate 55 EKG Method Telemetry Rhythm Sinus Rhythm First Degree Block RI Interval 0.26 QRS Interval 0.10 QT Interval 0.44 Respiratory Assessment Respiratory Symptoms None Effort Normal for Patient Spontaneous Non-Labored Depth Normal Respiratory Pattern Regular Chest Shape Normal Expansion Symmetrical All Lung Arreguin Expiratory Rhonchi Oxygen Delivery Method Nasal Cannula Oxygen Flow Rate (LPM) 2 FIO2 (%) (%) 21 Cough Description Non-Productive Moist None Cough Frequency Intermittent Sputum Amount None Gastrointestinal Assessment Abdomen Description Soft Non-Tender 3 or more loose stools, in less than 24 No hours Nausea/Vomiting Presence None All Four Quadrants Active Genitourinary Assessment Genitourinary Symptoms Urinary Incontinence Bladder Pattern Normal Incontinence Total Voiding Method Indwelling Catheter Urine Appearance Clear Color Dark Yellow Odor Normal Bladder Distention None Suprapubic Tenderness with Palpation No Integumentary Assessment Fingernail Condition [place] Fungal Infection Fingernail Color Yellow Nail Bed Appearance [place] Temperature Warm Moisture Dry [place] Loose Color Normal All Pressure Points Assessed Yes Evidence of Incision/Wounds/Breakdown Yes: see wound record Mucous membranes moist, pink and intact Yes Oral Cavity Missing Teeth Musculoskeletal Assessment Musculoskeletal Symptoms Generalized Weakness Document 04/22/16 20:20 JCL (Rec: 04/22/16 22:11 [id number]) Pain Assessment Pain Present Reports No Pain Neurological Assessment Eye Opening Spontaneous Motor Obeys Commands Verbal Confused Coma Scale Total 14 Neurologic Status Alert Patient Orientation Person Place Arousable To Name Speech Pattern Normal rate Normal rhythm Normal tone Coherent Inappropriate to situation Patient Behavior Appropriate Cooperative Mood Description Calm Relaxed Left Pupil Reaction Reactive Pupil Size (mm) 2 Pupil [place] Equal Right Pupil Reaction Unreactive Pupil Size (mm) 2 Pupil [place] Equal Sensory Vision impaired All Four Limbs Strength Mild Weakness Road Gang Supervisor Strength Equal Push/Pull Equal Numbness/Tingling No Facial Symmetry Symmetrical Neurological Comment: Patient's tongue midline without deviation. 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 Cardiovascular Assessment Signs and Symptoms None Heart Sounds S1 & S2 Rhythm Regular Right Radial 2+ Left Radial 2+ Right Dorsalis Pedis Doppler Left Dorsalis Pedis Doppler Right Posterior Tibialis Doppler Left Posterior Tibialis Unable to Assess Jugular Vein Distention None Capillary Refill < 3 Seconds Circulatory Tenderness Description Left Arm None Chest Pain Complaint No Mechanical Prophylaxis No Reason Mechanical Device Not Applied Contraindicated Cardiac Monitoring Monitor Number [id number] Strip placed in Chart Yes History Reviewed Yes Memory Cleared Yes Alarms/Limits HR Alarm 120/50 SBP Alarm 160/90 SPO2 Alarm 100/90 Heart Rate 72 EKG Method Telemetry Rhythm Sinus Rhythm First Degree Block RI Interval 0.28 QRS Interval 0.11 QT Interval 0.31 Respiratory Assessment Respiratory Symptoms None Effort Normal for Patient Spontaneous Non-Labored Depth Normal Respiratory Pattern Regular Chest Shape Normal Expansion Symmetrical Right Upper Lobe Diminished Right Middle Lobe Diminished Right Lower Lobe Diminished Left Upper Lobe Diminished Left Lower Lobe Diminished Right Upper Lobe Diminished Right Middle Lobe Diminished Right Lower Lobe Diminished Left Upper Lobe Diminished Left Lower Lobe Diminished Oxygen Delivery Method Nasal Cannula Oxygen Flow Rate (LPM) 1.5 Cough Description None Sputum Amount None Comment: . Gastrointestinal Assessment Abdomen Description Soft Non-Tender 3 or more loose stools, in less than 24 No hours Nausea/Vomiting Presence None GI Comment: . All Four Quadrants Active Genitourinary Assessment Genitourinary Symptoms None Bladder Pattern Normal Voiding Method Indwelling Catheter Urine Appearance Sediment Color Dark Yellow Odor Normal Bladder Distention None Suprapubic Tenderness with Palpation No Comment: . Integumentary Assessment Fingernail Color Yellow Nail Bed Appearance [place] Temperature Warm Moisture Dry Turgor Loose Color Normal All Pressure Points Assessed Yes Evidence of Incision/Wounds/Breakdown Yes: see wound record Mucous membranes moist, pink and intact Yes Oral Cavity Missing Teeth Integumentary Comment: . Musculoskeletal Assessment Musculoskeletal Symptoms Generalized Weakness Document 04/22/16 23:42 JC (Rec: 04/23/16 01:40 JC [id number]) Pain Assessment Pain Present Reports Pain Bilateral Heels Pain Intensity 9 Description Burning Ache Scale Used Numeric (1 - 10) Pain Intervention Medication Comment Patient given PO pain medication per request as ordered. Neurological Assessment Eye Opening Spontaneous Motor Obeys Commands Verbal Confused Coma Scale Total 14 Neurologic Status Alert Patient Orientation Person Place Arousable To Name Speech Pattern Normal rate Normal rhythm Normal tone Coherent Inappropriate to situation Patient Behavior Appropriate Cooperative Mood Description Calm Relaxed Cardiovascular Assessment Signs and Symptoms None Heart Sounds S1 & S2 Rhythm Regular Chest Pain Complaint No Mechanical Prophylaxis No Reason Mechanical Device Not Applied Contraindicated Cardiac Monitoring Monitor Number [id number] Strip placed in Chart Yes History Reviewed Yes Memory Cleared Yes Alarms/Limits HR Alarm 120/50 SBP Alarm 160/90 SPO2 Alarm 100/90 Heart Rate 71 EKG Method Telemetry Rhythm Sinus Rhythm First Degree Block Bundle Branch Block RI Interval 0.27 QRS Interval 0.13 QT Interval 0.42 Respiratory Assessment Respiratory Symptoms None Effort Normal for Patient Spontaneous Non-Labored Depth Normal Respiratory Pattern Regular Chest Shape Normal Expansion Symmetrical Right Upper Lobe Clear Right Middle Lobe Clear Right Lower Lobe Clear Left Upper Lobe Clear Left Lower Lobe Clear Right Upper Lobe Clear Diminished Right Middle Lobe Clear Diminished Right Lower Lobe Clear Diminished Left Upper Lobe Clear Diminished Left Lower Lobe Clear Diminished Oxygen Delivery Method Nasal Cannula Oxygen Flow Rate (LPM) 1.5 FIO2 (%) (%) 21 Cough Description None Cough Frequency Intermittent Sputum Amount None Comment: . Document 04/23/16 04:25 JC (Rec: 04/23/16 05:00 [facility] [id number]) Neurological Assessment Eye Opening Spontaneous Motor Obeys Commands Verbal Confused Coma Scale Total 14 Cardiovascular Assessment Signs and Symptoms None Heart Sounds S1 & S2 Rhythm Regular Chest Pain Complaint No Mechanical Prophylaxis No Reason Mechanical Device Not Applied Contraindicated Cardiac Monitoring Monitor Number [id number] Strip placed in Chart Yes History Reviewed Yes Memory Cleared Yes Alarms/Limits HR Alarm 120/50 SBP Alarm 160/90 SPO2 Alarm 100/90 Heart Rate 67 EKG Method Telemetry Rhythm Sinus Rhythm First Degree Block PAC Cardiac Ectopy PAC's RI Interval 0.27 QRS Interval 0.09 QT Interval 0.44 Respiratory Assessment Respiratory Symptoms None Effort Normal for Patient Spontaneous Non-Labored Depth Normal Respiratory Pattern Regular Chest Shape Normal Expansion Symmetrical Right Upper Lobe Clear Right Middle Lobe Clear Right Lower Lobe Clear Left Upper Lobe Clear Left Lower Lobe Clear Right Upper Lobe Clear Diminished Right Middle Lobe Clear Diminished Right Lower Lobe Clear Diminished Left Upper Lobe Clear Diminished Left Lower Lobe Clear Diminished Oxygen Delivery Method Nasal Cannula Oxygen Flow Rate (LPM) 1.5 FIO2 (%) (%) 21 Cough Description None Sputum Amount None Comment: . Document 04/23/16 07:30 [facility] (Rec: 04/23/16 09:49 [facility] [id number]) Neurological Assessment Eye Opening Spontaneous Motor Obeys Commands Verbal Confused Coma Scale Total 14 Neurologic Status Agitation/Confusion Patient Orientation Person Place Arousable To Name Speech Pattern Coherent Inappropriate to situation Patient Behavior Restless Belligerent Impulsive Left Pupil Reaction Reactive Pupil Size (mm) 2 Pupil [place] Equal Right Pupil Reaction Unreactive Pupil Size (mm) 2 Pupil [place] Equal Sensory Vision impaired All Four Limbs Strength Mild Weakness Road Gang Supervisor Strength Equal Push/Pull Equal Numbness/Tingling No Facial Symmetry Symmetrical Cardiovascular Assessment Signs and Symptoms None Heart Sounds S1 & S2 Pulse Rate 66 Rhythm Regular Pulse Assessment Method Auscultation Right Radial 2+ Left Radial 2+ Right Dorsalis Pedis Doppler Left Dorsalis Pedis Doppler Right Posterior Tibialis Doppler Left Posterior Tibialis Unable to Assess Jugular Vein Distention None Capillary Refill < 3 Seconds Circulatory Tenderness Description Left Arm None Mechanical Prophylaxis No Reason Mechanical Device Not Applied Contraindicated Cardiac Monitoring Monitor Number [id number] Strip placed in Chart Yes History Reviewed Yes Memory Cleared Yes Alarms/Limits HR Alarm 120/50 SBP Alarm 160/90 SPO2 Alarm 100/90 Heart Rate 61 EKG Method Telemetry Rhythm Sinus Rhythm First Degree Block RI Interval 0.26 QRS Interval 0.11 QT Interval 0.34 Respiratory Assessment Respiratory Symptoms None Effort Normal for Patient Spontaneous Non-Labored Depth Normal Respiratory Pattern Regular Chest Shape Normal Expansion Symmetrical All Lung [place] Expiratory Rhonchi Oxygen Delivery Method Nasal Cannula Oxygen Flow Rate (LPM) 1.5 FIO2 (%) (%) 21 Cough Description None Cough Frequency Intermittent Sputum Amount None Gastrointestinal Assessment Abdomen Description Soft Non-Tender 3 or more loose stools, in less than 24 No hours Nausea/Vomiting Presence None All Four Quadrants Active Flatus Presence Present Genitourinary Assessment Genitourinary Symptoms None Bladder Pattern Normal Incontinence Total Voiding Method Indwelling Catheter Urine Appearance Sediment Color Dark Yellow Odor Normal Bladder Distention None Suprapubic Tenderness with Palpation No Integumentary Assessment Fingernail Condition [place] Fungal Infection Fingernail Color Yellow Nail Bed Appearance [place] Temperature Warm Moisture Dry [place] Loose Color Normal All Pressure Points Assessed Yes Evidence of Incision/Wounds/Breakdown Yes: see wound record Mucous membranes moist, pink and intact Yes Oral Cavity Missing Teeth Musculoskeletal Assessment Musculoskeletal Symptoms Generalized Weakness Document 04/23/16 11:15 [facility] (Rec: 04/23/16 12:30 [facility] [id number]) Neurological Assessment Eye Opening Spontaneous Motor Obeys Commands Verbal Confused Coma Scale Total 14 Neurologic Status Agitation/Confusion Patient Orientation Person Place Arousable To Name Speech Pattern Coherent Inappropriate to situation Patient Behavior Restless Belligerent Impulsive Mood Description Calm Relaxed Left Pupil Reaction Reactive Pupil Size (mm) 2 Pupil [place] Equal Right Pupil Reaction Unreactive Pupil Size (mm) 2 Pupil [place] Equal All Four Limbs Strength Mild Weakness Road Gang Supervisor Strength Equal Push/Pull Equal Numbness/Tingling No Facial Symmetry Symmetrical Cardiovascular Assessment Signs and Symptoms None Heart Sounds S1 & S2 Pulse Rate 71 Rhythm Regular Pulse Assessment Method Auscultation Right Radial 2+ Left Radial 2+ Right Dorsalis Pedis Doppler Left Dorsalis Pedis Doppler Right Posterior Tibialis Doppler Left Posterior Tibialis Unable to Assess Jugular Vein Distention None Capillary Refill < 3 Seconds Circulatory Tenderness Description Left Arm None Mechanical Prophylaxis No Reason Mechanical Device Not Applied Contraindicated Cardiac Monitoring Monitor Number [id number] Strip placed in Chart Yes History Reviewed Yes Memory Cleared Yes Alarms/Limits HR Alarm 120/50 SBP Alarm 160/90 SPO2 Alarm 100/90 Heart Rate 70 EKG Method Telemetry Rhythm Sinus Rhythm RI Interval 0.29 QRS Interval 0.12 QT Interval 0.41 Respiratory Assessment Respiratory Symptoms None Effort Normal for Patient Spontaneous Non-Labored Depth Normal Respiratory Pattern Regular Chest Shape Normal Expansion Symmetrical All Lung [place] Expiratory Rhonchi Oxygen Delivery Method Nasal Cannula Oxygen Flow Rate (LPM) 1.5 FIO2 (%) (%) 21 Cough Description None Cough Frequency Intermittent Sputum Amount None Gastrointestinal Assessment Abdomen Description Soft Non-Tender 3 or more loose stools, in less than 24 No hours Nausea/Vomiting Presence None All Four Quadrants Active Flatus Presence Present Genitourinary Assessment Genitourinary Symptoms None Bladder Pattern Normal Incontinence Total Voiding Method Indwelling Catheter Urine Appearance Sediment Color Dark Yellow Odor Normal Bladder Distention None Suprapubic Tenderness with Palpation No Integumentary Assessment Fingernail Condition [place] Fungal Infection Fingernail Color Yellow Nail Bed Appearance [place] Temperature Warm Moisture Dry [place] Loose Color Normal All Pressure Points Assessed Yes Evidence of Incision/Wounds/Breakdown Yes: see wound record Mucous membranes moist, pink and intact Yes Oral Cavity Missing Teeth Musculoskeletal Assessment Musculoskeletal Symptoms Generalized Weakness Document 04/23/16 15:45 [facility] (Rec: 04/23/16 15:51 [facility] [id number]) Neurological Assessment Eye Opening Spontaneous Motor Obeys Commands Verbal Confused Coma Scale Total 14 Neurologic Status Agitation/Confusion Patient Orientation Person Place Arousable To Name Speech Pattern Coherent Inappropriate to situation Patient Behavior Restless Belligerent Impulsive Mood Description Calm Relaxed Left Pupil Reaction Reactive Pupil Size (mm) 2 Pupil [place] Equal Right Pupil Reaction Unreactive Pupil Size (mm) 2 Pupil [place] Equal Sensory Vision impaired All Four Limbs Strength Mild Weakness Road Gang Supervisor Strength Equal Push/Pull Equal Numbness/Tingling No Facial Symmetry Symmetrical Cardiovascular Assessment Signs and Symptoms None Heart Sounds S1 & S2 Pulse Rate 71 Rhythm Regular Pulse Assessment Method Auscultation Right Radial 2+ Left Radial 2+ Right Dorsalis Pedis Doppler Left Dorsalis Pedis Doppler Right Posterior Tibialis Doppler Left Posterior Tibialis Unable to Assess Jugular Vein Distention None Capillary Refill < 3 Seconds Circulatory Tenderness Description Left Arm None Chest Pain Complaint No Mechanical Prophylaxis No Reason Mechanical Device Not Applied Contraindicated Cardiac Monitoring Monitor Number [id number] Strip placed in Chart Yes History Reviewed Yes Memory Cleared Yes Alarms/Limits HR Alarm 120/50 SBP Alarm 160/90 SPO2 Alarm 100/90 Heart Rate 72 EKG Method Telemetry Rhythm Sinus Rhythm First Degree Block RI Interval 0.25 QRS Interval 0.12 QT Interval 0.44 Respiratory Assessment Respiratory Symptoms None Effort Normal for Patient Spontaneous Non-Labored Depth Normal Respiratory Pattern Regular Chest Shape Normal Expansion Symmetrical All Lung [place] Expiratory Rhonchi Oxygen Delivery Method Nasal Cannula Oxygen Flow Rate (LPM) 1.5 FIO2 (%) (%) 21 Cough Description None Cough Frequency Intermittent Sputum Amount None Gastrointestinal Assessment Abdomen Description Soft Non-Tender 3 or more loose stools, in less than 24 No hours Nausea/Vomiting Presence None All Four Quadrants Active Flatus Presence Present Genitourinary Assessment Genitourinary Symptoms None Bladder Pattern Normal Incontinence Total Voiding Method Indwelling Catheter Urine Appearance Sediment Color Dark Yellow Odor Normal Bladder Distention None Suprapubic Tenderness with Palpation No Integumentary Assessment Fingernail Condition [place] Fungal Infection Fingernail Color Yellow Nail Bed Appearance [place] Temperature Warm Moisture Dry [place] Loose Color Normal All Pressure Points Assessed Yes Evidence of Incision/Wounds/Breakdown Yes: see wound record Mucous membranes moist, pink and intact Yes Oral Cavity Missing Teeth Musculoskeletal Assessment Musculoskeletal Symptoms Generalized Weakness Document 04/23/16 19:48 JCL (Rec: 04/23/16 21:11 JCL [id number]) Pain Assessment Pain Present Reports No Pain Neurological Assessment Eye Opening Spontaneous Motor Obeys Commands Verbal Confused Coma Scale Total 14 Neurologic Status Agitation/Confusion Patient Orientation Person Time Arousable To Name Speech Pattern Normal rate Clear Inappropriate to situation Patient Behavior Cooperative Impulsive Mood Description Calm Relaxed Left Pupil Reaction Reactive Pupil Size (mm) 2 Pupil [place] Equal Right Pupil Reaction Unreactive Pupil Size (mm) 2 Pupil [place] Equal Sensory Vision impaired All Four Limbs Strength Mild Weakness Road Gang Supervisor Strength Equal Push/Pull Equal Numbness/Tingling No Facial Symmetry Symmetrical Neurological Comment: Patient's tongue midline without deviation. 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 Cardiovascular Assessment Signs and Symptoms None Heart Sounds S1 & S2 Rhythm Regular Right Radial 2+ Left Radial 2+ Right Dorsalis Pedis Doppler Left Dorsalis Pedis Doppler Right Posterior Tibialis Unable to Assess Left Posterior Tibialis Unable to Assess Jugular Vein Distention None Capillary Refill < 3 Seconds Circulatory Tenderness Description Left Arm None Chest Pain Complaint No Mechanical Prophylaxis No Reason Mechanical Device Not Applied Contraindicated Cardiac Monitoring Monitor Number [id number] Strip placed in Chart Yes History Reviewed Yes Memory Cleared Yes Alarms/Limits HR Alarm 120/50 SBP Alarm 160/90 SPO2 Alarm 100/90 Heart Rate 79 EKG Method Telemetry Rhythm Sinus Rhythm First Degree Block Bundle Branch Block RI Interval 0.25 QRS Interval 0.13 QT Interval 0.41 Respiratory Assessment Respiratory Symptoms None Effort Normal for Patient Spontaneous Non-Labored Depth Normal Respiratory Pattern Regular Chest Shape Normal Expansion Symmetrical Right Upper Lobe Expiratory Rhonchi Right Middle Lobe Expiratory Rhonchi Right Lower Lobe Expiratory Rhonchi Left Upper Lobe Clear Left Lower Lobe Clear Right Upper Lobe Clear Diminished Right Middle Lobe Clear Diminished Right Lower Lobe Inspiratory Rhonchi Expiratory Rhonchi Left Upper Lobe Inspiratory Rhonchi Expiratory Rhonchi Left Lower Lobe Inspiratory Rhonchi Expiratory Rhonchi Oxygen Delivery Method Nasal Cannula Oxygen Flow Rate (LPM) 1.5 FIO2 (%) (%) 21 Cough Description Voluntary Non-Productive Dry Cough Frequency Intermittent Sputum Amount None Comment: . Gastrointestinal Assessment Abdomen Description Soft Non-Tender Large 3 or more loose stools, in less than 24 No hours Nausea/Vomiting Presence None GI Comment: . All Four Quadrants Active Flatus Presence Present Genitourinary Assessment Genitourinary Symptoms None Bladder Pattern Normal Voiding Method Indwelling Catheter Urine Appearance Clear Color Straw Odor Normal Bladder Distention None Suprapubic Tenderness with Palpation No Comment: . Integumentary Assessment Fingernail Color Yellow Nail Bed Appearance [place] Temperature Warm Moisture Dry [place] Loose Color Normal All Pressure Points Assessed Yes Evidence of Incision/Wounds/Breakdown Yes: see wound record Mucous membranes moist, pink and intact Yes Oral Cavity Missing Teeth Integumentary Comment: . Musculoskeletal Assessment Musculoskeletal Symptoms Generalized Weakness Document 04/23/16 23:54 JCL (Rec: 04/24/16 00:49 JCL [id number]) Pain Assessment Pain Present Reports No Pain Neurological Assessment Eye Opening Spontaneous Motor Obeys Commands Verbal Confused Coma Scale Total 14 Cardiovascular Assessment Signs and Symptoms Irregular Heart Rhythm Arrhythmia on Telemetry Heart Sounds S1 & S2 Rhythm Regular Chest Pain Complaint No Mechanical Prophylaxis No Reason Mechanical Device Not Applied Contraindicated Cardiac Monitoring Monitor Number [id number] Strip placed in Chart Yes History Reviewed Yes Memory Cleared Yes Alarms/Limits HR Alarm 120/50 SBP Alarm 160/90 SPO2 Alarm 100/90 Heart Rate 68 EKG Method Telemetry Rhythm Sinus Rhythm First Degree Block Bundle Branch Block RI Interval 0.29 QRS Interval 0.13 QT Interval 0.44 Respiratory Assessment Respiratory Symptoms None Effort Normal for Patient Spontaneous Non-Labored Depth Normal Respiratory Pattern Regular Chest Shape Normal Expansion Symmetrical Right Upper Lobe Inspiratory Rhonchi Expiratory Rhonchi Right Middle Lobe Inspiratory Rhonchi Expiratory Rhonchi Right Lower Lobe Inspiratory Rhonchi Expiratory Rhonchi Left Upper Lobe Inspiratory Rhonchi Expiratory Rhonchi Left Lower Lobe Inspiratory Rhonchi Expiratory Rhonchi Right Upper Lobe Inspiratory Rhonchi Expiratory Rhonchi Right Middle Lobe Inspiratory Rhonchi Expiratory Rhonchi Right Lower Lobe Inspiratory Rhonchi Expiratory Rhonchi Left Upper Lobe Inspiratory Rhonchi Expiratory Rhonchi Left Lower Lobe Inspiratory Rhonchi Expiratory Rhonchi Oxygen Delivery Method Nasal Cannula Oxygen Flow Rate (LPM) 1.5 FIO2 (%) (%) 21 Cough Description Voluntary Non-Productive Dry Cough Frequency Intermittent Sputum Amount None Comment: . Document 04/24/16 03:37 JCL (Rec: 04/24/16 04:57 JCL [id number]) Pain Assessment Pain Present Reports No Pain Neurological Assessment Eye Opening Spontaneous Motor Obeys Commands Verbal Confused Coma Scale Total 14 Cardiovascular Assessment Signs and Symptoms Irregular Heart Rhythm Arrhythmia on Telemetry Heart Sounds S1 & S2 Rhythm Regular Chest Pain Complaint No Mechanical Prophylaxis No Reason Mechanical Device Not Applied Contraindicated Cardiac Monitoring Monitor Number [id number] Strip placed in Chart Yes History Reviewed Yes Memory Cleared Yes Alarms/Limits HR Alarm 120/50 SBP Alarm 160/90 SPO2 Alarm 100/90 Heart Rate 64 EKG Method Telemetry Rhythm Sinus Rhythm First Degree Block Bundle Branch Block RI Interval 0.28 QRS Interval 0.14 QT Interval 0.43 Respiratory Assessment Respiratory Symptoms None Effort Normal for Patient Spontaneous Non-Labored Depth Normal Respiratory Pattern Regular Chest Shape Normal Expansion Symmetrical Right Upper Lobe Clear Right Middle Lobe Clear Right Lower Lobe Clear Left Upper Lobe Clear Left Lower Lobe Clear Right Upper Lobe Clear Diminished Right Middle Lobe Clear Diminished Right Lower Lobe Clear Diminished Left Upper Lobe Clear Diminished Left Lower Lobe Clear Diminished Oxygen Delivery Method Nasal Cannula Oxygen Flow Rate (LPM) 1.5 FIO2 (%) (%) 21 Cough Description None Sputum Amount None Comment: . Document 04/24/16 10:44 [id number] (Rec: 04/24/16 10:49 [id number]) Pain Assessment Pain Present Reports Pain Left Knee Pain Intensity 10 Description Ache Scale Used Numeric (1 - 10) Pain Intervention Position Comment waiting on pain medication Neurological Assessment Eye Opening Spontaneous Motor Obeys Commands Verbal Oriented Coma Scale Total 15 Neurologic Status Alert Patient Orientation Person Arousable To Name Speech Pattern Normal rate Normal rhythm Normal tone Appropriate Clear Coherent Patient Behavior Appropriate Cooperative Mood Description Anxious Left Pupil Reaction Reactive Pupil Size (mm) 2 Pupil [place] Equal Scleral Edema No Right Pupil Reaction Unreactive Pupil Size (mm) 2 Pupil [place] Equal Sensory Vision impaired All Four Limbs Strength Mild Weakness Road Gang Supervisor Strength Equal Push/Pull Equal Numbness/Tingling No Facial Symmetry Symmetrical Blink Present Cough/Gag Normal Neurological Comment: Patient's tongue midline without deviation. 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 Cardiovascular Assessment Signs and Symptoms Irregular Heart Rhythm Arrhythmia on Telemetry Heart Sounds S1 & S2 Pulse Rate 62 Right Radial 2+ Left Radial 2+ Right Dorsalis Pedis Doppler Left Dorsalis Pedis Amputated Right Posterior Tibialis Unable to Assess Left Posterior Tibialis Amputated Jugular Vein Distention None Capillary Refill < 3 Seconds Circulatory Tenderness Description Left Arm None Chest Pain Complaint No Mechanical Prophylaxis No Reason Mechanical Device Not Applied Contraindicated Cardiac Monitoring Monitor Number [id number] Strip placed in Chart Yes History Reviewed Yes Memory Cleared Yes Alarms/Limits HR Alarm 120/50 SBP Alarm 160/90 SPO2 Alarm 100/90 EKG Method Telemetry Respiratory Assessment Respiratory Symptoms None Effort Normal for Patient Spontaneous Non-Labored Depth Normal Respiratory Pattern Regular Chest Shape Normal Expansion Symmetrical All Lung [place] Diminished Oxygen Delivery Method Nasal Cannula Oxygen Flow Rate (LPM) 2 Cough Description Involuntary Moist Cough Frequency Intermittent Sputum Amount None Comment: . Gastrointestinal Assessment Abdomen Description Soft Non-Tender Large 3 or more loose stools, in less than 24 No hours Nausea/Vomiting Presence None GI Comment: . All Four Quadrants Active Flatus Presence Present Genitourinary Assessment Genitourinary Symptoms None Bladder Pattern Normal Incontinence Total Voiding Method Indwelling Catheter Urine Appearance Clear Color Dark Yellow Odor Normal Bladder Distention None Suprapubic Tenderness with Palpation No Comment: . Integumentary Assessment Fingernail Condition [place] Fungal Infection Fingernail Color Yellow Nail Bed Appearance [place] Temperature Warm Moisture Dry Turgor Loose Color Normal All Pressure Points Assessed Yes Evidence of Incision/Wounds/Breakdown Yes: see wound record Mucous membranes moist, pink and intact Yes Oral Cavity Missing Teeth Integumentary Comment: . Musculoskeletal Assessment Musculoskeletal Symptoms Generalized Weakness Musculoskeletal Comment: uses scooter at home no home O2 passport HH Document 04/24/16 15:28 [place] [facility] (Rec: 04/24/16 15:35 [facility] [id number]) Pain Assessment Pain Present Reports Pain Posterior Pain Intensity 9 Description Ache Scale Used Numeric (1 - 10) Pain Intervention Medication Neurological Assessment Eye Opening Spontaneous Motor Obeys Commands Verbal Confused Coma Scale Total 14 Neurologic Status Alert Patient Orientation Person Arousable To Name Speech Pattern Appropriate Clear Coherent Patient Behavior Appropriate Cooperative Mood Description Calm Relaxed Left Pupil Reaction Reactive Pupil Size (mm) 2 Pupil [place] Equal Scleral Edema No Right Pupil Reaction Unreactive Pupil Size (mm) 2 Pupil [place] Equal Sensory Vision impaired All Four Limbs Strength Mild Weakness Road Gang Supervisor Strength Equal Push/Pull Equal Numbness/Tingling No Facial Symmetry Symmetrical Blink Present Cough/Gag Normal Neurological Comment: Patient's tongue midline without deviation. 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 Cardiovascular Assessment Signs and Symptoms Irregular Heart Rhythm Arrhythmia on Telemetry Heart Sounds S1 & S2 Pulse Rate 68 Rhythm Regular Right Radial 2+ Left Radial 2+ Right Dorsalis Pedis Doppler Left Dorsalis Pedis Amputated Right Posterior Tibialis Doppler Left Posterior Tibialis Amputated Jugular Vein Distention None Capillary Refill < 3 Seconds Circulatory Tenderness Description None Chest Pain Complaint No Mechanical Prophylaxis No Reason Mechanical Device Not Applied Contraindicated Cardiac Monitoring Monitor Number [id number] Strip placed in Chart Yes History Reviewed Yes Memory Cleared Yes Alarms/Limits HR Alarm 120/50 SBP Alarm 160/90 SPO2 Alarm 100/90 Heart Rate 68 EKG Method Telemetry Rhythm Sinus Rhythm RI Interval 0.18 QRS Interval 0.11 QT Interval 0.37 Respiratory Assessment Respiratory Symptoms None Effort Normal for Patient Spontaneous Non-Labored Depth Normal Respiratory Pattern Regular Chest Shape Normal Expansion Symmetrical Right Upper Lobe Clear Right Middle Lobe Clear Right Lower Lobe Clear Left Upper Lobe Clear Left Lower Lobe Clear Right Upper Lobe Clear Diminished Right Middle Lobe Clear Diminished Right Lower Lobe Clear Diminished Left Upper Lobe Clear Diminished Left Lower Lobe Clear Diminished Oxygen Delivery Method Nasal Cannula Oxygen Flow Rate (LPM) 4 FIO2 (%) (%) 21 Cough Description Involuntary Moist Cough Frequency Intermittent Sputum Amount None Comment: . Gastrointestinal Assessment Abdomen Description Soft Non-Tender Large 3 or more loose stools, in less than 24 No hours Nausea/Vomiting Presence None GI Comment: . All Four Quadrants Active Flatus Presence Present Genitourinary Assessment Genitourinary Symptoms None Bladder Pattern Normal Incontinence Total Voiding Method Indwelling Catheter Urine Appearance Clear Color Dark Yellow Odor Normal Bladder Distention None Suprapubic Tenderness with Palpation No Comment: . Integumentary Assessment Fingernail Condition [place] Fungal Infection Fingernail Color Yellow Nail Bed Appearance [place] Temperature Warm Moisture Dry Turgor Loose Color Normal All Pressure Points Assessed Yes Evidence of Incision/Wounds/Breakdown Yes: see wound record Mucous membranes moist, pink and intact Yes Oral Cavity Missing Teeth Integumentary Comment: . Musculoskeletal Assessment Musculoskeletal Symptoms Generalized Weakness Musculoskeletal Comment: uses scooter at home no home O2 passport Document 04/24/16 19:36 [facility] (Rec: 04/24/16 21:43 [facility] [id number]) Pain Assessment Pain Present Reports Pain Left Knee Pain Intensity 6 Description Ache Scale Used Numeric (1 - 10) Pain Intervention Medication Comment Patient refused to be repotioned. Neurological Assessment Eye Opening Spontaneous Motor Obeys Commands Verbal Oriented Coma Scale Total 15 Neurologic Status Alert Patient Orientation Person Place Time Arousable To Name Speech Pattern Appropriate Clear Coherent Patient Behavior Appropriate Cooperative Mood Description Calm Relaxed Left Pupil Reaction Reactive Pupil Size (mm) 2 Pupil [place] Equal Scleral Edema No Right Pupil Reaction Unreactive Pupil Size (mm) 2 Pupil [place] Equal Sensory Vision impaired All Four Limbs Strength Mild Weakness Road Gang Supervisor Strength Equal Push/Pull Left Amputee Numbness/Tingling No Facial Symmetry Symmetrical Neurological Comment: Patient's tongue midline without deviation. 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 Cardiovascular Assessment Signs and Symptoms Irregular Heart Rhythm Arrhythmia on Telemetry Heart Sounds S1 & S2 Rhythm Regular Right Radial 2+ Left Radial 2+ Right Dorsalis Pedis Doppler Left Dorsalis Pedis Amputated Right Posterior Tibialis Doppler Left Posterior Tibialis Amputated Jugular Vein Distention None Capillary Refill < 3 Seconds Circulatory Tenderness Description None Chest Pain Complaint No Mechanical Prophylaxis No Reason Mechanical Device Not Applied Contraindicated Cardiac Monitoring Monitor Number [id number] Strip placed in Chart Yes History Reviewed Yes Memory Cleared Yes Alarms/Limits HR Alarm 120/50 SBP Alarm 160/90 SPO2 Alarm 100/90 Heart Rate 71 EKG Method Telemetry Rhythm Sinus Rhythm First Degree Block RI Interval 0.27 QRS Interval 0.11 QT Interval 0.43 Respiratory Assessment Respiratory Symptoms None Effort Normal for Patient Spontaneous Non-Labored Depth Normal Respiratory Pattern Regular Chest Shape Normal Expansion Symmetrical Right Upper Lobe Inspiratory Rhonchi Expiratory Rhonchi Right Middle Lobe Inspiratory Rhonchi Expiratory Rhonchi Right Lower Lobe Clear Left Upper Lobe Clear Left Lower Lobe Clear Right Upper Lobe Expiratory Rhonchi Right Middle Lobe Expiratory Rhonchi Right Lower Lobe Expiratory Rhonchi Left Upper Lobe Expiratory Rhonchi Left Lower Lobe Clear Oxygen Delivery Method Nasal Cannula Oxygen Flow Rate (LPM) 4 FIO2 (%) (%) 21 Cough Description Involuntary Moist Cough Frequency Intermittent Sputum Amount None Comment: . Gastrointestinal Assessment Abdomen Description Soft Non-Tender Large 3 or more loose stools, in less than 24 No hours Nausea/Vomiting Presence None GI Comment: . All Four Quadrants Active Genitourinary Assessment Genitourinary Symptoms None Bladder Pattern Normal Incontinence Total Voiding Method Indwelling Catheter Urine Appearance Clear Color Dark Yellow Odor Normal Bladder Distention None Suprapubic Tenderness with Palpation No Comment: . Integumentary Assessment Fingernail Color Yellow Nail Bed Appearance [place] Temperature Warm Moisture Dry Turgor Loose Color Normal All Pressure Points Assessed Yes Evidence of Incision/Wounds/Breakdown Yes: see wound record Mucous membranes moist, pink and intact Yes Oral Cavity Missing Teeth Integumentary Comment: . Musculoskeletal Assessment Musculoskeletal Symptoms Generalized Weakness Left Leg Amputee Musculoskeletal Comment: . Document 04/24/16 23:57 J[facility] (Rec: 04/25/16 01:00 [facility] [id number]) Pain Assessment Pain Present Reports Pain Left Knee Pain Intensity 10 Description Ache Sharp Throbbing Scale Used Numeric (1 - 10) Pain Intervention Medication Position Comment Patient adjusted in bed and given IV pain medication per request as ordered Neurological Assessment Eye Opening Spontaneous Motor Obeys Commands Verbal Confused Coma Scale Total 14 Neurologic Status Alert Patient Orientation Person Place Arousable To Name Speech Pattern Appropriate Clear Coherent Patient Behavior Appropriate Cooperative Mood Description Calm Relaxed Cardiovascular Assessment Signs and Symptoms Irregular Heart Rhythm Arrhythmia on Telemetry Heart Sounds S1 & S2 Rhythm Regular Right Radial 2+ Left Radial 2+ Right Dorsalis Pedis Doppler Left Dorsalis Pedis Amputated Right Posterior Tibialis Doppler Left Posterior Tibialis Amputated Chest Pain Complaint No Mechanical Prophylaxis No Reason Mechanical Device Not Applied Contraindicated Cardiac Monitoring Monitor Number [id number] Strip placed in Chart Yes History Reviewed Yes Memory Cleared Yes Alarms/Limits HR Alarm 120/50 SBP Alarm 160/90 SPO2 Alarm 100/90 Heart Rate 67 EKG Method Telemetry Rhythm Sinus Rhythm First Degree Block RI Interval 0.27 QRS Interval 0.12 QT Interval 0.34 Respiratory Assessment Respiratory Symptoms None Effort Normal for Patient Spontaneous Non-Labored Depth Normal Respiratory Pattern Regular Chest Shape Normal Expansion Symmetrical Right Upper Lobe Inspiratory Rhonchi Expiratory Rhonchi Right Middle Lobe Inspiratory Rhonchi Expiratory Rhonchi Right Lower Lobe Clear Left Upper Lobe Clear Left Lower Lobe Clear Right Upper Lobe Expiratory Rhonchi Right Middle Lobe Expiratory Rhonchi Right Lower Lobe Expiratory Rhonchi Left Upper Lobe Expiratory Rhonchi Left Lower Lobe Clear Oxygen Delivery Method Nasal Cannula Oxygen Flow Rate (LPM) 2 Cough Description None Sputum Amount None Comment: . Document 04/25/16 03:57 JCL (Rec: 04/25/16 05:42 [facility] [id number]) Pain Assessment Pain Present Reports No Pain Neurological Assessment Eye Opening Spontaneous Motor Obeys Commands Verbal Confused Coma Scale Total 14 Cardiovascular Assessment Signs and Symptoms Irregular Heart Rhythm Arrhythmia on Telemetry Heart Sounds S1 & S2 Rhythm Regular Right Radial 2+ Left Radial 2+ Right Dorsalis Pedis Doppler Left Dorsalis Pedis Amputated Right Posterior Tibialis Doppler Left Posterior Tibialis Amputated Chest Pain Complaint No Mechanical Prophylaxis No Reason Mechanical Device Not Applied Contraindicated Cardiac Monitoring Monitor Number [id number] Strip placed in Chart Yes History Reviewed Yes Memory Cleared Yes Alarms/Limits HR Alarm 120/50 SBP Alarm 160/90 SPO2 Alarm 100/90 Heart Rate 67 Rhythm Sinus Rhythm First Degree Block RI Interval 0.26 QRS Interval 0.11 QT Interval 0.46 Respiratory Assessment Respiratory Symptoms None Effort Normal for Patient Spontaneous Non-Labored Depth Normal Respiratory Pattern Regular Chest Shape Normal Expansion Symmetrical All Lung [place] Diminished Right Upper Lobe Expiratory Rhonchi Right Middle Lobe Expiratory Rhonchi Right Lower Lobe Expiratory Rhonchi Left Upper Lobe Clear Left Lower Lobe Clear Right Upper Lobe Expiratory Rhonchi Right Middle Lobe Expiratory Rhonchi Right Lower Lobe Expiratory Rhonchi Left Upper Lobe Clear Left Lower Lobe Clear Oxygen Delivery Method Nasal Cannula Oxygen Flow Rate (LPM) 1 FIO2 (%) (%) 21 Cough Description None Cough Frequency Intermittent Sputum Amount None Comment: . Document 04/25/16 10:35 [facility] (Rec: 04/25/16 11:59 [facility] [id number]) Pain Assessment Pain Present Reports Pain Left Knee Description Ache Pain Intervention Medication Comment Patient verbalizing pain in left leg but unable to rate pain level Neurological Assessment Eye Opening Spontaneous Motor Obeys Commands Verbal Confused Coma Scale Total 14 Neurologic Status Agitation/Confusion Patient Orientation Person Arousable To Name Speech Pattern Normal rate Normal rhythm Normal tone Clear Coherent Patient Behavior Confused Mood Description Apprehensive Right Strength Mild Weakness Road Gang Supervisor Strength Equal Push/Pull Equal Numbness/Tingling No Facial Symmetry Symmetrical Cardiovascular Assessment Signs and Symptoms Irregular Heart Rhythm Arrhythmia on Telemetry Heart Sounds S1 & S2 Right Radial 2+ Left Radial 2+ Right Dorsalis Pedis Doppler Left Dorsalis Pedis Amputated Right Posterior Tibialis Doppler Left Posterior Tibialis Amputated Jugular Vein Distention None Capillary Refill < 3 Seconds Circulatory Tenderness Description None Mechanical Prophylaxis No Reason Mechanical Device Not Applied Contraindicated Cardiac Monitoring Monitor Number [id number] Strip placed in Chart Yes History Reviewed Yes Memory Cleared No Alarms/Limits HR Alarm 120/50 SBP Alarm 160/90 SPO2 Alarm 100/90 Heart Rate 79 Rhythm Sinus Rhythm First Degree Block T-Wave Depression RI Interval 0.3 QRS Interval 0.09 QT Interval 0.42 Respiratory Assessment Respiratory Symptoms None Effort Normal for Patient Spontaneous Non-Labored Depth Normal Respiratory Pattern Regular Chest Shape Normal Expansion Symmetrical All Lung [place] Clear Oxygen Delivery Method Nasal Cannula Oxygen Flow Rate (LPM) 1 Cough Description None Sputum Amount None Gastrointestinal Assessment Abdomen Description Flat Soft Non-Tender 3 or more loose stools, in less than 24 No hours Nausea/Vomiting Presence None All Four Quadrants Active Genitourinary Assessment Genitourinary Symptoms None Bladder Pattern Normal Incontinence Total Voiding Method Indwelling Catheter Urine Appearance Clear Color Bright Yellow Bladder Distention None Suprapubic Tenderness with Palpation No Integumentary Assessment Fingernail Condition Fungal Infection Fingernail Color Yellow Nail Bed Appearance [place] Temperature Warm Moisture Dry Turgor Loose Color Normal All Pressure Points Assessed Yes Evidence of Incision/Wounds/Breakdown Yes: see wound record Mucous membranes moist, pink and intact Yes Oral Cavity Missing Teeth Musculoskeletal Assessment Musculoskeletal Symptoms Generalized Weakness Left Leg Amputee Document 04/25/16 12:15 JOYCE (Rec: 04/25/16 13:39 JOYCE [id number]) Neurological Assessment Eye Opening Spontaneous Motor Obeys Commands Verbal Confused Coma Scale Total 14 Neurologic Status Agitation/Confusion Patient Orientation Person Arousable To Name Speech Pattern Normal rate Normal rhythm Normal tone Clear Coherent Patient Behavior Cooperative Confused Mood Description Calm Relaxed Right Strength Mild Weakness Road Gang Supervisor Strength Equal Push/Pull Left Amputee Numbness/Tingling No Facial Symmetry Symmetrical Cardiovascular Assessment Signs and Symptoms Irregular Heart Rhythm Arrhythmia on Telemetry Heart Sounds S1 & S2 Right Radial 2+ Left Radial 2+ Right Dorsalis Pedis Doppler Left Dorsalis Pedis Amputated Right Posterior Tibialis Doppler Left Posterior Tibialis Amputated Jugular Vein Distention None Capillary Refill < 3 Seconds Circulatory Tenderness Description None Mechanical Prophylaxis No Reason Mechanical Device Not Applied Contraindicated Cardiac Monitoring Monitor Number [id number] Strip placed in Chart Yes History Reviewed No Memory Cleared No Alarms/Limits HR Alarm 120/50 SBP Alarm 160/90 SPO2 Alarm 100/90 Heart Rate 66 Rhythm Sinus Rhythm First Degree Block T-Wave Depression RI Interval 0.3 QRS Interval 0.09 QT Interval 0.31 Respiratory Assessment Respiratory Symptoms None Effort Normal for Patient Spontaneous Non-Labored Depth Normal Respiratory Pattern Regular Chest Shape Normal Expansion Symmetrical All Lung [place] Clear Oxygen Delivery Method Nasal Cannula Oxygen Flow Rate (LPM) 1 FIO2 (%) (%) 21 Cough Description None Sputum Amount None Gastrointestinal Assessment Abdomen Description Flat Soft Non-Tender 3 or more loose stools, in less than 24 No hours Nausea/Vomiting Presence None All Four Quadrants Active Genitourinary Assessment Genitourinary Symptoms None Bladder Pattern Normal Incontinence Total Voiding Method Indwelling Catheter Urine Appearance Clear Color Bright Yellow Bladder Distention None Suprapubic Tenderness with Palpation No Integumentary Assessment Fingernail Condition Fungal Infection Fingernail Color Yellow Nail Bed Appearance [place] Temperature Warm Moisture Dry Turgor Loose Color Normal All Pressure Points Assessed Yes Evidence of Incision/Wounds/Breakdown Yes: see wound record Mucous membranes moist, pink and intact Yes Oral Cavity Missing Teeth Musculoskeletal Assessment Musculoskeletal Symptoms Generalized Weakness Left Leg Amputee Document 04/25/16 16:35 JOYCE (Rec: 04/25/16 18:16 JOYCE [id number]) Neurological Assessment Eye Opening Spontaneous Motor Obeys Commands Verbal Confused Coma Scale Total 14 Neurologic Status Agitation/Confusion Patient Orientation Person Arousable To Name Speech Pattern Normal rate Normal rhythm Normal tone Clear Coherent Patient Behavior Crying Belligerent Confused Agitated Mood Description Hostile Left Pupil Reaction Reactive Pupil Size (mm) 2 Pupil [place] Equal Scleral Edema No Right Pupil Size (mm) 2 Pupil [place] Equal Sensory Vision impaired Right Strength Mild Weakness All Four Limbs Strength Mild Weakness Numbness/Tingling No Facial Symmetry Symmetrical Cardiovascular Assessment Signs and Symptoms Irregular Heart Rhythm Arrhythmia on Telemetry Heart Sounds S1 & S2 Right Radial 2+ Left Radial 2+ Right Dorsalis Pedis Doppler Left Dorsalis Pedis Amputated Right Posterior Tibialis Doppler Left Posterior Tibialis Amputated Jugular Vein Distention None Capillary Refill < 3 Seconds Circulatory Tenderness Description None Mechanical Prophylaxis No Reason Mechanical Device Not Applied Contraindicated Cardiac Monitoring Monitor Number [id number] Strip placed in Chart Yes History Reviewed No Memory Cleared No Alarms/Limits HR Alarm 120/50 SBP Alarm 160/90 SPO2 Alarm 100/90 Heart Rate 65 Rhythm Sinus Rhythm First Degree Block T-Wave Depression RI Interval 0.27 QRS Interval 0.12 QT Interval 0.38 Respiratory Assessment Respiratory Symptoms None Effort Normal for Patient Spontaneous Non-Labored Depth Normal Respiratory Pattern Regular Chest Shape Normal Expansion Symmetrical All Lung [place] Clear Oxygen Delivery Method Nasal Cannula Oxygen Flow Rate (LPM) 1 FIO2 (%) (%) 21 Cough Description None Sputum Amount None Gastrointestinal Assessment Abdomen Description Flat Soft Non-Tender 3 or more loose stools, in less than 24 No hours Nausea/Vomiting Presence None All Four Quadrants Active Genitourinary Assessment Genitourinary Symptoms None Incontinence Total Voiding Method Indwelling Catheter Urine Appearance Clear Color Bright Yellow Bladder Distention None Suprapubic Tenderness with Palpation No Integumentary Assessment Temperature Warm Moisture Dry Turgor Loose Color Normal All Pressure Points Assessed Yes Evidence of Incision/Wounds/Breakdown Yes: see wound record Musculoskeletal Assessment Musculoskeletal Symptoms Generalized Weakness Left Leg Amputee Document 04/25/16 19:44 J[facility] (Rec: 04/25/16 21:21 JCL [id number]) Neurological Assessment Eye Opening Spontaneous Motor Obeys Commands Verbal Confused Coma Scale Total 14 Neurologic Status Agitation/Confusion Patient Orientation Person Time Arousable To Name Speech Pattern Normal tone Clear Patient Behavior Cooperative Anxious Crying Confused Mood Description Anxious Left Pupil Reaction Reactive Pupil Size (mm) 2 Pupil [place] Equal Scleral Edema No Right Pupil Reaction Unreactive Pupil Size (mm) 2 Pupil [place] Equal Sensory Vision impaired Road Gang Supervisor Strength Equal Push/Pull Left Amputee Numbness/Tingling No Facial Symmetry Symmetrical Neurological Comment: Patient's tongue midline without deviation. Cardiovascular Assessment Signs and Symptoms Irregular Heart Rhythm Arrhythmia on Telemetry Heart Sounds S1 & S2 Rhythm Regular Right Radial 2+ Left Radial 2+ Right Dorsalis Pedis Doppler Left Dorsalis Pedis Amputated Right Posterior Tibialis Doppler Left Posterior Tibialis Amputated Jugular Vein Distention None Capillary Refill < 3 Seconds Circulatory Tenderness Description None Chest Pain Complaint No Mechanical Prophylaxis No Reason Mechanical Device Not Applied Contraindicated Cardiac Monitoring Monitor Number [id number] Strip placed in Chart Yes History Reviewed Yes Memory Cleared Yes Alarms/Limits HR Alarm 120/50 SBP Alarm 160/90 SPO2 Alarm 100/90 Heart Rate 69 EKG Method Telemetry Rhythm Sinus Rhythm First Degree Block T-Wave Depression RI Interval 0.26 QRS Interval 0.12 QT Interval 0.45 Respiratory Assessment Respiratory Symptoms None Effort Normal for Patient Spontaneous Non-Labored Depth Normal Respiratory Pattern Regular Chest Shape Normal Expansion Symmetrical All Lung [place] Clear Right Upper Lobe Clear Right Middle Lobe Clear Right Lower Lobe Clear Left Upper Lobe Clear Left Lower Lobe Clear Right Upper Lobe Clear Right Middle Lobe Clear Right Lower Lobe Clear Diminished Left Upper Lobe Clear Left Lower Lobe Clear Diminished Oxygen Delivery Method Nasal Cannula Oxygen Flow Rate (LPM) 1 FIO2 (%) (%) 21 Cough Description None Cough Frequency Intermittent Sputum Amount None Comment: . Gastrointestinal Assessment Abdomen Description Soft Non-Tender Large 3 or more loose stools, in less than 24 No hours Nausea/Vomiting Presence None GI Comment: . All Four Quadrants Active Flatus Presence Present Genitourinary Assessment Genitourinary Symptoms None Bladder Pattern Normal Voiding Method Indwelling Catheter Urine Appearance Clear Color Dark Yellow Odor Normal Bladder Distention None Suprapubic Tenderness with Palpation No Comment: . Integumentary Assessment Fingernail Color Yellow Nail Bed Appearance [place] Temperature Warm Moisture Dry Turgor Loose Color Normal All Pressure Points Assessed Yes Evidence of Incision/Wounds/Breakdown Yes: see wound record Mucous membranes moist, pink and intact Yes Oral Cavity Missing Teeth Integumentary Comment: . Musculoskeletal Assessment Musculoskeletal Symptoms Generalized Weakness Left Leg Amputee Musculoskeletal Comment: . Document 04/25/16 23:45 JCL (Rec: 03/21/17 00:28 [facility] [id number]) Neurological Assessment Eye Opening Spontaneous Motor Obeys Commands Verbal Confused Coma Scale Total 14 Neurologic Status Agitation/Confusion Patient Orientation Person Arousable To Name Cardiovascular Assessment Signs and Symptoms Irregular Heart Rhythm Arrhythmia on Telemetry Heart Sounds S1 & S2 Rhythm Regular Chest Pain Complaint No Mechanical Prophylaxis No Reason Mechanical Device Not Applied Contraindicated Cardiac Monitoring Monitor Number [id number] Strip placed in Chart Yes History Reviewed Yes Memory Cleared Yes Alarms/Limits HR Alarm 120/50 SBP Alarm 160/90 SPO2 Alarm 100/90 Heart Rate 68 EKG Method Telemetry Rhythm Sinus Rhythm First Degree Block Bundle Branch Block RI Interval 0.27 QRS Interval 0.15 QT Interval 0.31 Respiratory Assessment Respiratory Symptoms None Effort Normal for Patient Spontaneous Non-Labored Depth Normal Respiratory Pattern Regular Chest Shape Normal Expansion Symmetrical All Lung [place] Clear Right Upper Lobe Clear Right Middle Lobe Clear Right Lower Lobe Clear Left Upper Lobe Clear Left Lower Lobe Clear Right Upper Lobe Clear Right Middle Lobe Clear Right Lower Lobe Clear Diminished Left Upper Lobe Clear Left Lower Lobe Clear Diminished Oxygen Delivery Method Nasal Cannula Oxygen Flow Rate (LPM) 1.5 FIO2 (%) (%) 21 Cough Description None Cough Frequency Intermittent Sputum Amount None Comment: . Document 04/26/16 03:47 [facility] (Rec: 04/26/16 05:02 [facility] [id number]) Neurological Assessment Eye Opening Spontaneous Motor Obeys Commands Verbal Confused Coma Scale Total 14 Cardiovascular Assessment Signs and Symptoms Irregular Heart Rhythm Arrhythmia on Telemetry Heart Sounds S1 & S2 Rhythm Irregular Chest Pain Complaint No Mechanical Prophylaxis No Reason Mechanical Device Not Applied Contraindicated Cardiac Monitoring Monitor Number [id number] Strip placed in Chart Yes History Reviewed Yes Memory Cleared Yes Alarms/Limits HR Alarm 120/50 SBP Alarm 160/90 SPO2 Alarm 100/90 Heart Rate 64 EKG Method Telemetry Rhythm Sinus Rhythm First Degree Block PAC Bundle Branch Block Cardiac Ectopy PAC's RI Interval 0.28 QRS Interval 0.15 QT Interval 0.34 Respiratory Assessment Respiratory Symptoms None Effort Normal for Patient Spontaneous Non-Labored Depth Normal Respiratory Pattern Regular Chest Shape Normal Expansion Symmetrical All Lung [place] Clear Right Upper Lobe Clear Right Middle Lobe Clear Right Lower Lobe Clear Left Upper Lobe Clear Left Lower Lobe Clear Right Upper Lobe Clear Right Middle Lobe Clear Right Lower Lobe Clear Diminished Left Upper Lobe Clear Left Lower Lobe Clear Diminished Oxygen Delivery Method Nasal Cannula Oxygen Flow Rate (LPM) 1.5 FIO2 (%) (%) 21 Cough Description None Sputum Amount None Comment: . Document 04/26/16 10:13 JOY[facility] (Rec: 04/26/16 13:23 JO[facility] [id number]) Neurological Assessment Eye Opening Spontaneous Motor Obeys Commands Verbal Confused Coma Scale Total 14 Neurologic Status Agitation/Confusion Patient Orientation Person Arousable To Name Speech Pattern Inappropriate to situation Mumbled Patient Behavior Crying Restless Confused Mood Description Sad Left Pupil Reaction Reactive Pupil Size (mm) 2 Right Pupil [place] PERRL Sensory Vision impaired Road Gang Supervisor Strength Bilat Weak Push/Pull Bilat Weak Numbness/Tingling No Facial Symmetry Symmetrical Cardiovascular Assessment Signs and Symptoms None Heart Sounds S1 & S2 Right Radial 2+ Left Radial 2+ Left Popliteal Amputated Right Dorsalis Pedis Unable to Assess Left Dorsalis Pedis Amputated Left Posterior Tibialis Amputated Jugular Vein Distention None Capillary Refill > 3 Seconds Circulatory Tenderness Description None Mechanical Prophylaxis No Cardiac Monitoring Monitor Number [id number] Strip placed in Chart No History Reviewed No Memory Cleared No Alarms/Limits HR Alarm 120/50 SBP Alarm 160/90 SPO2 Alarm 100/90 Respiratory Assessment Respiratory Symptoms Difficulty Clearing Secretions Mouth Breathing Effort Normal for Patient Depth Normal Respiratory Pattern Regular Chest Shape Normal Expansion Symmetrical All Lung [place] Expiratory Rhonchi Oxygen Delivery Method Nasal Cannula Oxygen Flow Rate (LPM) 1 Cough Description None Sputum Amount None Gastrointestinal Assessment Abdomen Description Soft Non-Tender Round Nausea/Vomiting Presence None All Four Quadrants Active Genitourinary Assessment Genitourinary Symptoms None Voiding Method Indwelling Catheter Urine Appearance Clear Color Dark Yellow Odor Strong Bladder Distention None Suprapubic Tenderness with Palpation No Integumentary Assessment Fingernail Condition Fungal Infection Fingernail Color Yellow Nail Bed Appearance [place] Temperature Warm Moisture Dry Evidence of Incision/Wounds/Breakdown Yes Mucous membranes moist, pink and intact No Oral Cavity Missing Teeth Other (See Comments) Integumentary Comment: Mouth dry, using oral solution to help keep mouth moist Musculoskeletal Assessment Musculoskeletal Symptoms Left Leg Amputee Document 04/26/16 10:33 AMG (Rec: 04/26/16 11:22 AMG [id number]) Pain Assessment Pain Present Reports Pain Groin Comment When the pt was asked about pain, the pt responded by shaking her head Neurological Assessment Eye Opening Spontaneous Motor Obeys Commands Verbal Confused Coma Scale Total 14 Neurologic Status Agitation/Confusion Patient Orientation Person Speech Pattern Inappropriate to situation Mumbled Patient Behavior Crying Restless Mood Description Sad Left Pupil [place] PERRL Right Pupil [place] PERRL Right Strength Normal for Patient All Four Limbs Strength Normal for Patient Road Gang Supervisor Strength Equal Push/Pull Equal Numbness/Tingling No Facial Symmetry Symmetrical Neurological Comment: Pt has trouble following directions. Cardiovascular Assessment Signs and Symptoms None Heart Sounds S1 & S2 Right Radial 2+ Left Radial 2+ Left Popliteal Amputated Right Dorsalis Pedis Unable to Assess Left Dorsalis Pedis Amputated Left Posterior Tibialis Amputated Capillary Refill > 3 Seconds Mechanical Prophylaxis No Alarms/Limits EKG Method Telemetry Rhythm Sinus Rhythm Respiratory Assessment Respiratory Symptoms Difficulty Clearing Secretions Mouth Breathing Effort Normal for Patient Depth Normal Respiratory Pattern Regular Chest Shape Normal Expansion Symmetrical Right Upper Lobe Fine Crackles Right Middle Lobe Fine Crackles Right Lower Lobe Fine Crackles Left Upper Lobe Fine Crackles Left Lower Lobe Fine Crackles Oxygen Delivery Method Nasal Cannula Oxygen Flow Rate (LPM) 1.5 Sputum Amount None Comment: Lungs CTA on inhalation. Fine crackles on exhale. Gastrointestinal Assessment Abdomen Description Soft Round Tender Nausea/Vomiting Presence None All Four Quadrants Active Genitourinary Assessment Voiding Method Indwelling Catheter Urine Appearance Clear Color Dark Yellow Light Renee Odor Strong Bladder Distention None Comment: Decreased urine ouput than normal. Did a bladder scan to check for residual urine, with the result being no urine in the bladder. UA and C&S. Integumentary Assessment Fingernail Color Yellow Nail Bed Appearance [place] Temperature Warm Moisture Dry Evidence of Incision/Wounds/Breakdown Yes Mucous membranes moist, pink and intact Yes Oral Cavity Missing Teeth Integumentary Comment: Pressure ulcer stage 2 on coccyx. Heel wound on right foot 3x2.5x0.1. Unstagable superior heel wound on right foot 2x1.5x0. Unstagable lateral right foot wound 1. 5x1x1. Vascualar problems on lower right leg. Musculoskeletal Assessment Musculoskeletal Symptoms Left Leg Amputee Musculoskeletal Comment: Left leg amputation 2 days post op. Document 04/26/16 12:10 JOYCE (Rec: 04/26/16 13:31 JOYCE [id number]) Neurological Assessment Eye Opening Spontaneous Motor Obeys Commands Verbal Confused Coma Scale Total 14 Neurologic Status Agitation/Confusion Patient Orientation Person Arousable To Name Speech Pattern Inappropriate to situation Mumbled Patient Behavior Crying Restless Mood Description Sad Road Gang Supervisor Strength Equal Bilat Weak Push/Pull Equal Bilat Weak Numbness/Tingling No Facial Symmetry Symmetrical Cardiovascular Assessment Signs and Symptoms Arrhythmia on Telemetry Heart Sounds S1 & S2 Right Radial 2+ Left Radial 2+ Left Popliteal Amputated Right Dorsalis Pedis 2+ Unable to Assess Left Dorsalis Pedis Amputated Left Posterior Tibialis Amputated Jugular Vein Distention None Capillary Refill > 3 Seconds Circulatory Tenderness Description None Mechanical Prophylaxis No Cardiac Monitoring Monitor Number [id number] Strip placed in Chart Yes History Reviewed No Memory Cleared No Alarms/Limits HR Alarm 120/50 SBP Alarm 160/90 SPO2 Alarm 100/90 Heart Rate 65 EKG Method Telemetry Rhythm First Degree Block PAC RI Interval 0.27 QRS Interval 0.1 QT Interval 0.47 Respiratory Assessment Respiratory Symptoms Difficulty Clearing Secretions Mouth Breathing Effort Normal for Patient Depth Normal Respiratory Pattern Regular Chest Shape Normal Expansion Symmetrical All Lung [place] Expiratory Rhonchi Oxygen Delivery Method Nasal Cannula Oxygen Flow Rate (LPM) 1 Cough Description None Sputum Amount None Gastrointestinal Assessment Abdomen Description Soft Round Tender Nausea/Vomiting Presence None All Four Quadrants Active Genitourinary Assessment Genitourinary Symptoms None Voiding Method Indwelling Catheter Urine Appearance Clear Color Dark Yellow Bladder Distention None Suprapubic Tenderness with Palpation No Integumentary Assessment Fingernail Color Yellow Nail Bed Appearance [place] Temperature Warm Moisture Dry Evidence of Incision/Wounds/Breakdown Yes Mucous membranes moist, pink and intact No Oral Cavity Missing Teeth Other (See Comments) Integumentary Comment: Oral care being provided to keep mouth moist Musculoskeletal Assessment Musculoskeletal Symptoms Left Leg Amputee Musculoskeletal Comment: Left leg amputation 2 days post op. Document 04/26/16 16:20 JOYCE (Rec: 04/26/16 18:29 JOYCE [id number]) Neurological Assessment Eye Opening Spontaneous Motor Obeys Commands Verbal Confused Coma Scale Total 14 Neurologic Status Agitation/Confusion Patient Orientation Person Arousable To Name Speech Pattern Mumbled Patient Behavior Asleep Mood Description Calm Relaxed Left Pupil Size (mm) 2 Right Pupil Size (mm) 2 Sensory Vision impaired Right Strength Severe Weakness All Four Limbs Strength Severe Weakness Road Gang Supervisor Strength Equal Bilat Weak Push/Pull Equal Bilat Weak Numbness/Tingling No Facial Symmetry Symmetrical Blink Present Cough/Gag Normal Neurological Comment: Patient answers question with a yes or no and sporatically Cardiovascular Assessment Signs and Symptoms Arrhythmia on Telemetry Heart Sounds S1 & S2 Right Radial 2+ Left Radial 2+ Left Popliteal Amputated Right Dorsalis Pedis 2+ Unable to Assess Left Dorsalis Pedis Amputated Left Posterior Tibialis Amputated Jugular Vein Distention None Capillary Refill > 3 Seconds Circulatory Tenderness Description None Mechanical Prophylaxis No Cardiac Monitoring Monitor Number [id number] Strip placed in Chart Yes History Reviewed No Memory Cleared No Alarms/Limits HR Alarm 120/50 SBP Alarm 160/90 SPO2 Alarm 100/90 Heart Rate 74 EKG Method Telemetry Rhythm First Degree Block PAC RI Interval 0.17 QRS Interval 0.13 QT Interval 0.42 Respiratory Assessment Respiratory Symptoms None Unable to Lie Flat Effort Normal for Patient Depth Normal Respiratory Pattern Regular Chest Shape Normal Expansion Symmetrical All Lung [place] Coarse Crackles Expiratory Rhonchi Oxygen Delivery Method Nasal Cannula Oxygen Flow Rate (LPM) 1 Cough Description None Sputum Amount None Gastrointestinal Assessment Abdomen Description Soft Round Tender Nausea/Vomiting Presence None All Four Quadrants Active Genitourinary Assessment Genitourinary Symptoms None Voiding Method Indwelling Catheter Urine Appearance Clear Color Dark Yellow Odor Strong Bladder Distention None Suprapubic Tenderness with Palpation No Comment: 30mL of urine emptied from hope bag Integumentary Assessment Fingernail Condition Fungal Infection Fingernail Color Yellow Nail Bed Appearance Yellow Temperature Warm Moisture Dry Evidence of Incision/Wounds/Breakdown Yes Mucous membranes moist, pink and intact No Oral Cavity Missing Teeth Other (See Comments) Integumentary Comment: Oral care being provided to keep mouth moist Musculoskeletal Assessment Musculoskeletal Symptoms Left Leg Amputee Document 04/26/16 19:36 JCL (Rec: 04/26/16 23:24 JCL [id number]) Pain Assessment Pain Present Unable to Respond Groin Comment Patient confused and unable to intelligently respond. Pt refused all PO med Neurological Assessment Eye Opening Spontaneous Motor Obeys Commands Verbal Confused Coma Scale Total 14 Neurologic Status Agitation/Confusion Patient Orientation Person Arousable To Name Speech Pattern Mumbled Patient Behavior Crying Uncooperative Mood Description Withdrawn Left Pupil Reaction Reactive Pupil Size (mm) 2 Pupil [place] Equal Right Pupil Reaction Unreactive Pupil Size (mm) 2 Pupil [place] Equal Sensory Vision impaired Road Gang Supervisor Strength Equal Push/Pull Left Amputee Numbness/Tingling No Facial Symmetry Symmetrical Neurological Comment: Patient's tongue midline without devation. Patient ocationally follows commands. However, is refusing all PO medications and water. Patient turns head away and closes mouth when attempting to give medications and fluids. Cardiovascular Assessment Signs and Symptoms Arrhythmia on Telemetry Heart Sounds S1 & S2 Rhythm Regular Right Radial 2+ Left Radial 2+ Left Popliteal Amputated Right Dorsalis Pedis Doppler Left Dorsalis Pedis Amputated Right Posterior Tibialis Unable to Assess Left Posterior Tibialis Amputated Jugular Vein Distention None Capillary Refill > 3 Seconds Circulatory Tenderness Description None Chest Pain Complaint No Mechanical Prophylaxis No Cardiac Monitoring Monitor Number [id number] Strip placed in Chart Yes History Reviewed Yes Memory Cleared Yes Alarms/Limits HR Alarm 120/50 SBP Alarm 160/90 SPO2 Alarm 100/90 Heart Rate 58 EKG Method Telemetry Rhythm Sinus Bradycardia First Degree Block RI Interval 0.27 QRS Interval 0.12 QT Interval 0.39 Respiratory Assessment Respiratory Symptoms None Effort Normal for Patient Spontaneous Non-Labored Depth Normal Respiratory Pattern Regular Chest Shape Normal Expansion Symmetrical Right Upper Lobe Expiratory Rhonchi Right Middle Lobe Expiratory Rhonchi Right Lower Lobe Expiratory Rhonchi Left Upper Lobe Expiratory Rhonchi Left Lower Lobe Expiratory Rhonchi Right Upper Lobe Expiratory Rhonchi Right Middle Lobe Expiratory Rhonchi Right Lower Lobe Clear Diminished Left Upper Lobe Expiratory Rhonchi Left Lower Lobe Clear Diminished Oxygen Delivery Method Nasal Cannula Oxygen Flow Rate (LPM) 1 FIO2 (%) (%) 21 Cough Description None Sputum Amount None Comment: Patient refuses to cough when asked. Gastrointestinal Assessment Abdomen Description Soft Large Tender 3 or more loose stools, in less than 24 No hours Nausea/Vomiting Presence None GI Comment: . All Four Quadrants Active Genitourinary Assessment Genitourinary Symptoms None Bladder Pattern Normal Voiding Method Indwelling Catheter Urine Appearance Clear Color Dark Yellow Odor Strong Bladder Distention None Suprapubic Tenderness with Palpation No Comment: . Integumentary Assessment Fingernail Color Yellow Nail Bed Appearance Yellow Temperature Warm Moisture Dry Turgor Normal Color Normal All Pressure Points Assessed Yes Evidence of Incision/Wounds/Breakdown Yes Mucous membranes moist, pink and intact No Oral Cavity Missing Teeth Other (See Comments) Integumentary Comment: Patient refused oral care. Refused to open mouth. Musculoskeletal Assessment Musculoskeletal Symptoms Left Leg Amputee Musculoskeletal Comment: . Document 04/26/16 23:44 JCL (Rec: 04/27/16 01:46 JCL [id number]) Neurological Assessment Eye Opening Spontaneous Motor Obeys Commands Verbal Confused Coma Scale Total 14 Cardiovascular Assessment Signs and Symptoms Arrhythmia on Telemetry Heart Sounds S1 & S2 Rhythm Regular Chest Pain Complaint No Mechanical Prophylaxis No Cardiac Monitoring Monitor Number [id number] Strip placed in Chart Yes History Reviewed Yes Memory Cleared Yes Alarms/Limits HR Alarm 120/50 SBP Alarm 160/90 SPO2 Alarm 100/90 Heart Rate 64 EKG Method Telemetry Rhythm Sinus Rhythm First Degree Block RI Interval 0.30 QRS Interval 0.11 QT Interval 0.47 Respiratory Assessment Respiratory Symptoms None Effort Normal for Patient Spontaneous Non-Labored Depth Normal Respiratory Pattern Regular Chest Shape Normal Expansion Symmetrical Right Upper Lobe Expiratory Rhonchi Right Middle Lobe Expiratory Rhonchi Right Lower Lobe Expiratory Rhonchi Left Upper Lobe Expiratory Rhonchi Left Lower Lobe Expiratory Rhonchi Right Upper Lobe Expiratory Rhonchi Right Middle Lobe Expiratory Rhonchi Right Lower Lobe Clear Diminished Left Upper Lobe Expiratory Rhonchi Left Lower Lobe Clear Diminished Oxygen Delivery Method Nasal Cannula Oxygen Flow Rate (LPM) 1 FIO2 (%) (%) 21 Cough Description None Cough Frequency Intermittent Sputum Amount None Comment: Patient continues to refuse to cough when asked. Document 04/27/16 04:16 JCL (Rec: 04/27/16 05:32 JCL [id number]) Neurological Assessment Eye Opening Spontaneous Motor Obeys Commands Verbal Confused Coma Scale Total 14 Cardiovascular Assessment Signs and Symptoms Arrhythmia on Telemetry Heart Sounds S1 & S2 Rhythm Regular Chest Pain Complaint No Mechanical Prophylaxis No Cardiac Monitoring Monitor Number [id number] Strip placed in Chart Yes History Reviewed Yes Memory Cleared Yes Alarms/Limits HR Alarm 120/50 SBP Alarm 160/90 SPO2 Alarm 100/90 Heart Rate 71 EKG Method Telemetry Rhythm Sinus Rhythm First Degree Block RI Interval 0.31 QRS Interval 0.06 QT Interval 0.30 Respiratory Assessment Respiratory Symptoms None Effort Normal for Patient Spontaneous Non-Labored Depth Normal Respiratory Pattern Regular Chest Shape Normal Expansion Symmetrical Right Upper Lobe Expiratory Rhonchi Right Middle Lobe Expiratory Rhonchi Right Lower Lobe Expiratory Rhonchi Left Upper Lobe Expiratory Rhonchi Left Lower Lobe Expiratory Rhonchi Right Upper Lobe Expiratory Rhonchi Right Middle Lobe Expiratory Rhonchi Right Lower Lobe Clear Diminished Left Upper Lobe Expiratory Rhonchi Left Lower Lobe Clear Diminished Oxygen Delivery Method Nasal Cannula Oxygen Flow Rate (LPM) 1 Cough Description None Cough Frequency Intermittent Sputum Amount None Comment: . Document 04/27/16 07:45 KMS (Rec: 04/27/16 20:41 KMS [id number]) Pain Assessment Pain Present Reports No Pain Neurological Assessment Eye Opening Spontaneous Motor Obeys Commands Verbal Confused Coma Scale Total 14 Neurologic Status Alert Patient Orientation Person Arousable To Name Speech Pattern Normal rate Normal rhythm Normal tone Coherent Inappropriate to situation Confabulation Patient Behavior Appropriate Cooperative Anxious Fearful Distractible Talkative Confused Mood Description Labile Left Pupil Reaction Brisk Pupil Size (mm) 3 Pupil [place] Equal Right Pupil Reaction Brisk Pupil Size (mm) 3 Pupil [place] Equal Sensory Vision impaired All Four Limbs Strength Severe Weakness Road Gang Supervisor Strength Equal Bilat Weak Push/Pull Left Amputee Unable to assess Numbness/Tingling No Facial Symmetry Symmetrical Neurological Comment: Patient is significantly more alert at this time than any time yesterday. Can hold a conversation, although confabulation and inappropriate comments mixed with appropriate responses and comments. Patient can maintain eye conversation, is interested in breakfast, and cooperates with blood draw and nurse requests at this time. Of note: nurse did not attempt to move/turn patient at this time. Cardiovascular Assessment Signs and Symptoms Hypertension Heart Sounds S1 & S2 Rhythm Regular Pulse Assessment Method Auscultation Right Radial 2+ Left Radial 2+ Left Popliteal Amputated Right Dorsalis Pedis Doppler Left Dorsalis Pedis Amputated Right Posterior Tibialis Unable to Assess Left Posterior Tibialis Amputated Jugular Vein Distention None Capillary Refill < 3 Seconds Mechanical Prophylaxis No Cardiac Monitoring Monitor Number [id number] Strip placed in Chart Yes History Reviewed Yes Memory Cleared Yes Alarms/Limits HR Alarm 120/50 SBP Alarm 160/90 SPO2 Alarm 100/90 Heart Rate 65 EKG Method Telemetry Rhythm Sinus Rhythm First Degree Block Unifocal PVC's T-Wave Depression Cardiac Ectopy Rare PVC's RI Interval 0.33 QRS Interval 0.08 QT Interval 0.32 Pacemaker Assessment Cardiac Comment: Patient with grayish skin to right lower extremity below the knee. This skin is also skaley and flaking. Dressing to left leg stump is clean, dry, intact. Leg is elevated on folded blanket. Right foot with dressing from ankle to mid foot that is clean, dry, and intact. Pulses not palpable. Foot not as warm as upper body. Foot is in bolivar boot. Respiratory Assessment Respiratory Symptoms None Effort Spontaneous Non-Labored Depth Normal Respiratory Pattern Regular Chest Shape Normal Expansion Symmetrical All Lung [place] Expiratory Rhonchi Oxygen Delivery Method Nasal Cannula Oxygen Flow Rate (LPM) 1 Cough Description None Comment: Patient with expiratory rhonchi throughout. No cough noted during assessment. Gastrointestinal Assessment Abdomen Description Soft Non-Tender Large 3 or more loose stools, in less than 24 No hours Nausea/Vomiting Presence None GI Comment: Patient denies need to have a bowel movement. Patient states interest in meal. Nurse set up tray and patient picked up silverware to eat as nurse left room All Four Quadrants Active Genitourinary Assessment Genitourinary Symptoms None Voiding Method Indwelling Catheter Urine Appearance Clear Color Dark Renee Odor Strong Comment: . Integumentary Assessment Fingernail Condition Fungal Infection Fingernail Color Yellow Nail Bed Appearance Yellow Temperature Warm Moisture Dry Turgor Normal Color Normal All Pressure Points Assessed Yes Evidence of Incision/Wounds/Breakdown Yes: see wound assessment Mucous membranes moist, pink and intact No Oral Cavity Missing Teeth Other (See Comments) Integumentary Comment: Wiped patient's mouth with cloth to remove build up. Patient agrees to drink water and does so without coughing. Good effort. Patient screams out and shouts "no" when moved or turned. Musculoskeletal Assessment Musculoskeletal Symptoms Left Leg Amputee Musculoskeletal Comment: Q2 turn. Document 04/27/16 12:08 KMS (Rec: 04/27/16 20:46 KMS [id number]) Pain Assessment Pain Present Reports No Pain Neurological Assessment Eye Opening Spontaneous Motor Obeys Commands Verbal Confused Coma Scale Total 14 Neurologic Status Alert Patient Orientation Person Arousable To Name Speech Pattern Normal rate Normal rhythm Normal tone Coherent Inappropriate to situation Confabulation Patient Behavior Appropriate Cooperative Anxious Fearful Mood Description Labile Left Pupil Reaction Brisk Pupil Size (mm) 3 Pupil [place] Equal Right Pupil Reaction Brisk Pupil Size (mm) 3 Pupil [place] Equal Right Strength Severe Weakness All Four Limbs Strength Severe Weakness Road Gang Supervisor Strength Equal Bilat Weak Push/Pull Left Amputee Unable to assess Facial Symmetry Symmetrical Neurological Comment: Patient was able to complete phone calls to family with the assistance of nurse dialing phone number. Patient was able to have short conversations, but this nurse noted confabulation when in the room during conversations. Patient pleasant as long as she is not being moved. Patient yells out when no one is in the room and she is not on the phone. Yells "mommy! mommy!" Cardiovascular Assessment Signs and Symptoms None Heart Sounds S1 & S2 Rhythm Regular Pulse Assessment Method Auscultation Right Radial 2+ Left Radial 2+ Left Popliteal Amputated Right Dorsalis Pedis Doppler Left Dorsalis Pedis Amputated Right Posterior Tibialis Unable to Assess Left Posterior Tibialis Amputated Jugular Vein Distention None Capillary Refill < 3 Seconds Circulatory Tenderness Description None Mechanical Prophylaxis No Cardiac Monitoring Monitor Number [id number] Strip placed in Chart Yes History Reviewed Yes Memory Cleared Yes Alarms/Limits HR Alarm 120/50 SBP Alarm 160/90 SPO2 Alarm 100/90 Heart Rate 63 EKG Method Telemetry Rhythm Sinus Rhythm First Degree Block T-Wave Depression RI Interval 0.32 QRS Interval 0.08 QT Interval 0.40 Respiratory Assessment Respiratory Symptoms None Effort Spontaneous Non-Labored Depth Normal Respiratory Pattern Regular Chest Shape Normal Expansion Symmetrical All Lung [place] Expiratory Rhonchi Oxygen Delivery Method Nasal Cannula Cough Description None Gastrointestinal Assessment Abdomen Description Soft Non-Tender Large 3 or more loose stools, in less than 24 No hours Nausea/Vomiting Presence None All Four Quadrants Active Genitourinary Assessment Genitourinary Symptoms None Bladder Pattern Normal Incontinence Total Voiding Method Indwelling Catheter Urine Appearance Clear Color Dark Renee Odor Strong Integumentary Assessment Fingernail Condition Fungal Infection Fingernail Color Yellow Nail Bed Appearance Yellow Temperature Warm Moisture Dry Turgor Normal Color Normal All Pressure Points Assessed Yes Evidence of Incision/Wounds/Breakdown Yes: see wound assessment Mucous membranes moist, pink and intact No Oral Cavity Missing Teeth Musculoskeletal Assessment Musculoskeletal Symptoms Left Leg Amputee Document 04/27/16 17:00 KMS (Rec: 04/27/16 21:00 KMS [id number]) Pain Assessment Pain Present Reports No Pain Neurological Assessment Eye Opening Spontaneous Motor Obeys Commands Verbal Confused Coma Scale Total 14 Neurologic Status Alert Patient Orientation Person Arousable To Name Speech Pattern Normal rate Normal rhythm Normal tone Coherent Inappropriate to situation Confabulation Patient Behavior Appropriate Cooperative Anxious Fearful Mood Description Labile Left Pupil Reaction Brisk Pupil Size (mm) 3 Pupil [place] Equal Right Pupil Reaction Brisk Pupil Size (mm) 3 Pupil [place] Equal Right Strength Severe Weakness All Four Limbs Strength Severe Weakness Road Gang Supervisor Strength Equal Bilat Weak Push/Pull Left Amputee Unable to assess Numbness/Tingling No Facial Symmetry Symmetrical Neurological Comment: Patient returns from dialysis at this time. She is awake and very vocal about discomfort when being transported down the [place]. Patient with more inappropriate comments than before dialysis. Stays alert well and speaks clearly. More suspicious. Shouts out and grabs caregivers when repositioned. Cardiovascular Assessment Signs and Symptoms None Heart Sounds S1 & S2 Rhythm Regular Pulse Assessment Method Auscultation Right Radial 2+ Left Radial 2+ Left Popliteal Amputated Right Dorsalis Pedis Doppler Left Dorsalis Pedis Amputated Right Posterior Tibialis Unable to Assess Left Posterior Tibialis Amputated Jugular Vein Distention None Capillary Refill < 3 Seconds Circulatory Tenderness Description None Mechanical Prophylaxis No Cardiac Monitoring Monitor Number [id number] Strip placed in Chart Yes History Reviewed Yes Memory Cleared Yes Alarms/Limits HR Alarm 120/50 SBP Alarm 160/90 SPO2 Alarm 100/90 EKG Method Telemetry Rhythm Sinus Rhythm First Degree Block T-Wave Depression Respiratory Assessment Respiratory Symptoms None Effort Spontaneous Non-Labored Depth Normal Respiratory Pattern Regular Chest Shape Normal Expansion Symmetrical All Lung [place] Diminished Oxygen Delivery Method Room Air Cough Description None Comment: Lungs now clear Gastrointestinal Assessment Abdomen Description Soft Non-Tender Large 3 or more loose stools, in less than 24 No hours Nausea/Vomiting Presence None GI Comment: Patient verbalizes some interest in dinner. Nurse set up patient's tray, then patient did not make effort to eat. Declines help from nurse to eat dinner. Accepts sips of water. Drinks without problem All Four Quadrants Active Genitourinary Assessment Genitourinary Symptoms None Bladder Pattern Normal Incontinence Total Voiding Method Indwelling Catheter Urine Appearance Clear Color Dark Renee Odor Strong Integumentary Assessment Fingernail Condition Fungal Infection Fingernail Color Yellow Nail Bed Appearance Yellow Temperature Warm Moisture Dry Turgor Normal Color Normal All Pressure Points Assessed Yes Evidence of Incision/Wounds/Breakdown Yes: see wound assessment Mucous membranes moist, pink and intact No Oral Cavity Missing Teeth Musculoskeletal Assessment Musculoskeletal Symptoms Left Leg Amputee Document 04/27/16 19:45 BANNER (Rec: 04/27/16 21:14 BANNER [id number]) Neurological Assessment Eye Opening Spontaneous Motor Obeys Commands Verbal Confused Coma Scale Total 14 Neurologic Status Alert Patient Orientation Person Arousable To Name Speech Pattern Normal rate Normal rhythm Normal tone Coherent Inappropriate to situation Confabulation Patient Behavior Appropriate Cooperative Anxious Fearful Mood Description Labile Left Pupil Reaction Brisk Pupil Size (mm) 3 Pupil [place] Equal Right Pupil Reaction Brisk Pupil Size (mm) 3 Pupil [place] Equal Sensory Vision impaired Right Strength Severe Weakness All Four Limbs Strength Severe Weakness Road Gang Supervisor Strength Equal Bilat Weak Push/Pull Left Amputee Unable to assess Facial Symmetry Symmetrical Cardiovascular Assessment Signs and Symptoms None Heart Sounds S1 & S2 Pulse Rate 74 Right Radial 2+ Left Radial 2+ Left Popliteal Amputated Right Dorsalis Pedis Doppler Left Dorsalis Pedis Amputated Right Posterior Tibialis Unable to Assess Left Posterior Tibialis Amputated Jugular Vein Distention None Capillary Refill < 3 Seconds Circulatory Tenderness Description None Chest Pain Complaint No Mechanical Prophylaxis No Cardiac Monitoring Monitor Number [id number] Strip placed in Chart Yes History Reviewed Yes Memory Cleared Yes Alarms/Limits HR Alarm 120/50 SBP Alarm 160/90 SPO2 Alarm 100/90 Heart Rate 66 EKG Method Telemetry Rhythm Sinus Rhythm First Degree Block T-Wave Depression RI Interval 0.29 QRS Interval 0.12 QT Interval 0.47 Respiratory Assessment Respiratory Symptoms None Effort Spontaneous Non-Labored Depth Normal Respiratory Pattern Regular Chest Shape Normal Expansion Symmetrical All Lung [place] Diminished Expiratory Rhonchi Scattered Oxygen Delivery Method Room Air Cough Description None Cough Frequency Intermittent Sputum Amount None Gastrointestinal Assessment Abdomen Description Soft Non-Tender Large 3 or more loose stools, in less than 24 No hours Nausea/Vomiting Presence None All Four Quadrants Active Genitourinary Assessment Genitourinary Symptoms None Bladder Pattern Normal Incontinence Total Voiding Method Indwelling Catheter Urine Appearance Clear Color Dark Renee Odor Strong Bladder Distention None Suprapubic Tenderness with Palpation No Integumentary Assessment Fingernail Condition Fungal Infection Fingernail Color Yellow Nail Bed Appearance Yellow Temperature Warm Moisture Dry Turgor Normal Color Normal All Pressure Points Assessed Yes Evidence of Incision/Wounds/Breakdown Yes: see wound assessment Mucous membranes moist, pink and intact No Oral Cavity Missing Teeth Musculoskeletal Assessment Musculoskeletal Symptoms Left Leg Amputee Document 04/28/16 00:10 BANNER (Rec: 04/28/16 02:31 BANNER [id number]) Neurological Assessment Eye Opening Spontaneous Motor Obeys Commands Verbal Confused Coma Scale Total 14 Neurologic Status Alert Patient Orientation Person Arousable To Name Speech Pattern Normal rate Normal rhythm Normal tone Coherent Inappropriate to situation Confabulation Patient Behavior Appropriate Cooperative Anxious Fearful Mood Description Labile Left Pupil Reaction Brisk Pupil Size (mm) 3 Pupil [place] Equal Right Pupil Reaction Brisk Pupil Size (mm) 3 Pupil [place] Equal Sensory Vision impaired Right Strength Severe Weakness All Four Limbs Strength Severe Weakness Road Gang Supervisor Strength Equal Bilat Weak Push/Pull Left Amputee Unable to assess Numbness/Tingling No Facial Symmetry Symmetrical Blink Present Cough/Gag Normal Cardiovascular Assessment Signs and Symptoms None Heart Sounds S1 & S2 Pulse Rate 73 Rhythm Regular Pulse Assessment Method Auscultation Right Radial 2+ Left Radial 2+ Left Popliteal Amputated Right Dorsalis Pedis Doppler Left Dorsalis Pedis Amputated Right Posterior Tibialis Unable to Assess Left Posterior Tibialis Amputated Jugular Vein Distention None Capillary Refill < 3 Seconds Circulatory Tenderness Description None Chest Pain Complaint No Mechanical Prophylaxis No Cardiac Monitoring Monitor Number [id number] Strip placed in Chart Yes History Reviewed Yes Memory Cleared Yes Alarms/Limits Heart Rate 73 EKG Method Telemetry Rhythm Sinus Rhythm First Degree Block T-Wave Depression RI Interval 0.28 QRS Interval 0.11 QT Interval 0.44 Respiratory Assessment Respiratory Symptoms None Effort Spontaneous Non-Labored Depth Normal Respiratory Pattern Regular Chest Shape Normal Expansion Symmetrical All Lung [place] Diminished Expiratory Rhonchi Scattered Oxygen Delivery Method Room Air FIO2 (%) (%) 21 Cough Description None Cough Frequency Intermittent Sputum Amount None Gastrointestinal Assessment Abdomen Description Soft Non-Tender Large 3 or more loose stools, in less than 24 No hours Nausea/Vomiting Presence None All Four Quadrants Active Flatus Presence Present Genitourinary Assessment Genitourinary Symptoms None Bladder Pattern Normal Incontinence Total Voiding Method Indwelling Catheter Urine Appearance Clear Color Dark Yellow Odor Strong Bladder Distention None Suprapubic Tenderness with Palpation No Comment: . Integumentary Assessment Fingernail Condition Fungal Infection Fingernail Color Yellow Nail Bed Appearance Yellow Temperature Warm Moisture Dry Turgor Normal Color Normal All Pressure Points Assessed Yes Evidence of Incision/Wounds/Breakdown Yes: see wound assessment Mucous membranes moist, pink and intact No Oral Cavity Missing Teeth Musculoskeletal Assessment Musculoskeletal Symptoms Left Leg Amputee Musculoskeletal Comment: Q2 turn. Document 04/28/16 04:10 KORIN (Rec: 04/28/16 08:04 KORIN [id number]) Pain Assessment Pain Present Reports Pain Left Knee Pain Intensity 10 Description Ache Phantom Scale Used Numeric (1 - 10) Pain Intervention Medication Position Distraction Reduced Environmental Stimuli Darkened Room Posterior Pain Intensity 10 Neurological Assessment Eye Opening Spontaneous Motor Obeys Commands Verbal Confused Coma Scale Total 14 Neurologic Status Alert Patient Orientation Person Arousable To Name Speech Pattern Normal rate Normal rhythm Normal tone Coherent Inappropriate to situation Confabulation Patient Behavior Appropriate Cooperative Anxious Fearful Mood Description Labile Left Pupil Reaction Brisk Pupil Size (mm) 3 Pupil [place] Equal Right Pupil Reaction Brisk Pupil Size (mm) 3 Pupil [place] Equal Sensory Vision impaired Right Strength Severe Weakness All Four Limbs Strength Severe Weakness Road Gang Supervisor Strength Equal Bilat Weak Push/Pull Left Amputee Unable to assess Numbness/Tingling No Facial Symmetry Symmetrical Blink Present Cough/Gag Normal Cardiovascular Assessment Signs and Symptoms None Heart Sounds S1 & S2 Pulse Rate 70 Rhythm Regular Pulse Assessment Method Auscultation Right Radial 2+ Left Radial 2+ Left Popliteal Amputated Right Dorsalis Pedis Doppler Left Dorsalis Pedis Amputated Right Posterior Tibialis Unable to Assess Left Posterior Tibialis Amputated Jugular Vein Distention None Capillary Refill < 3 Seconds Circulatory Tenderness Description None Chest Pain Complaint No Mechanical Prophylaxis No Cardiac Monitoring Monitor Number [id number] Strip placed in Chart Yes History Reviewed Yes Memory Cleared Yes Alarms/Limits HR Alarm 120/50 SBP Alarm 160/90 SPO2 Alarm 100/90 Heart Rate 70 EKG Method Telemetry Rhythm Sinus Rhythm First Degree Block T-Wave Depression RI Interval 0.28 QRS Interval 0.11 QT Interval 0.49 Pacemaker Assessment Cardiac Comment: Patient with grayish skin to right lower extremity below the knee. This skin is also skaley and flaking. Dressing to left leg stump is clean, dry, intact. Leg is elevated on folded blanket. Right foot with dressing from ankle to mid foot that is clean, dry, and intact. Pulses not palpable. Foot not as warm as upper body. Foot is in bolivar boot. Respiratory Assessment Respiratory Symptoms None Effort Spontaneous Non-Labored Depth Normal Respiratory Pattern Regular Chest Shape Normal Expansion Symmetrical All Lung [place] Diminished Expiratory Rhonchi Scattered Right Upper Lobe Expiratory Rhonchi Right Middle Lobe Expiratory Rhonchi Right Lower Lobe Expiratory Rhonchi Left Upper Lobe Expiratory Rhonchi Left Lower Lobe Expiratory Rhonchi Right Upper Lobe Expiratory Rhonchi Right Middle Lobe Expiratory Rhonchi Right Lower Lobe Clear Diminished Left Upper Lobe Expiratory Rhonchi Left Lower Lobe Clear Diminished Oxygen Delivery Method Room Air Oxygen Flow Rate (LPM) 0 FIO2 (%) (%) 21 Cough Description None Cough Frequency Intermittent Sputum Amount None Comment: Lungs now clear Gastrointestinal Assessment Abdomen Description Soft Non-Tender Large 3 or more loose stools, in less than 24 No hours Nausea/Vomiting Presence None GI Comment: Patient verbalizes some interest in dinner. Nurse set up patient's tray, then patient did not make effort to eat. Declines help from nurse to eat dinner. Accepts sips of water. Drinks without problem All Four Quadrants Active Flatus Presence Present Genitourinary Assessment Genitourinary Symptoms None Bladder Pattern Normal Incontinence Total Voiding Method Indwelling Catheter Urine Appearance Clear Color Dark Yellow Odor Strong Bladder Distention None Suprapubic Tenderness with Palpation No Comment: . Integumentary Assessment Fingernail Condition Fungal Infection Fingernail Color Yellow Nail Bed Appearance Yellow Temperature Warm Moisture Dry Turgor Normal Color Normal All Pressure Points Assessed Yes Evidence of Incision/Wounds/Breakdown Yes: see wound assessment Mucous membranes moist, pink and intact No Oral Cavity Missing Teeth Integumentary Comment: Wiped patient's mouth with cloth to remove build up. Patient agrees to drink water and does so without coughing. Good effort. Patient screams out and shouts "no" when moved or turned. Musculoskeletal Assessment Musculoskeletal Symptoms Left Leg Amputee Musculoskeletal Comment: Q2 turn. Document 04/28/16 08:00 LY(2) (Rec: 04/28/16 08:58 ALYCEG(2) [id number]) Neurological Assessment Eye Opening Spontaneous Motor Obeys Commands Verbal Confused Coma Scale Total 14 Neurologic Status Alert Patient Orientation Person Arousable To Name Speech Pattern Coherent Inappropriate to situation Rambling Repetitive Confabulation Patient Behavior Anxious Fearful Mood Description Anxious Left Pupil Reaction Brisk Pupil Size (mm) 3 Pupil [place] Equal Right Pupil Reaction Brisk Pupil Size (mm) 3 Pupil [place] Equal Sensory Vision impaired Right Strength Severe Weakness All Four Limbs Strength Severe Weakness Road Gang Supervisor Strength Equal Bilat Weak Push/Pull Left Amputee Unable to assess Numbness/Tingling No Facial Symmetry Symmetrical Cardiovascular Assessment Signs and Symptoms None Heart Sounds S1 & S2 Pulse Rate 69 Rhythm Regular Pulse Assessment Method Auscultation Right Radial 2+ Left Radial 2+ Left Popliteal Amputated Right Dorsalis Pedis Doppler Left Dorsalis Pedis Amputated Right Posterior Tibialis Unable to Assess Left Posterior Tibialis Amputated Jugular Vein Distention None Capillary Refill < 3 Seconds Circulatory Tenderness Description None Mechanical Prophylaxis No Cardiac Monitoring Monitor Number [id number] Strip placed in Chart Yes History Reviewed Yes Memory Cleared Yes Alarms/Limits HR Alarm 120/50 SBP Alarm 160/90 SPO2 Alarm 100/90 Heart Rate 69 EKG Method Telemetry Rhythm Sinus Rhythm First Degree Block RI Interval 0.30 QRS Interval 0.12 QT Interval 0.47 Respiratory Assessment Respiratory Symptoms None Effort Spontaneous Non-Labored Depth Normal Respiratory Pattern Regular Chest Shape Normal Expansion Symmetrical Right Upper Lobe Expiratory Rhonchi Right Middle Lobe Expiratory Rhonchi Right Lower Lobe Expiratory Rhonchi Left Upper Lobe Expiratory Rhonchi Left Lower Lobe Expiratory Rhonchi Right Upper Lobe Expiratory Rhonchi Right Middle Lobe Expiratory Rhonchi Right Lower Lobe Clear Diminished Left Upper Lobe Expiratory Rhonchi Left Lower Lobe Clear Diminished Oxygen Delivery Method Room Air Oxygen Flow Rate (LPM) 0 FIO2 (%) (%) 21 Cough Description None Cough Frequency Intermittent Sputum Amount None Gastrointestinal Assessment Abdomen Description Soft Non-Tender Large 3 or more loose stools, in less than 24 No hours Nausea/Vomiting Presence None All Four Quadrants Active Genitourinary Assessment Genitourinary Symptoms None Bladder Pattern Normal Incontinence Total Voiding Method Indwelling Catheter Urine Appearance Clear Color Dark Yellow Odor Strong Bladder Distention None Suprapubic Tenderness with Palpation No Integumentary Assessment Fingernail Condition Fungal Infection Fingernail Color Yellow Nail Bed Appearance Yellow Temperature Warm Moisture Dry Turgor Normal Color Normal All Pressure Points Assessed Yes Evidence of Incision/Wounds/Breakdown Yes: see wound assessment Mucous membranes moist, pink and intact No Oral Cavity Missing Teeth Musculoskeletal Assessment Musculoskeletal Symptoms Left Leg Amputee Document 04/28/16 12:00 JNG(2) (Rec: 04/28/16 12:06 JNG(2) [id number]) Pain Assessment Pain Present Reports No Pain Neurological Assessment Eye Opening Spontaneous Motor Obeys Commands Verbal Confused Coma Scale Total 14 Neurologic Status Alert Patient Orientation Person Arousable To Name Speech Pattern Coherent Inappropriate to situation Rambling Repetitive Confabulation Patient Behavior Anxious Fearful Mood Description Anxious Left Pupil Reaction Brisk Pupil Size (mm) 3 Pupil [place] Equal Right Pupil Reaction Brisk Pupil Size (mm) 3 Pupil [place] Equal Sensory Vision impaired Right Strength Severe Weakness All Four Limbs Strength Severe Weakness Road Gang Supervisor Strength Equal Bilat Weak Push/Pull Left Amputee Unable to assess Numbness/Tingling No Facial Symmetry Symmetrical Cardiovascular Assessment Signs and Symptoms None Heart Sounds S1 & S2 Pulse Rate 76 Rhythm Regular Pulse Assessment Method Auscultation Right Radial 2+ Left Radial 2+ Left Popliteal Amputated Right Dorsalis Pedis Doppler Left Dorsalis Pedis Amputated Right Posterior Tibialis Unable to Assess Left Posterior Tibialis Amputated Jugular Vein Distention None Capillary Refill < 3 Seconds Circulatory Tenderness Description None Mechanical Prophylaxis No Cardiac Monitoring Monitor Number [id number] Strip placed in Chart Yes History Reviewed Yes Memory Cleared Yes Alarms/Limits HR Alarm 120/50 SBP Alarm 160/90 SPO2 Alarm 100/90 Heart Rate 76 EKG Method Telemetry Rhythm Sinus Rhythm First Degree Block RI Interval 0.25 QRS Interval 0.13 QT Interval 0.42 Respiratory Assessment Respiratory Symptoms None Effort Spontaneous Non-Labored Depth Normal Respiratory Pattern Regular Chest Shape Normal Expansion Symmetrical Right Upper Lobe Expiratory Rhonchi Right Middle Lobe Expiratory Rhonchi Right Lower Lobe Expiratory Rhonchi Left Upper Lobe Expiratory Rhonchi Left Lower Lobe Expiratory Rhonchi Right Upper Lobe Expiratory Rhonchi Right Middle Lobe Expiratory Rhonchi Right Lower Lobe Clear Diminished Left Upper Lobe Expiratory Rhonchi Left Lower Lobe Clear Diminished Oxygen Delivery Method Room Air Oxygen Flow Rate (LPM) 0 FIO2 (%) (%) 21 Cough Description None Gastrointestinal Assessment Abdomen Description Soft Non-Tender Nausea/Vomiting Presence None All Four Quadrants Active Genitourinary Assessment Genitourinary Symptoms None Bladder Pattern Normal Incontinence Total Voiding Method Indwelling Catheter Urine Appearance Clear Color Dark Yellow Odor Strong Bladder Distention None Suprapubic Tenderness with Palpation No Integumentary Assessment Fingernail Condition Fungal Infection Fingernail Color Yellow Nail Bed Appearance Yellow Temperature Warm Moisture Dry Color [place] Mucous membranes moist, pink and intact No Oral Cavity Missing Teeth Musculoskeletal Assessment Musculoskeletal Symptoms Left Leg Amputee Document 04/28/16 15:53 JNG(2) (Rec: 04/28/16 15:57 JNG(2) [id number]) Neurological Assessment Eye Opening Spontaneous Motor Obeys Commands Verbal Confused Coma Scale Total 14 Neurologic Status Agitation/Confusion Patient Orientation Person Arousable To Name Speech Pattern Coherent Inappropriate to situation Rambling Repetitive Confabulation Patient Behavior Anxious Fearful Mood Description Anxious Left Pupil Reaction Brisk Pupil Size (mm) 3 Pupil [place] Equal Right Pupil Reaction Brisk Pupil Size (mm) 3 Pupil [place] Equal Sensory Vision impaired Right Strength Severe Weakness All Four Limbs Strength Severe Weakness Road Gang Supervisor Strength Equal Bilat Weak Push/Pull Left Amputee Unable to assess Numbness/Tingling No Facial Symmetry Symmetrical Cardiovascular Assessment Signs and Symptoms None Heart Sounds S1 & S2 Pulse Rate 82 Rhythm Regular Pulse Assessment Method Auscultation Right Radial 2+ Left Radial 2+ Left Popliteal Amputated Right Dorsalis Pedis Doppler Left Dorsalis Pedis Amputated Right Posterior Tibialis Unable to Assess Left Posterior Tibialis Amputated Jugular Vein Distention None Capillary Refill < 3 Seconds Circulatory Tenderness Description None Mechanical Prophylaxis No Cardiac Monitoring Monitor Number [id number] Strip placed in Chart Yes History Reviewed Yes Memory Cleared Yes Alarms/Limits HR Alarm 120/50 SBP Alarm 160/90 SPO2 Alarm 100/90 Heart Rate 82 EKG Method Telemetry Rhythm Sinus Rhythm First Degree Block RI Interval 0.28 QRS Interval 0.13 QT Interval 0.39 Respiratory Assessment Respiratory Symptoms None Effort Spontaneous Non-Labored Depth Normal Respiratory Pattern Regular Chest Shape Normal Expansion Symmetrical Right Upper Lobe Expiratory Rhonchi Right Middle Lobe Expiratory Rhonchi Right Lower Lobe Expiratory Rhonchi Left Upper Lobe Expiratory Rhonchi Left Lower Lobe Expiratory Rhonchi Right Upper Lobe Expiratory Rhonchi Right Middle Lobe Expiratory Rhonchi Right Lower Lobe Clear Diminished Left Upper Lobe Expiratory Rhonchi Left Lower Lobe Clear Diminished Oxygen Delivery Method Room Air Oxygen Flow Rate (LPM) 0 FIO2 (%) (%) 21 Cough Description None Gastrointestinal Assessment Abdomen Description Soft Non-Tender Nausea/Vomiting Presence None All Four Quadrants Active Genitourinary Assessment Genitourinary Symptoms None Bladder Pattern Normal Incontinence Total Voiding Method Indwelling Catheter Urine Appearance Clear Color Dark Yellow Odor Strong Bladder Distention None Suprapubic Tenderness with Palpation No Integumentary Assessment Fingernail Condition Fungal Infection Fingernail Color Yellow Nail Bed Appearance Yellow Temperature Warm Moisture Dry Color [place] Mucous membranes moist, pink and intact No Oral Cavity Missing Teeth Musculoskeletal Assessment Musculoskeletal Symptoms Left Leg Amputee Document 04/28/16 19:57 BANNER (Rec: 04/28/16 20:22 BANNER [id number]) Neurological Assessment Eye Opening Spontaneous Motor Obeys Commands Verbal Confused Coma Scale Total 14 Neurologic Status Agitation/Confusion Patient Orientation Person Arousable To Name Speech Pattern Coherent Inappropriate to situation Rambling Repetitive Confabulation Patient Behavior Anxious Fearful Mood Description Anxious Left Pupil Reaction Brisk Pupil Size (mm) 3 Pupil [place] Equal Right Pupil Reaction Brisk Pupil Size (mm) 3 Pupil [place] Equal Sensory Vision impaired Right Strength Severe Weakness All Four Limbs Strength Severe Weakness Road Gang Supervisor Strength Equal Bilat Weak Push/Pull Left Amputee Unable to assess Numbness/Tingling No Facial Symmetry Symmetrical Blink Present Cough/Gag Normal Cardiovascular Assessment Signs and Symptoms None Heart Sounds S1 & S2 Pulse Rate 81 Right Radial 2+ Left Radial 2+ Left Popliteal Amputated Right Dorsalis Pedis Doppler Left Dorsalis Pedis Amputated Right Posterior Tibialis Unable to Assess Left Posterior Tibialis Amputated Jugular Vein Distention None Capillary Refill < 3 Seconds Circulatory Tenderness Description None left arm Type Non-Pitting Chest Pain Complaint No Mechanical Prophylaxis No Cardiac Monitoring Monitor Number [id number] Strip placed in Chart Yes History Reviewed Yes Memory Cleared Yes Alarms/Limits HR Alarm 120/50 SBP Alarm 160/90 SPO2 Alarm 100/90 Heart Rate 82 EKG Method Telemetry Rhythm Sinus Rhythm First Degree Block RI Interval 0.28 QRS Interval 0.13 QT Interval 0.39 Respiratory Assessment All Lung [place] Clear Diminished Oxygen Delivery Method Room Air Oxygen Flow Rate (LPM) 0 FIO2 (%) (%) 21 Cough Description None Cough Frequency Intermittent Gastrointestinal Assessment Abdomen Description Soft Non-Tender Nausea/Vomiting Presence None All Four Quadrants Active Flatus Presence Present Genitourinary Assessment Genitourinary Symptoms None Bladder Pattern Normal Incontinence Total Voiding Method Indwelling Catheter Urine Appearance Clear Color Dark Yellow Odor Strong Bladder Distention None Suprapubic Tenderness with Palpation No Integumentary Assessment Fingernail Condition Fungal Infection Fingernail Color Yellow Nail Bed Appearance Yellow Temperature Warm Moisture Dry Color [place] Mucous membranes moist, pink and intact No Oral Cavity Missing Teeth Musculoskeletal Assessment Musculoskeletal Symptoms Left Leg Amputee Musculoskeletal Comment: Q2 turn. Document 04/29/16 00:40 OKRIN (Rec: 04/29/16 02:26 KORIN [id number]) Pain Assessment Pain Present Reports Pain Groin Pain Intensity 0 Left Knee Pain Intensity 10 Description Acute Phantom With Movement Scale Used Numeric (1 - 10) Pain Intervention Medication Position Distraction Reduced Environmental Stimuli Darkened Room Posterior Pain Intensity 10 Description Burning Ache Scale Used Numeric (1 - 10) Pain Intervention Medication Position Distraction Reduced Environmental Stimuli Darkened Room Neurological Assessment Eye Opening Spontaneous Motor Obeys Commands Verbal Confused Coma Scale Total 14 Neurologic Status Agitation/Confusion Patient Orientation Person Arousable To Name Speech Pattern Coherent Inappropriate to situation Rambling Repetitive Confabulation Patient Behavior Anxious Fearful Mood Description Anxious Left Pupil Reaction Brisk Pupil Size (mm) 3 Pupil [place] Equal Right Pupil Reaction Brisk Pupil Size (mm) 3 Pupil [place] Equal Sensory Vision impaired Right Strength Severe Weakness All Four Limbs Strength Severe Weakness Road Gang Supervisor Strength Equal Bilat Weak Push/Pull Left Amputee Unable to assess Numbness/Tingling No Facial Symmetry Symmetrical Blink Present Cough/Gag Normal Cardiovascular Assessment Signs and Symptoms None Heart Sounds S1 & S2 Pulse Rate 85 Rhythm Regular Pulse Assessment Method Auscultation Right Radial 2+ Left Radial 2+ Left Popliteal Amputated Right Dorsalis Pedis Doppler Left Dorsalis Pedis Amputated Right Posterior Tibialis Unable to Assess Left Posterior Tibialis Amputated Jugular Vein Distention None Capillary Refill < 3 Seconds Circulatory Tenderness Description None left arm Type Non-Pitting Chest Pain Complaint No Mechanical Prophylaxis No Cardiac Monitoring Monitor Number [id number] Strip placed in Chart Yes History Reviewed Yes Memory Cleared Yes Alarms/Limits HR Alarm 120/50 SBP Alarm 160/90 SPO2 Alarm 100/90 Heart Rate 85 EKG Method Telemetry Rhythm Sinus Rhythm First Degree Block RI Interval 0.28 QRS Interval 0.12 QT Interval 0.41 Respiratory Assessment Respiratory Symptoms None Effort Spontaneous Non-Labored Depth Normal Respiratory Pattern Regular Chest Shape Normal Expansion Symmetrical All Lung [place] Clear Diminished Oxygen Delivery Method Nasal Cannula Oxygen Flow Rate (LPM) 2 Cough Description None Cough Frequency Intermittent Sputum Amount None Gastrointestinal Assessment Abdomen Description Soft Non-Tender Nausea/Vomiting Presence None All Four Quadrants Active Flatus Presence Present Genitourinary Assessment Genitourinary Symptoms None Bladder Pattern Normal Incontinence Total Voiding Method Indwelling Catheter Urine Appearance Clear Color Tea Colored Odor Strong Bladder Distention None Suprapubic Tenderness with Palpation No Integumentary Assessment Fingernail Condition Fungal Infection Fingernail Color Yellow Nail Bed Appearance Yellow Temperature Warm Moisture Dry Color [place] Mucous membranes moist, pink and intact No Oral Cavity Missing Teeth Musculoskeletal Assessment Musculoskeletal Symptoms Left Leg Amputee Musculoskeletal Comment: Q2 turn. Document 04/29/16 03:20 KORIN (Rec: 04/29/16 06:36 KORIN [id number]) Pain Assessment Pain Present Reports Pain Groin Pain Intensity 0 Left Knee Pain Intensity 5 Description Acute Phantom With Movement Scale Used Mary Ellen (Faces) Description of Site dressing c/d/i Pain Intervention Position Distraction Music Therapy Reduced Environmental Stimuli Darkened Room Posterior Pain Intensity 5 Description Ache Scale Used Numeric (1 - 10) Pain Intervention Position Reduced Environmental Stimuli Darkened Room Neurological Assessment Eye Opening Spontaneous Motor Obeys Commands Verbal Confused Coma Scale Total 14 Neurologic Status Agitation/Confusion Patient Orientation Person Arousable To Name Speech Pattern Coherent Inappropriate to situation Rambling Repetitive Confabulation Patient Behavior Anxious Fearful Mood Description Anxious Left Pupil Reaction Brisk Pupil Size (mm) 3 Pupil [place] Equal Right Pupil Reaction Brisk Pupil Size (mm) 3 Pupil [place] Equal Sensory Vision impaired Right Strength Severe Weakness All Four Limbs Strength Severe Weakness Road Gang Supervisor Strength Equal Bilat Weak Push/Pull Left Amputee Unable to assess Numbness/Tingling No Facial Symmetry Symmetrical Blink Present Cough/Gag Normal Cardiovascular Assessment Signs and Symptoms None Heart Sounds S1 & S2 Pulse Rate 87 Rhythm Regular Pulse Assessment Method Auscultation Right Radial 2+ Left Radial 2+ Left Popliteal Amputated Right Dorsalis Pedis Doppler Left Dorsalis Pedis Amputated Right Posterior Tibialis Unable to Assess Left Posterior Tibialis Amputated Jugular Vein Distention None Capillary Refill < 3 Seconds Circulatory Tenderness Description None left arm Type Non-Pitting Chest Pain Complaint No Mechanical Prophylaxis No Cardiac Monitoring Monitor Number [id number] Strip placed in Chart Yes History Reviewed Yes Memory Cleared Yes Alarms/Limits HR Alarm 120/50 SBP Alarm 160/90 SPO2 Alarm 100/90 Heart Rate 87 EKG Method Telemetry Rhythm Sinus Rhythm First Degree Block RI Interval 0.26 QRS Interval 0.13 QT Interval 0.41 Respiratory Assessment Respiratory Symptoms None Effort Spontaneous Non-Labored Depth Normal Respiratory Pattern Regular Chest Shape Normal Expansion Symmetrical All Lung [place] Clear Diminished Oxygen Delivery Method Room Air Cough Description None Cough Frequency Intermittent Sputum Amount None Comment: pt. with congestion noted to throat area, enouraged to cough but pt. needs reminded frequently. Gastrointestinal Assessment Abdomen Description Soft Non-Tender Nausea/Vomiting Presence None GI Comment: Accepts sips of water with encouragement,Drinks without problem All Four Quadrants Active Flatus Presence Present Genitourinary Assessment Genitourinary Symptoms None Bladder Pattern Normal Incontinence Total Voiding Method Indwelling Catheter Urine Appearance Clear Color Tea Colored Odor Strong Bladder Distention None Suprapubic Tenderness with Palpation No Comment: . Integumentary Assessment Fingernail Condition Fungal Infection Fingernail Color Yellow Nail Bed Appearance Yellow Temperature Warm Moisture Dry Color [place] Mucous membranes moist, pink and intact No Oral Cavity Missing Teeth Integumentary Comment: pt.. resuing mouth care. shut mouth tight to prevent use of swab. Musculoskeletal Assessment Musculoskeletal Symptoms Left Leg Amputee Musculoskeletal Comment: Q2 turn. Document 04/29/16 07:00 JNG(2) (Rec: 04/29/16 08:59 JNG(2) [id number]) Pain Assessment Pain Present Reports No Pain Neurological Assessment Eye Opening Spontaneous Motor Localizes to Pain Verbal Confused Coma Scale Total 13 Neurologic Status Agitation/Confusion Patient Orientation Person Arousable To Name Speech Pattern Inappropriate to situation Rambling Repetitive Confabulation Patient Behavior Anxious Fearful Mood Description Anxious Left Pupil Reaction Brisk Pupil Size (mm) 3 Pupil [place] Equal Right Pupil Reaction Brisk Pupil Size (mm) 3 Pupil [place] Equal Sensory Vision impaired Right Strength Severe Weakness All Four Limbs Strength Severe Weakness Road Gang Supervisor Strength Equal Bilat Weak Push/Pull Left Amputee Unable to assess Numbness/Tingling No Facial Symmetry Symmetrical Cardiovascular Assessment Signs and Symptoms None Heart Sounds S1 & S2 Pulse Rate 87 Rhythm Regular Pulse Assessment Method Auscultation Right Radial 2+ Left Radial 2+ Left Popliteal Amputated Right Dorsalis Pedis Doppler Left Dorsalis Pedis Amputated Right Posterior Tibialis Unable to Assess Left Posterior Tibialis Amputated Jugular Vein Distention None Capillary Refill < 3 Seconds Circulatory Tenderness Description None Mechanical Prophylaxis No Cardiac Monitoring Monitor Number [id number] Strip placed in Chart Yes History Reviewed Yes Memory Cleared Yes Alarms/Limits HR Alarm 120/50 SBP Alarm 160/90 SPO2 Alarm 100/90 Heart Rate 87 EKG Method Telemetry Rhythm Sinus Rhythm First Degree Block RI Interval 0.27 QRS Interval 0.14 QT Interval 0.38 Respiratory Assessment Respiratory Symptoms None Effort Spontaneous Non-Labored Depth Normal Respiratory Pattern Regular Chest Shape Normal Expansion Symmetrical Right Upper Lobe Expiratory Rhonchi Right Middle Lobe Expiratory Rhonchi Right Lower Lobe Expiratory Rhonchi Left Upper Lobe Expiratory Rhonchi Left Lower Lobe Expiratory Rhonchi Right Upper Lobe Expiratory Rhonchi Right Middle Lobe Expiratory Rhonchi Right Lower Lobe Clear Diminished Left Upper Lobe Expiratory Rhonchi Left Lower Lobe Clear Diminished Oxygen Delivery Method Room Air Oxygen Flow Rate (LPM) 2.5 Cough Description None Gastrointestinal Assessment Abdomen Description Soft Non-Tender Nausea/Vomiting Presence None All Four Quadrants Active Genitourinary Assessment Genitourinary Symptoms None Bladder Pattern Normal Incontinence Total Voiding Method Indwelling Catheter Urine Appearance Clear Color Dark Yellow Odor Strong Bladder Distention None Suprapubic Tenderness with Palpation No Integumentary Assessment Fingernail Condition Fungal Infection Fingernail Color Yellow Nail Bed Appearance Yellow Temperature Warm Moisture Dry Color [place] Mucous membranes moist, pink and intact No Oral Cavity Missing Teeth Musculoskeletal Assessment Musculoskeletal Symptoms Left Leg Amputee Document 04/29/16 11:00 JNG(2) (Rec: 04/29/16 12:40 JNG(2) [id number]) Pain Assessment Pain Present Reports No Pain Neurological Assessment Eye Opening Spontaneous Motor Obeys Commands Verbal Confused Coma Scale Total 14 Neurologic Status Agitation/Confusion Patient Orientation Person Arousable To Name Speech Pattern Inappropriate to situation Rambling Repetitive Confabulation Patient Behavior Anxious Fearful Mood Description Anxious Left Pupil Reaction Brisk Pupil Size (mm) 3 Pupil [place] Equal Right Pupil Reaction Brisk Pupil Size (mm) 3 Pupil [place] Equal Sensory Vision impaired Right Strength Severe Weakness All Four Limbs Strength Severe Weakness Road Gang Supervisor Strength Equal Bilat Weak Push/Pull Left Amputee Unable to assess Numbness/Tingling No Facial Symmetry Symmetrical Cardiovascular Assessment Signs and Symptoms None Heart Sounds S1 & S2 Pulse Rate 85 Rhythm Regular Pulse Assessment Method Auscultation Right Radial 2+ Left Radial 2+ Left Popliteal Amputated Right Dorsalis Pedis Doppler Left Dorsalis Pedis Amputated Right Posterior Tibialis Unable to Assess Left Posterior Tibialis Amputated Jugular Vein Distention None Capillary Refill < 3 Seconds Circulatory Tenderness Description None Mechanical Prophylaxis No Cardiac Monitoring Monitor Number [id number] Strip placed in Chart Yes History Reviewed Yes Memory Cleared Yes Alarms/Limits HR Alarm 120/50 SBP Alarm 160/90 SPO2 Alarm 100/90 Heart Rate 85 EKG Method Telemetry Rhythm Sinus Rhythm First Degree Block RI Interval 0.28 QRS Interval 0.12 QT Interval 0.47 Respiratory Assessment Respiratory Symptoms None Effort Spontaneous Non-Labored Depth Normal Respiratory Pattern Regular Chest Shape Normal Expansion Symmetrical Right Upper Lobe Expiratory Rhonchi Right Middle Lobe Expiratory Rhonchi Right Lower Lobe Expiratory Rhonchi Left Upper Lobe Expiratory Rhonchi Left Lower Lobe Expiratory Rhonchi Right Upper Lobe Expiratory Rhonchi Right Middle Lobe Expiratory Rhonchi Right Lower Lobe Clear Diminished Left Upper Lobe Expiratory Rhonchi Left Lower Lobe Clear Diminished Oxygen Delivery Method Room Air Cough Description None Gastrointestinal Assessment Abdomen Description Soft Non-Tender Nausea/Vomiting Presence None All Four Quadrants Active Genitourinary Assessment Genitourinary Symptoms None Bladder Pattern Normal Incontinence Total Voiding Method Indwelling Catheter Urine Appearance Clear Color Dark Yellow Odor Strong Bladder Distention None Suprapubic Tenderness with Palpation No Integumentary Assessment Fingernail Condition Fungal Infection Fingernail Color Yellow Nail Bed Appearance Yellow Temperature Warm Moisture Dry Color [place] Mucous membranes moist, pink and intact No Oral Cavity Missing Teeth Musculoskeletal Assessment Musculoskeletal Symptoms Left Leg Amputee Teaching Record Start: 04/19/16 23: 58 Freq: Q12H Status: Discharge Document 04/20/16 10:07 MWW (Rec: 04/20/16 10:09 MWW [id number]) Teaching Record: General Education Topics Medications Risk Factors Signs/Symptoms Response Verbalize understanding Methods Discussion Recipient Patient Education Provided: Details Educated pt. on need/risk/care /benefit of epiv. Over bed track grinder in room. Document 04/20/16 19:30 DIMPLE (Rec: 04/20/16 21:07 DIMPLE [id number]) Teaching Record: General Education Topics Medications Disease Process Hospital Environment Pertinence CHF Response Unable to comprehend Methods Discussion Recipient Patient Document 04/21/16 07:30 [id number] (Rec: 04/21/16 07:50 [id number]) Teaching Record: General Education Topics Medications Disease Process Hospital Environment Pertinence CHF Response Unable to comprehend Methods Discussion Recipient Patient Education Provided: Details Educated pt. on POC and current health status, encouraged compliance with treatment. Discussed AM medications and actions of meds. Encouraged use of call light for assistance. Document 04/22/16 08:00 LJS (Rec: 04/22/16 10:42 LJS [id number]) Teaching Record: General Education Topics Medications Disease Process Hospital Environment Pertinence CHF Response Unable to comprehend Methods Discussion Recipient Patient Document 04/22/16 20:20 JCL (Rec: 04/22/16 22:11 JCL [id number]) Teaching Record: General Education Topics Medications Disease Process Hospital Environment Pertinence CHF Response Unable to comprehend Methods Discussion Recipient Patient Education Provided: Details Attempted to educate patient on eveing medications and plan of care. Document 04/23/16 07:30 LJS (Rec: 04/23/16 09:49 LJS [id number]) Teaching Record: General Education Topics Medications Disease Process Hospital Environment Pertinence CHF Response Return demonstration Verbalize understanding Unable to comprehend Methods Discussion Recipient Patient Document 04/23/16 19:48 JCL (Rec: 04/23/16 21:11 JCL [id number]) Teaching Record: General Education Topics Medications Disease Process Hospital Environment Pertinence CHF Response Unable to comprehend Methods Discussion Recipient Patient Education Provided: Details Attempted to edcuated patietn media consultant light, hospital environment, evening medications, plan of care, and need for turning. Document 04/24/16 10:40 [id number] (Rec: 04/24/16 10:41 [id number]) Teaching Record: General Education Topics Medications Response Verbalize understanding Methods Discussion Recipient Patient Education Provided: Details medications Document 04/24/16 19:36 JCL (Rec: 04/24/16 21:43 JCL [id number]) Teaching Record: General Education Topics Medications Response Verbalize understanding Methods Discussion Recipient Patient Education Provided: Details Patietn educated on amputation , pain medication, evening medications, and plan of care. Document 04/25/16 10:35 JOYCE (Rec: 04/25/16 11:59 JOYCE [id number]) Teaching Record: General Education Topics Medications Response Verbalize understanding Methods Discussion Recipient Patient Education Provided: Details Patient educated on need to use call light, wound care, pain management Document 04/25/16 19:44 JCL (Rec: 04/25/16 21:21 JCL [id number]) Teaching Record: General Education Topics Medications Hospital Environment Exercise/Activity Relaxation Techniques Incisional Care Response Verbalize understanding Methods Discussion Recipient Patient Education Provided: Details Educated patietn on pain medication schedule, wound care, need for turning, call light, and plan of care. Document 04/26/16 10:13 JOYCE (Rec: 04/26/16 13:23 JOYCE [id number]) Teaching Record: General Education Topics Medications Hospital Environment Exercise/Activity Relaxation Techniques Incisional Care Response Unable to comprehend Methods Discussion Recipient Patient Education Provided: Details Patient in a state of confusion Document 04/26/16 19:36 JCL (Rec: 04/26/16 23:24 JCL [id number]) Teaching Record: General Education Topics Medications Hospital Environment Exercise/Activity Relaxation Techniques Incisional Care Response Unable to comprehend Methods Discussion Recipient Patient Document 04/27/16 07:45 KMS (Rec: 04/27/16 20:41 KMS [id number]) Teaching Record: General Education Topics Medications Hospital Environment Diet Exercise/Activity Response Reinforcement needed Methods Discussion Recipient Patient Document 04/28/16 08:00 JNG(2) (Rec: 04/28/16 08:58 JNG(2) [id number]) Teaching Record: General Education Topics Hospital Environment Response Unable to comprehend Methods Discussion Recipient Patient Education Provided: Details Updated on plan of care. Document 04/28/16 21:05 JKB (Rec: 04/29/16 06:15 JKB [id number]) Teaching Record: General Education Topics Relaxation Techniques Coping Skills Pertinence confusion Response Verbalize understanding Methods Discussion Recipient Patient Primary Caregiver Education Provided: Details pt. re-oriented to time and place withut effect, pt. hollars out consistently " mommy" Document 04/29/16 07:00 JNG(2) (Rec: 04/29/16 08:59 JNG(2) [id number]) Teaching Record: General Education Topics Hospital Environment Response Unable to comprehend Methods Discussion Recipient Patient Education Provided: Details Updated on plan of care. Thrombosis Risk Factor Assessment Start: 04/19/16 23: 58 Freq: .ONCE Status: Complete Document 04/19/16 23:59 JKB (Rec: 04/20/16 00:15 JKB [id number]) Thrombosis Risk Factor Assessment Each Risk Factor Represents 2 Points Age 60 - 74 years Patient confined to bed (>72 hours) Other congenital or acquired No thrombophilia - If yes, enter Type in comment Total Risk Factor Score 4 Risk Level Higher Risk Urinary catheter initiation/management Start: 04/22/16 22: 15 Freq: Q4H Status: Discharge Document 04/22/16 20:20 JCL (Rec: 04/22/16 22:16 JCL [id number]) Urinary Catheter Assessment Urethral (Hope) Date of Insertion 04/21/16 Indication catheter insertion strict urinary output measurement Catheter Present on Admission No Size (Malagasy) 16 belizean Catheter Securement Device in Place Yes Leg Bag Applied No Urine Appearance Cloudy Color Dark Yellow Odor Normal Document 04/22/16 23:42 JCL (Rec: 04/23/16 01:40 JCL [id number]) Urinary Catheter Assessment Urethral (Hope) Date of Insertion 04/21/16 Indication catheter insertion strict urinary output measurement Catheter Present on Admission No Size (Malagasy) 16 belizean Catheter Securement Device in Place Yes Leg Bag Applied No Urine Appearance Clear Color Dark Yellow Odor Normal Document 04/23/16 04:25 JCL (Rec: 04/23/16 05:00 JCL [id number]) Urinary Catheter Assessment Urethral (Hope) Date of Insertion 04/21/16 Indication catheter insertion strict urinary output measurement Catheter Present on Admission No Size (Malagasy) 16 belizean Catheter Securement Device in Place Yes Leg Bag Applied No Urine Appearance Clear Color Dark Yellow Odor Normal Document 04/23/16 07:30 LJS (Rec: 04/23/16 09:49 LJS [id number]) Urinary Catheter Assessment Urethral (Hope) Date of Insertion 04/21/16 Indication catheter insertion strict urinary output measurement Catheter Present on Admission No Size (Malagasy) 16 belizean Catheter Securement Device in Place Yes Leg Bag Applied No Urine Appearance Clear Color Dark Yellow Odor Normal Document 04/23/16 15:45 LJS (Rec: 04/23/16 15:51 LJS [id number]) Urinary Catheter Assessment Urethral (Hope) Date of Insertion 04/21/16 Indication catheter insertion strict urinary output measurement Catheter Present on Admission No Size (Malagasy) 16 belizean Catheter Securement Device in Place Yes Leg Bag Applied No Urine Appearance Clear Color Dark Yellow Odor Normal Document 04/23/16 19:48 JCL (Rec: 04/23/16 21:11 JCL [id number]) Urinary Catheter Assessment Urethral (Hope) Date of Insertion 04/21/16 Indication catheter insertion strict urinary output measurement Catheter Present on Admission No Size (Malagasy) 16 belizean Catheter Securement Device in Place Yes Leg Bag Applied No Urine Appearance Clear Color Straw Odor Normal Document 04/23/16 23:54 JCL (Rec: 04/24/16 00:49 JCL [id number]) Urinary Catheter Assessment Urethral (Hope) Date of Insertion 04/21/16 Indication catheter insertion strict urinary output measurement Catheter Present on Admission No Size (Malagasy) 16 belizean Catheter Securement Device in Place Yes Leg Bag Applied No Urine Appearance Clear Color Dark Yellow Odor Normal Document 04/24/16 03:37 JCL (Rec: 04/24/16 04:57 JCL [id number]) Urinary Catheter Assessment Urethral (Hope) Date of Insertion 04/21/16 Indication catheter insertion strict urinary output measurement Catheter Present on Admission No Size (Malagasy) 16 belizean Catheter Securement Device in Place Yes Leg Bag Applied No Urine Appearance Clear Color Dark Yellow Odor Normal Document 04/24/16 10:37 [id number] (Rec: 04/24/16 10:40 [id number]) Urinary Catheter Assessment Urethral (Hope) Date of Insertion 04/21/16 Indication catheter insertion strict urinary output measurement Catheter Present on Admission No Size (Malagasy) 16 belizean Catheter Securement Device in Place Yes Leg Bag Applied No Urine Appearance Clear Color Dark Yellow Odor Normal Document 04/24/16 15:28 RKS (Rec: 04/24/16 15:35 RKS [id number]) Urinary Catheter Assessment Urethral (Hope) Date of Insertion 04/21/16 Indication catheter insertion strict urinary output measurement Catheter Present on Admission No Size (Malagasy) 16 belizean Catheter Securement Device in Place Yes Leg Bag Applied No Urine Appearance Clear Color Dark Yellow Odor Normal Document 04/24/16 19:36 JCL (Rec: 04/24/16 21:43 JCL [id number]) Urinary Catheter Assessment Urethral (Hope) Date of Insertion 04/21/16 Indication catheter insertion strict urinary output measurement Catheter Present on Admission No Size (Malagasy) 16 belizean Catheter Securement Device in Place Yes Leg Bag Applied No Urine Appearance Clear Color Dark Yellow Odor Normal Document 04/24/16 23:57 JCL (Rec: 04/25/16 01:00 JCL [id number]) Urinary Catheter Assessment Urethral (Hope) Date of Insertion 04/21/16 Indication catheter insertion strict urinary output measurement Catheter Present on Admission No Size (Malagasy) 16 belizean Catheter Securement Device in Place Yes Leg Bag Applied No Urine Appearance Clear Color Dark Yellow Odor Normal Document 04/25/16 03:57 JCL (Rec: 04/25/16 05:42 JCL [id number]) Urinary Catheter Assessment Urethral (Hope) Date of Insertion 04/21/16 Indication catheter insertion strict urinary output measurement Catheter Present on Admission No Size (Malagasy) 16 belizean Catheter Securement Device in Place Yes Leg Bag Applied No Urine Appearance Clear Color Dark Yellow Odor Normal Document 04/25/16 10:35 JOYCE (Rec: 04/25/16 11:59 JOYCE [id number]) Urinary Catheter Assessment Urethral (Hope) Date of Insertion 04/21/16 Indication catheter insertion strict urinary output measurement Catheter Present on Admission No Size (Malagasy) 16 belizean Catheter Securement Device in Place Yes Leg Bag Applied No Document 04/25/16 12:15 JOYCE (Rec: 04/25/16 13:39 JOYCE [id number]) Urinary Catheter Assessment Urethral (Hope) Date of Insertion 04/21/16 Indication catheter insertion strict urinary output measurement Catheter Present on Admission No Size (Malagasy) 16 belizean Catheter Securement Device in Place Yes Leg Bag Applied No Document 04/25/16 15:26 KMS (Rec: 04/25/16 19:25 KMS [id number]) Urinary Catheter Assessment Urethral (Hope) Indication catheter insertion strict urinary output measurement Catheter Present on Admission No Patency Patent/Draining Leg Bag Applied No Urine Appearance Sediment Color Tea Colored Odor Strong Output, Urine Amount 25 Document 04/25/16 16:35 JOYCE (Rec: 04/25/16 18:16 JOYCE [id number]) Urinary Catheter Assessment Urethral (Hope) Catheter Present on Admission No Document 04/25/16 19:44 JCL (Rec: 04/25/16 21:21 JCL [id number]) Urinary Catheter Assessment Urethral (Hope) Indication catheter insertion strict urinary output measurement Catheter Present on Admission No Size (Malagasy) 16 belizean Patency Patent/Draining Catheter Securement Device in Place Yes Leg Bag Applied No Urine Appearance Cloudy Color Dark Yellow Odor Normal Document 04/25/16 23:45 JCL (Rec: 04/26/16 00:28 JCL [id number]) Urinary Catheter Assessment Urethral (Hope) Indication catheter insertion strict urinary output measurement Catheter Present on Admission No Size (Malagasy) 16 belizean Patency Patent/Draining Catheter Securement Device in Place Yes Leg Bag Applied No Urine Appearance Clear Color Dark Yellow Odor Normal Document 04/26/16 03:47 JCL (Rec: 04/26/16 05:02 JCL [id number]) Urinary Catheter Assessment Urethral (Hope) Indication catheter insertion strict urinary output measurement Catheter Present on Admission No Size (Malagasy) 16 belizean Patency Patent/Draining Catheter Securement Device in Place Yes Leg Bag Applied No Urine Appearance Clear Color Dark Yellow Odor Normal Document 04/26/16 07:00 JOYCE (Rec: 04/26/16 13:23 JOYCE [id number]) Urinary Catheter Assessment Urethral (Hope) Indication catheter insertion strict urinary output measurement Catheter Present on Admission No Size (Malagasy) 16 belizean Patency Patent/Draining Catheter Securement Device in Place Yes Leg Bag Applied No Urine Appearance Clear Color Dark Yellow Odor Normal Output, Urine Amount 20 Document 04/26/16 09:00 JOYCE (Rec: 04/26/16 13:23 JOYCE [id number]) Urinary Catheter Assessment Urethral (Hope) Catheter Present on Admission Yes Document 04/26/16 12:10 JOYCE (Rec: 04/26/16 13:31 JOYCE [id number]) Urinary Catheter Assessment Urethral (Hope) Catheter Present on Admission Yes Output, Urine Amount 0 Document 04/26/16 16:20 JOYCE (Rec: 04/26/16 18:29 JOYCE [id number]) Urinary Catheter Assessment Urethral (Hope) Catheter Present on Admission Yes Output, Urine Amount 0 Document 04/26/16 19:36 JCL (Rec: 04/26/16 23:24 JCL [id number]) Urinary Catheter Assessment Urethral (Hope) Indication catheter insertion strict urinary output measurement Catheter Present on Admission No Size (Malagasy) 16 belizean Patency Patent/Draining Catheter Securement Device in Place Yes Leg Bag Applied No Urine Appearance Clear Color Dark Yellow Document 04/26/16 23:44 JCL (Rec: 04/27/16 01:46 JCL [id number]) Urinary Catheter Assessment Urethral (Hope) Indication catheter insertion strict urinary output measurement Catheter Present on Admission No Size (Malagasy) 16 [place] Patency Patent/Draining Catheter Securement Device in Place Yes Leg Bag Applied No Urine Appearance Clear Color Dark Yellow Document 04/27/16 04:16 JCL (Rec: 04/27/16 05:32 JCL [id number]) Urinary Catheter Assessment Urethral (Hope) Indication catheter insertion strict urinary output measurement Catheter Present on Admission No Size (Malagasy) 16 [place] Patency Patent/Draining Catheter Securement Device in Place Yes Leg Bag Applied No Urine Appearance Clear Color Dark Yellow Document 04/27/16 07:45 KMS (Rec: 04/27/16 20:41 KMS [id number]) Urinary Catheter Assessment Urethral (Hope) Indication catheter insertion strict urinary output measurement Catheter Present on Admission No Size (Malagasy) 16 [place] Patency Patent/Draining Catheter Securement Device in Place Yes Leg Bag Applied No Urine Appearance Clear Color Light Renee Odor Strong Document 04/27/16 12:08 KMS (Rec: 04/27/16 20:46 KMS [id number]) Urinary Catheter Assessment Urethral (Hope) Indication catheter insertion strict urinary output measurement Catheter Present on Admission No Size (Malagasy) 16 [place] Patency Patent/Draining Catheter Securement Device in Place Yes Leg Bag Applied No Urine Appearance Clear Color Light Renee Odor Strong Output, Urine Amount 110 Document 04/27/16 17:00 KMS (Rec: 04/27/16 21:00 KMS [id number]) Urinary Catheter Assessment Urethral (Hope) Indication catheter insertion strict urinary output measurement Catheter Present on Admission No Size (Malagasy) 16 [place] Patency Patent/Draining Catheter Securement Device in Place Yes Leg Bag Applied No Urine Appearance Clear Color Light Renee Document 04/27/16 19:45 JKB (Rec: 04/27/16 21:14 JKB [id number]) Urinary Catheter Assessment Urethral (Hope) Indication catheter insertion strict urinary output measurement Catheter Present on Admission No Size (Malagasy) 16 [place] Patency Patent/Draining Catheter Securement Device in Place Yes Leg Bag Applied No Urine Appearance Clear Color Light Renee Odor Strong Document 04/28/16 00:10 JKB (Rec: 04/28/16 02:31 JKB [id number]) Urinary Catheter Assessment Urethral (Hope) Indication catheter insertion strict urinary output measurement Catheter Present on Admission No Size (Malagasy) 16 [place] Patency Patent/Draining Catheter Securement Device in Place Yes Leg Bag Applied No Urine Appearance Clear Color Light Renee Odor Strong Document 04/28/16 04:10 JKB (Rec: 04/28/16 08:04 JKB [id number]) Urinary Catheter Assessment Urethral (Hope) Indication catheter insertion strict urinary output measurement Catheter Present on Admission No Size (Malagasy) 16 [place] Patency Patent/Draining Catheter Securement Device in Place Yes Leg Bag Applied No Urine Appearance Clear Color Light Renee Odor Strong Document 04/28/16 08:00 JNG(2) (Rec: 04/28/16 08:58 JNG(2) [id number]) Urinary Catheter Assessment Urethral (Hope) Indication catheter insertion strict urinary output measurement Catheter Present on Admission No Size (Malagasy) 16 [place] Patency Patent/Draining Catheter Securement Device in Place Yes Leg Bag Applied No Urine Appearance Clear Color Light Renee Odor Strong Document 04/28/16 12:00 JNG(2) (Rec: 04/28/16 12:06 JNG(2) [id number]) Urinary Catheter Assessment Urethral (Hope) Indication catheter insertion strict urinary output measurement Catheter Present on Admission No Size (Malagasy) 16 [place] Patency Patent/Draining Catheter Securement Device in Place Yes Leg Bag Applied No Urine Appearance Clear Color Light Renee Odor Strong Document 04/28/16 15:53 JNG(2) (Rec: 04/28/16 15:57 JNG(2) [id number]) Urinary Catheter Assessment Urethral (Hope) Indication catheter insertion strict urinary output measurement Catheter Present on Admission No Size (Malagasy) 16 [place] Patency Patent/Draining Catheter Securement Device in Place Yes Leg Bag Applied No Urine Appearance Clear Color Light Renee Odor Strong Document 04/28/16 19:57 JKB (Rec: 04/28/16 20:22 JKB [id number]) Urinary Catheter Assessment Urethral (Hope) Indication catheter insertion strict urinary output measurement Catheter Present on Admission No Size (Malagasy) 16 [place] Patency Patent/Draining Catheter Securement Device in Place Yes Leg Bag Applied No Urine Appearance Clear Color Dark Renee Odor Strong Document 04/29/16 00:40 JKB (Rec: 04/29/16 02:26 JKB [id number]) Urinary Catheter Assessment Urethral (Hope) Indication catheter insertion strict urinary output measurement Catheter Present on Admission No Size (Malagasy) 16 [place] Patency Patent/Draining Catheter Securement Device in Place Yes Leg Bag Applied No Urine Appearance Clear Color Tea Colored Odor Strong Document 04/29/16 03:20 JKB (Rec: 04/29/16 06:36 JKB [id number]) Urinary Catheter Assessment Urethral (Hope) Indication catheter insertion strict urinary output measurement Catheter Present on Admission No Size (Malagasy) 16 [place] Patency Patent/Draining Catheter Securement Device in Place Yes Leg Bag Applied No Urine Appearance Clear Color Tea Colored Odor Strong Document 04/29/16 07:00 JNG(2) (Rec: 04/29/16 08:59 JNG(2) [id number]) Urinary Catheter Assessment Urethral (Hope) Indication catheter insertion strict urinary output measurement Catheter Present on Admission No Size (Malagasy) 16 [place] Patency Patent/Draining Catheter Securement Device in Place Yes Leg Bag Applied No Urine Appearance Clear Color Tea Colored Odor Strong Document 04/29/16 11:00 JNG(2) (Rec: 04/29/16 12:40 JNG(2) [id number]) Urinary Catheter Assessment Urethral (Hope) Indication catheter insertion strict urinary output measurement Catheter Present on Admission No Size (Malagasy) 16 [place] Patency Patent/Draining Catheter Securement Device in Place Yes Leg Bag Applied No Urine Appearance Clear Color Tea Colored Odor Strong Vital Signs Assessment Start: 04/19/16 23: 58 Freq: Q4H Status: Complete Document 04/20/16 00:02 DKH (Rec: 04/20/16 00:03 DKH [id number]) Vital Signs with MEWS Temperature (97.6 F-99.6 F) 98.8 F Temperature Source Oral Pulse Rate 53 Respiratory Rate 16 Pulse Oximetry (95-100) 93 L Oxygen Delivery Room Air Blood Pressure 125/60 Blood Pressure Location Right Arm Source Automatic Cuff Position HOB Elevated Vital Signs Assessment Start: 04/20/16 00: 15 Freq: Q4H Status: Complete Document 04/20/16 03:49 DKH (Rec: 04/20/16 03:50 DKH [id number]) Vital Signs with MEWS Temperature (97.6 F-99.6 F) 97.8 F Temperature Source Oral Pulse Rate 77 Respiratory Rate 19 Pulse Oximetry (95-100) 100 Oxygen Delivery Nasal Cannula Oxygen Flow Rate (LPM) 2 Blood Pressure 177/69 Blood Pressure Location Right Arm Source Automatic Cuff Position HOB Elevated Wound Assessment Start: 04/19/16 23: 58 Freq: Q8H Status: Discharge Document 04/20/16 19:30 DIMPLE (Rec: 04/20/16 21:07 DIMPLE [id number]) Wound Assessment Right Heel Wound Type Unknown Etiology Wound Drainage Amount 1 None Wound Drainage Odor No Odor Wound Dressing Status Open to Air Left Heel Wound Type Pressure Injury Wound Drainage Odor No Odor Wound Dressing Status Dry & Intact Wound Dressing Type Gauze Roll/Wrap Document 04/21/16 13:00 [id number] (Rec: 04/21/16 17:45 [id number]) Wound Assessment Right Heel Wound Type Diabetic Wound Wound Bed Appearance [place]us[place] Red Eschar Granulation Wound Surrounding Tissue Appearance ( Calloused Periwound) 1 Dry Surrounding Tissue Temperature Cool Wound Drainage Amount 1 None Wound Drainage Odor No Odor Wound Dressing Status Open to Air Left Heel Wound Type Diabetic Wound Wound Bed Appearance [place] White Wound Surrounding Tissue Appearance ( Erythematous Periwound) 1 Surrounding Tissue Temperature Cool Wound Drainage Description Serosanguineous Wound Drainage Amount 1 Small Wound Drainage Odor Slight Odor Wound Dressing Status Dry & Intact Wound Dressing Type Gauze Roll/Wrap Document 04/21/16 20:00 BANNER (Rec: 04/21/16 20:16 BANNER [id number]) Wound Assessment Right Heel Wound Type Unknown Etiology Wound Bed Appearance [place]ky Red Wound Surrounding Tissue Appearance ( Calloused Periwound) 1 Dry Intact Surrounding Tissue Temperature Warm Wound Drainage Amount 1 None Wound Drainage Odor No Odor Wound Dressing Status Open to Air Left Heel Wound Type Non Healing Surgical Surrounding Tissue Temperature Cool Wound Dressing Status Dry & Intact Wound Dressing Type Foam Wound Dressing Change Date 04/21/16 Document 04/22/16 11:02 LJS (Rec: 04/22/16 11:22 LJS [id number]) Wound Assessment Right Heel Wound Type Unknown Etiology Wound Bed Appearance Beefy Red Wound Surrounding Tissue Appearance ( Calloused Periwound) 1 Macerated Surrounding Tissue Temperature Warm Wound Drainage Amount 1 Scant Wound Drainage Odor No Odor Wound Dressing Status Changed Wound Dressing Type allevyn Left Heel Wound Type Unknown Etiology Wound Bed Appearance [place] Wound Surrounding Tissue Appearance ( Calloused Periwound) 1 Dry Surrounding Tissue Temperature Warm Wound Drainage Amount 1 None Wound Drainage Odor No Odor Wound Dressing Status Changed Wound Dressing Type allevyn Document 04/22/16 20:20 JCL (Rec: 04/22/16 22:00 JCL [id number]) Wound Assessment Right Heel Wound Type Unknown Etiology Wound Drainage Amount 1 None Wound Drainage Odor No Odor Wound Dressing Status Dry & Intact Wound Dressing Type Gauze Roll/Wrap Left Heel Wound Type Unknown Etiology Wound Drainage Amount 1 None Wound Drainage Odor No Odor Wound Dressing Status Dry & Intact Wound Dressing Type Gauze Roll/Wrap Document 04/23/16 04:25 JCL (Rec: 04/23/16 05:00 JCL [id number]) Wound Assessment Right Heel Wound Type Unknown Etiology Wound Drainage Amount 1 None Wound Drainage Odor No Odor Wound Dressing Status Dry & Intact Wound Dressing Type Gauze Roll/Wrap Left Heel Wound Type Unknown Etiology Wound Drainage Odor No Odor Wound Dressing Status Dry & Intact Wound Dressing Type Gauze Roll/Wrap Drains Tube/Drain Discontinued No Document 04/23/16 07:30 LJS (Rec: 04/23/16 09:49 LJS [id number]) Wound Assessment Right Heel Wound Type Unknown Etiology Wound Bed Appearance Beefy Red Wound Surrounding Tissue Appearance ( Calloused Periwound) 1 Surrounding Tissue Temperature Warm Wound Drainage Amount 1 None Wound Drainage Odor No Odor Wound Dressing Status Changed Wound Dressing Type 4x4 adaptic, kerlex Left Heel Wound Type Unknown Etiology Wound Bed Appearance Beefy Red [place] Yellow Eschar Necrotic Tunneling Wound Surrounding Tissue Appearance ( Macerated Periwound) 1 Surrounding Tissue Temperature Warm Wound Drainage Description Cummings Wound Drainage Amount 1 Small Wound Drainage Odor No Odor Wound Dressing Status Changed Wound Dressing Type adaptic, 4x4, kerlex Patient Tolerance of Procedure Tolerated Well Document 04/23/16 20:55 JCL (Rec: 04/23/16 20:56 JCL [id number]) Wound Assessment Right Heel Wound Type Unknown Etiology Wound Drainage Amount 1 None Wound Drainage Odor No Odor Wound Dressing Status Dry & Intact Wound Dressing Type Gauze Roll/Wrap Left Heel Wound Type Unknown Etiology Wound Drainage Amount 1 None Wound Drainage Odor No Odor Wound Dressing Status Dry & Intact Wound Dressing Type Gauze Roll/Wrap Document 04/24/16 03:37 JCL (Rec: 04/24/16 04:57 JCL [id number]) Wound Assessment Right Heel Wound Type Unknown Etiology Wound Drainage Amount 1 None Wound Drainage Odor No Odor Wound Dressing Status Dry & Intact Wound Dressing Type Gauze Roll/Wrap Wound Dressing Change Date 04/23/16 Left Heel Wound Type Unknown Etiology Wound Drainage Amount 1 None Wound Drainage Odor No Odor Wound Dressing Status Dry & Intact Wound Dressing Type Gauze Roll/Wrap Wound Dressing Change Date 04/23/16 Document 04/24/16 10:41 [id number] (Rec: 04/24/16 10:43 [id number]) Wound Assessment Left Knee Wound Type Surgical Wound Surrounding Tissue Temperature Warm Wound Dressing Status Dry & Intact Wound Dressing Type kerlix Right Heel Wound Type Unknown Etiology Wound Drainage Amount 1 None Wound Drainage Odor No Odor Wound Dressing Status Dry & Intact Wound Dressing Type kerlix Document 04/24/16 15:28 RKS (Rec: 04/24/16 15:35 RKS [id number]) Wound Assessment Left Knee Wound Type Surgical Wound Surrounding Tissue Temperature Warm Wound Drainage Amount 1 None Wound Drainage Odor No Odor Wound Dressing Status Dry & Intact Wound Dressing Change Date 04/24/16 Document 04/24/16 19:36 JCL (Rec: 04/24/16 21:43 JCL [id number]) Wound Assessment Left Knee Wound Type Surgical Wound Wound Drainage Amount 1 None Wound Drainage Odor No Odor Wound Dressing Status Dry & Intact Wound Dressing Type Gauze Roll/Wrap Right Heel Wound Type Unknown Etiology Wound Drainage Amount 1 None Wound Drainage Odor No Odor Wound Dressing Status Dry & Intact Wound Dressing Type Gauze Roll/Wrap Document 04/24/16 23:57 JCL (Rec: 04/25/16 01:00 JCL [id number]) Wound Assessment Left Knee Wound Type Surgical Wound Wound Drainage Amount 1 None Wound Drainage Odor No Odor Wound Dressing Status Dry & Intact Wound Dressing Type Gauze Roll/Wrap Right Heel Wound Type Unknown Etiology Wound Drainage Amount 1 None Wound Drainage Odor No Odor Wound Dressing Status Dry & Intact Wound Dressing Type Gauze Roll/Wrap Document 04/25/16 03:57 JCL (Rec: 04/25/16 05:42 JCL [id number]) Wound Assessment Left Knee Wound Type Surgical Wound Wound Drainage Amount 1 None Wound Drainage Odor No Odor Wound Dressing Status Dry & Intact Wound Dressing Type Gauze Roll/Wrap Right Heel Wound Type Unknown Etiology Wound Drainage Amount 1 None Wound Drainage Odor No Odor Wound Dressing Status Dry & Intact Wound Dressing Type Gauze Roll/Wrap Document 04/25/16 19:44 JCL (Rec: 04/25/16 21:21 JCL [id number]) Wound Assessment Left Knee Wound Type Surgical Wound Wound Drainage Amount 1 None Wound Drainage Odor No Odor Wound Dressing Status Dry & Intact Wound Dressing Type Gauze Roll/Wrap Wound Dressing Change Date 04/25/16 Right Heel Wound Type Unknown Etiology Wound Drainage Amount 1 None Wound Drainage Odor No Odor Wound Dressing Status Dry & Intact Wound Dressing Type Gauze Roll/Wrap Document 04/25/16 23:45 JCL (Rec: 04/26/16 00:28 JCL [id number]) Wound Assessment Left Knee Wound Type Surgical Wound Wound Drainage Amount 1 None Wound Drainage Odor No Odor Wound Dressing Status Dry & Intact Wound Dressing Type Gauze Roll/Wrap Right Heel Wound Type Unknown Etiology Wound Drainage Odor No Odor Wound Dressing Status Dry & Intact Wound Dressing Type Gauze Roll/Wrap Document 04/26/16 10:00 KMS (Rec: 04/26/16 12:58 KMS [id number]) Wound Assessment Left Posterior Ankle Wound Type Pressure Injury Wound Length (cm) 1.5 Wound Width (cm) 1 Wound Depth (cm) 0 Wound Surrounding Tissue Appearance ( Calloused Periwound) 1 Intact Surrounding Tissue Temperature Warm Wound Drainage Amount 1 None Wound Dressing Status Dry & Intact Changed Wound Dressing Type Kerlex roll Wound Dressing Change Date 04/26/16 Patient Tolerance of Procedure Tolerated Well Premedicated Prior to Dressing Change Yes Pressure Injury Staging Deep Tissue Injury (DTI) Percent of Wound Bed DTI/Purple 100 Right Lateral Foot Wound Type Pressure Injury Wound Length (cm) 1.5 Wound Width (cm) 1 Wound Depth (cm) 0 Wound Surrounding Tissue Appearance ( Intact Periwound) 1 Erythematous Surrounding Tissue Temperature Warm Wound Drainage Amount 1 None Wound Dressing Status Dry & Intact Changed Wound Dressing Type Kerlex roll Wound Dressing Change Date 04/26/16 Patient Tolerance of Procedure Tolerated Well Premedicated Prior to Dressing Change Yes Pressure Injury Staging Deep Tissue Injury (DTI) Percent of Wound Bed DTI/Purple 100 Left Knee Wound Type Surgical Wound Wound Drainage Description Sanguineous Wound Drainage Amount 1 Scant Wound Drainage Odor No Odor Wound Dressing Status Changed Topical Medication Well approximated with chung Wound Dressing Type ABD with Kerlex wrap Wound Dressing Change Date 04/26/16 Patient Tolerance of Procedure Tolerated Well Premedicated Prior to Dressing Change Yes Number of Sutures 0 Number of Retention Sutures 0 Number of Chung 24 Right Heel Wound Type Unknown Etiology Wound Length (cm) 3 Wound Width (cm) 2.5 Wound Depth (cm) 0.1 Wound Bed Appearance [place] Eschar Necrotic Granulation Wound Surrounding Tissue Appearance ( Calloused Periwound) 1 Intact Erythematous Surrounding Tissue Temperature Warm Wound Drainage Description Serous Wound Drainage Amount 1 Scant Wound Drainage Odor No Odor Wound Dressing Status Changed Wound Dressing Type Mepilex with gauze and Kerlex roll Wound Dressing Change Date 04/26/16 Patient Tolerance of Procedure Tolerated Well Premedicated Prior to Dressing Change Yes Pressure Injury Staging Stage 2 Percent of Wound Bed Granulated/Red (%) 50 Percent of Wound Bed Eschar/Black (%) 45 Percent of Wound Bed Slough/Yellow (%) 5 Document 04/26/16 18:30 JOYCE (Rec: 04/26/16 18:34 JOYCE [id number]) Wound Assessment Left Posterior Ankle Wound Type Pressure Injury Surrounding Tissue Temperature Warm Wound Drainage Amount 1 None Wound Dressing Status Dry & Intact Wound Dressing Type Foam Wound Dressing Change Date 04/25/16 Patient Tolerance of Procedure Tolerated Well Pressure Injury Staging Stage 1 Right Lateral Foot Wound Type Pressure Injury Wound Surrounding Tissue Appearance ( Dry Periwound) 1 Surrounding Tissue Temperature Warm Wound Drainage Amount 1 None Wound Dressing Status Dry & Intact Pressure Injury Staging Unstageable Left Knee Wound Type Surgical Wound Wound Bed Appearance [place] Wound Surrounding Tissue Appearance ( Dry Periwound) 1 Surrounding Tissue Temperature Warm Wound Drainage Amount 1 None Wound Dressing Status Dry & Intact Wound Dressing Type Absorbant Pad Right Heel Wound Type Pressure Injury Wound Bed Appearance [place] Wound Surrounding Tissue Appearance ( Dry Periwound) 1 Surrounding Tissue Temperature Warm Wound Drainage Amount 1 None Wound Dressing Status Dry & Intact Pressure Injury Staging Stage 1 Document 04/26/16 19:36 JCL (Rec: 04/26/16 23:24 JCL [id number]) Wound Assessment Left Posterior Ankle Wound Type Unknown Etiology Wound Drainage Amount 1 None Wound Drainage Odor No Odor Wound Dressing Status Dry & Intact Wound Dressing Type Gauze Roll/Wrap Right Lateral Foot Wound Type Unknown Etiology Wound Drainage Amount 1 None Wound Drainage Odor No Odor Wound Dressing Status Dry & Intact Wound Dressing Type Gauze Roll/Wrap Left Knee Wound Type Surgical Wound Wound Drainage Amount 1 None Wound Drainage Odor No Odor Wound Dressing Status Dry & Intact Wound Dressing Type Gauze Roll/Wrap Right Heel Wound Type Unknown Etiology Wound Drainage Amount 1 None Wound Drainage Odor No Odor Wound Dressing Status Dry & Intact Wound Dressing Type Gauze Roll/Wrap Document 04/27/16 07:45 KMS (Rec: 04/27/16 20:41 KMS [id number]) Wound Assessment Left Posterior Ankle Wound Type Pressure Injury Wound Drainage Amount 1 None Wound Dressing Status Dry & Intact Wound Dressing Type Gauze Roll/Wrap Wound Dressing Change Date 04/26/16 Right Lateral Foot Wound Type Pressure Injury Wound Drainage Amount 1 None Wound Dressing Status Dry & Intact Wound Dressing Type Gauze Roll/Wrap Wound Dressing Change Date 04/26/16 Left Knee Wound Type Surgical Wound Wound Drainage Amount 1 None Wound Dressing Status Dry & Intact Wound Dressing Type Gauze Roll/Wrap Wound Dressing Change Date 04/26/16 Right Heel Wound Type Pressure Injury Wound Drainage Amount 1 None Wound Dressing Status Dry & Intact Wound Dressing Type Gauze Roll/Wrap Wound Dressing Change Date 04/26/16 Document 04/27/16 17:00 KMS (Rec: 04/27/16 21:00 KMS [id number]) Wound Assessment Left Posterior Ankle Wound Drainage Amount 1 None Wound Dressing Status Dry & Intact Wound Dressing Change Date 04/26/16 Right Lateral Foot Wound Type Pressure Injury Wound Drainage Amount 1 None Wound Dressing Status Dry & Intact Wound Dressing Change Date 04/26/16 Left Knee Wound Type Surgical Wound Wound Drainage Amount 1 None Wound Dressing Status Dry & Intact Wound Dressing Change Date 04/26/16 Right Heel Wound Type Pressure Injury Wound Drainage Amount 1 None Wound Dressing Status Dry & Intact Wound Dressing Change Date 04/26/16 Document 04/28/16 08:00 JNG(2) (Rec: 04/28/16 09:01 JNG(2) [id number]) Wound Assessment Right Lateral Foot Wound Type Pressure Injury Surrounding Tissue Temperature Warm Wound Drainage Amount 1 None Wound Drainage Odor No Odor Wound Dressing Status Dry & Intact Left Knee Wound Type Surgical Wound Wound Surrounding Tissue Appearance ( Dry Periwound) 1 Surrounding Tissue Temperature Warm Wound Drainage Amount 1 None Wound Drainage Odor No Odor Wound Dressing Status Dry & Intact Right Heel Wound Type Pressure Injury Wound Surrounding Tissue Appearance ( Dry Periwound) 1 Surrounding Tissue Temperature Warm Wound Drainage Amount 1 None Wound Drainage Odor No Odor Wound Dressing Status Dry & Intact 04/28/16 09:01 Nurse Note by Kiesha Atkins Patient to dialysis this morning. On 2A monitor and Genie in tele room notified. Initialized on 04/28/16 09:01 - END OF NOTE Document 04/28/16 21:20 JKB (Rec: 04/29/16 06:18 JKB [id number]) Wound Assessment Right Lateral Foot Wound Type Diabetic Wound Surrounding Tissue Temperature Warm Wound Drainage Amount 1 None Wound Dressing Status Dry & Intact Wound Dressing Type Gauze Roll/Wrap Left Knee Wound Type Surgical Wound Wound Surrounding Tissue Appearance ( Dry Periwound) 1 Wound Dressing Status Dry & Intact Wound Dressing Type Gauze Roll/Wrap Right Heel Wound Type Diabetic Wound Wound Dressing Status Dry & Intact Wound Dressing Type Gauze Roll/Wrap Wound Care Start: 04/22/16 17: 17 Freq: daily Status: Discharge Document 04/23/16 07:30 LJS (Rec: 04/23/16 09:49 LJS [id number]) Document 04/25/16 10:35 JOYCE (Rec: 04/25/16 11:59 JOYCE [id number]) Document 04/26/16 10:00 KMS (Rec: 04/26/16 12:58 KMS [id number]) Document 04/28/16 22:01 JNV (Rec: 04/28/16 22:02 JNV [id number]) Discharge Information Inpatient Discharge Date/Time: 04/29/16 18:40 Inpatient Discharge Disposition: Hospice - Medical Facility Inpatient Discharge Comment: Observation Discharge Date/Time: Observation Discharge Disposition: Observation Discharge Comment: Instructions: Peripheral Vascular Disorders (DC) Stand-Alone Forms: Prescriptions: LORazepam [Ativan] Dakotah,Cecy LORazepam [Lorazepam] Dakotah,Cecy OxyCODONE Oral Soln [OxyCODONE ORAL SOLN] Dakotah,Cecy Visit Report - Forms: - Referrals: Sepideh Gallo MD (Primary Care Provider) Chapo Escobar CNP (Advanced Practice Nurse) - 05/12/16 3: 00 pm Magnolia Garcia CNP (Advanced Practice Nurse) - 10:15 am - Additional text: Cleanse incision with soap and water and pat dry daily Non-weight bearing to Left surgical incision PT/OT daily Radiology Results Head CT 04/20/16 03:48 IMPRESSION: No acute intracranial abnormality. D/ / Mike Fox MD / Mike Fox MD Interpreting Provider: Mike Fox MD Foot X-Ray 04/21/16 17:00 IMPRESSION: Diffuse osteopenia. No definite evidence of acute fracture or dislocation of the left foot. Chronic changes as described above. Soft tissue swelling of the left foot. Question of soft tissue defects of the left heel. No definite evidence of adjacent bony erosion to suggest acute osteomyelitis. MRI can better detect subtle acute osteomyelitis. D/ / Ander Washington MD / Ander Washington MD Interpreting Provider: Ander Washington MD Guidance Needle Placement Ultrasound 04/27/16 00:00 IMPRESSION: Successful ultrasound guided right jugular temporary dialysis catheter placement. D/ / 04/27/2016 14:29:41 Lianet Ball MD / Lala Douglas Interpreting Provider: Lianet Ball MD Insertion Non-Tunneled Catheter 04/27/16 00:00 IMPRESSION: Successful ultrasound guided right jugular temporary dialysis catheter placement. D/ / 04/27/2016 14:29:41 Lianet Ball MD / Lala Douglas Interpreting Provider: Lianet Ball MD Chest X-Ray 04/29/16 08:24 IMPRESSION: Cardiomegaly without acute cardiopulmonary process identified. D/ / Drew Hewitt MD / Drew Hewitt MD Interpreting Provider: Drew Hewitt MD
[2016-04-20] MEDS ORDERED: Vancomycin 1,250 MG in D5% in Water 250 ML IVPB SCH (05:00)
[2016-04-20] MEDS ORDERED: Vancomycin 1,250 MG in D5% in Water 250 ML IVPB ONE ×2 (05:30→18:47)
[2016-04-20] MEDS: Lactobacillus 1 EACH CAP.SPRINK PO SCH ×2 (07:30→21:57)
[2016-04-20] MEDS: amLODIPine 5 MG TABLET PO SCH (07:30)
[2016-04-20] MEDS: Isosorbide MONOnitrate (24 HR) 60 MG TAB.ER.24H PO SCH (07:30)
[2016-04-20] MEDS: Aspirin 81 MG TAB.CHEW PO SCH (07:30)
[2016-04-20] MEDS: Insulin LISPRO 300 UNITS/3 ML VIAL SQ SCH ×4 (07:30→20:55)
[2016-04-20] MEDS: Ketorolac 30 MG/ML VIAL IVP PRN (07:35)
[2016-04-20] MEDS: *HR* LORazepam 0.5 MG TABLET PO PRN ×2 (07:37→19:46)
[2016-04-20] MEDS ORDERED: Lidocaine -MPF 1% 5 ML AMPUL INFILT ONE (08:48)
[2016-04-20] MEDS ORDERED: Insulin NPH/REG 70/30 300 UNIT/3 ML VIAL SQ SCH ×2 (09:00→21:00)
[2016-04-20] MEDS ORDERED: *HR* Digoxin 0.25 MG TABLET PO SCH (09:00)
[2016-04-20] MEDS ORDERED: Ertapenem 1,000 MG in 0.9 % Sodium Chloride Mini Bag 100 ML IVPB SCH (09:00)
[2016-04-20 10:11] LABS: VBG HCO3 35.8 mEq/L (21-27); VBG PH 7.43 pH Units (7.32-7.42)
[2016-04-20 10:42] LABS: Fibrinogen 537 mg/dL (169-393)
[2016-04-20 10:44] LABS: D-Dimer 723 ng/mLFEU (0-500)
[2016-04-20 10:49] LABS: Thyroid Stimulating Hormone 1.594 mcIU/mL (0.350-4.840); Triiodothyronine (T3) Free 1.38 pg/mL (1.71-3.71)
[2016-04-20] MEDS: Pantoprazole 40 MG VIAL IVP SCH (11:05)
[2016-04-20] MEDS: Nystatin POWDER 30 GM BOTTLE TP SCH ×2 (11:05→21:56)
--- NOTE | 2016-04-20 11:54 | Cardiology Consult Note ---
Date of Encounter: 04/20/16 Time of Encounter: 11:51 Assessment and Plan (1) Non-STEMI (non-ST elevated myocardial infarction) Current Visit: Yes Status: Acute Troponins 2.25, 2.24, 1.20 in setting of Stage 4 CKD. Pt denies chest pain. LHC 04/21/10 Severe three vessel coronary artery disease. Medical management recommended at that time. Discussed with pt options of tx including LHC vs. medical management. R/B/A to both options discussed. Pt prefers medical management. Anticoagulated on Coumadin with therapeutic INR 2.7. Stop heparin gtt. Okay to resume Coumadin since she wants medical management and declines LHC. ASA, Statin, BB, nitrates. Check echo to evaluate structure and function. Echo 04/2010 EF 55-60%, was 45-50 % on LHC in 2010. Will continue to follow. (2) CAD (coronary artery disease) Current Visit: Yes Status: Chronic LHC 04/21/10 Severe three vessel coronary artery disease. Mild left main coronary artery disease. 15% stenosis in the left main coronary artery. 60% stenosis in the mid LAD. 60 to 70% stenosis in the proximal to mid LCx. Occluded proximal RCA. Good quality collateral vessels from the first obtuse marginal artery to the distal first right posterolateral artery were present. Fair quality collateral vessels from the third septal human resources hr generalist to the mid first posterior descending septal human resources hr generalist artery were present. The overall left ventricular systolic function was mildly reduced. The left ventricular ejection fraction was 45-50%. Recommendation: Optimal medical therapy of the patient's disease, including aspirin, beta blockers, karla inhibitors, Plavix and statin therapy. Consider PCI of Mid LAD if angina is refractory to medical Rx. Pt denies any chest pain in setting of NSTEMI, prefers medical management over LHC. ASA, Statin, BB, Nitrates. Qualifiers: Coronary Disease-Associated Artery/Lesion type: [place] artery [place] vs. transplanted heart: [place] heart Associated angina: without angina Qualified Code(s): I25.10 - Atherosclerotic heart disease of [place] coronary artery without angina pectoris (3) Paroxysmal a-fib Current Visit: Yes Status: Acute PAF noted, unsure of when diagnosed. EKG 03/2016 showed A-Fib. SR on admission here, but PAF noted on tele. On Coumadin for DVT hx, INR therapeutic 2.7. On BB and Digoxin. Stage 4 CKD and rate controlled when in A-Fib, so recommend stopping Digoxin. Continue BB. K 3.9, Mag 1.5--replaced. TSH 1.594, Free T3 1.38. (4) CKD (chronic kidney disease) stage 4, GFR 15-29 ml/min Current Visit: Yes Status: Chronic Management per primary team. Discussion w patient/family: The assessment and plan as outlined above was discussed with the patient and/or family members who expressed understanding and agreement. All questions were answered. Thank you for involving us in the care of your patient. Please call with any questions. I will discuss all the above with Dr. Ti Goodman and make changes as necessary. History of Present Illness Consult date: 04/20/16 Requesting physician: Brian Davis Consult reason: NSTEMI Chief complaint: mental status changes History of present illness: Ms. Olivia is a 75 year old female [facility] with PMH of hypertension, dyslipidemia, GERD, CKD IV, type II DM, DM nephropathy with proteinuria, h/o LLE DVT (chr warfarin tx), A-Fib noted on prior EKG, DM foot infection/ ulceration, CAD/AMIx2, PAD/L-CEA/LLE fem art stent, osteoarthritis, osteoporosis , morbid obesity/deconditioning, former smoker that was transferred from snf for acute mental status changes. Found to have elevated troponins of 2.25, 2.24, 1.20. BNP 2623. CXR small bilateral pleural effusions and mild pulmonary vascular congestion. Creatinine 2.24. She denies any chest pain. She is unsure is breathing is any worse than baseline. She does report worsening lower extremity edema over the past week. Most recent [facility] 2010 with severe 3 vessel CAD--medical management recommended. Echo 2011 EF 55-60%. Past Med Surg Social Fam HX - Past Medical History Medical history: arthritis (Cervical spine osteomyelitis 2011. Chronic low back pain. Amputation left great toe. Left lateral foot diabetic ulcer.), asthma, atrial fibrillation, cardiomyopathy (LVEF A-35% 2011 echo. Mild MR. Grade 1 diastolic dysfunction.), CHF, COPD, coronary artery disease (Heart catheterization 2011 demonstrated mild LMCA disease 15% stenosis LAD 60% stenosis in midportion 60-70% stenosis and proximal to mid left circumflex. Proximal RCA occluded. Collaterals from first obtuse marginal to the distal right posterolateral artery. LVEF 45-50%.), DVT (Left leg DVT. Chronic Coumadin therapy.), diabetes (Right eye blindness.), GERD, GI bleed ( hemorrhoids.), hyperlipidemia, hypertension, myocardial infarction (x2), osteoporosis, peripheral artery disease (Left carotid artery endarterectomy. Left leg femoral artery stent.), renal disease, thyroid disease, venous stasis, other (Psoriatic arthritis. Psoriasis. Diabetic peripheral neuropathy.) Psychiatric history: anxiety, depression - Past Surgical History Surgical History: carotid endarterectomy, cataract (Bilateral cataracts.), cholecystectomy, orthopedic, other, other (Left great toe amputation 2009.), vascular surgery, LE stent (s) - Social History Smoking Status: Former smoker Packs per day: 1ppd x44yrs Smokeless Tobacco Status: No Alcohol use: none Drug use: none - Family History Son Adopted: [place]: MELBA Age: 32 Family Member Ethnicity: Non- Living Status: Age at : 32 Cause of : CHF Hx Family Cardiac Disorders: Yes Hx Family Respiratory Disorders: No Hx Family Cancer: Yes (MOTHER, GRANDDAUGHTERS X 2) Hx Family GI Disorders: No Hx Family Genitourinary Disorders: Yes Hx Family Endocrine Disorder: Yes Hx Family Musculoskeletal Disorders: No Hx Family Neuromuscular Disorders: No Hx Family Neurologic Disorders: No Hx Family HEENT Disorders: No Hx Family Autoimmune Disorders: Yes Hx Family Reproductive Disorders: No Hx Family Psychosocial Disorders: Yes Hx Family Medical Disorders: Yes Mother Family Member Ethnicity: Non- Living Status: Hx Family Cardiac Disorders: No Hx Family Respiratory Disorders: No Hx Family Cancer: Yes Hx Family GI Disorders: No Hx Family Endocrine Disorder: No Hx Family Neuromuscular Disorders: No Hx Family Neurologic Disorders: No Hx Family HEENT Disorders: No Hx Family Autoimmune Disorders: No Medications and Allergies Furosemide [Lasix] 40 mg PO BID 06/25/15 [History] Metoprolol Tartrate [Lopressor] 50 mg PO BID 06/25/15 [History] Multivit-Min/FA/Lycopen/Lutein [A Thru Z Select Multivit Tab] 1 tab PO DAILY [History] Omeprazole [PriLOSEC] 20 mg PO DAILY 06/25/15 [History] Paricalcitol [Zemplar] 1 mcg PO DAILY 06/25/15 [History] Amlodipine [Norvasc] 5 mg PO DAILY 03/09/16 [History] Gabapentin [Neurontin] 100 mg PO HS 03/09/16 [History] Insulin NPH Hum/Reg Insulin Hm [Humulin 70/30 Kwikpen] 28 unit SQ HS 03/09/16 [ History] Insulin NPH Hum/Reg Insulin Hm [Humulin 70/30 Kwikpen] 30 unit SQ QAM 03/09/16 [ History] Levothyroxine Sodium [Levoxyl] 200 mcg PO DAILY 03/09/16 [History] Lisinopril [Zestril] 20 mg PO DAILY 03/09/16 [History] Nystatin POWDER [Nystop] 1 appl TP BID 03/09/16 [History] Warfarin [Coumadin] 1.5 mg PO QPM 03/09/16 [History] LORazepam [Lorazepam] 0.5 mg PO BID PRN 03/30/16 [History] Mirtazapine [Remeron] 15 mg PO HS 03/30/16 [History] Nitroglycerin [Nitrostat] 0.4 mg SL QDPC PRN 03/30/16 [History] Tramadol HCl [Ultram] 50 mg PO QID PRN 03/30/16 [History] HYDROcodone/Acet 5/325 mg [[place] 5-325 mg] 1 tab PO Q8H PRN 04/01/16 [History] Meclizine HCl [Verticalm] 25 mg PO TID PRN 04/01/16 [History] Digoxin [Lanoxin] 0.125 mg PO DAILY #30 tablet 04/02/16 [Rx] Isosorbide MONOnitrate (24 HR) [Imdur] 60 mg PO DAILY #30 tab.er.24h 04/02/16 [ Rx] Allergies codeine Allergy (Verified 03/02/16 10:31) Hives Penicillins [PCN] Allergy (Verified 03/02/16 10:31) Hives All Systems Review: A 10-system review of systems was performed and is negative for pertinent findings except as documented above in the HPI. - Cardiovascular Cardiovascular: dyspnea on exertion, leg edema Physical Examination Vital Signs Temp Pulse Resp BP Pulse Ox 04/20/16 07:30 98.2 F 79 18 166/55 100 04/20/16 06:53 98.2 F 79 18 166/55 100 04/20/16 03:49 97.8 F 77 19 177/69 100 04/20/16 00:02 98.8 F 53 16 125/60 93 L 04/19/16 23:58 97 Intake and Output 04/19/16 04/20/16 04/20/16 23:59 07:59 15:59 Intake Total 330 / 330 Balance 330 / 330 Intake: IV Fluids 330 / 330 0.9 % Sodium Chloride 1, 250 / 250 000 ML @ 50 mls/hr IVC . Q20H ENE Rx#:[id number] Heparin 25,000 UNIT/500 80 / 80 ML D5W 25,000 unit In 500 ml @ 11.6 UNIT/KG/HR 19. 889 mls/hr IVC .Q24H ENE Rx#:[id number] Oral 0 / 0 Other: Stool Size Smear Stool Consistency soft Stool Characteristics Normal for Patient Stool Color Brown Weight 85.729 kg Blood Glucose* 148 Patient Weight 04/20/16 23:59 Weight 85.729 kg General: Conversant, No Apparent Distress HEENT: Atraumatic, Normocephaly, Mucus Membranes Moist Neck: Normal carotid pulses Cardiac: Other (irregularly irregular) Lungs: Other (diminished) Neuro: Alert and responsive, Other (confused at times) Abdomen: Soft, Non-Tender Skin: No rashes noted on visualized skin Musculoskeletal: No Chest Wall Tenderness Extremities: Other (vascular disease evident) Results 04/20/16 01:31 04/20/16 01:31 Lab Results 04/20/16 04/20/16 04/20/16 01:31 01:31 01:31 WBC 8.0 Hgb 10.3 L Hct 35.4 Plt Count 137 L INR 2.7 APTT TNP D-Dimer Sodium Potassium Chloride Carbon Dioxide BUN Creatinine Glucose Calcium Magnesium Total Bilirubin AST ALT Alkaline Phosphatase Troponin I 2.24 H* B-Natriuretic Peptide TSH 04/20/16 04/20/16 04/20/16 01:31 01:31 02:34 WBC Hgb Hct Plt Count INR APTT 245.2 H* D D-Dimer Sodium 143 Potassium 3.9 Chloride 103 Carbon Dioxide 32 H BUN 27 H Creatinine 2.24 H Glucose 95 Calcium 8.9 Magnesium 1.5 L Total Bilirubin 0.7 AST 23 ALT 12 Alkaline Phosphatase 101 Troponin I B-Natriuretic Peptide 2623 H TSH 2.463 04/20/16 04/20/16 04/20/16 09:50 09:50 09:50 WBC Hgb Hct Plt Count INR APTT D-Dimer 723 H Sodium Potassium Chloride Carbon Dioxide BUN Creatinine Glucose Calcium Magnesium Total Bilirubin AST ALT Alkaline Phosphatase Troponin I 1.20 H* B-Natriuretic Peptide TSH 1.594 Short CBC 04/20/16 Range/Units 01:31 WBC 8.0 (4.3-11.1) K/mcL Hgb 10.3 L (11.5-15.4) g/dL Hct 35.4 (35.3-44.9) % Plt Count 137 L (140-400) K/mcL Neutrophils # 6.8 (1.6-8.9) K/mcL BMP 04/20/16 Range/Units 01:31 Sodium 143 (136-145) mEq/L Potassium 3.9 (3.5-4.5) mEq/L Chloride 103 (98-109) mEq/L Carbon Dioxide 32 H (19-29) mEq/L BUN 27 H (7-20) mg/dL Creatinine 2.24 H (0.57-1.11) mg/dL Glucose 95 (70-99) mg/dL Calcium 8.9 (8.6-10.8) mg/dL Cardiac Enzymes 04/20/16 04/20/16 Range/Units 09:50 01:31 Troponin I 1.20 H* 2.24 H* (0-0.03) ng/mL Liver Function 04/20/16 Range/Units 01:31 Total Bilirubin 0.7 (0.2-1.2) mg/dL AST 23 (5-34) Units/L ALT 12 (0-55) Units/L Alkaline Phosphatase 101 (38-126) Units/L Albumin 2.1 L (3.5-5.0) g/dL Impressions Head CT 04/20/16 03:48 IMPRESSION: No acute intracranial abnormality. D/ / Mike Fox MD / Mike Fox MD Interpreting Provider: Mike Fox MD Active Medications Acetaminophen (Tylenol) 650 mg PO Q6HR PRN PRN Reason: Mild Pain (1-3) Stop: 10/20/16 00:16 Amlodipine Besylate (Norvasc) 5 mg PO DAILY ENE PRN Reason: Protocol Stop: 10/20/16 09:01 Aspirin (Aspirin) 81 mg PO DAILY ENE Stop: 10/20/16 09:01 Dextrose/Water (Dextrose 50% (Syg)) 25 ml IVP AD PRN PRN Reason: Hypoglycemia Stop: 10/20/16 04:17 Digoxin (Lanoxin) 0.125 mg PO DAILY [facility] Stop: 10/20/16 09:01 Docusate Sodium (Colace) 100 mg PO BID PRN PRN Reason: Constipation Stop: 10/20/16 00:16 Glucagon (Glucagen) 1 mg IM ONCE PRN PRN Reason: Hypoglycemia Stop: 10/20/16 04:17 Glucose (Gluctose) 15 gm PO ONCE PRN PRN Reason: Hypoglycemia Stop: 10/20/16 04:17 Glucose (Gluctose) 30 gm PO ONCE PRN PRN Reason: Hypoglycemia Stop: 10/20/16 04:17 Heparin Sodium (Porcine) (Heparin) 4,000 unit IVP Q6HR PRN PRN Reason: SEE COMMENTS Stop: 10/20/16 00:27 Heparin Sodium (Porcine) (Heparin) 2,000 unit IVP Q6H PRN PRN Reason: SEE COMMENTS Stop: 10/20/16 00:27 Heparin Sodium/Dextrose (Heparin 25,000 Unit/500 Ml D5w) 25,000 unit in 500 mls @ 19.889 mls/hr IVC .Q24H ENE; 11.6 UNIT/KG/HR PRN Reason: Protocol Stop: 10/20/16 00:31 Last Titration: 04/20/16 05:27 Dose: 9.91 unit/kg/hr, 17 mls/hr Dextrose (Dextrose 5%) 1,000 mls @ 100 mls/hr IV CONT PRN PRN Reason: HYPOGLYCEMIA Stop: 10/20/16 04:17 Sodium Chloride (0.9 % Sodium Chloride) 1,000 mls @ 125 mls/hr IVC .Q8H ENE Stop: 10/20/16 04:19 Last Admin: 04/20/16 05:57 Dose: 125 mls/hr Ertapenem 500 mg/ Sodium (Chloride) 100 mls @ 100 mls/hr IVPB DAILY [facility] Stop: 10/20/16 10:18 Insulin Human Lispro (Humalog) 0 units SQ Q6HR ENE PRN Reason: Protocol Stop: 10/20/16 06:01 Last Admin: 04/20/16 07:30 Dose: Not Given Isosorbide Mononitrate (Imdur) 60 mg PO DAILY [facility] Stop: 10/20/16 09:01 Ketorolac Tromethamine (Toradol) 30 mg IVP Q6HR PRN PRN Reason: Moderate Pain (4-6) Stop: 04/25/16 00:16 Last Admin: 04/20/16 07:35 Dose: 30 mg Lactobacillus Acidophilus/Rhamnosus (Culturelle) 1 each PO BID [facility] Stop: 10/20/16 09:01 Levothyroxine Sodium (Synthroid) 200 mcg PO DAILY [facility] Stop: 10/20/16 09:01 Lorazepam (Ativan) 0.5 mg PO BID PRN PRN Reason: Anxiety Metoprolol Tartrate (Lopressor) 5 mg IVP Q6HR PRN PRN Reason: SEE COMMENTS Stop: 10/20/16 00:16 Metoprolol Tartrate (Lopressor) 50 mg PO BID [facility] Stop: 10/20/16 09:01 Naloxone HCl (Narcan) 0.4 mg IVP Q2MIN PRN PRN Reason: Opioid Reversal Stop: 10/20/16 00:16 Nitroglycerin (Nitroglycerin) 0.4 mg SL Q5MIN PRN PRN Reason: Chest Pain Stop: 10/20/16 00:16 Nystatin (Nystop) 1 appl TP BID [facility] Stop: 10/20/16 09:01 Last Admin: 04/20/16 11:05 Dose: 1 appl Oxycodone HCl (Roxicodone) 5 mg PO Q6HR PRN PRN Reason: Moderate Pain (4-6) Stop: 10/20/16 00:16 Pantoprazole Sodium (Protonix) 40 mg IVP DAILY [facility] Stop: 10/20/16 09:01 Last Admin: 04/20/16 11:05 Dose: 40 mg Paricalcitol (Zemplar) 1 mcg PO DAILY [facility] Stop: 10/20/16 09:01 Rosuvastatin Calcium (Crestor) 20 mg PO HS [facility] Stop: 10/20/16 21:01 Vancomycin HCl (Vancocin) 0 each IVPB RPHPROT PRN PRN Reason: PULSE DOSE Stop: 10/20/16 04:59 - Imaging and Cardiology Chest Xray: report reviewed Echo: report reviewed (04/20/10--Conclusion: 1. LVEF 55-60% 2. Mild concentric left ventricular hypertrophy. 3. The right atrium is mildly dilated. 4. The mitral valve has normal structure. 5. There is trivial mitral regurgitation. 6. Normal pulmonary pressures. 7. The tricuspid valve is not well seen. 8. The pulmonic valve is not well seen. 9. The aortic root is not well visualized. 10. Clinical correlation is suggested.) Cardiac cath: report reviewed (04/21/10-Impression: Severe three vessel coronary artery disease. Mild left main coronary artery disease. 15% stenosis in the left main coronary artery. 60% stenosis in the mid LAD. 60 to 70% stenosis in the proximal to mid LCx. Occluded proximal RCA. Good quality collateral vessels from the first obtuse marginal artery to the distal first right posterolateral artery were present. Fair quality collateral vessels from the third septal human resources hr generalist to the mid first posterior descending septal human resources hr generalist artery were present. The overall left ventricular systolic function was mildly reduced. The left ventricular ejection fraction was 45-50%. Recommendation: Optimal medical therapy of the patient's disease, including aspirin, beta blockers, karla inhibitors, Plavix and statin therapy. Consider PCI of Mid LAD if angina is refractory to medical Rx) - EKG Interpretation EKG results cardiology: personally reviewed (SR with 1st degree block), other ( 24 hour tele AVG HR 66, PAF.) Consult Discharge Plan - Plan Referrals: Sepideh Gallo MD [Primary Care Provider] -
[2016-04-20 11:59] LABS: Bilirubin,Urine Negative (Negative); Blood,Urine Small (Negative); Clarity,Urine Clear (Clear); Color,Urine Yellow (Yellow); Glucose,Urine (UA) Normal (Normal); Ketones,Urine Negative (Negative); Leukocyte Esterase,Urine Trace (Negative); Nitrite,Urine Negative (Negative); Protein,Urine 100 mg/dL (Neg-Trace); Specific Gravity,Urine 1.018 (1.010-1.025); Urobilinogen,Urine Normal (Normal)
[2016-04-20 12:34] LABS: Hyaline Casts,Urine Many per lpf (None-Few); Squamous Epithelial Cell,Urine Few per lpf (None-Few)
[2016-04-20 12:35] LABS: Bacteria,Urine Few per hpf (None-Few)
[2016-04-20 13:00] LABS: Activated Partial Thrombo Time 123.8 Seconds (26.0-36.0)
[2016-04-20 14:10] LABS: Amphetamine Screen,Urine Negative ng/mL (Cutoff=1000); Barbiturate Screen,Urine Negative ng/mL (Cutoff=200); Benzodiazepines Screen,Urine Negative ng/mL (Cutoff=200); Cannabinoid Screen,Urine Negative ng/mL (Cutoff = 50); Cocaine Screen,Urine Negative ng/mL (Cutoff= 300); Opiate Screen,Urine Positive ng/mL (Cutoff=300); Phencyclidine Screen,Urine Negative ng/mL (Cutoff=25)
--- NOTE | 2016-04-20 15:10 | ECHO - Doppler Report ---
Echocardiogram Name: An Olivia Date of Study: 04/20/2016 Date: 1940 Ht: 63.0 in Medical Record#: [id number] Age: 75 Wt: 189.0 lb Gender: Female BSA: 1.89 Order #: [id number] Location: [facility] Room #: 2N01 Reading Physician: Mary Davis DO [employer] Director: Hayden Degroot RN Ordering Physician: Brian Davis MD Primary Physician: Sepideh Gallo MD Indications: Acute Coronary Syndrome Impressions: Incomplete exam-only PLAX and SAX images were obtained. Patient declined further imaging. LV systolic function may be low normal or mildly reduced in the images provided. It was not well evaluated. RV is not well evaluated. Valves were incompletely examined. There is mild TR and mild to moderate IA. Left Ventricular Wall Motion: Rest Echo Findings The basal anterior septal and basal inferior lateral smith were hypokinetic. The apex, apical inferior, mid inferior, apical anterior, mid anterior, basal anterior, apical septal, mid inferior septal, basal inferior septal, apical lateral, mid anterior lateral, basal anterior lateral, mid anterior septal and mid inferior lateral smith were not visualized. Findings: Study Quality * Technically sub-optimal. Patient did not complete exam. Only PLAX and PSAX images were obtained. ECG Findings * Normal sinus rhythm with first degree AVB. Mitral Valve * Mildly calcified mitral valve leaflets. * Trace mitral regurgitation. Aortic Valve * Leaflet morphology not perfectly visualized. Consider trileaflet. * Mildly calcified aortic valve leaflets. Left Ventricle * Mild concentric left ventricular hypertrophy. Tricuspid Valve * Normal tricuspid valve structure. * Mild tricuspid regurgitation. Pulmonic Valve * Pulmonic valve is not well visualized. * No pulmonic stenosis. * Mild-moderate pulmonic regurgitation. Pulmonary Artery * Pulmonary artery not well visualized. Aorta * Normally sized aortic root. History Hypertension Diabetes Hypercholesteremia Family History of CAD History of CAD/PTCA Myocardial Infarction Congestive Heart Failure 04/20/2010 a Previous Echo was performed. Measurements: BP: 166/ 55 2D Normal Values IVSd: 1.30 cm 0.6 - 1.0 cm LVIDd: 5.00 cm 3.7 - 5.6 cm LVPWd: 1.30 cm 0.6 - 1.1 cm LVIDs: 3.70 cm 1.5 - 3.6 cm LA: 4.40 cm 2.0 - 4.0cm %FS: 26.00 cm >25 % LVOT Diam: 1.70 cm LA volume: Tricuspid Valve TV Regurg Peak Grad: 19.00mmHg TV Regurg Peak Elliott: 2.19m/sec Updated by Mary Davis on 04/20/2016 3:04:21 PM electronically signed on 04/20/2016 3:05:50 PM with status of Final Wall Motion Urena: 1=Normal, 2=Hypokinesis, 3=Akinesis, 4=Dyskinesis, 5=Aneurysmal, 6=Hyperkinetic, X=Not Visualized (Blank)=Missing
--- NOTE | 2016-04-20 15:37 | Event Note ---
<Hermes Jeffries - Last Filed: 04/20/16 16:10> Date of Encounter: 04/20/16 Time of Encounter: 10:00 Mrs. Olivia was admitted early this morning after transfer from [facility] for non-ST elevation myocardial infarction and urinary tract infection. Ms. Olivia is a resident of a residential for the last 2 weeks and has had slow decline of her mental status over this time period. According to notes she has had increasingly dark urine with an abnormal smell, which prompted evaluation of [facility]. EKG demonstrated non-ST elevation myocardial infarction correlating with troponin levels of 2.25, 2.24. The patient is slightly confused during evaluation today but denies any chest pain, palpitations, shortness of breath or any other discomforts. Viewing patient documentation she has not had any chest pain or chest pressure with this current visit. She is currently under treatment for altered mental status, non-ST elevation myocardial infarction, urinary tract infection and bilateral pedal diabetic ulcers. Current antibiotic coverage includes meropenem 500 mg every 12 hours, vancomycin renally dosed. 1. Altered mental status: Possibly multifactorial from urinary tract infection, bilateral lower extremity infections, non-STEMI - Continue treating underlying medical conditions. 2. Urinary tract infection - Covered current antibiotics. 3. Diabetic foot ulcers: - Continue wound care, glucose control, antibiotic coverage. 4. Non-ST elevation myocardial infarction: Patient risk factors: Hypertension, type 2 diabetes, former smoker, hyperlipidemia, hypertension, history of triple vessel disease, PAD female with age 75, previous HI, previous echocardiogram with reduced EF around 35%. Patient refused completion of echocardiogram during current visit. Last troponin was 1.20 trending down from 2.25. HEIDY score: 6 with 41% all cause mortality at 14 days Cardiac coverage: Heparin drip is discontinued, continue aspirin 81 mg, Lopressor 50 mg by mouth twice a day, Crestor 20 mg by mouth at bedtime Cardiology was consult it at this time opting for medical management 5. DVT prophylaxis: Heparin subcutaneous every 12 hours <Doug Mckeon - Last Filed: 04/20/16 18:55> Pt admitted earlier this AM. Delusion recently. Worse now. Troponin elevated - medical management. Continue plan as above.
[2016-04-20] MEDS: Meropenem 500 MG in 0.9 % Sodium Chloride Mini Bag 100 ML IVPB SCH (17:00)
[2016-04-20] MEDS ORDERED: *HR* Warfarin 1 MG TABLET PO SCH (18:00)
[2016-04-20] MEDS ORDERED: Warfarin perPT PO PRN (18:00)
[2016-04-20] MEDS: Acetaminophen 325 MG TABLET PO PRN (19:46)
[2016-04-21] MEDS: Meropenem 500 MG in 0.9 % Sodium Chloride Mini Bag 100 ML IVPB SCH (05:28)
[2016-04-21] MEDS ORDERED: Furosemide 40 MG/4 ML VIAL IVP ONE (05:38)
[2016-04-21 05:44] LABS: INR 3.4; Prothrombin Time 37.6 Seconds (9.4-12.1)
[2016-04-21 05:59] LABS: Basophils % 0.4 %; Eosinophils % 0.6 %; Hematocrit 36.1 % (35.3-44.9); Hemoglobin 10.6 g/dL (11.5-15.4); Immature Granulocytes % 0.4 % (0-4); Lymphocytes # 0.4 K/mcL (0.6-4.6); Lymphocytes % 5.7 %; Mean Corpuscular HGB Conc 29.4 g/dL (31.6-35.5); Mean Corpuscular Volume 81.9 fL (83.0-100.0); Mean Platelet Volume 11.4 fL (9.4-12.4); Monocytes # 0.8 K/mcL (0.0-1.3); Monocytes % 10.8 %; Neutrophils # 5.8 K/mcL (1.6-8.9); Platelet Count 155 K/mcL (140-400); Red Blood Count 4.41 M/mcL (3.82-4.97); Red Cell Distribution Width 20.2 % (11.5-14.5); Segmented Neutrophils % 82.1 %
[2016-04-21] MEDS ORDERED: *HR* Heparin 5,000 UNIT/ML VIAL SQ SCH (06:00)
[2016-04-21 06:15] LABS: Albumin 2.1 g/dL (3.5-5.0); Albumin/Globulin Ratio 0.5 (1.1-2.2); Bilirubin,Total 0.6 mg/dL (0.2-1.2); Calcium 8.3 mg/dL (8.6-10.8); Potassium 4.2 mEq/L (3.5-4.5); Total Protein 6.1 g/dL (6.0-8.3)
[2016-04-21] MEDS: Acetaminophen 325 MG TABLET PO PRN (06:24)
[2016-04-21] MEDS ORDERED: Acetaminophen 650 MG RECTAL SUPP RC PRN (06:40)
[2016-04-21] MEDS: Insulin LISPRO 300 UNITS/3 ML VIAL SQ SCH ×3 (07:50→17:21)
--- NOTE | 2016-04-21 08:17 | Internal Med Progress Note ---
Date of Encounter: 04/21/16 Time of Encounter: 08:15 - Assessment and plan (1) Acute metabolic encephalopathy Current Visit: Yes Status: Acute Assessment and plan: improving; related to underlying medical conditions and hypoxia; patient has been having declining mental status over the last few weeks per grand-daughter at bedside; Patient's plan of care has been discussed in detail with her granddaughter and it is noted that patient's youngest son is her medical power of assistant prosecuting attorney. Given her multiple underlying medical conditions and her altered mental status, family is encouraged to discuss about her CODE STATUS and she verbalized understanding. (2) Non-STEMI (non-ST elevated myocardial infarction) Current Visit: Yes Status: Acute Assessment and plan: Patient presented with confusion and noted to have elevated Troponins, suggestive of ACS; Cardiology signed off today as patient has opted for medical management despite multiple discussions; declined left heart catheterization. Continue aspirin, beta cely, statin. She is not a candidate for cardiac rehabilitation per cardiology. Continue supportive care. (3) Paroxysmal a-fib Current Visit: Yes Status: Chronic Assessment and plan: Currently rate controlled. Continue beta cely and long-term anticoagulations with Coumadin. INR noted to be 3.4. Continue telemetry monitoring. (4) UTI (urinary tract infection), bacterial Current Visit: Yes Status: Ruled-out Assessment and plan: Urine culture shows no significant growth. (5) CAD (coronary artery disease) Current Visit: Yes Status: Chronic Qualifiers: Coronary Disease-Associated Artery/Lesion type: [place] artery [place] vs. transplanted heart: [place] heart Associated angina: without angina Qualified Code(s): I25.10 - Atherosclerotic heart disease of [place] coronary artery without angina pectoris (6) CKD (chronic kidney disease) stage 4, GFR 15-29 ml/min Current Visit: Yes Status: Chronic Assessment and plan: Serum creatinine improving back to baseline. Dose antibiotics according to current GFR and avoid new nephrotoxic agents. Continue to monitor serum creatinine closely. (7) Congestive heart failure Current Visit: Yes Status: Chronic Assessment and plan: Not noted to be in acute exacerbation. Continue diuresis, JODEE inhibitor, beta cely and nitrate. Patient refused to have echocardiogram completed and limited echo shows normal to minimally decreased EF with no gross abnormalities. Qualifiers: Congestive heart failure type: combined Congestive heart failure chronicity : acute on chronic Qualified Code(s): I50.43 - Acute on chronic combined systolic (congestive) and diastolic (congestive) heart failure (8) DM2 (diabetes mellitus, type 2) Current Visit: Yes Status: Chronic Assessment and plan: Continue Accu-Chek blood glucose monitoring with sliding scale insulin. Blood sugars noted to be well controlled. Diabetic diet. 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 No leukocytosis. Wound care consult for bilateral heel ulcers obtained, patient is noted to have exposed tendon on left heel. Discontinue meropenem and start IV cefepime, Flagyl along with IV vancomycin. Monitor closely. X-ray left foot to evaluate for osteomyelitis. Check ESR and CRP. We will consult podiatry. (10) Hypothyroidism Current Visit: Yes Status: Chronic Qualifiers: Hypothyroidism type: unspecified Qualified Code(s): E03.9 - Hypothyroidism , unspecified (11) Peripheral vascular disease Current Visit: Yes Status: Chronic - Subjective Interval history: Mostly drowsy but arousable to verbal stimulus. Answers yes to most questions and does not want to talk more; reports no chest or abdominal pain; no dyspnea, palpitations; - Constitutional Vitals: Temp Pulse Resp BP Pulse Ox 100.8 F H 69 16 148/53 89 L 04/21/16 07:30 04/21/16 07:30 04/21/16 07:30 04/21/16 07:30 04/21/16 07:30 General appearance: Present: disheveled, A&O X 2. Absent: cooperative, answers questions appropriately - Head Head exam: Present: atraumatic, normocephalic - Neck Neck exam general surgery: Present: supple, trachea midline. Absent: lymphadenopathy - Respiratory Respiratory exam: Present: CTAB. Absent: accessory muscle use, rales, rhonchi, wheezes - Cardiovascular Cardiovascular exam: Present: irregular rhythm, +S1, +S2. Absent: diastolic murmur, gallop, rubs, systolic murmur - GI/Abdominal GI/Abdominal exam: Present: normal bowel sounds, soft, no peritoneal signs. Absent: distended, tenderness - Extremities Exam Extremities exam: Present: full ROM, pedal edema (1+ pitting pedal edema bilaterally), warm, radial pulses palpable and symetrical. Absent: calf tenderness, cyanotic - Neurological Exam Neurological exam: Present: altered, no focal deficits (further exam cannot be completed). Absent: pronater drift, facial droop, speech deficit - Skin Skin exam: Present: dry (stasis dermaitits with very dry and flaky skin on B/L anterior legs; dry ulcers on B/L heels), erythema, intact Internal Medicine: Result - Labs CBC & Chem 7: 04/21/16 11:30 04/21/16 04:30 Labs: Short CBC 04/21/16 Range/Units 04:30 WBC 7.1 (4.3-11.1) K/mcL Hgb 10.6 L (11.5-15.4) g/dL Hct 36.1 (35.3-44.9) % Plt Count 155 (140-400) K/mcL Neutrophils # 5.8 (1.6-8.9) K/mcL BMP 04/21/16 04:30 Sodium 143 Potassium 4.2 Chloride 104 Carbon Dioxide 29 BUN 27 H Creatinine 1.88 H Glucose 116 H Calcium 8.3 L Cardiac Enzymes 04/20/16 04/20/16 Range/Units 09:50 17:30 Troponin I 1.20 H* 0.69 H* (0-0.03) ng/mL Liver Function 04/21/16 Range/Units 04:30 Total Bilirubin 0.6 (0.2-1.2) mg/dL AST 32 (5-34) Units/L ALT 14 (0-55) Units/L Alkaline Phosphatase 106 (38-126) Units/L Albumin 2.1 L (3.5-5.0) g/dL Urine 04/20/16 Range/Units 11:00 Urine Color Yellow (Yellow) Urine Clarity Clear (Clear) Urine pH 6.0 (5.0-8.0) pH Units Ur Specific [place] 1.018 (1.010-1.025) Urine Protein 100 H (Neg-Trace) mg/dL Urine Glucose (UA) Normal (Normal) mg/dL - ABG Interpretation ABG results: PT/INR, D-dimer PT 37.6 Seconds (9.4-12.1) H 04/21/16 04:30 D-Dimer 723 ng/mLFEU (0-500) H 04/20/16 09:50 - Impressions Impressions Chest X-Ray 04/21/16 06:10 IMPRESSION: Cardiomegaly with improved aeration of the lung bases D/ / Alex Lyon MD / Alex Lyon MD Interpreting Provider: Alex Lyon MD Consult Discharge Plan - Plan Referrals: Sepideh Gallo MD [Primary Care Provider] - Chapo Escobar CNP [Advanced Practice Nurse] - 05/12/16 3:00 pm
[2016-04-21] MEDS: Lactobacillus 1 EACH CAP.SPRINK PO SCH ×2 (09:36→09:49)
[2016-04-21] MEDS: Ketorolac 30 MG/ML VIAL IVP PRN (09:36)
[2016-04-21] MEDS: *HR* LORazepam 0.5 MG TABLET PO PRN (09:36)
[2016-04-21] MEDS: Pantoprazole 40 MG VIAL IVP SCH (09:36)
[2016-04-21] MEDS: amLODIPine 5 MG TABLET PO SCH ×2 (09:36→09:49)
[2016-04-21] MEDS: Aspirin 81 MG TAB.CHEW PO SCH ×2 (09:36→09:49)
[2016-04-21] MEDS: Isosorbide MONOnitrate (24 HR) 60 MG TAB.ER.24H PO SCH ×2 (09:36→09:49)
[2016-04-21] MEDS: Nystatin POWDER 30 GM BOTTLE TP SCH (09:37)
--- NOTE | 2016-04-21 10:19 | Cardiology Progress Note ---
Date of Encounter: 04/21/16 Time of Encounter: 10:30 Assessment and Plan (1) Non-STEMI (non-ST elevated myocardial infarction) Current Visit: Yes Status: Acute Troponins 2.25, 2.24, 1.20 in setting of Stage 4 CKD, UTI, AMS--T max 102.5 this AM. Pt denies chest pain. C 04/21/10 Severe three vessel coronary artery disease. Medical management recommended at that time. Discussed with pt options of tx including LHC vs. medical management. R/B/A to both options discussed. Pt prefers medical management. Anticoagulated on Coumadin with therapeutic INR 2.7. Stop heparin gtt. Okay to resume Coumadin since she wants medical management and declines LHC. She is not a candidate for cardiac rehab. ASA, Statin, BB, nitrates. Refused completion of echocardiogram, images obtained show low normal/mildly reduced EF. Recommend continued supportive care for UTI, acute illness--T max 102.5 this AM. No further inpatient recommendations. Discussed plan with primary team. Recommend discussion with family regarding code status. (2) CAD (coronary artery disease) Current Visit: Yes Status: Chronic LHC 04/21/10 Severe three vessel coronary artery disease. Mild left main coronary artery disease. 15% stenosis in the left main coronary artery. 60% stenosis in the mid LAD. 60 to 70% stenosis in the proximal to mid LCx. Occluded proximal RCA. Good quality collateral vessels from the first obtuse marginal artery to the distal first right posterolateral artery were present. Fair quality collateral vessels from the third septal case coordinator to the mid first posterior descending septal case coordinator artery were present. The overall left ventricular systolic function was mildly reduced. The left ventricular ejection fraction was 45-50%. Recommendation: Optimal medical therapy of the patient's disease, including aspirin, beta blockers, karla inhibitors, Plavix and statin therapy. Consider PCI of Mid LAD if angina is refractory to medical Rx. Pt denies any chest pain in setting of NSTEMI, prefers medical management over LHC. ASA, Statin, BB, Nitrates. Qualifiers: Coronary Disease-Associated Artery/Lesion type: [place] artery [place] vs. transplanted heart: [place] heart Associated angina: without angina Qualified Code(s): I25.10 - Atherosclerotic heart disease of [place] coronary artery without angina pectoris (3) Paroxysmal a-fib Current Visit: Yes Status: Acute PAF noted, unsure of when diagnosed. EKG 03/2016 showed A-Fib. SR on admission here, but PAF noted on tele. On Coumadin for DVT hx, INR supratherapeutic, 3.4; likely secondary to antibiotics--recommend pharmacy to dose coumadin. Stage 4 CKD and rate controlled when in A-Fib, so recommend stopping Digoxin. Continue BB. Avg HR=81 SR, brief episodes of PAF noted overnight. (4) CKD (chronic kidney disease) stage 4, GFR 15-29 ml/min Current Visit: Yes Status: Chronic Management per primary team. Discussion w patient/family: The assessment and plan as outlined above was discussed with the patient and/or family members who expressed understanding and agreement. All questions were answered. Thank you for involving us in the care of your patient. Please call with any questions. The patient was discussed and reviewed with Dr. Ti Goodman; Cardiology will sign-off, follow-up as outpatient. Will coordinate appointment with office. Subjective Principal diagnosis: NSTEMI, AMS, UTI Interval history: Seen and examined. Patient is alert to self only--no family present at bedside. Per review, patient has had mental decline over the past several months, now resides [facility]. Was brought to the ED due to darkening urine color. Upon exam, she denies chest pain or discomfort. Reports she feels "tired." Objective Vital Signs, Last 4 Hours Temp Pulse Resp BP Pulse Ox 04/21/16 07:30 100.8 F H 69 16 148/53 89 L 04/21/16 07:13 69 16 04/21/16 06:37 100.8 F H 148/53 89 L General: Conversant HEENT: Atraumatic, Normocephaly Cardiac: Reg Rate and Rhythm, Normal S1 and S2 Lungs: Normal Breath Sounds Neuro: Alert and responsive (alert to self only. ) Abdomen: Soft Skin: No rashes noted on visualized skin Musculoskeletal: No Chest Wall Tenderness Extremities: No Edema, Normal Pulses Results 04/21/16 04:30 04/21/16 04:30 Lab Results 04/20/16 04/20/16 04/20/16 09:50 09:50 09:50 WBC Hgb Hct Plt Count INR APTT 123.8 H* D-Dimer 723 H Sodium Potassium Chloride Carbon Dioxide BUN Creatinine Glucose Calcium Total Bilirubin AST ALT Alkaline Phosphatase Troponin I 1.20 H* TSH 1.594 04/20/16 04/21/16 04/21/16 17:30 04:30 04:30 WBC 7.1 Hgb 10.6 L Hct 36.1 Plt Count 155 INR 3.4 APTT 40.0 H D D-Dimer Sodium Potassium Chloride Carbon Dioxide BUN Creatinine Glucose Calcium Total Bilirubin AST ALT Alkaline Phosphatase Troponin I 0.69 H* TSH 04/21/16 04:30 WBC Hgb Hct Plt Count INR APTT D-Dimer Sodium 143 Potassium 4.2 Chloride 104 Carbon Dioxide 29 BUN 27 H Creatinine 1.88 H Glucose 116 H Calcium 8.3 L Total Bilirubin 0.6 AST 32 ALT 14 Alkaline Phosphatase 106 Troponin I TSH Active Medications Acetaminophen (Tylenol) 650 mg PO Q6HR PRN PRN Reason: Mild Pain (1-3) Stop: 10/20/16 00:16 Last Admin: 04/21/16 06:24 Dose: 650 mg Acetaminophen (Tylenol 650mg Supp) 650 mg RC Q6HR PRN PRN Reason: Fever Stop: 10/21/16 06:41 Last Admin: 04/21/16 10:14 Dose: 650 mg Amlodipine Besylate (Norvasc) 5 mg PO DAILY ENE PRN Reason: Protocol Stop: 10/20/16 09:01 Last Admin: 04/21/16 09:49 Dose: Not Given Aspirin (Aspirin) 81 mg PO DAILY ENE Stop: 10/20/16 09:01 Last Admin: 04/21/16 09:49 Dose: Not Given Dextrose/Water (Dextrose 50% (Syg)) 25 ml IVP AD PRN PRN Reason: Hypoglycemia Stop: 10/20/16 04:17 Docusate Sodium (Colace) 100 mg PO BID PRN PRN Reason: Constipation Stop: 10/20/16 00:16 Glucagon (Glucagen) 1 mg IM ONCE PRN PRN Reason: Hypoglycemia Stop: 10/20/16 04:17 Glucose (Gluctose) 15 gm PO ONCE PRN PRN Reason: Hypoglycemia Stop: 10/20/16 04:17 Glucose (Gluctose) 30 gm PO ONCE PRN PRN Reason: Hypoglycemia Stop: 10/20/16 04:17 Dextrose (Dextrose 5%) 1,000 mls @ 100 mls/hr IV CONT PRN PRN Reason: HYPOGLYCEMIA Stop: 10/20/16 04:17 Cefepime HCl 1,000 mg/ (Dextrose) 100 mls @ 200 mls/hr IVPB Q12HR [facility] Stop: 10/21/16 18:01 Metronidazole (Flagyl 500 Mg/100 Ml) 500 mg in 100 mls @ 100 mls/hr IVPB Q8HR [facility] Stop: 10/21/16 16:01 Insulin Human Lispro (Humalog) 0 units SQ TIDAC [facility] PRN Reason: Protocol Stop: 10/20/16 18:46 Last Admin: 04/21/16 07:50 Dose: Not Given Insulin Human Lispro (Humalog) 0 units SQ HS [facility] PRN Reason: Protocol Stop: 10/20/16 21:01 Last Admin: 04/20/16 20:55 Dose: Not Given Isosorbide Mononitrate (Imdur) 60 mg PO DAILY [facility] Stop: 10/20/16 09:01 Last Admin: 04/21/16 09:49 Dose: Not Given Ketorolac Tromethamine (Toradol) 30 mg IVP Q6HR PRN PRN Reason: Moderate Pain (4-6) Stop: 04/25/16 00:16 Last Admin: 04/21/16 09:36 Dose: 30 mg Lactobacillus Acidophilus/Rhamnosus (Culturelle) 1 each PO BID [facility] Stop: 10/20/16 09:01 Last Admin: 04/21/16 09:49 Dose: Not Given Levothyroxine Sodium (Synthroid) 200 mcg PO DAILY [facility] Stop: 10/20/16 09:01 Last Admin: 04/21/16 09:49 Dose: Not Given Lorazepam (Ativan) 0.5 mg PO BID PRN PRN Reason: Anxiety Last Admin: 04/21/16 09:36 Dose: 0.5 mg Metoprolol Tartrate (Lopressor) 5 mg IVP Q6HR PRN PRN Reason: SEE COMMENTS Stop: 10/20/16 00:16 Metoprolol Tartrate (Lopressor) 50 mg PO BID [facility] Stop: 10/20/16 09:01 Last Admin: 04/21/16 09:36 Dose: 50 mg Naloxone HCl (Narcan) 0.4 mg IVP Q2MIN PRN PRN Reason: Opioid Reversal Stop: 10/20/16 00:16 Nitroglycerin (Nitroglycerin) 0.4 mg SL Q5MIN PRN PRN Reason: Chest Pain Stop: 10/20/16 00:16 Nystatin (Nystop) 1 appl TP BID [facility] Stop: 10/20/16 09:01 Last Admin: 04/21/16 09:37 Dose: 1 appl Oxycodone HCl (Roxicodone) 5 mg PO Q6HR PRN PRN Reason: Moderate Pain (4-6) Stop: 10/20/16 00:16 Pantoprazole Sodium (Protonix) 40 mg IVP DAILY ENE Stop: 10/20/16 09:01 Last Admin: 04/21/16 09:36 Dose: 40 mg Paricalcitol (Zemplar) 1 mcg PO DAILY [facility] Stop: 10/20/16 09:01 Last Admin: 04/21/16 09:49 Dose: Not Given Rosuvastatin Calcium (Crestor) 20 mg PO HS [facility] Stop: 10/20/16 21:01 Last Admin: 04/20/16 21:57 Dose: Not Given Vancomycin HCl (Vancocin) 0 each IVPB RPHPROT PRN PRN Reason: PULSE DOSE Stop: 10/20/16 04:59 Warfarin Sodium (Coumadin Perpt) 1 each PO DAILY@1800 PRN PRN Reason: SEE COMMENTS Stop: 10/20/16 18:01 Warfarin Sodium (Coumadin) 0.5 mg PO DAILY@1800 ENE Stop: 10/20/16 18:01 Last Admin: 04/20/16 19:28 Dose: 0.5 mg - Imaging and Cardiology Chest Xray: report reviewed Echo: report reviewed Other Results: Telemetry: avg HR=81 SR. Brief episode of PAF noted. - EKG Interpretation EKG results cardiology: personally reviewed Consult Discharge Plan - Plan Referrals: Sepideh Gallo MD [Primary Care Provider] -
[2016-04-21 11:55] LABS: Hematocrit 33.3 % (35.3-44.9); Hemoglobin 9.8 g/dL (11.5-15.4); Mean Corpuscular HGB Conc 29.4 g/dL (31.6-35.5); Mean Corpuscular Volume 81.6 fL (83.0-100.0); Mean Platelet Volume 11.1 fL (9.4-12.4); Platelet Count 142 K/mcL (140-400); Red Blood Count 4.08 M/mcL (3.82-4.97); Red Cell Distribution Width 20.3 % (11.5-14.5)
[2016-04-21] MEDS: MetroNIDAZOLE 500 MG/100 ML 500 MG/100 ML BAG IVPB SCH (16:00)
[2016-04-21] MEDS: Cefepime HCl 1,000 MG in D5% in Water (Mini-Bag+) 100 ML IVPB SCH (17:23)
[2016-04-21] MEDS: Vancomycin 1,250 MG in D5% in Water 250 ML IVPB SCH (20:30)
[2016-04-22] MEDS: MetroNIDAZOLE 500 MG/100 ML 500 MG/100 ML BAG IVPB SCH ×4 (00:05→23:47)
[2016-04-22] MEDS: *HR* OxyCODONE Immed Rel 5 MG TABLET PO PRN ×3 (06:09→23:50)
[2016-04-22] MEDS: Lactobacillus 1 EACH CAP.SPRINK PO SCH ×3 (06:11→20:51)
[2016-04-22] MEDS: Nystatin POWDER 30 GM BOTTLE TP SCH ×3 (06:12→21:30)
[2016-04-22] MEDS: Insulin LISPRO 300 UNITS/3 ML VIAL SQ SCH ×5 (06:12→21:31)
[2016-04-22] MEDS: Cefepime HCl 1,000 MG in D5% in Water (Mini-Bag+) 100 ML IVPB SCH (06:15)
[2016-04-22 07:31] LABS: Prothrombin Time 33.2 Seconds (9.4-12.1)
[2016-04-22 07:34] LABS: Activated Partial Thrombo Time 43.5 Seconds (26.0-36.0)
[2016-04-22 07:35] LABS: Basophils % 0.3 %
[2016-04-22 07:37] LABS: Eosinophils # 0.1 K/mcL (0.0-0.6); Eosinophils % 1.8 %; Hematocrit 35.7 % (35.3-44.9); Hemoglobin 10.5 g/dL (11.5-15.4); Immature Granulocytes % 0.3 % (0-4); Immature Platelets 7.8 % (1.1-6.1); Lymphocytes # 0.4 K/mcL (0.6-4.6); Lymphocytes % 8.8 %; Mean Corpuscular HGB Conc 29.4 g/dL (31.6-35.5); Mean Corpuscular Hemoglobin 24.3 pg (28.0-33.3); Mean Corpuscular Volume 82.6 fL (83.0-100.0); Mean Platelet Volume 11.4 fL (9.4-12.4); Monocytes # 0.5 K/mcL (0.0-1.3); Monocytes % 11.9 %; Neutrophils # 3.1 K/mcL (1.6-8.9); Platelet Count 126 K/mcL (140-400); Red Blood Count 4.32 M/mcL (3.82-4.97); Red Cell Distribution Width 19.9 % (11.5-14.5); Segmented Neutrophils % 76.9 %
[2016-04-22 07:57] LABS: Platelet Estimate Decreased (Normal)
[2016-04-22] MEDS: Isosorbide MONOnitrate (24 HR) 60 MG TAB.ER.24H PO SCH (08:16)
[2016-04-22] MEDS: Pantoprazole 40 MG VIAL IVP SCH (08:16)
[2016-04-22] MEDS: amLODIPine 5 MG TABLET PO SCH (08:16)
[2016-04-22] MEDS: Aspirin 81 MG TAB.CHEW PO SCH (08:16)
[2016-04-22] MEDS: Acetaminophen 325 MG TABLET PO PRN (08:23)
--- NOTE | 2016-04-22 12:08 | Internal Med Progress Note ---
Date of Encounter: 04/22/16 Time of Encounter: 12:06 - Assessment and plan (1) Diabetic foot infection Current Visit: Yes Status: Chronic Assessment and plan: Noted to have low-grade fever of 100.1 this morning. No leukocytosis. Wound care consult for bilateral heel ulcers obtained, continue local wound care. Continue IV Flagyl and IV vancomycin, we will change cefepime to Levaquin, anticipating discharge. Blood cultures remain negative and no wound cultures could be sent due to wounds being dry. X-ray left foot shows diffuse osteopenia , no focal fracture or dislocation or any other abnormality. Continue to monitor ESR and CRP, elevated at this time. Case discussed with podiatry, recommend to continue antibiotics with local wound care. (2) Acute metabolic encephalopathy Current Visit: Yes Status: Acute Assessment and plan: improving; related to underlying medical conditions and hypoxia and possibly dementia; continues to have poor insight into her medical conditions and is not a candidate to make her own medical decisions. Awaiting family discussion regarding her CODE STATUS. Continue supportive care and to treat underlying medical conditions. (3) Non-STEMI (non-ST elevated myocardial infarction) Current Visit: Yes Status: Acute Assessment and plan: Patient presented with confusion and noted to have elevated Troponins, suggestive of ACS; Cardiology signed off today as patient has opted for medical management despite multiple discussions; declined left heart catheterization. Continue aspirin, beta cely, statin. She is not a candidate for cardiac rehabilitation per cardiology. Continue supportive care. (4) Paroxysmal a-fib Current Visit: Yes Status: Chronic Assessment and plan: Currently rate controlled. Continue beta cely and long-term anticoagulation with Coumadin. INR noted to be 3. Continue telemetry monitoring. (5) UTI (urinary tract infection), bacterial Current Visit: Yes Status: Ruled-out (6) CAD (coronary artery disease) Current Visit: Yes Status: Chronic Qualifiers: Coronary Disease-Associated Artery/Lesion type: [place] artery [place] vs. transplanted heart: [place] heart Associated angina: without angina Qualified Code(s): I25.10 - Atherosclerotic heart disease of [place] coronary artery without angina pectoris (7) CKD (chronic kidney disease) stage 4, GFR 15-29 ml/min Current Visit: Yes Status: Chronic Assessment and plan: Serum creatinine improving back to baseline. Dose antibiotics according to current GFR and avoid new nephrotoxic agents. Continue to monitor serum creatinine closely. (8) Congestive heart failure Current Visit: Yes Status: Chronic Assessment and plan: Not noted to be in acute exacerbation. Continue diuresis, JODEE inhibitor, beta cely and nitrate. Patient refused to have echocardiogram completed and limited echo shows normal to minimally decreased EF with no gross abnormalities. Qualifiers: Congestive heart failure type: combined Congestive heart failure chronicity : acute on chronic Qualified Code(s): I50.43 - Acute on chronic combined systolic (congestive) and diastolic (congestive) heart failure (9) DM2 (diabetes mellitus, type 2) Current Visit: Yes Status: Chronic Assessment and plan: Continue Accu-Chek blood glucose monitoring with sliding scale insulin. Blood sugars noted to be well controlled. Diabetic diet. 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 for medical terminology insulin use: without adjunct faculty for medical terminology use Chronic kidney disease stage: stage 3 (moderate) Qualified Code(s): E11.22 - Type 2 diabetes mellitus with diabetic chronic kidney disease; N18.3 - Chronic kidney disease, stage 3 ( moderate) (10) Hypothyroidism Current Visit: Yes Status: Chronic Qualifiers: Hypothyroidism type: unspecified Qualified Code(s): E03.9 - Hypothyroidism , unspecified (11) Peripheral vascular disease Current Visit: Yes Status: Chronic - Subjective Interval history: Noted to be drowsy; able to tell me her name and that she is in the hospital; mostly answers- "I don't know" to remaining questions; - Constitutional Vitals: Temp Pulse Resp BP Pulse Ox 98.7 F 94 14 95/44 99 04/22/16 11:19 04/22/16 11:19 04/22/16 11:19 04/22/16 11:19 04/22/16 11:19 General appearance: Present: A&O X 2. Absent: cooperative, answers questions appropriately - Respiratory Respiratory exam: Present: CTAB. Absent: accessory muscle use, rales, rhonchi, wheezes - Cardiovascular Cardiovascular exam: Present: RRR, +S1, +S2. Absent: diastolic murmur, gallop, rubs, systolic murmur - GI/Abdominal GI/Abdominal exam: Present: normal bowel sounds, soft, no peritoneal signs. Absent: distended, tenderness - Extremities Exam Extremities exam: Present: pedal edema, warm, radial pulses palpable and symetrical. Absent: calf tenderness, cyanotic - Skin Skin exam: Present: dry, intact Additional comments: Bilateral heel ulcers stable. Right medial heel with stage II ulcer. Status post partial amputation of left first toe. Left foot with multiple areas of stage I decubitus ulcers along with stage III ulcer on left heel. No signs of abscess or active infection. Internal Medicine: Result - Labs CBC & Chem 7: 04/22/16 06:20 04/21/16 04:30 Labs: Short CBC 04/22/16 Range/Units 06:20 WBC 4.0 L (4.3-11.1) K/mcL Hgb 10.5 L (11.5-15.4) g/dL Hct 35.7 (35.3-44.9) % Plt Count 126 L (140-400) K/mcL Neutrophils # 3.1 (1.6-8.9) K/mcL - ABG Interpretation ABG results: PT/INR, D-dimer PT 33.2 Seconds (9.4-12.1) H 04/22/16 06:20 D-Dimer 723 ng/mLFEU (0-500) H 04/20/16 09:50 - Impressions Impressions Foot X-Ray 04/21/16 17:00 IMPRESSION: Diffuse osteopenia. No definite evidence of acute fracture or dislocation of the left foot. Chronic changes as described above. Soft tissue swelling of the left foot. Question of soft tissue defects of the left heel. No definite evidence of adjacent bony erosion to suggest acute osteomyelitis. MRI can better detect subtle acute osteomyelitis. D/ / Ander Washington MD / Ander Washington MD Interpreting Provider: Ander Washington MD Consult Discharge Plan - Plan Referrals: Sepideh Gallo MD [Primary Care Provider] - ([facility] IS GOING TO [facility] NO PCP APPOINTMENT NEEDED) Chapo Escobar CNP [Advanced Practice Nurse] - 05/12/16 3:00 pm
[2016-04-22] MEDS ORDERED: Levofloxacin 500 MG/100 ML 500 MG/100 ML BAG IVPB SCH (13:00)
[2016-04-22 13:50] LABS: Calcium 8.3 mg/dL (8.6-10.8)
[2016-04-22 13:53] LABS: Potassium 3.4 mEq/L (3.5-4.5)
--- NOTE | 2016-04-22 17:27 | Podiatry Consult Note ---
Date of Encounter: 04/22/16 Time of Encounter: 17:00 Assessment and Plan (1) CKD (chronic kidney disease) stage 4, GFR 15-29 ml/min Current visit: Yes Status: Chronic (2) DM2 (diabetes mellitus, type 2) Current visit: Yes Status: Chronic Qualifiers: Diabetes mellitus complication status: with kidney complications Diabetes mellitus complication detail: with chronic kidney disease Diabetes mellitus intermediate insulin use: without computer terminal operator use Chronic kidney disease stage: stage 3 (moderate) Qualified Code(s): E11.22 - Type 2 diabetes mellitus with diabetic chronic kidney disease; N18.3 - Chronic kidney disease, stage 3 ( moderate) (3) Foot ulcer due to secondary DM Current visit: No Status: Acute Dressings removed and ulcerations assessed at bedside- new dressing replaced SRAVANTHI's were completed at last visit and patient never followed up- consult to vasular surgery for recommendation - please call- needs to be seen ANDREZ Bone and tendon exposed- will consider possible I&D in AM per Sessions after evaluation from vascular Orders placed for ESR, CRP in AM Daily dressing changes with adaptic, 4x4 and kerlex and mepilex to bilateral heels for protection Orders for bolivar boots to alleviate pressure from ankles and heels Please obtain wound cultures from left ankle Sw to manage for patient living situation, unable to care for self at home- (4) Peripheral vascular disease Current visit: Yes Status: Chronic History of Present Illness HPI: Ms. Olivia is a 75 year old female known to and the wound care center. Patient was recently admitted and consulted to podiatry for a ulceration of the left ankle and right heel. Upon arrival to the room patient is moderately confused and a poor historian. Patient states that ulcer to left heel occurred a few days ago but she was seen for this ulceration as a inpatient last month, although it was not to this extent. Patient was treated for ulceration and SRAVANTHI' s were obtained at this time, they were severely diminished and she was to follow up with vascular surgery on outpatient basis. Right: The right posterior tibial pressure is 69 mmHg with an index of 0.42. Left: The left dorsalis pedis pressure is 53 mmHg with an index of 0.33. PVR: Right: The PVR waveforms are severely diminished in the right ankle. Left: The PVR waveforms are severely diminished in the left ankle. Patient states she has severe pain to left ankle. Patient denies any fevers, chills, n/v or flu like symptoms. Patient denies any calf pain. Current CRP 90 and WBC 4.0 Upon arrival, mepilex intact to left ankle and right heel Past Med Surg Social Fam HX - Past Medical History Medical history: arthritis (Cervical spine osteomyelitis 2010. Chronic low back pain. Amputation left great toe. Left lateral foot diabetic ulcer.), asthma, atrial fibrillation, cardiomyopathy (LVEF A-35% 2011 echo. Mild MR. Grade 1 diastolic dysfunction.), CHF, COPD, coronary artery disease (Heart catheterization 2010 demonstrated mild LMCA disease 15% stenosis LAD 60% stenosis in midportion 60-70% stenosis and proximal to mid left circumflex. Proximal RCA occluded. Collaterals from first obtuse marginal to the distal right posterolateral artery. LVEF 45-50%.), DVT (Left leg DVT. Chronic Coumadin therapy.), diabetes (Right eye blindness.), GERD, GI bleed ( hemorrhoids.), hyperlipidemia, hypertension, myocardial infarction (x2), osteoporosis, peripheral artery disease (Left carotid artery endarterectomy. Left leg femoral artery stent.), renal disease, thyroid disease, venous stasis, other (Psoriatic arthritis. Psoriasis. Diabetic peripheral neuropathy.) Psychiatric history: anxiety, depression - Past Surgical History Surgical History: carotid endarterectomy, cataract (Bilateral cataracts.), cholecystectomy, orthopedic, other, other (Left great toe amputation 2009.), vascular surgery, LE stent (s) - Social History Smoking Status: Former smoker Packs per day: 1ppd x44yrs Smokeless Tobacco Status: No Alcohol use: none Drug use: none - Family History Son Adopted: [place]: MELBA Age: 32 Family Member Ethnicity: Non- Living Status: Age at : 32 Cause of : CHF Hx Family Cardiac Disorders: Yes Hx Family Respiratory Disorders: No Hx Family Cancer: Yes (MOTHER, GRANDDAUGHTERS X 2) Hx Family GI Disorders: No Hx Family Genitourinary Disorders: Yes Hx Family Endocrine Disorder: Yes Hx Family Musculoskeletal Disorders: No Hx Family Neuromuscular Disorders: No Hx Family Neurologic Disorders: No Hx Family HEENT Disorders: No Hx Family Autoimmune Disorders: Yes Hx Family Reproductive Disorders: No Hx Family Psychosocial Disorders: Yes Hx Family Medical Disorders: Yes Mother Family Member Ethnicity: Non- Living Status: Hx Family Cardiac Disorders: No Hx Family Respiratory Disorders: No Hx Family Cancer: Yes Hx Family GI Disorders: No Hx Family Endocrine Disorder: No Hx Family Neuromuscular Disorders: No Hx Family Neurologic Disorders: No Hx Family HEENT Disorders: No Hx Family Autoimmune Disorders: No Medications and Allergies Furosemide [Lasix] 40 mg PO BID 06/25/15 [History] Metoprolol Tartrate [Lopressor] 50 mg PO BID 06/25/15 [History] Multivit-Min/FA/Lycopen/Lutein [A Thru Z Select Multivit Tab] 1 tab PO DAILY [History] Omeprazole [PriLOSEC] 20 mg PO DAILY 06/25/15 [History] Paricalcitol [Zemplar] 1 mcg PO DAILY 06/25/15 [History] Amlodipine [Norvasc] 5 mg PO DAILY 03/09/16 [History] Gabapentin [Neurontin] 100 mg PO HS 03/09/16 [History] Insulin NPH Hum/Reg Insulin Hm [Humulin 70/30 Kwikpen] 28 unit SQ HS 03/09/16 [ History] Insulin NPH Hum/Reg Insulin Hm [Humulin 70/30 Kwikpen] 30 unit SQ QA 03/09/16 [ History] Levothyroxine Sodium [Levoxyl] 200 mcg PO DAILY 03/09/16 [History] Lisinopril [Zestril] 20 mg PO DAILY 03/09/16 [History] Nystatin POWDER [Nystop] 1 appl TP BID 03/09/16 [History] Warfarin [Coumadin] 1.5 mg PO QPM 03/09/16 [History] LORazepam [Lorazepam] 0.5 mg PO BID PRN 03/30/16 [History] Mirtazapine [Remeron] 15 mg PO HS 03/30/16 [History] Nitroglycerin [Nitrostat] 0.4 mg SL QDPC PRN 03/30/16 [History] Tramadol HCl [Ultram] 50 mg PO QID PRN 03/30/16 [History] HYDROcodone/Acet 5/325 mg [[place] 5-325 mg] 1 tab PO Q8H PRN 04/01/16 [History] Meclizine HCl [Verticalm] 25 mg PO TID PRN 04/01/16 [History] Digoxin [Lanoxin] 0.125 mg PO DAILY #30 tablet 04/02/16 [Rx] Isosorbide MONOnitrate (24 HR) [Imdur] 60 mg PO DAILY #30 tab.er.24h 04/02/16 [ Rx] Allergies codeine Allergy (Verified 03/02/16 10:31) Hives Penicillins [PCN] Allergy (Verified 03/02/16 10:31) Hives All Systems Reviewed: A 10-system review of systems was performed and is negative for pertinent findings except as documented above in the HPI. Physical Exam - Constitutional Vitals: Temp Pulse Resp BP Pulse Ox 98.3 F 55 16 137/36 99 04/22/16 15:09 04/22/16 15:21 04/22/16 15:09 04/22/16 15:09 04/22/16 15:09 Exam: General Examination: CONSTITUTIONAL: Alert, poor historian EXTREMITIES: CFT 3 seconds all toes. Edema +1 and pedal pulses non palpable to RLE or LLE SKIN: Skin with decreased turgor, decreased subcutaneous tissue, skin thin and shiny with trophic changes associated with comorbidities as described in history.. NEUROLOGIC: Minimal sensation to moderate touch Left ankle ulceration: 6.8cm x 3cm 0.4cm and 3.2cm tunnelling towards 6oclock - Large area of slough tissue with black eschar tissue. 10% granulation tissue. Ankle bone and tendon noted to be exposed to proximal area of wound. Eschar tissue noted to distal aspect of wound. No drainage noted at this time. Mild odor. Mild warmth. Edema and erythema present surrounding wound. Pain with manipulation. Right heel- 3.2cmx2.8cm area of pressure to heel, black eschar tissue 50% 50% granulation tissue- limited to breakdown of skin only. Left heel- blue/white areas of discoloration- non blanchable Results - Labs Result Diagrams: 04/25/16 04:21 04/25/16 04:21 Labs: Abnormal lab results WBC 4.0 K/mcL (4.3-11.1) L 04/22/16 06:20 Hgb 10.5 g/dL (11.5-15.4) L 04/22/16 06:20 MCV 82.6 fL (83.0-100.0) L 04/22/16 06:20 MCH 24.3 pg (28.0-33.3) L 04/22/16 06:20 MCHC 29.4 g/dL (31.6-35.5) L 04/22/16 06:20 RDW 19.9 % (11.5-14.5) H 04/22/16 06:20 Plt Count 126 K/mcL (140-400) L 04/22/16 06:20 Lymphocytes # 0.4 K/mcL (0.6-4.6) L 04/22/16 06:20 Platelet Estimate Decreased (Normal) L 04/22/16 06:20 Immature Plt Fraction 7.8 % (1.1-6.1) H 04/22/16 06:20 ESR 84 mm/hr (0-15) H 04/22/16 06:20 PT 33.2 Seconds (9.4-12.1) H 04/22/16 06:20 APTT 43.5 Seconds (26.0-36.0) H 04/22/16 06:20 Fibrinogen 537 mg/dL (169-393) H 04/20/16 09:50 D-Dimer 723 ng/mLFEU (0-500) H 04/20/16 09:50 VBG pH 7.43 pH Units (7.32-7.42) H 04/20/16 09:50 VBG pCO2 54 mmHg (41-51) H 04/20/16 09:50 VBG pO2 46 mmHg (25-40) H 04/20/16 09:50 VBG HCO3 35.8 mEq/L (21-27) H 04/20/16 09:50 Potassium 3.4 mEq/L (3.5-4.5) L 04/22/16 13:20 Carbon Dioxide 31 mEq/L (19-29) H 04/22/16 13:20 BUN 31 mg/dL (7-20) H 04/22/16 13:20 Creatinine 1.96 mg/dL (0.57-1.11) H 04/22/16 13:20 Est GFR ( Amer) 30 (> 60) L 04/22/16 13:20 Est GFR (Non-Af Amer) 25 (> 60) L 04/22/16 13:20 POC Glucose 127 (58-89) H 04/22/16 15:10 Hemoglobin A1c 6.2 % (-5.6) H 04/20/16 01:31 Calculated Osmolality 304 (280-300) H 04/22/16 13:20 Calcium 8.3 mg/dL (8.6-10.8) L 04/22/16 13:20 Magnesium 1.5 mg/dL (1.6-2.6) L 04/20/16 01:31 Troponin I 0.69 ng/mL (0-0.03) H* 04/20/16 17:30 C-Reactive Protein 90 mg/L (Less than 5) H 04/22/16 13:20 B-Natriuretic Peptide 2623 pg/mL (0-100) H 04/20/16 01:31 Albumin 2.1 g/dL (3.5-5.0) L 04/21/16 04:30 Globulin 4.0 g/dL (2.4-3.5) H 04/21/16 04:30 Albumin/Globulin Ratio 0.5 (1.1-2.2) L 04/21/16 04:30 HDL Cholesterol 31 mg/dL (40-59) L 04/20/16 01:31 Free T3 1.38 pg/mL (1.71-3.71) L 04/20/16 09:50 Urine Protein 100 mg/dL (Neg-Trace) H 04/20/16 11:00 Urine Blood Small (Negative) H 04/20/16 11:00 Ur Leukocyte Esterase Trace (Negative) H 04/20/16 11:00 Urine Microscopic RBC 3-5 per hpf (0-3) H 04/20/16 11:00 Urine Microscopic WBC 5-15 per hpf (0-3) H 04/20/16 11:00 Hyaline Casts Many per lpf (None-Few) H 04/20/16 11:00 Urine Opiates Screen Positive ng/mL (Zbdmyr=865) H 04/20/16 12:30 H & H 04/22/16 Range/Units 06:20 Hgb 10.5 L (11.5-15.4) g/dL Hct 35.7 (35.3-44.9) % All other labs normal. Consult Discharge Plan - Plan Referrals: Sepideh Gallo MD [Primary Care Provider] - (PT IS GOING TO [facility] NO PCP APPOINTMENT NEEDED) Chapo Escobar, CAMPUS ADMINISTRATOR [Advanced Practice Nurse] - 05/12/16 3:00 pm
[2016-04-22] MEDS: Vancomycin 1,250 MG in D5% in Water 250 ML IVPB SCH (20:51)
[2016-04-23 04:48] LABS: INR 3.2; Prothrombin Time 35.6 Seconds (9.4-12.1)
[2016-04-23 04:51] LABS: Activated Partial Thrombo Time 43.3 Seconds (26.0-36.0)
[2016-04-23 06:27] LABS: Hematocrit 30.2 % (35.3-44.9); Mean Corpuscular HGB Conc 29.8 g/dL (31.6-35.5); Mean Corpuscular Hemoglobin 24.5 pg (28.0-33.3); Mean Corpuscular Volume 82.1 fL (83.0-100.0); Mean Platelet Volume 12.3 fL (9.4-12.4); Platelet Count 121 K/mcL (140-400); Red Blood Count 3.68 M/mcL (3.82-4.97); Red Cell Distribution Width 19.4 % (11.5-14.5)
[2016-04-23] MEDS: Aspirin 81 MG TAB.CHEW PO SCH (07:42)
[2016-04-23] MEDS: amLODIPine 5 MG TABLET PO SCH (07:42)
[2016-04-23] MEDS: Lactobacillus 1 EACH CAP.SPRINK PO SCH ×2 (07:42→20:42)
[2016-04-23] MEDS: Pantoprazole 40 MG VIAL IVP SCH (07:43)
[2016-04-23] MEDS: MetroNIDAZOLE 500 MG/100 ML 500 MG/100 ML BAG IVPB SCH ×3 (07:43→23:54)
[2016-04-23] MEDS: Isosorbide MONOnitrate (24 HR) 60 MG TAB.ER.24H PO SCH (07:43)
[2016-04-23] MEDS: Insulin LISPRO 300 UNITS/3 ML VIAL SQ SCH ×4 (07:43→20:43)
[2016-04-23] MEDS: Nystatin POWDER 30 GM BOTTLE TP SCH ×2 (07:44→20:42)
[2016-04-23] MEDS ORDERED: Aminoglycoside Consult 1 EACH MC ONE (08:04)
[2016-04-23 08:21] LABS: BUN/Creatinine Ratio 17 (6-26); Blood Urea Nitrogen 34 mg/dL (7-20); eGFR For African Americans 29 (> 60); eGFR For Non-African Americans 24 (> 60)
--- NOTE | 2016-04-23 10:56 | Internal Med Progress Note ---
Date of Encounter: 04/23/16 Time of Encounter: 10:30 - Assessment and plan (1) Diabetic foot infection Current Visit: Yes Status: Chronic Assessment and plan: Fever and leukocytosis improved. Podiatry consult noted, now recommend vascular surgery consult for severe bilateral lower extremity vascular disease as noted on arterial studies from March 2016. Plan for possible left heel ulcer debridement after being cleared by vascular surgery. Recommend to send wound culture from left heel, will follow-up. Wound care consult for bilateral heel ulcers obtained, continue local wound care. Continue IV Flagyl and IV Levaquin. Blood cultures remain negative; X- ray left foot shows diffuse osteopenia, no focal fracture or dislocation or any other abnormality. Continue to monitor ESR and CRP, elevated at this time. Plan for patient to return SNF when medically stable; social worker clinical on board. (2) Acute metabolic encephalopathy Current Visit: Yes Status: Resolved Assessment and plan: Mental status currently at baseline. However patient continues to have problems with behavioral disturbances and mood issues. She is noted to be uncooperative with medical staff assessment and interventions. Continue home medications for anxiety and start low-dose Seroquel at bedtime. (3) Non-STEMI (non-ST elevated myocardial infarction) Current Visit: Yes Status: Acute Assessment and plan: Patient presented with confusion and noted to have elevated Troponins, suggestive of ACS; patient is currently alert and oriented and wishes to be full code and reports that she does not remember discussing with cardiology during this admission. Case again discussed with cardiology and recommended no intervention at this time. Continue aspirin, beta cely, statin. She is not a candidate for cardiac rehabilitation per cardiology. Continue supportive care. (4) Paroxysmal a-fib Current Visit: Yes Status: Chronic (5) UTI (urinary tract infection), bacterial Current Visit: Yes Status: Ruled-out (6) CAD (coronary artery disease) Current Visit: Yes Status: Chronic Qualifiers: Coronary Disease-Associated Artery/Lesion type: [place] artery [place] vs. transplanted heart: [place] heart Associated angina: without angina Qualified Code(s): I25.10 - Atherosclerotic heart disease of [place] coronary artery without angina pectoris (7) CKD (chronic kidney disease) stage 4, GFR 15-29 ml/min Current Visit: Yes Status: Chronic (8) Congestive heart failure Current Visit: Yes Status: Chronic Qualifiers: Congestive heart failure type: combined Congestive heart failure chronicity : acute on chronic Qualified Code(s): I50.43 - Acute on chronic combined systolic (congestive) and diastolic (congestive) heart failure (9) DM2 (diabetes mellitus, type 2) Current Visit: Yes Status: Chronic Assessment and plan: Continue Accu-Chek blood glucose monitoring with sliding scale insulin. Blood sugars noted to be well controlled. Diabetic diet. Qualifiers: Diabetes mellitus complication status: with kidney complications Diabetes mellitus complication detail: with chronic kidney disease Diabetes mellitus chemical manager insulin use: without custodial use Chronic kidney disease stage: stage 3 (moderate) Qualified Code(s): E11.22 - Type 2 diabetes mellitus with diabetic chronic kidney disease; N18.3 - Chronic kidney disease, stage 3 ( moderate) (10) Hypothyroidism Current Visit: Yes Status: Chronic Qualifiers: Hypothyroidism type: unspecified Qualified Code(s): E03.9 - Hypothyroidism , unspecified (11) Peripheral vascular disease Current Visit: Yes Status: Chronic Assessment and plan: Bilateral lower extremity severe cases. Will follow-up vascular surgery consult. - Subjective Interval history: Noted to be alert and oriented today. When not answering questions, continuously moans and reports she is in severe pain from her feet. No fever, nausea, vomiting or diarrhea. No chest pain or shortness of breath. Patient is noted to have mood and behavioral issues, often not cooperating with medical staff, answering only when she likes to. She reports today that she does not remember being evaluated or talked to by cardiology. - Constitutional Vitals: Temp Pulse Resp BP Pulse Ox 98.2 F 66 18 117/63 97 04/23/16 07:42 04/23/16 07:42 04/23/16 07:42 04/23/16 07:42 04/23/16 07:42 General appearance: Present: A&O X 2, answers questions appropriately. Absent: cooperative - Respiratory Respiratory exam: Present: CTAB. Absent: accessory muscle use, rales, rhonchi, wheezes - Cardiovascular Cardiovascular exam: Present: RRR, +S1, +S2. Absent: diastolic murmur, gallop, rubs, systolic murmur - GI/Abdominal GI/Abdominal exam: Present: normal bowel sounds, soft, no peritoneal signs. Absent: distended, tenderness - Extremities Exam Extremities exam: Present: warm, radial pulses palpable and symetrical. Absent : calf tenderness, cyanotic, pedal edema Additional comments: Multiple stage I through 4 decubitus ulcers on bilateral feet, the worst on the left heel with exposed tendon Internal Medicine: Result - Labs CBC & Chem 7: 04/23/16 05:44 04/23/16 04:32 Labs: Short CBC 04/23/16 Range/Units 05:44 WBC 3.1 L (4.3-11.1) K/mcL Hgb 9.0 L D (11.5-15.4) g/dL Hct 30.2 L (35.3-44.9) % Plt Count 121 L (140-400) K/mcL BMP 04/22/16 04/23/16 13:20 04:32 Sodium 144 Potassium 3.4 L Chloride 107 Carbon Dioxide 31 H BUN 31 H 34 H Creatinine 1.96 H 2.03 H Glucose 94 Calcium 8.3 L - ABG Interpretation ABG results: PT/INR, D-dimer PT 35.6 Seconds (9.4-12.1) H 04/23/16 04:32 D-Dimer 723 ng/mLFEU (0-500) H 04/20/16 09:50 Consult Discharge Plan - Plan Referrals: Sepideh Gallo MD [Primary Care Provider] - ([facility] IS GOING TO [facility] NO PCP APPOINTMENT NEEDED) Chapo Escobar, JOSIAS [Advanced Practice Nurse] - 05/12/16 3:00 pm
[2016-04-23] MEDS: *HR* OxyCODONE Immed Rel 5 MG TABLET PO PRN (10:59)
--- NOTE | 2016-04-23 11:23 | Vascular/Endovasc Consult Note ---
Date of Encounter: 04/23/16 Time of Encounter: 11:20 Assessment and Plan (1) Peripheral vascular disease Current Visit: Yes Status: Chronic Severe peripheral vascular disease in this nonambulatory elderly lady. His has resulted in severe tissue loss and ulcer on the medial aspect of left ankle with exposed bone and tendon. She also has stage IV kidney disease. An aggressive approach would be to place her on Mucomyst and obtain a CTA aortogram with runoff followed by general anesthetic and bypass procedure in hopes of healing her left lower extremity ulcer. She is not ambulatory and the utility of this approach that would risk her renal function did not change her ambulation status is not reasonable. Because of the degree of pain that she is having as well as the severity of tissue loss and peripheral vascular disease I recommended left above-knee amputation to control her pain and infection and return her to her previous lifestyle with no change in her ambulatory status. In my opinion we should not proceed with diagnostic workup and peripheral bypass. We should proceed with primary left above-knee amputation - History of Present Illness Consult date: 04/23/16 Requesting physician: Trina Lobo Consult reason: Severe peripheral vascular disease with tissue loss Chief complaint: Complex wound left ankle with exposed bone and tendon History of present illness: Ms. Olivia is a 75 year old female Who has been nonambulatory for 3 years. Her left lower extremity has chronic venous stasis changes and muscular atrophy below the knee. She has a medial right ankle complex wound with exposed bone and tendon as well as a good deal of undermining and necrosis. She has had ankle-brachial index demonstrates an SRAVANTHI of 0.32 on the left and 0.42 on the right. Her right foot is in constant pain. She has stage IV renal disease. She now presents for vascular surgery evaluation. Past Med Surg Social Fam HX - Past Medical History Medical history: arthritis (Cervical spine osteomyelitis 2010. Chronic low back pain. Amputation left great toe. Left lateral foot diabetic ulcer.), asthma, atrial fibrillation, cardiomyopathy (LVEF A-35% 2011 echo. Mild MR. Grade 1 diastolic dysfunction.), CHF, COPD, coronary artery disease (Heart catheterization 2010 demonstrated mild LMCA disease 15% stenosis LAD 60% stenosis in midportion 60-70% stenosis and proximal to mid left circumflex. Proximal RCA occluded. Collaterals from first obtuse marginal to the distal right posterolateral artery. LVEF 45-50%.), DVT (Left leg DVT. Chronic Coumadin therapy.), diabetes (Right eye blindness.), GERD, GI bleed ( hemorrhoids.), hyperlipidemia, hypertension, myocardial infarction (x2), osteoporosis, peripheral artery disease (Left carotid artery endarterectomy. Left leg femoral artery stent.), renal disease, thyroid disease, venous stasis, other (Psoriatic arthritis. Psoriasis. Diabetic peripheral neuropathy.) Psychiatric history: anxiety, depression - Past Surgical History Surgical History: carotid endarterectomy, cataract (Bilateral cataracts.), cholecystectomy, orthopedic, other, other (Left great toe amputation 2009.), vascular surgery, LE stent (s) - Social History Smoking Status: Former smoker Packs per day: 1ppd x44yrs Smokeless Tobacco Status: No Alcohol use: none Drug use: none - Family History Son Adopted: [place]: MELBA Age: 32 Family Member Ethnicity: Non- Living Status: Age at : 32 Cause of : CHF Hx Family Cardiac Disorders: Yes Hx Family Respiratory Disorders: No Hx Family Cancer: Yes (MOTHER, GRANDDAUGHTERS X 2) Hx Family GI Disorders: No Hx Family Genitourinary Disorders: Yes Hx Family Endocrine Disorder: Yes Hx Family Musculoskeletal Disorders: No Hx Family Neuromuscular Disorders: No Hx Family Neurologic Disorders: No Hx Family HEENT Disorders: No Hx Family Autoimmune Disorders: Yes Hx Family Reproductive Disorders: No Hx Family Psychosocial Disorders: Yes Hx Family Medical Disorders: Yes Mother Family Member Ethnicity: Non- Living Status: Hx Family Cardiac Disorders: No Hx Family Respiratory Disorders: No Hx Family Cancer: Yes Hx Family GI Disorders: No Hx Family Endocrine Disorder: No Hx Family Neuromuscular Disorders: No Hx Family Neurologic Disorders: No Hx Family HEENT Disorders: No Hx Family Autoimmune Disorders: No Medications and Allergies Furosemide [Lasix] 40 mg PO BID 06/25/15 [History] Metoprolol Tartrate [Lopressor] 50 mg PO BID 06/25/15 [History] Multivit-Min/FA/Lycopen/Lutein [A Thru Z Select Multivit Tab] 1 tab PO DAILY [History] Omeprazole [PriLOSEC] 20 mg PO DAILY 06/25/15 [History] Paricalcitol [Zemplar] 1 mcg PO DAILY 06/25/15 [History] Amlodipine [Norvasc] 5 mg PO DAILY 03/09/16 [History] Gabapentin [Neurontin] 100 mg PO HS 03/09/16 [History] Insulin NPH Hum/Reg Insulin Hm [Humulin 70/30 Kwikpen] 28 unit SQ HS 03/09/16 [ History] Insulin NPH Hum/Reg Insulin Hm [Humulin 70/30 Kwikpen] 30 unit SQ QAM 03/09/16 [ History] Levothyroxine Sodium [Levoxyl] 200 mcg PO DAILY 03/09/16 [History] Lisinopril [Zestril] 20 mg PO DAILY 03/09/16 [History] Nystatin POWDER [Nystop] 1 appl TP BID 03/09/16 [History] Warfarin [Coumadin] 1.5 mg PO QPM 03/09/16 [History] LORazepam [Lorazepam] 0.5 mg PO BID PRN 03/30/16 [History] Mirtazapine [Remeron] 15 mg PO HS 03/30/16 [History] Nitroglycerin [Nitrostat] 0.4 mg SL QDPC PRN 03/30/16 [History] Tramadol HCl [Ultram] 50 mg PO QID PRN 03/30/16 [History] HYDROcodone/Acet 5/325 mg [[place] 5-325 mg] 1 tab PO Q8H PRN 04/01/16 [History] Meclizine HCl [Verticalm] 25 mg PO TID PRN 04/01/16 [History] Digoxin [Lanoxin] 0.125 mg PO DAILY #30 tablet 04/02/16 [Rx] Isosorbide MONOnitrate (24 HR) [Imdur] 60 mg PO DAILY #30 tab.er.24h 04/02/16 [ Rx] Allergies codeine Allergy (Verified 03/02/16 10:31) Hives Penicillins [PCN] Allergy (Verified 03/02/16 10:31) Hives All Systems Review: A 10-system review of systems was performed and is negative for pertinent findings except as documented above in the HPI. Exam Vital Signs, Last 4 Hours Temp Pulse Resp BP Pulse Ox 04/23/16 07:42 98.2 F 66 18 117/63 97 04/23/16 07:30 66 General: Present: Other (Chronically ill-appearing. Nonambulatory. Constant pain from her left foot) HEENT: Present: Atraumatic, Normocephaly Neck: Present: Right Carotid bruit Cardiac: Present: Reg Rate and Rhythm, Normal S1 and S2 Lungs: Present: Normal Breath Sounds Neuro: Present: Alert and responsive, No focal deficits noted, Cranial nerves grossly intact Abdomen: Present: Soft, Non-tender Vascular: Present: Other (No peripheral pulses at the foot level. She does have femoral pulses. The left leg has a complex wound with exposed bone and tendon. She is nonambulatory) Skin: Present: Wound/ulcer(s) (Complex wound with exposed bone and tendon on the medial aspect of the left ankle.) Consult Discharge Plan - Plan Referrals: Sepideh Gallo MD [Primary Care Provider] - (PT IS GOING TO [facility] NO PCP APPOINTMENT NEEDED) Chapo Escobar CNP [Advanced Practice Nurse] - 05/12/16 3:00 pm
--- NOTE | 2016-04-23 14:53 | Podiatry Progress Note ---
Date of Encounter: 04/23/16 Time of Encounter: 14:49 - Assessment and Plan (1) Foot ulcer Current Visit: No Status: Chronic Due to the extensive nature of the ischemia on her foot and ankle I agree with Dr. Solorzano's assessment and considering her poor blood flow feel as though she would be a good candidate for BKA. The patient was instructed that it would be unlikely that her wound would heal and due to the significant ischemia and current tissue loss she would be best treated with BKA. Dr. Solorzano will continue her care from this point. Qualifiers: Laterality: unspecified laterality Non-pressure ulcer stage: limited to breakdown of skin Qualified Code(s): L97.501 - Non-pressure chronic ulcer of other part of unspecified foot limited to breakdown of skin Subjective Principal diagnosis: NSTEMI, AMS, UTI, vascular disease Interval history: Patient was seen at bedside and denies any new complaints. Objective - Vital Signs Vital Signs: Vital Signs Temp Pulse Resp BP Pulse Ox 04/23/16 11:39 100.1 F H 71 16 162/60 92 L 04/23/16 11:15 71 04/23/16 07:42 98.2 F 66 18 117/63 97 04/23/16 07:30 66 04/23/16 04:25 98.2 F 72 18 134/54 96 04/22/16 23:42 99.0 F 70 18 144/94 96 04/22/16 23:08 98.8 F 67 20 136/57 97 04/22/16 19:04 98.4 F 79 20 144/67 98 04/22/16 15:21 55 04/22/16 15:09 98.3 F 60 16 137/36 99 Intake and Output 04/22/16 04/23/16 04/23/16 23:59 07:59 15:59 Intake Total 400 / 400 100 / 100 0 / 0 Output Total 325 / 325 Balance 75 / 75 100 / 100 0 / 0 Intake: IV Fluids 100 / 100 100 / 100 Flagyl 500 MG/100 ML 500 100 / 100 100 / 100 mg In 100 ml @ 100 mls/hr IVPB Q8HR ENE Rx#: [id number] Oral 300 / 300 0 / 0 Output: Catheter 325 / 325 Other: Meal Lunch Percent of Meal Consumed 0% Weight 85.1 kg Blood Glucose* 99 93 84 Patient Weight 04/23/16 23:59 Weight 85.1 kg - Exam Exam: Unchanged from exam yesterday. Little to no palpable pulses. Capillary fill time sluggish. Wound consistent with dimensions from yesterday. - Lab Result Diagrams: 04/23/16 05:44 04/23/16 04:32 Labs: Abnormal lab results WBC 3.1 K/mcL (4.3-11.1) L 04/23/16 05:44 RBC 3.68 M/mcL (3.82-4.97) L 04/23/16 05:44 Hgb 9.0 g/dL (11.5-15.4) L D 04/23/16 05:44 Hct 30.2 % (35.3-44.9) L 04/23/16 05:44 MCV 82.1 fL (83.0-100.0) L 04/23/16 05:44 MCH 24.5 pg (28.0-33.3) L 04/23/16 05:44 MCHC 29.8 g/dL (31.6-35.5) L 04/23/16 05:44 RDW 19.4 % (11.5-14.5) H 04/23/16 05:44 Plt Count 121 K/mcL (140-400) L 04/23/16 05:44 Lymphocytes # 0.4 K/mcL (0.6-4.6) L 04/22/16 06:20 Platelet Estimate Decreased (Normal) L 04/22/16 06:20 Immature Plt Fraction 7.8 % (1.1-6.1) H 04/22/16 06:20 ESR 84 mm/hr (0-15) H 04/22/16 06:20 PT 35.6 Seconds (9.4-12.1) H 04/23/16 04:32 APTT 43.3 Seconds (26.0-36.0) H 04/23/16 04:32 Fibrinogen 537 mg/dL (169-393) H 04/20/16 09:50 D-Dimer 723 ng/mLFEU (0-500) H 04/20/16 09:50 VBG pH 7.43 pH Units (7.32-7.42) H 04/20/16 09:50 VBG pCO2 54 mmHg (41-51) H 04/20/16 09:50 VBG pO2 46 mmHg (25-40) H 04/20/16 09:50 VBG HCO3 35.8 mEq/L (21-27) H 04/20/16 09:50 Potassium 3.4 mEq/L (3.5-4.5) L 04/22/16 13:20 Carbon Dioxide 31 mEq/L (19-29) H 04/22/16 13:20 BUN 34 mg/dL (7-20) H 04/23/16 04:32 Creatinine 2.03 mg/dL (0.57-1.11) H 04/23/16 04:32 Est GFR ( Amer) 29 (> 60) L 04/23/16 04:32 Est GFR (Non-Af Amer) 24 (> 60) L 04/23/16 04:32 POC Glucose 99 (58-89) H 04/22/16 21:27 Hemoglobin A1c 6.2 % (-5.6) H 04/20/16 01:31 Calculated Osmolality 304 (280-300) H 04/22/16 13:20 Calcium 8.3 mg/dL (8.6-10.8) L 04/22/16 13:20 Magnesium 1.5 mg/dL (1.6-2.6) L 04/20/16 01:31 Troponin I 0.69 ng/mL (0-0.03) H* 04/20/16 17:30 C-Reactive Protein 90 mg/L (Less than 5) H 04/22/16 13:20 B-Natriuretic Peptide 2623 pg/mL (0-100) H 04/20/16 01:31 Albumin 2.1 g/dL (3.5-5.0) L 04/21/16 04:30 Globulin 4.0 g/dL (2.4-3.5) H 04/21/16 04:30 Albumin/Globulin Ratio 0.5 (1.1-2.2) L 04/21/16 04:30 HDL Cholesterol 31 mg/dL (40-59) L 04/20/16 01:31 Free T3 1.38 pg/mL (1.71-3.71) L 04/20/16 09:50 Urine Protein 100 mg/dL (Neg-Trace) H 04/20/16 11:00 Urine Blood Small (Negative) H 04/20/16 11:00 Ur Leukocyte Esterase Trace (Negative) H 04/20/16 11:00 Urine Microscopic RBC 3-5 per hpf (0-3) H 04/20/16 11:00 Urine Microscopic WBC 5-15 per hpf (0-3) H 04/20/16 11:00 Hyaline Casts Many per lpf (None-Few) H 04/20/16 11:00 Urine Opiates Screen Positive ng/mL (Egubqs=862) H 04/20/16 12:30 Microbiology, Last 48 Hours 04/21/16 11:30 Blood Culture - Preliminary Peripheral Venipuncture No growth. 04/20/16 09:50 Blood Culture - Preliminary Peripheral Venipuncture No growth. Consult Discharge Plan - Plan Referrals: Sepideh Gallo MD [Primary Care Provider] - (PT IS GOING TO [facility] NO PCP APPOINTMENT NEEDED) Chapo Escobar CNP [Advanced Practice Nurse] - 05/12/16 3:00 pm
[2016-04-23] MEDS ORDERED: D5% in 0.45% NACL 1,000 ML IVC SCH (16:15)
[2016-04-23] MEDS ORDERED: D5% in 0.45% NACL 1,000 ML IVC ONE (16:16)
[2016-04-23] MEDS: *HR* LORazepam 0.5 MG TABLET PO PRN (22:03)
[2016-04-24] MEDS: *HR* OxyCODONE Immed Rel 5 MG TABLET PO PRN (01:18)
[2016-04-24 04:46] LABS: Eosinophils % 0.3 %; Red Cell Distribution Width 19.7 % (11.5-14.5)
[2016-04-24 04:48] LABS: Hematocrit 29.9 % (35.3-44.9); Immature Granulocytes % 0.8 % (0-4); Lymphocytes # 0.7 K/mcL (0.6-4.6); Mean Corpuscular HGB Conc 30.1 g/dL (31.6-35.5); Mean Corpuscular Hemoglobin 24.6 pg (28.0-33.3); Mean Corpuscular Volume 81.7 fL (83.0-100.0); Mean Platelet Volume 12.5 fL (9.4-12.4); Monocytes # 0.4 K/mcL (0.0-1.3); Monocytes % 10.3 %; Neutrophils # 2.7 K/mcL (1.6-8.9); Platelet Count 117 K/mcL (140-400); Red Blood Count 3.66 M/mcL (3.82-4.97); Segmented Neutrophils % 69.6 %
[2016-04-24 05:13] LABS: Anisocytosis 1+ (Not Present); Platelet Estimate Slight Decrease (Normal)
[2016-04-24 05:14] LABS: Ovalocytes 1+ (Not Present)
[2016-04-24] MEDS ORDERED: 0.9 % Sodium Chloride 500 ML ONE ×2 (07:30→09:50)
--- NOTE | 2016-04-24 07:33 | Anesthesia Evaluation PreOp ---
Date of Encounter: 04/24/16 Time of Encounter: 07:28 - Past History Planned Operation: Left AKA Cardiac History: CHF, HTN, Hyperlipidemia, Arrhythmia (Afib), Other ( Cardiomyopathy) Pulmonary History: Asthma GREY ROLL MAN History: Other (Demetia) Other Medical History: Renal (CRD stage IV), Diabetes Type II, GERD Anesthesia History: No Prior Anesthetic Complications, Past Anesthesia (CEA, GB , LE stents) : No Alcohol Use: none Drug use: none Medications and Allergies Furosemide [Lasix] 40 mg PO BID 06/25/15 [History] Metoprolol Tartrate [Lopressor] 50 mg PO BID 06/25/15 [History] Multivit-Min/FA/Lycopen/Lutein [A Thru Z Select Multivit Tab] 1 tab PO DAILY [History] Omeprazole [PriLOSEC] 20 mg PO DAILY 06/25/15 [History] Paricalcitol [Zemplar] 1 mcg PO DAILY 06/25/15 [History] Amlodipine [Norvasc] 5 mg PO DAILY 03/09/16 [History] Gabapentin [Neurontin] 100 mg PO HS 03/09/16 [History] Insulin NPH Hum/Reg Insulin Hm [Humulin 70/30 Kwikpen] 28 unit SQ HS 03/09/16 [ History] Insulin NPH Hum/Reg Insulin Hm [Humulin 70/30 Kwikpen] 30 unit SQ QAM 03/09/16 [ History] Levothyroxine Sodium [Levoxyl] 200 mcg PO DAILY 03/09/16 [History] Lisinopril [Zestril] 20 mg PO DAILY 03/09/16 [History] Nystatin POWDER [Nystop] 1 appl TP BID 03/09/16 [History] Warfarin [Coumadin] 1.5 mg PO QPM 03/09/16 [History] LORazepam [Lorazepam] 0.5 mg PO BID PRN 03/30/16 [History] Mirtazapine [Remeron] 15 mg PO HS 03/30/16 [History] Nitroglycerin [Nitrostat] 0.4 mg SL QDPC PRN 03/30/16 [History] Tramadol HCl [Ultram] 50 mg PO QID PRN 03/30/16 [History] HYDROcodone/Acet 5/325 mg [[place] 5-325 mg] 1 tab PO Q8H PRN 02/24/17 [History] Meclizine HCl [Verticalm] 25 mg PO TID PRN 04/01/16 [History] Digoxin [Lanoxin] 0.125 mg PO DAILY #30 tablet 04/02/16 [Rx] Isosorbide MONOnitrate (24 HR) [Imdur] 60 mg PO DAILY #30 tab.er.24h 04/02/16 [ Rx] Allergies codeine Allergy (Verified 03/02/16 10:31) Hives Penicillins [PCN] Allergy (Verified 03/02/16 10:31) Hives - Meds/Allergy Pre-op Review Medications Reviewed: Yes Allergies Reviewed: Yes Beta Blockers on Current Med List: Yes If Beta Blockers taken, Date/Time (Last Dose taken): 20:43 04/23/2016 Anesthesia Results - Labs 04/24/16 03:47 04/23/16 04:32 04/21/10 LHC severe CAD EF45-50% ECHO 04/20/16 Low normal EF, not well visualized - Imaging EKG: image reviewed (SR 1st degree AV block, RBBB) Anesthesia Exam O2 Sat Weight 85.5 kg O2 Sat by Pulse Oximetry 100 O2 Sat by Pulse Oximetry 100 O2 Sat by Pulse Oximetry 96 O2 Sat by Pulse Oximetry 96 O2 Sat by Pulse Oximetry 92 O2 Sat by Pulse Oximetry 97 Vital Signs Pulse Ox 97 04/19/16 23:58 Vital Signs/O2 Sat, Most Current Temp Pulse Resp BP Pulse Ox 99.6 F 74 24 127/65 100 04/24/16 03:24 04/24/16 03:24 04/24/16 03:24 04/24/16 03:24 04/24/16 03:24 Height: 5'3" Weight: 188# NPO (# of Hours): > 8 hrs Pain Scale: 5 Pain Scale Used: Numeric (1 - 10) - HEENT Pupil (Motor): Pupils equal, EOMI Mallampati: III Teeth: Edentulous Oral Opening: Greater than 3 - GREY ROLL MAN LOC: Uncooperative, Unable to assess GREY ROLL MAN Motor: Normal RUE, Normal LUE, Normal RLE, Normal LLE, Normal Face GREY ROLL MAN Sensory: Normal: RUE, LUE, RLE, LLE, Face - Cardiac Rhythm: Regular Murmur: None JVD: No Carotid Bruit: No - Pulmonary Breath Sounds: bilateral Clear Respiratory Effort: Symmetrical Anesthesia Assess/Plan ASA Score: 4 Modified [place] Scale for Level of Consciousness: Cooperative, oriented, and tranquil Anesthetic Plan: General Autologous Blood: Yes Monitoring Plan: Standard Monitors Recovery Plan: PACU
[2016-04-24] MEDS ORDERED: *HR* Succinylcholine 200 MG/10 ML VIAL IVP ONE (07:53)
[2016-04-24] MEDS ORDERED: *HR* Rocuronium Bromide 50 MG/5 ML VIAL ONE (07:53)
[2016-04-24] MEDS ORDERED: Lidocaine -MPF 2% 2 ML VIAL ONE (07:53)
[2016-04-24] MEDS ORDERED: Ondansetron 4 MG/2 ML VIAL ONE (07:53)
[2016-04-24] MEDS ORDERED: *HR* Etomidate 40 MG/20 ML VIAL IVP ONE (07:54)
[2016-04-24] MEDS ORDERED: *HR* FentaNYL (PF) 100 MCG/2 ML VIAL ONE ×2 (07:59→08:00)
[2016-04-24] MEDS ORDERED: Albuterol 2.5 MG/3 ML NEBULIZER IH ONE (08:01)
[2016-04-24] MEDS ORDERED: *HR* Promethazine 25 MG/ML VIAL IVP PRN ×2 (08:01→10:33)
[2016-04-24] MEDS ORDERED: *HR* Metoprolol 5 MG/5 ML VIAL IVP PRN ×3 (08:01→10:33)
[2016-04-24] MEDS ORDERED: Ondansetron 4 MG/2 ML VIAL IVP ONE ×2 (08:01→10:33)
[2016-04-24] MEDS ORDERED: *HR* HYDROmorphone (PF) 1 MG/ML SYRINGE IVP PRN ×2 (08:01→10:33)
[2016-04-24] MEDS ORDERED: *HR* Phenylephrine 10 MG/ML VIAL ONE (08:16)
[2016-04-24] MEDS ORDERED: EPHEDrine 50 MG/ML VIAL ONE (08:16)
[2016-04-24] MEDS ORDERED: Clindamycin 900 MG/50 ML 900 MG/50 ML IV.SOLN IVPB ONE (08:25)
[2016-04-24] MEDS ORDERED: Clindamycin 600 MG/50 ML 600 MG/50 ML IV.SOLN IVPB ONE (08:30)
--- NOTE | 2016-04-24 09:29 | Operative Note ---
Date of procedure: 04/24/16 Pre-op diagnosis: Ischemic left lower extremity with tissue loss Post-op diagnosis: same Procedure: Left above-knee amputation Anesthesia: PIETER Surgeon: Deacon Solorzano Estimated blood loss (cc): 75 Specimen: Left above-knee dictation Condition: stable Disposition: PACU Procedure in Detail: After informed consent the patient was taken to the major operative suite placed in the supine position and given adequate general anesthetic. Patient had severe tissue loss on the left lower extremity and contracture of the left knee and hip. The left leg was prepped and draped in sterile fashion utilizing ChloraPrep standard draping techniques. Timeout was taken patient was identified. Lateralizing wali was identified. I started with skin markings for standard left above-knee dictation. The skin was divided. I clamped and divided the superficial veins at the great saphenous in the large vein running up the posterior thigh. Once this was done I divided the muscular elements anteriorly and then posteriorly. The sciatic nerve was identified and high ligated with 0 silk. The femoral artery was completely calcified and had no blood flow. This was clamped and high ligated with 0 silk. Femoral vein was clamped and high ligated with 0 silk. Collateral vessels were controlled with 2 -0 silk stick ties. Once all the soft tissue was divided femur was divided with oscillating saw. Hemostasis was excellent specimen was passed off the field. I irrigated with copious amounts of antibiotic containing solution. The wound was closed with 2 muscular layers in 2 subcutaneous layers. The muscular layers were interrupted 0 Vicryl in the subcutaneous layers were interrupted 2-0 Vicryl. The skin was closed with skin clips. The patient tolerated the left above-knee amputation very well and is transferred to recovery room in stable condition.
[2016-04-24] MEDS ORDERED: Neostigmine Methylsulfate 3 MG/3 ML SYRINGE ONE (09:40)
--- NOTE | 2016-04-24 10:16 | Anesthesia Evaluation Post Op ---
Date of Encounter: 04/24/16 Time of Encounter: 10:16 - Vital Signs Vital Signs: Vital Signs/O2 Sat, Most Current Temp Pulse Resp BP Pulse Ox 99.2 F 70 14 143/50 94 L 04/24/16 09:48 04/24/16 10:08 04/24/16 10:08 04/24/16 10:08 04/24/16 10:08 - Lungs Lungs: Clear Ascult./Percussion - Airway Airway: Non-obstructed - Cardiovascular Regular Rate - Mental Status Mental Status: Confused, Uncooperative, Baseline Status - Pain Pain Scale: 4 Pain Scale used: Numeric (1 - 10) - Nausea Vomiting Nausea Vomiting: Not Present - Hydration Hydration: NPO, Ortega catheter - Discharge PostOp Status: Transfer Patient to floor
[2016-04-24] MEDS ORDERED: Acetaminophen 650 MG RECTAL SUPP RC PRN (10:33)
[2016-04-24] MEDS ORDERED: *HR* Dextrose 50 % in Water (Syg) 50 ML SYRINGE IVP PRN (10:33)
[2016-04-24] MEDS ORDERED: Dextrose Gel 15 GM PO PRN ×2 (10:33)
[2016-04-24] MEDS ORDERED: Warfarin perPT PO PRN (10:33)
[2016-04-24] MEDS ORDERED: Naloxone 0.4 MG/ML INJ IVP PRN (10:33)
[2016-04-24] MEDS ORDERED: D5% in Water 1,000 ML IV PRN (10:33)
[2016-04-24] MEDS ORDERED: Acetaminophen 325 MG TABLET PO PRN (10:33)
[2016-04-24] MEDS ORDERED: Nitroglycerin 0.4 MG TAB.SUBL SL PRN (10:33)
--- NOTE | 2016-04-24 11:07 | Internal Med Progress Note ---
Date of Encounter: 04/24/16 Time of Encounter: 11:04 - Assessment and plan (1) Diabetic foot infection Current Visit: Yes Status: Chronic Assessment and plan: Vascular surgery has been consulted, given her poor baseline functional status with history of immobility for the last few months or years, underlying chronic kidney disease stage IV, in an effort to protect her current kidney function and postpone possible hemodialysis, it has been decided to amputate the left leg instead of extensive arterial studies and attempts to revascularize. Underwent left leg above-knee amputation today, postoperative day 0. Postoperative wound care per vascular surgery. Pain control with when necessary IV morphine and oral Percocet, which are high risk in this patient with baseline dementia and behavioral abnormalities. Resume diabetic diet as tolerated and hold IV hydration. Continue IV antibiotics while in-house, but patient would not require long-term antibiotics for foot ulcer as she already underwent amputation. Blood cultures have been negative. Plan for patient to return SNF when medically stable; social security assessor on board. (2) Acute metabolic encephalopathy Current Visit: Yes Status: Resolved Assessment and plan: Mental status currently at baseline. However patient continues to have problems with behavioral disturbances and mood issues. She is noted to be uncooperative with medical staff assessment and interventions. Continue home medications for anxiety and low-dose Seroquel at bedtime. (3) Non-STEMI (non-ST elevated myocardial infarction) Current Visit: Yes Status: Acute Assessment and plan: Cardiology signed off. Continue aspirin, beta cely, statin. She is not a candidate for cardiac rehabilitation per cardiology. Continue supportive care. (4) Paroxysmal a-fib Current Visit: Yes Status: Chronic Assessment and plan: Currently rate controlled. Continue beta cely and long-term anticoagulation with Coumadin. INR noted to be 3.2. Continue telemetry monitoring. (5) UTI (urinary tract infection), bacterial Current Visit: Yes Status: Ruled-out (6) CAD (coronary artery disease) Current Visit: Yes Status: Chronic Qualifiers: Coronary Disease-Associated Artery/Lesion type: [place] artery [place] vs. transplanted heart: [place] heart Associated angina: without angina Qualified Code(s): I25.10 - Atherosclerotic heart disease of [place] coronary artery without angina pectoris (7) CKD (chronic kidney disease) stage 4, GFR 15-29 ml/min Current Visit: Yes Status: Chronic (8) Congestive heart failure Current Visit: Yes Status: Chronic Qualifiers: Congestive heart failure type: combined Congestive heart failure chronicity : acute on chronic Qualified Code(s): I50.43 - Acute on chronic combined systolic (congestive) and diastolic (congestive) heart failure (9) DM2 (diabetes mellitus, type 2) Current Visit: Yes Status: Chronic Qualifiers: Diabetes mellitus complication status: with kidney complications Diabetes mellitus complication detail: with chronic kidney disease Diabetes mellitus fci insulin use: without intermodal owner operator truck driver use Chronic kidney disease stage: stage 3 (moderate) Qualified Code(s): E11.22 - Type 2 diabetes mellitus with diabetic chronic kidney disease; N18.3 - Chronic kidney disease, stage 3 ( moderate) (10) Hypothyroidism Current Visit: Yes Status: Chronic Qualifiers: Hypothyroidism type: unspecified Qualified Code(s): E03.9 - Hypothyroidism , unspecified (11) Peripheral vascular disease Current Visit: Yes Status: Chronic - Subjective Interval history: Noted to be moaning in pain, often speaking inappropriately. Patient is just back from left above-knee amputation and she does remember that. Complains of a lot of pain in her lower back and both legs. Plan of care discussed with patient's granddaughter at bedside. - Constitutional Vitals: Temp Pulse Resp BP Pulse Ox 97.9 F 62 18 131/61 92 L 04/24/16 10:31 04/24/16 10:44 04/24/16 10:31 04/24/16 10:31 04/24/16 10:31 General appearance: Present: A&O X 2. Absent: cooperative - Respiratory Respiratory exam: Present: CTAB (Coarse breath sounds bilaterally). Absent: accessory muscle use, rales, rhonchi, wheezes - Cardiovascular Cardiovascular exam: Present: RRR, +S1, +S2. Absent: diastolic murmur, gallop, rubs, systolic murmur - Extremities Exam Extremities exam: Present: warm, radial pulses palpable and symetrical. Absent : calf tenderness, cyanotic, pedal edema Additional comments: Status post left AKA, surgical dressing dry. Right leg stasis dermatitis and dry skin improving, stable decubitus ulcers on right foot Internal Medicine: Result - Labs CBC & Chem 7: 04/24/16 03:47 04/23/16 04:32 Labs: Short CBC 04/24/16 Range/Units 03:47 WBC 3.9 L (4.3-11.1) K/mcL Hgb 9.0 L (11.5-15.4) g/dL Hct 29.9 L (35.3-44.9) % Plt Count 117 L (140-400) K/mcL Neutrophils # 2.7 (1.6-8.9) K/mcL - ABG Interpretation ABG results: PT/INR, D-dimer PT 35.6 Seconds (9.4-12.1) H 04/23/16 04:32 D-Dimer 723 ng/mLFEU (0-500) H 04/20/16 09:50 Consult Discharge Plan - Plan Referrals: Sepideh Gallo MD [Primary Care Provider] - (PT IS GOING TO ECF NO PCP APPOINTMENT NEEDED) Chapo Escobar CNP [Advanced Practice Nurse] - 05/12/16 3:00 pm
[2016-04-24] MEDS: D5% in 0.45% NACL 1,000 ML IVC SCH (11:15)
[2016-04-24] MEDS: *HR* Morphine 2 MG/ML SYRINGE IVP PRN ×3 (11:17→20:01)
[2016-04-24] MEDS: Levofloxacin 500 MG/100 ML 500 MG/100 ML BAG IVPB SCH (11:22)
[2016-04-24] MEDS: Insulin LISPRO 300 UNITS/3 ML VIAL SQ SCH ×3 (12:07→20:24)
[2016-04-24 12:22] LABS: INR 3.2; Prothrombin Time 36.2 Seconds (9.4-12.1)
[2016-04-24] MEDS: MetroNIDAZOLE 500 MG/100 ML 500 MG/100 ML BAG IVPB SCH (17:11)
[2016-04-24] MEDS: Nystatin POWDER 30 GM BOTTLE TP SCH (20:02)
[2016-04-24] MEDS: Lactobacillus 1 EACH CAP.SPRINK PO SCH (20:02)
[2016-04-25] MEDS: *HR* Morphine 2 MG/ML SYRINGE IVP PRN ×5 (00:09→23:49)
[2016-04-25] MEDS: *HR* LORazepam 0.5 MG TABLET PO PRN ×2 (02:20→20:04)
[2016-04-25] MEDS: D5% in 0.45% NACL 1,000 ML IVC SCH ×2 (04:13→20:05)
[2016-04-25 04:46] LABS: Hematocrit 28.2 % (35.3-44.9); Hemoglobin 8.3 g/dL (11.5-15.4); Mean Corpuscular HGB Conc 29.4 g/dL (31.6-35.5); Mean Corpuscular Hemoglobin 24.2 pg (28.0-33.3); Mean Corpuscular Volume 82.2 fL (83.0-100.0); Mean Platelet Volume 12.2 fL (9.4-12.4); Platelet Count 112 K/mcL (140-400); Red Blood Count 3.43 M/mcL (3.82-4.97); Red Cell Distribution Width 19.4 % (11.5-14.5)
[2016-04-25 05:00] LABS: Calcium 7.2 mg/dL (8.6-10.8); Potassium 3.7 mEq/L (3.5-4.5)
[2016-04-25 05:13] LABS: INR 4.6
[2016-04-25 05:51] LABS: Lymphocytes # 0.9 K/mcL (0.6-4.6); Monocytes # 0.3 K/mcL (0.0-1.3); Neutrophils # 3.1 K/mcL (1.6-8.9); Platelet Estimate Slight Decrease (Normal)
[2016-04-25] MEDS: Insulin LISPRO 300 UNITS/3 ML VIAL SQ SCH ×4 (07:57→20:05)
--- NOTE | 2016-04-25 08:33 | Internal Med Progress Note ---
Date of Encounter: 04/25/16 Time of Encounter: 08:29 - Assessment and plan (1) Anemia Current Visit: Yes Status: Chronic Assessment and plan: Acute on chronic anemia due to kidney disease; likely related to blood loss during amputation; continue to monitor Hb with goal to transfuse to keep Hb>7; Qualifiers: Anemia type: other cause Other causes of anemia: chronic disease, kidney Qualified Code(s): N18.9 - Chronic kidney disease, unspecified; D63.1 - Anemia in chronic kidney disease (2) Diabetic foot infection Current Visit: Yes Status: Chronic Assessment and plan: Presented with possibly infected left heel ulcer with exposed tendon; noted to have severe vascular disease; Vascular surgery consulted, and patient underwent left AKA POD#1; continue local wound care per Surgery; pain control with when necessary IV morphine and oral Percocet, which are high risk in this patient with baseline dementia and behavioral abnormalities. Continue IV antibiotics while in-house, but patient would not require long-term antibiotics for foot ulcer as she already underwent amputation. Blood cultures have been negative. Plan for patient to return to SNF when medically stable; manager social on board. (3) Acute metabolic encephalopathy Current Visit: Yes Status: Resolved (4) Non-STEMI (non-ST elevated myocardial infarction) Current Visit: Yes Status: Acute Assessment and plan: Cardiology signed off. Continue beta cely, statin; hold ASA for now due to anemia following surgery and coagulopathy;. She is not a candidate for cardiac rehabilitation per cardiology. Continue supportive care. (5) Paroxysmal a-fib Current Visit: Yes Status: Chronic Assessment and plan: Currently rate controlled. Continue beta cely and long-term anticoagulation with Coumadin. Hold Coumadin now due to supratherpautic INR- 4.6; Continue telemetry monitoring. (6) UTI (urinary tract infection), bacterial Current Visit: Yes Status: Ruled-out (7) CAD (coronary artery disease) Current Visit: Yes Status: Chronic Qualifiers: Coronary Disease-Associated Artery/Lesion type: [place] artery [place] vs. transplanted heart: [place] heart Associated angina: without angina Qualified Code(s): I25.10 - Atherosclerotic heart disease of [place] coronary artery without angina pectoris (8) CKD (chronic kidney disease) stage 4, GFR 15-29 ml/min Current Visit: Yes Status: Chronic Assessment and plan: Serum creatinine slightly worse, likely due to anemia and surgery, but in the ballpark of baseline. Dose antibiotics according to current GFR and avoid new nephrotoxic agents. Continue to monitor serum creatinine closely. (9) Congestive heart failure Current Visit: Yes Status: Chronic Assessment and plan: Not noted to be in acute exacerbation. Continue diuresis, JODEE inhibitor, beta cely and nitrate. Patient refused to have echocardiogram completed and limited echo shows normal to minimally decreased EF with no gross abnormalities. Qualifiers: Congestive heart failure type: combined Congestive heart failure chronicity : acute on chronic Qualified Code(s): I50.43 - Acute on chronic combined systolic (congestive) and diastolic (congestive) heart failure (10) DM2 (diabetes mellitus, type 2) Current Visit: Yes Status: Chronic Assessment and plan: Continue Accu-Chek blood glucose monitoring with sliding scale insulin. Blood sugars noted to be well controlled. Diabetic diet. Qualifiers: Diabetes mellitus complication status: with kidney complications Diabetes mellitus complication detail: with chronic kidney disease Diabetes mellitus intermediate teacher insulin use: without intermediate teacher use Chronic kidney disease stage: stage 3 (moderate) Qualified Code(s): E11.22 - Type 2 diabetes mellitus with diabetic chronic kidney disease; N18.3 - Chronic kidney disease, stage 3 ( moderate) (11) Hypothyroidism Current Visit: Yes Status: Chronic Qualifiers: Hypothyroidism type: unspecified Qualified Code(s): E03.9 - Hypothyroidism , unspecified (12) Peripheral vascular disease Current Visit: Yes Status: Chronic - Subjective Interval history: Reports that her pain is not too good and not too bad! Moans intermittently when not speaking; no chest pain, weakness, dyspnea, dizziness; - Constitutional Vitals: Temp Pulse Resp BP Pulse Ox 98.2 F 78 18 107/61 94 L 04/25/16 07:04 04/25/16 07:04 04/25/16 07:04 04/25/16 07:04 04/25/16 07:04 General appearance: Present: A&O X 2, answers questions appropriately. Absent: cooperative - Respiratory Respiratory exam: Present: CTAB. Absent: accessory muscle use, rales, rhonchi, wheezes - Cardiovascular Cardiovascular exam: Present: RRR, +S1, +S2. Absent: diastolic murmur, gallop, rubs, systolic murmur - GI/Abdominal GI/Abdominal exam: Present: normal bowel sounds, soft (obese), no peritoneal signs. Absent: distended, tenderness - Extremities Exam Extremities exam: Present: warm, radial pulses palpable and symetrical. Absent : calf tenderness, cyanotic, pedal edema Additional comments: s/p left AKA, dressing dry - Skin Skin exam: Present: dry, intact Additional comments: stable right foot/heel dry decubitus ulcers and stasis dermatitis in right leg Internal Medicine: Result - Labs CBC & Chem 7: 04/25/16 04:21 04/25/16 04:21 Labs: Short CBC 04/25/16 Range/Units 04:21 WBC 4.3 (4.3-11.1) K/mcL Hgb 8.3 L (11.5-15.4) g/dL Hct 28.2 L (35.3-44.9) % Plt Count 112 L (140-400) K/mcL Neutrophils # 3.1 (1.6-8.9) K/mcL BMP 04/25/16 04:21 Sodium 142 Potassium 3.7 Chloride 108 Carbon Dioxide 26 BUN 40 H Creatinine 2.53 H Glucose 121 H Calcium 7.2 L - ABG Interpretation ABG results: PT/INR, D-dimer PT 52.0 Seconds (9.4-12.1) H* 04/25/16 04:21 D-Dimer 723 ng/mLFEU (0-500) H 04/20/16 09:50 Consult Discharge Plan - Plan Referrals: Sepideh Gallo MD [Primary Care Provider] - (PT IS GOING TO ECF NO PCP APPOINTMENT NEEDED) Chapo Escobar, CONVEX GRINDER OPERATOR [Advanced Practice Nurse] - 05/12/16 3:00 pm
[2016-04-25] MEDS ORDERED: Aspirin 81 MG TAB.CHEW PO SCH (09:00)
[2016-04-25] MEDS: MetroNIDAZOLE 500 MG/100 ML 500 MG/100 ML BAG IVPB SCH ×4 (09:53→23:48)
[2016-04-25] MEDS: Pantoprazole 40 MG VIAL IVP SCH (09:56)
[2016-04-25] MEDS: Lactobacillus 1 EACH CAP.SPRINK PO SCH ×2 (09:57→20:04)
[2016-04-25] MEDS: Isosorbide MONOnitrate (24 HR) 60 MG TAB.ER.24H PO SCH (09:57)
[2016-04-25] MEDS: amLODIPine 5 MG TABLET PO SCH (09:57)
[2016-04-25] MEDS: Nystatin POWDER 30 GM BOTTLE TP SCH ×2 (10:08→20:07)
[2016-04-25 12:30] LABS: Prothrombin Time 57.2 Seconds (9.4-12.1)
[2016-04-25] MEDS ORDERED: *HR* Phytonadione 10 MG/ML AMPUL SQ ONE (12:35)
[2016-04-25 12:54] LABS: Albumin/Globulin Ratio 0.5 (1.1-2.2); Bilirubin,Direct 0.2 mg/dL (0.0-0.5); Bilirubin,Indirect 0.1 mg/dL (0.0-1.2); Bilirubin,Total 0.3 mg/dL (0.2-1.2); Globulin 3.2 g/dL (2.4-3.5); Total Protein 4.7 g/dL (6.0-8.3)
[2016-04-25 12:55] LABS: Albumin 1.5 g/dL (3.5-5.0)
[2016-04-25] MEDS: *HR* OxyCODONE Immed Rel 5 MG TABLET PO PRN ×2 (15:37→23:49)
--- NOTE | 2016-04-25 17:35 | General Surgery Progress Note ---
Date of Encounter: 04/25/16 Time of Encounter: 17:33 Subjective Patient reports: feels better, pain is less Narrative: Patient seen and examined. Baseline dementia. Appears to be in much less pain since AKA. Objective Vital Signs - Last 8 Hours Temp Pulse Resp BP Pulse Ox 04/25/16 11:34 101.5 F H 67 16 109/58 94 L Intake and Output 04/25/16 04/25/16 04/25/16 07:59 15:59 23:59 Intake Total 1100 / 1100 340 / 340 Output Total 50 / 50 Balance 1050 / 1050 340 / 340 Intake: IV Fluids 1100 / 1100 100 / 100 D5% And 0.45% Nacl 1000 1000 / 1000 Ml Bag 1,000 ML @ 60 mls/ hr IVC .[id number] [facility] Rx#: [id number] Flagyl 500 MG/100 ML 500 100 / 100 100 / 100 mg In 100 ml @ 100 mls/hr IVPB Q8HR [facility] Rx#: [id number] Oral 240 / 240 Output: Catheter 50 / 50 Other: Percent of Meal Consumed 0% Weight 84.5 kg Blood Glucose* 114 194 Patient Weight 04/25/16 23:59 Weight 84.5 kg - Additional Exam General appearance: Present: A&O X 1 - Respiratory Respiratory exam: Present: CTAB. Absent: accessory muscle use, rales, rhonchi, wheezes - Cardiovascular Cardiovascular exam: Present: RRR, +S1, +S2. Absent: diastolic murmur, gallop, rubs, systolic murmur - GI/Abdominal GI/Abdominal exam: Present: normal bowel sounds, soft (obese), no peritoneal signs. Absent: distended, tenderness - Extremities Exam Extremities exam: Present: warm, radial pulses palpable and symetrical. Absent : calf tenderness, cyanotic, pedal edema Additional comments: s/p left AKA, dressing dry - Labs 04/25/16 04:21 04/25/16 04:21 Diabetes panel 04/25/16 Range/Units 04:21 Sodium 142 (136-145) mEq/L Potassium 3.7 (3.5-4.5) mEq/L Chloride 108 (98-109) mEq/L Carbon Dioxide 26 (19-29) mEq/L BUN 40 H (7-20) mg/dL Creatinine 2.53 H (0.57-1.11) mg/dL Glucose 121 H (70-99) mg/dL Calcium 7.2 L (8.6-10.8) mg/dL AST 39 H (5-34) Units/L ALT 12 (0-55) Units/L Alkaline Phosphatase 71 (38-126) Units/L Albumin 1.5 L (3.5-5.0) g/dL Calcium panel 04/25/16 Range/Units 04:21 Calcium 7.2 L (8.6-10.8) mg/dL Albumin 1.5 L (3.5-5.0) g/dL Pituitary panel 04/25/16 Range/Units 04:21 Sodium 142 (136-145) mEq/L Potassium 3.7 (3.5-4.5) mEq/L Chloride 108 (98-109) mEq/L Carbon Dioxide 26 (19-29) mEq/L BUN 40 H (7-20) mg/dL Creatinine 2.53 H (0.57-1.11) mg/dL Glucose 121 H (70-99) mg/dL Calcium 7.2 L (8.6-10.8) mg/dL Adrenal panel 04/25/16 Range/Units 04:21 Sodium 142 (136-145) mEq/L Potassium 3.7 (3.5-4.5) mEq/L Chloride 108 (98-109) mEq/L Carbon Dioxide 26 (19-29) mEq/L BUN 40 H (7-20) mg/dL Creatinine 2.53 H (0.57-1.11) mg/dL Glucose 121 H (70-99) mg/dL Calcium 7.2 L (8.6-10.8) mg/dL Total Bilirubin 0.3 (0.2-1.2) mg/dL AST 39 H (5-34) Units/L ALT 12 (0-55) Units/L Alkaline Phosphatase 71 (38-126) Units/L Albumin 1.5 L (3.5-5.0) g/dL Consult Discharge Plan - Plan Referrals: Sepideh Gallo MD [Primary Care Provider] - (PT IS GOING TO ECF NO PCP APPOINTMENT NEEDED) Chapo Escobar, CABLE MOCK UP ASSEMBLER [Advanced Practice Nurse] - 05/12/16 3:00 pm
--- NOTE | 2016-04-25 17:52 | Vascular/[facility] Progress Note ---
Date of Encounter: 04/25/16 Time of Encounter: 10:00 - Assessment and plan (1) Peripheral vascular disease Current Visit: Yes Status: Chronic Pt. is POD#1 Left above-knee amputation She tolerated the AKA well. Patient pain is much improved since AKA. Pain control PT/OT consider social service consult for inpatient rehab upon discharge I examined this patient and my medical decision-making was reviewed with the GENERAL UTILITY MAINTENANCE REPAIRER/PA/Advanced Practice Nurse/Resident Physician. I agree with the documented findings, disposition and treatment plan as described except to the extent set forth below. The patient is seen and evaluated with the resident on morning rounds. The L AKA stump is clean and dry and she has excellent pain relief Deacon Solorzano MD FACS - Subjective Procedure(s) Performed: AKA Interval history: Patient seen and examined. Baseline dementia. Appears to be more comfortable/ less pain today and since AKA. - Physical Examination General: Present: Well developed, Well nourished Cardiac: Present: Reg Rate and Rhythm Lungs: Present: Normal Breath Sounds Vascular: Present: Amputation(s) (left AKA) Abdomen: Present: Soft, Non-tender Results 04/25/16 04:21 04/26/16 04:05 Lab Results, Last 24 hours 04/25/16 04/25/16 04/25/16 04:21 04:21 04:21 WBC 4.3 Hgb 8.3 L Hct 28.2 L Plt Count 112 L INR 4.6 H* Sodium 142 Potassium 3.7 Chloride 108 Carbon Dioxide 26 BUN 40 H Creatinine 2.53 H Glucose 121 H Calcium 7.2 L Total Bilirubin 0.3 AST 39 H ALT 12 Alkaline Phosphatase 71 04/25/16 12:05 WBC Hgb Hct Plt Count INR 5.0 H* Sodium Potassium Chloride Carbon Dioxide BUN Creatinine Glucose Calcium Total Bilirubin AST ALT Alkaline Phosphatase Consult Discharge Plan - Plan Referrals: Sepideh Gallo MD [Primary Care Provider] - (PT IS GOING TO [facility] NO PCP APPOINTMENT NEEDED) Chapo Escobar CNP [Advanced Practice Nurse] - 05/12/16 3:00 pm
[2016-04-26 04:26] LABS: INR 4.3
[2016-04-26 04:28] LABS: Prothrombin Time 48.8 Seconds (9.4-12.1)
[2016-04-26 04:31] LABS: Calcium 7.6 mg/dL (8.6-10.8); Potassium 3.7 mEq/L (3.5-4.5)
[2016-04-26] MEDS: *HR* Morphine 2 MG/ML SYRINGE IVP PRN (06:17)
[2016-04-26] MEDS: *HR* LORazepam 0.5 MG TABLET PO PRN (06:17)
[2016-04-26 08:37] LABS: Eosinophils % 0.2 %; Hematocrit 27.9 % (35.3-44.9); Hemoglobin 8.2 g/dL (11.5-15.4); Lymphocytes # 0.8 K/mcL (0.6-4.6); Lymphocytes % 15.6 %; Mean Corpuscular HGB Conc 29.4 g/dL (31.6-35.5); Mean Corpuscular Hemoglobin 23.7 pg (28.0-33.3); Mean Corpuscular Volume 80.6 fL (83.0-100.0); Mean Platelet Volume 11.7 fL (9.4-12.4); Monocytes # 0.5 K/mcL (0.0-1.3); Neutrophils # 3.7 K/mcL (1.6-8.9); Platelet Count 127 K/mcL (140-400); Red Blood Count 3.46 M/mcL (3.82-4.97); Red Cell Distribution Width 19.1 % (11.5-14.5); Segmented Neutrophils % 74.2 %
--- NOTE | 2016-04-26 08:46 | Vascular/[facility] Progress Note ---
Date of Encounter: 04/26/16 Time of Encounter: 07:25 - Assessment and plan (1) Peripheral vascular disease Current Visit: Yes Status: Chronic Pt. is POD#1 Left above-knee amputation She tolerated the AKA well. Patient pain is much improved since AKA. Pain control PT/OT consider social service consult for inpatient rehab upon discharge I examined this patient and my medical decision-making was reviewed with the CONSUMER LOAN MANAGER/PA/Advanced Practice Nurse/Resident Physician. I agree with the documented findings, disposition and treatment plan as described except to the extent set forth below. The patient is seen and evaluated with the resident on morning rounds. The L AKA stump is clean and dry and she has excellent pain relief Deacon Solorzano MD FACS 04/26/2016 0845 The patient has had excellent results from surgery with pain relief on the left. Amputation is clean and dry. She is ready for extended care facility placement from a surgical standpoint. - Subjective Procedure(s) Performed: Left above-knee amputation Interval history: Patient seen and examined. Baseline dementia. Appears to be more comfortable/ less pain today and since AKA. 04/26/2016 0844 The patient was seen and evaluated today she is resting comfortably in seems to have excellent pain control. The left of the dictation stump is clean and dry. She is ready for extended care facility from surgery's standpoint Vital Signs, Last 4 Hours Temp Pulse Resp BP Pulse Ox 04/26/16 07:41 99 F 62 20 127/54 92 L - Physical Examination General: Present: No Apparent Distress Cardiac: Present: Reg Rate and Rhythm, Normal S1 and S2, No Murmur Lungs: Present: Normal Breath Sounds, No Wheeze, Rales, Rhonchi Skin: Present: Other (Incision clean and dry) Results 04/26/16 08:30 04/26/16 04:05 Lab Results, Last 24 hours 04/25/16 04/25/16 04/26/16 04:21 12:05 04:05 WBC Hgb Hct Plt Count INR 5.0 H* 4.3 Sodium 142 Potassium 3.7 Chloride 108 Carbon Dioxide 26 BUN 40 H Creatinine 2.53 H Glucose 121 H Calcium 7.2 L Total Bilirubin 0.3 AST 39 H ALT 12 Alkaline Phosphatase 71 04/26/16 04/26/16 04:05 08:30 WBC 5.0 Hgb 8.2 L Hct 27.9 L Plt Count 127 L INR Sodium 139 Potassium 3.7 Chloride 107 Carbon Dioxide 27 BUN 43 H Creatinine 2.93 H Glucose 178 H Calcium 7.6 L Total Bilirubin AST ALT Alkaline Phosphatase Consult Discharge Plan - Plan Referrals: Sepideh Gallo MD [Primary Care Provider] - (PT IS GOING TO ECF NO PCP APPOINTMENT NEEDED) Chapo Escobar, KEY PUNCH TEACHER [Advanced Practice Nurse] - 05/12/16 3:00 pm
[2016-04-26 08:50] LABS: Calcium 7.3 mg/dL (8.6-10.8); Potassium 3.8 mEq/L (3.5-4.5)
[2016-04-26] MEDS: amLODIPine 5 MG TABLET PO SCH (08:52)
[2016-04-26] MEDS: Nystatin POWDER 30 GM BOTTLE TP SCH ×2 (08:52→21:20)
[2016-04-26 08:57] LABS: Anisocytosis 2+ (Not Present); Microcytosis Present (Not Present); Platelet Estimate Decreased (Normal); Reactive Lymphocytes Present (Not Present)
[2016-04-26] MEDS: Pantoprazole 40 MG VIAL IVP SCH (09:15)
[2016-04-26] MEDS: MetroNIDAZOLE 500 MG/100 ML 500 MG/100 ML BAG IVPB SCH ×3 (09:15→23:47)
[2016-04-26] MEDS: Lactobacillus 1 EACH CAP.SPRINK PO SCH ×2 (09:17→21:19)
[2016-04-26] MEDS: Isosorbide MONOnitrate (24 HR) 60 MG TAB.ER.24H PO SCH (09:17)
[2016-04-26] MEDS: Insulin LISPRO 300 UNITS/3 ML VIAL SQ SCH ×4 (09:19→21:19)
[2016-04-26] MEDS ORDERED: D5% in 0.45% NACL 1,000 ML IVC SCH (09:20)
[2016-04-26 09:31] LABS: Bilirubin,Urine Small (Negative); Blood,Urine Small (Negative); Clarity,Urine Cloudy (Clear); Color,Urine Red (Yellow); Glucose,Urine (UA) Normal (Normal); Ketones,Urine Trace mg/dL (Negative); Leukocyte Esterase,Urine Moderate (Negative); Nitrite,Urine Positive (Negative); Protein,Urine >=300 mg/dL (Neg-Trace); Specific Gravity,Urine 1.026 (1.010-1.025); Urobilinogen,Urine Normal (Normal)
[2016-04-26 09:33] LABS: Bacteria,Urine None Seen per hpf (None-Few); Squamous Epithelial Cell,Urine Many per lpf (None-Few); WBC,Urine 50-100 per hpf (0-3)
[2016-04-26] MEDS: *HR* OxyCODONE/APAP 5/325 TABLET PO PRN (10:02)
[2016-04-26 10:04] LABS: Yeast,Urine Many per hpf (None Seen)
--- NOTE | 2016-04-26 11:03 | Nephrology Consult Note ---
Date of Encounter: 04/26/16 Time of Encounter: 11:09 Assessment and Plan (1) Acute on chronic renal failure Current Visit: Yes Status: Acute Patient with CKD IV with recent worsening of renal function. Admitted to hospital 6 days ago with toxic metabolic encephalopathy and UTI. Review of records shows that family states that her mental status has been declining for several weeks prior to admission and during this hospital stay has been waxing and waning. Patient noted to be at baseline yet uncooperative and moaning continuously during several encounters. Patient unable (?unwilling) to answer questions at this time, will open eyes to her name being called. Review of records does not show any previous nephrology notes. Had infected diabetic heel ulcer with severe PAD on admission to hospital which was ultimately treated with AKA. Currently POD #2 and renal function panel has shown decline the past 2 days. ---Of note, creatinine should decrease after an AKA due to decreased body mass, yet this patient's creatinine continues to rise. - No urgent CLINICAL TRIALS SPECIALIST indicated today; however, with her worsening labs and oliguria, it is likely that she will need dialysis in the next 24-48 hours. -check labs for possible cause of renal failure (2) CKD (chronic kidney disease) stage 4, GFR 15-29 ml/min Current Visit: Yes Status: Chronic (3) Diabetic nephropathy with proteinuria Current Visit: Yes Status: Chronic (4) Acute metabolic encephalopathy Current Visit: Yes Status: Resolved (5) Status post above knee amputation of left lower extremity Current Visit: Yes Status: Acute (6) Anemia Current Visit: Yes Status: Chronic Qualifiers: Qualified Code(s): N18.9 - Chronic kidney disease, unspecified; D63.1 - Anemia in chronic kidney disease (7) Foot ulcer due to secondary DM Current Visit: No Status: Acute right heel History of Present Illness - Reason for Consult Consult date: 04/26/16 Chronic Kidney Disease - History of Present Illness 75 yo white female with a PMH of hypertension, dyslipidemia, GERD, CKD IV, type II DM, DM nephropathy with proteinuria, DM peripheral neuropathy, h/o LLE DVT ( chronic warfarin tx), DM foot infection/ulceration, CAD/AMIx2, PAD/L-CEA/LLE fem art stent, osteoarthritis, osteoporosis, morbid obesity/deconditioning, former smoker who was admitted from a fpc due to altered mental status and diagnosed with toxic metabolic encephalopathy and UTI. During this hospitalization, the decision was made for a left above the knee amputation due to her chronic diabetic heel ulcer and severe peripheral artery disease that would impair wound healing. The patient's renal function panel has declined every day since surgery (a total of 2 days). Normally a limb amputation would lead to a decrease in creatinine due to decrease muscle mass, but Ms. Tinoco creatinine continues to rise daily. Past Med Surg Social Fam HX - Past Medical History Medical history: arthritis (Cervical spine osteomyelitis 2010. Chronic low back pain. Amputation left great toe. Left lateral foot diabetic ulcer.), asthma, atrial fibrillation, cardiomyopathy (LVEF A-35% 2010 echo. Mild MR. Grade 1 diastolic dysfunction.), CHF, COPD, coronary artery disease (Heart catheterization 2010 demonstrated mild LMCA disease 15% stenosis LAD 60% stenosis in midportion 60-70% stenosis and proximal to mid left circumflex. Proximal RCA occluded. Collaterals from first obtuse marginal to the distal right posterolateral artery. LVEF 45-50%.), DVT (Left leg DVT. Chronic Coumadin therapy.), diabetes (Right eye blindness.), GERD, GI bleed ( hemorrhoids.), hyperlipidemia, hypertension, myocardial infarction (x2), osteoporosis, peripheral artery disease (Left carotid artery endarterectomy. Left leg femoral artery stent.), renal disease, thyroid disease, venous stasis, other (Psoriatic arthritis. Psoriasis. Diabetic peripheral neuropathy.) Psychiatric history: anxiety, depression - Past Surgical History Surgical History: carotid endarterectomy, cataract (Bilateral cataracts.), cholecystectomy, orthopedic, other, other (Left great toe amputation 2009.), vascular surgery, LE stent (s) - Social History Smoking Status: Former smoker Packs per day: 1ppd x44yrs Smokeless Tobacco Status: No Alcohol use: none Drug use: none - Family History Son Adopted: [place]: MELBA Age: 32 Family Member Ethnicity: Non- Living Status: Age at : 32 Cause of : CHF Hx Family Cardiac Disorders: Yes Hx Family Respiratory Disorders: No Hx Family Cancer: Yes (MOTHER, GRANDDAUGHTERS X 2) Hx Family GI Disorders: No Hx Family Genitourinary Disorders: Yes Hx Family Endocrine Disorder: Yes Hx Family Musculoskeletal Disorders: No Hx Family Neuromuscular Disorders: No Hx Family Neurologic Disorders: No Hx Family HEENT Disorders: No Hx Family Autoimmune Disorders: Yes Hx Family Reproductive Disorders: No Hx Family Psychosocial Disorders: Yes Hx Family Medical Disorders: Yes Mother Family Member Ethnicity: Non- Living Status: Hx Family Cardiac Disorders: No Hx Family Respiratory Disorders: No Hx Family Cancer: Yes Hx Family GI Disorders: No Hx Family Endocrine Disorder: No Hx Family Neuromuscular Disorders: No Hx Family Neurologic Disorders: No Hx Family HEENT Disorders: No Hx Family Autoimmune Disorders: No Medications and Allergies Furosemide [Lasix] 40 mg PO BID 06/25/15 [History] Metoprolol Tartrate [Lopressor] 50 mg PO BID 06/25/15 [History] Multivit-Min/FA/Lycopen/Lutein [A Thru Z Select Multivit Tab] 1 tab PO DAILY [History] Omeprazole [PriLOSEC] 20 mg PO DAILY 06/25/15 [History] Paricalcitol [Zemplar] 1 mcg PO DAILY 06/25/15 [History] Amlodipine [Norvasc] 5 mg PO DAILY 03/09/16 [History] Gabapentin [Neurontin] 100 mg PO HS 03/09/16 [History] Insulin NPH Hum/Reg Insulin Hm [Humulin 70/30 Kwikpen] 28 unit SQ HS 03/09/16 [ History] Insulin NPH Hum/Reg Insulin Hm [Humulin 70/30 Kwikpen] 30 unit SQ QAM 03/09/16 [ History] Levothyroxine Sodium [Levoxyl] 200 mcg PO DAILY 03/09/16 [History] Lisinopril [Zestril] 20 mg PO DAILY 03/09/16 [History] Nystatin POWDER [Nystop] 1 appl TP BID 03/09/16 [History] Warfarin [Coumadin] 1.5 mg PO QPM 03/09/16 [History] LORazepam [Lorazepam] 0.5 mg PO BID PRN 03/30/16 [History] Mirtazapine [Remeron] 15 mg PO HS 03/30/16 [History] Nitroglycerin [Nitrostat] 0.4 mg SL QDPC PRN 03/30/16 [History] Tramadol HCl [Ultram] 50 mg PO QID PRN 03/30/16 [History] HYDROcodone/Acet 5/325 mg [[place] 5-325 mg] 1 tab PO Q8H PRN 04/01/16 [History] Meclizine HCl [Verticalm] 25 mg PO TID PRN 04/01/16 [History] Digoxin [Lanoxin] 0.125 mg PO DAILY #30 tablet 04/02/16 [Rx] Isosorbide MONOnitrate (24 HR) [Imdur] 60 mg PO DAILY #30 tab.er.24h 04/02/16 [ Rx] Allergies codeine Allergy (Verified 03/02/16 10:31) Hives Penicillins [PCN] Allergy (Verified 03/02/16 10:31) Hives Review of Systems ROS unobtainable: due to mental status Exam - Vital Signs Vital signs: Initial Vital Signs Pulse Ox 97 04/19/16 23:58 Vital Signs - Last 8 Hours Temp Pulse Resp BP Pulse Ox 04/26/16 07:41 99 F 62 20 127/54 92 L 04/26/16 03:18 99.1 F 67 20 136/59 90 L Intake and Output 04/25/16 04/26/16 04/26/16 23:59 07:59 15:59 Intake Total 1100 / 1100 100 / 100 Output Total 60 / 60 20 / 20 Balance 1040 / 1040 80 / 80 Intake: IV Fluids 1100 / 1100 100 / 100 D5% And 0.45% Nacl 1000 1000 / 1000 Ml Bag 1,000 ML @ 60 mls/ hr IVC .[id number] [facility] Rx#: [id number] Flagyl 500 MG/100 ML 500 100 / 100 100 / 100 mg In 100 ml @ 100 mls/hr IVPB Q8HR [facility] Rx#: [id number] Oral 0 / 0 0 / 0 Output: Catheter Other: Meal Dinner Percent of Meal Consumed 0% Weight 85 kg Blood Glucose* 182 152 Patient Weight 04/26/16 23:59 Weight 85 kg - General Appearance General appearance: obese EENT: mucous membranes moist Neck: supple Respiratory: clear Cardiology: no murmurs, normal S1, normal S2 Gastrointestinal: normoactive bowel sounds Additional Comments: right heel bandaged, left AKA bandaged Neurologic: confused, disoriented Additional Comments: A&O x1, opens eyes to name, does not answers questions or speak, moaning, calling for mommy Additional Comments: left AKA Psychiatric: agitated Results - Lab Results 04/26/16 08:30 04/26/16 08:30 Most recent lab results Calcium 7.3 mg/dL (8.6-10.8) L 04/26/16 08:30 Phosphorus 3.8 mg/dL (2.3-4.7) 04/20/16 01:31 Magnesium 1.5 mg/dL (1.6-2.6) L 04/20/16 01:31 Consult Discharge Plan - Plan Referrals: Sepideh Gallo MD [Primary Care Provider] - (PT IS GOING TO [facility] NO PCP APPOINTMENT NEEDED) Chapo Escobar, JOSIAS [Advanced Practice Nurse] - 05/12/16 3:00 pm
[2016-04-26 11:27] LABS: Protein/Creatinine Ratio,Urine 0.79 mg/mg (0-0.20)
[2016-04-26] MEDS: Levofloxacin 500 MG/100 ML 500 MG/100 ML BAG IVPB SCH (13:39)
--- NOTE | 2016-04-26 14:48 | Internal Med Progress Note ---
Date of Encounter: 04/26/16 Time of Encounter: 14:47 - Assessment and plan (1) Status post above knee amputation of left lower extremity Current Visit: Yes Status: Acute (2) Non-ST elevation myocardial infarction (NSTEMI) due to mismatch of myocardial oxygen supply and demand Current Visit: Yes Status: Acute (3) Acute metabolic encephalopathy Current Visit: Yes Status: Resolved (4) Acute on chronic renal failure Current Visit: Yes Status: Acute (5) Diabetic foot ulcer associated with type 2 diabetes mellitus, with fat layer exposed Current Visit: Yes Status: Chronic Qualifiers: Diabetic foot ulcer location: unspecified part of foot Laterality: left Qualified Code(s): E11.621 - Type 2 diabetes mellitus with foot ulcer; L97.522 - Non-pressure chronic ulcer of other part of left foot with fat layer exposed (6) DM2 (diabetes mellitus, type 2) Current Visit: Yes Status: Chronic Qualifiers: Diabetes mellitus complication status: with kidney complications Diabetes mellitus complication detail: with chronic kidney disease Diabetes mellitus long-term insulin use: without long-term use Chronic kidney disease stage: stage 3 (moderate) Qualified Code(s): E11.22 - Type 2 diabetes mellitus with diabetic chronic kidney disease; N18.3 - Chronic kidney disease, stage 3 ( moderate) (7) Supratherapeutic INR Current Visit: No Status: Acute (8) Hypothyroidism Current Visit: Yes Status: Chronic Qualifiers: Hypothyroidism type: unspecified Qualified Code(s): E03.9 - Hypothyroidism , unspecified (9) Congestive heart failure Current Visit: Yes Status: Chronic Qualifiers: Congestive heart failure type: combined Congestive heart failure chronicity : acute on chronic Qualified Code(s): I50.43 - Acute on chronic combined systolic (congestive) and diastolic (congestive) heart failure (10) Microcytic hypochromic anemia Current Visit: Yes Status: Chronic Assessment and plan: 75 year old femlae with pmh of CAD,PAD, DM admitted with diabetic foot ulcer with abscess, s/p AKA with course complicated by LINDA on CKD. # Diabetic foot infection s/p AKA on 04/24/16: Admitted with infection of the left heel, ulcer, severe PAD, s/p above knee amputation POD#2, doing well post surgery, vascular surgery following. High risk on IV dilaudid and PO percocet for pain control with baseline dementia and behavioural abnormalities. On IV abx Levaquin and flagyl. Blood c/s NTD. # LINDA on CKD Stage 4: Baseline CKD with worsening renal function and minimal urine ouput. Remains on low rate IV fluids. Prerenal vs cardiorenal. Was on lasix BID at home. Volume status questionable. Get BNP. Nephrology consulted. d/c Morphine in setting of LINDA, d/c ACEI. # Acute metabolic/toxic encephalopathy: In setting of sepsis secondary to foot abscess, uremia and narcotics. Montior closely # NSTEMI: NSTEMI this admission, was evaluated by cardiology, currently managed medically. On BB and statin. Aspirin remains on hold in setting of anemia. Will try to keep Hb around 9 in setting of acute TN. # Anemia, acute on chronic in setting of blood loss: Hb around 8.4. Aspirin and coumadin on held. Liekly related to CKD and acute blood loss in setting of surgery. Will try to keepa round 8-9 given NSTEMI this admission. # Paroxysmal Afib: On rate control with BB and AC with coumadin. Coumadin currently held in setting of supratherapeutic INR. INR 4.2 today, continue to hold. # Coagulopathy with elevated INR: Hold COumadin, montior closely in setting of antibiotic use. # Compensated systolic and diastolic heart failure: Not receiving diurectics per records. Hold ACEI in setting of worsening renal function. Limited echo this admission shows minimal decrease in EF without any other significant defects. # DM Type 2 with complications: Monitor BGM AC and HS , on SSI. # Hypothyroidism: Continue synthroid # DVT prophylaxis: Coumadin held in setting of LINDA - Time Spent With Patient Greater than 35 minutes - Subjective Interval history: Patient seen and examined at bedside. She is alert, not oriented. Reports that the pain is better with medicines. Labs from morning reviewed, creatinine tends to rise up with decreased urine output. - Constitutional Vitals: Temp Pulse Resp BP Pulse Ox 98.9 F 48 20 113/53 99 04/26/16 11:23 04/26/16 11:23 04/26/16 11:23 04/26/16 11:23 04/26/16 11:23 General appearance: Present: A&O X 2, answers questions appropriately. Absent: cooperative - Other Additional findings: General: Alert, not oriented Resp: Decreased breath sounds at bases. NO crackles or wheezes Cardiac: Normal heart sounds GI: Abdomen soft, not tender MSK: Amputation site appears clean Neuro: No focal deficits. Skin: No rashes Internal Medicine: Result - Labs CBC & Chem 7: 04/26/16 08:30 04/26/16 08:30 Labs: Short CBC 04/26/16 Range/Units 08:30 WBC 5.0 (4.3-11.1) K/mcL Hgb 8.2 L (11.5-15.4) g/dL Hct 27.9 L (35.3-44.9) % Plt Count 127 L (140-400) K/mcL Neutrophils # 3.7 (1.6-8.9) K/mcL BMP 04/26/16 04/26/16 04:05 08:30 Sodium 139 140 Potassium 3.7 3.8 Chloride 107 108 Carbon Dioxide 27 25 BUN 43 H 43 H Creatinine 2.93 H 2.99 H Glucose 178 H 181 H Calcium 7.6 L 7.3 L Urine 04/26/16 Range/Units 09:15 Urine Color Red A (Yellow) Urine Clarity Cloudy A (Clear) Urine pH 5.0 (5.0-8.0) pH Units Ur Specific [place] 1.026 H (1.010-1.025) Urine Protein >=300 H (Neg-Trace) mg/dL Urine Glucose (UA) Normal (Normal) mg/dL - ABG Interpretation ABG results: PT/INR, D-dimer PT 48.8 Seconds (9.4-12.1) H* 04/26/16 04:05 D-Dimer 723 ng/mLFEU (0-500) H 04/20/16 09:50 Consult Discharge Plan - Plan Referrals: Sepideh Gallo MD [Primary Care Provider] - (PT IS GOING TO ECF NO PCP APPOINTMENT NEEDED) Chapo Escobar CNP [Advanced Practice Nurse] - 05/12/16 3:00 pm
[2016-04-26] MEDS: D5% in 0.45% NACL 1,000 ML IVC SCH (14:57)
[2016-04-26] MEDS ORDERED: Furosemide 40 MG in 0.9 % Sodium Chloride 50 ML IVPB ONE (15:21)
[2016-04-26] MEDS: Furosemide 40 MG in 0.9 % Sodium Chloride 50 ML IVPB SCH (22:37)
[2016-04-27] MEDS: *HR* HYDROmorphone (PF) 1 MG/ML SYRINGE IVP PRN ×2 (00:45→20:36)
[2016-04-27 05:28] LABS: Ionized Calcium 1.17 mmol/L (1.15-1.35)
[2016-04-27 05:40] LABS: Calcium 8.3 mg/dL (8.6-10.8); Magnesium 1.8 mg/dL (1.6-2.6); Phosphorous 3.9 mg/dL (2.3-4.7); Potassium 4.2 mEq/L (3.5-4.5); Uric Acid 15.1 mg/dL (2.6-6.0)
[2016-04-27 05:41] LABS: Albumin 1.6 g/dL (3.5-5.0)
[2016-04-27 05:44] LABS: INR 2.5; Prothrombin Time 27.2 Seconds (9.4-12.1)
[2016-04-27 08:09] LABS: Basophils % 0.2 %; Eosinophils % 0.6 %; Hematocrit 27.5 % (35.3-44.9); Hemoglobin 8.5 g/dL (11.5-15.4); Immature Granulocytes % 1.5 % (0-4); Lymphocytes # 0.8 K/mcL (0.6-4.6); Lymphocytes % 15.6 %; Mean Corpuscular HGB Conc 30.9 g/dL (31.6-35.5); Mean Corpuscular Hemoglobin 24.5 pg (28.0-33.3); Mean Corpuscular Volume 79.3 fL (83.0-100.0); Mean Platelet Volume 12.3 fL (9.4-12.4); Monocytes # 0.4 K/mcL (0.0-1.3); Monocytes % 7.9 %; Neutrophils # 3.9 K/mcL (1.6-8.9); Platelet Count 147 K/mcL (140-400); Red Blood Count 3.47 M/mcL (3.82-4.97); Red Cell Distribution Width 19.1 % (11.5-14.5); Segmented Neutrophils % 74.2 %
[2016-04-27] MEDS: Insulin LISPRO 300 UNITS/3 ML VIAL SQ SCH ×3 (08:18→17:10)
--- NOTE | 2016-04-27 08:33 | Internal Med Progress Note ---
Date of Encounter: 04/27/16 Time of Encounter: 08:27 - Assessment and plan (1) Status post above knee amputation of left lower extremity Current Visit: Yes Status: Acute (2) Non-ST elevation myocardial infarction (NSTEMI) due to mismatch of myocardial oxygen supply and demand Current Visit: Yes Status: Acute (3) Acute metabolic encephalopathy Current Visit: Yes Status: Resolved (4) Acute on chronic renal failure Current Visit: Yes Status: Acute (5) Diabetic foot ulcer associated with type 2 diabetes mellitus, with fat layer exposed Current Visit: Yes Status: Chronic Qualifiers: Diabetic foot ulcer location: unspecified part of foot Laterality: left Qualified Code(s): E11.621 - Type 2 diabetes mellitus with foot ulcer; L97.522 - Non-pressure chronic ulcer of other part of left foot with fat layer exposed (6) DM2 (diabetes mellitus, type 2) Current Visit: Yes Status: Chronic Qualifiers: Diabetes mellitus complication status: with kidney complications Diabetes mellitus complication detail: with chronic kidney disease Diabetes mellitus fdc insulin use: without fdc use Chronic kidney disease stage: stage 3 (moderate) Qualified Code(s): E11.22 - Type 2 diabetes mellitus with diabetic chronic kidney disease; N18.3 - Chronic kidney disease, stage 3 ( moderate) (7) Supratherapeutic INR Current Visit: No Status: Acute (8) Hypothyroidism Current Visit: Yes Status: Chronic Qualifiers: Hypothyroidism type: unspecified Qualified Code(s): E03.9 - Hypothyroidism , unspecified (9) Congestive heart failure Current Visit: Yes Status: Chronic Qualifiers: Congestive heart failure type: combined Congestive heart failure chronicity : acute on chronic Qualified Code(s): I50.43 - Acute on chronic combined systolic (congestive) and diastolic (congestive) heart failure (10) Microcytic hypochromic anemia Current Visit: Yes Status: Chronic Assessment and plan: 75 year old female with pmh of CAD,PAD, DM admitted with diabetic foot ulcer with abscess, s/p AKA with course complicated by LINDA on CKD. # Diabetic foot infection s/p AKA on 04/24/16: Admitted with infection of the left heel, ulcer, severe PAD, s/p above knee amputation POD#3, doing well post surgery, vascular surgery following. High risk on IV dilaudid and PO percocet for pain control with baseline dementia and behavioural abnormalities. On IV abx Levaquin and flagyl. Blood c/s negative. will deescalate abx if clinically better tomorrow # Right foot ulcer: Pt has PAD of right LE with dimnished pulses and ulcers. Vascular surgery following. # LINDA on CKD Stage 4: Baseline CKD with worsening renal function and minimal urine ouput. Volume overloaded. Appears to be cardiorenal. On lasix without any response. Nephrology planning for dialysis soon. # Acute metabolic/toxic encephalopathy: In setting of sepsis secondary to foot abscess, uremia and narcotics. Montior closely # NSTEMI: NSTEMI this admission, was evaluated by cardiology, currently managed medically. On BB and statin. Aspirin remains on hold in setting of anemia. Will try to keep Hb around 9 in setting of acute MD. # Anemia, acute on chronic in setting of blood loss: Hb around 8.4. Aspirin and coumadin on held. Likely related to CKD and acute blood loss in setting of surgery. Will try to keep around 8-9 given NSTEMI this admission. # Paroxysmal Afib: On rate control with BB and AC with coumadin. Coumadin was held. Restart tomorrow after cath placement for dialysis # Coagulopathy with elevated INR: INR 2.5 today, continue to hold Coumadin today in view of procedures for initiating dialysis. Restart tomorrow # Acute decompensated systolic and diastolic heart failure: In setting of volume overload, poor renal output. On lasix without any significant increase in urine output Plan to be started on dialysis soon. Hold ACEI in setting of worsening renal function. Limited echo this admission shows minimal decrease in EF without any other significant defects. Cardiology consulted # DM Type 2 with complications: Monitor BGM AC and HS , on SSI. # Hypothyroidism: Continue synthroid # DVT prophylaxis: Coumadin held in setting of supratherapeutic INR. Hold in view of procedures needed to be started on dialysis - Time Spent With Patient 25 - 35 minutes - Subjective Interval history: Patient was seen and examined at bedside. She is alert and orineted this morning and repsonding to my questions appropriately. complaints of pain. Urine output remains minimal. Lapse from this morning to refute, hemoglobin stable at 8.5, INR trending down to 2.5, creatinine has increased to 3.39 with BUN of 49. Magnesium of 1.8 and phosphorus of 3.9. BNP from yesterday elevated at 1159. Urine analysis from positive. - Constitutional Vitals: Temp Pulse Resp BP Pulse Ox 97.8 F 73 18 145/56 93 L 04/27/16 06:49 04/27/16 07:45 04/27/16 06:49 04/27/16 06:49 04/27/16 07:45 General appearance: Present: A&O X 1, answers questions appropriately (n). Absent: cooperative - Head Head exam: Present: atraumatic, normocephalic - Eye Eye exam: Present: PERRL, conjuntiva pink, sclera anicteric Pupils: Present: PERRL - Neck Neck exam general surgery: Present: supple, trachea midline. Absent: lymphadenopathy - Respiratory Respiratory exam: Present: CTAB. Absent: accessory muscle use, rales, rhonchi, wheezes - Cardiovascular Cardiovascular exam: Present: RRR, +S1, +S2. Absent: diastolic murmur, gallop, rubs, systolic murmur - GI/Abdominal GI/Abdominal exam: Present: normal bowel sounds, soft, no peritoneal signs. Absent: distended, tenderness - Extremities Exam Extremities exam: Present: warm, radial pulses palpable and symetrical. Absent : calf tenderness, cyanotic, normal inspection (left AKA ), pedal edema - Neurological Exam Neurological exam: Present: CN II-XII intact, oriented X3, no focal deficits. Absent: pronater drift, facial droop, speech deficit - Skin Skin exam: Present: dry, intact Internal Medicine: Result - Labs CBC & Chem 7: 04/27/16 07:55 04/27/16 04:18 Labs: Short CBC 04/26/16 04/27/16 Range/Units 08:30 07:55 WBC 5.0 5.2 (4.3-11.1) K/mcL Hgb 8.2 L 8.5 L (11.5-15.4) g/dL Hct 27.9 L 27.5 L (35.3-44.9) % Plt Count 127 L 147 (140-400) K/mcL Neutrophils # 3.7 3.9 (1.6-8.9) K/mcL BMP 04/26/16 04/27/16 08:30 04:18 Sodium 140 141 Potassium 3.8 4.2 Chloride 108 107 Carbon Dioxide 25 26 BUN 43 H 49 H Creatinine 2.99 H 3.39 H Glucose 181 H 148 H Calcium 7.3 L 8.3 L Liver Function 04/27/16 Range/Units 04:18 Albumin 1.6 L (3.5-5.0) g/dL Urine 04/26/16 Range/Units 09:15 Urine Color Red A (Yellow) Urine Clarity Cloudy A (Clear) Urine pH 5.0 (5.0-8.0) pH Units Ur Specific [place] 1.026 H (1.010-1.025) Urine Protein >=300 H (Neg-Trace) mg/dL Urine Glucose (UA) Normal (Normal) mg/dL - ABG Interpretation ABG results: PT/INR, D-dimer PT 27.2 Seconds (9.4-12.1) H 04/27/16 04:18 D-Dimer 723 ng/mLFEU (0-500) H 04/20/16 09:50 - VTE Contraindication No Overlap Therapy: Medical contraindication Consult Discharge Plan - Plan Additional Instructions: Cleanse incision with soap and water and pat dry daily Non-weight bearing to Left surgical incision PT/OT daily Referrals: Sepideh Gallo MD [Primary Care Provider] - (PT IS GOING TO ECF NO PCP APPOINTMENT NEEDED) Chapo Escobar CNP [Advanced Practice Nurse] - 05/12/16 3:00 pm Magnolia Garcia CNP [Advanced Practice Nurse] - 05/09/16 10:15 am (surgery follow-up)
[2016-04-27] MEDS ORDERED: 0.9 % Sodium Chloride 2,000 ML ONE (09:27)
[2016-04-27] MEDS: MetroNIDAZOLE 500 MG/100 ML 500 MG/100 ML BAG IVPB SCH ×2 (10:28→17:16)
[2016-04-27] MEDS: Furosemide 40 MG in 0.9 % Sodium Chloride 50 ML IVPB SCH (10:29)
[2016-04-27] MEDS: Pantoprazole 40 MG VIAL IVP SCH (10:31)
[2016-04-27] MEDS: Isosorbide MONOnitrate (24 HR) 60 MG TAB.ER.24H PO SCH (10:32)
[2016-04-27] MEDS: amLODIPine 5 MG TABLET PO SCH (10:32)
[2016-04-27] MEDS: Lactobacillus 1 EACH CAP.SPRINK PO SCH ×2 (10:32→20:35)
[2016-04-27] MEDS: Nystatin POWDER 30 GM BOTTLE TP SCH (10:34)
--- NOTE | 2016-04-27 10:50 | Vascular/Endovas Progress Note ---
Date of Encounter: 04/27/16 Time of Encounter: 10:30 - Assessment and plan (1) Peripheral vascular disease Current Visit: Yes Status: Chronic POD #[address] Solorzano May transfer to [facility] with patient medically stable Continue PT/OT daily Supportive care/pain control I examined this patient and my medical decision-making was reviewed with the STOCK LIFTER/PA/Advanced Practice Nurse/Resident Physician. I agree with the documented findings, disposition and treatment plan as described except to the extent set forth below. The patient was seen and evaluated. She is stable after left above-knee amputation and maybe transfer to extended care facility when medically stable Deacon Solorzano MD FACS - Subjective Procedure(s) Performed: Left AKA Interval history: Patient is resting comfortably in bed and states that her pain is better controlled today. Vital Signs, Last 4 Hours Temp Pulse Resp BP Pulse Ox 04/27/16 10:27 66 100 04/27/16 07:45 73 93 L 04/27/16 06:49 97.8 F 73 18 145/56 96 - Physical Examination General: Present: Conversant, No Apparent Distress HEENT: Present: Atraumatic, Normocephaly, Trachea midline Cardiac: Present: Reg Rate and Rhythm Lungs: Present: Normal Breath Sounds Neuro: Present: Alert and responsive Abdomen: Present: Soft, Non-tender Skin: Present: Wound/ulcer(s) (RLE pressure ulcers; Left AKA incision C/D/I) Results 04/27/16 07:55 04/27/16 04:18 Lab Results, Last 24 hours 04/26/16 04/27/16 04/27/16 08:30 04:18 04:18 WBC Hgb Hct Plt Count INR 2.5 Sodium 141 Potassium 4.2 Chloride 107 Carbon Dioxide 26 BUN 49 H Creatinine 3.39 H Glucose 148 H Calcium 8.3 L Magnesium 1.8 B-Natriuretic Peptide 1159 H 04/27/16 07:55 WBC 5.2 Hgb 8.5 L Hct 27.5 L Plt Count 147 INR Sodium Potassium Chloride Carbon Dioxide BUN Creatinine Glucose Calcium Magnesium B-Natriuretic Peptide Consult Discharge Plan - Plan Additional Instructions: Cleanse incision with soap and water and pat dry daily Non-weight bearing to Left surgical incision PT/OT daily Referrals: Sepideh Gallo MD [Primary Care Provider] - (PT IS GOING TO [facility] NO PCP APPOINTMENT NEEDED) Chapo Escobar CNP [Advanced Practice Nurse] - 05/12/16 3:00 pm Magnolia Garcia CNP [Advanced Practice Nurse] - 05/09/16 10:15 am (surgery follow-up)
[2016-04-27 11:04] LABS: Hepatitis B Surface Antibody 0.34 mIU/mL; Hepatitis B Surface Antigen Nonreactive (Nonreactive)
--- NOTE | 2016-04-27 11:50 | Nephrology Progress Note ---
Date of Encounter: 04/27/16 Time of Encounter: 11:48 - Assessment and Plan (1) Acute on chronic renal failure Current Visit: Yes Status: Acute patient's renal function continues to decline, plan for BAK[employer]PER today (2) CKD (chronic kidney disease) stage 4, GFR 15-29 ml/min Current Visit: Yes Status: Chronic (3) Diabetic nephropathy with proteinuria Current Visit: Yes Status: Chronic (4) Acute metabolic encephalopathy Current Visit: Yes Status: Resolved (5) Status post above knee amputation of left lower extremity Current Visit: Yes Status: Acute (6) Anemia Current Visit: Yes Status: Chronic Qualifiers: Anemia type: other cause Other causes of anemia: chronic disease, kidney Qualified Code(s): N18.9 - Chronic kidney disease, unspecified; D63.1 - Anemia in chronic kidney disease (7) Foot ulcer due to secondary DM Current Visit: No Status: Acute Subjective Principal diagnosis: acute on chronic kidney disease Interval history: Patient seen and examined. More alert today. Talking and answering questions somewhat appropriately. Objective - Vital Signs Vital signs: Vital Signs Temp Pulse Resp BP Pulse Ox 04/27/16 10:27 66 100 04/27/16 07:45 73 93 L 04/27/16 06:49 97.8 F 73 18 145/56 96 04/27/16 03:32 98.6 F 68 17 146/55 100 04/26/16 23:47 98.8 F 74 16 136/67 100 04/26/16 19:53 98.6 F 63 17 119/61 97 04/26/16 16:00 99.0 F 53 18 110/52 98 04/26/16 14:59 57 95 Intake and Output 04/26/16 04/27/16 04/27/16 23:59 07:59 15:59 Intake Total 154 / 154 100 / 100 Output Total 50 / 50 50 / 50 Balance 104 / 104 50 / 50 Intake: IV Fluids 154 / 154 100 / 100 Lasix 40 MG In 0.9 % 54 / 54 Sodium Chloride 50 ML @ 100 mls/hr IVPB BID ENE Rx#:[id number] Flagyl 500 MG/100 ML 500 100 / 100 100 / 100 mg In 100 ml @ 100 mls/hr IVPB Q8HR ENE Rx#: [id number] Oral 0 / 0 Output: Urine 50 / 50 50 / 50 Urethral (Ortega) 0 / 0 Other: Meal Breakfast Percent of Meal Consumed 0% Weight 86 kg Blood Glucose* 144 119 123 Patient Weight 04/27/16 23:59 Weight 86 kg - General Appearance General appearance: Present: well-developed, well-nourished, appears started age Neck: Present: no JVD, supple Respiratory: Present: clear Cardiology: Present: no murmurs, no rub, no gallops, no edema, regular rate, regular rhythm, normal S1, normal S2 Additional Comments: bruising along bilateral upper extremities L>R Neurologic: Present: no focal deficit Additional Comments: A&Ox2 Musculoskeletal: Present: no erythema, no cyanosis, no clubbing Additional Comments: left AKA, right heel bandaged Psychiatric: Present: cooperative Additional Comments: seemed wary of physicians today - Lab 04/27/16 07:55 04/27/16 04:18 Most recent lab results Calcium 8.3 mg/dL (8.6-10.8) L 04/27/16 04:18 Phosphorus 3.9 mg/dL (2.3-4.7) 04/27/16 04:18 Magnesium 1.8 mg/dL (1.6-2.6) 04/27/16 04:18 Urine Creatinine 247 mg/dL 04/26/16 09:15 Urine Total Protein 195 mg/dL (1-14) H 04/26/16 09:15 Consult Discharge Plan - Plan Additional Instructions: Cleanse incision with soap and water and pat dry daily Non-weight bearing to Left surgical incision PT/OT daily Referrals: Sepideh Gallo MD [Primary Care Provider] - (PT IS GOING TO [facility] NO PCP APPOINTMENT NEEDED) Chapo Escobar CNP [Advanced Practice Nurse] - 05/12/16 3:00 pm Magnolia Garcia CNP [Advanced Practice Nurse] - 05/09/16 10:15 am (surgery follow-up)
[2016-04-27] MEDS: *HR* OxyCODONE/APAP 5/325 TABLET PO PRN (12:15)
--- NOTE | 2016-04-27 12:49 | Podiatry Progress Note ---
Date of Encounter: 04/27/16 Time of Encounter: 11:30 - Assessment and Plan (1) CKD (chronic kidney disease) stage 4, GFR 15-29 ml/min Current Visit: Yes Status: Chronic Examined at bedside Vascular please re-evaluate- presence of worsening and new ulcerations to RLE in presence of diminished SRAVANTHI of RLE. Please advise Right: The right posterior tibial pressure is 69 mmHg with an index of 0.42. . PVR: Right: The PVR waveforms are severely diminished in the right ankle. At this time- please continue to offload heel- continue bulk dressing and use of prevalon boot Frequent turns Nurse states patient to start HD once permacath has been placed due to elevated creatine Nurse states there is minimal family involved with care- patient has dementia and worsening mental status Will need ECF placement after discharge (2) DM2 (diabetes mellitus, type 2) Current Visit: Yes Status: Chronic Qualifiers: Diabetes mellitus complication status: with kidney complications Diabetes mellitus complication detail: with chronic kidney disease Diabetes mellitus termite technician insulin use: without termite technician use Chronic kidney disease stage: stage 3 (moderate) Qualified Code(s): E11.22 - Type 2 diabetes mellitus with diabetic chronic kidney disease; N18.3 - Chronic kidney disease, stage 3 ( moderate) (3) Foot ulcer due to secondary DM Current Visit: No Status: Acute Dressings removed and ulcerations assessed at bedside- new dressing replaced SRAVANTHI's were completed at last visit and patient never followed up- consult to vasular surgery for recommendation - please call- needs to be seen ANDERZ Bone and tendon exposed- will consider possible I&D in AM per after evaluation from vascular Orders placed for ESR, CRP in AM Daily dressing changes with adaptic, 4x4 and kerlex and mepilex to bilateral heels for protection Orders for bolivar boots to alleviate pressure from ankles and heels Please obtain wound cultures from left ankle Sw to manage for patient living situation, unable to care for self at home- (4) Peripheral vascular disease Current Visit: Yes Status: Chronic Subjective Principal diagnosis: acute on chronic kidney disease Interval history: Mrs. Olivia is a patient known per podiatry. She was recently admitted, evaluated and underwent an AKA of the left lower extremity per Dr. Solorzano on April 23. patients surgical line appears to be healing without issue. She states that she has no pain now, however new ulcerations are noted to right lower extremity. Patient is confused on arrival. Not oriented to person place or time. Nurse states patient has been confused and refusing turns. Patient is not wearing during boot to right lower extremity but nurse states she has been wearing it. the patient is to go for HD catheter insertion today and to be placed on inpatient dialysis due to a creatinine of 3.39. Objective - Vital Signs Vital Signs: Vital Signs Temp Pulse Resp BP Pulse Ox 04/27/16 10:27 66 100 04/27/16 07:45 73 93 L 04/27/16 06:49 97.8 F 73 18 145/56 96 04/27/16 03:32 98.6 F 68 17 146/55 100 04/26/16 23:47 98.8 F 74 16 136/67 100 04/26/16 19:53 98.6 F 63 17 119/61 97 04/26/16 16:00 99.0 F 53 18 110/52 98 04/26/16 14:59 57 95 Intake and Output 04/26/16 04/27/16 04/27/16 23:59 07:59 15:59 Intake Total 154 / 154 100 / 100 Output Total 50 / 50 50 / 50 Balance 104 / 104 50 / 50 Intake: IV Fluids 154 / 154 100 / 100 Lasix 40 MG In 0.9 % 54 / 54 Sodium Chloride 50 ML @ 100 mls/hr IVPB BID ENE Rx#:[id number] Flagyl 500 MG/100 ML 500 100 / 100 100 / 100 mg In 100 ml @ 100 mls/hr IVPB Q8HR ENE Rx#: [id number] Oral 0 / 0 Output: Urine 50 / 50 50 / 50 Urethral (Ortega) 0 / 0 Other: Meal Breakfast Percent of Meal Consumed 0% Weight 86 kg Blood Glucose* 144 119 123 Patient Weight 04/27/16 23:59 Weight 86 kg - Exam Exam: General Examination: CONSTITUTIONAL: Alert and awake. Not oriented to person place or time. hx of dementia EXTREMITIES: CFT 3 seconds all toes. Edema +1 pulses non palpable to RLE SKIN: Skin with decreased turgor, decreased subcutaneous tissue, skin thin and shiny with trophic changes associated with comorbidities as described in history.. NEUROLOGIC: Minimal sensation to moderate touch Skin ulcerations: Previously noted ulceration to LLE amputated with AKA Right foot Right heel (medial) - 3.2cmx2.8cm area which was closed with eschar tissue, now open measuring 3.5x3cm with areas of yellow slough 10%, eschar 40% and granulation 50%. Right heel posterior area- area of purple non blanchable discoloration measuring [id number]. No depth. boggy to touch Right lateral foot - area of purple non blanchable discoloration - Lab Result Diagrams: 04/27/16 07:55 04/27/16 04:18 Labs: Abnormal lab results RBC 3.47 M/mcL (3.82-4.97) L 04/27/16 07:55 Hgb 8.5 g/dL (11.5-15.4) L 04/27/16 07:55 Hct 27.5 % (35.3-44.9) L 04/27/16 07:55 MCV 79.3 fL (83.0-100.0) L 04/27/16 07:55 MCH 24.5 pg (28.0-33.3) L 04/27/16 07:55 MCHC 30.9 g/dL (31.6-35.5) L 04/27/16 07:55 RDW 19.1 % (11.5-14.5) H 04/27/16 07:55 Band Neutrophils % 6.0 % (0-4) H 04/25/16 04:21 Reactive Lymphocytes Present (Not Present) A 04/26/16 08:30 Platelet Estimate Decreased (Normal) L 04/26/16 08:30 Immature Plt Fraction 7.8 % (1.1-6.1) H 04/22/16 06:20 Anisocytosis 2+ (Not Present) A 04/26/16 08:30 Microcytosis Present (Not Present) A 04/26/16 08:30 Ovalocytes 1+ (Not Present) A 04/24/16 03:47 ESR 84 mm/hr (0-15) H 04/22/16 06:20 PT 27.2 Seconds (9.4-12.1) H 04/27/16 04:18 APTT 43.3 Seconds (26.0-36.0) H 04/23/16 04:32 Fibrinogen 537 mg/dL (169-393) H 04/20/16 09:50 D-Dimer 723 ng/mLFEU (0-500) H 04/20/16 09:50 VBG pH 7.43 pH Units (7.32-7.42) H 04/20/16 09:50 VBG pCO2 54 mmHg (41-51) H 04/20/16 09:50 VBG pO2 46 mmHg (25-40) H 04/20/16 09:50 VBG HCO3 35.8 mEq/L (21-27) H 04/20/16 09:50 BUN 49 mg/dL (7-20) H 04/27/16 04:18 Creatinine 3.39 mg/dL (0.57-1.11) H 04/27/16 04:18 Est GFR ( Amer) 16 (> 60) L 04/27/16 04:18 Est GFR (Non-Af Amer) 13 (> 60) L 04/27/16 04:18 Glucose 148 mg/dL (70-99) H 04/27/16 04:18 POC Glucose 144 (58-89) H 04/26/16 19:59 Hemoglobin A1c 6.2 % (-5.6) H 04/20/16 01:31 Calculated Osmolality 308 (280-300) H 04/27/16 04:18 Uric Acid 15.1 mg/dL (2.6-6.0) H 04/27/16 04:18 Calcium 8.3 mg/dL (8.6-10.8) L 04/27/16 04:18 AST 39 Units/L (5-34) H 04/25/16 04:21 Creatine Kinase 538 Units/L (29-168) H 04/27/16 04:18 Troponin I 0.69 ng/mL (0-0.03) H* 04/20/16 17:30 C-Reactive Protein 90 mg/L (Less than 5) H 04/22/16 13:20 B-Natriuretic Peptide 1159 pg/mL (0-100) H 04/26/16 08:30 Serum Total Protein 4.7 g/dL (6.0-8.3) L 04/25/16 04:21 Albumin 1.6 g/dL (3.5-5.0) L 04/27/16 04:18 Albumin/Globulin Ratio 0.5 (1.1-2.2) L 04/25/16 04:21 HDL Cholesterol 31 mg/dL (40-59) L 04/20/16 01:31 Free T3 1.38 pg/mL (1.71-3.71) L 04/20/16 09:50 Urine Color Red (Yellow) A 04/26/16 09:15 Urine Clarity Cloudy (Clear) A 04/26/16 09:15 Ur Specific [place] 1.026 (1.010-1.025) H 04/26/16 09:15 Urine Protein >=300 mg/dL (Neg-Trace) H 04/26/16 09:15 Urine Ketones Trace mg/dL (Negative) H 04/26/16 09:15 Urine Blood Small (Negative) H 04/26/16 09:15 Urine Nitrite Positive (Negative) A 04/26/16 09:15 Urine Bilirubin Small (Negative) H 04/26/16 09:15 Ur Leukocyte Esterase Moderate (Negative) H 04/26/16 09:15 Urine Microscopic RBC 5-15 per hpf (0-3) H 04/26/16 09:15 Urine Microscopic WBC 50-100 per hpf (0-3) H 04/26/16 09:15 Ur Squamous Epith Cells Many per lpf (None-Few) H 04/26/16 09:15 Hyaline Casts Many per lpf (None-Few) H 04/20/16 11:00 Urine Yeast Many per hpf (None Seen) H 04/26/16 09:15 Protein/Creatinin Ratio 0.79 mg/mg (0-0.20) H 04/26/16 09:15 Urine Total Protein 195 mg/dL (1-14) H 04/26/16 09:15 Urine Opiates Screen Positive ng/mL (Vzqxzo=349) H 04/20/16 12:30 Microbiology, Last 48 Hours 04/21/16 11:30 Blood Culture - Final Peripheral Venipuncture No growth. 04/20/16 09:50 Blood Culture - Final Peripheral Venipuncture No growth. Consult Discharge Plan - Plan Additional Instructions: Cleanse incision with soap and water and pat dry daily Non-weight bearing to Left surgical incision PT/OT daily Referrals: Sepideh Gallo MD [Primary Care Provider] - (PT IS GOING TO [facility] NO PCP APPOINTMENT NEEDED) Chapo Escobar, VISCOSE DEPARTMENT WORKER [Advanced Practice Nurse] - 05/12/16 3:00 pm Magnolia Garcia CNP [Advanced Practice Nurse] - 05/09/16 10:15 am (surgery follow-up)
--- NOTE | 2016-04-27 12:55 | Cardiology Progress Note ---
Date of Encounter: 04/27/16 Time of Encounter: 12:30 Assessment and Plan (1) Acute on chronic renal failure Current Visit: Yes Status: Acute Per cardiology: -Known history of CKD. -WOrsening kidney function. -Mephrology following. -Per nephrology note, plan for dialysis today. -Net +5Liters since admission. -Suspect fluid overload secondary to worsening renal disease. -Management per nephrology and primary service. (RIP) (2) Status post above knee amputation of left lower extremity Current Visit: Yes Status: Acute Per cardiology: -Status post AKA 3 days ago due to worsening ulcer of left ankle and PAD. -Management per vascular and primary service. (RIP) (3) CAD (coronary artery disease) Current Visit: Yes Status: Chronic Per cardiology: -[facility] 04/21/10 Severe three vessel coronary artery disease. Mild left main coronary artery disease. 15% stenosis in the left main coronary artery. 60% stenosis in the mid LAD. 60 to 70% stenosis in the proximal to mid LCx. Occluded proximal RCA. Good quality collateral vessels from the first obtuse marginal artery to the distal first right posterolateral artery were present. Fair quality collateral vessels from the third septal software engineer developer to the mid first posterior descending septal software engineer developer artery were present. The overall left ventricular systolic function was mildly reduced. The left ventricular ejection fraction was 45-50%. Recommendation: Optimal medical therapy of the patient's disease, including aspirin, beta blockers, karla inhibitors, Plavix and statin therapy. Consider PCI of Mid LAD if angina is refractory to medical Rx. -Currently denies chest pain. -On CCB, imdur, beta cely-- will switch to Toprol XL, statin. -Unable to complete echocardiogram due to patient's compliance. Echo images obtained show low normal/mildly reduced EF. -Cardiology will sign off and will follow as outpatient. Outpatient appointment already set up. (RIP). Qualifiers: Coronary Disease-Associated Artery/Lesion type: [place] artery [place] vs. transplanted heart: [place] heart Associated angina: without angina Qualified Code(s): I25.10 - Atherosclerotic heart disease of [place] coronary artery without angina pectoris (4) Volume overload Current Visit: Yes Status: Acute Per cardiology: - Net positive 5Liters since admission. -BNP on admission 1999s, repeat BNP 04/26/16 1159. -EF low normal on images that were visualized on echo. -On IVPB lasix -Poor urine output with worsening kidney function. -PLan for dialysis catheter and hemodialysis today. -Do not suspect worsening heart failure. Suspect related to kidney function. Clinically appears stable. BNP has improved. Not requiring higher O2. Suspect will improve with dialysis. - Will change lasix IVPB to IV push to reduce volume intake. (RIP) Qualifiers: Hypervolemia type: unspecified Qualified Code(s): E87.70 - Fluid overload, unspecified (5) Paroxysmal a-fib Current Visit: Yes Status: Chronic Per cardiology: -PAF noted, unsure of when diagnosed. EKG 03/2016 showed A-Fib. -SR on admission here. -On Coumadin for DVT hx. Pharmacy dosing during admission. -INR 2.5 today. -Average HR 63, sinus rhythm. -On beta cely and calcium channel cely and coumadin. -Will switch lopressor to toprol. (RIP) Discussion w patient/family: The assessment and plan as outlined above was discussed with the patient and/or family members who expressed understanding and agreement. All questions were answered. Thank you for involving us in the care of your patient. Please call with any questions. Subjective Principal diagnosis: acute on chronic kidney disease Interval history: is a 75 year old female with a relevant past medical history of CAD, PAD , DM, HTN, hyperlipidemia, NC, CHF, COPD, and left carotid endarterectomy. Patient was admitted with NSTEMI, worsening CKD, and PAD with lower extremity ulcers. Patient underwent left AKA 3 days ago. Patient was previously seen by cardiology for NSTEMI and recommended medical management. Cardiology has been reconsulted today for "acute decompensated heart failure and anuria." Patient denies chest pain today. States her breathing is about baseline. (RIP) Objective Vital Signs, Last 4 Hours Temp Pulse Resp Pulse Ox 04/27/16 12:08 97.5 F L 55 16 100 04/27/16 10:27 66 100 General: Conversant, No Apparent Distress HEENT: Atraumatic, Normocephaly, Mucus Membranes Moist Neck: No JVD, Normal carotid pulses Cardiac: Reg Rate and Rhythm, Normal S1 and S2, No Murmur Lungs: Other (Lung sounds diminished throughout. ) Neuro: Alert and responsive, No focal deficits noted Abdomen: Soft, Non-Tender Skin: No rashes noted on visualized skin Musculoskeletal: No Chest Wall Tenderness Extremities: No Clubbing, No Cyanosis, Other (Right upper extremity edema noted , non-pitting. Left AKA. ) Results 04/27/16 07:55 04/27/16 04:18 Lab Results Active Medications Acetaminophen (Tylenol) 650 mg PO Q6HR PRN PRN Reason: Mild Pain (1-3) Stop: 10/20/16 00:16 Acetaminophen (Tylenol 650mg Supp) 650 mg RC Q6HR PRN PRN Reason: Fever Stop: 10/21/16 06:41 Amlodipine Besylate (Norvasc) 5 mg PO DAILY ENE PRN Reason: Protocol Stop: 10/20/16 09:01 Last Admin: 04/27/16 10:32 Dose: 5 mg Dextrose/Water (Dextrose 50% (Syg)) 25 ml IVP AD PRN PRN Reason: Hypoglycemia Stop: 10/20/16 04:17 Docusate Sodium (Colace) 100 mg PO BID PRN PRN Reason: Constipation Stop: 10/20/16 00:16 Glucagon (Glucagen) 1 mg IM ONCE PRN PRN Reason: Hypoglycemia Stop: 10/20/16 04:17 Glucose (Gluctose) 15 gm PO ONCE PRN PRN Reason: Hypoglycemia Stop: 10/20/16 04:17 Glucose (Gluctose) 30 gm PO ONCE PRN PRN Reason: Hypoglycemia Stop: 10/20/16 04:17 Hydromorphone HCl (Dilaudid) 0.5 mg IVP Q6HR PRN PRN Reason: Breakthrough Pain Stop: 10/26/16 16:40 Last Admin: 04/27/16 00:45 Dose: 0.5 mg Dextrose (Dextrose 5%) 1,000 mls @ 100 mls/hr IV CONT PRN PRN Reason: HYPOGLYCEMIA Stop: 10/20/16 04:17 Levofloxacin/Dextrose (Levaquin 500mg/100ml) 500 mg in 100 mls @ 100 mls/hr IVPB Q48H ENE PRN Reason: Protocol Stop: 10/22/16 13:01 Last Infusion: 04/27/16 12:14 Dose: Infused Metronidazole (Flagyl 500 Mg/100 Ml) 500 mg in 100 mls @ 100 mls/hr IVPB Q8HR ENE Stop: 10/21/16 16:01 Last Infusion: 04/27/16 12:14 Dose: Infused Furosemide 40 mg/ Sodium (Chloride) 54 mls @ 100 mls/hr IVPB BID [facility] Stop: 10/26/16 21:01 Last Infusion: 04/27/16 12:14 Dose: Infused Insulin Human Lispro (Humalog) 0 units SQ TIDAC ENE PRN Reason: Protocol Stop: 10/20/16 18:46 Last Admin: 04/27/16 12:04 Dose: Not Given Insulin Human Lispro (Humalog) 0 units SQ HS ENE PRN Reason: Protocol Stop: 10/20/16 21:01 Last Admin: 04/26/16 21:19 Dose: Not Given Isosorbide Mononitrate (Imdur) 60 mg PO DAILY [facility] Stop: 10/20/16 09:01 Last Admin: 04/27/16 10:32 Dose: 60 mg Lactobacillus Acidophilus/Rhamnosus (Culturelle) 1 each PO BID [facility] Stop: 10/20/16 09:01 Last Admin: 04/27/16 10:32 Dose: 1 each Levothyroxine Sodium (Synthroid) 200 mcg PO DAILY [facility] Stop: 10/20/16 09:01 Last Admin: 04/27/16 10:32 Dose: 200 mcg Lorazepam (Ativan) 0.5 mg PO BID PRN PRN Reason: Anxiety Last Admin: 04/26/16 06:17 Dose: 0.5 mg Metoprolol Tartrate (Lopressor) 5 mg IVP Q6HR PRN PRN Reason: SEE COMMENTS Stop: 10/20/16 00:16 Metoprolol Tartrate (Lopressor) 5 mg IVP Q5MIN PRN; Protocol PRN Reason: Hypertension Stop: 10/24/16 08:02 Metoprolol Tartrate (Lopressor) 50 mg PO BID [facility] Stop: 10/20/16 09:01 Last Admin: 04/27/16 10:32 Dose: 50 mg Naloxone HCl (Narcan) 0.4 mg IVP Q2MIN PRN PRN Reason: Opioid Reversal Stop: 10/20/16 00:16 Nitroglycerin (Nitroglycerin) 0.4 mg SL Q5MIN PRN PRN Reason: Chest Pain Stop: 10/20/16 00:16 Nystatin (Nystop) 1 appl TP BID [facility] Stop: 10/20/16 09:01 Last Admin: 04/27/16 10:34 Dose: 1 appl Oxycodone HCl (Roxicodone) 5 mg PO Q6HR PRN PRN Reason: Moderate Pain (4-6) Stop: 10/20/16 00:16 Last Admin: 04/25/16 23:49 Dose: 5 mg Oxycodone/Acetaminophen (Percocet 5/325) 1 each PO Q6HR PRN PRN Reason: moderate pain 4-7 Stop: 10/24/16 10:57 Last Admin: 04/27/16 12:15 Dose: 1 each Pantoprazole Sodium (Protonix) 40 mg IVP DAILY ENE Stop: 10/20/16 09:01 Last Admin: 04/27/16 10:31 Dose: 40 mg Paricalcitol (Zemplar) 1 mcg PO DAILY ENE Stop: 10/20/16 09:01 Last Admin: 04/27/16 10:32 Dose: 1 mcg Quetiapine Fumarate (Seroquel) 12.5 mg PO HS ENE PRN Reason: Protocol Stop: 10/23/16 21:01 Last Admin: 04/26/16 21:20 Dose: Not Given Rosuvastatin Calcium (Crestor) 20 mg PO HS ENE Stop: 10/20/16 21:01 Last Admin: 04/26/16 21:19 Dose: Not Given Warfarin Sodium (Coumadin Perpt) 1 each PO DAILY@1800 PRN PRN Reason: SEE COMMENTS Stop: 10/20/16 18:01 Laboratory Tests 11/27/13 04/04/16 04/20/16 14:20 17:20 01:31 Hgb Hct INR Creatinine 1.47 H 1.87 H 2.24 H B-Natriuretic Peptide 04/20/16 04/26/16 04/26/16 01:31 08:30 08:30 Hgb Hct INR Creatinine 2.99 H B-Natriuretic Peptide 2623 H 1159 H 04/27/16 04/27/16 04/27/16 04:18 04:18 07:55 Hgb 8.5 L Hct 27.5 L INR 2.5 Creatinine 3.39 H B-Natriuretic Peptide - Imaging and Cardiology Chest Xray: report reviewed Echo: report reviewed - EKG Interpretation EKG results cardiology: personally reviewed (ECG with sinus rhythm with right bundle branch block.), other (Telemetry reviewed with average HR 63, sinus rhythm, longest pause 2.1 PVCs noted. One couplet PVCs noted. PAcs noted.) Consult Discharge Plan - Plan Additional Instructions: Cleanse incision with soap and water and pat dry daily Non-weight bearing to Left surgical incision PT/OT daily Referrals: Sepideh Gallo MD [Primary Care Provider] - (PT IS GOING TO [facility] NO PCP APPOINTMENT NEEDED) Chapo Escobar CNP [Advanced Practice Nurse] - 05/12/16 3:00 pm Magnolia Garcia CNP [Advanced Practice Nurse] - 05/09/16 10:15 am (surgery follow-up)
[2016-04-27] MEDS ORDERED: *HR* Heparin 5,000 UNIT/ML VIAL ONE (13:12)
--- NOTE | 2016-04-27 13:23 | IR Procedure Note ---
Date of procedure: 04/27/16 Consent Obtained: Verbal consent Timeout: Correct patient and procedure verified, Correct site verified, Time out performed, Skin prep completed Indications: renal failure Procedure Performed: temp HDC Site/Technique: rt IJ Results/Findings: Adequate placement Estimated blood loss (cc): 0 Complications: None; Tolerated procedure well Post Procedure Treatment Plan: CXR and then OK to use
[2016-04-27] MEDS: Furosemide 40 MG/4 ML VIAL IVP SCH (17:17)
[2016-04-27] MEDS: *HR* LORazepam 0.5 MG TABLET PO PRN (20:36)
[2016-04-28] MEDS: Insulin LISPRO 300 UNITS/3 ML VIAL SQ SCH ×4 (01:00→16:59)
[2016-04-28] MEDS: MetroNIDAZOLE 500 MG/100 ML 500 MG/100 ML BAG IVPB SCH ×3 (01:16→17:02)
[2016-04-28] MEDS: Nystatin POWDER 30 GM BOTTLE TP SCH ×2 (01:17→12:01)
[2016-04-28] MEDS: *HR* OxyCODONE Immed Rel 5 MG TABLET PO PRN (01:18)
[2016-04-28] MEDS: *HR* HYDROmorphone (PF) 1 MG/ML SYRINGE IVP PRN ×3 (05:07→20:45)
[2016-04-28 05:41] LABS: Basophils % 0.2 %; Eosinophils # 0.1 K/mcL (0.0-0.6); Hematocrit 27.9 % (35.3-44.9); Hemoglobin 8.4 g/dL (11.5-15.4); Immature Granulocytes % 1.8 % (0-4); Lymphocytes # 0.9 K/mcL (0.6-4.6); Lymphocytes % 17.3 %; Mean Corpuscular HGB Conc 30.1 g/dL (31.6-35.5); Mean Corpuscular Hemoglobin 23.9 pg (28.0-33.3); Mean Corpuscular Volume 79.5 fL (83.0-100.0); Mean Platelet Volume 12.1 fL (9.4-12.4); Monocytes # 0.4 K/mcL (0.0-1.3); Monocytes % 8.5 %; Neutrophils # 3.5 K/mcL (1.6-8.9); Platelet Count 174 K/mcL (140-400); Red Blood Count 3.51 M/mcL (3.82-4.97); Segmented Neutrophils % 70.2 %
[2016-04-28 05:49] LABS: INR 1.9; Prothrombin Time 20.7 Seconds (9.4-12.1)
[2016-04-28 05:55] LABS: Calcium 7.6 mg/dL (8.6-10.8); Potassium 3.7 mEq/L (3.5-4.5)
[2016-04-28] MEDS ORDERED: 0.9 % Sodium Chloride 250 ML IVC PRN (08:08)
[2016-04-28 08:18] LABS: Complement Component 3 67 mg/dL (88-201); Complement Component 4 20 mg/dL (10-40)
--- NOTE | 2016-04-28 10:01 | Nephrology Progress Note ---
Date of Encounter: 04/28/16 Time of Encounter: 09:59 - Assessment and Plan (1) Acute on chronic renal failure Current Visit: Yes Status: Acute HD yesterday improved patient's renal function. AVIATION PROJECT ENGINEER today. Tentative AVIATION PROJECT ENGINEER tomorrow pending labs. Urine output improved. (2) CKD (chronic kidney disease) stage 4, GFR 15-29 ml/min Current Visit: Yes Status: Chronic (3) Diabetic nephropathy with proteinuria Current Visit: Yes Status: Chronic (4) Acute metabolic encephalopathy Current Visit: Yes Status: Resolved (5) Status post above knee amputation of left lower extremity Current Visit: Yes Status: Acute (6) Anemia Current Visit: Yes Status: Chronic Qualifiers: Anemia type: other cause Other causes of anemia: chronic disease, kidney Qualified Code(s): N18.9 - Chronic kidney disease, unspecified; D63.1 - Anemia in chronic kidney disease (7) Foot ulcer due to secondary DM Current Visit: No Status: Acute Subjective Principal diagnosis: acute on chronic kidney disease Interval history: Patient seen and examined. In HD. Confused, but consolable. Objective - Vital Signs Vital signs: Vital Signs Temp Pulse Resp BP Pulse Ox 04/28/16 08:00 69 04/28/16 07:35 97.9 F 64 20 129/66 90 L 04/28/16 05:11 97.4 F L 79 20 139/64 91 L 04/28/16 04:10 70 04/28/16 00:39 98.0 F 63 18 115/44 100 04/28/16 00:10 73 04/27/16 21:08 97.8 F 74 16 124/81 98 04/27/16 19:45 74 04/27/16 17:05 97.5 F L 74 18 108/66 94 L 04/27/16 12:08 97.5 F L 55 16 99/53 100 04/27/16 10:27 66 100 Intake and Output 04/27/16 04/28/16 04/28/16 23:59 07:59 15:59 Intake Total 100 / 100 100 / 100 Output Total 400 / 400 Balance 100 / 100 -300 / -300 Intake: IV Fluids 100 / 100 100 / 100 Flagyl 500 MG/100 ML 500 100 / 100 100 / 100 mg In 100 ml @ 100 mls/hr IVPB Q8HR [facility] Rx#: [id number] Output: Urine 400 / 400 Other: Meal Breakfast Percent of Meal Consumed 0% Weight 85.4 kg Blood Glucose* 102 91 Patient Weight 04/28/16 23:59 Weight 85.4 kg - General Appearance General appearance: Present: well-developed, well-nourished, obese EENT: Present: mucous membranes moist Neck: Present: supple Respiratory: Present: clear Cardiology: Present: regular rate, regular rhythm Dialysis Vascular Access: Venous Catheter (right IJ) Additional Comments: bruising along bilateral upper extremities L>R Neurologic: Present: confused, disoriented Additional Comments: left AKA, right heel bandaged and in pressure boot Psychiatric: Present: agitated (but consolable) - Lab 04/28/16 05:00 04/28/16 05:00 Most recent lab results Calcium 7.6 mg/dL (8.6-10.8) L 04/28/16 05:00 Phosphorus 3.9 mg/dL (2.3-4.7) 04/27/16 04:18 Magnesium 1.8 mg/dL (1.6-2.6) 04/27/16 04:18 Urine Creatinine 247 mg/dL 04/26/16 09:15 Urine Total Protein 195 mg/dL (1-14) H 04/26/16 09:15 - VTE Contraindication No Overlap Therapy: Medical contraindication Consult Discharge Plan - Plan Additional Instructions: Cleanse incision with soap and water and pat dry daily Non-weight bearing to Left surgical incision PT/OT daily Referrals: Sepideh Gallo MD [Primary Care Provider] - (PT IS GOING TO [facility] NO PCP APPOINTMENT NEEDED) Chapo Escobar CNP [Advanced Practice Nurse] - 05/12/16 3:00 pm Magnolia Garcia CNP [Advanced Practice Nurse] - 05/09/16 10:15 am (surgery follow-up)
[2016-04-28] MEDS: Furosemide 40 MG/4 ML VIAL IVP SCH ×2 (12:01→17:01)
[2016-04-28] MEDS: Lactobacillus 1 EACH CAP.SPRINK PO SCH (12:01)
[2016-04-28] MEDS: Pantoprazole 40 MG VIAL IVP SCH (12:01)
[2016-04-28] MEDS: amLODIPine 5 MG TABLET PO SCH (12:34)
[2016-04-28] MEDS: Metoprolol XL (24 HR) Succ 50 MG TAB.ER.24H PO SCH (12:34)
[2016-04-28] MEDS: Isosorbide MONOnitrate (24 HR) 60 MG TAB.ER.24H PO SCH (12:34)
[2016-04-28] MEDS: Levofloxacin 500 MG/100 ML 500 MG/100 ML BAG IVPB SCH (12:43)
--- NOTE | 2016-04-28 13:44 | Internal Med Progress Note ---
Date of Encounter: 04/28/16 Time of Encounter: 13:42 - Assessment and plan (1) Status post above knee amputation of left lower extremity Current Visit: Yes Status: Acute (2) Non-ST elevation myocardial infarction (NSTEMI) due to mismatch of myocardial oxygen supply and demand Current Visit: Yes Status: Acute (3) Acute metabolic encephalopathy Current Visit: Yes Status: Resolved (4) Acute on chronic renal failure Current Visit: Yes Status: Acute (5) Diabetic foot ulcer associated with type 2 diabetes mellitus, with fat layer exposed Current Visit: Yes Status: Chronic Qualifiers: Diabetic foot ulcer location: unspecified part of foot Laterality: left Qualified Code(s): E11.621 - Type 2 diabetes mellitus with foot ulcer; L97.522 - Non-pressure chronic ulcer of other part of left foot with fat layer exposed (6) DM2 (diabetes mellitus, type 2) Current Visit: Yes Status: Chronic Qualifiers: Diabetes mellitus complication status: with kidney complications Diabetes mellitus complication detail: with chronic kidney disease Diabetes mellitus termination clerk insulin use: without fpc use Chronic kidney disease stage: stage 3 (moderate) Qualified Code(s): E11.22 - Type 2 diabetes mellitus with diabetic chronic kidney disease; N18.3 - Chronic kidney disease, stage 3 ( moderate) (7) Supratherapeutic INR Current Visit: No Status: Acute (8) Hypothyroidism Current Visit: Yes Status: Chronic Qualifiers: Hypothyroidism type: unspecified Qualified Code(s): E03.9 - Hypothyroidism , unspecified (9) Congestive heart failure Current Visit: Yes Status: Chronic Qualifiers: Congestive heart failure type: combined Congestive heart failure chronicity : acute on chronic Qualified Code(s): I50.43 - Acute on chronic combined systolic (congestive) and diastolic (congestive) heart failure (10) Microcytic hypochromic anemia Current Visit: Yes Status: Chronic Assessment and plan: 75 year old female with pmh of CAD,PAD, DM admitted with diabetic foot ulcer with abscess, s/p AKA with course complicated by LINDA on CKD. # Diabetic foot infection s/p AKA on 04/24/16: Admitted with infection of the left heel, ulcer, severe PAD, s/p above knee amputation POD#4, doing well post surgery, vascular surgery following. High risk on IV dilaudid and PO percocet for pain control with baseline dementia and behavioural abnormalities. d/c flagyl continue Levaquin for now. # Right foot ulcer: Pt has PAD of right LE with diminished pulses and ulcers. Vascular surgery following. # LINDA on CKD Stage 4: Baseline CKD with worsening renal function and minimal urine output. Volume overloaded. Appears to be cardiorenal/intrinsic renal. On lasix without any response. Started on dialysis 04/27. Plan for HD today # Acute metabolic/toxic encephalopathy: In setting of sepsis secondary to foot abscess, uremia and narcotics. Has baseline dementia which is worsening the symptoms. Montior closely # NSTEMI: NSTEMI this admission, was evaluated by cardiology, currently managed medically. On BB and statin. Aspirin remains on hold in setting of anemia. Will try to keep Hb around 9 in setting of acute OH. # Anemia, acute on chronic in setting of blood loss: Hb around 8.4. Aspirin and coumadin on held. Likely related to CKD and acute blood loss in setting of surgery. Will try to keep around 8-9 given NSTEMI this admission. # Paroxysmal Afib: On rate control with BB and AC with coumadin. Restarted coumadin today. Monitor PT/INR # Coagulopathy with elevated INR: INR 2.5 today, continue to hold Coumadin today in view of procedures for initiating dialysis. Restart tomorrow # Acute decompensated systolic and diastolic heart failure: In setting of volume overload, poor renal output. On lasix without any significant increase in urine output Plan to be started on dialysis soon. Hold ACEI in setting of worsening renal function. Limited echo this admission shows minimal decrease in EF without any other significant defects. Cardiology consulted # DM Type 2 with complications: Monitor BGM AC and HS , on SSI. # Hypothyroidism: Continue synthroid # DVT prophylaxis: Coumadin held in setting of supratherapeutic INR. Restarted - Time Spent With Patient 25 - 35 minutes - Subjective Interval history: Patient was seen and examined at bedside. She is alert, not oriented. She has been complaining of pain, especially wit BP cuff going off. Unable to get more hx. - Constitutional Vitals: Temp Pulse Resp BP Pulse Ox 97.4 F L 84 18 122/54 93 L 04/28/16 12:35 04/28/16 12:35 04/28/16 12:35 04/28/16 12:35 04/28/16 12:35 General appearance: Present: A&O X 1, answers questions appropriately (n). Absent: cooperative - Head Head exam: Present: atraumatic, normocephalic - Eye Eye exam: Present: PERRL, conjuntiva pink, sclera anicteric Pupils: Present: PERRL - Neck Neck exam general surgery: Present: supple, trachea midline. Absent: lymphadenopathy - Respiratory Respiratory exam: Present: CTAB. Absent: accessory muscle use, rales, rhonchi, wheezes - Cardiovascular Cardiovascular exam: Present: RRR, +S1, +S2. Absent: diastolic murmur, gallop, rubs, systolic murmur - GI/Abdominal GI/Abdominal exam: Present: normal bowel sounds, soft, no peritoneal signs. Absent: distended, tenderness - Extremities Exam Extremities exam: Present: warm, radial pulses palpable and symetrical. Absent : calf tenderness, cyanotic, pedal edema - Neurological Exam Neurological exam: Present: CN II-XII intact, oriented X3, no focal deficits. Absent: pronater drift, facial droop, speech deficit - Skin Skin exam: Present: dry, intact Internal Medicine: Result - Labs CBC & Chem 7: 04/28/16 05:00 04/28/16 05:00 Labs: Short CBC 04/28/16 Range/Units 05:00 WBC 5.0 (4.3-11.1) K/mcL Hgb 8.4 L (11.5-15.4) g/dL Hct 27.9 L (35.3-44.9) % Plt Count 174 (140-400) K/mcL Neutrophils # 3.5 (1.6-8.9) K/mcL BMP 04/28/16 05:00 Sodium 140 Potassium 3.7 Chloride 106 Carbon Dioxide 26 BUN 34 H D Creatinine 2.55 H Glucose 95 Calcium 7.6 L - ABG Interpretation ABG results: PT/INR, D-dimer PT 20.7 Seconds (9.4-12.1) H 04/28/16 05:00 D-Dimer 723 ng/mLFEU (0-500) H 04/20/16 09:50 - Impressions Impressions Guidance Needle Placement Ultrasound 04/27/16 00:00 IMPRESSION: Successful ultrasound guided right jugular temporary dialysis catheter placement. D/ / 04/27/2016 14:29:41 Lianet Ball MD / Lala Douglas Interpreting Provider: Lianet Ball MD Insertion Non-Tunneled Catheter 04/27/16 00:00 IMPRESSION: Successful ultrasound guided right jugular temporary dialysis catheter placement. D/ / 04/27/2016 14:29:41 Lianet Ball MD / Lala Douglas Interpreting Provider: Lianet Ball MD Chest X-Ray 04/27/16 13:20 IMPRESSION: Status post right CVC placement with tip in the proximal superior vena cava. No pneumothorax. D/ / 04/27/2016 13:48:58 Jesus Ackerman MD / bcarter Interpreting Provider: Jesus Ackerman MD - VTE Contraindication No Overlap Therapy: Medical contraindication Consult Discharge Plan - Plan Additional Instructions: Cleanse incision with soap and water and pat dry daily Non-weight bearing to Left surgical incision PT/OT daily Referrals: Sepideh Gallo MD [Primary Care Provider] - ([facility]ING TO [facility] NO PCP APPOINTMENT NEEDED) Chapo Escobar CNP [Advanced Practice Nurse] - 05/12/16 3:00 pm Magnolia Garcia CNP [Advanced Practice Nurse] - 05/09/16 10:15 am (surgery follow-up)
[2016-04-28] MEDS ORDERED: *HR* Warfarin 1 MG TABLET PO ONE (18:00)
[2016-04-29] MEDS: MetroNIDAZOLE 500 MG/100 ML 500 MG/100 ML BAG IVPB SCH ×2 (00:55→08:41)
[2016-04-29] MEDS: Nystatin POWDER 30 GM BOTTLE TP SCH ×2 (01:06→08:41)
[2016-04-29] MEDS: Insulin LISPRO 300 UNITS/3 ML VIAL SQ SCH ×3 (01:07→12:34)
[2016-04-29] MEDS: Lactobacillus 1 EACH CAP.SPRINK PO SCH ×2 (01:07→08:42)
[2016-04-29] MEDS: *HR* OxyCODONE Immed Rel 5 MG TABLET PO PRN (01:28)
[2016-04-29 05:21] LABS: Hematocrit 31.5 % (35.3-44.9); Mean Corpuscular Volume 81.8 fL (83.0-100.0); Red Blood Count 3.85 M/mcL (3.82-4.97); Red Cell Distribution Width 19.9 % (11.5-14.5)
[2016-04-29 05:23] LABS: Basophils % 0.1 %; Eosinophils # 0.1 K/mcL (0.0-0.6); Eosinophils % 1.5 %; Hemoglobin 9.1 g/dL (11.5-15.4); Immature Granulocytes % 1.5 % (0-4); Immature Platelets 8.8 % (1.1-6.1); Lymphocytes # 0.9 K/mcL (0.6-4.6); Lymphocytes % 11.3 %; Mean Corpuscular HGB Conc 28.9 g/dL (31.6-35.5); Mean Corpuscular Hemoglobin 23.6 pg (28.0-33.3); Monocytes # 0.6 K/mcL (0.0-1.3); Monocytes % 7.7 %; Platelet Count 164 K/mcL (140-400); Segmented Neutrophils % 77.9 %
[2016-04-29 05:25] LABS: INR 1.4; Prothrombin Time 15.5 Seconds (9.4-12.1)
[2016-04-29 05:50] LABS: Neutrophils # 5.8 K/mcL (1.6-8.9)
[2016-04-29 05:51] LABS: Anisocytosis 1+ (Not Present); Macrocytosis Present (Not Present); Microcytosis Present (Not Present); Poikilocytosis 1+ (Not Present)
[2016-04-29 05:52] LABS: Platelet Estimate Normal (Normal)
[2016-04-29 05:53] LABS: Polychromasia 1+ (Not Present)
[2016-04-29] MEDS: *HR* HYDROmorphone (PF) 1 MG/ML SYRINGE IVP PRN ×2 (05:53→14:17)
[2016-04-29 06:49] LABS: Albumin 1.7 g/dL (3.5-5.0); Phosphorous 3.2 mg/dL (2.3-4.7); Potassium 3.8 mEq/L (3.5-4.5)
[2016-04-29 07:49] LABS: ANA IgG by ELISA DETECTED (None Detected)
[2016-04-29] MEDS: Pantoprazole 40 MG VIAL IVP SCH (08:41)
[2016-04-29] MEDS: Furosemide 40 MG/4 ML VIAL IVP SCH (08:41)
[2016-04-29] MEDS: Metoprolol XL (24 HR) Succ 50 MG TAB.ER.24H PO SCH (08:42)
[2016-04-29] MEDS: amLODIPine 5 MG TABLET PO SCH (08:42)
[2016-04-29] MEDS: Isosorbide MONOnitrate (24 HR) 60 MG TAB.ER.24H PO SCH (08:42)
--- NOTE | 2016-04-29 10:38 | Nephrology Progress Note ---
Date of Encounter: 04/29/16 Time of Encounter: 10:36 - Assessment and Plan (1) Acute on chronic renal failure Current Visit: Yes Status: Acute HD the previous 2 days improved patient's renal function. No urgent need for [employer] [employer] today. Will continue to trend renal function, dialysis access to remain in place. Patient labs came back positive VICTOR MANUEL, low C3, normal C4. Immunoelectrophoresis and kappa lambda light chains pending. - Order ANCA, anti-GBM, dsDNA. -24 urine: total protein, creatinine, protein to creatinine ratio, sodium, potassium, urea (2) CKD (chronic kidney disease) stage 4, GFR 15-29 ml/min Current Visit: Yes Status: Chronic (3) Diabetic nephropathy with proteinuria Current Visit: Yes Status: Chronic (4) Acute metabolic encephalopathy Current Visit: Yes Status: Resolved (5) Status post above knee amputation of left lower extremity Current Visit: Yes Status: Acute (6) Anemia Current Visit: Yes Status: Chronic Qualifiers: Anemia type: other cause Other causes of anemia: chronic disease, kidney Qualified Code(s): N18.9 - Chronic kidney disease, unspecified; D63.1 - Anemia in chronic kidney disease (7) Foot ulcer due to secondary DM Current Visit: No Status: Acute Subjective Principal diagnosis: acute on chronic kidney disease Interval history: Patient seen and examined. Resting comfortably. Objective - Vital Signs Vital signs: Vital Signs Temp Pulse Resp BP Pulse Ox 04/29/16 07:00 87 04/29/16 06:56 97.7 F 88 15 126/55 97 04/29/16 04:31 97.5 F L 89 16 130/58 91 L 04/29/16 03:20 87 04/29/16 01:16 98.0 F 93 20 130/58 91 L 04/29/16 00:40 85 04/28/16 19:57 98.0 F 81 20 136/65 96 04/28/16 16:51 98.1 F 81 18 129/56 94 L 04/28/16 15:53 82 04/28/16 12:35 97.4 F L 84 18 122/54 93 L 04/28/16 12:26 98.1 F 18 130/20 04/28/16 12:00 76 04/28/16 11:35 108/68 04/28/16 11:20 134/57 04/28/16 11:05 124/51 04/28/16 10:50 118/55 Intake and Output 04/28/16 04/29/16 04/29/16 23:59 07:59 15:59 Intake Total 100 / 100 100 / 100 0 / 0 Output Total 100 / 100 / 25 Balance 0 / 0 75 / 75 0 / 0 Intake: IV Fluids 100 / 100 100 / 100 Flagyl 500 MG/100 ML 500 100 / 100 100 / 100 mg In 100 ml @ 100 mls/hr IVPB Q8HR ENE Rx#: [id number] Oral 0 / 0 Output: Urine 100 / 100 Catheter Other: Meal Dinner Breakfast Percent of Meal Consumed 0% 0% Weight 84.5 kg Blood Glucose* 81 106 Patient Weight 04/29/16 23:59 Weight 84.5 kg - General Appearance General appearance: Present: well-developed, well-nourished EENT: Present: mucous membranes moist Neck: Present: supple Respiratory: Present: clear Cardiology: Present: regular rate, regular rhythm, normal S1, normal S2 Dialysis Vascular Access: Venous Catheter (tunneled permacatheter) Additional Comments: old bruising of bilateral upper extremities L>R Additional Comments: left AKA, right heel bandaged and in pressure boot - Lab 04/29/16 04:40 04/29/16 04:40 Most recent lab results Calcium 8.0 mg/dL (8.6-10.8) L 04/29/16 04:40 Phosphorus 3.2 mg/dL (2.3-4.7) 04/29/16 04:40 Magnesium 1.8 mg/dL (1.6-2.6) 04/27/16 04:18 Urine Creatinine 247 mg/dL 04/26/16 09:15 Urine Total Protein 195 mg/dL (1-14) H 04/26/16 09:15 - VTE Contraindication No Overlap Therapy: Medical contraindication Consult Discharge Plan - Plan Additional Instructions: Cleanse incision with soap and water and pat dry daily Non-weight bearing to Left surgical incision PT/OT daily Referrals: Sepideh Gallo MD [Primary Care Provider] - (PT IS GOING TO [facility] NO PCP APPOINTMENT NEEDED) Chapo Escobar RAMP BOSS [Advanced Practice Nurse] - 05/12/16 3:00 pm Magnolia Garcia CNP [Advanced Practice Nurse] - 05/09/16 10:15 am (surgery follow-up)
[2016-04-29 11:25] VITALS: BP 136/51
--- NOTE | 2016-04-29 14:42 | Palliative - Consult Note ---
Date of Encounter: 04/29/16 Time of Encounter: 14:39 - Assessment and Plan (1) Goals of care, counseling/discussion Current Visit: Yes Status: Acute Assessment and plan: Discussed goals of care with spouse-[place] Corwin Ross. Reviewed code status options. He has elected not to pursue aggressive care such as feeding tubes and lab testing. Mr. Olivia supported a change of code status to DNR-CC. He also spoke with family member Jonna Mccauley (niece) and supported DNR-CC status. Mr. Castillo is aware of her nutritional status and refusal of meals and fluids. Discussed the outcomes and continued decline if Ms. Olivia continues to decline food and fluids. If enrolled in hospice care, Mr. Olivia is aware that Ms. Olivia with not return to the hospital for aggressive treatment if her health declines. Discussed case with hospitalist and forensic social worker. Referral to hospice services upon return to [facility]. Upon discussion with the patient, she indicated that he wanted to go home. When asked where "home" was located, she smiled and said [place]. She would like to return to [facility] so she can be closer to her and family. For symptom management upon discharge, recommend using liquid oxycodone concentrate 5-10mg every 3 hours as needed for pain. Avoid Morphine due to renal disease. Also add Lorazepam 0.5mg every 4 hours as needed for anxiety or agitation. (2) Acute metabolic encephalopathy Current Visit: Yes Status: Acute (3) Acute on chronic renal failure Current Visit: Yes Status: Acute Assessment and plan: Nephrology following. (4) Status post above knee amputation of left lower extremity Current Visit: Yes Status: Acute Assessment and plan: per vascular surgery. Palliative-CN HPI - Data of Consult Patient: new to practice Consult date: 04/29/16 Requesting Physician: Trina Lobo MD Primary Care Provider: Sepideh Gallo - Consult Narrative Palliative Care/Comfort Measures: Palliative care Reason for consult: Goals of care History of present illness: Ms. Olivia is a 75 year old female presenting to [facility] from the emergency department at [place] for an altered mental status and fever. She was found to have a urinary tract infection with and elevated troponin and was transferred to [facility] for further work-up and care. Cardiology was consulted and recommended medical management. Ms. Olivia had multiple wounds to her left lower extremity. Podiatry was consulted, as well as vascular surgery. After evaluation, the decision was made to pursue left AKA. She had a left AKA on 04/24/16. Following surgery, she developed an acute on chronic kidney injury requiring a nephrology consult and HD. Ms. Olivia also developed worsening ulcers to the right lower extremity. Throughout her hospital stay, Ms. Olivia has adamantly refused to eat. Her albumin was as low a 1.5. The patient is unable to participate in conversation, information was gathered from the medical chart. CC: Trina Lobo MD Past Med Surg Social Fam HX - Past Medical History Source: old records reviewed Medical history: arthritis (Cervical spine osteomyelitis 2010. Chronic low back pain. Amputation left great toe. Left lateral foot diabetic ulcer.), asthma, atrial fibrillation, cardiomyopathy (LVEF A-35% 2010 echo. Mild MR. Grade 1 diastolic dysfunction.), CHF, COPD, coronary artery disease (Heart catheterization 2010 demonstrated mild LMCA disease 15% stenosis LAD 60% stenosis in midportion 60-70% stenosis and proximal to mid left circumflex. Proximal RCA occluded. Collaterals from first obtuse marginal to the distal right posterolateral artery. LVEF 45-50%.), DVT (Left leg DVT. Chronic Coumadin therapy.), diabetes (Right eye blindness.), GERD, GI bleed ( hemorrhoids.), hyperlipidemia, hypertension, myocardial infarction (x2), osteoporosis, peripheral artery disease (Left carotid artery endarterectomy. Left leg femoral artery stent.), renal disease, thyroid disease, venous stasis, other (Psoriatic arthritis. Psoriasis. Diabetic peripheral neuropathy.) Psychiatric history: anxiety, depression - Past Surgical History Surgical History: carotid endarterectomy, cataract (Bilateral cataracts.), cholecystectomy, orthopedic, other, other (Left great toe amputation 2009.), vascular surgery, LE stent (s) - Social History Smoking Status: Former smoker Packs per day: 1ppd x44yrs Smokeless Tobacco Status: No Alcohol use: none Drug use: none - Family History Son Adopted: [place]: MELBA Age: 32 Family Member Ethnicity: Non- Living Status: Age at : 32 Cause of : CHF Hx Family Cardiac Disorders: Yes Hx Family Respiratory Disorders: No Hx Family Cancer: Yes (MOTHER, GRANDDAUGHTERS X 2) Hx Family GI Disorders: No Hx Family Genitourinary Disorders: Yes Hx Family Endocrine Disorder: Yes Hx Family Musculoskeletal Disorders: No Hx Family Neuromuscular Disorders: No Hx Family Neurologic Disorders: No Hx Family HEENT Disorders: No Hx Family Autoimmune Disorders: Yes Hx Family Reproductive Disorders: No Hx Family Psychosocial Disorders: Yes Hx Family Medical Disorders: Yes Mother Family Member Ethnicity: Non- Living Status: Hx Family Cardiac Disorders: No Hx Family Respiratory Disorders: No Hx Family Cancer: Yes Hx Family GI Disorders: No Hx Family Endocrine Disorder: No Hx Family Neuromuscular Disorders: No Hx Family Neurologic Disorders: No Hx Family HEENT Disorders: No Hx Family Autoimmune Disorders: No Medications and Allergies Furosemide [Lasix] 40 mg PO BID 06/25/15 [History] Metoprolol Tartrate [Lopressor] 50 mg PO BID 06/25/15 [History] Multivit-Min/FA/Lycopen/Lutein [A Thru Z Select Multivit Tab] 1 tab PO DAILY [History] Omeprazole [PriLOSEC] 20 mg PO DAILY 06/25/15 [History] Paricalcitol [Zemplar] 1 mcg PO DAILY 06/25/15 [History] Amlodipine [Norvasc] 5 mg PO DAILY 03/09/16 [History] Gabapentin [Neurontin] 100 mg PO HS 03/09/16 [History] Insulin NPH Hum/Reg Insulin Hm [Humulin 70/30 Kwikpen] 28 unit SQ HS 03/09/16 [ History] Insulin NPH Hum/Reg Insulin Hm [Humulin 70/30 Kwikpen] 30 unit SQ QAM 03/09/16 [ History] Levothyroxine Sodium [Levoxyl] 200 mcg PO DAILY 03/09/16 [History] Warfarin [Coumadin] 1.5 mg PO QPM 03/09/16 [History] Mirtazapine [Remeron] 15 mg PO HS 03/30/16 [History] HYDROcodone/Acet 5/325 mg [[place] 5-325 mg] 1 tab PO Q8H PRN 04/01/16 [History] Digoxin [Lanoxin] 0.125 mg PO DAILY #30 tablet 04/02/16 [Rx] Isosorbide MONOnitrate (24 HR) [Imdur] 60 mg PO DAILY #30 tab.er.24h 04/02/16 [ Rx] Acetaminophen [Tylenol] 650 mg PO Q6HR PRN #0 tablet 03/24/17 [Rx] Docusate [Colace] 100 mg PO BID PRN #0 capsule 04/29/16 [Rx] Insulin LISPRO [HumaLOG] 0 units SQ HS vial 04/29/16 [Rx] Insulin LISPRO [HumaLOG] 0 units SQ TIDAC vial 04/29/16 [Rx] LORazepam [Lorazepam] 0.5 mg PO BID PRN #10 tablet 04/29/16 [Rx] Quetiapine Fumarate [Seroquel] 12.5 mg PO HS tablet 04/29/16 [Rx] Allergies codeine Allergy (Verified 03/02/16 10:31) Hives Penicillins [PCN] Allergy (Verified 03/02/16 10:31) Hives ROS unobtainable: due to mental status Palliative Care-Exam - Constitutional Vitals: Temp Pulse Resp BP Pulse Ox 98.4 F 85 16 136/51 95 04/29/16 11:00 04/29/16 11:00 04/29/16 11:00 04/29/16 11:00 04/29/16 11:00 Exam: 75 year old female appearing chronically ill, moaning - Head Head Exam: Present: atraumatic - Eye Eye exam: Present: EOMI Pupils: Present: PERRL - ENT ENT exam: Present: mucous membranes dry - Expanded ENT Exam Teeth exam: Present: dental caries - Respiratory Respiratory exam: Present: accessory muscle use, decreased breath sounds, rhonchi - Cardiovascular Cardiovascular exam: Present: irregular rhythm - GI/Abdominal Exam GI/Abdominal exam: Present: soft. Absent: tenderness - Catheter Type: Urethral (Ortega) - Expanded Upper Extremities Exam Upper Arm exam: Present: ecchymosis Forearm wrist exam: Present: ecchymosis - Expanded Lower Extremities Exam Lower Leg exam: Absent: normal inspection (Left sided AKA, right lower extremity with dressing intact covering wounds. ) - Neurological Exam Neurological exam: Present: alert (awake and able to answer some questions appropriately, Majority of conversation lacks direction and consise answers. ) - Psychiatric Psychiatric exam: Absent: agitated, anxious - Skin Skin exam: Present: dry, warm. Absent: intact (wounds to right lower extremity with dressing intact, left AKA dressing intact. ) Internal Medicine - CN: Reslt - Labs CBC & Chem 7: 04/29/16 04:40 04/29/16 04:40 Labs: Short CBC 04/29/16 Range/Units 04:40 WBC 7.5 (4.3-11.1) K/mcL Hgb 9.1 L (11.5-15.4) g/dL Hct 31.5 L (35.3-44.9) % Plt Count 164 (140-400) K/mcL Neutrophils # 5.8 (1.6-8.9) K/mcL BMP 04/29/16 04:40 Sodium 141 Potassium 3.8 Chloride 106 Carbon Dioxide 26 BUN 19 D Creatinine 2.27 H Glucose 102 H Calcium 8.0 L Liver Function 04/29/16 Range/Units 04:40 Albumin 1.7 L (3.5-5.0) g/dL - ABG Interpretation ABG results: PT/INR, D-dimer PT 15.5 Seconds (9.4-12.1) H 04/29/16 04:40 D-Dimer 723 ng/mLFEU (0-500) H 04/20/16 09:50 - Impressions Impressions Guidance Needle Placement Ultrasound 04/27/16 00:00 IMPRESSION: Successful ultrasound guided right jugular temporary dialysis catheter placement. D/ / 04/27/2016 14:29:41 Lianet Ball MD / Lala Douglas Interpreting Provider: Lianet Ball MD Insertion Non-Tunneled Catheter 04/27/16 00:00 IMPRESSION: Successful ultrasound guided right jugular temporary dialysis catheter placement. D/ / 04/27/2016 14:29:41 Lianet Ball MD / Lala Douglas Interpreting Provider: Lianet Ball MD Chest X-Ray 04/27/16 13:20 IMPRESSION: Status post right CVC placement with tip in the proximal superior vena cava. No pneumothorax. D/ / 04/27/2016 13:48:58 Jesus Ackerman MD / bcarter Interpreting Provider: Jesus Ackerman MD Chest X-Ray 04/29/16 08:24 IMPRESSION: Cardiomegaly without acute cardiopulmonary process identified. D/ / Drew Hewitt MD / Drew Hewitt MD Interpreting Provider: Drew Hewitt MD Consult Discharge Plan - Plan Additional Instructions: Cleanse incision with soap and water and pat dry daily Non-weight bearing to Left surgical incision PT/OT daily Referrals: Sepideh Gallo MD [Primary Care Provider] - (PT IS GOING TO [facility] NO PCP APPOINTMENT NEEDED) Chapo Escobar SERVICE GIRL [Advanced Practice Nurse] - 05/12/16 3:00 pm Magnolia Garcia CNP [Advanced Practice Nurse] - 05/09/16 10:15 am (surgery follow-up) Palliative Quality Palliative Quality: Screen for Code Status: Yes, Screen for Goals of Care: Yes, Screen for Pain: Yes, If Pain Regimen Started, Initiate Bowel Regimen: NA, Screen for Nausea/Vomitting: Yes Code Status: 04/29/16 14:34 DNR [Resuscitation Status: Active] [RES] Routine Resuscitation Status: DNR-Comfort Care Comment:
--- NOTE | 2016-04-29 15:21 | Discharge Summary ---
Date of Encounter: 04/29/16 Time of Encounter: 15:14 - Discharge Diagnosis (1) Status post above knee amputation of left lower extremity Priority: Primary Status: Acute (2) Non-ST elevation myocardial infarction (NSTEMI) due to mismatch of myocardial oxygen supply and demand Priority: Primary Status: Acute (3) Acute metabolic encephalopathy Priority: Primary Status: Acute (4) Acute on chronic renal failure Priority: Secondary Status: Acute (5) Diabetic foot ulcer associated with type 2 diabetes mellitus, with fat layer exposed Priority: Secondary Status: Chronic Qualifiers: Qualified Code(s): E11.621 - Type 2 diabetes mellitus with foot ulcer; L97.522 - Non-pressure chronic ulcer of other part of left foot with fat layer exposed (6) DM2 (diabetes mellitus, type 2) Priority: Secondary Status: Chronic Qualifiers: Qualified Code(s): E11.22 - Type 2 diabetes mellitus with diabetic chronic kidney disease; N18.3 - Chronic kidney disease, stage 3 (moderate) (7) Supratherapeutic INR Priority: Secondary Status: Acute (8) Hypothyroidism Priority: Secondary Status: Chronic Qualifiers: Qualified Code(s): E03.9 - Hypothyroidism, unspecified (9) Congestive heart failure Priority: Secondary Status: Chronic Qualifiers: Qualified Code(s): I50.43 - Acute on chronic combined systolic (congestive) and diastolic (congestive) heart failure (10) Microcytic hypochromic anemia Priority: Secondary Status: Chronic - Discharge Medications Prescriptions: LORazepam [Lorazepam] 0.5 mg PO BID PRN #10 tablet PRN Reason: Anxiety Home Medications: Furosemide [Lasix] 40 mg PO BID 06/25/15 [History] Metoprolol Tartrate [Lopressor] 50 mg PO BID 06/25/15 [History] Multivit-Min/FA/Lycopen/Lutein [A Thru Z Select Multivit Tab] 1 tab PO DAILY [History] Omeprazole [PriLOSEC] 20 mg PO DAILY 06/25/15 [History] Paricalcitol [Zemplar] 1 mcg PO DAILY 06/25/15 [History] Amlodipine [Norvasc] 5 mg PO DAILY 03/09/16 [History] Gabapentin [Neurontin] 100 mg PO HS 03/09/16 [History] Insulin NPH Hum/Reg Insulin Hm [Humulin 70/30 Kwikpen] 28 unit SQ HS 03/09/16 [ History] Insulin NPH Hum/Reg Insulin Hm [Humulin 70/30 Kwikpen] 30 unit SQ QAM 03/09/16 [ History] Levothyroxine Sodium [Levoxyl] 200 mcg PO DAILY 03/09/16 [History] Warfarin [Coumadin] 1.5 mg PO QPM 03/09/16 [History] Mirtazapine [Remeron] 15 mg PO HS 03/30/16 [History] HYDROcodone/Acet 5/325 mg [[place] 5-325 mg] 1 tab PO Q8H PRN 04/01/16 [History] Digoxin [Lanoxin] 0.125 mg PO DAILY #30 tablet 04/02/16 [Rx] Isosorbide MONOnitrate (24 HR) [Imdur] 60 mg PO DAILY #30 tab.er.24h 04/02/16 [ Rx] Acetaminophen [Tylenol] 650 mg PO Q6HR PRN #0 tablet 04/29/16 [Rx] Docusate [Colace] 100 mg PO BID PRN #0 capsule 04/29/16 [Rx] Insulin LISPRO [HumaLOG] 0 units SQ HS vial 04/29/16 [Rx] Insulin LISPRO [HumaLOG] 0 units SQ TIDAC vial 04/29/16 [Rx] LORazepam [Lorazepam] 0.5 mg PO BID PRN #10 tablet 04/29/16 [Rx] Quetiapine Fumarate [Seroquel] 12.5 mg PO HS tablet 04/29/16 [Rx] Allergies/Adverse Reactions: Allergies codeine Allergy (Verified 03/02/16 10:31) Hives Penicillins [PCN] Allergy (Verified 03/02/16 10:31) Hives Procedures/tests Complete & Pending: Procedures Performed prior 72 hours Category Date Time Status IR cvc insert non tunnel [IR] Routine IR 04/27/16 Completed IR us guide needle place [IR] Routine IR 04/27/16 Completed Date of admission: 04/21/16 11:40 Primary care physician: Sepideh Gallo Consults: 04/20/16 00:15 Consult to Cardiac Rehabilitation-Phase1 [CONS] Routine Comment: Reason for Consult: AMI Call Completed: Yes Consult to Pastoral Services [CONS] Routine Comment: PRAYER REQUESTED Consult to Medical Clinic Manager [CONS] Routine Reason for SW Consult: POA 04/20/16 04:16 Consult to Media Reporter [CONS] Routine Comment: 04/20/16 08:48 Consult to Invasive Line Access Team [CONS] Routine Reason for Consult: Power glide insertion Line Type: EPIV PICC line indications: Limited vascular access Time Notified: 08:48 Call Completed: Yes 04/20/16 09:20 Consult to Cardiology [CONS] Routine Comment: Consulting Provider: Cardiology [facility] Reason for Consult: NSTEMI Call Completed: Yes 04/20/16 10:06 Consult to Invasive Line Access Team [CONS] Routine Reason for Consult: limited vascular access Line Type: EPIV 04/21/16 11:13 Consult to Wound Care [CONS] Routine Reason for Consult: Right foot with multiple ulcers , stasis dermatitis; Stacey Mendiola requested consult to see patient's wounds again Call Completed: No 04/21/16 17:19 Consult to Podiatry [CONS] Routine Consulting Provider: [facility] Reason for Consult: Left heel diabetic foot ulcer Call Completed: Yes 04/22/16 17:24 Consult to Vascular Surgery [CONS] DAILY Consulting Provider: Vascular Surgery [facility] Reason for Consult: abnormal SRAVANTHI Right: The right posterior tibial pressure is 69 mmHg with an index of 0.42. Left: The left dorsalis pedis pressure is 53 mmHg with an index of 0.33. PVR: Right: The PVR waveforms are severely diminished in the right ankle. Left: The PVR waveforms are severely diminished in the left ankle. Call Completed: Yes 04/23/16 11:30 Consult to Physician [CONS] Routine Consulting Provider: Deacon Solorzano Reason for Consult: VASCULAR Time Notified: 11:31 Call Completed: Yes 04/26/16 08:10 Consult to Nephrology [CONS] Stat Consulting Provider: Kidney [facility]/SANDRA/DEYSI/PRANAY Reason for Consult: LINDA, possible ATN with minimal urine output Call Completed: No 04/26/16 11:05 Consult to Occupational Therapy [CONS] Routine Comment: Evaluate, develop and implement POC Consult to Physical Therapy [CONS] Routine Comment: Evaluate, develop and implement POC 04/27/16 08:16 Consult to Interventional Radiology [CONS] Routine Consulting Provider: Radiology Interventional Cols Reason for Consult: Please evaluate for placement of a temporary HD catheter for HD initation in the LINDA setting. Call Completed: Yes 04/27/16 08:30 Consult to Dialysis [CONS] ONCE 04/27/16 08:38 Consult to Cardiology [CONS] Routine Comment: Consulting Provider: Linh Arguello Reason for Consult: acute decomepnsated heart failure, anuria. Call Completed: No 04/28/16 08:15 Consult to Dialysis [CONS] ONCE 04/29/16 08:21 Consult to Palliative Care [CONS] Routine Comment: Consulting Provider: Palliative Care [facility] Discharging clinician: Cecy Claire - Patient Status Disposition: Hospice - Medical Facility Condition: Critical Functional capacity at discharge: bed bound Overall status at discharge: patient is not back to baseline - Discharge Instructions Follow Up With: Sepideh Gallo MD [Primary Care Provider] - (PT IS GOING TO [facility] NO PCP APPOINTMENT NEEDED) Chapo Escobar CNP [Advanced Practice Nurse] - 05/12/16 3:00 pm Magnolia Garcia CNP [Advanced Practice Nurse] - 05/09/16 10:15 am (surgery follow-up) Additional Instructions: Cleanse incision with soap and water and pat dry daily Non-weight bearing to Left surgical incision PT/OT daily - Diet and Activity Activity: increase activity as tolerated Diet: advance to your usual diet Interval History: 5 year old female with pmh of CAD,PAD, DM admitted with diabetic foot ulcer with abscess and altered mental status. dmitted with infection of the left heel , ulcer, severe PAD, s/p above knee amputation on 04/24/16, doing well post surgery, no e/o any infection. Patient is on pain control with narcotics. Pt has PAD of right LE with diminished pulses and ulcers, was followed by wound care here. Patient was diagnosed to have LINDA on CKD Stage 4 with worsening renal function and minimal urine output, with out any response to lasix requiring to be started on dialysis. She had 3 seeisons of dialysis during hospital stay. Patient was diagnosed to have NSTEMI on admission for which she was evaluated by cardiology adn decision was made to proceed with medical management given her chronic comorbidities. Patient continued to worsen despite medical measures. She remains critically ill. discussions with family regarding goals of care ensued. Following discussion with her who is the POA decision was amde to proceed with hospice care and make her comfort care. Patient's sister and her niece weer present at the time of discussion. Patient ahs Afib for which she is on coumadin which is to be continued on discharge. INR remains subtherapeutic. Dose coumadin and monitor INR closely. lizz was on hild for dialysis catheter placement on admission. She is continued on home meds for her other chronic medical problems. Hospital course: Ms. Olivia is a 75 year old female - Time Spent with Patient Total time spent providing and/or coordinating discharge services: Greater than 30 minutes - Constitutional Vitals: Temp Pulse Resp BP Pulse Ox 98.4 F 85 16 136/51 95 04/29/16 11:00 04/29/16 11:00 04/29/16 11:00 04/29/16 11:00 04/29/16 11:00 General appearance: Present: A&O X 1, answers questions appropriately (n). Absent: cooperative - Head Head exam: Present: atraumatic, normocephalic - Eye Eye exam: Present: PERRL, conjuntiva pink, sclera anicteric Pupils: Present: PERRL - Neck Neck exam general surgery: Present: supple, trachea midline. Absent: lymphadenopathy - Respiratory Respiratory exam: Present: CTAB. Absent: accessory muscle use, rales, rhonchi, wheezes - Cardiovascular Cardiovascular exam: Present: RRR, +S1, +S2. Absent: diastolic murmur, gallop, rubs, systolic murmur - GI/Abdominal GI/Abdominal exam: Present: normal bowel sounds, soft, no peritoneal signs. Absent: distended, tenderness - Extremities Exam Extremities exam: Present: warm, radial pulses palpable and symetrical. Absent : calf tenderness, cyanotic, normal inspection (left AKA), pedal edema - Neurological Exam Neurological exam: Present: CN II-XII intact, oriented X3, no focal deficits. Absent: pronater drift, facial droop, speech deficit - Skin Skin exam: Present: dry, intact - VTE Contraindication No Overlap Therapy: Medical contraindication
--- NOTE | 2016-04-29 15:37 | Physician Discharge Referral ---
ExtendedCare Referral Info Transfer To: SNF Provider in Charge after Transfer: PCP, Finishing Pan Operator Institutional Level of Care: Skilled - Diagnosis (1) Status post above knee amputation of left lower extremity Status: Acute (2) Non-ST elevation myocardial infarction (NSTEMI) due to mismatch of myocardial oxygen supply and demand Status: Acute (3) Acute metabolic encephalopathy Status: Acute (4) Acute on chronic renal failure Status: Acute (5) Diabetic foot ulcer associated with type 2 diabetes mellitus, with fat layer exposed Status: Chronic (6) DM2 (diabetes mellitus, type 2) Status: Chronic (7) Supratherapeutic INR Status: Acute (8) Hypothyroidism Status: Chronic (9) Congestive heart failure Status: Chronic (10) Microcytic hypochromic anemia Status: Chronic - Transfer Medications Prescriptions: LORazepam [Lorazepam] 0.5 mg PO BID PRN #10 tablet PRN Reason: Anxiety Home Medications: Furosemide [Lasix] 40 mg PO BID 06/25/15 [History] Metoprolol Tartrate [Lopressor] 50 mg PO BID 06/25/15 [History] Multivit-Min/FA/Lycopen/Lutein [A Thru Z Select Multivit Tab] 1 tab PO DAILY [History] Omeprazole [PriLOSEC] 20 mg PO DAILY 06/25/15 [History] Paricalcitol [Zemplar] 1 mcg PO DAILY 06/25/15 [History] Amlodipine [Norvasc] 5 mg PO DAILY 03/09/16 [History] Gabapentin [Neurontin] 100 mg PO HS 03/09/16 [History] Insulin NPH Hum/Reg Insulin Hm [Humulin 70/30 Kwikpen] 28 unit SQ HS 03/09/16 [ History] Insulin NPH Hum/Reg Insulin Hm [Humulin 70/30 Kwikpen] 30 unit SQ QAM 03/09/16 [ History] Levothyroxine Sodium [Levoxyl] 200 mcg PO DAILY 03/09/16 [History] Warfarin [Coumadin] 1.5 mg PO QPM 03/09/16 [History] Mirtazapine [Remeron] 15 mg PO HS 03/30/16 [History] HYDROcodone/Acet 5/325 mg [[place] 5-325 mg] 1 tab PO Q8H PRN 04/01/16 [History] Digoxin [Lanoxin] 0.125 mg PO DAILY #30 tablet 04/02/16 [Rx] Isosorbide MONOnitrate (24 HR) [Imdur] 60 mg PO DAILY #30 tab.er.24h 04/02/16 [ Rx] Acetaminophen [Tylenol] 650 mg PO Q6HR PRN #0 tablet 04/29/16 [Rx] Docusate [Colace] 100 mg PO BID PRN #0 capsule 04/29/16 [Rx] Insulin LISPRO [HumaLOG] 0 units SQ HS vial 04/29/16 [Rx] Insulin LISPRO [HumaLOG] 0 units SQ TIDAC vial 04/29/16 [Rx] LORazepam [Lorazepam] 0.5 mg PO BID PRN #10 tablet 04/29/16 [Rx] Quetiapine Fumarate [Seroquel] 12.5 mg PO HS tablet 04/29/16 [Rx] Allergies/Adverse Reactions: Allergies codeine Allergy (Verified 03/02/16 10:31) Hives Penicillins [PCN] Allergy (Verified 03/02/16 10:31) Hives - Respiratory Orders Smoking Cessation: Smoking cessation has been advised. For more information, call the [place] Tobacco Quit Line at 5-074-LNOUNOW. CERTIFICATION: I certify that the transfer of the above named patient to an Extended Care Facility is necessary for the continuing treatment of the diagnosis listed. The above information is true and accurate reflection of patient's current condition. Confidential - Redisclosure prohibited without a patient's written consent.
[2016-04-29] MEDS ORDERED: *HR* Heparin 5,000 UNIT/ML VIAL SQ SCH (16:00)
[2016-04-29] MEDS ORDERED: *HR* Warfarin 1 MG TABLET PO ONE (18:00)
[2016-04-30 05:06] LABS: Alpha 2 Globulin (PEP) 0.75 g/dL (0.48-1.05); Beta Globulin (PEP) 0.56 g/dL (0.48-1.10)
[2016-05-01 09:20] LABS: IFE Reflexed IFE Done; Immunoglobulin G 1100 mg/dL (768-1632); Immunoglobulin M 153 mg/dL (35-263)
[2016-05-01 09:21] LABS: ANA IgG IFA Titer <1:40 (<1:40); Immunoglobulin A 324 mg/dL (68-408)
[2016-05-02 10:32] LABS: Myeloperoxidase Ab 0 AU/mL (0-19); Serine Protease-3 Antibody 2 AU/mL (0-19)
[2016-05-03 08:08] LABS: GBM IgG Multiplex Bead Assay 0 AU/mL (0-19); Glomerular Basement Memb IgG NEGATIVE (Negative)
--- NOTE | 2016-05-25 00:52 | Internal Med History&Physical ---
Date of Encounter: 04/20/16 (Late entry: 05/25/16) Time of Encounter: 01:00 (01:00) Assessment and Plan (1) Toxic metabolic encephalopathy Status: Acute . (2) Delirium due to conditions classified elsewhere Status: Acute . (3) UTI (urinary tract infection), bacterial Status: Acute . (4) Cellulitis of both lower extremities Status: Acute . (5) Diabetic foot ulcer associated with type 2 diabetes mellitus, with fat layer exposed Status: Chronic . Qualifiers: Diabetic foot ulcer location: unspecified part of foot Laterality: left Qualified Code(s): E11.621 - Type 2 diabetes mellitus with foot ulcer; L97.522 - Non-pressure chronic ulcer of other part of left foot with fat layer exposed (6) Diabetic foot infection Status: Acute . (7) Microcytic hypochromic anemia Status: Chronic . (8) Non-ST elevation myocardial infarction (NSTEMI) due to mismatch of myocardial oxygen supply and demand Status: Acute . (9) Ischemic cardiomyopathy Status: Chronic . (10) Acute on chronic respiratory failure with hypoxia and hypercapnia Status: Acute . (11) Demand ischemia of myocardium Status: Acute . (12) Ischemia due to increased oxygen demand Status: Acute . (13) Elevated troponin I measurement Status: Acute . (14) Diabetic nephropathy with proteinuria Status: Chronic . (15) CKD (chronic kidney disease) stage 4, GFR 15-29 ml/min Status: Chronic . (16) Congestive heart failure Status: Chronic . Qualifiers: Congestive heart failure type: combined Congestive heart failure chronicity : acute on chronic Qualified Code(s): I50.43 - Acute on chronic combined systolic (congestive) and diastolic (congestive) heart failure (17) DM2 (diabetes mellitus, type 2) Status: Chronic . 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 Qualifiers: Hyperlipidemia type: unspecified Qualified Code(s): E78.5 - Hyperlipidemia , unspecified (19) Hypertension Status: Chronic . Qualifiers: Hypertension type: unspecified secondary hypertension Qualified Code(s): I15.9 - Secondary hypertension, unspecified; I15 - Secondary hypertension (20) Hypothyroidism Status: Chronic . Qualifiers: Hypothyroidism type: unspecified Qualified Code(s): E03.9 - Hypothyroidism , unspecified (21) Peripheral vascular disease Status: Chronic . (22) Acute metabolic encephalopathy due to hypoglycemia Status: Acute . Internal Medicine - H&P: HPI Chief complaint: Effusion. Lethargy. Admitted From: Hospital to Hospital Transfer (Hospital to hospital transfer from [facility] ED) Plans for Post Hospital Care: Home History of present illness: Ms. Olivia is a 75 year old female [place] resident history significant of hypertension , dyslipidemia, GERD, CKD III, type II DM, DM nephropathy with proteinuria, DM peripheral neuropathy, history of left lower extremity DVT (chronic warfarin therapy), DM foot infection/ulceration, CAD/AMI 2, PAD/L-CEA/LLE-fem art stent , osteoarthritis, osteoporosis, morbid obesity/deconditioning, former smoker, etc.. The patient was visited and interviewed and examined. Due to the patient's current illness she presents as a non-historian of current circumstances and events. Encephalopathy with delirium is manifest. Details are collected from available source material, NH/ED staff query, etc.. Patient was received as a hospital transfer to [facility] from [facility] ED by EMS services from snf with complaint of acute alteration of mental status associated with spiking fever, confusion, lethargy precipitous decline in the patient's ability to complete activities of daily living independently. Patient found prior to transfer evidence of UTI) myocardium with associated non-ST elevation myocardial infarction. Metabolic electrolyte. Also associated. Symptoms were described as waxing and waning in severity. Fever and generalized weakness and foul-smelling urine was reported. No report from snf of any knowledge of chest pain complaints of respiratory complaints sweats chills headache and loss of appetite abdominal pain nausea vomiting diarrhea urinary incontinence witnessed seizure syncope or focal neurologic deficit. Findings in the ED: Temperature 99.9 pulse 65 respirations 16 BP 138/42. O2 saturation 99% on 2 L per nasal cannula. Atrial blood gas pH 7.45 PCO2 52 PO2 107 bicarbonate 35.9 O2 saturation 99% liters per nasal cannula. APTT 40.1. Urinalysis large protein and trace ketones and moderate blood. Moderate bilirubin. Small leukocyte esterase. 15 RBC. 50 WBC. Urine squamous epithelial cells. Bacteria. Yeast. WBC 7.5 hemoglobin 10.6 platelets 152,000. Differential normal. PT 28.4 INR 2.6. Ammonia 28. Lactic acid 1.1. Metabolic panel noted BUN 26 creatinine 2.1. GFR 23. Glucose 39. Osmolality 301. Troponin 2.25. Hepatic function satisfactory. Albumin 2.3. Total 6.1. TSH 3.17. Lipase 7. BNP 2871. Digoxin 1.6. Chest x-ray demonstrated small bilateral pleural effusions. Mild pulmonary vascular congestion. No pneumothorax. Cardiac mediastinal silhouette stable. No acute osseous abnormalities. Preliminary impression suggests SIRS/sepsis criteria at time of admission. Source of infection combined urinary tract and diabetic wound with lower extremity cellulitis. Patient presents acutely ill and toxic. Toxic metabolic encephalopathy/delirium is evident. Acute on chronic hypercapnic respiratory failure consequence of the systolic and diastolic CHF exacerbation and demand ischemia with troponin elevation type II NSTEMI complicates immediate presentation and course. The patient presents increased risk for acute clinical decline and morbidity. Workup and treatments will proceed comprehensively. Cumulative laboratory and radiographic data base will be considered and discussed. Pertinent ancillary medical records including ECW and PCI documentation when available was reviewed and considered. Given the patient's presenting concerns, past medical history, clinical findings and symptoms, she is admitted at this time will undergo further evaluation and disposition. Orders were written as per the computerized physician order runner system.......................................................................... .................... Consultative opinions will be sought as clinical circumstances justify. Pain management needs will be addressed. Laboratory and radiographic data base will be updated as appropriate. Studies include: Cultures of blood urine sputum, UA, CPK, ammonia, prolactin, pt/inr, aptt, ddimer, cardiac injury panel, BNP, metabolic and hematologic panel, magnesium, phosphorus, ionized calcium, thyroid panel, lipid profile, A1c, C- peptide, CRP, sed rate, respiratory infection profile, respiratory virus panel, blood gas, lactic acid, serologies, etc. Precautions: Aspiration, fall, delirium protocol/surveillance initiated. Telemetry with continuous hemodynamic monitoring and pulse oximetry initiated. Orthostatic vital signs. Empiric antibiotic coverage: Intravenous vancomycin and Invanz pending culture data. Special studies: CT chest/head/b/l LEs, , chest x-ray, telemetry, EKG, echocardiogram. Pulmonary toilet: Incentive spirometry, aerosol bronchodilator, mucolytic, antitussive, supplemental oxygen. Corticosteroid therapyPRN. CPAP/BiPAP supplemental oxygen delivery employedPRN. Aerosol Mucomyst therapy may be employedPRN. Fluid and electrolyte repletion efforts will proceed. Careful attention to fluid balance and renal recovery will be emphasized. Avoidance of nephrotoxic exposure and adverse drug drug interaction in the setting of impaired renal function will be monitored closely. Acute coronary syndrome protocol/surveillance initiated. Aspirin, statin, beta cely. PRN nitrates. PRN morphine. Supplemental oxygen. JODEE inhibitor/ARB was held due to LINDA. Reinstate when status permits. Intravenous heparin drip (low dose) ACS protocol. Acute heart failure protocol/surveillance initiated. 1500 mL fluid restriction total per 24 hours. Strict input and output measurements and daily weights. Introduction of no added salt dietary restraint. Gentle diuresis with careful attention to fluid balance and hemodynamic status. Correction of metabolic and acid base deficit. Consider introduction hydralazine plus Isordil for preload and afterload reduction in the setting of acute kidney injury. DVT and PUD prophylaxis initiated: PPI therapy, intermittent pneumatic cuffs. Early ambulation will be encouraged. Immunization updates recommended. Influenza and pneumococcal vaccinations as part of ongoing preventative healthcare recommendations strongly recommended. Smoking cessation counseling briefly addressed. Patient is a former smoker. Advanced care directive discussion briefly addressed. Patient does not declare any healthcare restrictions at this time. Cardiovascular risk appraisal and cardiovascular risk reduction efforts will be emphasized. Physical /occupational therapy may be asked to evaluate patient's functional capacity and progress mobility if her circumstances justify. Sliding scale insulin coverage, ADA dietary restraint and schedule an as-needed basis fingerstick glucose assessments were initiated. Nutrition/diabetes education counseling may be considered as circumstances justify. Outpatient medication schedules will be reviewed, confirmed and facilitated as appropriate. Reconciliation of home treatments including adjustments, substitutions and reintroduction into the treatment regimen will address necessary maintenance therapies for chronic pre-existing medical conditions. Plan of care has been reviewed and discussed in detail with the patient. Questions addressed. Hospital course dictated by clinical findings, treatment response and potential consultative interventions. Patient is at risk for further acute clinical decline and morbidity due to her asdvanced age, presenting chief complaints and comorbid conditions. Condition is serious. Prognosis is guarded. CODE STATUS is reported as full. Past Med Surg Social Fam HX - Past Medical History Source: old records reviewed Medical history: arthritis (Cervical spine osteomyelitis 2010. Chronic low back pain. Amputation left great toe. Left lateral foot diabetic ulcer.), asthma, cardiomyopathy (LVEF A-35% 2011 echo. Mild MR. Grade 1 diastolic dysfunction.), CHF, COPD, coronary artery disease (Heart catheterization 2010 demonstrated mild LMCA disease 15% stenosis LAD 60% stenosis in midportion 60-70 % stenosis and proximal to mid left circumflex. Proximal RCA occluded. Collaterals from first obtuse marginal to the distal right posterolateral artery. LVEF 45-50%.), DVT (Left leg DVT. Chronic Coumadin therapy.), diabetes (Right eye blindness.), GERD, GI bleed (hemorrhoids.), hyperlipidemia, hypertension, myocardial infarction (x2), osteoporosis, peripheral artery disease (Left carotid artery endarterectomy. Left leg femoral artery stent.), renal disease, thyroid disease, venous stasis, other (Psoriatic arthritis. Psoriasis. Diabetic peripheral neuropathy.) Psychiatric history: anxiety, depression - Past Surgical History Surgical History: carotid endarterectomy, cataract (Bilateral cataracts.), cholecystectomy, orthopedic, other, other (Left great toe amputation 2009.), vascular surgery, LE stent (s) - Social History Smoking Status: Former smoker Packs per day: 1ppd x44yrs Smokeless Tobacco Status: No Alcohol use: none, unknown Drug use: none Occupational status: retired Current living situation: Home, With Family Activity Level: Independent ambulation, Mostly sedentary Recent Out of Country Travel Within the Last 8 Weeks: No Exposure or Possible Exposure to Illness During Travel: No - Family History Son Adopted: [place]: MELBA Age: 32 Family Member Ethnicity: Non- Living Status: Age at : 32 Cause of : CHF Hx Family Cardiac Disorders: Yes Hx Family Respiratory Disorders: No Hx Family Cancer: Yes (MOTHER, GRANDDAUGHTERS X 2) Hx Family GI Disorders: No Hx Family Genitourinary Disorders: Yes Hx Family Endocrine Disorder: Yes Hx Family Musculoskeletal Disorders: No Hx Family Neuromuscular Disorders: No Hx Family Neurologic Disorders: No Hx Family HEENT Disorders: No Hx Family Autoimmune Disorders: Yes Hx Family Reproductive Disorders: No Hx Family Psychosocial Disorders: Yes Hx Family Medical Disorders: Yes Mother Family Member Ethnicity: Non- Living Status: Hx Family Cardiac Disorders: No Hx Family Respiratory Disorders: No Hx Family Cancer: Yes Hx Family GI Disorders: No Hx Family Endocrine Disorder: No Hx Family Neuromuscular Disorders: No Hx Family Neurologic Disorders: No Hx Family HEENT Disorders: No Hx Family Autoimmune Disorders: No Internal Medicine - H&P: Meds Furosemide [Lasix] 40 mg PO BID 06/25/15 [History] Metoprolol Tartrate [Lopressor] 50 mg PO BID 06/25/15 [History] Multivit-Min/FA/Lycopen/Lutein [A Thru Z Select Multivit Tab] 1 tab PO DAILY [History] Omeprazole [PriLOSEC] 20 mg PO DAILY 06/25/15 [History] Paricalcitol [Zemplar] 1 mcg PO DAILY 06/25/15 [History] Amlodipine [Norvasc] 5 mg PO DAILY 03/09/16 [History] Gabapentin [Neurontin] 100 mg PO HS 03/09/16 [History] Insulin NPH Hum/Reg Insulin Hm [Humulin 70/30 Kwikpen] 28 unit SQ HS 03/09/16 [ History] Insulin NPH Hum/Reg Insulin Hm [Humulin 70/30 Kwikpen] 30 unit SQ QA 03/09/16 [ History] Levothyroxine Sodium [Levoxyl] 200 mcg PO DAILY 03/09/16 [History] Warfarin [Coumadin] 1.5 mg PO QPM 03/09/16 [History] Mirtazapine [Remeron] 15 mg PO HS 03/30/16 [History] HYDROcodone/Acet 5/325 mg [Heavener 5-325 mg] 1 tab PO Q8H PRN 04/01/16 [History] Digoxin [Lanoxin] 0.125 mg PO DAILY #30 tablet 04/02/16 [Rx] Isosorbide MONOnitrate (24 HR) [Imdur] 60 mg PO DAILY #30 tab.er.24h 04/02/16 [ Rx] Acetaminophen [Tylenol] 650 mg PO Q6HR PRN #0 tablet 04/29/16 [Rx] Docusate [Colace] 100 mg PO BID PRN #0 capsule 04/29/16 [Rx] Insulin LISPRO [HumaLOG] 0 units SQ HS vial 04/29/16 [Rx] Insulin LISPRO [HumaLOG] 0 units SQ TIDAC vial 04/29/16 [Rx] LORazepam [Ativan] 0.5 mg PO Q4HR PRN #10 tablet 04/29/16 [Rx] LORazepam [Lorazepam] 0.5 mg PO BID PRN #10 tablet 04/29/16 [Rx] OxyCODONE Oral Soln [OxyCODONE ORAL SOLN] 5 mg PO Q3H PRN #1 mls 04/29/16 [Rx] Quetiapine Fumarate [Seroquel] 12.5 mg PO HS tablet 04/29/16 [Rx] Allergies codeine Allergy (Verified 03/02/16 10:31) Hives Penicillins [PCN] Allergy (Verified 03/02/16 10:31) Hives ROS unobtainable: due to mental status All Systems PM: A 10-system review of systems was performed and is negative for pertinent findings except as documented above in the HPI. The patient presents acutely encephalopathic she is a non-historian of the current circumstances and events due to her current illness and associated delirium. Details collected from medical records, staff elicited comments and NH/ER/EMS triage. - Constitutional Constitutional: as per HPI - EENT Eyes: as per HPI Ears: as per HPI Nose, mouth and throat: as per HPI - Cardiovascular Cardiovascular ROS IM: as per HPI - Respiratory Respiratory: as per HPI - Gastrointestinal Gastrointestinal: as per HPI - Genitourinary Genitourinary: as per HPI Menstruation: as per HPI - Musculoskeletal Musculoskeletal ROS IM: as per HPI - Integumentary Integumentary IM: as per HPI - Neurological Neurological ROS: as per HPI - Psychiatric Psychiatric: as per HPI - Endocrine Endocrine IM: as per HPI - Hematologic/Lymphatic Hematologic/Lymphatic: as per HPI - Allergic/Immunologic Allergic/Immunologic: as per HPI - Constitutional Vitals: Temp Pulse Resp BP Pulse Ox 98.4 F 85 16 136/51 95 04/29/16 11:00 04/29/16 11:00 04/29/16 11:00 04/29/16 11:00 04/29/16 11:00 General appearance: Present: A&O X 0, disheveled, morbidly obese. Absent: cooperative, answers questions appropriately Exam: Lethargic. Stuporous. Arousable only to noxious stimuli. - Head Head exam: Present: atraumatic, normocephalic - Eye Eye exam: Present: EOMI, PERRL, conjuntiva pink, sclera anicteric Pupils: Present: normal accommodation, PERRL - ENT ENT exam: Present: mucous membranes dry, normal external ear exam, normal oropharynx - Neck Neck exam general surgery: Present: full ROM, supple, trachea midline. Absent: lymphadenopathy, nuchal rigidity - Respiratory Respiratory exam: Present: decreased breath sounds, CTAB. Absent: accessory muscle use, rales, rhonchi, wheezes - Cardiovascular Cardiovascular exam: Present: distant heart sounds, RRR, +S1, +S2. Absent: diastolic murmur, gallop, rubs, systolic murmur - GI/Abdominal GI/Abdominal exam: Present: diminished bowel sounds, soft, no peritoneal signs. Absent: distended, tenderness - Extremities Exam Extremities exam: Present: tenderness (Tenderness of both lower extremities.), warm, radial pulses palpable and symetrical. Absent: calf tenderness, cyanotic , pedal edema - Neurological Exam Neurological exam: Present: alert, altered, CN II-XII intact, motor sensory deficit. Absent: oriented X3, pronater drift, facial droop, speech deficit - Expanded Neurological Exam Neurological exam expanded: Present: ataxia, protecting the airway. Absent: expressive aphasia, inattentive Patient oriented to: Absent: person, place, time Speech: Present: slurred Coma Scale Eye Opening: To Pain Coma Scale Motor Response: Withdraws to Pain Coma Scale Verbal Response: Incomprehensible Coma Scale Total: 8 - Psychiatric Psychiatric exam: Present: flat affect - Skin Skin exam: Present: abrasion, dry, erythema, excoriation, intact, rash, warm - Expanded Skin Exam Distribution of rash: Present: RLE, LLE Description of rash: Present: crusting, erythematous, macular, purpura, swelling , tenderness Internal Med - H&P Results - Labs CBC & Chem 7: 04/29/16 04:40 04/29/16 04:40 - ABG Interpretation ABG results: 04/20/16 09:50 VBG pH 7.43 H VBG pCO2 54 H VBG pO2 46 H VBG HCO3 35.8 H - Impressions ITS Impressions Head CT 04/20/16 03:48 IMPRESSION: No acute intracranial abnormality. D/ / Mike Fox MD / Mike Fox MD Interpreting Provider: Mike Fox MD Chest X-Ray 04/21/16 06:10 IMPRESSION: Cardiomegaly with improved aeration of the lung bases D/ / Alex Lyon MD / Alex Lyon MD Interpreting Provider: Alex Lyon MD Foot X-Ray 04/21/16 17:00 IMPRESSION: Diffuse osteopenia. No definite evidence of acute fracture or dislocation of the left foot. Chronic changes as described above. Soft tissue swelling of the left foot. Question of soft tissue defects of the left heel. No definite evidence of adjacent bony erosion to suggest acute osteomyelitis. MRI can better detect subtle acute osteomyelitis. D/ / Ander Washington MD / Ander Washington MD Interpreting Provider: Ander Washington MD Guidance Needle Placement Ultrasound 04/27/16 00:00 IMPRESSION: Successful ultrasound guided right jugular temporary dialysis catheter placement. D/ 04/27/2016 14:29:41 Lianet Ball MD / Lala Douglas Interpreting Provider: Lianet Ball MD Insertion Non-Tunneled Catheter 04/27/16 00:00 IMPRESSION: Successful ultrasound guided right jugular temporary dialysis catheter placement. D/ / 04/27/2016 14:29:41 Lianet Ball MD / Lala Douglas Interpreting Provider: Lianet Ball MD Chest X-Ray 04/27/16 13:20 IMPRESSION: Status post right CVC placement with tip in the proximal superior vena cava. No pneumothorax. D/ / 04/27/2016 13:48:58 Jesus Ackerman MD / liza Interpreting Provider: Jesus Ackerman MD Chest X-Ray 04/29/16 08:24 IMPRESSION: Cardiomegaly without acute cardiopulmonary process identified. D/ / Drew Hewitt MD / Drew Hewitt MD Interpreting Provider: Drew Hewitt MD - VTE Contraindication No Overlap Therapy: Medical contraindication
== END 2016-04-29 18:40 | disposition hospice, inpatient (51) | DRG 853 ==
LOC: 2ANU → SUATTDRO 23:29 → 2NNU 04-20 07:27
PROVIDERS: ADMIT Pediatrics; ATTEND Internal Medicine